=== PATIENT | male | born 1945 | race Caucasian/White ===

== ENCOUNTER 2023-08-09 09:07 | Outpatient (OUT) | payer MEDICARE, SELFPAY ==
[2023-08-09 09:50] LABS: Basophils Percent Auto 0.3 % (0.2-2.0); Eosinophils Percent Auto 0.4 % (0.9-7.0); Hematocrit 38.3 % (42.0-54.0); Hemoglobin 12.3 g/dL (14.0-18.0); Immature Granulocytes Abs Auto 0.01 10^3/uL (0.00-0.03); Immature Granulocytes Pct Auto 0.1 % (0.0-0.5); Lymphocytes Percent Auto 30.4 % (20.5-60.0); Mean Corpuscular HGB Conc 32.1 g/dL (29.9-35.2); Mean Corpuscular Hemoglobin 33.8 pg (25.9-34.0); Mean Corpuscular Volume 105.2 fL (80.0-94.0); Mean Platelet Volume 10.3 fL (9.5-13.5); Monocytes Absolute Auto 0.7 10^3/uL (0.3-0.8); Monocytes Percent Auto 9.8 % (1.7-12.0); Platelet Count 161 10^3/uL (150-450); Red Blood Count 3.64 10^6/uL (4.70-6.10); Red Cell Distribution Width 12.6 % (11.0-15.0); White Blood Count 6.7 10^3/uL (4.0-11.0)
[2023-08-09 10:21] LABS: Estimated Average Glucose 120 mg/dL; Glycohemoglobin A1C 5.8 % (4.5-6.2)
[2023-08-09 10:31] LABS: Alanine Aminotransferase 49 U/L (16-63); Albumin Globulin Ratio 0.9; Albumin Level 3.7 g/dL (3.4-5.0); Alkaline Phosphatase 85 U/L (46-116); Anion Gap 11.4; Aspartate Amino Transferase 45 U/L (15-37); BUN Creatinine Ratio 14.6; Bilirubin Total 0.7 mg/dL (0.2-1.0); Carbon Dioxide 31.5 mmol/L (21.0-32.0); Chloride 100 mmol/L (98-107); Cholesterol 152 mg/dL (<=200); Estimated GFR (African America >60 (>=60); Estimated GFR (Non-African Ame 50 (>=60); Globulin 4.2 g/dL; Glucose 139 mg/dL (74-106); HDL Cholesterol 51 mg/dL (40-60); Potassium 3.9 mmol/L (3.5-5.1); Sodium 139 mmol/L (136-145); Total Protein 7.9 g/dL (6.4-8.2); Triglycerides 172 mg/dL (<=150); VLDL CHOLESTEROL 34.4 mg/dL
[2023-08-09 12:41] LABS: Free T4 0.97 ng/dL (0.76-1.46)
== END 2023-08-09 09:08 | disposition home or self-care (01) ==
LOC: LAB 09:16
PROVIDERS: PCP Family Medicine; Visit Provider Family Medicine
DX: E78.5 Hyperlipidemia, unspecified (principal); Z12.11 Encounter for screening for malignant neoplasm of colon; R73.09 Other abnormal glucose; I10 Essential (primary) hypertension
CPT/HCPCS: 36415; 80053; 80061; 83036; 84439; 84443; 85025

== ENCOUNTER 2023-08-13 15:47 | Outpatient (REF) | payer MEDICARE, SELFPAY ==
[2023-08-13 19:06] LABS: Occult Blood Positive
== END 2023-08-13 15:48 | disposition home or self-care (01) ==
LOC: LAB 15:47
PROVIDERS: PCP Family Medicine; Visit Provider Family Medicine
DX: E78.5 Hyperlipidemia, unspecified (principal); Z12.11 Encounter for screening for malignant neoplasm of colon; R73.09 Other abnormal glucose; I10 Essential (primary) hypertension
CPT/HCPCS: G0328

== ENCOUNTER 2023-12-07 10:51 | Outpatient (OUT) | payer MEDICARE, SELFPAY ==
--- NOTE | 2023-12-07 | XR_ITS ---
[address] [address] Patient Name: QUETA QUIROGA MRN: [id number] date: 1945 Sex: M Assigned Patient Location: Current Patient Location: Accession/Order Number: [id number] Exam Date: 12/07/2023 10:55 Report Date: 12/08/2023 05:35 At the request of: GITA MAGANA Procedure: XR lumbar spine min 4V EXAMINATION: XR lumbar spine min 4V HISTORY: LOWER BACK PAIN COMPARISON: CT L-spine 11/14/2023 FINDINGS: BONES: Mechanical fusion L4-L5 via bilateral pedicle screws and rods; no appreciable hardware fracture or loosening. Mild left convex curvature of upper lumbar spine. Mild grade 1 retrolisthesis of L2 on 3 without appreciable change during flexion and extension. Moderate degenerative facet arthropathy L3-L4 through L5-S1. Posterior decompression L3 and L4. DISC SPACES: Intervertebral spacer at L4-L5. Moderate narrowing at remaining lumbar levels and visible lower thoracic spine. PARASPINOUS: Negative. No paraspinous abnormality is seen. OTHER: Negative. XR/XR lumbar spine min 4V IMPRESSION: 1. Stable mechanical fusion L4-L5 without evidence of hardware failure. 2. Multilevel moderate or greater degenerative disc disease and degenerative facet arthropathy without appreciable acute abnormality. 3. No change in alignment during flexion and extension. Electronically authenticated by: LIVE JOLLEY Date: 12/08/2023 05:35
--- OUTSIDE RECORDS SUMMARY | 2023-12-07 11:13 | XMS_ITS | CCD ---
Author Organization [facility] Care Team Providers Care Registered Phlebotomist Part Time Name Role Phone DR KAITLYNN COTA Attending Unavailable DR KAITLYNN COTA Consulting Unavailable DR KAITLYNN COTA Primary Care Unavailable DR KAITLYNN COTA Admitting Unavailable MD Kaitlynn Cota Primary Care Provider [phone] MD Kaitlynn Cota Attending Provider Kaitlynn Cota Attending Unavailable Kaitlynn Cota Primary Care Unavailable Kaitlynn Cota Admitting Unavailable Allergies Allergy Classification Reported Allergen(s) Allergy Type Date of Onset Reaction(s) Facility (1 source) Ciprofloxacin Drug Allergy 08-14-2016 [facility] Repository Problems Active Problems Problem Classification Problem Date Documented Date Episodic/Chronic Spondylosis; intervertebral disc disorders; other back problems (1 source) Unspecified thoracic, thoracolumbar and lumbosacral intervertebral disc disorder; Translations: [Unspecified thoracic, thoracolumbar and lumbosacral intervertebral disc disorder] Onset: 11-14-2023 Chronic Unclassified (3 sources) COUGH, UNSPECIFIED; Translations: [COUGH, UNSPECIFIED] Onset: 08-19-2022 Unclassified (1 source) CONTACT W/AND (SUSP) EXPOS COVID-19; Translations: [CONTACT W/AND (SUSP) EXPOS COVID-19] Onset: 08-19-2022 Past or Other Problems Problem Classification Problem Date Documented Da te Episodic/Chronic Unclassified (1 source) COUGH, UNSPECIFIED; Translations: [COUGH, UNSPECIFIED] Onset: 08-16-2022 Results Test Name Value Interpretation Reference Range Facil ity CT lumbar spine wo conon CT lumbar spine wo [facility] [address] [address] [address] Scan Report Signed Patient: Bishnu Love MR#: [id number] : 1945 Acct:[id number] Age/Sex: 78 / M ADM Date: 11/14/23 Loc: CT Room: Type: [facility] Attending Dr: Kaitlynn Cota MD Copies to: Kaitlynn Cota MD Ordering Provider: Kaitlynn Cota MD Date of Service: 11/14/23 CT/CT lumbar spine wo con: M51.9 CT lumbar spine wo con 11/14/2023 2:50 PM History:Low back pain, left-sided numbness TECHNIQUE: Multi detector CT axial slices of the lumbar spine were obtained without IV contrast. Volumetric acquisition sagittal, coronal, and 3-D reconstructions were performed and reviewed on a separate workstation. CT was performed with one or more of the following dose reduction techniques: Automated exposure control, adjustment of the mA and/or kV according to patient size, or use of iterative reconstruction technique. COMPARISON: 03/11/2013 FINDINGS: There is preservation of the vertebral body heights. There is posterior fusion at L4-L5 with posterior decompression from L2 through L4. There is mild to moderate disc height loss with vacuum disc phenomena at L1-L2, L2-L3, L3-4, with mild disc height loss and vacuum disc phenomena at L5-S1. Disc, endplate, and facet degenerative changes contribute to neural foraminal narrowing at multiple levels, greatest at L3-L4 and L2-L3. No fractures or dislocations are seen. The alignment of the lumbar spine is normal. The paraspinous soft tissues are within normal limits. The visualized lung parenchyma is unremarkable. Atherosclerotic changes are noted in the abdominal aorta and its branches. CT/CT lumbar spine wo con IMPRESSION: Fracture or subluxation. Similar posterior fusion hardware is noted at L4-5. Similar degenerative changes are noted throughout. Impression dictated by: Toby Dodge M.D.11/14/2023 4:16 PM Dictation Location: [place] [address] Transcribed By: [facility] 11/14/23 1616 Dictated By: Toby Dodge II, MD 11/14/23 1606 Signed By: 11/14/23 1616 [facility] Covid-19 PCR (CVDTBH)on 08-03 SARS-CoV-2 (COVID-19) RNA BENITO+probe Ql (Unsp spec) Not detected Normal NOT DETECTED [facility] Comment on above: Result Comment: This test is not yet approved or cleared by the [place] FDA. When there are no FDA-approved or cleared tests available, and other criteria are met, FDA can make tests available under an emergency access mechanism called an Emergency Use Authorization (EUA). The EUA for this test is supported by the [place] of Health and Human Service's (HHS's) declaration that circumstances exist to justify the emergency use of in vitro diagnostics for the detection and/or diagnosis of the virus that causes COVID-19. This EUA will remain in effect (meaning this test can be used) for the duration of the COVID-19 declaration justifying emergency of IVDs, unless it is terminated or revoked by FDA (after which the test may no longer be used). When diagnostic testing is negative, the possibility of a false negative should be considered in the context of a patient's recent exposures and the presence of clinical signs and symptoms consistent with SARS-CoV-2. Performed By: #### C VDTBH #### [facility] [address] [place] [address] Dr. Leeann Vail INFLUENZA A AND B AGon 08-16 [facility] BELOW Normal [facility] Comment on above: Result Comment: Nega tive for Flu A protein angiten. Infection due to Flu A cannot be ruled out. Flu A angiten in the sample may be below the detection limit of the test. Performed By: #### I NFLUAB #### [facility] [address] [place] [address] Dr. Leeann Vail INFLUBNEG SEE BELOW Normal [facility] Comment on above: Result Comment: Nega tive for Flu B protein antigen. Infection due to Flu B cannot be ruled out. Flu B antigen in the sample may be below the detection limit of the test. Performed By: #### I NFLUAB #### [facility] [address] [place] [address] Dr. Leeann Vail INFLUENZA A AG Negative Normal NEGATIVE SEE COMMENT [facility] Comment on above: Performed By: #### I NFLUAB #### [facility] [address] [place] [address] Dr. Leeann Vail INFLUENZA B AG Negative Normal NEGATIVE SEE COMMENT [facility] Comment on above: Performed By: #### I NFLUAB #### [facility] [address] [address] [address] Leeann Vail INTERNAL CONTROLS Within Normal Limits Normal Wi thin Normal Limits [facility] Comment on above: Performed By: #### I NFLUAB #### [facility] [address] [address] [address] Leeann Vail Lab Reportson 04-02-2020 Lab Reports [id number] CD:127 [facility] Consent for Procedure/Surger yon 03-24-2020 Consent for Procedure/Surgery [id number] 0CD:127 [facility] Ambulatory Clinical Summaryo n 03-16-2020 Ambulatory Clinical Summary {[id number]}CD:[id number] [facility] Physician Referralon 020 Physician Referral [id number] CD:127 [facility] Encounters Encounter Date Encounter Type Care Provider Facility Start: 11-14-2023 End: 11-14-2023 ambulatory Kaitlynn Cota Facility:[facility] Start: 11-14-2023 End: 11-14-2023 ambulatory MD Kaitlynn Cota Work Phone: [facility] Work Phone: Start: 11-14-2023 End: 11-14-2023 Patient encounter procedure MD Kaitlynn Coat Work Phone: [facility] [place] Work Phone: Start: 08-16-2022 End: 08-16-[address] KAITLYNN COTA Facility:[facility] Procedures Date Procedure Procedure Detail Performing Clinician Start: 11-14-2023 CT of lumbar spine without contrast MD Kaitlynn Cota Work Phone: Payers Date Payer Category Payer Self-pay 1959 Medicare [id number] 1959 Unknown [id number] 1945 Unknown [id number] Medicare Medicare Outpatient [id number] Unknown [employer] C o [id number] Unknown [id number] Social History Date Type Detail Facility Tobacco smoking stat [facility] Unknown if ever smoked [facility] Work Phone: Start: 1945 Sex Assigned At Male F [facility] Evaluation note Note Date & Type Note Facility Evaluation note No assessment information availa ble [facility] Work Phone: Summary Purpose Family History No Family History Records FoundNo Family History Records FoundNo Family History Records Found Advance Directives No Advanced Directives Records Found Advance Directive Response Recorded Date/ Time Advance Directives No November 12 024 3:11pm Chief Complaint and Reason for Visit Chief Complaint m51.9 Additional Source Comments (unrecognized sect ion and content) No Status Records FoundNo Status Records FoundNo Status Records Found INFORMATION SOURCE (unrecogn ized section and content) DATE CREATED AUTHOR 04/30/2020 [facility] DATE CREATED AUTHOR AUTHOR'S ORGANIZ ATION 08/23/2022 [facility] DATE CREATED AUTHOR AUTHOR'S ORGANIZ ATION 11/23/2023 [facility] Care Teams (unrecognized sec tion and content) Team Status: Active Member Role Status Dates Kaitlynn Cota MD Primary Care Provider Active Team Status: Inactive Member Role Status Dates Kaitlynn Cota MD Primary Care Provide r, Attending Provider Active Start: November 14, 2023 End: November 14, 2023 Goals (unrecognized section and content) Goals may be documented in a n alternate section FOR RECORDS PERTAINING TO PATIENTS WHO ARE OR HAVE BEEN ENROLLED IN A CHEMICAL DEPENDENCY/SUBSTANCEABUSE PROGRAM, SOME INFORMATION MAY BE OMITTED. This clinical summary was aggregated from multiple sources. Caution should be exercised in using it in the provision of clinical care. This summary normalizes information from multiple sources, and as a consequence, information in this document may materially change the coding, format and clinical context of patient data. In addition, data may be omitted in some cases. CLINICAL DECISIONS SHOULD BE BASED ON THE PRIMARY CLINICAL RECORDS. [facility]. provides no warranty or guarantee of the accuracy or completeness of information in this document.
== END 2023-12-07 10:52 | disposition home or self-care (01) ==
LOC: EC 10:51
PROVIDERS: PCP Family Medicine; Visit Provider Orthopaedic Surgery Orthopaedic Surgery of the Spine
DX: M54.50 Low back pain, unspecified (principal); M51.36 Other intervertebral disc degeneration, lumbar region
CPT/HCPCS: 72110

== ENCOUNTER 2024-01-14 13:49 | Outpatient (RCR) | payer MEDICARE, SELFPAY | END 2024-03-06 15:56 | disposition home or self-care (01) | LOC: PT 13:49 | PROVIDERS: PCP Family Medicine; Visit Provider Orthopaedic Surgery Orthopaedic Surgery of the Spine | DX: M48.062 Spinal stenosis, lumbar region with neurogenic claudication (principal) | CPT/HCPCS: 97010; 97110; 97112; 97140; 97162; 97530; G0283 ==

== ENCOUNTER 2024-04-09 15:13 | Outpatient (OUT) | payer MEDICARE, SELFPAY ==
--- NOTE | 2024-04-09 15:21 | US_ITS ---
[address] [address] Patient Name: QUETA QUIROGA MRN: [id number] date: 1945 Sex: M Assigned Patient Location: US Current Patient Location: Accession/Order Number: [id number] Exam Date: 04/09/2024 15:25 Report Date: 04/10/2024 05:38 At the request of: KAITLYNN LIZ Procedure: US venous doppler LE BI EXAMINATION: US venous doppler LE BI HISTORY: Edema R60.9 COMPARISON: None FINDINGS: REGION: Bilateral lower extremities THROMBI: None. COMPRESSIBILITY: Normal compressibility. FLOW: Normal waveform and antegrade flow between 5 and 20 cm/s. OTHER: Prior stripping of great saphenous vein. US/US venous doppler LE BI IMPRESSION: 1. No deep vein thrombus within the right or left lower extremity. Electronically authenticated by: LIVE JOLLEY Date: 04/10/2024 05:38
--- OUTSIDE RECORDS SUMMARY | 2024-04-09 15:21 | XMS_ITS | CCD ---
Author Organization [facility] Care Team Providers Care Soft Sugar Supervisor Name Role Phone DR KAITLYNN LIZ Attending Unavailable DR KAITLYNN LIZ Consulting Unavailable DR KAITLYNN LIZ Primary Care Unavailable DR KAITLYNN LIZ Admitting Unavailable MD Kaitlynn Liz Primary Care Provider [phone] MD Kaitlynn Liz Attending Provider [phone] MD Jed Salgado F Attending Provider [phone] MD Kaitlynn Liz Primary Care Provider [phone] WILLIAM Monte Attending Provider [phone] MD Kaitlynn Liz Primary Care Provider [phone] MD Albert Swan Admit Provider MD Albert Swan Attending Provider MARK Franco Other Provider Unavailable MARK Edge Other Provider Unavailable MARK Martin Other Provider Unavailable MARK Srinivasan Other Provider Unavailable MARK Pedraza Other Provider Unavailable MD Jackelyn Mott Other Provider DO Gisela Chaidez Other Provider MD Alex Pabon Other Provider [phone] DO Percy Hernandez Other Provider MD Josiah Avila Other Provider [phone] MD Nancy Poon Other Provider MD Elvin Reece Other Provider Unavailable RALPH Ruggiero Other Provider [phone] MD Rich Mcclain Other Provider [phone] MD Geovani Blue Other Provider MD Clara De La Torre Other Provider MD Ada Vo Other Provider DO Stephen Salinas Other Provider MD Kaitlin Fournier Other Provider MD Steve Steinberg Other Provider GISELLE Glass-C Leta Alberts Other Provider RALPH Kumar Other Provider Unavailable MD Ren Ortega Other Provider MD Mynor Hernandez Other Provider MD Flavio Gee Other Provider MD Cindy Hager Other Provider Unavailable MD Ousmane Benson Other Provider DO Kristan Valle Other Provider DO Dk Patino Other Provider RALPH King Other Provider DO Gus Marie Other Provider [phone] MD Joey Olson Other Provider RALPH Christopher Other Provider RALPH Cabello Other Provider [phone] MD Kelsea Steele Other Provider MD Shimon Stout Other Provider DO Josh Brown Other Provider DO Han Ruth Other Provider MD Felix Gee Other Provider MD Julia Rai Other Provider RALPH Deal Other Provider MD Antonio Boss Other Provider MD Дмитрий Clemons Other Provider MARK Kowalski Other Provider Unavailable Hoy, Kaitlynn M Attending Unavailable Hoy, Kaitlynn M Primary Care Unavailable Hoy, Kaitlynn M Admitting Unavailable Hoy, Kaitlynn M Primary Care Unavailable Naomi, Selvon F Attending Unavailable Naomi, Selvon F Admitting Unavailable Hoy, Kaitlynn M Primary Care Unavailable Austin Monte L Attending Unavailable Mell, Austin L Admitting Unavailable Beny, Albert Attending Unavailable Beny, Albert Admitting Unavailable Hoy, Kaitlynn M Primary Care Unavailable Nathalie Franco Consulting Unavailable Leslie Edge Consulting Unavailable Tejal Martin Consulting Unavailable Nuris Srinivasan Consulting Unavailable Halie Pedraza Consulting Unavailable Jackelyn Mott Consulting Unavailable Gisela Chaidez Consulting Unavailable Alex Pabon Consulting Unavailable Percy Hernandez Consulting UnavailJosiah Grimaldo Consulting Unavailable Nancy Poon Consulting Unavailable Elvin Reece Consulting Unavailable Sharon Ruggiero Consulting UnavailRich Narayan Consulting Unavailable Geovani Blue Consulting Unavailable Clara De La Torre Consulting Unavailable Ada Vo Consulting Unavailable Stephen Salinas Consulting Unavailable Kaitlin Fournier Consulting Unavailable Steve Steinberg Consulting Unavailable Leta Glass Consulting Unavailable Ronald Kumar Consulting Unavailable Ren Ortega Consulting Unavailab Mynor Chase Consulting Unavailable Flavio Gee Consulting Unavailable Cindy Hager Consulting Unavailable Ousmane Benson Consulting Unavailable Kristan Valle Consulting Unavailable Dk Patino Consulting Unavailable Vilma King Consulting Unavailable Gus Marie Consulting Unavailable Joey Olson Consulting Unavailable Tiffany Christopher Consulting Unavailable Elaine Cabello Consulting Unavailable Kelsea Steele Consulting Unavailable Shimon Stout Consulting Unavailable Josh Brown Consulting Unavailable Han Ruth Consulting Unavailable Felix Gee Consulting Unavailable Julia Rai Consulting Unava ilMeche Copeland Consulting Unavailable Antonio Boss Consulting Unavailable Дмитрий Clemons Consulting Unavailable Kowalski, Ingrid Consulting Unavailable Allergies Allergy Classification Reported Allergen(s) Allergy Type Date of Onset Reaction(s) Facility (1 source) Ciprofloxacin Drug Allergy 08-14-2016 [facility] Repository (2 sources) Cephalexin; Translations: [cephalexin] Drug Allergy 03-18-2024 Itching [facility] Medications Current Medications Medication Drug Class(es) Dates Sig (Normalized) Sig (Original) acetaminophen 325 mg / oxyCODONE hydrochloride 5 mg oral tablet (2 sources) Opioid Agonist Start: 03-31-2024 take 1 tablet by mouth every six hours Oxycodone-Acetami nophen Active 1 TAB PO Every 6 hours 20 March 31, 2024 Start: 03-16-2024 End: 03-31-2024 take 1 tablet by mouth every six hours Oxycodone-Acetaminophen (Percocet) 5-325 mg tablet Discontinued 1 TAB PO Every 6 hours March 16, 2024 12:00am March 31, 2024 9:20am aspirin 81 mg oral tablet (2 sources) Platelet Aggregation Inhibitor, Nonsteroidal Anti-inflammatory Drug Start: 03-16-2024 End: 03-31-2024 take 81 mg by mouth once daily Aspirin Active 81 MG PO Daily March 31, 2024 9:19am atorvastatin 10 mg oral tablet (2 sources) HMG-CoA Reductase Inhibitor Start: 03-16-2024 End: 03-31-2024 take 10 mg by mouth once daily at bedtime Atorvastatin Active 10 MG PO Daily at bedtime 30 March 31, 2024 12:00am cyclobenzaprine hydrochloride 10 mg oral tablet (2 sources) Muscle Relaxant Start: 03-16-2024 End: 03-31-2024 take 10 mg by mouth three times daily Cyclobenzaprine Active 10 MG PO Three times daily 30 March 31, 2024 12:00am docusate sodium 100 mg oral capsule (1 source) Start: 03-31-2024 take 100 mg by mouth twice daily Docusate Sodium Active 100 MG PO Twice daily 60 March 31, 2024 12:00am ferrous sulfate 324 mg delayed release oral tablet (2 sources) Start: 03-31-2024 Ferrous Sulfate Active 324 MG PO Every 48 hours 15 March 31, 2024 12:00am Start: 03-16-2024 End: 03-31-2024 take 1 tablet by mouth twice daily Ferrous Sulfate (Feosol) 325 mg (65 mg iron) tablet Discontinued 325 MG PO Twice daily March 16, 2024 12:00am March 31, 2024 9:20am glimepiride 1 mg oral tablet (2 sources) Sulfonylurea Start: 03-16-2024 End: 03-31-2024 take 1 mg by mouth once daily at breakfast Glimepiride Active 1 MG PO Daily with breakfast March 31, 2024 12:00am lisinopril 20 mg oral tablet (2 sources) Angiotensin Converting Enzyme Inhibitor Start: 03-31-2024 take 20 mg by mouth once daily Lisinopril Active 20 MG PO Daily March 31, 2024 12:00am Start: 03-16-2024 End: 03-31-2024 take 40 mg by mouth once daily Lisinopril Discontinued 40 MG PO Daily March 16, 2024 12:00am March 31, 2024 9:20am melatonin 5 mg oral tablet (1 source) Start: 03-31-2024 take 10 mg by mouth once daily at bedtime Melatonin Active 10 MG PO Daily at bedtime 60 March 31, 2024 12:00am metoprolol tartrate 50 mg oral tablet (1 source) beta-Adrenergic Millie Start: 03-31-2024 take 50 mg by mouth twice daily Metoprolol Tartrate Active 50 MG PO Twice daily 60 March 31, 2024 12:00am pantoprazole 40 mg delayed release oral tablet (1 source) Proton Pump Inhibitor Start: 03-31-2024 take 40 mg by mouth once daily Pantoprazole Active 40 MG PO Daily 30 March 31, 2024 12:00am traZODone hydrochloride 50 mg oral tablet (1 source) Serotonin Reuptake Inhibitor Start: 03-31-2024 take 50 mg by mouth once daily at bedtime Trazodone Active 50 MG PO Daily at bedtime March 31, 2024 12:00am Completed/Discontinued Medications Medication Drug Class(es) Dates Sig (Normalized) Sig (Original) atenolol 50 mg oral tablet (1 source) beta-Adrenergic Millie Start: 03-16-2024 End: 03-31-2024 take 50 mg by mouth once daily Atenolol Discontinued 50 MG PO Daily March 16, 2024 12:00am March 31, 2024 9:20am calcium carbonate 1500 mg / cholecalciferol 200 unt oral tablet (1 source) Vitamin D Start: 03-16-2024 End: 03-31-2024 take 1 tablet by mouth once daily Calcium Carbonate-Vitamin D3 (Calcium 600 + D(3)) 600 mg-5 mcg (200 unit) tablet Discontinued 1 TAB PO Daily March 16, 2024 12:00am March 31, 2024 9:20am fluticasone propionate 0.05 mg/actuat metered dose nasal spray (1 source) Corticosteroid Start: 03-16-2024 End: 03-31-2024 take 1 spray(s) nasal route once daily Fluticasone Propionate (24 Hour Allergy Relief) 50 mcg/actuation spray,suspension Discontinued 1 SPRAY INTRANASAL Daily March 16, 2024 12:00am March 31, 2024 9:20am administer into each nostril furosemide 20 mg oral tablet (1 source) Loop Diuretic Start: 03-16-2024 End: 03-31-2024 take 20 mg by mouth once daily Furosemide Discontinued 20 MG PO Daily March 16, 2024 12:00am March 31, 2024 9:20am hyoscyamine sulfate 0.125 mg disintegrating oral tablet (1 source) Start: 03-16-2024 End: 03-31-2024 take 1 tablet by mouth every six hours Hyoscyamine Sulfate (Anaspaz) 0.125 mg tablet,disintegra ting Discontinued 0.125 MG PO Every 6 hours March 16, 2024 12:00am March 31, 2024 9:20am meloxicam 15 mg oral tablet (1 source) Nonsteroidal Anti-inflammatory Drug Start: 03-16-2024 End: 03-31-2024 take 15 mg by mouth once daily Meloxicam Discontinued 15 MG PO Daily March 16, 2024 12:00am March 31, 2024 9:20am Multivitamin (Daily Multi-Vitamin) tablet (1 source) Start: 03-16-2024 End: 03-31-2024 take 1 tablet by mouth once daily Multivitamin (Daily Multi-Vitamin) tablet Discontinued 1 TAB PO Daily March 16, 2024 12:00am March 31, 2024 9:20am nabumetone 500 mg oral tablet (1 source) Nonsteroidal Anti-inflammatory Drug Start: 03-16-2024 End: 03-31-2024 take 500 mg by mouth twice daily Nabumetone Discontinued 500 MG PO Twice daily March 16, 2024 12:00am March 31, 2024 9:20am [place] 6-Jkm-Jlj-Fish Oil (Fish Oil) 1,000 mg (120 mg-180 mg) capsule (1 source) Start: 03-16-2024 End: 03-31-2024 take 1 capsule by mouth once daily [place] 5-Xlj-Wgt-Fish Oil (Fish Oil) 1,000 mg (120 mg-180 mg) capsule Discontinued 1 CAP PO Daily March 16, 2024 12:00am March 31, 2024 9:20am omeprazole 20 mg delayed release oral capsule (1 source) Proton Pump Inhibitor Start: 03-16-2024 End: 03-31-2024 take 20 mg by mouth once daily Omeprazole Discontinued 20 MG PO Daily March 16, 2024 12:00am March 31, 2024 9:20am ondansetron 4 mg disintegrating oral tablet (1 source) Serotonin-3 Receptor Antagonist Start: 03-16-2024 End: 03-31-2024 take 4 mg by mouth every six hours Ondansetron Discontinued 4 MG PO Every 6 hours March 16, 2024 12:00am March 31, 2024 9:20am Problems Active Problems Problem Classification Problem Date Documented Date Episodic/Chronic Administrative/socia l admission (3 sources) Other reduced mobility; Translations: [Impaired mobility and activities of daily living] Onset: 03-16-2024 03-17-2024 Episodic Bacterial infection; unspecified site (1 source) Bacterial infection, unspecified; Translations: [Bacterial infection, unspecified] Onset: 03-16-2024 Episodic Chronic kidney disease (3 sources) Chronic kidney disease; Translations: [Chronic kidney disease, unspecified] Onset: 03-16-2024 03-17-2024 Chronic Diabetes mellitus without complication (3 sources) Diabetes mellitus; Translations: [Type 2 diabetes mellitus without complications] Onset: 03-16-2024 03-17-2024 Chronic Disorders of lipid metabolism (3 sources) Hyperlipidemia; Translations: [Hyperlipidemia, unspecified] Onset: 03-16-2024 03-17-2024 Chronic Esophageal disorders (3 sources) Gastroesophageal reflux disease; Translations: [Gastro-esophageal reflux disease without esophagitis] Onset: 03-16-2024 03-17-2024 Chronic Essential hypertension (3 sources) Hypertensive disorder; Translations: [Essential (primary) hypertension] Onset: 03-16-2024 03-17-2024 Chronic Other connective tissue disease (1 source) History of lumbar fusion; Translations: [Arthrodesis status] 03-17-2024 Episodic Other connective tissue disease (1 source) Arthrodesis status; Translations: [Arthrodesis status] 03-31-2024 Episodic Residual codes; unclassified (1 source) Other specified health status; Translations: [Other specified health status] Onset: 03-16-2024 Episodic Spondylosis; intervertebral disc disorders; other back problems (2 sources) Other intervertebral disc degeneration, lumbosacral region; Translations: [Unspecified thoracic, thoracolumbar and lumbosacral intervertebral disc disorder] Onset: 11-14-2023 Chronic Spondylosis; intervertebral disc disorders; other back problems (3 sources) Spinal stenosis of lumbar region; Translations: [Spinal stenosis, lumbar region without neurogenic claudication] Onset: 03-16-2024 03-17-2024 Episodic Unclassified (3 sources) COUGH, UNSPECIFIED; Translations: [COUGH, UNSPECIFIED] Onset: 08-19-2022 Unclassified (1 source) CONTACT W/AND (SUSP) EXPOS COVID-19; Translations: [CONTACT W/AND (SUSP) EXPOS COVID-19] Onset: 08-19-2022 Unclassified (1 source) Low back pain, unspecified; Translations: [Low back pain, unspecified] Onset: 12-28-2023 Urinary tract infections (3 sources) Bacterial urinary infection; Translations: [Urinary tract infection, site not specified] Onset: 03-16-2024 03-19-2024 Episodic Viral infection (4 sources) Disease caused by 2019-nCoV; Translations: [COVID-19] 03-18-2024 Episodic Viral infection (1 source) COVID-19; Translations: [COVID-19] Onset: 03-16-2024 Past or Other Problems Problem Classification Problem Date Documented Da te Episodic/Chronic Unclassified (1 source) COUGH, UNSPECIFIED; Translations: [COUGH, UNSPECIFIED] Onset: 08-16-2022 Results Test Name Value Interpretation Reference Range Facility Capillary blood glucose gayla urement by glucometer (mass/volume)Ordered By: Albert Swan on 03-31-2024 Glucose [Mass/Vol] 127 mg/dL Normal [facility] Comment on above: Random Glucose Refer ence Range is dependent on time and content of last meal. Glucose of more than 200 mg/dL in a nonstressed, ambulatory subject supports the diagnosis of Diabetes Mellitus. Result Comment: [place] Glucose Reference Range is dependent on time and content of last meal. Glucose of more than 200 mg/dL in a nonstressed, ambulatory subject supports the diagnosis of Diabetes Mellitus. PERFORMED BY: [address] [place] [address] PATHOLOGIST CASTER HELPER SHELBIE ALMONTE M.D. Performed By: #### G LULS #### Point of Care testing , Glucose Poct Glucometerson 0 03-30-2024 Glucose [Mass/Vol] 203 mg/dL Normal [facility] Comment on above: Result Comment: [facility] Glucose Reference Range is dependent on time and content of last meal. Glucose of more than 200 mg/dL in a nonstressed, ambulatory subject supports the diagnosis of Diabetes Mellitus. PERFORMED BY: [address] [place] [address] PATHOLOGIST CASTER HELPER SHELBIE ALMONTE M.D. Performed By: #### G LULS #### Point of Care testing , Glucose [Mass/Vol] 121 mg/dL Normal [facility] Comment on above: Result Comment: [place] Glucose Reference Range is dependent on time and content of last meal. Glucose of more than 200 mg/dL in a nonstressed, ambulatory subject supports the diagnosis of Diabetes Mellitus. PERFORMED BY: [address] [place] [address] PATHOLOGIST CASTER HELPER SHELBIE ALMONTE M.D. Performed By: #### G LULS #### Point of Care testing , Glucose [Mass/Vol] 174 mg/dL Normal [facility] Comment on above: Result Comment: [place] Glucose Reference Range is dependent on time and content of last meal. Glucose of more than 200 mg/dL in a nonstressed, ambulatory subject supports the diagnosis of Diabetes Mellitus. PERFORMED BY: [place] [address] PATHOLOGIST CASTER HELPER SHELBIE ALMONTE M.D. Performed By: #### G LULS #### Point of Care testing , Glucose [Mass/Vol] 131 mg/dL Normal [facility] Comment on above: Result Comment: [place] [facility] Glucose Reference Range is dependent on time and content of last meal. Glucose of more than 200 mg/dL in a nonstressed, ambulatory subject supports the diagnosis of Diabetes Mellitus. PERFORMED BY: [place] [address] PATHOLOGIST CASTER HELPER SHELBIE ALMONTE M.D. Performed By: #### G LULS #### Point of Care testing , Commemt1 Glu2: Cleaned Meter Normal [facility] Comment on above: Result Comment: PERF ORMED BY: [place] [address] PATHOLOGIST CASTER HELPER SHELBIE ALMONTE M.D. Performed By: #### G LULS #### Point of Care testing , Glucose [Mass/Vol] 120 mg/dL Normal [facility] Comment on above: Result Comment: [place] Glucose Reference Range is dependent on time and content of last meal. Glucose of more than 200 mg/dL in a nonstressed, ambulatory subject supports the diagnosis of Diabetes Mellitus. Performed By: #### G LULS #### Point of Care testing , No Panel InformationOrdered By: Albert Swan on 03-30-2024 Bedside Glucose Comment Glu2: cleaned meter [facility] Glucose Poct Glucometerson 0 03-29-2024 Commemt1 Glu2: Cleaned Meter Normal [facility] Comment on above: Result Comment: PERF ORMED BY: [place] [id number] PATHOLOGIST CASTER HELPER SHELBIE ALMONTE M.D. Performed By: #### G LULS #### Point of Care testing , Glucose [Mass/Vol] 204 mg/dL Normal [facility] Comment on above: Result Comment: [place] [facility] Glucose Reference Range is dependent on time and content of last meal. Glucose of more than 200 mg/dL in a nonstressed, ambulatory subject supports the diagnosis of Diabetes Mellitus. Performed By: #### G SUPA #### Point of Care testing , Commemt1 Glu2: Cleaned Meter Normal [facility] Comment on above: Result Comment: PERF ORMED BY: [address] [place] [address] PATHOLOGIST CASTER HELPER SHELBIE ALMONTE M.D. Performed By: #### P AB, CMP, CBC #### [address] Glucose [Mass/Vol] 150 mg/dL Normal [facility] Comment on above: Result Comment: [place] [facility] Glucose Reference Range is dependent on time and content of last meal. Glucose of more than 200 mg/dL in a nonstressed, ambulatory subject supports the diagnosis of Diabetes Mellitus. Performed By: #### P AB, CMP, CBC #### [address] Glucose [Mass/Vol] 127 mg/dL Normal [facility] Comment on above: Result Comment: [place] om Glucose Reference Range is dependent on time and content of last meal. Glucose of more than 200 mg/dL in a nonstressed, ambulatory subject supports the diagnosis of Diabetes Mellitus. PERFORMED BY: [place] [address] PATHOLOGIST CASTER HELPER SHELBIE ALMONTE M.D. Performed By: #### P AB, CMP, CBC #### [place] [address] [place] Glucose [Mass/Vol] 120 mg/dL Normal [facility] Comment on above: Result Comment: [place] [facility] Glucose Reference Range is dependent on time and content of last meal. Glucose of more than 200 mg/dL in a nonstressed, ambulatory subject supports the diagnosis of Diabetes Mellitus. PERFORMED BY: [address] [place] [address] PATHOLOGIST CASTER HELPER SHELBIE ALMONTE M.D. Performed By: #### G LULS #### Point of Care testing , Glucose Poct Glucometerson 0 03-28-2024 Glucose [Mass/Vol] 193 mg/dL Normal [facility] Comment on above: Result Comment: [place] [facility] Glucose Reference Range is dependent on time and content of last meal. Glucose of more than 200 mg/dL in a nonstressed, ambulatory subject supports the diagnosis of Diabetes Mellitus. PERFORMED BY: [address] [place] [id number] PATHOLOGIST CASTER HELPER SHELBIE ALMONTE M.D. Performed By: #### G LULS #### Point of Care testing , Glucose [Mass/Vol] 105 mg/dL Normal [facility] Comment on above: Result Comment: [place] om Glucose Reference Range is dependent on time and content of last meal. Glucose of more than 200 mg/dL in a nonstressed, ambulatory subject supports the diagnosis of Diabetes Mellitus. Performed By: #### G LULS #### Point of Care testing , Commemt1 Glu2: Cleaned Meter Normal [facility] Comment on above: Result Comment: PERF ORMED BY: [facility] [address] [place] [address] PATHOLOGIST CASTER HELPER SHELBIE ALMONTE M.D. Performed By: #### G LULS #### Point of Care testing , Glucose [Mass/Vol] 135 mg/dL Normal [facility] Comment on above: Result Comment: [place] [facility] Glucose Reference Range is dependent on time and content of last meal. Glucose of more than 200 mg/dL in a nonstressed, ambulatory subject supports the diagnosis of Diabetes Mellitus. Performed By: #### G LULS #### Point of Care testing , Glucose [Mass/Vol] 128 mg/dL Normal [facility] Comment on above: Result Comment: [place] om Glucose Reference Range is dependent on time and content of last meal. Glucose of more than 200 mg/dL in a nonstressed, ambulatory subject supports the diagnosis of Diabetes Mellitus. PERFORMED BY: [facility] [address] [place] [address] PATHOLOGIST CASTER HELPER SHELBIE ALMONTE M.D. Performed By: #### G LULS #### Point of Care testing , Glucose Poct Glucometerson 0 03-27-2024 Glucose [Mass/Vol] 173 mg/dL Normal [facility] Comment on above: Result Comment: [place] [facility] Glucose Reference Range is dependent on time and content of last meal. Glucose of more than 200 mg/dL in a nonstressed, ambulatory subject supports the diagnosis of Diabetes Mellitus. PERFORMED BY: [place] [address] PATHOLOGIST CASTER HELPER SHELBIE ALMONTE M.D. Performed By: #### G LULS #### Point of Care testing , Commemt1 Glu2: Cleaned Meter Normal [facility] Comment on above: Result Comment: PERF ORMED BY: [place] [address] PATHOLOGIST CASTER HELPER SHELBIE ALMONTE M.D. Performed By: #### P AB, CMP, CBC #### [address] Glucose [Mass/Vol] 156 mg/dL Normal [facility] Comment on above: Result Comment: [place] [facility] Glucose Reference Range is dependent on time and content of last meal. Glucose of more than 200 mg/dL in a nonstressed, ambulatory subject supports the diagnosis of Diabetes Mellitus. Performed By: #### P AB, CMP, CBC #### [address] Glucose [Mass/Vol] 159 mg/dL Normal [facility] Comment on above: Result Comment: [place] [facility] Glucose Reference Range is dependent on time and content of last meal. Glucose of more than 200 mg/dL in a nonstressed, ambulatory subject supports the diagnosis of Diabetes Mellitus. PERFORMED BY: [place] [address] PATHOLOGIST CASTER HELPER SHELBIE ALMONTE M.D. Performed By: #### G LULS #### Point of Care testing , Glucose [Mass/Vol] 130 mg/dL Normal [facility] Comment on above: Result Comment: [place] om Glucose Reference Range is dependent on time and content of last meal. Glucose of more than 200 mg/dL in a nonstressed, ambulatory subject supports the diagnosis of Diabetes Mellitus. PERFORMED BY: [address] [id number] PATHOLOGIST CASTER HELPER SHELBIE ALMONTE M.D. Performed By: #### G LULS #### Point of Care testing , Glucose Poct Glucometerson 0 03-26-2024 Commemt1 Glu2: Cleaned Meter Normal [facility] Comment on above: Result Comment: PERF ORMED BY: [facility] [address] [place] [id number] PATHOLOGIST CASTER HELPER SHELBIE ALMONTE M.D. Performed By: #### G LULS #### Point of Care testing , Glucose [Mass/Vol] 226 mg/dL Normal [facility] Comment on above: Result Comment: [place] Glucose Reference Range is dependent on time and content of last meal. Glucose of more than 200 mg/dL in a nonstressed, ambulatory subject supports the diagnosis of Diabetes Mellitus. Performed By: #### G LULS #### Point of Care testing , Glucose [Mass/Vol] 92 mg/dL Normal [facility] Comment on above: Result Comment: [place] Glucose Reference Range is dependent on time and content of last meal. Glucose of more than 200 mg/dL in a nonstressed, ambulatory subject supports the diagnosis of Diabetes Mellitus. PERFORMED BY: [address] [address] PATHOLOGIST CASTER HELPER SHELBIE ALMONTE M.D. Performed By: #### G LULS #### Point of Care testing , Glucose [Mass/Vol] 239 mg/dL Normal [facility] Comment on above: Result Comment: [place] Glucose Reference Range is dependent on time and content of last meal. Glucose of more than 200 mg/dL in a nonstressed, ambulatory subject supports the diagnosis of Diabetes Mellitus. PERFORMED BY: [address] [place] [address] PATHOLOGIST CASTER HELPER SHELBIE ALMONTE M.D. Performed By: #### G LULS #### Point of Care testing , Glucose [Mass/Vol] 129 mg/dL Normal [facility] Comment on above: Result Comment: [place] Glucose Reference Range is dependent on time and content of last meal. Glucose of more than 200 mg/dL in a nonstressed, ambulatory subject supports the diagnosis of Diabetes Mellitus. PERFORMED BY: [place] [address] PATHOLOGIST CASTER HELPER SHELBIE ALMONTE M.D. Performed By: #### G LULS #### Point of Care testing , Glucose Poct Glucometerson 0 03-25-2024 Commemt1 Glu2: Cleaned Meter Normal [facility] Comment on above: Result Comment: PERF ORMED BY: [place] [phone] PATHOLOGIST CASTER HELPER SHELBIE ALMONTE M.D. Performed By: #### P AB, CMP, CBC #### [address] Glucose [Mass/Vol] 196 mg/dL Normal [facility] Comment on above: Result Comment: [place] Glucose Reference Range is dependent on time and content of last meal. Glucose of more than 200 mg/dL in a nonstressed, ambulatory subject supports the diagnosis of Diabetes Mellitus. Performed By: #### P AB, CMP, CBC #### [address] Commemt1 Glu2: Cleaned Meter Normal [facility] Comment on above: Result Comment: PERF ORMED BY: [place] [address] PATHOLOGIST CASTER HELPER SHELBIE ALMONTE M.D. Performed By: #### G LULS #### Point of Care testing , Glucose [Mass/Vol] 114 mg/dL Normal [facility] Comment on above: Result Comment: [place] Glucose Reference Range is dependent on time and content of last meal. Glucose of more than 200 mg/dL in a nonstressed, ambulatory subject supports the diagnosis of Diabetes Mellitus. Performed By: #### G LULS #### Point of Care testing , Glucose [Mass/Vol] 258 mg/dL Normal [facility] Comment on above: Result Comment: [place] Glucose Reference Range is dependent on time and content of last meal. Glucose of more than 200 mg/dL in a nonstressed, ambulatory subject supports the diagnosis of Diabetes Mellitus. PERFORMED BY: [place] [address] PATHOLOGIST CASTER HELPER SHELBIE ALMONTE M.D. Performed By: #### P AB, CMP, CBC #### [address] Glucose [Mass/Vol] 148 mg/dL Normal [facility] Comment on above: Result Comment: [place] Glucose Reference Range is dependent on time and content of last meal. Glucose of more than 200 mg/dL in a nonstressed, ambulatory subject supports the diagnosis of Diabetes Mellitus. PERFORMED BY: [place] [address] PATHOLOGIST CASTER HELPER SHELBIE ALMONTE M.D. Performed By: #### G LULS #### Point of Care testing , COVID-19 [facility] 03-24-2024 SARS-CoV-2 (COVID-19) RNA BENITO+probe Ql (Unsp spec) Negative Normal Negative [facility] Comment on above: Order Comment: Healt hcare Worker?: N Result Comment: Testing for SARS-CoV-2 by RT-PCR This test was developed and its performance characteristics determined by [employer] and validated at the [facility]. This test has not been FDA cleared or approved. This test has been authorized by FDA under an Emergency Use Authorization (EUA). This test has been validated in accordance with the FDA's Guidance Document (Policy for Diagnostics Testing in Laboratories Certified to Perform High Complexity Testing under CLIA prior to Emergency Use Authorization for Coronavirus Disease-2019 during the Public Health Emergency) issued on December 04, 2019. This test is only authorized for the duration of time the declaration that circumstances exist justifying the authorization of the emergency use of in vitro diagnostic tests for detection of SARS-CoV-2 virus and/or diagnosis of COVID-19 infection under section 564(b)(1) of the Act, 21 U.S.C. 360bbb-3(b)(1), unless the authorization is terminated or revoked sooner. PERFORMED BY: [facility] [address] [place] [address] PATHOLOGIST CASTER HELPER SHELBIE ALMONTE M.D. Performed By: #### G LULS #### Point of Care testing , COVID-19 Positive/NegativeOr dered By: Albert Swan on 03-24-2024 SARS-CoV-2 (COVID-19) N gene BENITO+probe Ql (Resp) Negative Negative [facility] Comment on above: Testing for SARS-CoV -2 by RT-PCRThis test was developed and its performance characteristics determined by [employer]) and validated at the [facility]. This test has not been FDA cleared or approved. This test has been authorized by FDA under an Emergency Use Authorization (EUA). This test has been validated in accordance with the FDA's Guidance Document (Policy for Diagnostics Testing in Laboratories Certified to Perform High Complexity Testing under CLIA prior to Emergency Use Authorization for Coronavirus Disease-2019 during the Public Health Emergency) issued on December 04, 2019. This test is only authorized for the duration of time the declaration that circumstances exist justifying the authorization of the emergency use of in vitro diagnostic tests for detection of SARS-CoV-2 virus and/or diagnosis of COVID-19 infection under section 564(b)(1) of the Act, 21 U.S.C. 360bbb-3(b)(1), unless the authorization is terminated or revoked sooner. Glucose Poct Glucometerson 0 03-24-2024 Glucose [Mass/Vol] 152 mg/dL Normal [facility] Comment on above: Result Comment: [facility] Glucose Reference Range is dependent on time and content of last meal. Glucose of more than 200 mg/dL in a nonstressed, ambulatory subject supports the diagnosis of Diabetes Mellitus. PERFORMED BY: [facility] [address] [place] [address] PATHOLOGIST CASTER HELPER SHELBIE ALMONTE M.D. Performed By: #### G LULS #### Point of Care testing , Commemt1 Glu2: Cleaned Meter Normal [facility] Comment on above: Result Comment: PERF ORMED BY: [place] [address] PATHOLOGIST CASTER HELPER SHELBIE ALMONTE M.D. Performed By: #### G LULS #### Point of Care testing , Glucose [Mass/Vol] 117 mg/dL Normal [facility] Comment on above: Result Comment: [place] Glucose Reference Range is dependent on time and content of last meal. Glucose of more than 200 mg/dL in a nonstressed, ambulatory subject supports the diagnosis of Diabetes Mellitus. Performed By: #### G LULS #### Point of Care testing , Glucose [Mass/Vol] 149 mg/dL Normal [facility] Comment on above: Result Comment: [place] Glucose Reference Range is dependent on time and content of last meal. Glucose of more than 200 mg/dL in a nonstressed, ambulatory subject supports the diagnosis of Diabetes Mellitus. PERFORMED BY: [place] [address] PATHOLOGIST CASTER HELPER SHELBIE ALMONTE M.D. Performed By: #### G LULS #### Point of Care testing , Commemt1 Glu2: Cleaned Meter Normal [facility] Comment on above: Result Comment: PERF ORMED BY: [place] [address] PATHOLOGIST CASTER HELPER SHELBIE ALMONTE M.D. Performed By: #### G LULS #### Point of Care testing , Glucose [Mass/Vol] 146 mg/dL Normal [facility] Comment on above: Result Comment: [place] Glucose Reference Range is dependent on time and content of last meal. Glucose of more than 200 mg/dL in a nonstressed, ambulatory subject supports the diagnosis of Diabetes Mellitus. Performed By: #### G LULS #### Point of Care testing , Laboratory - Microbiology an d Antimicrobial susceptibilityOrdered By: Albert Swan on 03-24-2024 SARS-CoV-2 (COVID-19) RNA BENITO+probe Ql (Unsp spec) N/A [facility] Automated basophil %Ordered By: Glendy Calabrese on 03-23-2024 Basophils/100 WBC (Bld) 0.4 % Normal . [facility] Comment on above: Performed By: #### P AB, CMP, CBC #### [address] Automated basophil countOrde red By: Glendy Calabrese on 03-23-2024 Basophils (Bld) [#/Vol] 0.0 10*3/uL Normal 0.0-0.2 [facility] Comment on above: Result Comment: PERF ORMED BY: [place] [address] PATHOLOGIST CASTER HELPER SHELBIE ALMONTE M.D. Performed By: #### P AB, CMP, CBC #### [address] Automated blood monocyte cou ntOrdered By: Glendy Calabrese on 03-23-2024 Monocytes (Bld) [#/Vol] 0.9 10*3/uL High 0.0-0.8 [facility] Comment on above: Performed By: #### P AB, CMP, CBC #### [address] Automated eosinophil %Ordere d By: Glendy Calabrese on 03-23-2024 Eosinophils/100 WBC (Bld) 3.3 % Normal . [facility] Comment on above: Performed By: #### P AB, CMP, CBC #### [address] Automated eosinophil countOr dered By: Glendy Calabrese on 03-23-2024 Eosinophils (Bld) [#/Vol] 0.2 10*3/uL Normal 0.0-0.45 [facility] Comment on above: Performed By: #### P AB, CMP, CBC #### [address] Automated monocyte %Ordered By: Glendy Calabrese on 03-23-2024 Monocytes/100 WBC (Bld) 12.8 % Normal . [facility] Comment on above: Performed By: #### P AB, CMP, CBC #### [address] Automated neutrophil %Ordere d By: Glendy Calabrese on 03-23-2024 Neutrophils/100 WBC (Bld) 63.1 % Normal . [facility] Comment on above: Performed By: #### P AB, CMP, CBC #### [address] Basic Metabolic Panelon 03-04 Creatinine Clr Calc Pharmacy 52.37 Normal [facility] Comment on above: Result Comment: PERF ORMED BY: [place] [address] PATHOLOGIST CASTER HELPER SHELBIE ALMONTE M.D. Performed By: #### P AB, CMP, CBC #### [address] GFR/1.73 sq M.predicted MDRD (S/P/Bld) [Vol rate/Area] 52.800 mL/min/{1.73_m2} Normal [facility] Comment on above: Performed By: #### P AB, CMP, CBC #### [address] Calcium [Mass/volume] in Ser um or PlasmaOrdered By: Glendy Calabrese on 03-23-2024 Calcium [Mass/Vol] 8.9 mg/dL Normal 8.6-10.3 [facility] Comment on above: Performed By: #### P AB, CMP, CBC #### [facility] [address] [place] [address] [place] Carbon dioxide, total [Moles /volume] in Serum or PlasmaOrdered By: Glendy Calabrese on 03-23-2024 CO2 [Moles/Vol] 27.6 mmol/L Normal 21.0-31.0 [facility] Comment on above: Performed By: #### P AB, CMP, CBC #### [place] [address] [place] Chloride [Moles/volume] in S bhavin or PlasmaOrdered By: Glendy Calabrese on 03-23-2024 Chloride [Moles/Vol] 99 mmol/L Normal 98-107 [facility] Comment on above: Performed By: #### P AB, CMP, CBC #### [facility] [address] [place] [address] Complete Blood Count Auto Di ffon 03-23-2024 Mean Corpuscular HGB Conc 33.4 g/dL Normal 32.5-35.6 [facility] Comment on above: Performed By: #### P AB, CMP, CBC #### [facility] [address] NRBC% 0.1 /100{WBC} Normal 0-0.5 [facility] Comment on above: Performed By: #### P AB, CMP, CBC #### [address] Creatinine [Mass/volume] in Serum or PlasmaOrdered By: Glendy Calabrese on 03-23-2024 Creatinine [Mass/Vol] 1.37 mg/dL High 0.70-1.[address] [facility] Comment on above: Performed By: #### P AB, CMP, CBC #### [address] Erythrocyte distribution wid th [Ratio] by Automated countOrdered By: Glendy Calabrese on 03-23-2024 Erythrocyte distribution width (RBC) [Ratio] 13.2 % Normal 12.0-14.8 [facility] Comment on above: Performed By: #### P AB, CMP, CBC #### [facility] [address] [place] [address] Erythrocytes [#/volume] in B lood by Automated countOrdered By: Glendy Calabrese on 03-23-2024 RBC (Bld) [#/Vol] 2.75 10*6/uL Low 3.90-5.60 [facility] Comment on above: Performed By: #### P AB, CMP, CBC #### [address] Glucose Poct Glucometerson 0 03-23-2024 Glucose [Mass/Vol] 163 mg/dL Normal [facility] Comment on above: Result Comment: [place] Glucose Reference Range is dependent on time and content of last meal. Glucose of more than 200 mg/dL in a nonstressed, ambulatory subject supports the diagnosis of Diabetes Mellitus. PERFORMED BY: [place] [address] PATHOLOGIST CASTER HELPER SHELBIE ALMONTE M.D. Performed By: #### P AB, CMP, CBC #### [address] Commemt1 Glu2: Cleaned Meter Normal [facility] Comment on above: Result Comment: PERF ORMED BY: [place] [address] PATHOLOGIST CASTER HELPER SHELBIE ALMONTE M.D. Performed By: #### G LULS #### Point of Care testing , Glucose [Mass/Vol] 158 mg/dL Normal [facility] Comment on above: Result Comment: [place] Glucose Reference Range is dependent on time and content of last meal. Glucose of more than 200 mg/dL in a nonstressed, ambulatory subject supports the diagnosis of Diabetes Mellitus. Performed By: #### G LULS #### Point of Care testing , Commemt1 Glu2: Cleaned Meter Normal [facility] Comment on above: Result Comment: PERF ORMED BY: [place] [address] PATHOLOGIST CASTER HELPER SHELBIE ALMONTE M.D. Performed By: #### G LULS #### Point of Care testing , Glucose [Mass/Vol] 162 mg/dL Normal [facility] Comment on above: Result Comment: [place] Glucose Reference Range is dependent on time and content of last meal. Glucose of more than 200 mg/dL in a nonstressed, ambulatory subject supports the diagnosis of Diabetes Mellitus. Performed By: #### G LULS #### Point of Care testing , Glucose [Mass/Vol] 129 mg/dL Normal [facility] Comment on above: Result Comment: [place] Glucose Reference Range is dependent on time and content of last meal. Glucose of more than 200 mg/dL in a nonstressed, ambulatory subject supports the diagnosis of Diabetes Mellitus. PERFORMED BY: [address] [place] [id number] PATHOLOGIST CASTER HELPER SHELBIE ALMONTE M.D. Performed By: #### G SUPA #### Point of Care testing , Glucose [Mass/Vol] 122 mg/dL Normal [facility] Comment on above: Result Comment: [place] Glucose Reference Range is dependent on time and content of last meal. Glucose of more than 200 mg/dL in a nonstressed, ambulatory subject supports the diagnosis of Diabetes Mellitus. PERFORMED BY: [place] [id number] PATHOLOGIST CASTER HELPER SHELBIE ALMONTE M.D. Performed By: #### G SUPA #### Point of Care testing , Glucose [Mass/volume] in Ser um or PlasmaOrdered By: Glendy Calabrese on 03-23-2024 Glucose [Mass/Vol] 109 mg/dL High 70-100 [facility] Comment on above: ADA recommended refe rence rangeRandom Glucose Reference Range is dependent on time and content of last meal. Glucose of more than 200 mg/dL in a nonstressed, ambulatory subject supports the diagnosis of Diabetes Mellitus. Result Comment: [place] Glucose Reference Range is dependent on time and content of last meal. Glucose of more than 200 mg/dL in a nonstressed, ambulatory subject supports the diagnosis of Diabetes Mellitus. ADA recommended reference range Performed By: #### P AB, CMP, CBC #### [facility] [address] [place] [address] Hematocrit [Volume Fraction] of Blood by Automated countOrdered By: Glendy Calabrese on 03-23-2024 Hematocrit (Bld) [Volume fraction] 28.1 % Low 38.8-50.0 [facility] Comment on above: Performed By: #### P AB, CMP, CBC #### [facility] [address] [place] [address] Hemoglobin [Mass/volume] in BloodOrdered By: Glendy Calabrese on 03-23-2024 Hemoglobin (Bld) [Mass/Vol] 9.4 g/dL Low 13.0-17.0 [facility] Comment on above: Performed By: #### P AB, CMP, CBC #### [address] Leukocytes [#/volume] correc nadine for nucleated erythrocytes in Blood by Automated counOrdered By: Glendy Calabrese on 03-23-2024 WBC corrected for nucl RBC Auto (Bld) [#/Vol] 7.2 10*3/uL 4.1-10.5 [facility] Leukocytes [#/volume] in Blo od by Automated countOrdered By: Glendy Calabrese on 03-23-2024 WBC (Bld) [#/Vol] 7.2 10*3/uL Normal 4.1-10.5 [facility] Comment on above: Performed By: #### P AB, CMP, CBC #### [address] Lymphocytes [#/volume] in Bl ood by Automated countOrdered By: Glendy Calabrese on 03-23-2024 Lymphocytes (Bld) [#/Vol] 1.5 10*3/uL Normal 1.00-4.8 [facility] Comment on above: Performed By: #### P AB, CMP, CBC #### [address] Lymphocytes/100 leukocytes i n Blood by Automated countOrdered By: Glendy Calabrese on 03-23-2024 Lymphocytes/100 WBC (Bld) 20.4 % Normal . [facility] Comment on above: Performed By: #### P AB, CMP, CBC #### [address] MCH [Entitic mass] by Automa nadine countOrdered By: Glendy Calabrese on 03-23-2024 MCH (RBC) [Entitic mass] 34.1 pg Normal 27.5-35.2 [facility] Comment on above: Performed By: #### P AB, CMP, CBC #### [address] MCHC Auto (RBC) [Mass/Vol]Or dered By: Glendy Calabrese on 03-23-2024 MCHC (RBC) [Mass/Vol] 33.4 g/dL 32.5-35.[address] [facility] MCV [Entitic volume] by Auto mated countOrdered By: Glendy Calabrese on 03-23-2024 MCV (RBC) [Entitic vol] 102.1 fL High 83.5-101 [facility] Comment on above: Performed By: #### P AB, CMP, CBC #### [facility] [address] Neutrophils [#/volume] in Bl ood by Automated countOrdered By: Glendy Calabrese on 03-23-2024 Neutrophils (Bld) [#/Vol] 4.6 10*3/uL Normal 1.8-7.7 [facility] Comment on above: Performed By: #### P AB, CMP, CBC #### [address] No Panel InformationOrdered By: Glendy Calabrese on 03-23-2024 Estimated GFR (CKD-EPI) 52.800 mL/Min [facility] Creatinine Clearance (Chem 52.37 [facility] Nucleated erythrocytes [Pres ence] in Blood by Automated countOrdered By: Glendy Calabrese on 03-23-2024 Nucleated RBC Auto Ql (Bld) 0.1 /100{WBC} 0-0.5 [facility] Platelet mean volume [Entiti c volume] in Blood by Automated countOrdered By: Glendy Calabrese on 03-23-2024 Platelet mean volume (Bld) [Entitic vol] 8.0 fL Normal 6.6-10.1 [facility] Comment on above: Performed By: #### P AB, CMP, CBC #### [facility] [address] [place] [address] Platelets [#/volume] in Bloo d by Automated countOrdered By: Glendy Calabrese on 03-23-2024 Platelets (Bld) [#/Vol] 242 10*3/uL Normal 150-450 [facility] Comment on above: Performed By: #### P AB, CMP, CBC #### [place] [address] [place] Potassium [Moles/volume] in Serum or PlasmaOrdered By: Glendy Calabrese on 03-23-2024 Potassium [Moles/Vol] 4.3 mmol/L Normal 3.5-5.[address] [facility] Comment on above: Performed By: #### P AB, CMP, CBC #### [address] Serum or plasma anion gap de terminationOrdered By: Glendy Calabrese on 03-23-2024 Anion gap [Moles/Vol] 11.7 mmol/L Normal 6.0-15.0 [facility] Comment on above: Performed By: #### P AB, CMP, CBC #### [address] Sodium [Moles/volume] in Ser um or PlasmaOrdered By: Glendy Calabrese on 03-23-2024 Sodium [Moles/Vol] 134 mmol/L Low 136-145 [facility] Comment on above: Performed By: #### P AB, CMP, CBC #### [address] Urea nitrogen [Mass/volume] in Serum or PlasmaOrdered By: Glendy Calabrese on 03-23-2024 Urea nitrogen [Mass/Vol] 20 mg/dL Normal 7-25 [facility] Comment on above: Performed By: #### P AB, CMP, CBC #### [address] Glucose Poct Glucometerson 0 03-22-2024 Glucose [Mass/Vol] 210 mg/dL Normal [facility] Comment on above: Result Comment: [facility] Glucose Reference Range is dependent on time and content of last meal. Glucose of more than 200 mg/dL in a nonstressed, ambulatory subject supports the diagnosis of Diabetes Mellitus. PERFORMED BY: [place] [address] PATHOLOGIST CASTER HELPER SHELBIE ALMONTE M.D. Performed By: #### G LULS #### Point of Care testing , Glucose [Mass/Vol] 116 mg/dL Normal [facility] Comment on above: Result Comment: [facility] Glucose Reference Range is dependent on time and content of last meal. Glucose of more than 200 mg/dL in a nonstressed, ambulatory subject supports the diagnosis of Diabetes Mellitus. PERFORMED BY: [address] [place] [address] PATHOLOGIST CASTER HELPER SHELBIE ALMONTE M.D. Performed By: #### G LULS #### Point of Care testing , Glucose [Mass/Vol] 126 mg/dL Normal [facility] Comment on above: Result Comment: [facility] Glucose Reference Range is dependent on time and content of last meal. Glucose of more than 200 mg/dL in a nonstressed, ambulatory subject supports the diagnosis of Diabetes Mellitus. PERFORMED BY: [address] [place] [address] PATHOLOGIST CASTER HELPER SHELBIE ALMONTE M.D. Performed By: #### G LULS #### Point of Care testing , Glucose [Mass/Vol] 125 mg/dL Normal [facility] Comment on above: Result Comment: [facility] Glucose Reference Range is dependent on time and content of last meal. Glucose of more than 200 mg/dL in a nonstressed, ambulatory subject supports the diagnosis of Diabetes Mellitus. PERFORMED BY: [address] [place] [address] PATHOLOGIST CASTER HELPER SHELBIE ALMONTE M.D. Performed By: #### G LULS #### Point of Care testing , Glucose Poct Glucometerson 0 03-21-2024 Glucose [Mass/Vol] 222 mg/dL Normal [facility] Comment on above: Result Comment: [facility] Glucose Reference Range is dependent on time and content of last meal. Glucose of more than 200 mg/dL in a nonstressed, ambulatory subject supports the diagnosis of Diabetes Mellitus. PERFORMED BY: [address] [place] [address] PATHOLOGIST CASTER HELPER SHELBIE ALMONTE M.D. Performed By: #### G LULS #### Point of Care testing , Commemt1 Glu2: Cleaned Meter Normal [facility] Comment on above: Result Comment: PERF ORMED BY: [place] [address] PATHOLOGIST CASTER HELPER SHELBIE ALMONTE M.D. Performed By: #### G LULS #### Point of Care testing , Glucose [Mass/Vol] 117 mg/dL Normal [facility] Comment on above: Result Comment: [place] om Glucose Reference Range is dependent on time and content of last meal. Glucose of more than 200 mg/dL in a nonstressed, ambulatory subject supports the diagnosis of Diabetes Mellitus. Performed By: #### G LULS #### Point of Care testing , Commemt1 Glu2: Cleaned Meter Normal [facility] Comment on above: Result Comment: PERF ORMED BY: [place] [address] PATHOLOGIST CASTER HELPER SHELBIE ALMONTE M.D. Performed By: #### G LULS #### Point of Care testing , Glucose [Mass/Vol] 178 mg/dL Normal [facility] Comment on above: Result Comment: [place] Glucose Reference Range is dependent on time and content of last meal. Glucose of more than 200 mg/dL in a nonstressed, ambulatory subject supports the diagnosis of Diabetes Mellitus. Performed By: #### G LULS #### Point of Care testing , Glucose [Mass/Vol] 112 mg/dL Normal [facility] Comment on above: Result Comment: [place] Glucose Reference Range is dependent on time and content of last meal. Glucose of more than 200 mg/dL in a nonstressed, ambulatory subject supports the diagnosis of Diabetes Mellitus. PERFORMED BY: [place] [address] PATHOLOGIST CASTER HELPER SHELBIE ALMONTE M.D. Performed By: #### P AB, CMP, CBC #### [address] Basic Metabolic Panelon 07- Anion gap [Moles/Vol] Not performed Normal 6.0-15.0 [facility] Comment on above: Performed By: #### P AB, CMP, CBC #### [address] Calcium [Mass/Vol] 8.7 mg/dL Normal 8.6-10.3 [facility] Comment on above: Performed By: #### P AB, CMP, CBC #### [address] Chloride [Moles/Vol] 101 mmol/L Normal 98-107 [facility] Comment on above: Performed By: #### P AB, CMP, CBC #### [address] CO2 [Moles/Vol] 26.8 mmol/L Normal 21.0-31.0 [facility] Comment on above: Performed By: #### P AB, CMP, CBC #### [address] Creatinine [Mass/Vol] 1.50 mg/dL High 0.70-1.30 [facility] Comment on above: Performed By: #### P AB, CMP, CBC #### [place] [address] [place] Creatinine Clr Calc Pharmacy 47.83 Normal [facility] Comment on above: Result Comment: PERF ORMED BY: [place] [address] PATHOLOGIST CASTER HELPER SHELBIE ALMONTE M.D. Performed By: #### P AB, CMP, CBC #### [address] GFR/1.73 sq M.predicted MDRD (S/P/Bld) [Vol rate/Area] 47.358 mL/min/{1.73_m2} Normal [facility] Comment on above: Performed By: #### P AB, CMP, CBC #### [address] Glucose [Mass/Vol] 97 mg/dL Normal 70-100 [facility] Comment on above: Result Comment: [facility] Glucose Reference Range is dependent on time and content of last meal. Glucose of more than 200 mg/dL in a nonstressed, ambulatory subject supports the diagnosis of Diabetes Mellitus. ADA recommended reference range Performed By: #### P AB, CMP, CBC #### [address] Potassium Normal 3.5-5.1 [facility] Comment on above: Result Comment: Spec imen hemolyzed, redraw requested Performed By: #### P AB, CMP, CBC #### [address] Sodium [Moles/Vol] 135 mmol/L Low 136-145 [facility] Comment on above: Performed By: #### P AB, CMP, CBC #### [address] Urea nitrogen [Mass/Vol] 25 mg/dL Normal 7-25 [facility] Comment on above: Performed By: #### P AB, CMP, CBC #### [address] Complete Blood Count Auto Di ffon 03-20-2024 Basophils (Bld) [#/Vol] 0.0 10*3/uL Normal 0.0-0.2 [facility] Comment on above: Result Comment: PERF ORMED BY: [place] [address] PATHOLOGIST CASTER HELPER SHELBIE ALMONTE M.D. Performed By: #### P AB, CMP, CBC #### [place] [address] [place] Basophils/100 WBC (Bld) 0.5 % Normal . T [facility] Comment on above: Performed By: #### P AB, CMP, CBC #### [place] [address] [place] Eosinophils (Bld) [#/Vol] 0.2 10*3/uL Normal 0.0-0.45 [facility] Comment on above: Performed By: #### P AB, CMP, CBC #### [place] [address] [place] Eosinophils/100 WBC (Bld) 2.9 % Normal . [facility] Comment on above: Performed By: #### P AB, CMP, CBC #### [address] Erythrocyte distribution width (RBC) [Ratio] 13.3 % Normal 12.0-14.8 [facility] Comment on above: Performed By: #### P AB, CMP, CBC #### [address] Hematocrit (Bld) [Volume fraction] 27.7 % Low 38.8-50.0 [facility] Comment on above: Performed By: #### P AB, CMP, CBC #### [address] Hemoglobin (Bld) [Mass/Vol] 9.3 g/dL Low 13.0-17.0 [facility] Comment on above: Performed By: #### P AB, CMP, CBC #### [address] Lymphocytes (Bld) [#/Vol] 2.1 10*3/uL Normal 1.00-4.8 [facility] Comment on above: Performed By: #### P AB, CMP, CBC #### [address] Lymphocytes/100 WBC (Bld) 25.9 % Normal . [facility] Comment on above: Performed By: #### P AB, CMP, CBC #### [address] MCH (RBC) [Entitic mass] 35.1 pg Normal 27.5-35.2 [facility] Comment on above: Performed By: #### P AB, CMP, CBC #### [address] MCV (RBC) [Entitic vol] 104.1 fL High 83.5-101 T [facility] Comment on above: Performed By: #### P AB, CMP, CBC #### [address] Mean Corpuscular HGB Conc 33.7 g/dL Normal 32.5-35.6 [facility] Comment on above: Performed By: #### P AB, CMP, CBC #### [address] Monocytes (Bld) [#/Vol] 1.1 10*3/uL High 0.0-0.8 [facility] Comment on above: Performed By: #### P AB, CMP, CBC #### [address] Monocytes/100 WBC (Bld) 13.5 % Normal . [facility] Comment on above: Performed By: #### P AB, CMP, CBC #### [address] Neutrophils (Bld) [#/Vol] 4.7 10*3/uL Normal 1.8-7.7 [facility] Comment on above: Performed By: #### P AB, CMP, CBC #### [address] Neutrophils/100 WBC (Bld) 57.2 % Normal . [facility] Comment on above: Performed By: #### P AB, CMP, CBC #### [address] NRBC% 0.1 /100{WBC} Normal 0-0.5 [facility] Comment on above: Performed By: #### P AB, CMP, CBC #### [address] Platelet mean volume (Bld) [Entitic vol] 8.5 fL Normal 6.6-10.1 [facility] Comment on above: Performed By: #### P AB, CMP, CBC #### [address] Platelets (Bld) [#/Vol] 244 10*3/uL Normal 150-450 [facility] Comment on above: Performed By: #### P AB, CMP, CBC #### [address] RBC (Bld) [#/Vol] 2.66 10*6/uL Low 3.90-5.60 [facility] Comment on above: Performed By: #### P AB, CMP, CBC #### [address] WBC (Bld) [#/Vol] 8.1 10*3/uL Normal 4.1-10.5 [facility] Comment on above: Performed By: #### P AB, CMP, CBC #### [address] Glucose Poct Glucometerson 0 03-20-2024 Commemt1 Glu2: Cleaned Meter Normal [facility] Comment on above: Performed By: #### G LULS #### Point of Care testing , Commemt2 WILL NOTIFY DR/RN Normal [facility] Comment on above: Result Comment: PERF ORMED BY: [place] [address] PATHOLOGIST CASTER HELPER SHELBIE ALMONTE M.D. Performed By: #### G LULS #### Point of Care testing , Glucose [Mass/Vol] 159 mg/dL Normal [facility] Comment on above: Result Comment: [facility] Glucose Reference Range is dependent on time and content of last meal. Glucose of more than 200 mg/dL in a nonstressed, ambulatory subject supports the diagnosis of Diabetes Mellitus. Performed By: #### G LULS #### Point of Care testing , Glucose [Mass/Vol] 152 mg/dL Normal [facility] Comment on above: Result Comment: [place] Glucose Reference Range is dependent on time and content of last meal. Glucose of more than 200 mg/dL in a nonstressed, ambulatory subject supports the diagnosis of Diabetes Mellitus. PERFORMED BY: [place] [address] PATHOLOGIST CASTER HELPER SHELBIE ALMONTE M.D. Performed By: #### P AB, CMP, CBC #### [address] Glucose [Mass/Vol] 124 mg/dL Normal [facility] Comment on above: Result Comment: [facility] Glucose Reference Range is dependent on time and content of last meal. Glucose of more than 200 mg/dL in a nonstressed, ambulatory subject supports the diagnosis of Diabetes Mellitus. PERFORMED BY: [place] [address] PATHOLOGIST CASTER HELPER SHELBIE ALMONTE M.D. Performed By: #### G LULS #### Point of Care testing , Glucose [Mass/Vol] 118 mg/dL Normal [facility] Comment on above: Result Comment: [facility] Glucose Reference Range is dependent on time and content of last meal. Glucose of more than 200 mg/dL in a nonstressed, ambulatory subject supports the diagnosis of Diabetes Mellitus. PERFORMED BY: [place] [address] PATHOLOGIST CASTER HELPER SHELBIE ALMONTE M.D. Performed By: #### G LULS #### Point of Care testing , No Panel InformationOrdered By: Albert Swan on 03-20-2024 Bedside Glucose #[address]/rn [facility] Redraw Potassiumon 4 Potassium [Moles/Vol] 4.7 mmol/L Normal 3.5-5.1 [facility] Comment on above: Order Comment: 1ST S pecimen hemolyzed, redraw requested Result Comment: PERF ORMED BY: [place] [address] PATHOLOGIST CASTER HELPER SHELBIE ALMONTE M.D. Performed By: #### P AB, CMP, CBC #### [facility] [address] [place], [place] [id number] [facility] Basic Metabolic Panelon 03-03 Anion gap [Moles/Vol] 11.0 mmol/L Normal 6.0-15.0 [facility] Comment on above: Performed By: #### C BC, BMP #### [facility] [address] [place], [place] [id number] [facility] Calcium [Mass/Vol] 8.8 mg/dL Normal 8.6-10.3 [facility] Comment on above: Performed By: #### C BC, BMP #### [address] Chloride [Moles/Vol] 101 mmol/L Normal 98-107 [facility] Comment on above: Performed By: #### C BC, BMP #### [address] CO2 [Moles/Vol] 28.4 mmol/L Normal 21.0-31.0 [facility] Comment on above: Performed By: #### C BC, BMP #### [address] Creatinine [Mass/Vol] 1.48 mg/dL High 0.70-1.30 [facility] Comment on above: Performed By: #### C BC, BMP #### [address] Creatinine Clr Calc Pharmacy 48.48 Normal [facility] Comment on above: Result Comment: PERF ORMED BY: [place] [address] PATHOLOGIST CASTER HELPER SHEBLIE ALMONTE M.D. Performed By: #### C BC, BMP #### [address] GFR/1.73 sq M.predicted MDRD (S/P/Bld) [Vol rate/Area] 48.126 mL/min/{1.73_m2} Normal [facility] Comment on above: Performed By: #### C BC, BMP #### [address] Glucose [Mass/Vol] 108 mg/dL High 70-100 [facility] Comment on above: Result Comment: [place] Glucose Reference Range is dependent on time and content of last meal. Glucose of more than 200 mg/dL in a nonstressed, ambulatory subject supports the diagnosis of Diabetes Mellitus. ADA recommended reference range Performed By: #### C BC, BMP #### [address] Potassium [Moles/Vol] 4.4 mmol/L Normal 3.5-5.1 [facility] Comment on above: Performed By: #### C BC, BMP #### [address] Sodium [Moles/Vol] 136 mmol/L Normal 136-145 [facility] Comment on above: Performed By: #### C BC, BMP #### [address] Urea nitrogen [Mass/Vol] 24 mg/dL Normal 7-25 [facility] Comment on above: Performed By: #### C BC, BMP #### [address] Complete Blood Count Auto Di ffon 03-19-2024 Basophils (Bld) [#/Vol] 0.0 10*3/uL Normal 0.0-0.2 [facility] Comment on above: Result Comment: PERF ORMED BY: [place] [address] PATHOLOGIST CASTER HELPER SHELBIE ALMONTE M.D. Performed By: #### P AB, CMP, CBC #### [address] Basophils/100 WBC (Bld) 0.4 % Normal . [facility] Comment on above: Performed By: #### P AB, CMP, CBC #### [address] Eosinophils (Bld) [#/Vol] 0.1 10*3/uL Normal 0.0-0.45 [facility] Comment on above: Performed By: #### P AB, CMP, CBC #### [address] Eosinophils/100 WBC (Bld) 1.9 % Normal . [facility] Comment on above: Performed By: #### P AB, CMP, CBC #### [address] Erythrocyte distribution width (RBC) [Ratio] 13.2 % Normal 12.0-14.8 [facility] Comment on above: Performed By: #### P AB, CMP, CBC #### [address] Hematocrit (Bld) [Volume fraction] 28.2 % Low 38.8-50.0 [facility] Comment on above: Performed By: #### P AB, CMP, CBC #### [address] Hemoglobin (Bld) [Mass/Vol] 9.5 g/dL Low 13.0-17.0 [facility] Comment on above: Performed By: #### P AB, CMP, CBC #### [address] Lymphocytes (Bld) [#/Vol] 1.3 10*3/uL Normal 1.00-4.8 [facility] Comment on above: Performed By: #### P AB, CMP, CBC #### [address] Lymphocytes/100 WBC (Bld) 17.6 % Normal . [facility] Comment on above: Performed By: #### P AB, CMP, CBC #### [address] MCH (RBC) [Entitic mass] 34.8 pg Normal 27.5-35.2 [facility] Comment on above: Performed By: #### P AB, CMP, CBC #### [address] MCV (RBC) [Entitic vol] 103.1 fL High 83.5-101 T [facility] Comment on above: Performed By: #### P AB, CMP, CBC #### [address] Mean Corpuscular HGB Conc 33.8 g/dL Normal 32.5-35.6 [facility] Comment on above: Performed By: #### P AB, CMP, CBC #### [address] Monocytes (Bld) [#/Vol] 1.0 10*3/uL High 0.0-0.8 [facility] Comment on above: Performed By: #### P AB, CMP, CBC #### [facility] [address] [place] [address] [place] Monocytes/100 WBC (Bld) 12.8 % Normal . T [facility] Comment on above: Performed By: #### P AB, CMP, CBC #### [facility] [address] [place] [address] [place] Neutrophils (Bld) [#/Vol] 5.1 10*3/uL Normal 1.8-7.7 [facility] Comment on above: Performed By: #### P AB, CMP, CBC #### [facility] [address] Neutrophils/100 WBC (Bld) 67.3 % Normal . [facility] Comment on above: Performed By: #### P AB, CMP, CBC #### [facility] [address] NRBC% 0.0 /100{WBC} Normal 0-0.5 [facility] Comment on above: Performed By: #### P AB, CMP, CBC #### [facility] [address] Platelet mean volume (Bld) [Entitic vol] 8.6 fL Normal 6.6-10.1 [facility] Comment on above: Performed By: #### P AB, CMP, CBC #### [facility] [address] [place] [address] [place] Platelets (Bld) [#/Vol] 201 10*3/uL Normal 150-450 [facility] Comment on above: Performed By: #### P AB, CMP, CBC #### [facility] [address] [place] [address] [place] RBC (Bld) [#/Vol] 2.73 10*6/uL Low 3.90-5.60 [facility] Comment on above: Performed By: #### P AB, CMP, CBC #### [facility] [address] [place] [address] [place] WBC (Bld) [#/Vol] 7.7 10*3/uL Normal 4.1-10.5 [facility] Comment on above: Performed By: #### P AB, CMP, CBC #### [address] Glucose Poct Glucometerson 0 03-19-2024 Glucose [Mass/Vol] 231 mg/dL Normal [facility] Comment on above: Result Comment: [place] Glucose Reference Range is dependent on time and content of last meal. Glucose of more than 200 mg/dL in a nonstressed, ambulatory subject supports the diagnosis of Diabetes Mellitus. PERFORMED BY: [place] [address] PATHOLOGIST CASTER HELPER SHELBIE ALMONTE M.D. Performed By: #### G LULS #### Point of Care testing , Glucose [Mass/Vol] 123 mg/dL Normal [facility] Comment on above: Result Comment: [place] Glucose Reference Range is dependent on time and content of last meal. Glucose of more than 200 mg/dL in a nonstressed, ambulatory subject supports the diagnosis of Diabetes Mellitus. PERFORMED BY: [place] [address] PATHOLOGIST CASTER HELPER SHELBIE ALMONTE M.D. Performed By: #### G LULS #### Point of Care testing , Glucose [Mass/Vol] 139 mg/dL Normal [facility] Comment on above: Result Comment: [place] Glucose Reference Range is dependent on time and content of last meal. Glucose of more than 200 mg/dL in a nonstressed, ambulatory subject supports the diagnosis of Diabetes Mellitus. PERFORMED BY: [place] [address] PATHOLOGIST CASTER HELPER HSELBIE ALMONTE M.D. Performed By: #### G LULS #### Point of Care testing , Glucose [Mass/Vol] 116 mg/dL Normal [facility] Comment on above: Result Comment: [place] Glucose Reference Range is dependent on time and content of last meal. Glucose of more than 200 mg/dL in a nonstressed, ambulatory subject supports the diagnosis of Diabetes Mellitus. PERFORMED BY: [place] [address] PATHOLOGIST CASTER HELPER SHELBIE ALMONTE M.D. Performed By: #### G LULS #### Point of Care testing , Bacteria [Presence] in Urine by AutomatedOrdered By: Albert Swan on 03-18-2024 Bacteria Auto Ql (U) 4+ [HPF] High None Seen [facility] Bilirubin Test strip Ql (U)O rdered By: Albert Saundersey on 03-18-2024 Bilirubin Ql (U) Negative Negative [facility] Color of Urine by AutoOrdere d By: Albert Saundersey on 03-18-2024 Color (U) Yellow Normal Yellow [facility] Comment on above: Order Comment: Name Collection Type:: Clean-Voided Midstream Performed By: #### P AB, CMP, CBC #### [facility] [address] [place] [address] [place] Dipstick and Microscopicon 0 03-18-2024 Bacteria,Urine 4+ High None Seen [facility] Comment on above: Order Comment: Name Collection Type:: Clean-Voided Midstream Performed By: #### P AB, CMP, CBC #### [facility] [address] [place] [address] [place] Bilirubin,Urine Negative Normal Negative [facility] Comment on above: Order Comment: Name Collection Type:: Clean-Voided Midstream Performed By: #### P AB, CMP, CBC #### [facility] [address] [place] [id number] [place] Glucose Ql (U) Normal Normal Normal [facility] Comment on above: Order Comment: Name Collection Type:: Clean-Voided Midstream Performed By: #### P AB, CMP, CBC #### [facility] [address] [place] [id number] [place] Hyaline Casts,Urine 9-19 High 0-8 [facility] Comment on above: Order Comment: Name Collection Type:: Clean-Voided Midstream Result Comment: PERF ORMED BY: [place] [address] PATHOLOGIST CASTER HELPER SHELBIE ALMONTE M.D. Performed By: #### P AB, CMP, CBC #### [facility] [address] [place] [address] [place] Nitrite,Urine Negative Normal Negative [facility] Comment on above: Order Comment: Name Collection Type:: Clean-Voided Midstream Performed By: #### P AB, CMP, CBC #### [address] Occult Blood,Urine 1+ High Negative [facility] Comment on above: Order Comment: Name Collection Type:: Clean-Voided Midstream Result Comment: PERF ORMED BY: [place] [address] PATHOLOGIST CASTER HELPER SHELBIE ALMONTE M.D. Performed By: #### P AB, CMP, CBC #### [address] RBC,Urine 5-9 High 0-4 [facility] Comment on above: Order Comment: Name Collection Type:: Clean-Voided Midstream Performed By: #### P AB, CMP, CBC #### [address] Specificy [place],Urine 1.018 Normal 1.00 1-1.03 0 [facility] Comment on above: Order Comment: Name Collection Type:: Clean-Voided Midstream Performed By: #### P AB, CMP, CBC #### [place] [address] [place] Squamous Epithelial Cell,Urine 1-2 Normal 0-2 [facility] Comment on above: Order Comment: Name Collection Type:: Clean-Voided Midstream Performed By: #### P AB, CMP, CBC #### [place] [address] [place] Triple Phosphate Crystal,Urine Rare Normal [facility] Comment on above: Order Comment: Name Collection Type:: Clean-Voided Midstream Performed By: #### P AB, CMP, CBC #### [address] Urobilinogen,Urine Normal Normal Normal [facility] Comment on above: Order Comment: Name Collection Type:: Clean-Voided Midstream Performed By: #### P AB, CMP, CBC #### [facility] [address] WBC CLUMP, Urine Many High None Seen [facility] Comment on above: Order Comment: Name Collection Type:: Clean-Voided Midstream Performed By: #### P AB, CMP, CBC #### [facility] [address] WBC,Urine Innumerable High 0-4 [facility] Comment on above: Order Comment: Name Collection Type:: Clean-Voided Midstream Performed By: #### P AB, CMP, CBC #### [facility] [address] Epithelial cells.squamous [# /area] in Urine sediment by Automated countOrdered By: Albert Swan on 03-18-2024 Epithelial cells.squamous Auto (Urine sed) [#/Area] 1-2 [HPF] 0-2 [facility] Erythrocytes [#/area] in Uri ne sediment by Automated countOrdered By: Albert Swan on 03-18-2024 RBC Auto (Urine sed) [#/Area] 5-9 [HPF] High 0-4 [facility] Glucose Poct Glucometerson 0 03-18-2024 Commemt1 Glu2: Cleaned Meter Normal [facility] Comment on above: Result Comment: PERF ORMED BY: [place] [address] PATHOLOGIST CASTER HELPER SHELBIE ALMONTE M.D. Performed By: #### G LULS #### Point of Care testing , Glucose [Mass/Vol] 199 mg/dL Normal [facility] Comment on above: Result Comment: [place] Glucose Reference Range is dependent on time and content of last meal. Glucose of more than 200 mg/dL in a nonstressed, ambulatory subject supports the diagnosis of Diabetes Mellitus. Performed By: #### G LULS #### Point of Care testing , Glucose [Mass/Vol] 164 mg/dL Normal [facility] Comment on above: Result Comment: [place] Glucose Reference Range is dependent on time and content of last meal. Glucose of more than 200 mg/dL in a nonstressed, ambulatory subject supports the diagnosis of Diabetes Mellitus. PERFORMED BY: [place] [address] PATHOLOGIST CASTER HELPER SHELBIE ALMONTE M.D. Performed By: #### G LULS #### Point of Care testing , Glucose [Mass/Vol] 171 mg/dL Normal [facility] Comment on above: Result Comment: [facility] Glucose Reference Range is dependent on time and content of last meal. Glucose of more than 200 mg/dL in a nonstressed, ambulatory subject supports the diagnosis of Diabetes Mellitus. PERFORMED BY: [place] [address] PATHOLOGIST CASTER HELPER SHELBIE ALMONTE M.D. Performed By: #### P AB, CMP, CBC #### [address] Glucose [Mass/Vol] 142 mg/dL Normal [facility] Comment on above: Result Comment: [facility] Glucose Reference Range is dependent on time and content of last meal. Glucose of more than 200 mg/dL in a nonstressed, ambulatory subject supports the diagnosis of Diabetes Mellitus. PERFORMED BY: [place] [address] PATHOLOGIST CASTER HELPER SHELBIE ALMONTE M.D. Performed By: #### P AB, CMP, CBC #### [address] Glucose [Mass/volume] in Uri ne by Test stripOrdered By: Albert Swan on 03-18-2024 Glucose Test strip (U) [Mass/Vol] Normal mg/dL Normal [facility] Hemoglobin Test strip Ql (U) Ordered By: Albert Swan on 03-18-2024 Hemoglobin Ql (U) 1+ High Negative [facility] Hyaline casts [#/area] in Ur ine sediment by Automated countOrdered By: Albert Swan on 03-18-2024 Hyaline casts Auto (Urine sed) [#/Area] 9-19 [LPF] High 0-8 [facility] Ketones [Presence] in Urine by Test stripOrdered By: Albert Swan on 03-18-2024 Ketones Ql (U) Negative Normal Negative [facility] Comment on above: Order Comment: Name Collection Type:: Clean-Voided Midstream Performed By: #### P AB, CMP, CBC #### [facility] [address] Leukocyte clumps [Presence] in Urine by AutomatedOrdered By: Albert Swan on 03-18-2024 Leukocyte clumps Auto Ql (U) Many [LPF] High None Seen [facility] Leukocyte esterase [Presence ] in Urine by Test stripOrdered By: Albert Swan on 03-18-2024 Leukocyte esterase Test strip Ql (U) 4+ High Negative [facility] Comment on above: Order Comment: Name Collection Type:: Clean-Voided Midstream Performed By: #### P AB, CMP, CBC #### [facility] [address] [place] [address] [place] Leukocytes [#/area] in Urine sediment by Automated countOrdered By: Albert Swan on 03-18-2024 WBC Auto (Urine sed) [#/Area] Innumerable [HPF] High 0-4 [facility] Nitrite Test strip Ql (U)Ord ered By: Albert Swan on 03-18-2024 Nitrite Ql (U) Negative Negative [facility] Protein [Mass/volume] in Uri ne by Test stripOrdered By: Albert Swna on 03-18-2024 Protein (U) [Mass/Vol] 30 mg/dL High Negative [facility] Comment on above: Order Comment: Name Collection Type:: Clean-Voided Midstream Performed By: #### P AB, CMP, CBC #### [facility] [address] [place] [address] [place] Specific gravity Test strip (U) [Rel density]Ordered By: Albert Swan on 03-18-2024 Specific gravity (U) [Rel density] 1.018 1.001-1.03 0 [facility] Triple phosphate crystals [P resence] in Urine sediment by Computer assisted methodOrdered By: Albert Swan on 03-18-2024 Triple phosphate crystals [Presence] in Urine sediment by Computer assisted method Rare [HPF] [facility] Urine Cultureon 03-18-2024 Bacteria identified Cx Nom (U) ORGANISM: Proteus mirabilis (O:PROMIR) [place] Count >100,000 Aerobic BENJAMIN Charge ([id number]) SUSCEPTIBILITY ORGANISM: O:PROMIR ANTIBIOTIC INTERPRETATION BENJAMIN Amikacin S <16 Amoxacillin/K Clavulanate S <8 Ampicillin S <8 Ampicillin/Sulbactam S <4 Aztreonam S <4 Cefazolin S <2 Cefepime S <2 Ceftazidime S <1 Ceftazidime/Avibactam S <4 Ceftolozane/Tazobactam S <2 Ceftriaxone S <1 Cefuroxime S <4 Ciprofloxacin S <0.25 Ertapenem S <0.5 Gentamicin S <2 Levofloxacin S <0.5 Meropenem S <1 Meropenem/Vaborbactam S <2 Piperacillin/Tazobactam S <8 Tobramycin S <2 Trimethoprim/Sulfamethoxaz ole S <0.5 S = SUSCEPTIBLE I = INTERMEDIATE R = RESISTANT BLANK = DATA NOT AVAILABLE, OR DRUG NOT ADVISABLE OR TESTED R* = RESISTANCE DUE TO EXTENDED SPECTRUM BETA-LACTAMASES ESBL = EXTENDED SPECTRUM BETA-LACTAMASE TFG = THYMIDINE-DEPENDENT STRAIN PAWEL = BETA-LACTAMASE POSITIVE IB = INDUCIBLE BETA-LACTAMASE. APPEARS IN PLACE OF 'S' WITH SPECIES KNOWN TO POSSESS INDUCIBLE BETA-LACTAMASES. POTENTIALLY THEY MAY BECOME RESISTANT TO ALL B-LACTAM DRUGS. PERFORMED BY: [place] [address] PATHOLOGIST CASTER HELPER SHELBIE ALMONTE M.D. Normal [facility] Comment on above: Performed By: #### P AB, CMP, CBC #### [address] Urine appearanceOrdered By: Albert Swan on 03-18-2024 Appearance (U) Cloudy Critically abnormal Clear [facility] Comment on above: Order Comment: Name Collection Type:: Clean-Voided Midstream Performed By: #### P AB, CMP, CBC #### [facility] [address] Urine culture routineOrdered By: Albert Swan on 03-18-2024 Bacteria identified Cx Nom (U) Proteus mirabilis Abnormal [facility] Urobilinogen Test strip (U) [Mass/Vol]Ordered By: Albert Swan on 03-18-2024 Urobilinogen (U) [Mass/Vol] Normal mg/dL Normal [facility] pH of Urine by Test stripOrd ered By: Albert Swan on 03-18-2024 pH (U) 7.5 [pH] Normal 5.0-9.0 [facility] Comment on above: Order Comment: Name Collection Type:: Clean-Voided Midstream Performed By: #### P AB, CMP, CBC #### [address] Alanine aminotransferase [En zymatic activity/volume] in Serum or PlasmaOrdered By: Albert Swan on 03-17-2024 ALT [Catalytic activity/Vol] 35 U/L Normal 7-52 [facility] Comment on above: Performed By: #### P AB, CMP, CBC #### [facility] [address] [place] [address] [place] Albumin [Mass/volume] in Ser um or Plasma by Bromocresol green (BCG) dye binding methoOrdered By: Albert Swan on 03-17-2024 Albumin BCG dye [Mass/Vol] 3.3 g/dL Low 3.5-5.7 [facility] Alkaline phosphatase [Enzyma tic activity/volume] in Serum or PlasmaOrdered By: Albert Swan on 03-17-2024 ALP [Catalytic activity/Vol] 76 U/L Normal 34-104 [facility] Comment on above: Performed By: #### P AB, CMP, CBC #### [facility] [address] [place] [address] [place] Aspartate aminotransferase [ Enzymatic activity/volume] in Serum or PlasmaOrdered By: Albert Swan on 03-17-2024 AST [Catalytic activity/Vol] 70 U/L High 13-39 [facility] Comment on above: Performed By: #### P AB, CMP, CBC #### [facility] [address] Bilirubin.total [Mass/volume ] in Serum or PlasmaOrdered By: Albert Swan on 03-17-2024 Bilirubin [Mass/Vol] 0.5 mg/dL Normal 0.3-1.0 [facility] Comment on above: Performed By: #### P AB, CMP, CBC #### [facility] [address] COVID-19 FRon 03-17-2024 SARS-CoV-2 (COVID-19) RNA BENITO+probe Ql (Unsp spec) Positive Critically abnormal Negative [facility] Comment on above: Order Comment: Healt hcare Worker?: N Result Comment: Positive results will only be called to Providers for Inpatients Results called at 1306 on 03/17/24 Testing for SARS-CoV-2 by RT-PCR This test was developed and its performance characteristics determined by [employer] and validated at the [facility]. This test has not been FDA cleared or approved. This test has been authorized by FDA under an Emergency Use Authorization (EUA). This test has been validated in accordance with the FDA's Guidance Document (Policy for Diagnostics Testing in Laboratories Certified to Perform High Complexity Testing under CLIA prior to Emergency Use Authorization for Coronavirus Disease-2019 during the Public Health Emergency) issued on December 04, 2019. This test is only authorized for the duration of time the declaration that circumstances exist justifying the authorization of the emergency use of in vitro diagnostic tests for detection of SARS-CoV-2 virus and/or diagnosis of COVID-19 infection under section 564(b)(1) of the Act, 21 U.S.C. 360bbb-3(b)(1), unless the authorization is terminated or revoked sooner. PERFORMED BY: [place] [address] PATHOLOGIST CASTER HELPER SHELBIE ALMONTE M.D. Performed By: #### G LULS #### Point of Care testing , Complete Blood Count Auto Di ffon 03-17-2024 Basophils (Bld) [#/Vol] 0.0 10*3/uL Normal 0.0-0.2 [facility] Comment on above: Result Comment: PERF ORMED BY: [place] [address] PATHOLOGIST CASTER HELPER SHELBIE ALMONTE M.D. Performed By: #### P AB, CMP, CBC #### [address] Basophils/100 WBC (Bld) 0.3 % Normal . [facility] Comment on above: Performed By: #### P AB, CMP, CBC #### [place] [address] [place] Eosinophils (Bld) [#/Vol] 0.2 10*3/uL Normal 0.0-0.45 [facility] Comment on above: Performed By: #### P AB, CMP, CBC #### [address] Eosinophils/100 WBC (Bld) 3.3 % Normal . [facility] Comment on above: Performed By: #### P AB, CMP, CBC #### [address] Erythrocyte distribution width (RBC) [Ratio] 13.0 % Normal 12.0-14.8 [facility] Comment on above: Performed By: #### P AB, CMP, CBC #### [address] Hematocrit (Bld) [Volume fraction] 28.5 % Low 38.8-50.0 [facility] Comment on above: Performed By: #### P AB, CMP, CBC #### [address] Hemoglobin (Bld) [Mass/Vol] 9.8 g/dL Low 13.0-17.0 [facility] Comment on above: Performed By: #### P AB, CMP, CBC #### [address] Lymphocytes (Bld) [#/Vol] 1.8 10*3/uL Normal 1.00-4.8 [facility] Comment on above: Performed By: #### P AB, CMP, CBC #### [address] Lymphocytes/100 WBC (Bld) 24.9 % Normal . [facility] Comment on above: Performed By: #### P AB, CMP, CBC #### [address] MCH (RBC) [Entitic mass] 35.6 pg High 27.5-35.2 [facility] Comment on above: Performed By: #### P AB, CMP, CBC #### [address] MCV (RBC) [Entitic vol] 104.1 fL High 83.5-101 [facility] Comment on above: Performed By: #### P AB, CMP, CBC #### [address] Mean Corpuscular HGB Conc 34.2 g/dL Normal 32.5-35.6 [facility] Comment on above: Performed By: #### P AB, CMP, CBC #### [address] Monocytes (Bld) [#/Vol] 0.9 10*3/uL High 0.0-0.8 [facility] Comment on above: Performed By: #### P AB, CMP, CBC #### [place] [address] [place] Monocytes/100 WBC (Bld) 13.0 % Normal . [facility] Comment on above: Performed By: #### P AB, CMP, CBC #### [address] Neutrophils (Bld) [#/Vol] 4.1 10*3/uL Normal 1.8-7.7 [facility] Comment on above: Performed By: #### P AB, CMP, CBC #### [address] Neutrophils/100 WBC (Bld) 58.5 % Normal . [facility] Comment on above: Performed By: #### P AB, CMP, CBC #### [address] NRBC% 0.1 /100{WBC} Normal 0-0.5 [facility] Comment on above: Performed By: #### P AB, CMP, CBC #### [address] Platelet mean volume (Bld) [Entitic vol] 8.5 fL Normal 6.6-10.1 [facility] Comment on above: Performed By: #### P AB, CMP, CBC #### [address] Platelets (Bld) [#/Vol] 189 10*3/uL Normal 150-450 [facility] Comment on above: Performed By: #### P AB, CMP, CBC #### [address] RBC (Bld) [#/Vol] 2.74 10*6/uL Low 3.90-5.60 [facility] Comment on above: Performed By: #### P AB, CMP, CBC #### [address] WBC (Bld) [#/Vol] 7.0 10*3/uL Normal 4.1-10.5 [facility] Comment on above: Performed By: #### P AB, CMP, CBC #### [address] Comprehensive Metabolic Pane lora 03-17-2024 Albumin [Mass/Vol] 3.3 g/dL Low 3.5-5.7 [facility] Comment on above: Performed By: #### P AB, CMP, CBC #### [address] Anion gap [Moles/Vol] 10.4 mmol/L Normal 6.0-15.0 [facility] Comment on above: Performed By: #### P AB, CMP, CBC #### [facility] [address] [place] [address] [place] Calcium [Mass/Vol] 8.8 mg/dL Normal 8.6-10.3 [facility] Comment on above: Performed By: #### P AB, CMP, CBC #### [facility] [address] [place] [address] [place] Chloride [Moles/Vol] 100 mmol/L Normal 98-107 [facility] Comment on above: Performed By: #### P AB, CMP, CBC #### [place] [address] [place] CO2 [Moles/Vol] 29.9 mmol/L Normal 21.0-31.0 [facility] Comment on above: Performed By: #### P AB, CMP, CBC #### [place] [address] [place] Creatinine [Mass/Vol] 1.20 mg/dL Normal 0.70-1.30 [facility] Comment on above: Performed By: #### P AB, CMP, CBC #### [place] [address] [place] Creatinine Clr Calc Pharmacy 59.79 Normal [facility] Comment on above: Performed By: #### P AB, CMP, CBC #### [place] [address] [place] GFR/1.73 sq M.predicted MDRD (S/P/Bld) [Vol rate/Area] mL/min/{1.73_m2} Normal [facility] Comment on above: Performed By: #### P AB, CMP, CBC #### [place] [address] [place] Glucose [Mass/Vol] 122 mg/dL High 70-100 [facility] Comment on above: Result Comment: [place] Glucose Reference Range is dependent on time and content of last meal. Glucose of more than 200 mg/dL in a nonstressed, ambulatory subject supports the diagnosis of Diabetes Mellitus. ADA recommended reference range Performed By: #### P AB, CMP, CBC #### [place] [address] [place] Potassium [Moles/Vol] 4.3 mmol/L Normal 3.5-5.1 [facility] Comment on above: Performed By: #### P AB, CMP, CBC #### [address] Sodium [Moles/Vol] 136 mmol/L Normal 136-145 [facility] Comment on above: Performed By: #### P AB, CMP, CBC #### [facility] [address] Urea nitrogen [Mass/Vol] 18 mg/dL Normal 7-25 [facility] Comment on above: Performed By: #### P AB, CMP, CBC #### [address] Glucose Poct Glucometerson 0 03-17-2024 Glucose [Mass/Vol] 178 mg/dL Normal [facility] Comment on above: Result Comment: [facility] Glucose Reference Range is dependent on time and content of last meal. Glucose of more than 200 mg/dL in a nonstressed, ambulatory subject supports the diagnosis of Diabetes Mellitus. PERFORMED BY: [place] [address] PATHOLOGIST CASTER HELPER SHELBIE ALMONTE M.D. Performed By: #### G LULS #### Point of Care testing , Glucose [Mass/Vol] 126 mg/dL Normal [facility] Comment on above: Result Comment: [facility] Glucose Reference Range is dependent on time and content of last meal. Glucose of more than 200 mg/dL in a nonstressed, ambulatory subject supports the diagnosis of Diabetes Mellitus. PERFORMED BY: [place] [address] PATHOLOGIST CASTER HELPER SHELBIE ALMONTE M.D. Performed By: #### G LULS #### Point of Care testing , Glucose [Mass/Vol] 166 mg/dL Normal [facility] Comment on above: Result Comment: [place] Glucose Reference Range is dependent on time and content of last meal. Glucose of more than 200 mg/dL in a nonstressed, ambulatory subject supports the diagnosis of Diabetes Mellitus. PERFORMED BY: [place] [id number] PATHOLOGIST CASTER HELPER SHELBIE ALMONTE M.D. Performed By: #### G LULS #### Point of Care testing , Glucose [Mass/Vol] 147 mg/dL Normal [facility] Comment on above: Result Comment: [facility] Glucose Reference Range is dependent on time and content of last meal. Glucose of more than 200 mg/dL in a nonstressed, ambulatory subject supports the diagnosis of Diabetes Mellitus. PERFORMED BY: [place] [address] PATHOLOGIST CASTER HELPER SHELBIE ALMONTE M.D. Performed By: #### G SUPA #### Point of Care testing , Prealbumin [Mass/volume] in Serum or PlasmaOrdered By: Albert Swan on 03-17-2024 Prealbumin [Mass/Vol] 17.4 mg/dL Normal 17.0-34.[address] [facility] Comment on above: Result Comment: PERF ORMED BY: [place] [address] PATHOLOGIST CASTER HELPER SHELBIE ALMONTE M.D. Performed By: #### P AB, CMP, CBC #### [address] Protein [Mass/volume] in Ser um or PlasmaOrdered By: Albert Swan on 03-17-2024 Protein [Mass/Vol] 6.3 g/dL Low 6.4-8.9 [facility] Comment on above: Performed By: #### P AB, CMP, CBC #### [facility] [address] [place] [address] Serum globulin measurement b y calculation (mass/volume)Ordered By: Albert Swan on 03-17-2024 Globulin (S) [Mass/Vol] 3.0 g/dL Normal [facility] Comment on above: Performed By: #### P AB, CMP, CBC #### [facility] [address] [place] [address] Serum or plasma albumin/glob ulin mass ratioOrdered By: Albert Swan on 03-17-2024 Albumin/Globulin [Mass ratio] 1.1 {ratio} Normal [facility] Comment on above: Performed By: #### P AB, CMP, CBC #### [address] XR chest 1V portableon 03-17 XR chest 1V portable [facility] [place] [address] [place] [address] XRay Report Signed Patient: Bishnu Love MR#: [id number] : 1945 Acct:[id number] Age/Sex: 78 / M ADM Date: 03/16/24 Loc: Room: [address] [place] [address] Type: ADM IN Attending Dr: Albert Swan MD Copies to: MD Sharon Liang APRN Ordering Provider: Sharon Ruggiero APRN Date of Service: 03/17/24 XR/XR chest 1V portable: COVID, congestion Plain film chest Single view HISTORY: Chest congestion. Low pulse ox. Covid positive COMPARISON: 02/25/24 FINDINGS: SUPPORT DEVICES: None POSTSURGICAL CHANGES: None HEART: Within normal limits PULMONARY OSCAR: Within normal limits MEDIASTINUM: Unremarkable LUNGS AND PLEURA: No acute lung process, pleural effusion or pneumothorax identified. BONY STRUCTURES: Intact ADDITIONAL FINDINGS None XR/XR chest 1V portable IMPRESSION: No acute process. Impression dictated by: Jeff Nguyen M.D.03/17/2024 7:45 PM Dictation Location: [place] [address] Transcribed By: [facility] 03/17/241944 Dictated By: Jeff Nguyen DO 03/17/241943 Signed By: 03/17/241944 Normal [facility] Glucose Poct Glucometerson 0 03-16-2024 Glucose [Mass/Vol] 140 mg/dL Normal [facility] Comment on above: Result Comment: [place] Glucose Reference Range is dependent on time and content of last meal. Glucose of more than 200 mg/dL in a nonstressed, ambulatory subject supports the diagnosis of Diabetes Mellitus. PERFORMED BY: [place] [id number] PATHOLOGIST CASTER HELPER SHELBIE ALMONTE M.D. Performed By: #### G LULS #### Point of Care testing , Glucose [Mass/Vol] 158 mg/dL Normal [facility] Comment on above: Result Comment: [facility] Glucose Reference Range is dependent on time and content of last meal. Glucose of more than 200 mg/dL in a nonstressed, ambulatory subject supports the diagnosis of Diabetes Mellitus. PERFORMED BY: [address] [place] [address] PATHOLOGIST CASTER HELPER SHELBIE ALMONTE M.D. Performed By: #### G LULS #### Point of Care testing , A1C with Estimated Average Shelly rodriguez 02-25-2024 Glucose [Mass/Vol] 120 mg/dL Normal [facility] Comment on above: Result Comment: PERF ORMED BY: [address] [place] [address] PATHOLOGIST CASTER HELPER SHELBIE ALMONTE M.D. Performed By: #### G LULS #### Point of Care testing , Activated partial thrombopla stin time (aPTT) in platelet poor plasma by coagulation aOrdered By: Austin Monte on 02-25-2024 aPTT Coag (PPP) [Time] 31.4 s 25.1-36.5 [facility] Comment on above: A hematocrit value g reater than 55% may lead to inaccurate results in coagulation testing. Patients having hematocrit values >55% require a special collection tube for coagulation studies. Please contact the laboratory at [phone] for redraw instructions. Automated basophil %Ordered By: Austin Monte on 02-25-2024 Basophils/100 WBC (Bld) 0.3 % Normal . [facility] Comment on above: Performed By: #### G LULS #### Point of Care testing , Automated basophil countOrde red By: Austin Monte on 02-25-2024 Basophils (Bld) [#/Vol] 0.0 10*3/uL Normal 0.0-0.2 [facility] Comment on above: Result Comment: PERF ORMED BY: [address] [place] [address] PATHOLOGIST CASTER HELPER SHELBIE ALMONTE M.D. Performed By: #### G LULS #### Point of Care testing , Automated blood monocyte cou ntOrdered By: Austin Digmandieo on 02-25-2024 Monocytes (Bld) [#/Vol] 0.7 10*3/uL Normal 0.0-0.8 [facility] Comment on above: Performed By: #### G LULS #### Point of Care testing , Automated eosinophil %Ordere d By: Austin Diglio on 02-25-2024 Eosinophils/100 WBC (Bld) 2.5 % Normal . [facility] Comment on above: Performed By: #### G LULS #### Point of Care testing , Automated eosinophil countOr dered By: Austin Digmandieo on 02-25-2024 Eosinophils (Bld) [#/Vol] 0.2 10*3/uL Normal 0.0-0.45 [facility] Comment on above: Performed By: #### G LULS #### Point of Care testing , Automated monocyte %Ordered By: Austin Diglio on 02-25-2024 Monocytes/100 WBC (Bld) 10.0 % Normal . [facility] Comment on above: Performed By: #### G LULS #### Point of Care testing , Automated neutrophil %Ordere d By: Austin Diglio on 02-25-2024 Neutrophils/100 WBC (Bld) 58.8 % Normal . [facility] Comment on above: Performed By: #### G LULS #### Point of Care testing , Basic Metabolic Panelon 02-02 GFR/1.73 sq M.predicted MDRD (S/P/Bld) [Vol rate/Area] 51.890 mL/min/{1.73_m2} Normal [facility] Comment on above: Performed By: #### G LULS #### Point of Care testing , Calcium [Mass/volume] in Ser um or PlasmaOrdered By: Austin Diglio on 02-25-2024 Calcium [Mass/Vol] 8.9 mg/dL Normal 8.6-10.3 [facility] Comment on above: Result Comment: PERF ORMED BY: [facility] [address] [place] [address] PATHOLOGIST CASTER HELPER SHELBIE ALMONTE M.D. Performed By: #### G LULS #### Point of Care testing , Carbon dioxide, total [Moles /volume] in Serum or PlasmaOrdered By: Austin Monte on 02-25-2024 CO2 [Moles/Vol] 29.2 mmol/L Normal 21.0-31.0 [facility] Comment on above: Performed By: #### G LULS #### Point of Care testing , Chloride [Moles/volume] in S bhavin or PlasmaOrdered By: Austin Motne on 02-25-2024 Chloride [Moles/Vol] 105 mmol/L Normal 98-107 [facility] Comment on above: Performed By: #### G LULS #### Point of Care testing , Coagulation Profileon 2023 aPTT Coag (Bld) [Time] 31.4 s Normal 25.1-36.5 [facility] Comment on above: Result Comment: A he matocrit value greater than 55% may lead to inaccurate results in coagulation testing. Patients having hematocrit values >55% require a special collection tube for coagulation studies. Please contact the laboratory at [phone] for redraw instructions. PERFORMED BY: [facility] [address] [place] [address] PATHOLOGIST CASTER HELPER SHELBIE ALMONTE M.D. Performed By: #### G LULS #### Point of Care testing , Complete Blood Count Auto Di ffon 02-25-2024 Mean Corpuscular HGB Conc 33.7 g/dL Normal 32.5-35.6 [facility] Comment on above: Performed By: #### G LULS #### Point of Care testing , NRBC% 0.1 /100{WBC} Normal 0-0.5 [facility] Comment on above: Performed By: #### G LULS #### Point of Care testing , Creatinine [Mass/volume] in Serum or PlasmaOrdered By: Austin Monte on 02-25-2024 Creatinine [Mass/Vol] 1.39 mg/dL High 0.70-1.[address] [facility] Comment on above: Performed By: #### G LULS #### Point of Care testing , ECG 12 lead ECGon 02-25-2024 ECG 12 lead ECG [facility] [place] [address] [place] [address] Electrocardiograph Report Signed Patient: Bishnu Love MR#: [id number] : 1945 Acct:[id number] Age/Sex: 78 / M ADM Date: 02/25/24 Loc: XD Room: Type: [facility] Attending Dr: Austin Monte PA-C Ordering Provider: Austin Monte PA-C Date of Service: 02/25/24/ ECG/ECG 12 lead ECG: see order Copies to: Test Reason : Blood Pressure : / mmHG Vent. Rate : 076 BPM Atrial Rate : 076 BPM P-R Int : 226 ms QRS Dur : 100 ms QT Int : 388 ms P-R-T Axes : 050 010 044 degrees QTc Int : 436 ms Sinus rhythm with sinus arrhythmia with 1st degree AV block Otherwise normal ECG When compared with ECG of 01-JAN-2013 11:35, No significant change was found Confirmed by CAROLINA MAGAÑA MD, FACC ([id number]) on 02/26/2024 8:41:47 AM Referred By: Electronically Signed By:CAROLINA MAGAÑA MD [facility] Transcribed By: MUS Signed By Yoshi Magaña MD 02/26/24 0841 Normal [facility] Erythrocyte distribution wid th [Ratio] by Automated countOrdered By: Austin Monte on 02-25-2024 Erythrocyte distribution width (RBC) [Ratio] 13.8 % Normal 12.0-14.8 [facility] Comment on above: Performed By: #### G LULS #### Point of Care testing , Erythrocytes [#/volume] in B lood by Automated countOrdered By: Austin Monte on 02-25-2024 RBC (Bld) [#/Vol] 3.39 10*6/uL Low 3.90-5.60 [facility] Comment on above: Performed By: #### G LULS #### Point of Care testing , Glucose [Mass/volume] in Ser um or PlasmaOrdered By: Austin Monte on 02-25-2024 Glucose [Mass/Vol] 119 mg/dL High 70-100 [facility] Comment on above: ADA recommended refe rence rangeRandom Glucose Reference Range is dependent on time and content of last meal. Glucose of more than 200 mg/dL in a nonstressed, ambulatory subject supports the diagnosis of Diabetes Mellitus. Result Comment: [place] om Glucose Reference Range is dependent on time and content of last meal. Glucose of more than 200 mg/dL in a nonstressed, ambulatory subject supports the diagnosis of Diabetes Mellitus. ADA recommended reference range Performed By: #### G LULS #### Point of Care testing , Glucose mean value [Mass/vol ume] in Blood Estimated from glycated hemoglobinOrdered By: Austin Monte on 02-25-2024 Average glucose Estimated from glycated hemoglobin (Bld) [Mass/Vol] 120 mg/dL [facility] Hematocrit [Volume Fraction] of Blood by Automated countOrdered By: Austin Monte on 02-25-2024 Hematocrit (Bld) [Volume fraction] 35.7 % Low 38.8-50.0 [facility] Comment on above: Performed By: #### G LULS #### Point of Care testing , Hemoglobin A1c percentageOrd ered By: Austin Monte on 02-25-2024 HbA1c (Bld) [Mass fraction] 5.8 % High 4.3-5.6 [facility] Comment on above: Increased risk for d iabetes: 5.7 - 6.4diabetes: >6.4glycemic control for adults with diabetes: <7.0 Result Comment: Incr eased risk for diabetes: 5.7 - 6.4 diabetes: >6.4 glycemic control for adults with diabetes: <7.0 Performed By: #### G LULS #### Point of Care testing , Hemoglobin [Mass/volume] in BloodOrdered By: Austin Monte on 02-25-2024 Hemoglobin (Bld) [Mass/Vol] 12.0 g/dL Low 13.0-17.0 [facility] Comment on above: Performed By: #### G LUHOMERO #### Point of Care testing , INR in Platelet poor plasma by Coagulation assayOrdered By: Austin Monte on 02-25-2024 INR Coag (PPP) [Relative time] 1.0 {INR} Normal [facility] Comment on above: INR Therapeutic Rang e A) Pre- and Peroperative OAT started two weeks before surgery. NOT HIP SURGERY: 1.5 - 2.5 HIP SURGERY: 2 - 3B) Primary and secondary prevention of venous THROMBOSIS: 2 - 3C) Active venous thrombosis, pulmonary embolismand prevention of recurrent venous thrombosis: 2 - 3D) Prevention of arterial thromboembolismincluding patients with mechanical heart valves: 3 - 4.5 Result Comment: INR Therapeutic Range A) Pre- and Peroperative OAT started two weeks before surgery. NOT HIP SURGERY: 1.5 - 2.5 HIP SURGERY: 2 - 3 B) Primary and secondary prevention of venous THROMBOSIS: 2 - 3 C) Active venous thrombosis, pulmonary embolism and prevention of recurrent venous thrombosis: 2 - 3 D) Prevention of arterial thromboembolism including patients with mechanical heart valves: 3 - 4.5 Performed By: #### G LUHOMERO #### Point of Care testing , Leukocytes [#/volume] correc nadine for nucleated erythrocytes in Blood by Automated counOrdered By: Austin Monte on 02-25-2024 WBC corrected for nucl RBC Auto (Bld) [#/Vol] 6.9 10*3/uL 4.1-10.5 [facility] Leukocytes [#/volume] in Blo od by Automated countOrdered By: Austin Monte on 02-25-2024 WBC (Bld) [#/Vol] 6.9 10*3/uL Normal 4.1-10.5 [facility] Comment on above: Performed By: #### G LUHOMERO #### Point of Care testing , Lymphocytes [#/volume] in Bl ood by Automated countOrdered By: Austin Monte on 02-25-2024 Lymphocytes (Bld) [#/Vol] 2.0 10*3/uL Normal 1.00-4.8 [facility] Comment on above: Performed By: #### G LULS #### Point of Care testing , Lymphocytes/100 leukocytes i n Blood by Automated countOrdered By: Austin Monte on 02-25-2024 Lymphocytes/100 WBC (Bld) 28.4 % Normal . [facility] Comment on above: Performed By: #### G LULS #### Point of Care testing , MCH [Entitic mass] by Automa nadine countOrdered By: Austin Monte on 02-25-2024 MCH (RBC) [Entitic mass] 35.5 pg High 27.5-35.2 [facility] Comment on above: Performed By: #### G LULS #### Point of Care testing , MCHC Auto (RBC) [Mass/Vol]Or dered By: Austin Monte on 02-25-2024 MCHC (RBC) [Mass/Vol] 33.7 g/dL 32.5-35.[address] [facility] MCV [Entitic volume] by Auto mated countOrdered By: Austin Monte on 02-25-2024 MCV (RBC) [Entitic vol] 105.4 fL High 83.5-101 [facility] Comment on above: Performed By: #### G LULS #### Point of Care testing , MRSA Cultureon 02-25-2024 MRSA Culture MRSA Culture Results No MRSA Isolated 2 Days PERFORMED BY: [facility] [address] [place] [address] PATHOLOGIST CASTER HELPER SHELBIE ALMONTE M.D. Normal [facility] Comment on above: Performed By: #### G LULS #### Point of Care testing , Neutrophils [#/volume] in Bl ood by Automated countOrdered By: Austin Monte on 02-25-2024 Neutrophils (Bld) [#/Vol] 4.1 10*3/uL Normal 1.8-7.7 [facility] Comment on above: Performed By: #### G LULS #### Point of Care testing , No Panel InformationOrdered By: Austin Monte on 02-25-2024 Estimated GFR (CKD-EPI) 51.890 mL/Min [facility] Creatinine Clearance (Chem N/A [facility] Nucleated erythrocytes [Pres ence] in Blood by Automated countOrdered By: Austin Monte on 02-25-2024 Nucleated RBC Auto Ql (Bld) 0.1 /100{WBC} 0-0.5 [facility] Platelet mean volume [Entiti c volume] in Blood by Automated countOrdered By: Austin Monte on 02-25-2024 Platelet mean volume (Bld) [Entitic vol] 9.0 fL Normal 6.6-10.1 [facility] Comment on above: Performed By: #### G LULS #### Point of Care testing , Platelets [#/volume] in Bloo d by Automated countOrdered By: Austin Monte on 02-25-2024 Platelets (Bld) [#/Vol] 150 10*3/uL Normal 150-450 [facility] Comment on above: Performed By: #### G LULS #### Point of Care testing , Potassium [Moles/volume] in Serum or PlasmaOrdered By: Austin Monte on 02-25-2024 Potassium [Moles/Vol] 4.6 mmol/L Normal 3.5-5.[address] [facility] Comment on above: Performed By: #### G LULS #### Point of Care testing , Prothrombin time (PT)Ordered By: Autsin Monte on 02-25-2024 PT Coag (PPP) [Time] 11.4 s Normal 9.0-12.9 [facility] Comment on above: A hematocrit value g reater than 55% may lead to inaccurate results in coagulation testing. Patients having hematocrit values >55% require a special collection tube for coagulation studies. Please contact the laboratory at [phone] for redraw instructions. Result Comment: A he matocrit value greater than 55% may lead to inaccurate results in coagulation testing. Patients having hematocrit values >55% require a special collection tube for coagulation studies. Please contact the laboratory at [phone] for redraw instructions. Performed By: #### G LULS #### Point of Care testing , Serum or plasma anion gap de terminationOrdered By: Austin Monte on 02-25-2024 Anion gap [Moles/Vol] 11.4 mmol/L Normal 6.0-15.0 [facility] Comment on above: Performed By: #### G LULS #### Point of Care testing , Sodium [Moles/volume] in Ser um or PlasmaOrdered By: Austin Monte on 02-25-2024 Sodium [Moles/Vol] 141 mmol/L Normal 136-145 [facility] Comment on above: Performed By: #### G LULS #### Point of Care testing , Urea nitrogen [Mass/volume] in Serum or PlasmaOrdered By: Austin Monte on 02-25-2024 Urea nitrogen [Mass/Vol] 21 mg/dL Normal 7-25 [facility] Comment on above: Performed By: #### G LULS #### Point of Care testing , Wound methicillin resistant Staphylococcus aureus (MRSA) cultureOrdered By: Austin Monte on 02-25-2024 MRSA isol Org specific cx Ql (Unsp spec) [facility] XR chest 2V*on 02-25-2024 XR chest 2V* [facility] [place] [address] [place] [address] XRay Report Signed Patient: Bishnu Love MR#: [id number] : 1945 Acct:[id number] Age/Sex: 78 / M ADM Date: 02/25/24 Loc: XD Room: Type: [facility] Attending Dr: Austin Monte PA-C Copies to: Austin Monte PA-C Ordering Provider: Austin Monte PA-C Date of Service: 02/25/24 XR/XR chest 2V*: M51.37 Plain film chest 2 view HISTORY: Presurgical testing for lumbar surgery COMPARISON: None FINDINGS: SUPPORT DEVICES: None POSTSURGICAL CHANGES: None HEART: Within normal limits PULMONARY OSCAR: Within normal limits MEDIASTINUM: Unremarkable LUNGS AND PLEURA: No acute lung process, pleural effusion or pneumothorax identified. BONY STRUCTURES: Thoracic hyperostosis ADDITIONAL FINDINGS None XR/XR chest 2V* IMPRESSION: No acute process. Impression dictated by: Jeff Nguyen M.D.02/25/2024 12:18 PM Dictation Location: [place] [address] Transcribed By: [facility] 02/25/24 1218 Dictated By: Jeff Nguyen DO 02/25/24 1211 Signed By: 02/25/24 1218 Normal [facility] MR lumbar spine wo conon MR lumbar spine wo con [facility] [address] MRI Report Signed Patient: Bishnu Love MR#: [id number] : 1945 Acct:[id number] Age/Sex: 78 / M ADM Date: 12/28/23 Loc: Room: Type: [facility] Attending Dr: Jed Salgado MD Copies to: Jed Weiss MD Ordering Provider: Jed Weiss MD Date of Service: 12/28/23 MR/MR lumbar spine wo con: M54.50 MR lumbar spine wo con 12/28/2023 11:19 AM SIGNS AND SYMPTOMS: Low back pain radiating down left leg, history of laminectomy PROTOCOL: Multiplanar multisequence MR images of the lumbar spine were obtained without IV contrast COMPARISON: 11/14/2023 FINDINGS: The bones of the lumbar spine are in anatomic alignment. There is preservation of vertebral body heights. There is moderate severe disc height loss at T12-L1, L1-L2, and L2-3 with moderate disc height loss at L3-L4. There is mild disc height loss at L5-S1. There is posterior fusion hardware with intervertebral fusion at L4-5. This is similar to the prior study. There is Modic type II fatty endplate degenerative change at T12-L1, L1-L2, and L2-L3. The conus terminates at the T12-L1 level. No epidural or paraspinous fluid collection is appreciated. At T12-L1: There is a circumferential disc bulge with facet hypertrophy. There is mild spinal canal narrowing with mild bilateral neural foraminal narrowing. At L1-L2: There is a broad-based disc bulge with facet hypertrophy and ligamentum flavum thickening. There is mild spinal canal stenosis with mild bilateral neural foraminal narrowing. At L2-L3: There is a circumferential disc bulge with endplate osteophyte formation and facet hypertrophy. There is posterior decompression. There is mild to moderate spinal canal stenosis with moderate right and moderate severe left neural foraminal narrowing. At L3-L4: There is a circumferential disc bulge with facet hypertrophy and posterior decompression. There is mild spinal canal narrowing with moderate severe right and severe left neural foraminal stenosis. There is mass effect on the exiting L3 nerve roots bilaterally. At L4-L5: Posterior fusion hardware, posterior decompression, and intervertebral fusion is noted. Residual endplate osteophyte formation consistent mild bilateral neural foraminal narrowing. No spinal canal narrowing. At L5-S1: There is a broad-based disc bulge with facet hypertrophy and ligamentum flavum thickening. There is moderate narrowing of spinal canal with mild bilateral neural foraminal narrowing. MR/MR lumbar spine wo con IMPRESSION: There is posterior and intervertebral fusion with posterior decompression at L4-5. Adjacent segment degenerative changes are noted, greatest at L3-L4 with mass effect on the exiting L3 nerve roots bilaterally. Additional significant degenerative changes noted at L2-L3 with lesser degrees of degenerative change throughout the lumbar spine as above. Impression dictated by: Toby Dodge M.D.12/28/2023 3:58 PM Dictation Location: [place] [address] Transcribed By: [facility] 12/28/23 1558 Dictated By: Toby Dodge II, MD 12/28/23 1552 Signed By: 12/28/23 1558 Normal [facility] CT lumbar spine wo [facility] CT lumbar spine wo [facility] [place] [address] CT Scan Report Signed Patient: Bishnu Love MR#: [id number] : 1945 Acct:[id number] Age/Sex: 78 / M ADM Date: 11/14/23 Loc: CT Room: Type: [facility] Attending Dr: Kaitlynn Liz MD Copies to: Kaitlynn Liz MD Ordering Provider: Kaitlynn Liz MD Date of Service: 11/14/23 CT/CT lumbar [...] Toby Dodge M.D.11/14/2023 4:16 PM Dictation Location: [place] [address] Transcribed By: [facility] 11/14/23 1616 Dictated By: Toby Dodge II, MD 11/14/23 1606 Signed By: 11/14/23 1616 Normal [facility] Covid-19 PCR (CVDTBH)on 08-03 SARS-CoV-2 (COVID-19) RNA BENITO+probe Ql (Unsp spec) Not detected Normal NOT DETECTED [facility] Comment on above: Result Comment: This test is not yet approved or cleared by the [place] FDA. When there are no FDA-approved or cleared tests available, and other criteria are met, FDA can make tests available under an emergency access mechanism called an Emergency Use Authorization (EUA). The EUA for this test is supported by the [employer] Supervisor of Health and Human Service's (HHS's) declaration [...] consistent with SARS-CoV-2. Performed By: #### C VDTB #### [facility] [address] [place] [address] Dr. Leeann Vail INFLUENZA A AND B [facility] 08-16 [facility] SEE BELOW Normal [facility] Comment on above: Result Comment: Nega tive for Flu A protein angiten. Infection due to Flu A cannot be ruled out. Flu A angiten in the sample may be below the detection limit of the test. Performed By: #### I NFLUAB #### [facility] [address] [place] [address] Dr. Leeann Vail [facility] SEE BELOW Normal [facility] Comment on above: Result Comment: Nega tive for Flu B protein antigen. Infection due to Flu B cannot be ruled out. Flu B antigen in the sample may be below the detection limit of the test. Performed By: #### I NFLUAB #### [facility] [address] [place] [address] Dr. Leeann Vail INFLUENZA A AG Negative Normal NEGATIVE SEE COMMENT [facility] Comment on above: Performed By: #### I NFLUAB #### [facility] [address] [place] [address] Dr. Leeann Vail INFLUENZA B AG Negative Normal NEGATIVE SEE COMMENT [facility] Comment on above: Performed By: #### I NFLUAB #### [facility] [address] [place] [address] Dr. Leeann Vail INTERNAL CONTROLS Within Normal Limits Normal Wi thin Normal Limits [facility] Comment on above: Performed By: #### I NFLUAB #### [facility] [address] [place] [address] [address] Leeann Vail Lab Reportson 04-02-2020 Lab Reports [id number]:127 [facility] Consent for Procedure/Surger yon 03-24-2020 Consent for Procedure/Surgery [id number]:127 [facility] Ambulatory Clinical Summaryo n 03-16-2020 Ambulatory Clinical Summary {[id number]}CD: [id number] [facility] Physician Referralon 020 Physician Referral [id number]:127 [facility] Vital Signs Date Time Vital Sign Value Performing Clinician Faci lity 03-31-2024 10:08-0400 Body temperature 98 [degF] MD Kaitlynn Liz Work Phone: [facility] 03-31-2024 10:08-0400 Diastolic blood pressure 84 mm[Hg] MD Kaitlynn Liz Work Phone: [facility] 03-31-2024 10:08-0400 Heart rate 78 /min MD Kaitlynn Liz Work Phone: [facility] 03-31-2024 10:08-0400 Respiratory rate 20 /min MD Kaitlynn Liz Work Phone: [facility] 03-31-2024 10:08-0400 SaO2% (BldA) [Mass fraction] 96 % MD Kaitlynn Liz Work Phone: [facility] 03-31-2024 10:08-0400 Systolic blood pressure 134 mm[Hg] MD aKitlynn Liz Work Phone: [facility] 03-30-2024 05:04-0400 Body weight 104.1 kg MD Kaitlynn Liz Work Phone: [facility] 03-24-2024 12:02-0400 Body height 177.8 cm MD Kaitlynn Liz Work Phone: [facility] Encounters Encounter Date Encounter Type Care Provider Facility Start: 03-24-2024 Non-patient / Non-visit MD Apolonia Liz Work Phone: [facility] Work Phone: Start: 03-17-2024 Non-patient / Non-visit MD Apolonia Liz Work Phone: [facility] Work Phone: Start: 03-16-2024 End: 03-31-2024 Evaluation and management of inpatient MD Kaitlynn Liz Work Phone: [facility] Work Phone: Start: 02-25-2024 End: 02-25-2024 Patient encounter procedure MD Kaitlynn Liz Work Phone: [facility] Work Phone: Start: 02-25-2024 End: 02-25-2024 ambulatory MD Kaitlynn Liz Work Phone: [facility] Work Phone: Start: 12-28-2023 End: 12-28-2023 Patient encounter procedure MD Kaitlynn Liz Work Phone: [facility] [place] Work Phone: Start: 12-28-2023 End: 12-28-2023 ambulatory MD Kaitlynn Liz Work Phone: [facility] Work Phone: Start: 11-14-2023 End: 11-14-2023 Patient encounter procedure MD Kaitlynn Liz Work Phone: [facility]-CT Scan [facility] [place] Work Phone: Start: 11-14-2023 End: 11-14-2023 ambulatory MD Kaitlynn Liz Work Phone: [facility] Work Phone: Start: 08-16-2022 End: 08-16-[address] KAITLYNN LIZ Facility:[facility]1 Procedures Date Procedure Procedure Detail Performing Clinician Start: 03-18-2024 Urine culture MD Delores Liz Work Phone: Start: 03-17-2024 Plain chest X-ray MD Vines Work Phone: Start: 02-25-2024 Methicillin resistan t Staphylococcus aureus culture MD Kaitlynn Liz Work Phone: Start: 02-25-2024 Plain chest X-ray MD Vines Work Phone: Start: 12-28-2023 MR lumbar spine wo con MD Kaitlynn Liz Work Phone: Start: 11-14-2023 CT of lumbar spine w ithout contrast MD Kaitlynn Liz Work Phone: Plan of Treatment Date Care Activity Detail Author Start: 03-31-2024 [facility] Start: 03-16-2024 Hospital admission [facility] Start: 03-16-2024 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 [facility] Start: 02-25-2024 MRSA Culture MRSA Culture [facility] Methicillin resistan t Staphylococcus aureus [Presence] in Unspecified specimen by Organism specific culture [facility] Patient Education Spinal Fusion (DC) Know your Meds [facility] Work Phone: Patient referral [facility] Work Phone: [facility] Payers Date Payer Category Payer Self-pay 1959 Medicare [id number] 1959 Unknown [id number] 1945 Unknown [id number] Medicare Medicare Outpatient [id number] Unknown [employer] C o [id number] Unknown [id number] Unknown [id number] Unknown [id number] Unknown [id number] Social History Date Type Detail Facility Tobacco smoking stat [facility] Unknown if ever smoked [facility] Work Phone: Start: 1945 Sex Assigned At Male [facility] Start: 03-17-2024 Tobacco smoking stat [facility] Ex-smoker (finding) [facility] End: 03-19-1987 History of tobacco use [facility] Work Phone: Goals Date Patient Goal Desired Activity /State Functional Status Date Assessment Result Facility 03-31-2024 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 [facility] Work Phone: Mental Status Date Assessment Result Facility 03-31-2024 Cognitive function Cognitive Sta tus Patient at Baseline [facility] Work Phone: Clinical Notes 03-18-2024 to 03-29-2024 Note Date & Type Note Facility 03-29-2024 Progress note Note Date/Time March 29, 2024 9:32am [facility] [address] [place] [address] Physiatry(Rehab) Progress Note Signed Patient: Bishnu Love MR#: [id number] : 1945 Acct:[id number] Age/Sex: 78 / M Adm Date: 4 Loc: Room: [address] [place] [address] Type: ADM IN Attending Dr: Albert Swan MD Copies to: ~ Date of Service: 03/29/2024 Subjective Subjective Narrative: Mr. Love is a 78 year old male presenting to acute inpatient rehab with functional impairments s/p lumbar fusion. Patient presented with complaints of constant low back pain and radicular symptoms. Has had pain in both legs, although mostly on the left side, associated with weakness. He has chronic back pain which recently gotten progressively worse. History of prior remote laminectomy and L4-L5 fusion. MRIof the lumbar spine demonstrated L4-5 posterior decompression and fusion, degenerative disc disease at L2-3 L4 with mass effect on existing L4 nerve root L2-L3 degenerative changes. Patient was recommended surgical treatment. Underwent L4-L5 hardware removal with L2-S1 decompression and fusion L2-L5. Postoperatively had a creatinine elevation up to 2.2 on 03/13, trending down. He was evaluated by PT and OT services and recommended acute rehab for strengthening. Interval History: Patient seen today. Working with therapy. HE appears in no distress currently. Denies chest pain, SOB, fever, chills. In good spirits. Review of Systems Review of Systems All other systems reviewed & are negative unless noted below or in HPI Exam Physical Exam Vital Signs: Temp Pulse Resp BP Pulse Ox O2 Del Method 98.2 F 81 18 118/75 98 Room Air 03/29/24 05:00 03/29/24 05:00 03/29/24 05:00 03/29/24 05:00 03/29/24 05:00 03/29/24 05:00 Narrative: General: Awake, alert, oriented x3. Working with therapy HENT: Normal to inspection, normocephalic, atraumatic Eyes: PERRL, normal conjunctiva and sclera Neck: Normal ROM, normal visual inspection. Trachea midline. Cardio: Regular heart rate and rhythm Respiratory: Clear to auscultation bilaterally. Normal respiratory effort. No respiratory distress. GI: Abdomen soft, nontender, nondistended, active bowel sounds x4 quadrants Neuro: CN II-XII intact. Strength 5/5, equal bilaterally. Neurosensory intact. Extremities: No edema, erythema, cyanosis Psych: Mood and affect appropriate. Normal speech. Objective Labs 03/23/24 05:08 03/23/24 05:08 Labs: Laboratory Results - last 24 hr 03/28/24 03/28/24 03/28/24 11:35 16:00 21:17 POC Glucose 135 105 193 POC Glucose Comment Glu2: cleaned meter Glu2: cleaned meter 03/29/24 06:50 POC Glucose 120 POC Glucose Comment Medications and Allergies Allergies and Active Meds: Allergies cephalexin [From Keflex] Adverse Reaction (Mild, Verified 03/18/24 18:59) Itching Active Medications Generic Name Dose Route Start Last Admin Trade Name Niranjan PRN Reason Stop Dose Admin Acetaminophen 500 mg 03/16/24 13:09 03/20/24 09:56 Acetaminophen 500 Mg Tablet PO 03/16/25 13:08 500 mg Q4H PRN Administration Pain Al Hydrox/Mg Hydrox/Simethicone 30 ml 03/16/24 13:09 Mag Hydrox/Al Hydrox/Simeth 30 Ml Udc PO 03/16/25 13:08 Q4H PRN Indigestion Atorvastatin Calcium 10 mg 03/16/24 22:00 03/28/24 22:34 Atorvastatin 10 Mg Tablet PO 03/16/25 21:59 10 mg QHS MARIELOS Administration Bisacodyl 10 mg 03/16/24 13:09 Bisacodyl 10 Mg Supp.Rect PA 03/16/25 13:08 DAILY PRN Constipation Cyclobenzaprine HCl 10 mg 03/16/24 13:07 03/27/24 20:43 Cyclobenzaprine 10 Mg Tablet PO 03/16/25 13:06 10 mg TID PRN Administration muscle spasm Diclofenac Sodium 2 gm 03/28/24 08:07 Diclofenac Sodium 1% Gel 100 Gm Tube TOPICAL 03/28/25 08:06 BID PRN pain Diphenhydramine HCl 25 mg 03/18/24 18:43 03/20/24 20:15 Diphenhydramine 25 Mg Capsule PO 03/18/25 18:42 25 mg Q4H PRN Administration Itching Docusate Sodium 100 mg 03/16/24 13:09 03/25/24 07:44 Docusate 100 Mg Capsule PO 03/16/25 13:08 100 mg BID PRN Administration Constipation Docusate Sodium 283 mg 03/16/24 13:09 Docusate Enema 283 Mg/5 Ml Enema PA 03/16/25 13:08 DAILY PRN Constipation Enoxaparin Sodium 40 mg 03/19/24 10:00 03/28/24 09:12 Enoxaparin 40 Mg/0.4 Ml Syringe SUBCUT 03/19/25 09:59 40 mg DAILY@1000 MARIELOS Administration Ferrous Sulfate 324 mg 03/20/24 09:00 03/28/24 09:10 Ferrous Sulfate 324 Mg Tablet. PO 03/20/25 08:59 324 mg Q48HR MARIELOS Administration Glimepiride 1 mg 03/17/24 08:00 03/28/24 09:10 Glimepiride 1 Mg Tablet PO 03/17/25 07:59 1 mg DAILY.WITH.BKFAST MARIELOS Administration Guaifenesin 600 mg 03/17/24 17:20 03/19/24 21:32 Guaifenesin 600 Mg Tab.Er.12h PO 03/17/25 17:19 600 mg BID PRN Administration Congestion Lactulose 30 gm 03/16/24 13:09 Lactulose 20 Gm/30 Ml Udc PO 03/16/25 13:08 DAILY PRN Constipation Lisinopril 20 mg 03/23/24 09:00 03/28/24 09:10 Lisinopril 20 Mg Tablet PO 03/23/25 08:59 20 mg DAILY MARIELOS Administration Melatonin 10 mg 03/22/24 22:00 03/28/24 22:34 Melatonin 5 Mg Tablet PO 03/22/25 21:59 10 mg QHS MARIELOS Administration Metoprolol Tartrate 50 mg 03/17/24 09:00 03/28/24 20:44 Metoprolol Tartrate 50 Mg Tablet PO 03/17/25 08:59 50 mg BID MARIELOS Administration Oxycodone/Acetaminophen 1 tab 03/16/24 14:00 03/28/24 20:43 Oxycodone/Acetaminophen 5-325 Mg Tablet PO 1 tab Q6HR PRN Administration pain Pantoprazole Sodium 40 mg 03/17/24 09:00 03/28/24 09:10 Pantoprazole 40 Mg Tablet. PO 03/17/25 08:59 40 mg DAILY MARIELOS Administration Sennosides 2 tab 03/17/24 12:00 03/25/24 07:43 Sennosides 8.6 Mg Tablet PO 03/17/25 11:59 2 tab DAILY@12 PRN Administration If no BM in 2 days Sodium Chloride 0 ml 03/16/24 13:09 Sodium Chloride 0.9 % 10 Ml Syringe IV-PUSH 03/16/25 13:08 PRN PRN Flush Assessment/Plan Assessment/Plan (1) S/P lumbar fusion: Plan: PT to improve pt's strength, endurance, bed mobility, transfers (sit-stand), standing balance, gait quality on level surfaces and stairs, coordination and functional ADL skills. Will also work to improve pt's safety awareness during transfers and ambulation. OT for basic ADL re-training (bathing, dressing, toileting, continence, grooming, feeding, transferring), to increase activity tolerance and functional mobility and to evaluate for adaptive and assistive devices. Will work to improve pt's endurance and educate pt on fall prevention and energy conservationtechniques-pacing strategies and proper breathing techniques during functional tasks. Patient education Pressure ulcer prophylaxis; encourage mobilization, frequent postural changes, pressure-relief techniques DVT prophylaxis Encourage deep breathing exercise incentive spirometry. Monitor bladder. Toileting schedule. Continue current bladder management, with scans as needed and CIC if needed. Start bowel care program every day to obtain continence, prevent ileus. Maintain fall precautions Gait and balance retraining Provision of the necessary gait aids and functional adaptive equipment to enhance the patient's a functional judaism Encourage deep breathing exercises and incentive spirometry RD evaluation Ensure adequate nutrition and hydration Discharge planning. (2) Impaired mobility and activities of daily living: (3) Hypertension: (4) Hyperlipemia: (5) Diabetes mellitus: (6) Lumbar stenosis: (7) CKD (chronic kidney disease): Plan Patient is a 78-year-old male with past medical history of back pain due to lumbar stenosis, radiculopathy, who recently underwent old L3-L4 hardware removal, L2 S1 decompression and L2-L5 fusion by Dr. Weiss. * Stable and improving * Consider b/l vdopp if develops edema or cramping recurs. * Ambulatory 300' and now able to do some stairs with assist. Trial off assistive device. * Agreeable to home Saturday 03/31 so that family can have necessary arrangements in place for safe discharge. Patient education Pressure ulcer prophylaxis; encourage mobilization, frequent postural changes, pressure-relief techniques DVT prophylaxis Encourage deep breathing exercise incentive spirometry. Monitor bladder. Toileting schedule. Continue current bladder management, with scans as needed and CIC if needed. Start bowel care program every day to obtain continence, prevent ileus. Maintain fall precautions Gait and balance retraining Functional training and self-care and home management, including activities of daily living and instrumental activities of daily living Provision of the necessary gait aids and functional adaptive equipment to enhance the patient's a functional judaism Ensure adequate nutrition and hydration Sleep no issues Pain: Continue current regimen Discharge planning: Home 03/31. I spent 25 minutes for services, including [id number] encounter with the patient, discussion of the case, plan of care, and exam; and [id number] activities, such as reviewing pertinent it consultant documentation, recent therapynotes, laboratory and radiology studies, and discussion of case with care team including physician, nursing, wrapper caser, and therapists. More than 50 % of time was spent on patient/family counseling or coordination ofcare. Documented By: Camron Carpenter MD 0930 Signed By: <Electronically signed by Camron Carpenter MD> 03/29/24 0932 [facility] Work Phone: 1(354) 256-885907-26-2024 Progress note Author Albert Swan [facility] March 28, 2024 12:15pm Note Date/Time March 28, 2024 11:5 4am [facility] [address] [place] [address] Physiatry(Rehab) Progress Note Signed Patient: Bishnu Love MR#: [id number] : 1945 Acct:[id number] Age/Sex: 78 / M Adm Date: 4 Loc: Room: 2U4517-8 Type: ADM IN Attending Dr: Albert Swan MD Copies to: ~ Date of Service: 03/28/2024 Subjective Subjective Narrative: Mr. Love is a 78 year old male presenting to acute inpatient rehab with functional impairments s/p lumbar fusion. Patient presented with complaints of constant low back pain and radicular symptoms. Has had pain in both legs, although mostly on the left side, associated with weakness. He has chronic back pain which recently gotten progressively worse. History of prior remote laminectomy and L4-L5 fusion. MRIof the lumbar spine demonstrated L4-5 posterior decompression and fusion, degenerative disc disease at L2-3 L4 with mass effect on existing L4 nerve root L2-L3 degenerative changes. Patient was recommended surgical treatment. Underwent L4-L5 hardware removal with L2-S1 decompression and fusion L2-L5. Postoperatively had a creatinine elevation up to 2.2 on 03/13, trending down. He was evaluated by PT and OT services and recommended acute rehab for strengthening. Interval History: Continues to improve. Walked with no device today. Daughter at bedside. Had some dolores horses at left leg last night but he describes legs as restless. These resolved quickly. Review of Systems Review of Systems All other systems reviewed & are negative unless noted below or in HPI Exam Physical Exam Vital Signs: Temp Pulse Resp BP Pulse Ox O2 Del Method 97.9 F 81 16 146/82 H 98 Room Air 03/28/24 06:38 03/28/24 06:38 03/28/24 06:38 03/28/24 06:38 03/28/24 06:38 03/28/24 09:23 Narrative: General: Awake, alert, oriented x3 HENT: Normal to inspection, normocephalic, atraumatic Eyes: PERRL, normal conjunctiva and sclera Neck: Normal ROM, normal visual inspection. Trachea midline. Cardio: Regular heart rate and rhythm Respiratory: Clear to auscultation bilaterally. Normal respiratory effort. No respiratory distress. GI: Abdomen soft, nontender, nondistended, active bowel sounds x4 quadrants Neuro: CN II-XII intact. Strength 5/5, equal bilaterally. Neurosensory intact. Extremities: No edema, erythema, cyanosis Psych: Mood and affect appropriate. Normal speech. Objective Labs 03/23/24 05:08 03/23/24 05:08 Labs: Laboratory Results - last 24 hr 03/27/24 03/27/24 03/28/24 16:24 20:40 06:37 POC Glucose 156 173 128 POC Glucose Comment Glu2: cleaned meter 03/28/24 11:35 POC Glucose 135 POC Glucose Comment Glu2: cleaned meter Medications and Allergies Allergies and Active Meds: Allergies cephalexin [From Keflex] Adverse Reaction (Mild, Verified 03/18/24 18:59) Itching Active Medications Generic Name Dose Route Start Last Admin Trade Name Freq PRN Reason Stop Dose Admin Acetaminophen 500 mg 03/16/24 13:09 03/20/24 09:56 Acetaminophen 500 Mg Tablet PO 03/16/25 13:08 500 mg Q4H PRN Administration Pain Al Hydrox/Mg Hydrox/Simethicone 30 ml 03/16/24 13:09 Mag Hydrox/Al Hydrox/Simeth 30 Ml Udc PO 03/16/25 13:08 Q4H PRN Indigestion Atorvastatin Calcium 10 mg 03/16/24 22:00 03/27/24 20:44 Atorvastatin 10 Mg Tablet PO 03/16/25 21:59 10 mg QHS MARIELOS Administration Bisacodyl 10 mg 03/16/24 13:09 Bisacodyl 10 Mg Supp.Rect PA 03/16/25 13:08 DAILY PRN Constipation Cyclobenzaprine HCl 10 mg 03/16/24 13:07 03/27/24 20:43 Cyclobenzaprine 10 Mg Tablet PO 03/16/25 13:06 10 mg TID PRN Administration muscle spasm Diclofenac Sodium 2 gm 03/28/24 08:07 Diclofenac Sodium 1% Gel 100 Gm Tube TOPICAL 03/28/25 08:06 BID PRN pain Diphenhydramine HCl 25 mg 03/18/24 18:43 03/20/24 20:15 Diphenhydramine 25 Mg Capsule PO 03/18/25 18:42 25 mg Q4H PRN Administration Itching Docusate Sodium 100 mg 03/16/24 13:09 03/25/24 07:44 Docusate 100 Mg Capsule PO 03/16/25 13:08 100 mg BID PRN Administration Constipation Docusate Sodium 283 mg 03/16/24 13:09 Docusate Enema 283 Mg/5 Ml Enema PA 03/16/25 13:08 DAILY PRN Constipation Enoxaparin Sodium 40 mg 03/19/24 10:00 03/28/24 09:12 Enoxaparin 40 Mg/0.4 Ml Syringe SUBCUT 03/19/25 09:59 40 mg DAILY@1000 MARIELOS Administration Ferrous Sulfate 324 mg 03/20/24 09:00 03/28/24 09:10 Ferrous Sulfate 324 Mg Tablet. PO 03/20/25 08:59 324 mg Q48HR MARIELOS Administration Glimepiride 1 mg 03/17/24 08:00 03/28/24 09:10 Glimepiride 1 Mg Tablet PO 03/17/25 07:59 1 mg DAILY.WITH.BKFAST MARIELOS Administration Guaifenesin 600 mg 03/17/24 17:20 03/19/24 21:32 Guaifenesin 600 Mg Tab.Er.12h PO 03/17/25 17:19 600 mg BID PRN Administration Congestion Lactulose 30 gm 03/16/24 13:09 Lactulose 20 Gm/30 Ml Udc PO 03/16/25 13:08 DAILY PRN Constipation Lisinopril 20 mg 03/23/24 09:00 03/28/24 09:10 Lisinopril 20 Mg Tablet PO 03/23/25 08:59 20 mg DAILY MARIELOS Administration Melatonin 10 mg 03/22/24 22:00 03/27/24 20:44 Melatonin 5 Mg Tablet PO 03/22/25 21:59 10 mg QHS MARIELOS Administration Metoprolol Tartrate 50 mg 03/17/24 09:00 03/28/24 09:10 Metoprolol Tartrate 50 Mg Tablet PO 03/17/25 08:59 50 mg BID MARIELOS Administration Oxycodone/Acetaminophen 1 tab 03/16/24 14:00 03/28/24 09:15 Oxycodone/Acetaminophen 5-325 Mg Tablet PO 1 tab Q6HR PRN Administration pain Pantoprazole Sodium 40 mg 03/17/24 09:00 03/28/24 09:10 Pantoprazole 40 Mg Tablet. PO 03/17/25 08:59 40 mg DAILY MARIELOS Administration Sennosides 2 tab 03/17/24 12:00 03/25/24 07:43 Sennosides 8.6 Mg Tablet PO 03/17/25 11:59 2 tab DAILY@12 PRN Administration If no BM in 2 days Sodium Chloride 0 ml 03/16/24 13:09 Sodium Chloride 0.9 % 10 Ml Syringe IV-PUSH 03/16/25 13:08 PRN PRN Flush Assessment/Plan Assessment/Plan (1) S/P lumbar fusion: Plan: PT to improve pt's strength, endurance, bed mobility, transfers (sit-stand), standing balance, gait quality on level surfaces and stairs, coordination and functional ADL skills. Will also work to improve pt's safety awareness during transfers and ambulation. OT for basic ADL re-training (bathing, dressing, toileting, continence, grooming, feeding, transferring), to increase activity tolerance and functional mobility and to evaluate for adaptive and assistive devices. Will work to improve pt's endurance and educate pt on fall prevention and energy conservationtechniques-pacing strategies and proper breathing techniques during functional tasks. Patient education Pressure ulcer prophylaxis; encourage mobilization, frequent postural changes, pressure-relief techniques DVT prophylaxis Encourage deep breathing exercise incentive spirometry. Monitor bladder. Toileting schedule. Continue current bladder management, with scans as needed and CIC if needed. Start bowel care program every day to obtain continence, prevent ileus. Maintain fall precautions Gait and balance retraining Provision of the necessary gait aids and functional adaptive equipment to enhance the patient's a functional judaism Encourage deep breathing exercises and incentive spirometry RD evaluation Ensure adequate nutrition and hydration Discharge planning. (2) Impaired mobility and activities of daily living: (3) Hypertension: (4) Hyperlipemia: (5) Diabetes mellitus: (6) Lumbar stenosis: (7) CKD (chronic kidney disease): Plan Patient is a 78-year-old male with past medical history of back pain due to lumbar stenosis, radiculopathy, who recently underwent old L3-L4 hardware removal, L2 S1 decompression and L2-L5 fusion by Dr. Weiss. * Stable and improving * Consider b/l vdopp if develops edema or cramping recurs. * Ambulatory 300' and now able to do some stairs with assist. Trial off assistive device. * Agreeable to home Saturday 03/31 so that family can have necessary arrangements in place for safe discharge. Patient education Pressure ulcer prophylaxis; encourage mobilization, frequent postural changes, pressure-relief techniques DVT prophylaxis Encourage deep breathing exercise incentive spirometry. Monitor bladder. Toileting schedule. Continue current bladder management, with scans as needed and CIC if needed. Start bowel care program every day to obtain continence, prevent ileus. Maintain fall precautions Gait and balance retraining Functional training and self-care and home management, including activities of daily living and instrumental activities of daily living Provision of the necessary gait aids and functional adaptive equipment to enhance the patient's a functional judaism Ensure adequate nutrition and hydration Sleep no issues Pain: Continue current regimen Discharge planning: Home 03/31. I spent 25 minutes for services, including [id number] encounter with the patient, discussion of the case, plan of care, and exam; and [id number] activities, such as reviewing pertinent it consultant documentation, recent therapynotes, laboratory and radiology studies, and discussion of case with care team including physician, nursing, wrapper caser, and therapists. More than 50 % of time was spent on patient/family counseling or coordination ofcare. Documented By: Albert Swan MD 03/28/24 1154 Signed By: <Electronically signed by Albert Swan MD> 03/28/24 1215 [facility] Work Phone: 1(778) 128-167807-24-2024 Progress note Author Albert Swan [facility] March 26, 2024 12:58pm Note Date/Time March 26, 2024 11:5 3am [facility] [address] [place] [address] Physiatry(Rehab) Progress Note Signed Patient: Bishnu Love MR#: [id number] : 1945 Acct:[id number] Age/Sex: 78 / M Adm Date: 4 Loc: Room: [address] [place] [address] Type: ADM IN Attending Dr: Albert Swan MD Copies to: ~ Date of Service: 03/26/2024 Subjective Subjective Narrative: Mr. Love is a 78 year old male presenting to acute inpatient rehab with functional impairments s/p lumbar fusion. Patient presented with complaints of constant low back pain and radicular symptoms. Has had pain in both legs, although mostly on the left side, associated with weakness. He has chronic back pain which recently gotten progressively worse. History of prior remote laminectomy and L4-L5 fusion. MRIof the lumbar spine demonstrated L4-5 posterior decompression and fusion, degenerative disc disease at L2-3 L4 with mass effect on existing L4 nerve root L2-L3 degenerative changes. Patient was recommended surgical treatment. Underwent L4-L5 hardware removal with L2-S1 decompression and fusion L2-L5. Postoperatively had a creatinine elevation up to 2.2 on 03/13, trending down. He was evaluated by PT and OT services and recommended acute rehab for strengthening. Interval History: Doing well today. Pain controlled. Sparingly using opioid/muscle relaxer. Improving with therapy and progressing to goals for discharge. Vitals stable on room air. No calf pain/edema. Review of Systems Review of Systems All other systems reviewed & are negative unless noted below or in HPI Exam Physical Exam Vital Signs: Temp Pulse Resp BP Pulse Ox O2 Del Method 98.1 F 97 18 118/67 95 Room Air 03/26/24 05:00 03/26/24 08:51 03/26/24 05:00 03/26/24 08:51 03/26/24 08:51 03/26/24 07:30 Narrative: General: Awake, alert, oriented x3 HENT: Normal to inspection, normocephalic, atraumatic Eyes: PERRL, normal conjunctiva and sclera Neck: Normal ROM, normal visual inspection. Trachea midline. Cardio: Regular heart rate and rhythm Respiratory: Clear to auscultation bilaterally. Normal respiratory effort. No respiratory distress. GI: Abdomen soft, nontender, nondistended, active bowel sounds x4 quadrants Neuro: CN II-XII intact. Strength 5/5, equal bilaterally. Neurosensory intact. Extremities: No edema, erythema, cyanosis Psych: Mood and affect appropriate. Normal speech. Objective Labs 03/23/24 05:08 03/23/24 05:08 Labs: Laboratory Results - last 24 hr 03/25/24 03/25/24 03/26/24 16:16 19:58 05:54 POC Glucose 114 196 129 POC Glucose Comment Glu2: cleaned meter Glu2: cleaned meter 03/26/24 11:22 POC Glucose 239 POC Glucose Comment Medications and Allergies Allergies and Active Meds: Allergies cephalexin [From Keflex] Adverse Reaction (Mild, Verified 03/18/24 18:59) Itching Active Medications Generic Name Dose Route Start Last Admin Trade Name Freq PRN Reason Stop Dose Admin Acetaminophen 500 mg 03/16/24 13:09 03/20/24 09:56 Acetaminophen 500 Mg Tablet PO 03/16/25 13:08 500 mg Q4H PRN Administration Pain Al Hydrox/Mg Hydrox/Simethicone 30 ml 03/16/24 13:09 Mag Hydrox/Al Hydrox/Simeth 30 Ml Udc PO 03/16/25 13:08 Q4H PRN Indigestion Atorvastatin Calcium 10 mg 03/16/24 22:00 03/25/24 20:25 Atorvastatin 10 Mg Tablet PO 03/16/25 21:59 10 mg QHS MARIELOS Administration Bisacodyl 10 mg 03/16/24 13:09 Bisacodyl 10 Mg Supp.Rect PA 03/16/25 13:08 DAILY PRN Constipation Cyclobenzaprine HCl 10 mg 03/16/24 13:07 03/20/24 20:15 Cyclobenzaprine 10 Mg Tablet PO 03/16/25 13:06 10 mg TID PRN Administration muscle spasm Diphenhydramine HCl 25 mg 03/18/24 18:43 03/20/24 20:15 Diphenhydramine 25 Mg Capsule PO 03/18/25 18:42 25 mg Q4H PRN Administration Itching Docusate Sodium 100 mg 03/16/24 13:09 03/25/24 07:44 Docusate 100 Mg Capsule PO 03/16/25 13:08 100 mg BID PRN Administration Constipation Docusate Sodium 283 mg 03/16/24 13:09 Docusate Enema 283 Mg/5 Ml Enema PA 03/16/25 13:08 DAILY PRN Constipation Enoxaparin Sodium 40 mg 03/19/24 10:00 03/26/24 10:01 Enoxaparin 40 Mg/0.4 Ml Syringe SUBCUT 03/19/25 09:59 Not Given DAILY@1000 MARIELOS Ferrous Sulfate 324 mg 03/20/24 09:00 03/26/24 08:45 Ferrous Sulfate 324 Mg Tablet. PO 03/20/25 08:59 324 mg Q48HR MARIELOS Administration Glimepiride 1 mg 03/17/24 08:00 03/26/24 08:45 Glimepiride 1 Mg Tablet PO 03/17/25 07:59 1 mg DAILY.WITH.BKFAST MARIELOS Administration Guaifenesin 600 mg 03/17/24 17:20 03/19/24 21:32 Guaifenesin 600 Mg Tab.Er.12h PO 03/17/25 17:19 600 mg BID PRN Administration Congestion Lactulose 30 gm 03/16/24 13:09 Lactulose 20 Gm/30 Ml Udc PO 03/16/25 13:08 DAILY PRN Constipation Lisinopril 20 mg 03/23/24 09:00 03/26/24 08:45 Lisinopril 20 Mg Tablet PO 03/23/25 08:59 20 mg DAILY MARIELOS Administration Melatonin 10 mg 03/22/24 22:00 03/25/24 20:24 Melatonin 5 Mg Tablet PO 03/22/25 21:59 10 mg QHS MARIELOS Administration Metoprolol Tartrate 50 mg 03/17/24 09:00 03/26/24 08:45 Metoprolol Tartrate 50 Mg Tablet PO 03/17/25 08:59 50 mg BID MARIELOS Administration Oxycodone/Acetaminophen 1 tab 03/16/24 14:00 03/26/24 08:45 Oxycodone/Acetaminophen 5-325 Mg Tablet PO 1 tab Q6HR PRN Administration pain Pantoprazole Sodium 40 mg 03/17/24 09:00 03/26/24 08:45 Pantoprazole 40 Mg Tablet.Dr FENTON 03/17/25 08:59 40 mg DAILY MARIELOS Administration Sennosides 2 tab 03/17/24 12:00 03/25/24 07:43 Sennosides 8.6 Mg Tablet PO 03/17/25 11:59 2 tab DAILY@12 PRN Administration If no BM in 2 days Sodium Chloride 0 ml 03/16/24 13:09 Sodium Chloride 0.9 % 10 Ml Syringe IV-PUSH 03/16/25 13:08 PRN PRN Flush Assessment/Plan Assessment/Plan (1) S/P lumbar fusion: Plan: PT to improve pt's strength, endurance, bed mobility, transfers (sit-stand), standing balance, gait quality on level surfaces and stairs, coordination and functional ADL skills. Will also work to improve pt's safety awareness during transfers and ambulation. OT for basic ADL re-training (bathing, dressing, toileting, continence, grooming, feeding, transferring), to increase activity tolerance and functional mobility and to evaluate for adaptive and assistive devices. Will work to improve pt's endurance and educate pt on fall prevention and energy conservationtechniques-pacing strategies and proper breathing techniques during functional tasks. Patient education Pressure ulcer prophylaxis; encourage mobilization, frequent postural changes, pressure-relief techniques DVT prophylaxis Encourage deep breathing exercise incentive spirometry. Monitor bladder. Toileting schedule. Continue current bladder management, with scans as needed and CIC if needed. Start bowel care program every day to obtain continence, prevent ileus. Maintain fall precautions Gait and balance retraining Provision of the necessary gait aids and functional adaptive equipment to enhance the patient's a functional judaism Encourage deep breathing exercises and incentive spirometry RD evaluation Ensure adequate nutrition and hydration Discharge planning. (2) Impaired mobility and activities of daily living: (3) Hypertension: (4) Hyperlipemia: (5) Diabetes mellitus: (6) Lumbar stenosis: (7) CKD (chronic kidney disease): Plan Patient is a 78-year-old male with past medical history of back pain due to lumbar stenosis, radiculopathy, who recently underwent old L3-L4 hardware removal, L2 S1 decompression and L2-L5 fusion by Dr. Weiss. * Weaned to room air * Hematuria resolved, afebrile. * Pain controlled * Noted repeat Covid PCR negative, asymptomatic. * Ambulatory 300' and now able to do some stairs with assist. * Agreeable to home Saturday 03/31 so that family can have necessary arrangements in place for safe discharge. Patient education Pressure ulcer prophylaxis; encourage mobilization, frequent postural changes, pressure-relief techniques DVT prophylaxis Encourage deep breathing exercise incentive spirometry. Monitor bladder. Toileting schedule. Continue current bladder management, with scans as needed and CIC if needed. Start bowel care program every day to obtain continence, prevent ileus. Maintain fall precautions Gait and balance retraining Functional training and self-care and home management, including activities of daily living and instrumental activities of daily living Provision of the necessary gait aids and functional adaptive equipment to enhance the patient's a functional judaism Ensure adequate nutrition and hydration Sleep no issues Pain: Continue current regimen Discharge planning: Home 03/31. I spent 28 minutes for services, including [id number] encounter with the patient, discussion of the case, plan of care, and exam; and [id number] activities, such as reviewing pertinent it consultant documentation, recent therapynotes, laboratory and radiology studies, and discussion of case with care team including physician, nursing, wrapper caser, and therapists. More than 50 % of time was spent on patient/family counseling or coordination ofcare. Documented By: Albert Swan MD 03/26/24 1144 Signed By: <Electronically signed by Albert Swan MD> 03/26/24 0081 [facility] Work Phone: [phone] 242-336907-24-2024 Progress note Author Albert Swan [facility] March 26, 2024 10:40am Note Date/Time March 26, 2024 10:3 5am [facility] [address] [place] [address] Physiatry(Rehab) Progress Note Signed Patient: Bishnu Love MR#: [id number] : 1945 Acct:[id number] Age/Sex: 78 / M Adm Date: 4 Loc: Room: [address] [place] [address] Type: ADM IN Attending Dr: Albert Swan MD Copies to: ~ Date of Service: 03/25/2024 Subjective Subjective Narrative: Mr. Love is a 78 year old male presenting to acute inpatient rehab with functional impairments s/p lumbar fusion. Patient presented with complaints of constant low back pain and radicular symptoms. Has had pain in both legs, although mostly on the left side, associated with weakness. He has chronic back pain which recently gotten progressively worse. History of prior remote laminectomy and L4-L5 fusion. MRIof the lumbar spine demonstrated L4-5 posterior decompression and fusion, degenerative disc disease at L2-3 L4 with mass effect on existing L4 nerve root L2-L3 degenerative changes. Patient was recommended surgical treatment. Underwent L4-L5 hardware removal with L2-S1 decompression and fusion L2-L5. Postoperatively had a creatinine elevation up to 2.2 on 03/13, trending down. He was evaluated by PT and OT services and recommended acute rehab for strengthening. Interval History: Seen and examined at bedside. Family present. Discussed at team meeting plan for d/c Sunday, family would prefer a few more days to ensure safe discharge in place to home. Agreeable to home Saturday 03/31. Hematuria has resolved. Able to do some stairs. Weaned to room air. Review of Systems Review of Systems All other systems reviewed & are negative unless noted below or in HPI Exam Physical Exam Vital Signs: Temp Pulse Resp BP Pulse Ox O2 Del Method 98.1 F 97 18 118/67 95 Room Air 03/26/24 05:00 03/26/24 08:51 03/26/24 05:00 03/26/24 08:51 03/26/24 08:51 03/26/24 07:30 Narrative: General: Awake, alert, oriented x3 HENT: Normal to inspection, normocephalic, atraumatic Eyes: PERRL, normal conjunctiva and sclera Neck: Normal ROM, normal visual inspection. Trachea midline. Cardio: Regular heart rate and rhythm Respiratory: Clear to auscultation bilaterally. Normal respiratory effort. No respiratory distress. GI: Abdomen soft, nontender, nondistended, active bowel sounds x4 quadrants Neuro: CN II-XII intact. Strength 5/5, equal bilaterally. Neurosensory intact. Extremities: No edema, erythema, cyanosis Psych: Mood and affect appropriate. Normal speech. Objective Labs 03/23/24 05:08 03/23/24 05:08 Labs: Laboratory Results - last 24 hr 03/25/24 03/25/24 03/25/24 11:08 16:16 19:58 POC Glucose 258 114 196 POC Glucose Comment Glu2: cleaned meter Glu2: cleaned meter 03/26/24 05:54 POC Glucose 129 POC Glucose Comment Medications and Allergies Allergies and Active Meds: Allergies cephalexin [From Keflex] Adverse Reaction (Mild, Verified 03/18/24 18:59) Itching Active Medications Generic Name Dose Route Start Last Admin Trade Name Freq PRN Reason Stop Dose Admin Acetaminophen 500 mg 03/16/24 13:09 03/20/24 09:56 Acetaminophen 500 Mg Tablet PO 03/16/25 13:08 500 mg Q4H PRN Administration Pain Al Hydrox/Mg Hydrox/Simethicone 30 ml 03/16/24 13:09 Mag Hydrox/Al Hydrox/Simeth 30 Ml Udc PO 03/16/25 13:08 Q4H PRN Indigestion Albuterol/Ipratropium 3 ml 03/18/24 11:34 Ipratropium/Albuterol 0.5-3 Mg 3 Ml Ampul.Neb INHALATION 03/17/25 19:59 QID.RESP PRN Wheezing Atorvastatin Calcium 10 mg 03/16/24 22:00 03/25/24 20:25 Atorvastatin 10 Mg Tablet PO 03/16/25 21:59 10 mg QHS MARIELOS Administration Bisacodyl 10 mg 03/16/24 13:09 Bisacodyl 10 Mg Supp.Rect PA 03/16/25 13:08 DAILY PRN Constipation Cyclobenzaprine HCl 10 mg 03/16/24 13:07 03/20/24 20:15 Cyclobenzaprine 10 Mg Tablet PO 03/16/25 13:06 10 mg TID PRN Administration muscle spasm Diphenhydramine HCl 25 mg 03/18/24 18:43 03/20/24 20:15 Diphenhydramine 25 Mg Capsule PO 03/18/25 18:42 25 mg Q4H PRN Administration Itching Docusate Sodium 100 mg 03/16/24 13:09 03/25/24 07:44 Docusate 100 Mg Capsule PO 03/16/25 13:08 100 mg BID PRN Administration Constipation Docusate Sodium 283 mg 03/16/24 13:09 Docusate Enema 283 Mg/5 Ml Enema PA 03/16/25 13:08 DAILY PRN Constipation Enoxaparin Sodium 40 mg 03/19/24 10:00 03/26/24 10:01 Enoxaparin 40 Mg/0.4 Ml Syringe SUBCUT 03/19/25 09:59 Not Given DAILY@1000 MARIELOS Ferrous Sulfate 324 mg 03/20/24 09:00 03/26/24 08:45 Ferrous Sulfate 324 Mg Tablet. PO 03/20/25 08:59 324 mg Q48HR MARIELOS Administration Glimepiride 1 mg 03/17/24 08:00 03/26/24 08:45 Glimepiride 1 Mg Tablet PO 03/17/25 07:59 1 mg DAILY.WITH.BKFAST MARIELOS Administration Guaifenesin 600 mg 03/17/24 17:20 03/19/24 21:32 Guaifenesin 600 Mg Tab.Er.12h PO 03/17/25 17:19 600 mg BID PRN Administration Congestion Lactulose 30 gm 03/16/24 13:09 Lactulose 20 Gm/30 Ml Udc PO 03/16/25 13:08 DAILY PRN Constipation Lisinopril 20 mg 03/23/24 09:00 03/26/24 08:45 Lisinopril 20 Mg Tablet PO 03/23/25 08:59 20 mg DAILY MARIELOS Administration Melatonin 10 mg 03/22/24 22:00 03/25/24 20:24 Melatonin 5 Mg Tablet PO 03/22/25 21:59 10 mg QHS MARIELOS Administration Metoprolol Tartrate 50 mg 03/17/24 09:00 03/26/24 08:45 Metoprolol Tartrate 50 Mg Tablet PO 03/17/25 08:59 50 mg BID MARIELOS Administration Oxycodone/Acetaminophen 1 tab 03/16/24 14:00 03/26/24 08:45 Oxycodone/Acetaminophen 5-325 Mg Tablet PO 1 tab Q6HR PRN Administration pain Pantoprazole Sodium 40 mg 03/17/24 09:00 03/26/24 08:45 Pantoprazole 40 Mg Tablet. PO 03/17/25 08:59 40 mg DAILY MARIELOS Administration Sennosides 2 tab 03/17/24 12:00 03/25/24 07:43 Sennosides 8.6 Mg Tablet PO 03/17/25 11:59 2 tab DAILY@12 PRN Administration If no BM in 2 days Sodium Chloride 0 ml 03/16/24 13:09 Sodium Chloride 0.9 % 10 Ml Syringe IV-PUSH 03/16/25 13:08 PRN PRN Flush Assessment/Plan Assessment/Plan (1) S/P lumbar fusion: Plan: PT to improve pt's strength, endurance, bed mobility, transfers (sit-stand), standing balance, gait quality on level surfaces and stairs, coordination and functional ADL skills. Will also work to improve pt's safety awareness during transfers and ambulation. OT for basic ADL re-training (bathing, dressing, toileting, continence, grooming, feeding, transferring), to increase activity tolerance and functional mobility and to evaluate for adaptive and assistive devices. Will work to improve pt's endurance and educate pt on fall prevention and energy conservationtechniques-pacing strategies and proper breathing techniques during functional tasks. Patient education Pressure ulcer prophylaxis; encourage mobilization, frequent postural changes, pressure-relief techniques DVT prophylaxis Encourage deep breathing exercise incentive spirometry. Monitor bladder. Toileting schedule. Continue current bladder management, with scans as needed and CIC if needed. Start bowel care program every day to obtain continence, prevent ileus. Maintain fall precautions Gait and balance retraining Provision of the necessary gait aids and functional adaptive equipment to enhance the patient's a functional judaism Encourage deep breathing exercises and incentive spirometry RD evaluation Ensure adequate nutrition and hydration Discharge planning. (2) Impaired mobility and activities of daily living: (3) Hypertension: (4) Hyperlipemia: (5) Diabetes mellitus: (6) Lumbar stenosis: (7) CKD (chronic kidney disease): Plan Patient is a 78-year-old male with past medical history of back pain due to lumbar stenosis, radiculopathy, who recently underwent old L3-L4 hardware removal, L2 S1 decompression and L2-L5 fusion by Dr. Weiss. * Ambulatory 300' and now able to do some stairs with assist. * Agreeable to home Saturday 03/31 so that family can have necessary arrangements in place for safe discharge. * Weaned to room air * Hematuria resolved, afebrile. Patient education Pressure ulcer prophylaxis; encourage mobilization, frequent postural changes, pressure-relief techniques DVT prophylaxis Encourage deep breathing exercise incentive spirometry. Monitor bladder. Toileting schedule. Continue current bladder management, with scans as needed and CIC if needed. Start bowel care program every day to obtain continence, prevent ileus. Maintain fall precautions Gait and balance retraining Functional training and self-care and home management, including activities of daily living and instrumental activities of daily living Provision of the necessary gait aids and functional adaptive equipment to enhance the patient's a functional judaism Ensure adequate nutrition and hydration Sleep no issues Pain: Continue current regimen Discharge planning: Home 03/31. I spent 25 minutes for services, including [id number] encounter with the patient, discussion of the case, plan of care, and exam; and [id number] activities, such as reviewing pertinent it consultant documentation, recent therapynotes, laboratory and radiology studies, and discussion of case with care team including physician, nursing, wrapper caser, and therapists. More than 50 % of time was spent on patient/family counseling or coordination ofcare. Documented By: Albert Swan MD 03/26/24 1033 Signed By: <Electronically signed by Albert Swan MD> 03/26/24 1040 [facility] Work Phone: [phone] 600-951407-24-2024 Progress note Author Clara De La Torre [facility] March 26, 2024 7:01am Note Date/Time March 25, 2024 4:38 pm [facility] [address] [place] [address] Hospitalist Progress Note Signed Patient: Bishnu Love MR#: [id number] : 1945 Acct:[id number] Age/Sex: 78 / M Adm Date: 4 Loc: Room: [address] [place] [address] Type: ADM IN Attending Dr: Albert Swan MD Copies to: ~ Date of Service: 03/25/2024 Subjective Subjective Narrative: Seen and examined on follow-up. Resting comfortably in bed, reports that he continues to do well with physical therapy and is scheduled to discharge home next Sunday.Currently he reports slight soreness along the incision line to his lower mid back which is clean dry and intact. Denies any numbness or tingling. Vital signs reviewed, blood pressure well-controlled. On room air, denies coughing, fever or chills. Remains afebrile Exam Physical Exam Vital Signs: Temp Pulse Resp BP Pulse Ox O2 Del Method 98.4 F 81 16 145/68 H 98 Room Air 03/25/24 16:00 03/25/24 16:00 03/25/24 16:00 03/25/24 16:00 03/25/24 16:00 03/25/24 16:00 Narrative: CONST-alert, awake resting comfortably in bed CARDIAC-normal rate, regular rhythm, normal S1 & S2. PULM-diminished without wheeze or rhonchi, RA, no accessory muscle use or cough noted ABD - Soft. Bowel sounds are normal. Obese, no tenderness EXTREM-no edema BLE calves nontender SKIN-incision site to mid lower back, well-approximated, dry clean and intact Objective Lab Results 03/23/24 05:08 03/23/24 05:08 Meds Allergies and Active Meds Allergies cephalexin [From Keflex] Adverse Reaction (Mild, Verified 03/18/24 18:59) Itching Active Meds: Active Medications Generic Name Dose Route Start Last Admin Trade Name Freq PRN Reason Stop Dose Admin Acetaminophen 500 mg 03/16/24 13:09 03/20/24 09:56 Acetaminophen 500 Mg Tablet PO 03/16/25 13:08 500 mg Q4H PRN Administration Pain Al Hydrox/Mg Hydrox/Simethicone 30 ml 03/16/24 13:09 Mag Hydrox/Al Hydrox/Simeth 30 Ml Udc PO 03/16/25 13:08 Q4H PRN Indigestion Albuterol/Ipratropium 3 ml 03/18/24 11:34 Ipratropium/Albuterol 0.5-3 Mg 3 Ml Ampul.Neb INHALATION 03/17/25 19:59 QID.RESP PRN Wheezing Atorvastatin Calcium 10 mg 03/16/24 22:00 03/24/24 22:02 Atorvastatin 10 Mg Tablet PO 03/16/25 21:59 10 mg QHS MARIELOS Administration Bisacodyl 10 mg 03/16/24 13:09 Bisacodyl 10 Mg Supp.Rect PA 03/16/25 13:08 DAILY PRN Constipation Cyclobenzaprine HCl 10 mg 03/16/24 13:07 03/20/24 20:15 Cyclobenzaprine 10 Mg Tablet PO 03/16/25 13:06 10 mg TID PRN Administration muscle spasm Diphenhydramine HCl 25 mg 03/18/24 18:43 03/20/24 20:15 Diphenhydramine 25 Mg Capsule PO 03/18/25 18:42 25 mg Q4H PRN Administration Itching Docusate Sodium 100 mg 03/16/24 13:09 03/25/24 07:44 Docusate 100 Mg Capsule PO 03/16/25 13:08 100 mg BID PRN Administration Constipation Docusate Sodium 283 mg 03/16/24 13:09 Docusate Enema 283 Mg/5 Ml Enema PA 03/16/25 13:08 DAILY PRN Constipation Enoxaparin Sodium 40 mg 03/19/24 10:00 03/25/24 07:44 Enoxaparin 40 Mg/0.4 Ml Syringe SUBCUT 03/19/25 09:59 40 mg DAILY@1000 MARIELOS Administration Ferrous Sulfate 324 mg 03/20/24 09:00 03/24/24 08:28 Ferrous Sulfate 324 Mg Tablet.Dr PO 03/20/25 08:59 324 mg Q48HR MARIELOS Administration Glimepiride 1 mg 03/17/24 08:00 03/25/24 07:43 Glimepiride 1 Mg Tablet PO 03/17/25 07:59 1 mg DAILY.WITH.BKFAST MARIELOS Administration Guaifenesin 600 mg 03/17/24 17:20 03/19/24 21:32 Guaifenesin 600 Mg Tab.Er.12h PO 03/17/25 17:19 600 mg BID PRN Administration Congestion Lactulose 30 gm 03/16/24 13:09 Lactulose 20 Gm/30 Ml Udc PO 03/16/25 13:08 DAILY PRN Constipation Lisinopril 20 mg 03/23/24 09:00 03/25/24 07:43 Lisinopril 20 Mg Tablet PO 03/23/25 08:59 20 mg DAILY MARIELOS Administration Melatonin 10 mg 03/22/24 22:00 03/24/24 22:02 Melatonin 5 Mg Tablet PO 03/22/25 21:59 10 mg QHS MARIELOS Administration Metoprolol Tartrate 50 mg 03/17/24 09:00 03/25/24 07:43 Metoprolol Tartrate 50 Mg Tablet PO 03/17/25 08:59 50 mg BID MARIELOS Administration Oxycodone/Acetaminophen 1 tab 03/16/24 14:00 03/25/24 07:44 Oxycodone/Acetaminophen 5-325 Mg Tablet PO 1 tab Q6HR PRN Administration pain Pantoprazole Sodium 40 mg 03/17/24 09:00 03/25/24 07:43 Pantoprazole 40 Mg Tablet. PO 03/17/25 08:59 40 mg DAILY MARIELOS Administration Sennosides 2 tab 03/17/24 12:00 03/25/24 07:43 Sennosides 8.6 Mg Tablet PO 03/17/25 11:59 2 tab DAILY@12 PRN Administration If no BM in 2 days Sodium Chloride 0 ml 03/16/24 13:09 Sodium Chloride 0.9 % 10 Ml Syringe IV-PUSH 03/16/25 13:08 PRN PRN Flush A&P - Hospitalist Assessment/Plan (1) COVID: (2) Diabetes mellitus: (3) Hypertension: (4) S/P lumbar fusion: (5) Lumbar stenosis: (6) Hyperlipemia: (7) GERD (gastroesophageal reflux disease): (8) UTI (urinary tract infection), bacterial: Plan s/p L3-4 hardware removal, L2-S1 decompression, L2-5 fusion lumbar stenosis Postoperative anemia -POC per PMR team for rehabilitative therapy, pain control and bowel regimen, DVT prophylaxis, surgical wound care -Please defer any postoperative questions/concerns to Dr. Saint Conrad -Preop Hgb 12.4, trend labs, hemoglobin on 03/23, 9.4, continue iron supplements COVID-positive?asymptomatic 03/17. Repeat test on 03/24 negative Complicated Proteus mirabilis UTI * Completed 5 days of Levaquin Chronic conditions 1. Diabetes?glimepiride. Recent A1c 5.8. ACHS fingersticks, blood sugars reviewed, well-controlled 2. Hypertension?lisinopril, metoprolol. BPs reviewed, controlled 3. Hyperlipidemia?atorvastatin 4. GERD?pantoprazole Documented By: Vilma King APRN 03/25/24 1637 Signed By: <Electronically signed by RALPH King> 03/25/247 <Electronically signed by Clara De La Torre MD> 03/26/24 0701 [facility] Work Phone: 1(706) 562-507607-22-2024 Progress note Author Albert Swan [facility] March 24, 2024 8:01pm Note Date/Time March 24, 2024 6:58 pm [facility] [address] [place] [address] Physiatry(Rehab) Progress Note Signed Patient: Bishnu Love MR#: [id number] : 1945 Acct:[id number] Age/Sex: 78 / M Adm Date: 4 Loc: Room: [address] [place] [address] Type: ADM IN Attending Dr: Albert Swan MD Copies to: ~ Date of Service: 03/24/2024 Subjective Subjective Narrative: Mr. Love is a 78 year old male presenting to acute inpatient rehab with functional impairments s/p lumbar fusion. Patient presented with complaints of constant low back pain and radicular symptoms. Has had pain in both legs, although mostly on the left side, associated with weakness. He has chronic back pain which recently gotten progressively worse. History of prior remote laminectomy and L4-L5 fusion. MRIof the lumbar spine demonstrated L4-5 posterior decompression and fusion, degenerative disc disease at L2-3 L4 with mass effect on existing L4 nerve root L2-L3 degenerative changes. Patient was recommended surgical treatment. Underwent L4-L5 hardware removal with L2-S1 decompression and fusion L2-L5. Postoperatively had a creatinine elevation up to 2.2 on 03/13, trending down. He was evaluated by PT and OT services and recommended acute rehab for strengthening. Interval History: Doing well. Hematuria resolved. Vitals are stable. Left leg strength is improving. Discussed d/c home shortly, likely end of week. Review of Systems Review of Systems All other systems reviewed & are negative unless noted below or in HPI Exam Physical Exam Vital Signs: Temp Pulse Resp BP Pulse Ox O2 Del Method 98.3 F 83 20 143/82 H 98 Room Air 03/24/24 17:31 03/24/24 17:31 03/24/24 17:31 03/24/24 17:31 03/24/24 17:31 03/24/24 17:31 Narrative: General: Awake, alert, oriented x3 HENT: Normal to inspection, normocephalic, atraumatic Eyes: PERRL, normal conjunctiva and sclera Neck: Normal ROM, normal visual inspection. Trachea midline. Cardio: Regular heart rate and rhythm Respiratory: Clear to auscultation bilaterally. Normal respiratory effort. No respiratory distress. GI: Abdomen soft, nontender, nondistended, active bowel sounds x4 quadrants Neuro: CN II-XII intact. Strength 5/5, equal bilaterally. Neurosensory intact. Extremities: No edema, erythema, cyanosis Psych: Mood and affect appropriate. Normal speech. Objective Labs 03/23/24 05:08 03/23/24 05:08 Labs: Laboratory Results - last 24 hr 03/23/24 03/24/24 03/24/24 21:41 08:07 11:21 POC Glucose 163 146 149 POC Glucose Comment Glu2: cleaned meter COVID-19 PCR Interp 03/24/24 03/24/24 16:35 18:30 POC Glucose 117 POC Glucose Comment Glu2: cleaned meter COVID-19 PCR Interp N/A Medications and Allergies Allergies and Active Meds: Allergies cephalexin [From Keflex] Adverse Reaction (Mild, Verified 03/18/24 18:59) Itching Active Medications Generic Name Dose Route Start Last Admin Trade Name Freq PRN Reason Stop Dose Admin Acetaminophen 500 mg 03/16/24 13:09 03/20/24 09:56 Acetaminophen 500 Mg Tablet PO 03/16/25 13:08 500 mg Q4H PRN Administration Pain Al Hydrox/Mg Hydrox/Simethicone 30 ml 03/16/24 13:09 Mag Hydrox/Al Hydrox/Simeth 30 Ml Udc PO 03/16/25 13:08 Q4H PRN Indigestion Albuterol/Ipratropium 3 ml 03/18/24 11:34 Ipratropium/Albuterol 0.5-3 Mg 3 Ml Ampul.Neb INHALATION 03/17/25 19:59 QID.RESP PRN Wheezing Atorvastatin Calcium 10 mg 03/16/24 22:00 03/23/24 21:42 Atorvastatin 10 Mg Tablet PO 03/16/25 21:59 10 mg QHS MARIELOS Administration Bisacodyl 10 mg 03/16/24 13:09 Bisacodyl 10 Mg Supp.Rect PA 03/16/25 13:08 DAILY PRN Constipation Cyclobenzaprine HCl 10 mg 03/16/24 13:07 03/20/24 20:15 Cyclobenzaprine 10 Mg Tablet PO 03/16/25 13:06 10 mg TID PRN Administration muscle spasm Diphenhydramine HCl 25 mg 03/18/24 18:43 03/20/24 20:15 Diphenhydramine 25 Mg Capsule PO 03/18/25 18:42 25 mg Q4H PRN Administration Itching Docusate Sodium 100 mg 03/16/24 13:09 03/19/24 05:18 Docusate 100 Mg Capsule PO 03/16/25 13:08 100 mg BID PRN Administration Constipation Docusate Sodium 283 mg 03/16/24 13:09 Docusate Enema 283 Mg/5 Ml Enema PA 03/16/25 13:08 DAILY PRN Constipation Enoxaparin Sodium 40 mg 03/19/24 10:00 03/24/24 08:28 Enoxaparin 40 Mg/0.4 Ml Syringe SUBCUT 03/19/25 09:59 40 mg DAILY@1000 MARIELOS Administration Ferrous Sulfate 324 mg 03/20/24 09:00 03/24/24 08:28 Ferrous Sulfate 324 Mg Tablet.Dr PO 03/20/25 08:59 324 mg Q48HR MARIELOS Administration Glimepiride 1 mg 03/17/24 08:00 03/24/24 08:28 Glimepiride 1 Mg Tablet PO 03/17/25 07:59 1 mg DAILY.WITH.BKFAST MARIELOS Administration Guaifenesin 600 mg 03/17/24 17:20 03/19/24 21:32 Guaifenesin 600 Mg Tab.Er.12h PO 03/17/25 17:19 600 mg BID PRN Administration Congestion Lactulose 30 gm 03/16/24 13:09 Lactulose 20 Gm/30 Ml Udc PO 03/16/25 13:08 DAILY PRN Constipation Lisinopril 20 mg 03/23/24 09:00 03/24/24 08:27 Lisinopril 20 Mg Tablet PO 03/23/25 08:59 20 mg DAILY MARIELOS Administration Melatonin 10 mg 03/22/24 22:00 03/23/24 21:42 Melatonin 5 Mg Tablet PO 03/22/25 21:59 10 mg QHS MARIELOS Administration Metoprolol Tartrate 50 mg 03/17/24 09:00 03/24/24 08:28 Metoprolol Tartrate 50 Mg Tablet PO 03/17/25 08:59 50 mg BID MARIELOS Administration Oxycodone/Acetaminophen 1 tab 03/16/24 14:00 03/23/24 21:42 Oxycodone/Acetaminophen 5-325 Mg Tablet PO 1 tab Q6HR PRN Administration pain Pantoprazole Sodium 40 mg 03/17/24 09:00 03/24/24 08:28 Pantoprazole 40 Mg Tablet. PO 03/17/25 08:59 40 mg DAILY MARIELOS Administration Sennosides 2 tab 03/17/24 12:00 03/19/24 05:18 Sennosides 8.6 Mg Tablet PO 03/17/25 11:59 2 tab DAILY@12 PRN Administration If no BM in 2 days Sodium Chloride 0 ml 03/16/24 13:09 Sodium Chloride 0.9 % 10 Ml Syringe IV-PUSH 03/16/25 13:08 PRN PRN Flush Assessment/Plan Assessment/Plan (1) S/P lumbar fusion: Plan: PT to improve pt's strength, endurance, bed mobility, transfers (sit-stand), standing balance, gait quality on level surfaces and stairs, coordination and functional ADL skills. Will also work to improve pt's safety awareness during transfers and ambulation. OT for basic ADL re-training (bathing, dressing, toileting, continence, grooming, feeding, transferring), to increase activity tolerance and functional mobility and to evaluate for adaptive and assistive devices. Will work to improve pt's endurance and educate pt on fall prevention and energy conservationtechniques-pacing strategies and proper breathing techniques during functional tasks. Patient education Pressure ulcer prophylaxis; encourage mobilization, frequent postural changes, pressure-relief techniques DVT prophylaxis Encourage deep breathing exercise incentive spirometry. Monitor bladder. Toileting schedule. Continue current bladder management, with scans as needed and CIC if needed. Start bowel care program every day to obtain continence, prevent ileus. Maintain fall precautions Gait and balance retraining Provision of the necessary gait aids and functional adaptive equipment to enhance the patient's a functional judaism Encourage deep breathing exercises and incentive spirometry RD evaluation Ensure adequate nutrition and hydration Discharge planning. (2) Impaired mobility and activities of daily living: (3) Hypertension: (4) Hyperlipemia: (5) Diabetes mellitus: (6) Lumbar stenosis: (7) CKD (chronic kidney disease): (8) COVID-19: Plan Patient is a 78-year-old male with past medical history of back pain due to lumbar stenosis, radiculopathy, who recently underwent old L3-L4 hardware removal, L2 S1 decompression and L2-L5 fusion by Dr. Weiss. * Continues to improve. * Ambulatory 280'. Needs to do stairs for discharge. * Completed abx for UTI. * Labs reviewed and stable. Patient education Pressure ulcer prophylaxis; encourage mobilization, frequent postural changes, pressure-relief techniques DVT prophylaxis Encourage deep breathing exercise incentive spirometry. Monitor bladder. Toileting schedule. Continue current bladder management, with scans as needed and CIC if needed. Start bowel care program every day to obtain continence, prevent ileus. Maintain fall precautions Gait and balance retraining Functional training and self-care and home management, including activities of daily living and instrumental activities of daily living Provision of the necessary gait aids and functional adaptive equipment to enhance the patient's a functional judaism Ensure adequate nutrition and hydration Sleep no issues Pain: Continue current regimen Discharge planning: Home end of week v early next. I spent 26 minutes for services, including [id number] encounter with the patient, discussion of the case, plan of care, and exam; and [id number] activities, such as reviewing pertinent it consultant documentation, recent therapynotes, laboratory and radiology studies, and discussion of case with care team including physician, nursing, wrapper caser, and therapists. More than 50 % of time was spent on patient/family counseling or coordination ofcare. Documented By: Albert Swan MD 03/24/24 4940 Signed By: <Electronically signed by Albert Swan MD> 03/24/242000 [facility] Work Phone: 1(585) 416-613207-22-2024 Progress note Author Albert Swan [facility] March 24, 2024 1:12pm Note Date/Time March 22, 2024 11:1 8am [facility] [address] [place] [address] Physiatry(Rehab) Progress Note Signed Patient: Bishnu Love MR#: [id number] : 1945 Acct:[id number] Age/Sex: 78 / M Adm Date: 4 Loc: Room: 9F6647-8 Type: ADM IN Attending Dr: Albert Swan MD Copies to: ~ Date of Service: 03/22/2024 Subjective Subjective Narrative: Mr. Love is a 78 year old male presenting to acute inpatient rehab with functional impairments s/p lumbar fusion. Patient presented with complaints of constant low back pain and radicular symptoms. Has had pain in both legs, although mostly on the left side, associated with weakness. He has chronic back pain which recently gotten progressively worse. History of prior remote laminectomy and L4-L5 fusion. MRIof the lumbar spine demonstrated L4-5 posterior decompression and fusion, degenerative disc disease at L2-3 L4 with mass effect on existing L4 nerve root L2-L3 degenerative changes. Patient was recommended surgical treatment. Underwent L4-L5 hardware removal with L2-S1 decompression and fusion L2-L5. Postoperatively had a creatinine elevation up to 2.2 on 03/13, trending down. He was evaluated by PT and OT services and recommended acute rehab for strengthening. Interval History: Patient was examined in his room while resting in bed. He has not been sleepingwell for the past couple nights. Agreeable to some melatonin at bedtime. Otherwise he is doing well. No major concerns or complaints. Maintaining stable vitals. His pain is very mild today. Still with some weakness in the left lower extremity, although gradually improving. No cardiopulmonary complaints except for occasional mild cough. SpO2's remain in high 90s on room air. Doing well in PT. Walking 230 feet with CGA using a wheeled walker. Contact- guard assist/SBA with bed mobility/transfers. Review of Systems Review of Systems All other systems reviewed & are negative unless noted below or in HPI Exam Physical Exam Vital Signs: Temp Pulse Resp BP Pulse Ox O2 Del Method 98.1 F 82 16 156/84 H 96 Room Air 03/22/24 05:00 03/22/24 05:00 03/22/24 05:00 03/22/24 05:00 03/22/24 05:00 03/22/24 07:30 Narrative: General: Awake, alert, oriented x3 HENT: Normal to inspection, normocephalic, atraumatic Eyes: PERRL, normal conjunctiva and sclera Neck: Normal ROM, normal visual inspection. Trachea midline. Cardio: Regular heart rate and rhythm Respiratory: Clear to auscultation bilaterally. Normal respiratory effort. No respiratory distress. GI: Abdomen soft, nontender, nondistended, active bowel sounds x4 quadrants Neuro: CN II-XII intact. Strength 5/5, equal bilaterally. Neurosensory intact. Extremities: No edema, erythema, cyanosis Psych: Mood and affect appropriate. Normal speech. Objective Labs 03/20/24 05:15 03/20/24 08:02 Labs: Laboratory Results - last 24 hr 03/21/24 03/21/24 03/21/24 11:10 16:17 20:06 POC Glucose 178 117 222 POC Glucose Comment Glu2: cleaned meter Glu2: cleaned meter 03/22/24 06:37 POC Glucose 125 POC Glucose Comment Additional Results Results Comments: I reviewed clinical lab tests, radiology reports and obtained and summated medical records and have ordered follow up lab tests and imaging studies as needed for rehabilitation care. Medications and Allergies Allergies and Active Meds: Allergies cephalexin [From [employer]] Adverse Reaction (Mild, Verified 03/18/24 18:59) Itching Active Medications Generic Name Dose Route Start Last Admin Trade Name Freq PRN Reason Stop Dose Admin Acetaminophen 500 mg 03/16/24 13:09 03/20/24 09:56 Acetaminophen 500 Mg Tablet PO 03/16/25 13:08 500 mg Q4H PRN Administration Pain Al Hydrox/Mg Hydrox/Simethicone 30 ml 03/16/24 13:09 Mag Hydrox/Al Hydrox/Simeth 30 Ml Udc PO 03/16/25 13:08 Q4H PRN Indigestion Albuterol/Ipratropium 3 ml 03/18/24 11:34 Ipratropium/Albuterol 0.5-3 Mg 3 Ml Ampul.Neb INHALATION 03/17/25 19:59 QID.RESP PRN Wheezing Atorvastatin Calcium 10 mg 03/16/24 22:00 03/21/24 20:28 Atorvastatin 10 Mg Tablet PO 03/16/25 21:59 10 mg QHS MARIELOS Administration Bisacodyl 10 mg 03/16/24 13:09 Bisacodyl 10 Mg Supp.Rect PA 03/16/25 13:08 DAILY PRN Constipation Cyclobenzaprine HCl 10 mg 03/16/24 13:07 03/20/24 20:15 Cyclobenzaprine 10 Mg Tablet PO 03/16/25 13:06 10 mg TID PRN Administration muscle spasm Diphenhydramine HCl 25 mg 03/18/24 18:43 03/20/24 20:15 Diphenhydramine 25 Mg Capsule PO 03/18/25 18:42 25 mg Q4H PRN Administration Itching Docusate Sodium 100 mg 03/16/24 13:09 03/19/24 05:18 Docusate 100 Mg Capsule PO 03/16/25 13:08 100 mg BID PRN Administration Constipation Docusate Sodium 283 mg 03/16/24 13:09 Docusate Enema 283 Mg/5 Ml Enema PA 03/16/25 13:08 DAILY PRN Constipation Enoxaparin Sodium 40 mg 03/19/24 10:00 03/22/24 10:07 Enoxaparin 40 Mg/0.4 Ml Syringe SUBCUT 03/19/25 09:59 Not Given DAILY@1000 MARIELOS Ferrous Sulfate 324 mg 03/20/24 09:00 03/22/24 08:30 Ferrous Sulfate 324 Mg Tablet.Dr PO 03/20/25 08:59 324 mg Q48HR MARIELOS Administration Glimepiride 1 mg 03/17/24 08:00 03/22/24 08:29 Glimepiride 1 Mg Tablet PO 03/17/25 07:59 1 mg DAILY.WITH.BKFAST MARIELOS Administration Guaifenesin 600 mg 03/17/24 17:20 03/19/24 21:32 Guaifenesin 600 Mg Tab.Er.12h PO 03/17/25 17:19 600 mg BID PRN Administration Congestion Lactulose 30 gm 03/16/24 13:09 Lactulose 20 Gm/30 Ml Udc PO 03/16/25 13:08 DAILY PRN Constipation Levofloxacin 750 mg 03/20/24 21:00 03/20/24 20:16 Levofloxacin 750 Mg Tablet PO 750 mg Q48H MARIELOS Administration Lisinopril 20 mg 03/23/24 09:00 Lisinopril 20 Mg Tablet PO 03/23/25 08:59 DAILY MARIELOS Melatonin 10 mg 03/22/24 22:00 Melatonin 5 Mg Tablet PO 03/22/25 21:59 QHS MARIELOS Metoprolol Tartrate 50 mg 03/17/24 09:00 03/22/24 08:30 Metoprolol Tartrate 50 Mg Tablet PO 03/17/25 08:59 50 mg BID MARIELOS Administration Oxycodone/Acetaminophen 1 tab 03/16/24 14:00 03/22/24 08:29 Oxycodone/Acetaminophen 5-325 Mg Tablet PO 1 tab Q6HR PRN Administration pain Pantoprazole Sodium 40 mg 03/17/24 09:00 03/22/24 08:29 Pantoprazole 40 Mg Tablet. PO 03/17/25 08:59 40 mg DAILY MARIELOS Administration Sennosides 2 tab 03/17/24 12:00 03/19/24 05:18 Sennosides 8.6 Mg Tablet PO 03/17/25 11:59 2 tab DAILY@12 PRN Administration If no BM in 2 days Sodium Chloride 0 ml 03/16/24 13:09 Sodium Chloride 0.9 % 10 Ml Syringe IV-PUSH 03/16/25 13:08 PRN PRN Flush Assessment/Plan Assessment/Plan (1) S/P lumbar fusion: Plan: PT to improve pt's strength, endurance, bed mobility, transfers (sit-stand), standing balance, gait quality on level surfaces and stairs, coordination and functional ADL skills. Will also work to improve pt's safety awareness during transfers and ambulation. OT for basic ADL re-training (bathing, dressing, toileting, continence, grooming, feeding, transferring), to increase activity tolerance and functional mobility and to evaluate for adaptive and assistive devices. Will work to improve pt's endurance and educate pt on fall prevention and energy conservationtechniques-pacing strategies and proper breathing techniques during functional tasks. Patient education Pressure ulcer prophylaxis; encourage mobilization, frequent postural changes, pressure-relief techniques DVT prophylaxis Encourage deep breathing exercise incentive spirometry. Monitor bladder. Toileting schedule. Continue current bladder management, with scans as needed and CIC if needed. Start bowel care program every day to obtain continence, prevent ileus. Maintain fall precautions Gait and balance retraining Provision of the necessary gait aids and functional adaptive equipment to enhance the patient's a functional judaism Encourage deep breathing exercises and incentive spirometry RD evaluation Ensure adequate nutrition and hydration Discharge planning. (2) Impaired mobility and activities of daily living: (3) Hypertension: (4) Hyperlipemia: (5) Diabetes mellitus: (6) Lumbar stenosis: (7) CKD (chronic kidney disease): (8) COVID-19: Plan Patient is a 78-year-old male with past medical history of back pain due to lumbar stenosis, radiculopathy, who recently underwent old L3-L4 hardware removal, L2 S1 decompression and L2-L5 fusion by Dr. Weiss. * Add melatonin 10 mg at bedtime for insomnia. * No further symptoms, no hematuria. Lovenox was resumed. * Overall improving in therapy. Walking functional distances with a walker. Still with some mild weakness in the left lower extremity, although much improved. Patient education Pressure ulcer prophylaxis; encourage mobilization, frequent postural changes, pressure-relief techniques DVT prophylaxis Encourage deep breathing exercise incentive spirometry. Monitor bladder. Toileting schedule. Continue current bladder management, with scans as needed and CIC if needed. Start bowel care program every day to obtain continence, prevent ileus. Maintain fall precautions Gait and balance retraining Functional training and self-care and home management, including activities of daily living and instrumental activities of daily living Provision of the necessary gait aids and functional adaptive equipment to enhance the patient's a functional judaism Ensure adequate nutrition and hydration Sleep no issues Pain: Continue current regimen Discharge planning: Home alone in 7 to 10 days. I spent 21 minutes for services, including [id number] encounter with the patient, discussion of the case, plan of care, and exam; and [id number] activities, such as reviewing pertinent it consultant documentation, recent therapynotes, laboratory and radiology studies, and discussion of case with care team including physician, nursing, wrapper caser, and therapists. More than 50 % of time was spent on patient/family counseling or coordination ofcare. <Statement entered by Albert Swan MD - 03/24/24 13:12> This documentation has been reviewed and approved. I reviewed the history and the relevant portions of the chart, including currentorders, allied health and it consultant notes, labs/imaging and plan of care as above. Documented By: Glendy Calabrese APRN 03/22/24 1 118 Signed By: <Electronically signed by RALPH Calabrese> 03/22/24 1122 <Electronically signed by Albert Swan MD> 03/24/24 1312 [facility] Work Phone: 1(447) 787-328107-22-2024 Progress note Author Albert Swan [facility] March 24, 2024 1:12pm Note Date/Time March 24, 2024 12:0 7pm [facility] [address] [place] [address] Physiatry(Rehab) Progress Note Signed Patient: Bishnu Love MR#: [id number] : 1945 Acct:[id number] Age/Sex: 78 / M Adm Date: 4 Loc: Room: 4F0567-3 Type: ADM IN Attending Dr: Albert Swan MD Copies to: ~ Date of Service: 03/24/2024 Subjective Subjective Narrative: Mr. Love is a 78 year old male presenting to acute inpatient rehab with functional impairments s/p lumbar fusion. Patient presented with complaints of constant low back pain and radicular symptoms. Has had pain in both legs, although mostly on the left side, associated with weakness. He has chronic back pain which recently gotten progressively worse. History of prior remote laminectomy and L4-L5 fusion. MRIof the lumbar spine demonstrated L4-5 posterior decompression and fusion, degenerative disc disease at L2-3 L4 with mass effect on existing L4 nerve root L2-L3 degenerative changes. Patient was recommended surgical treatment. Underwent L4-L5 hardware removal with L2-S1 decompression and fusion L2-L5. Postoperatively had a creatinine elevation up to 2.2 on 03/13, trending down. He was evaluated by PT and OT services and recommended acute rehab for strengthening. Interval History: Patient was evaluated in his room while resting in bed. He is alert, pleasant, oriented. Offers no concerns or complaints. Slept better with medication adjustment. He has no pain or discomfort, weakness to the left lower extremity is unchanged. His vitals are WNL. He is requesting to be checked for COVID again as he believes the result was false positive . He did have some cough last week, this have resolved though. He is doing very well functionally. Ambulatory 245 feet with a wheeled walker and CGA/SBA. Requires CGA with transfers. Review of Systems Review of Systems All other systems reviewed & are negative unless noted below or in HPI Exam Physical Exam Vital Signs: Temp Pulse Resp BP Pulse Ox O2 Del Method 98.1 F 84 18 117/60 94 L Room Air 03/24/24 04:03/24/24 04:03/24/24 04:03/24/24 04:03/24/24 04:03/24/24 10:12 Narrative: General: Awake, alert, oriented x3 HENT: Normal to inspection, normocephalic, atraumatic Eyes: PERRL, normal conjunctiva and sclera Neck: Normal ROM, normal visual inspection. Trachea midline. Cardio: Regular heart rate and rhythm Respiratory: Clear to auscultation bilaterally. Normal respiratory effort. No respiratory distress. GI: Abdomen soft, nontender, nondistended, active bowel sounds x4 quadrants Neuro: CN II-XII intact. Strength 5/5, equal bilaterally. Neurosensory intact. Extremities: No edema, erythema, cyanosis Psych: Mood and affect appropriate. Normal speech. Objective Labs 03/23/24 05:08 03/23/24 05:08 Labs: Laboratory Results - last 24 hr 03/23/24 03/23/24 03/24/24 16:10 21:41 08:07 POC Glucose 158 163 146 POC Glucose Comment Glu2: cleaned meter Glu2: cleaned meter 03/24/24 11:21 POC Glucose 149 POC Glucose Comment Additional Results Results Comments: I reviewed clinical lab tests, radiology reports and obtained and summated medical records and have ordered follow up lab tests and imaging studies as needed for rehabilitation care. Medications and Allergies Allergies and Active Meds: Allergies cephalexin [From [employer]] Adverse Reaction (Mild, Verified 03/18/24 18:59) Itching Active Medications Generic Name Dose Route Start Last Admin Trade Name Freq PRN Reason Stop Dose Admin Acetaminophen 500 mg 03/16/24 13:09 03/20/24 09:56 Acetaminophen 500 Mg Tablet PO 03/16/25 13:08 500 mg Q4H PRN Administration Pain Al Hydrox/Mg Hydrox/Simethicone 30 ml 03/16/24 13:09 Mag Hydrox/Al Hydrox/Simeth 30 Ml Udc PO 03/16/25 13:08 Q4H PRN Indigestion Albuterol/Ipratropium 3 ml 03/18/24 11:34 Ipratropium/Albuterol 0.5-3 Mg 3 Ml Ampul.Neb INHALATION 03/17/25 19:59 QID.RESP PRN Wheezing Atorvastatin Calcium 10 mg 03/16/24 22:00 03/23/24 21:42 Atorvastatin 10 Mg Tablet PO 03/16/25 21:59 10 mg QHS MARIELOS Administration Bisacodyl 10 mg 03/16/24 13:09 Bisacodyl 10 Mg Supp.Rect PA 03/16/25 13:08 DAILY PRN Constipation Cyclobenzaprine HCl 10 mg 03/16/24 13:07 03/20/24 20:15 Cyclobenzaprine 10 Mg Tablet PO 03/16/25 13:06 10 mg TID PRN Administration muscle spasm Diphenhydramine HCl 25 mg 03/18/24 18:43 03/20/24 20:15 Diphenhydramine 25 Mg Capsule PO 03/18/25 18:42 25 mg Q4H PRN Administration Itching Docusate Sodium 100 mg 03/16/24 13:09 03/19/24 05:18 Docusate 100 Mg Capsule PO 03/16/25 13:08 100 mg BID PRN Administration Constipation Docusate Sodium 283 mg 03/16/24 13:09 Docusate Enema 283 Mg/5 Ml Enema PA 03/16/25 13:08 DAILY PRN Constipation Enoxaparin Sodium 40 mg 03/19/24 10:00 03/24/24 08:28 Enoxaparin 40 Mg/0.4 Ml Syringe SUBCUT 03/19/25 09:59 40 mg DAILY@1000 MARIELOS Administration Ferrous Sulfate 324 mg 03/20/24 09:00 03/24/24 08:28 Ferrous Sulfate 324 Mg Tablet.Dr PO 03/20/25 08:59 324 mg Q48HR MARIELOS Administration Glimepiride 1 mg 03/17/24 08:00 03/24/24 08:28 Glimepiride 1 Mg Tablet PO 03/17/25 07:59 1 mg DAILY.WITH.BKFAST MARIELOS Administration Guaifenesin 600 mg 03/17/24 17:20 03/19/24 21:32 Guaifenesin 600 Mg Tab.Er.12h PO 03/17/25 17:19 600 mg BID PRN Administration Congestion Lactulose 30 gm 03/16/24 13:09 Lactulose 20 Gm/30 Ml Udc PO 03/16/25 13:08 DAILY PRN Constipation Levofloxacin 750 mg 03/24/24 11:30 Levofloxacin 750 Mg Tablet PO 03/28/24 09:01 DAILY MARIELOS Lisinopril 20 mg 03/23/24 09:00 03/24/24 08:27 Lisinopril 20 Mg Tablet PO 03/23/25 08:59 20 mg DAILY MARIELOS Administration Melatonin 10 mg 03/22/24 22:00 03/23/24 21:42 Melatonin 5 Mg Tablet PO 03/22/25 21:59 10 mg QHS MARIELOS Administration Metoprolol Tartrate 50 mg 03/17/24 09:00 07/22/24 08:28 Metoprolol Tartrate 50 Mg Tablet PO 03/17/25 08:59 50 mg BID MARIELOS Administration Oxycodone/Acetaminophen 1 tab 03/16/24 14:00 03/23/24 21:42 Oxycodone/Acetaminophen 5-325 Mg Tablet PO 1 tab Q6HR PRN Administration pain Pantoprazole Sodium 40 mg 03/17/24 09:00 03/24/24 08:28 Pantoprazole 40 Mg Tablet. PO 03/17/25 08:59 40 mg DAILY MARIELOS Administration Sennosides 2 tab 03/17/24 12:00 03/19/24 05:18 Sennosides 8.6 Mg Tablet PO 03/17/25 11:59 2 tab DAILY@12 PRN Administration If no BM in 2 days Sodium Chloride 0 ml 03/16/24 13:09 Sodium Chloride 0.9 % 10 Ml Syringe IV-PUSH 03/16/25 13:08 PRN PRN Flush Assessment/Plan Assessment/Plan (1) S/P lumbar fusion: Plan: PT to improve pt's strength, endurance, bed mobility, transfers (sit-stand), standing balance, gait quality on level surfaces and stairs, coordination and functional ADL skills. Will also work to improve pt's safety awareness during transfers and ambulation. OT for basic ADL re-training (bathing, dressing, toileting, continence, grooming, feeding, transferring), to increase activity tolerance and functional mobility and to evaluate for adaptive and assistive devices. Will work to improve pt's endurance and educate pt on fall prevention and energy conservationtechniques-pacing strategies and proper breathing techniques during functional tasks. Patient education Pressure ulcer prophylaxis; encourage mobilization, frequent postural changes, pressure-relief techniques DVT prophylaxis Encourage deep breathing exercise incentive spirometry. Monitor bladder. Toileting schedule. Continue current bladder management, with scans as needed and CIC if needed. Start bowel care program every day to obtain continence, prevent ileus. Maintain fall precautions Gait and balance retraining Provision of the necessary gait aids and functional adaptive equipment to enhance the patient's a functional judaism Encourage deep breathing exercises and incentive spirometry RD evaluation Ensure adequate nutrition and hydration Discharge planning. (2) Impaired mobility and activities of daily living: (3) Hypertension: (4) Hyperlipemia: (5) Diabetes mellitus: (6) Lumbar stenosis: (7) CKD (chronic kidney disease): (8) COVID-19: Plan Patient is a 78-year-old male with past medical history of back pain due to lumbar stenosis, radiculopathy, who recently underwent old L3-L4 hardware removal, L2 S1 decompression and L2-L5 fusion by Dr. Weiss. * Patient has remains clinically stable. Offers no major complaints concerns. * Okay to repeat COVID PCR per patient request. At this time patient is asymptomatic. * Working with therapy and continues to improve. Likely home soon. Patient education Pressure ulcer prophylaxis; encourage mobilization, frequent postural changes, pressure-relief techniques DVT prophylaxis Encourage deep breathing exercise incentive spirometry. Monitor bladder. Toileting schedule. Continue current bladder management, with scans as needed and CIC if needed. Start bowel care program every day to obtain continence, prevent ileus. Maintain fall precautions Gait and balance retraining Functional training and self-care and home management, including activities of daily living and instrumental activities of daily living Provision of the necessary gait aids and functional adaptive equipment to enhance the patient's a functional judaism Ensure adequate nutrition and hydration Sleep no issues Pain: Continue current regimen Discharge planning: Home alone in 7 to 10 days. I spent 24 minutes for services, including qtxg-mr-[id number] encounter with the patient, discussion of the case, plan of care, and exam; and zkgpfup-pp-tulo activities, such as reviewing pertinent it consultant documentation, recent therapynotes, laboratory and radiology studies, and discussion of case with care team including physician, nursing, wrapper caser, and therapists. More than 50 % of time was spent on patient/family counseling or coordination ofcare. <Statement entered by Albert Swan MD - 03/24/24 13:12> This documentation has been reviewed and approved. Patient was personally seen by me, Dr. Swan, on the day of encounter, reviewed the history and the relevant portions of the chart, including current orders, allied health and it consultant notes, labs/imaging and performed sherman elements of exam and I formulated the plan of care and facilitated the medical decision making. I completed a substantive portion of this encounter, the medical decision makingportion of this note in its entirety, including Allied health note review, nursing note review, it consultant note review, discussion with nursing and case management, and more than 50% of my time was spent on counseling and coordination of care, time spent 30 minutes Documented By: Glendy Calabrese APRN 03/24/24 1 206 Signed By: <Electronically signed by RALPH Calabrese> 03/24/24 1211 <Electronically signed by Albert Swan MD> 03/24/24 1312 [facility] Work Phone: [phone]) 882-855607-19-2024 Progress note Author Camron Carpenter [facility] March 21, 2024 1:37pm Note Date/Time March 21, 2024 1:37 pm [facility] [address] [place] [address] Physiatry(Rehab) Progress Note Signed Patient: Bishnu Love MR#: [id number] : 1945 Acct:[id number] Age/Sex: 78 / M Adm Date: 4 Loc: Room: [address] [place] [address] Type: ADM IN Attending Dr: Albert Swan MD Copies to: ~ Date of Service: 03/21/2024 Subjective Subjective Narrative: Mr. Love is a 78 year old male presenting to acute inpatient rehab with functional impairments s/p lumbar fusion. Patient presented with complaints of constant low back pain and radicular symptoms. Has had pain in both legs, although mostly on the left side, associated with weakness. He has chronic back pain which recently gotten progressively worse. History of prior remote laminectomy and L4-L5 fusion. MRIof the lumbar spine demonstrated L4-5 posterior decompression and fusion, degenerative disc disease at L2-3 L4 with mass effect on existing L4 nerve root L2-L3 degenerative changes. Patient was recommended surgical treatment. Underwent L4-L5 hardware removal with L2-S1 decompression and fusion L2-L5. Postoperatively had a creatinine elevation up to 2.2 on 03/13, trending down. He was evaluated by PT and OT services and recommended acute rehab for strengthening. Interval History: Patient was seen today at bedside. Appears in no distress. In good spirits overall. No longer having blood in urine. Review of Systems Review of Systems All other systems reviewed & are negative unless noted below or in HPI Exam Physical Exam Vital Signs: Temp Pulse Resp BP Pulse Ox O2 Del Method 98.1 F 99 18 124/80 95 Room Air 03/21/24 05:00 03/21/24 08:23 03/21/24 08:23 03/21/24 08:23 03/21/24 08:23 03/21/24 08:45 Narrative: General: Awake, alert, oriented x3 HENT: Normal to inspection, normocephalic, atraumatic Eyes: PERRL, normal conjunctiva and sclera Neck: Normal ROM, normal visual inspection. Trachea midline. Cardio: Regular heart rate and rhythm Respiratory: Clear to auscultation bilaterally. Normal respiratory effort. No respiratory distress. GI: Abdomen soft, nontender, nondistended, active bowel sounds x4 quadrants Neuro: CN II-XII intact. Strength 5/5, equal bilaterally. Neurosensory intact. Extremities: No edema, erythema, cyanosis Psych: Mood and affect appropriate. Normal speech. Objective Labs 03/20/24 05:15 03/20/24 08:02 Labs: Laboratory Results - last 24 hr 03/20/24 03/20/24 03/20/24 16:03 20:56 20:56 POC Glucose 152 159 POC Glucose Comment Glu2: cleaned meter Will notify /rn 03/21/24 03/21/24 06:20 11:10 POC Glucose 112 178 POC Glucose Comment Glu2: cleaned meter Medications and Allergies Allergies and Active Meds: Allergies cephalexin [From Keflex] Adverse Reaction (Mild, Verified 03/18/24 18:59) Itching Active Medications Generic Name Dose Route Start Last Admin Trade Name Freq PRN Reason Stop Dose Admin Acetaminophen 500 mg 03/16/24 13:09 03/20/24 09:56 Acetaminophen 500 Mg Tablet PO 03/16/25 13:08 500 mg Q4H PRN Administration Pain Al Hydrox/Mg Hydrox/Simethicone 30 ml 03/16/24 13:09 Mag Hydrox/Al Hydrox/Simeth 30 Ml Udc PO 03/16/25 13:08 Q4H PRN Indigestion Albuterol/Ipratropium 3 ml 03/18/24 11:34 Ipratropium/Albuterol 0.5-3 Mg 3 Ml Ampul.Neb INHALATION 03/17/25 19:59 QID.RESP PRN Wheezing Atorvastatin Calcium 10 mg 03/16/24 22:00 03/20/24 20:15 Atorvastatin 10 Mg Tablet PO 03/16/25 21:59 10 mg QHS MARIELOS Administration Bisacodyl 10 mg 03/16/24 13:09 Bisacodyl 10 Mg Supp.Rect PA 03/16/25 13:08 DAILY PRN Constipation Cyclobenzaprine HCl 10 mg 03/16/24 13:07 03/20/24 20:15 Cyclobenzaprine 10 Mg Tablet PO 03/16/25 13:06 10 mg TID PRN Administration muscle spasm Diphenhydramine HCl 25 mg 03/18/24 18:43 03/20/24 20:15 Diphenhydramine 25 Mg Capsule PO 03/18/25 18:42 25 mg Q4H PRN Administration Itching Docusate Sodium 100 mg 03/16/24 13:09 03/19/24 05:18 Docusate 100 Mg Capsule PO 03/16/25 13:08 100 mg BID PRN Administration Constipation Docusate Sodium 283 mg 03/16/24 13:09 Docusate Enema 283 Mg/5 Ml Enema PA 03/16/25 13:08 DAILY PRN Constipation Enoxaparin Sodium 40 mg 03/19/24 10:00 03/21/24 09:06 Enoxaparin 40 Mg/0.4 Ml Syringe SUBCUT 03/19/25 09:59 40 mg DAILY@1000 MARIELOS Administration Ferrous Sulfate 324 mg 03/20/24 09:00 03/20/24 09:56 Ferrous Sulfate 324 Mg Tablet.Dr PO 03/20/25 08:59 324 mg Q48HR MARIELOS Administration Glimepiride 1 mg 03/17/24 08:00 03/21/24 08:23 Glimepiride 1 Mg Tablet PO 03/17/25 07:59 1 mg DAILY.WITH.BKFAST MARIELOS Administration Guaifenesin 600 mg 03/17/24 17:20 03/19/24 21:32 Guaifenesin 600 Mg Tab.Er.12h PO 03/17/25 17:19 600 mg BID PRN Administration Congestion Lactulose 30 gm 03/16/24 13:09 Lactulose 20 Gm/30 Ml Udc PO 03/16/25 13:08 DAILY PRN Constipation Levofloxacin 750 mg 03/20/24 21:00 03/20/24 20:16 Levofloxacin 750 Mg Tablet PO 750 mg Q48H MARIELOS Administration Lisinopril 40 mg 03/17/24 09:00 03/19/24 09:09 Lisinopril 40 Mg Tablet PO 03/17/25 08:59 40 mg DAILY MARIELOS Administration Metoprolol Tartrate 50 mg 03/17/24 09:00 03/21/24 08:23 Metoprolol Tartrate 50 Mg Tablet PO 03/17/25 08:59 50 mg BID MARIELOS Administration Oxycodone/Acetaminophen 1 tab 03/16/24 14:00 03/21/24 09:37 Oxycodone/Acetaminophen 5-325 Mg Tablet PO 1 tab Q6HR PRN Administration pain Pantoprazole Sodium 40 mg 03/17/24 09:00 03/21/24 08:23 Pantoprazole 40 Mg Tablet. PO 03/17/25 08:59 40 mg DAILY MARIELOS Administration Sennosides 2 tab 03/17/24 12:00 03/19/24 05:18 Sennosides 8.6 Mg Tablet PO 03/17/25 11:59 2 tab DAILY@12 PRN Administration If no BM in 2 days Sodium Chloride 0 ml 03/16/24 13:09 Sodium Chloride 0.9 % 10 Ml Syringe IV-PUSH 03/16/25 13:08 PRN PRN Flush Assessment/Plan Assessment/Plan (1) S/P lumbar fusion: Plan: PT to improve pt's strength, endurance, bed mobility, transfers (sit-stand), standing balance, gait quality on level surfaces and stairs, coordination and functional ADL skills. Will also work to improve pt's safety awareness during transfers and ambulation. OT for basic ADL re-training (bathing, dressing, toileting, continence, grooming, feeding, transferring), to increase activity tolerance and functional mobility and to evaluate for adaptive and assistive devices. Will work to improve pt's endurance and educate pt on fall prevention and energy conservationtechniques-pacing strategies and proper breathing techniques during functional tasks. Patient education Pressure ulcer prophylaxis; encourage mobilization, frequent postural changes, pressure-relief techniques DVT prophylaxis Encourage deep breathing exercise incentive spirometry. Monitor bladder. Toileting schedule. Continue current bladder management, with scans as needed and CIC if needed. Start bowel care program every day to obtain continence, prevent ileus. Maintain fall precautions Gait and balance retraining Provision of the necessary gait aids and functional adaptive equipment to enhance the patient's a functional judaism Encourage deep breathing exercises and incentive spirometry RD evaluation Ensure adequate nutrition and hydration Discharge planning. (2) Impaired mobility and activities of daily living: (3) Hypertension: (4) Hyperlipemia: (5) Diabetes mellitus: (6) Lumbar stenosis: (7) CKD (chronic kidney disease): (8) COVID-19: Plan Patient is a 78-year-old male with past medical history of back pain due to lumbar stenosis, radiculopathy, who recently underwent old L3-L4 hardware removal, L2 S1 decompression and L2-L5 fusion by Dr. Weiss. * Hematuria resolved. Continue to monitor for now. Lovenox resumed. * Continue Levaquin for UTI. Proteus sensitive to Levaquin. * No respiratory complaints at this point. Remains on room air saturating above 90%. Patient education Pressure ulcer prophylaxis; encourage mobilization, frequent postural changes, pressure-relief techniques DVT prophylaxis Encourage deep breathing exercise incentive spirometry. Monitor bladder. Toileting schedule. Continue current bladder management, with scans as needed and CIC if needed. Start bowel care program every day to obtain continence, prevent ileus. Maintain fall precautions Gait and balance retraining Functional training and self-care and home management, including activities of daily living and instrumental activities of daily living Provision of the necessary gait aids and functional adaptive equipment to enhance the patient's a functional judaism Ensure adequate nutrition and hydration Sleep no issues Pain: Continue current regimen Discharge planning: Home alone in 7 to 10 days. I spent 25 minutes for services, including [id number] encounter with the patient, discussion of the case, plan of care, and exam; and qmdfpff-ya-[id number] activities, such as reviewing pertinent it consultant documentation, recent therapynotes, laboratory and radiology studies, and discussion of case with care team including physician, nursing, wrapper caser, and therapists. More than 50 % of time was spent on patient/family counseling or coordination ofcare. Patient was personally seen by me, Dr. Carpenter, on the day of encounter, reviewed the history and the relevant portions of the chart, including current orders, allied health and it consultant notes, labs/imaging and performed sherman elements of exam and I formulated the plan of care and facilitated the medical decision making. Documented By: Camron Carpenter MD [id number] Signed By: <Electronically signed by Camron Carpenter MD> 03/21/24 2234 [facility] Work Phone: [phone] 244-879707-18-2024 Progress note Author Albert Swan [facility] March 20, 2024 7:40am Note Date/Time March 19, 2024 12:2 6pm [facility] [address] [place] [address] Physiatry(Rehab) Progress Note Signed Patient: Bishnu Love MR#: [id number] : 1945 Acct:[id number] Age/Sex: 78 / M Adm Date: 4 Loc: Room: 7L1699-2 Type: ADM IN Attending Dr: Albert Swan MD Copies to: ~ <Glendy Calabrese APRN - Last Filed: 03/19/24 12:32> Date of Service: 03/19/2024 Subjective <Glendy Calabrese APRN - Last Filed: 03/19/24 12:32> Subjective Narrative: Mr. Love is a 78 year old male presenting to acute inpatient rehab with functional impairments s/p lumbar fusion. Patient presented with complaints of constant low back pain and radicular symptoms. Has had pain in both legs, although mostly on the left side, associated with weakness. He has chronic back pain which recently gotten progressively worse. History of prior remote laminectomy and L4-L5 fusion. MRIof the lumbar spine demonstrated L4-5 posterior decompression and fusion, degenerative disc disease at L2-3 L4 with mass effect on existing L4 nerve root L2-L3 degenerative changes. Patient was recommended surgical treatment. Underwent L4-L5 hardware removal with L2-S1 decompression and fusion L2-L5. Postoperatively had a creatinine elevation up to 2.2 on 03/13, trending down. He was evaluated by PT and OT services and recommended acute rehab for strengthening. Interval History: Patient was seen and examined in his room. He is alert, pleasant, oriented. Verbalizes increased pain after completing PT, requesting some more pain medications. He was placed on Levaquin yesterday for UTI, urine culture is still pending. Hehas not had any hematuria/clots since yesterday. No other symptoms. If urine remains clear, can resume SQ Lovenox tomorrow morning. Respiratory status remained stable. He has no complaints of dyspnea at this time. Lung sounds are diminished throughout without wheezes or rhonchi. Still some cough but nonproductive.. He is doing well in therapy. This morning was able to ambulate 230 feet with a walker and contact-guard assistance. CGA/min assist with transfers. Review of Systems <Glendy RALPH Calabrese - Last Filed: 03/19/24 12:32> Review of Systems All other systems reviewed & are negative unless noted below or in HPI Exam <Glendylila Calabrese APRN - Last Filed: 03/19/24 12:32> Physical Exam Vital Signs: Temp Pulse Resp BP Pulse Ox O2 Del Method 98.1 F 96 16 149/69 H 95 Room Air 03/19/24 05:12 03/19/24 09:16 03/19/24 05:12 03/19/24 09:16 03/19/24 09:16 03/19/24 07:30 Narrative: General: Awake, alert, oriented x3 HENT: Normal to inspection, normocephalic, atraumatic Eyes: PERRL, normal conjunctiva and sclera Neck: Normal ROM, normal visual inspection. Trachea midline. Cardio: Regular heart rate and rhythm Respiratory: Clear to auscultation bilaterally. Normal respiratory effort. No respiratory distress. GI: Abdomen soft, nontender, nondistended, active bowel sounds x4 quadrants Neuro: CN II-XII intact. Strength 5/5, equal bilaterally. Neurosensory intact. Extremities: No edema, erythema, cyanosis Psych: Mood and affect appropriate. Normal speech. Objective <Glendy RALPH Calabrese - Last Filed: 03/19/24 12:32> Labs 03/20/24 05:15 03/20/24 05:15 Labs: Laboratory Results - last 24 hr 03/18/24 03/18/24 03/19/24 16:26 20:54 05:32 Corrected WBC 7.7 Uncorrected WBC Count 7.7 RBC 2.73 L Hgb 9.5 L Hct 28.2 L MCV 103.1 H MCH 34.8 MCHC 33.8 RDW 13.2 Plt Count 201 MPV 8.6 Neut % (Auto) 67.3 Lymph % (Auto) 17.6 [place] % (Auto) 12.8 Eos % (Auto) 1.9 Baso % (Auto) 0.4 Nucleat RBC Rel Count 0.0 Neut # (Auto) 5.1 Lymph # (Auto) 1.3 [place] # (Auto) 1.0 H Eos # (Auto) 0.1 Baso # (Auto) 0.0 PHA Creatinine Clear 48.48 Sodium 136 Potassium 4.4 Chloride 101 Carbon Dioxide 28.4 Anion Gap 11.0 BUN 24 Creatinine 1.48 H Est GFR (CKD-EPI) 48.126 Glucose 108 H POC Glucose 164 199 POC Glucose Comment Glu2: cleaned meter Calcium 8.8 03/19/24 03/19/24 07:07 11:51 Corrected WBC Uncorrected WBC Count RBC Hgb Hct MCV MCH MCHC RDW Plt Count MPV Neut % (Auto) Lymph % (Auto) [place] % (Auto) Eos % (Auto) Baso % (Auto) Nucleat RBC Rel Count Neut # (Auto) Lymph # (Auto) [place] # (Auto) Eos # (Auto) Baso # (Auto) PHA Creatinine Clear Sodium Potassium Chloride Carbon Dioxide Anion Gap BUN Creatinine Est GFR (CKD-EPI) Glucose POC Glucose 116 139 POC Glucose Comment Calcium Medications and Allergies Allergies and Active Meds: Allergies cephalexin [From Keflex] Adverse Reaction (Mild, Verified 03/18/24 18:59) Itching Active Medications Generic Name Dose Route Start Last Admin Trade Name Freq PRN Reason Stop Dose Admin Acetaminophen 500 mg 03/16/24 13:09 03/18/24 21:13 Acetaminophen 500 Mg Tablet PO 03/16/25 13:08 500 mg Q4H PRN Administration Pain Al Hydrox/Mg Hydrox/Simethicone 30 ml 03/16/24 13:09 Mag Hydrox/Al Hydrox/Simeth 30 Ml Udc PO 03/16/25 13:08 Q4H PRN Indigestion Albuterol/Ipratropium 3 ml 03/18/24 11:34 Ipratropium/Albuterol 0.5-3 Mg 3 Ml Ampul.Neb INHALATION 03/17/25 19:59 QID.RESP PRN Wheezing Atorvastatin Calcium 10 mg 03/16/24 22:00 03/18/24 21:13 Atorvastatin 10 Mg Tablet PO 03/16/25 21:59 10 mg QHS MARIELOS Administration Bisacodyl 10 mg 03/16/24 13:09 Bisacodyl 10 Mg Supp.Rect PA 03/16/25 13:08 DAILY PRN Constipation Cyclobenzaprine HCl 10 mg 03/16/24 13:07 03/18/24 21:13 Cyclobenzaprine 10 Mg Tablet PO 03/16/25 13:06 10 mg TID PRN Administration muscle spasm Diphenhydramine HCl 25 mg 03/18/24 18:43 03/18/24 21:14 Diphenhydramine 25 Mg Capsule PO 03/18/25 18:42 25 mg Q4H PRN Administration Itching Docusate Sodium 100 mg 03/16/24 13:09 03/19/24 05:18 Docusate 100 Mg Capsule PO 03/16/25 13:08 100 mg BID PRN Administration Constipation Docusate Sodium 283 mg 03/16/24 13:09 Docusate Enema 283 Mg/5 Ml Enema PA 03/16/25 13:08 DAILY PRN Constipation Enoxaparin Sodium 40 mg 03/19/24 10:00 Enoxaparin 40 Mg/0.4 Ml Syringe SUBCUT 03/19/25 09:59 DAILY@1000 MARIELOS Ferrous Sulfate 324 mg 03/20/24 09:00 Ferrous Sulfate 324 Mg Tablet.Dr PO 03/20/25 08:59 Q48HR MARIELOS Glimepiride 1 mg 03/17/24 08:00 03/19/24 09:09 Glimepiride 1 Mg Tablet PO 03/17/25 07:59 1 mg DAILY.WITH.BKFAST MARIELOS Administration Guaifenesin 600 mg 03/17/24 17:20 03/18/24 21:13 Guaifenesin 600 Mg Tab.Er.12h PO 03/17/25 17:19 600 mg BID PRN Administration Congestion Lactulose 30 gm 03/16/24 13:09 Lactulose 20 Gm/30 Ml Udc PO 03/16/25 13:08 DAILY PRN Constipation Levofloxacin 750 mg 03/20/24 21:00 Levofloxacin 750 Mg Tablet PO Q48H MARIELOS Lisinopril 40 mg 03/17/24 09:00 03/19/24 09:09 Lisinopril 40 Mg Tablet PO 03/17/25 08:59 40 mg DAILY MARIELOS Administration Metoprolol Tartrate 50 mg 03/17/24 09:00 03/19/24 09:09 Metoprolol Tartrate 50 Mg Tablet PO 03/17/25 08:59 50 mg BID MARIELOS Administration Oxycodone/Acetaminophen 1 tab 03/16/24 14:00 03/19/24 09:09 Oxycodone/Acetaminophen 5-325 Mg Tablet PO 1 tab Q6HR PRN Administration pain Pantoprazole Sodium 40 mg 03/17/24 09:00 03/19/24 09:09 Pantoprazole 40 Mg Tablet. PO 03/17/25 08:59 40 mg DAILY MARIELOS Administration Sennosides 2 tab 03/17/24 12:00 03/19/24 05:18 Sennosides 8.6 Mg Tablet PO 03/17/25 11:59 2 tab DAILY@12 PRN Administration If no BM in 2 days Sodium Chloride 0 ml 03/16/24 13:09 Sodium Chloride 0.9 % 10 Ml Syringe IV-PUSH 03/16/25 13:08 PRN PRN Flush Assessment/Plan <Glendy Calabrese APRN - Last Filed: 03/19/24 12:32> Assessment/Plan (1) S/P lumbar fusion: Plan: PT to improve pt's strength, endurance, bed mobility, transfers (sit-stand), standing balance, gait quality on level surfaces and stairs, coordination and functional ADL skills. Will also work to improve pt's safety awareness during transfers and ambulation. OT for basic ADL re-training (bathing, dressing, toileting, continence, grooming, feeding, transferring), to increase activity tolerance and functional mobility and to evaluate for adaptive and assistive devices. Will work to improve pt's endurance and educate pt on fall prevention and energy conservationtechniques-pacing strategies and proper breathing techniques during functional tasks. Patient education Pressure ulcer prophylaxis; encourage mobilization, frequent postural changes, pressure-relief techniques DVT prophylaxis Encourage deep breathing exercise incentive spirometry. Monitor bladder. Toileting schedule. Continue current bladder management, with scans as needed and CIC if needed. Start bowel care program every day to obtain continence, prevent ileus. Maintain fall precautions Gait and balance retraining Provision of the necessary gait aids and functional adaptive equipment to enhance the patient's a functional judaism Encourage deep breathing exercises and incentive spirometry RD evaluation Ensure adequate nutrition and hydration Discharge planning. (2) Impaired mobility and activities of daily living: (3) Hypertension: (4) Hyperlipemia: (5) Diabetes mellitus: (6) Lumbar stenosis: (7) CKD (chronic kidney disease): (8) COVID-19: Plan Patient is a 78-year-old male with past medical history of back pain due to lumbar stenosis, radiculopathy, who recently underwent old L3-L4 hardware removal, L2 S1 decompression and L2-L5 fusion by Dr. Weiss. * Hematuria resolved. Continue to monitor for now. May restart SQ Lovenox tomorrow morning urine remains clear. * Was started on Keflex for UTI yesterday, complained of a rash. This was discontinued. Patient placed on Levaquin every 48 hours per renal dosing. Urinary culture is pending. * No respiratory complaints at this point. Remains on room air saturating above 90%. Patient education Pressure ulcer prophylaxis; encourage mobilization, frequent postural changes, pressure-relief techniques DVT prophylaxis Encourage deep breathing exercise incentive spirometry. Monitor bladder. Toileting schedule. Continue current bladder management, with scans as needed and CIC if needed. Start bowel care program every day to obtain continence, prevent ileus. Maintain fall precautions Gait and balance retraining Functional training and self-care and home management, including activities of daily living and instrumental activities of daily living Provision of the necessary gait aids and functional adaptive equipment to enhance the patient's a functional judaism Ensure adequate nutrition and hydration Sleep no issues Pain: Continue current regimen Discharge planning: Home alone in 7 to 10 days. I spent 17 minutes for services, including [id number] encounter with the patient, discussion of the case, plan of care, and exam; and [id number] activities, such as reviewing pertinent it consultant documentation, recent therapynotes, laboratory and radiology studies, and discussion of case with care team including physician, nursing, wrapper caser, and therapists. More than 50 % of time was spent on patient/family counseling or coordination ofcare. <Albert Swan MD - Last Filed: 03/20/24 07:40> Assessment/Plan (1) S/P lumbar fusion: (2) Impaired mobility and activities of daily living: (3) Hypertension: (4) Hyperlipemia: (5) Diabetes mellitus: (6) Lumbar stenosis: (7) CKD (chronic kidney disease): (8) COVID-19: Plan Patient is a 78-year-old male with past medical history of back pain due to lumbar stenosis, radiculopathy, who recently underwent old L3-L4 hardware removal, L2 S1 decompression and L2-L5 fusion by Dr. Weiss. * Hematuria resolved. Continue to monitor for now. May restart SQ Lovenox tomorrow morning urine remains clear. * Was started on Keflex for UTI yesterday, complained of a rash. This was discontinued. Patient placed on Levaquin every 48 hours per renal dosing. Urinary culture is pending. * No respiratory complaints at this point. Remains on room air saturating above 90%. Patient education Pressure ulcer prophylaxis; encourage mobilization, frequent postural changes, pressure-relief techniques DVT prophylaxis Encourage deep breathing exercise incentive spirometry. Monitor bladder. Toileting schedule. Continue current bladder management, with scans as needed and CIC if needed. Start bowel care program every day to obtain continence, prevent ileus. Maintain fall precautions Gait and balance retraining Functional training and self-care and home management, including activities of daily living and instrumental activities of daily living Provision of the necessary gait aids and functional adaptive equipment to enhance the patient's a functional judaism Ensure adequate nutrition and hydration Sleep no issues Pain: Continue current regimen Discharge planning: Home alone in 7 to 10 days. I spent 23 minutes for services, including [id number] encounter with the patient, discussion of the case, plan of care, and exam; and [id number] activities, such as reviewing pertinent it consultant documentation, recent therapynotes, laboratory and radiology studies, and discussion of case with care team including physician, nursing, wrapper caser, and therapists. More than 50 % of time was spent on patient/family counseling or coordination ofcare. Patient was personally seen by me, Dr. Swan, on the day of encounter, reviewed the history and the relevant portions of the chart, including current orders, allied health and it consultant notes, labs/imaging and performed sherman elements of exam and I formulated the plan of care and facilitated the medical decision making. Documented By: Glendy Calabrese APRN 03/19/24 1 226 Signed By: <Electronically signed by RALPH Calabrese> 03/19/24 1232 <Electronically signed by Albert Swan MD> 03/20/24 2765 [facility] Work Phone: [phone]) 994-749707-17-2024 Progress note Author Sharon Ruggiero [facility] March 19, 2024 4:37pm Note Date/Time March 19, 2024 4:32 pm [facility] [address] [place] [address] Hospitalist Progress Note Signed Patient: Bishnu Love MR#: [id number] : 1945 Acct:[id number] Age/Sex: 78 / M Adm Date: 4 Loc: 5T Room: [address] [place] [address] Type: ADM IN Attending Dr: Albert Swan MD Copies to: ~ Date of Service: 03/18/2024 Subjective Subjective Narrative: Patient seen and examined on follow up. documentation demonstrated no hypoxia or need for oxygen. COVID positive status with cough and exertional dyspnea upon arrival to [facility]. Ongoing postoperative pain with LLE weakness. Continues to work with therapy today. Vitals reviewed afebrile no hypoxia with stable baseline blood pressures 1102-130s. CXR without infiltrate. Exam Physical Exam Vital Signs: Temp Pulse Resp BP Pulse Ox O2 Del Method 97.4 F L 89 16 120/62 96 Room Air 03/18/24 14:43 03/18/24 14:43 03/18/24 14:43 03/18/24 14:43 03/18/24 14:43 03/18/24 14:43 Narrative: CONST- alert, in bed CARDIAC- RRR no abnormal heart tones PULM- diminished, few wheezes scattered, no rhonchi, RA, dry cough, no accessorymuscle use or cough noted ABD- S/NT, NABS, round EXTREM- no edema BLE, calves nontender SKIN- W/D, good turgor, lumbar dressing in place surgical site not seen Objective Lab Results 03/19/24 05:32 03/19/24 05:32 Meds Allergies and Active Meds Allergies cephalexin [From Keflex] Adverse Reaction (Mild, Verified 03/18/24 18:59) Itching Active Meds: Active Medications Generic Name Dose Route Start Last Admin Trade Name Freq PRN Reason Stop Dose Admin Acetaminophen 500 mg 03/16/24 13:09 03/18/24 12:36 Acetaminophen 500 Mg Tablet PO 03/16/25 13:08 500 mg Q4H PRN Administration Pain Al Hydrox/Mg Hydrox/Simethicone 30 ml 03/16/24 13:09 Mag Hydrox/Al Hydrox/Simeth 30 Ml Udc PO 03/16/25 13:08 Q4H PRN Indigestion Albuterol/Ipratropium 3 ml 03/18/24 11:34 Ipratropium/Albuterol 0.5-3 Mg 3 Ml Ampul.Neb INHALATION 03/17/25 19:59 QID.RESP PRN Wheezing Atorvastatin Calcium 10 mg 03/16/24 22:00 03/17/24 21:42 Atorvastatin 10 Mg Tablet PO 03/16/25 21:59 10 mg QHS MARIELOS Administration Bisacodyl 10 mg 03/16/24 13:09 Bisacodyl 10 Mg Supp.Rect PA 03/16/25 13:08 DAILY PRN Constipation Cephalexin HCl 500 mg 03/18/24 18:00 Cephalexin 500 Mg Capsule PO 03/23/24 17:59 Q6HR MARIELOS Cyclobenzaprine HCl 10 mg 03/16/24 13:07 03/18/24 12:36 Cyclobenzaprine 10 Mg Tablet PO 03/16/25 13:06 10 mg TID PRN Administration muscle spasm Docusate Sodium 100 mg 03/16/24 13:09 03/18/24 07:52 Docusate 100 Mg Capsule PO 03/16/25 13:08 100 mg BID PRN Administration Constipation Docusate Sodium 283 mg 03/16/24 13:09 Docusate Enema 283 Mg/5 Ml Enema PA 03/16/25 13:08 DAILY PRN Constipation Enoxaparin Sodium 40 mg 03/19/24 10:00 Enoxaparin 40 Mg/0.4 Ml Syringe SUBCUT 03/19/25 09:59 DAILY@1000 [facility] Ferrous Sulfate 324 mg 03/20/24 09:00 Ferrous Sulfate 324 Mg Tablet. PO 03/20/25 08:59 Q48HR MARIELOS Glimepiride 1 mg 03/17/24 08:00 03/18/24 07:52 Glimepiride 1 Mg Tablet PO 03/17/25 07:59 1 mg DAILY.WITH.BKFAST MARIELOS Administration Guaifenesin 600 mg 03/17/24 17:20 Guaifenesin 600 Mg Tab.Er.12h PO 03/17/25 17:19 BID PRN Congestion Lactulose 30 gm 03/16/24 13:09 Lactulose 20 Gm/30 Ml Udc PO 03/16/25 13:08 DAILY PRN Constipation Lisinopril 40 mg 03/17/24 09:00 03/18/24 07:52 Lisinopril 40 Mg Tablet PO 03/17/25 08:59 40 mg DAILY MARIELOS Administration Metoprolol Tartrate 50 mg 03/17/24 09:00 03/18/24 07:52 Metoprolol Tartrate 50 Mg Tablet PO 03/17/25 08:59 50 mg BID MARIELOS Administration Oxycodone/Acetaminophen 1 tab 03/16/24 14:00 03/18/24 14:45 Oxycodone/Acetaminophen 5-325 Mg Tablet PO 1 tab Q6HR PRN Administration pain Pantoprazole Sodium 40 mg 03/17/24 09:00 03/18/24 07:52 Pantoprazole 40 Mg Tablet. PO 03/17/25 08:59 40 mg DAILY MARIELOS Administration Sennosides 2 tab 03/17/24 12:00 03/18/24 07:52 Sennosides 8.6 Mg Tablet PO 03/17/25 11:59 2 tab DAILY@12 PRN Administration If no BM in 2 days Sodium Chloride 0 ml 03/16/24 13:09 Sodium Chloride 0.9 % 10 Ml Syringe IV-PUSH 03/16/25 13:08 PRN PRN Flush A&P - Hospitalist Assessment/Plan (1) COVID: (2) Diabetes mellitus: (3) Hypertension: (4) S/P lumbar fusion: (5) Lumbar stenosis: (6) Hyperlipemia: (7) GERD (gastroesophageal reflux disease): (8) UTI (urinary tract infection), bacterial: Plan s/p L3-4 hardware removal, L2-S1 decompression, L2-5 fusion lumbar stenosis Postoperative anemia -POC per PMR team for rehabilitative therapy, pain control and bowel regimen, DVT prophylaxis, surgical wound care -Please defer any postoperative questions/concerns to Dr. Saint Conrad -Preop Hgb 12.4, trend labs COVID-positive -No hypoxia, afebrile- monitor respiratory status -CXR nonacute -duonebs, guaifenesin prn, incentive spirometry UTI -culture pending -Keflex iniated per PMR team Chronic conditions 1. Diabetes?glimepiride. Recent A1c 5.8. ACHS fingersticks. Glucoses reviewed and controlled 2. Hypertension?lisinopril, metoprolol. BPs reviewed and controlled 3. Hyperlipidemia?atorvastatin 4. GERD?pantoprazole Documented By: Sharon Ruggiero APRN 03/03 02/24 1726 Signed By: <Electronically signed by RALPH Ruggiero> 03/19/24 1637 [facility] Work Phone: [phone]) 357-732407-17-2024 Progress note Author Albert Swan [facility] March 19, 2024 12:03pm Note Date/Time March 18, 2024 4:50 pm [facility] [address] [place] [address] Physiatry(Rehab) Progress Note Signed Patient: Bishnu Love MR#: [id number] : 1945 Acct:[id number] Age/Sex: 78 / M Adm Date: 4 Loc: Room: [address] [place] [address] Type: ADM IN Attending Dr: Albert Swan MD Copies to: ~ Date of Service: 03/18/2024 Subjective Subjective Narrative: Mr. Love is a 78 year old male presenting to acute inpatient rehab with functional impairments s/p lumbar fusion. Patient presented with complaints of constant low back pain and radicular symptoms. Has had pain in both legs, although mostly on the left side, associated with weakness. He has chronic back pain which recently gotten progressively worse. History of prior remote laminectomy and L4-L5 fusion. MRIof the lumbar spine demonstrated L4-5 posterior decompression and fusion, degenerative disc disease at L2-3 L4 with mass effect on existing L4 nerve root L2-L3 degenerative changes. Patient was recommended surgical treatment. Underwent L4-L5 hardware removal with L2-S1 decompression and fusion L2-L5. Postoperatively had a creatinine elevation up to 2.2 on 03/13, trending down. He was evaluated by PT and OT services and recommended acute rehab for strengthening. Interval History: UA looks positive, await final urine c/s. Hematuria noted. + COVID with cough and dyspnea, needed supplemental oxygen. Endorses left leg pain and weakness. Reviewed at team meeting. Review of Systems Review of Systems All other systems reviewed & are negative unless noted below or in HPI Exam Physical Exam Vital Signs: Temp Pulse Resp BP Pulse Ox O2 Del Method 97.4 F L 89 16 120/62 96 Room Air 03/18/24 14:43 03/18/24 14:43 03/18/24 14:43 03/18/24 14:43 03/18/24 14:43 03/18/24 14:43 Narrative: General: Awake, alert, oriented x3 HENT: Normal to inspection, normocephalic, atraumatic Eyes: PERRL, normal conjunctiva and sclera Neck: Normal ROM, normal visual inspection. Trachea midline. Cardio: Regular heart rate and rhythm Respiratory: Clear to auscultation bilaterally. Normal respiratory effort. No respiratory distress. GI: Abdomen soft, nontender, nondistended, active bowel sounds x4 quadrants Neuro: CN II-XII intact. Strength 5/5, equal bilaterally. Neurosensory intact. Extremities: No edema, erythema, cyanosis Psych: Mood and affect appropriate. Normal speech. Objective Labs 03/19/24 05:32 03/19/24 05:32 Labs: Laboratory Results - last 24 hr 03/17/24 03/18/24 03/18/24 20:54 07:36 10:15 POC Glucose 178 142 Urine Color Yellow Urine Appearance Cloudy A Urine pH 7.5 Ur Specific [place] 1.018 Urine Protein 30 H Urine Glucose (UA) Normal Urine Ketones Negative Urine Occult Blood 1+ H Urine Nitrite Negative Urine Bilirubin Negative Urine Urobilinogen Normal Ur Leukocyte Esterase 4+ H Urine RBC 5-9 H Urine WBC Innumerable H Urine WBC Clumps Many H Ur Squamous Epith Cells 1-2 Triple Phos Crystals Rare Urine Bacteria 4+ H Hyaline Casts 9-19 H 03/18/24 03/18/24 11:31 16:26 POC Glucose 171 164 Urine Color Urine Appearance Urine pH Ur Specific [place] Urine Protein Urine Glucose (UA) Urine Ketones Urine Occult Blood Urine Nitrite Urine Bilirubin Urine Urobilinogen Ur Leukocyte Esterase Urine RBC Urine WBC Urine WBC Clumps Ur Squamous Epith Cells Triple Phos Crystals Urine Bacteria Hyaline Casts Medications and Allergies Allergies and Active Meds: Allergies No Known Allergies Allergy (Verified 03/16/24 01:30) Active Medications Generic Name Dose Route Start Last Admin Trade Name Freq PRN Reason Stop Dose Admin Acetaminophen 500 mg 03/16/24 13:09 03/18/24 12:36 Acetaminophen 500 Mg Tablet PO 03/16/25 13:08 500 mg Q4H PRN Administration Pain Al Hydrox/Mg Hydrox/Simethicone 30 ml 03/16/24 13:09 Mag Hydrox/Al Hydrox/Simeth 30 Ml Udc PO 03/16/25 13:08 Q4H PRN Indigestion Albuterol/Ipratropium 3 ml 03/18/24 11:34 Ipratropium/Albuterol 0.5-3 Mg 3 Ml Ampul.Neb INHALATION 03/17/25 19:59 QID.RESP PRN Wheezing Atorvastatin Calcium 10 mg 03/16/24 22:00 03/17/24 21:42 Atorvastatin 10 Mg Tablet PO 03/16/25 21:59 10 mg QHS MARIELOS Administration Bisacodyl 10 mg 03/16/24 13:09 Bisacodyl 10 Mg Supp.Rect PA 03/16/25 13:08 DAILY PRN Constipation Cyclobenzaprine HCl 10 mg 03/16/24 13:07 03/18/24 12:36 Cyclobenzaprine 10 Mg Tablet PO 03/16/25 13:06 10 mg TID PRN Administration muscle spasm Docusate Sodium 100 mg 03/16/24 13:09 03/18/24 07:52 Docusate 100 Mg Capsule PO 03/16/25 13:08 100 mg BID PRN Administration Constipation Docusate Sodium 283 mg 03/16/24 13:09 Docusate Enema 283 Mg/5 Ml Enema PA 03/16/25 13:08 DAILY PRN Constipation Enoxaparin Sodium 40 mg 03/19/24 10:00 Enoxaparin 40 Mg/0.4 Ml Syringe SUBCUT 03/19/25 09:59 DAILY@1000 [facility] Ferrous Sulfate 324 mg 03/20/24 09:00 Ferrous Sulfate 324 Mg Tablet. PO 03/20/25 08:59 Q48HR MARIELOS Glimepiride 1 mg 03/17/24 08:00 03/18/24 07:52 Glimepiride 1 Mg Tablet PO 03/17/25 07:59 1 mg DAILY.WITH.BKFAST MARIELOS Administration Guaifenesin 600 mg 03/17/24 17:20 Guaifenesin 600 Mg Tab.Er.12h PO 03/17/25 17:19 BID PRN Congestion Lactulose 30 gm 03/16/24 13:09 Lactulose 20 Gm/30 Ml Udc PO 03/16/25 13:08 DAILY PRN Constipation Lisinopril 40 mg 03/17/24 09:00 03/18/24 07:52 Lisinopril 40 Mg Tablet PO 03/17/25 08:59 40 mg DAILY MARIELOS Administration Metoprolol Tartrate 50 mg 03/17/24 09:00 03/18/24 07:52 Metoprolol Tartrate 50 Mg Tablet PO 03/17/25 08:59 50 mg BID MARIELOS Administration Oxycodone/Acetaminophen 1 tab 03/16/24 14:00 03/18/24 14:45 Oxycodone/Acetaminophen 5-325 Mg Tablet PO 1 tab Q6HR PRN Administration pain Pantoprazole Sodium 40 mg 03/17/24 09:00 03/18/24 07:52 Pantoprazole 40 Mg Tablet. PO 03/17/25 08:59 40 mg DAILY MARIELOS Administration Sennosides 2 tab 03/17/24 12:00 03/18/24 07:52 Sennosides 8.6 Mg Tablet PO 03/17/25 11:59 2 tab DAILY@12 PRN Administration If no BM in 2 days Sodium Chloride 0 ml 03/16/24 13:09 Sodium Chloride 0.9 % 10 Ml Syringe IV-PUSH 03/16/25 13:08 PRN PRN Flush Assessment/Plan Assessment/Plan (1) S/P lumbar fusion: Plan: PT to improve pt's strength, endurance, bed mobility, transfers (sit-stand), standing balance, gait quality on level surfaces and stairs, coordination and functional ADL skills. Will also work to improve pt's safety awareness during transfers and ambulation. OT for basic ADL re-training (bathing, dressing, toileting, continence, grooming, feeding, transferring), to increase activity tolerance and functional mobility and to evaluate for adaptive and assistive devices. Will work to improve pt's endurance and educate pt on fall prevention and energy conservationtechniques-pacing strategies and proper breathing techniques during functional tasks. Patient education Pressure ulcer prophylaxis; encourage mobilization, frequent postural changes, pressure-relief techniques DVT prophylaxis Encourage deep breathing exercise incentive spirometry. Monitor bladder. Toileting schedule. Continue current bladder management, with scans as needed and CIC if needed. Start bowel care program every day to obtain continence, prevent ileus. Maintain fall precautions Gait and balance retraining Provision of the necessary gait aids and functional adaptive equipment to enhance the patient's a functional judaism Encourage deep breathing exercises and incentive spirometry RD evaluation Ensure adequate nutrition and hydration Discharge planning. (2) Impaired mobility and activities of daily living: (3) Hypertension: (4) Hyperlipemia: (5) Diabetes mellitus: (6) Lumbar stenosis: (7) CKD (chronic kidney disease): (8) COVID-19: Plan Patient is a 78-year-old male with past medical history of back pain due to lumbar stenosis, radiculopathy, who recently underwent old L3-L4 hardware removal, L2 S1 decompression and L2-L5 fusion by Dr. Weiss. * Hematuria noted, monitor. Await final urine c/s. Start keflex can change if needed. * Monitor cardiopulmonary status. + COVID. * Reviewed at team meeting. Patient education Pressure ulcer prophylaxis; encourage mobilization, frequent postural changes, pressure-relief techniques DVT prophylaxis Encourage deep breathing exercise incentive spirometry. Monitor bladder. Toileting schedule. Continue current bladder management, with scans as needed and CIC if needed. Start bowel care program every day to obtain continence, prevent ileus. Maintain fall precautions Gait and balance retraining Functional training and self-care and home management, including activities of daily living and instrumental activities of daily living Provision of the necessary gait aids and functional adaptive equipment to enhance the patient's a functional judaism Ensure adequate nutrition and hydration Sleep no issues Pain: Continue current regimen Discharge planning: Home alone in 7 to 10 days. I spent 25 minutes for services, including [id number] encounter with the patient, discussion of the case, plan of care, and exam; and [id number] activities, such as reviewing pertinent it consultant documentation, recent therapynotes, laboratory and radiology studies, and discussion of case with care team including physician, nursing, wrapper caser, and therapists. More than 50 % of time was spent on patient/family counseling or coordination ofcare. Documented By: Albert Swan MD 03/18/24 0624 Signed By: <Electronically signed by Albert Swan MD> 03/19/24 1047 [facility] Work Phone: [phone] Consult note Author Jackelyn Mott [facility] March 18, 2024 12:48pm Note Date/Time March 17, 2024 5:15 pm [facility] [address] [place] [address] Hospitalist Consult Note Signed Patient: Bishnu Love MR#: [id number] 1178 : 1945 Acct:[id number] Age/Sex: 78 / M Adm Date: 4 Loc: Room: 6X0904-3 Type: ADM IN Attending Dr: Albert Swan MD Copies to: MD Albert Ledezma MD Lynn A Stackhouse-Roby, APRN Rafik Massouh, MD~ HPI DATE OF CONSULTATION: 03/17/24 REQUESTING PROVIDER: Albert Swan Consult Narrative Reason for Consult: Diabetes, hypertension HPI: This is a 78-year-old past medical history significant for hypertension, hyperlipidemia, diabetes, GERD, lumbar stenosis with history of prior back surgery, CKD. Patient underwent L4-5 hardware removal with L2-S1 decompression and fusion at the L2-5 at outside hospital. Postoperatively he had ALBARO with creatinine up to 2.2. He was seen by therapy services there and transferred to [facility] for ongoing rehabilitative management. Hospitalist team is now consulted for management of chronic conditions including diabetes and hypertension. Nursing did report congestion and wheezing earlier, he was essentially diminished at time of my visit [facility] Medical History Lumbar stenosis Lumbar radiculopathy Colonoscopy planned Arthritis GERD (gastroesophageal reflux disease) Hyperlipemia Hypertension Diabetes mellitus Surgical History History of lumbar surgery Social History Smoking Status: Former smoker Tobacco Type: cigarettes Substance Use Type: None Meds Medications and Allergies Allergies No Known Allergies Allergy (Verified 03/16/24 01:30) Home Medications aspirin 81 mg capsule 81 mg PO DAILY 03/16/24 [History Confirmed 03/16/24] atenolol 50 mg tablet 50 mg PO DAILY 03/16/24 [History Confirmed 03/16/24] atorvastatin 10 mg tablet 10 mg PO QHS 03/16/24 [History Confirmed 03/16/24] calcium carbonate 600 mg-vitamin D3 5 mcg (200 unit) tablet (Calcium 600 + D(3))1 tab PO DAILY 03/16/24 [History Confirmed 03/16/24] cyclobenzaprine 10 mg tablet 10 mg PO TID PRN muscle spasm 03/16/24 [History Confirmed 03/16/24] ferrous sulfate 325 mg (65 mg iron) tablet (Feosol) 325 mg PO BID 03/16/24 [History Confirmed 03/16/24] fluticasone propionate 50 mcg/actuation nasal spray,suspension (24 Hour Allergy Relief) 1 spray intranasal DAILY 03/16/24 [History Confirmed 03/16/24] furosemide 20 mg tablet 20 mg PO DAILY 03/16/24 [History Confirmed 03/16/24] glimepiride 1 mg tablet 1 mg PO DAILY 03/16/24 [History Confirmed 03/16/24] hyoscyamine sulfate 0.125 mg disintegrating tablet (Anaspaz) 0.125 mg PO Q6HR PRN spasms 03/16/24 [History Confirmed 03/16/24] lisinopril 40 mg tablet 40 mg PO DAILY 03/16/24 [History Confirmed 03/16/24] meloxicam 15 mg tablet 15 mg PO DAILY 03/16/24 [History Confirmed 03/16/24] multivitamin (Daily Multi-Vitamin tablet) 1 tab PO DAILY 03/16/24 [History Confirmed 03/16/24] nabumetone 500 mg tablet 500 mg PO BID 03/16/24 [History Confirmed 03/16/24] omega 8-czg-mvd-fish oil 1,000 mg (120 mg-180 mg) capsule (Fish Oil) 1 cap PO DAILY 03/16/24 [History Confirmed 03/16/24] omeprazole 20 mg capsule,delayed release 20 mg PO DAILY 03/16/24 [History Confirmed 03/16/24] ondansetron 4 mg disintegrating tablet 4 mg PO Q6HR PRN nausea and vomiting 03/16/24 [History Confirmed 03/16/24] oxycodone-acetaminophen 5 mg-325 mg tablet (Percocet) 1 tab PO Q6HR PRN pain 03/16/24 [History Confirmed 03/16/24] Active Medications: Active Medications Generic Name Dose Route Start Last Admin Trade Name Freq PRN Reason Stop Dose Admin Acetaminophen 500 mg 03/16/24 13:09 Acetaminophen 500 Mg Tablet PO 03/16/25 13:08 Q4H PRN Pain Al Hydrox/Mg Hydrox/Simethicone 30 ml 03/16/24 13:09 Mag Hydrox/Al Hydrox/Simeth 30 Ml Udc PO 03/16/25 13:08 Q4H PRN Indigestion Atorvastatin Calcium 10 mg 03/16/24 22:00 03/16/24 21:52 Atorvastatin 10 Mg Tablet PO 03/16/25 21:59 10 mg QHS MARIELOS Administration Bisacodyl 10 mg 03/16/24 13:09 Bisacodyl 10 Mg Supp.Rect PA 03/16/25 13:08 DAILY PRN Constipation Cyclobenzaprine HCl 10 mg 03/16/24 13:07 03/16/24 15:59 Cyclobenzaprine 10 Mg Tablet PO 03/16/25 13:06 10 mg TID PRN Administration muscle spasm Docusate Sodium 100 mg 03/16/24 13:09 Docusate 100 Mg Capsule PO 03/16/25 13:08 BID PRN Constipation Docusate Sodium 283 mg 03/16/24 13:09 Docusate Enema 283 Mg/5 Ml Enema PA 03/16/25 13:08 DAILY PRN Constipation Ferrous Sulfate 324 mg 03/16/24 21:00 03/17/24 08:21 Ferrous Sulfate 324 Mg Tablet. PO 03/16/25 20:59 324 mg BID MARIELOS Administration Glimepiride 1 mg 03/17/24 08:00 03/17/24 08:20 Glimepiride 1 Mg Tablet PO 03/17/25 07:59 1 mg DAILY.WITH.BKFAST MARIELOS Administration Lactulose 30 gm 03/16/24 13:09 Lactulose 20 Gm/30 Ml Udc PO 03/16/25 13:08 DAILY PRN Constipation Lisinopril 40 mg 03/17/24 09:00 03/17/24 08:20 Lisinopril 40 Mg Tablet PO 03/17/25 08:59 40 mg DAILY MARIELOS Administration Metoprolol Tartrate 50 mg 03/17/24 09:00 03/17/24 08:20 Metoprolol Tartrate 50 Mg Tablet PO 03/17/25 08:59 50 mg BID MARIELOS Administration Oxycodone/Acetaminophen 1 tab 03/16/24 14:00 03/17/24 08:21 Oxycodone/Acetaminophen 5-325 Mg Tablet PO 1 tab Q6HR PRN Administration pain Pantoprazole Sodium 40 mg 03/17/24 09:00 03/17/24 08:20 Pantoprazole 40 Mg Tablet. PO 03/17/25 08:59 40 mg DAILY MARIELOS Administration Sennosides 2 tab 03/17/24 12:00 Sennosides 8.6 Mg Tablet PO 03/17/25 11:59 DAILY@12 PRN If no BM in 2 days Sodium Chloride 0 ml 03/16/24 13:09 Sodium Chloride 0.9 % 10 Ml Syringe IV-PUSH 03/16/25 13:08 PRN PRN Flush Exam Physical Exam Vital Signs: Temp Pulse Resp BP Pulse Ox O2 Del Method 98.2 F 76 18 130/76 100 Room Air 03/17/24 05:00 03/17/24 05:00 03/17/24 05:00 03/17/24 05:00 03/17/24 05:00 03/17/24 05:00 Narrative: CONST- alert, in bed HEAD- normocephalic and atraumatic EENT- sclera nonicteric and conjunctiva nonerythemic, moist oral mucosa, pharynxnot visualized NECK- supple, no cervical lymphadenopathy CARDIAC- RRR no abnormal heart tones PULM- diminished without wheeze or rhonchi, RA, no accessory muscle use or coughnoted ABD- S/NT, NABS, round EXTREM- no edema BLE, calves nontender SKIN- W/D, good turgor, lumbar dressing in place surgical site not seen MS- MAEx4 spontaneously with equal strength but generalized weakness NEURO- A&Ox3, speech clear and tongue midline, equal facial symmetry PSYCH-mood and behavior appropriate Results - Hospitalist Consult Lab Results Labs: Laboratory Results - last 72 hr 03/17/24 11:02: POC Glucose 166 03/17/24 08:26: POC Glucose 147 03/17/24 06:30: Corrected WBC 7.0, Uncorrected WBC Count 7.0, RBC 2.74 L, Hgb 9.8 L, Hct 28.5 L, MCV 104.1 H, MCH 35.6 H, MCHC 34.2, RDW 13.0, Plt Count 189, MPV 8.5, Neut % (Auto) 58.5, Lymph % (Auto) 24.9, [place] % (Auto) 13.0, Eos % (Auto) 3.3, Baso % (Auto) 0.3, Nucleat RBC Rel Count 0.1, Neut # (Auto) 4.1, Lymph # (Auto) 1.8, [place] # (Auto) 0.9 H, Eos # (Auto) 0.2, Baso # (Auto) 0.0, PHA Creatinine Clear 59.79, Sodium 136, Potassium 4.3, Chloride 100, Carbon Dioxide 29.9, Anion Gap 10.4, BUN 18, Creatinine 1.20, Est GFR (CKD-EPI) > 60.0,Glucose 122 H, Calcium 8.8, Total Bilirubin 0.5, AST 70 H, ALT 35, Alkaline Phosphatase 76, Total Protein 6.3 L, Albumin 3.3 L, Globulin 3.0, Albumin/Globulin Ratio 1.1 03/16/24 21:12: POC Glucose 140 03/16/24 16:48: POC Glucose 158 Assessment & Plan Assessment/Plan (1) COVID: (2) Diabetes mellitus: (3) Hypertension: (4) S/P lumbar fusion: (5) Lumbar stenosis: (6) Hyperlipemia: (7) GERD (gastroesophageal reflux disease): Plan s/p L3-4 hardware removal, L2-S1 decompression, L2-5 fusion lumbar stenosis -POC per PMR team for rehabilitative therapy, pain control and bowel regimen, DVT prophylaxis, surgical wound care -Please defer any postoperative questions/concerns to Dr. Saint Conrad -Preop Hgb 12.4 COVID-positive reported wheezing and congestion by staff, diminished on this provider assessment -No hypoxia, afebrile- monitor respiratory status -CXR pending -duonebs, guaifenesin prn, incentive spirometry Chronic conditions 1. Diabetes?glimepiride. Recent A1c 5.8. ACHS fingersticks 2. Hypertension?lisinopril, metoprolol 3. Hyperlipidemia?atorvastatin 4. GERD?pantoprazole Thank you for consulting us to see this pt. I will be off service starting Sunday evening. Case will be handled by one of my partners if needed. Pt is fairly stable at this time. We will follow pt on an as needed basis. Please call or alert hospitalist if pt develops any signs or symptoms that may require medical evaluation and or intervention. Please arrange for pt after discharge follow up appts with PCP and other specialists. I may or may not have addressed all of patient symptoms, abnormal labs and imaging during this hospitalization. Please ask patient to ask PCP and out patient providers to obtain [facility] record entirely to follow up on illnesses, symptoms, abnormal findings that I have and have not addressed duringthis encounter and hospitalization in out patient setting. Documented By: Sharon Ruggiero APRN 03/03 01/24 1500 Signed By: <Electronically signed by RALPH Ruggiero> 03/17/24 1726 <Electronically signed by Jackelyn Mott MD> 03/18/24 7848 [facility] Work Phone: [phone]) 649-870707-16-2024 History and physical note Author Albert Swan [facility] March 18, 2024 11:37am Note Date/Time March 17, 2024 11:1 3am [facility] [address] [place] [address] Physiatry (Rehab) H&P Signed Patient: Bishnu Love MR#: [id number] : 1945 Acct:[id number] Age/Sex: 78 / M Adm Date: 4 Loc: Room: 5B0729-7 Type: ADM IN Attending Dr: Albert Swan MD Copies to: MD Glendy Ledezma, RALPH Swan MD~ Date of Service: 03/17/2024 HPI The patient was seen and examined on: 03/17/24 Etiologic Diagnosis/Impairment Group: 08.9 Chief complaint: back pain, difficulty functioning History of Present Illness: Mr. Love is a 78 year old male presenting to acute inpatient rehab with functional impairments s/p lumbar fusion. Patient presented with complaints of constant low back pain and radicular symptoms. Has had pain in both legs, although mostly on the left side, associated with weakness. He has chronic back pain which recently gotten progressively worse. History of prior remote laminectomy and L4-L5 fusion. MRIof the lumbar spine demonstrated L4-5 posterior decompression and fusion, degenerative disc disease at L2-3 L4 with mass effect on existing L4 nerve root L2-L3 degenerative changes. Patient was recommended surgical treatment. Underwent L4-L5 hardware removal with L2-S1 decompression and fusion L2-L5. Postoperatively had a creatinine elevation up to 2.2 on 03/13, trending down. He was evaluated by PT and OT services and recommended acute rehab for strengthening. Patient is doing well today. Pain level is mild to moderate, pain medications seem to be working well. No other major complaints. He does report occasional shortness of breath with activity, which is not new. He is a former smoker. Does have some crackles to bilateral bases on assessment. No supplemental O2 requirements. Will obtain a COVID swab. At baseline patient is independent and lives alone. He has adequate social support and can get assistance if necessary. [facility] Medical History Lumbar stenosis Lumbar radiculopathy Colonoscopy planned Arthritis GERD (gastroesophageal reflux disease) Hyperlipemia Hypertension Diabetes mellitus Surgical History History of lumbar surgery Social History Smoking Status: Former smoker Tobacco Type: cigarettes Substance Use Type: None Review of Systems Review of Systems All other systems reviewed & are negative unless noted below or in HPI Meds Medications and Allergies Allergies No Known Allergies Allergy (Verified 03/16/24 01:30) Home and Active Meds: Home Medications aspirin 81 mg capsule 81 mg PO DAILY 03/16/24 [History Confirmed 03/16/24] atenolol 50 mg tablet 50 mg PO DAILY 03/16/24 [History Confirmed 03/16/24] atorvastatin 10 mg tablet 10 mg PO QHS 03/16/24 [History Confirmed 03/16/24] calcium carbonate 600 mg-vitamin D3 5 mcg (200 unit) tablet (Calcium 600 + D(3))1 tab PO DAILY 03/16/24 [History Confirmed 03/16/24] cyclobenzaprine 10 mg tablet 10 mg PO TID PRN muscle spasm 03/16/24 [History Confirmed 03/16/24] ferrous sulfate 325 mg (65 mg iron) tablet (Feosol) 325 mg PO BID 03/16/24 [History Confirmed 03/16/24] fluticasone propionate 50 mcg/actuation nasal spray,suspension (24 Hour Allergy Relief) 1 spray intranasal DAILY 03/16/24 [History Confirmed 03/16/24] furosemide 20 mg tablet 20 mg PO DAILY 03/16/24 [History Confirmed 03/16/24] glimepiride 1 mg tablet 1 mg PO DAILY 03/16/24 [History Confirmed 03/16/24] hyoscyamine sulfate 0.125 mg disintegrating tablet (Anaspaz) 0.125 mg PO Q6HR PRN spasms 03/16/24 [History Confirmed 03/16/24] lisinopril 40 mg tablet 40 mg PO DAILY 03/16/24 [History Confirmed 03/16/24] meloxicam 15 mg tablet 15 mg PO DAILY 03/16/24 [History Confirmed 03/16/24] multivitamin (Daily Multi-Vitamin tablet) 1 tab PO DAILY 03/16/24 [History Confirmed 03/16/24] nabumetone 500 mg tablet 500 mg PO BID 03/16/24 [History Confirmed 03/16/24] omega 8-sot-xrx-fish oil 1,000 mg (120 mg-180 mg) capsule (Fish Oil) 1 cap PO DAILY 03/16/24 [History Confirmed 03/16/24] omeprazole 20 mg capsule,delayed release 20 mg PO DAILY 03/16/24 [History Confirmed 03/16/24] ondansetron 4 mg disintegrating tablet 4 mg PO Q6HR PRN nausea and vomiting 03/16/24 [History Confirmed 03/16/24] oxycodone-acetaminophen 5 mg-325 mg tablet (Percocet) 1 tab PO Q6HR PRN pain 03/16/24 [History Confirmed 03/16/24] Active Medications Acetaminophen (Acetaminophen 500 Mg Tablet) 500 mg PO Q4H PRN PRN Reason: Pain Stop: 03/16/25 13:08 Al Hydrox/Mg Hydrox/Simethicone (Mag Hydrox/Al Hydrox/Simeth 30 Ml Udc) 30 ml PO Q4H PRN PRN Reason: Indigestion Stop: 03/16/25 13:08 Atorvastatin Calcium (Atorvastatin 10 Mg Tablet) 10 mg PO QHS MARIELOS Stop: 03/16/25 21:59 Last Admin: 03/16/24 21:52 Dose: 10 mg Bisacodyl (Bisacodyl 10 Mg Supp.Rect) 10 mg PA DAILY PRN PRN Reason: Constipation Stop: 03/16/25 13:08 Cyclobenzaprine HCl (Cyclobenzaprine 10 Mg Tablet) 10 mg PO TID PRN PRN Reason: muscle spasm Stop: 03/16/25 13:06 Last Admin: 03/16/24 15:59 Dose: 10 mg Docusate Sodium (Docusate 100 Mg Capsule) 100 mg PO BID PRN PRN Reason: Constipation Stop: 03/16/25 13:08 Docusate Sodium (Docusate Enema 283 Mg/5 Ml Enema) 283 mg PA DAILY PRN PRN Reason: Constipation Stop: 03/16/25 13:08 Ferrous Sulfate (Ferrous Sulfate 324 Mg Tablet.) 324 mg PO BID [facility] Stop: 03/16/25 20:59 Last Admin: 03/17/24 08:21 Dose: 324 mg Glimepiride (Glimepiride 1 Mg Tablet) 1 mg PO DAILY.WITH.BKFAST [facility] Stop: 03/17/25 07:59 Last Admin: 03/17/24 08:20 Dose: 1 mg Lactulose (Lactulose 20 Gm/30 Ml Udc) 30 gm PO DAILY PRN PRN Reason: Constipation Stop: 03/16/25 13:08 Lisinopril (Lisinopril 40 Mg Tablet) 40 mg PO DAILY [facility] Stop: 03/17/25 08:59 Last Admin: 03/17/24 08:20 Dose: 40 mg Metoprolol Tartrate (Metoprolol Tartrate 50 Mg Tablet) 50 mg PO BID [facility] Stop: 03/17/25 08:59 Last Admin: 03/17/24 08:20 Dose: 50 mg Oxycodone/Acetaminophen (Oxycodone/Acetaminophen 5-325 Mg Tablet) 1 tab PO [id number] PRN Reason: pain Last Admin: 03/17/24 08:21 Dose: 1 tab Pantoprazole Sodium (Pantoprazole 40 Mg Tablet.) 40 mg PO DAILY [facility] Stop: 03/17/25 08:59 Last Admin: 03/17/24 08:20 Dose: 40 mg Sennosides (Sennosides 8.6 Mg Tablet) 2 tab PO DAILY@12 PRN PRN Reason: If no BM in 2 days Stop: 03/17/25 11:59 Sodium Chloride (Sodium Chloride 0.9 % 10 Ml Syringe) 0 ml IV-PUSH PRN PRN PRN Reason: Flush Stop: 03/16/25 13:08 Exam Physical Exam Vital Signs: Temp Pulse Resp BP Pulse Ox O2 Del Method 98.2 F 76 18 130/76 100 Room Air 03/17/24 05:00 03/17/24 05:00 03/17/24 05:00 03/17/24 05:00 03/17/24 05:00 03/17/24 05:00 Narrative: General: Awake, alert, oriented x3 HENT: Normal to inspection, normocephalic, atraumatic Eyes: PERRL, normal conjunctiva and sclera Neck: Normal ROM, normal visual inspection. Trachea midline. Cardio: Regular heart rate and rhythm Respiratory: Clear to auscultation bilaterally. Normal respiratory effort. No respiratory distress. GI: Abdomen soft, nontender, nondistended, active bowel sounds x4 quadrants Neuro: CN II-XII intact. Strength 5/5, equal bilaterally. Neurosensory intact. Extremities: No edema, erythema, cyanosis Psych: Mood and affect appropriate. Normal speech. Results - Phys. Rehab Labs Labs: Laboratory Results - last 24 hr 03/16/24 03/16/24 03/17/24 16:48 21:12 06:30 Corrected WBC 7.0 Uncorrected WBC Count 7.0 RBC 2.74 L Hgb 9.8 L Hct 28.5 L MCV 104.1 H MCH 35.6 H MCHC 34.2 RDW 13.0 Plt Count 189 MPV 8.5 Neut % (Auto) 58.5 Lymph % (Auto) 24.9 [place] % (Auto) 13.0 Eos % (Auto) 3.3 Baso % (Auto) 0.3 Nucleat RBC Rel Count 0.1 Neut # (Auto) 4.1 Lymph # (Auto) 1.8 [place] # (Auto) 0.9 H Eos # (Auto) 0.2 Baso # (Auto) 0.0 PHA Creatinine Clear 59.79 Sodium 136 Potassium 4.3 Chloride 100 Carbon Dioxide 29.9 Anion Gap 10.4 BUN 18 Creatinine 1.20 Est GFR (CKD-EPI) > 60.0 Glucose 122 H POC Glucose 158 140 Calcium 8.8 Total Bilirubin 0.5 AST 70 H ALT 35 Alkaline Phosphatase 76 Total Protein 6.3 L Albumin 3.3 L Globulin 3.0 Albumin/Globulin Ratio 1.1 03/17/24 03/17/24 08:26 11:02 Corrected WBC Uncorrected WBC Count RBC Hgb Hct MCV MCH MCHC RDW Plt Count MPV Neut % (Auto) Lymph % (Auto) [place] % (Auto) Eos % (Auto) Baso % (Auto) Nucleat RBC Rel Count Neut # (Auto) Lymph # (Auto) [place] # (Auto) Eos # (Auto) Baso # (Auto) PHA Creatinine Clear Sodium Potassium Chloride Carbon Dioxide Anion Gap BUN Creatinine Est GFR (CKD-EPI) Glucose POC Glucose 147 166 Calcium Total Bilirubin AST ALT Alkaline Phosphatase Total Protein Albumin Globulin Albumin/Globulin Ratio Additional Results Results Comment: I reviewed clinical lab tests, radiology reports and obtained and summated medical records and have ordered follow up lab tests and imaging studies as needed for rehabilitation care. Functional Status Prior Level of Function Narrative: Patient was previously independent. Individualized Plan of Care Individualized Plan of Care Plan of Care: Individualized Overall Plan of Care: Admit Date/Time: March 16, 2024 Expected LOS: 14 days Expected Discharge Destination: Home Rehabilitation [facility]: 08.9 Primary Diagnosis: s/p lumbar spine fusion Patient?s/Family?s anticipated outcomes/personal goals: To have patient become more independent and to return home. Medical/ Functional Prognosis: Good Anticipated Functional Outcomes/Goals and Interventions: -Therapy Functional Outcome/Goal: Mobility/Locomotion: Patient likely to be independent with ambulation with assistive device. Anticipated interventions: Physician management, PT, OT, Dietitian, Rehab Nursing - Therapy Functional Outcome/Goal: Self Care: Patient likely to be functionally independent for activities of daily living using assistive / adaptive equipment as needed. Anticipated interventions: Physician management, PT, OT, Dietitian, Rehab Nursing - Therapy Functional Outcome/Goal: Bladder/Bowel Management: Patient likely to be independent with bladder care and independent with bowel care. Anticipated interventions: Physician management, PT, OT, Dietitian, Rehab Nursing -Therapy Functional Outcome/Goal: Communication/Cognition: Patient will be able to communicate fully and be safe cognitively. Anticipated interventions: Physician management, PT, OT, Dietitian, Rehab Nursing -Therapy Functional Outcome/Goal: Patient will be independent for bed mobility and transfers Anticipated interventions: Physician management, PT, OT, Dietitian, Rehab Nursing -Therapy Functional Outcome/Goal: Patient will improve endurance to be able to tolerate all daily self care activities and avocational activities. Anticipated interventions: Physician management, PT, OT, Nutrition, Rehab Nursing -Therapy Functional Outcome/Goal: Patient will understand and assimilate / integrate education regarding management of their medical conditions to maintainhealth and wellbeing. Anticipated interventions: Physician management, PT, OT, Dietitian, Rehab Nursing Required Therapy PT: 1.5 hour per day at least 5 days per week with additional therapy on as needed basis. Comments: PT to improve pt's strength, endurance, bed mobility, transfers (sit-stand), standing balance, gait quality on level surfaces and stairs, coordination and functional ADL skills. Will also work to improve pt's safety awareness during transfers and ambulation. OT: 1.5 hour per day at least 5 days per week with additional therapy on as needed basis. Comments: OT for basic ADL re-training (bathing, dressing, toileting, continence, grooming, feeding, transferring), to increase activity tolerance andfunctional mobility and to evaluate for adaptive and assistive devices. Will work to improve pt's endurance and educate pt on fall prevention and energy conservation techniques-pacing strategies and proper breathing techniques duringfunctional tasks. Other: Nutrition, Rehab nursing, Wound, P&O RATIONALE FOR IRF ADMISSION: Patient has both medical and functional complexities that require 24 hour daily monitoring and intervention from [place] [employer] Operator as well as other consulting physicians including internal medicine as well as 24 hour daily manager talent management nursing - for medical safe / optimal management. Patient requires interdisciplinary therapy team rehabilitation care including OT, PT, SW, Rehab Nursing, requires and can tolerate at least 3 hoursof daily OT and PT therapy at least 5 days weekly. The following medical conditions significantly impact the rehabilitation process and are being addressed daily and can not be managed at home or in a lesser intense medical setting: Refer to above problem oriented plan of care Assessment/Plan (1) S/P lumbar fusion: Plan: PT to improve pt's strength, endurance, bed mobility, transfers (sit-stand), standing balance, gait quality on level surfaces and stairs, coordination and functional ADL skills. Will also work to improve pt's safety awareness during transfers and ambulation. OT for basic ADL re-training (bathing, dressing, toileting, continence, grooming, feeding, transferring), to increase activity tolerance and functional mobility and to evaluate for adaptive and assistive devices. Will work to improve pt's endurance and educate pt on fall prevention and energy conservationtechniques-pacing strategies and proper breathing techniques during functional tasks. Patient education Pressure ulcer prophylaxis; encourage mobilization, frequent postural changes, pressure-relief techniques DVT prophylaxis Encourage deep breathing exercise incentive spirometry. Monitor bladder. Toileting schedule. Continue current bladder management, with scans as needed and CIC if needed. Start bowel care program every day to obtain continence, prevent ileus. Maintain fall precautions Gait and balance retraining Provision of the necessary gait aids and functional adaptive equipment to enhance the patient's a functional judaism Encourage deep breathing exercises and incentive spirometry RD evaluation Ensure adequate nutrition and hydration Discharge planning. (2) Impaired mobility and activities of daily living: (3) Hypertension: (4) Hyperlipemia: (5) Diabetes mellitus: (6) Lumbar stenosis: (7) CKD (chronic kidney disease): (8) COVID-19: Plan Patient is a 78-year-old male with past medical history of back pain due to lumbar stenosis, radiculopathy, who recently underwent old L3-L4 hardware removal, L2 S1 decompression and L2-L5 fusion by Dr. Weiss. * Trend renal function. Unsure of CKD history, but did have creatinine elevation to 2.2 post operatively. Creatinine on admission is 1.20. * Monitor blood glucose levels. Continue glimepiride as per home regimen. May need regimen escalation levels seem to be running high. * Clarify DVT prophylaxis with neurosurgery. Patient education Pressure ulcer prophylaxis; encourage mobilization, frequent postural changes, pressure-relief techniques DVT prophylaxis Encourage deep breathing exercise incentive spirometry. Monitor bladder. Toileting schedule. Continue current bladder management, with scans as needed and CIC if needed. Start bowel care program every day to obtain continence, prevent ileus. Maintain fall precautions Gait and balance retraining Functional training and self-care and home management, including activities of daily living and instrumental activities of daily living Provision of the necessary gait aids and functional adaptive equipment to enhance the patient's a functional judaism Ensure adequate nutrition and hydration Sleep no issues Pain: Continue current regimen Discharge planning: Home alone in 7 to 10 days. I spent 36 minutes for services, including [id number] encounter with the patient, discussion of the case, plan of care, and exam; and [id number] activities, such as reviewing pertinent it consultant documentation, recent therapynotes, laboratory and radiology studies, and discussion of case with care team including physician, nursing, wrapper caser, and therapists. More than 50 % of time was spent on patient/family counseling or coordination ofcare. I completed a substantive portion of this encounter, the medical decision makingportion of this note in its entirety, including Allied health note review, nursing note review, it consultant note review, discussion with nursing and case management, and more than 50% of my time was spent on counseling and coordination of care, time spent 65 minutes Patient was personally seen by me, Dr. Swan, on the day of encounter, within 24hours of rehab admission, reviewed the history and the relevant portions of the chart, including current orders, allied health and it consultant notes, labs/imaging and performed sherman elements of exam and I formulated the plan of care and facilitated the medical decision making. Documented By: Glendy Calabrese APRN 03/17/24 1 113 Signed By: <Electronically signed by RALPH Calabrese> 03/17/24 1156 <Electronically signed by Albert Swan MD> 03/18/24 1137 [facility] Work Phone: Evaluation noteNo assessment information available [facility] Work Phone: Evaluation note* Diagnosis Onset Date Resolution Status CKD (chronic kidney disease) acute COVID acute COVID-19 acute Diabetes mellitus acute GERD (gastroesophageal reflux disease) acute Hyperlipemia acute Hypertension acute Impaired mobility and activities of daily living acute Lumbar stenosis acute S/P lumbar fusion acute UTI (urinary tract infection), bacterial acute [facility] Work Phone: Summary Purpose Family History No Family History Records FoundNo Family History Records FoundNo Family History Records Found Advance Directives No Advanced Directives Records Found Advance Directive Response Recorded Date/ Time Advance Directives No November 12, 024 3:11pm Chief Complaint and Reason for Visit Chief Complaint m51.9 Chief Complaint m51.9 m54.50 Chief Complaint m54.50 M51.37 Z01.812 I10 Diabetes Chief Complaint M51.37 Z01.812 I10 D iabetes lumbar radiculopathy s/p ls-s1 decompression l2-5 lumbar radiculopathy s/p ls-s1 decompression l2-5 lumbar radiculopathy s/p ls-s1 decompression l2-5 Reason for Visit CKD (chronic kidney disease) COVID COVID-19 Diabetes mellitus GERD (gastroesophageal reflux disease) Hyperlipemia Hypertension Impaired mobility and activities of daily living Lumbar stenosis S/P lumbar fusion UTI (urinary tract infection), bacterial Additional Source Comments (unrecognized sect ion and content) No Status Records FoundNo Status Records FoundNo Status Records Found INFORMATION SOURCE (unrecogn ized section and content) DATE CREATED AUTHOR 04/30/2020 Rosales Woody [facility] DATE CREATED AUTHOR AUTHOR'S ORGANIZ ATION 08/23/2022 [facility] DATE CREATED AUTHOR AUTHOR'S ORGANIZ ATION 04/08/2024 [facility] Care Teams (unrecognized sec tion and content) Team Status: Active Member Role Status Dates Kaitlynn Liz MD Primary Care Provider Active Team Status: Inactive Member Role Status Dates Kaitlynn Liz MD Primary Care Provide r, Attending Provider Active Start: November 14, 2023 End: November 14, 2023 Team Status: Inactive Member Role Status Dates Kaitlynn Liz MD Primary Care Provider Active Start: December 28, 2023 End: December 28, 2023 Jed Salgado MD Attending Provider Active Start: December 28, 2023 End: December 28, 2023 Team Status: Inactive Member Role Status Dates Kaitlynn Liz MD Primary Care Provider Active Start: February 25, 2024 End: February 25, 2024 Austin Monte PA-C Attending Provider Active Start: February 25, 2024 End: February 25, 2024 Team Status: Inactive Member Role Status Dates Kaitlynn Liz MD Primary Care Provider Active Start: March 16, 2024 End: March 31, 2024 Albert Swan MD Admit Provider, Atte nding Provider Active Start: March 16, 2024 End: March 31, 2024 Nathalie Franco RN Other Provider Active Star t: March 16, 2024 End: March 31, 2024 Leslie Edge , MARK Other Provider Active Start : March 16, 2024 End: March 31, 2024 Tejal Martin , MARK Other Provider Active Star t: March 16, 2024 End: March 31, 2024 Nuris Srinivasan , MARK Other Provider Active Start: Lexus duenas 2023 End: March 31, 2024 Halie Pedraza RN Other Provider Active Start: Angelica sousa 2023 End: March 31, 2024 Jackelyn Mott MD Other Provider Active Start: March 16, 2024 End: March 31, 2024 Gisela Chaidez DO Other Provider Active Start : March 16, 2024 End: March 31, 2024 Alex Pabon MD Other Provider Active Start : March 16, 2024 End: March 31, 2024 Percy Hernandez DO Other Provider Active Start: March 16, 2024 End: March 31, 2024 Josiah Avila MD Other Provider Active Start: March 16, 2024 End: March 31, 2024 Nancy Poon MD Other Provider Active Start : March 16, 2024 End: March 31, 2024 Elvin Reece MD Other Provider Active Start: 2023 End: March 31, 2024 Sharon Ruggiero APRN Other Provider Active Start: March 16, 2024 End: March 31, 2024 Rich Mcclain MD Other Provider Active Start: March 16, 2024 End: March 31, 2024 Geovani Blue MD Other Provider Active Start: 2023 End: March 31, 2024 Clara De La Torre MD Other Provider Active Start: March 16, 2024 End: March 31, 2024 Ada Vo MD Other Provider Active Start: March 16, 2024 End: March 31, 2024 Stephen Salinas DO Other Provider Active Start: March 16, 2024 End: March 31, 2024 Kaitlin Fournier MD Other Provider Active Start: ly 2023 End: March 31, 2024 Steve Steinberg MD Other Provider Active Start: Mar End: March 31, 2024 ERIN Choi Other Provider Active St art: March 16, 2024 End: March 31, 2024 Ronald Kumar APRN Other Provider Active Star t: March 16, 2024 End: March 31, 2024 Ren Ortega MD Other Provider Active Start: March 16, 2024 End: March 31, 2024 Mynor Hernandez MD Other Provider Active Start: ly 2023 End: March 31, 2024 Flavio Gee MD Other Provider Active Start: Mar End: March 31, 2024 Cindy Hager MD Other Provider Active Star t: March 16, 2024 End: March 31, 2024 Ousmane Benson MD Other Provider Active Start: J henrique 2023 End: March 31, 2024 Kristan Valle , Other Provider Active Start: Angelica sousa 2023 End: March 31, 2024 Dk Patino , Other Provider Active Start : March 16, 2024 End: March 31, 2024 Vilma King APRN Other Provider Active Start: March 16, 2024 End: March 31, 2024 Gus Marie , Other Provider Active Start: March 16, 2024 End: March 31, 2024 Joey Olson MD Other Provider Active Sta rt: March 16, 2024 End: March 31, 2024 Tiffany Christopher APRN Other Provider Active Start : March 16, 2024 End: March 31, 2024 Elaine Cabello APRN Other Provider Active St art: March 16, 2024 End: March 31, 2024 Kelsea Steele MD Other Provider Active Start: Lexus 2023 End: March 31, 2024 Shimon Stout MD Other Provider Active S tart: March 16, 2024 End: March 31, 2024 Josh Brown DO Other Provider Active Star t: March 16, 2024 End: March 31, 2024 Han Ruth DO Other Provider Active Start: March 16, 2024 End: March 31, 2024 Felix Gee MD Other Provider Active Start: March 16, 2024 End: March 31, 2024 Julia Rai MD Other Provider Active Start: March 16 End: March 31, 2024 Meche Deal APRN Other Provider Active Star t: March 16, 2024 End: March 31, 2024 Antonio Boss MD Other Provider Active Start: Lexus 2023 End: March 31, 2024 Дмитрий Clemons MD Other Provider Active Start: Angelica sousa 2023 End: March 31, 2024 Ingrid Kowalski RN Other Provider Active Start: 2023 End: March 31, 2024 Team Status: Active Member Role Status Dates Kaitlynn Liz MD Primary Care Provider Active Start: March 17, 2024 Albert Swan MD Admit Provider, Othe r Provider Active Start: March 17, 2024 Nathalie Franco , MARK Other Provider Active Star t: March 17, 2024 Leslie Edge , MARK Other Provider Active Start : March 17, 2024 Tejal Martin , MARK Other Provider Active Star t: March 17, 2024 Nuris Srinivasan RN Other Provider Active Start: 2023 Halie Pedraza RN Other Provider Active Start: ly 2023 Jackelyn Mott MD Other Provider Active Start: March 17, 2024 Gisela Chaidez DO Other Provider Active Start : March 17, 2024 Alex Pabon MD Other Provider Active Start : March 17, 2024 Percy Hernandez DO Other Provider Active Start: March 17, 2024 Josiah Avila MD Other Provider Active Start: March 17, 2024 Nancy Poon MD Other Provider Active Start : March 17, 2024 Elvin Reece MD Other Provider Active Start: 2023 Sharon Ruggiero APRN Other Provider Active Start: March 17, 2024 Rich Mcclain MD Other Provider Active Start: March 17, 2024 Geovani Blue MD Other Provider Active Start: 2023 lCara De La Torre MD Other Provider Active Start: March 17, 2024 Ada Vo MD Other Provider Active Start: March 17, 2024 Stephen Salinas DO Other Provider Active Start: March 17, 2024 Kaitlin Fournier MD Other Provider Active Start: ly 2023 Steve Steinberg MD Other Provider Active Start: Mar Leta Glass NP-C Other Provider Active St art: March 17, 2024 Ronald Kumar APRN Other Provider Active Star t: March 17, 2024 Ren Ortega MD Other Provider Active Start: March 17, 2024 Mynor Hernandez MD Other Provider Active Start: Ju ly 2023 Flavio Gee MD Other Provider Active Start: Jan christoph 2023 Cindy Hager MD Other Provider Active Star t: March 17, 2024 Ousmane Benson MD Other Provider Active Start: J [email or web address] Kristan Valle , Other Provider Active Start: ly 2023 Dk Patino , DO Other Provider Active Start : March 17, 2024 Vilma King APRN Other Provider Active Start: March 17, 2024 Gus Marie , Other Provider Active Start: March 17, 2024 Joey Olson MD Other Provider Active Sta rt: March 17, 2024 Tiffany Christopher APRN Other Provider Active Start : March 17, 2024 Elaine Cabello APRN Other Provider Active St art: March 17, 2024 Kelsea Steele MD Other Provider Active Start: J 2023 Shimon Stout MD Other Provider Active S tart: March 17, 2024 Josh Brown , Other Provider Active Star t: March 17, 2024 Han Ruth DO Other Provider Active Start: March 17, 2024 Felix Gee MD Other Provider Active Start: March 17, 2024 Julia Rai MD Other Provider Active Start: March 17 Meche Deal APRN Other Provider Active Star t: March 17, 2024 Antonio Boss MD Other Provider Active Start: J 2023 Дмитрий Clemons MD Other Provider Active Start: ly 2023 Ingrid Kowalski RN Other Provider Active Start: J [email or web address] Glendy Calabrese APRN Attending Provider Active Start: March 17, 2024 Team Status: Active Member Role Status Dates Kaitlynn Liz MD Primary Care Provider Active Start: March 24, 2024 Albert Swan MD Admit Provider, Othe r Provider Active Start: March 24, 2024 Nathalie Franco RN Other Provider Active Star t: March 24, 2024 Leslie Edge RN Other Provider Active Start : March 24, 2024 Tejal Martin , MARK Other Provider Active Star t: March 24, 2024 Nuris Srinivasan , MARK Other Provider Active Start: 2023 Halie Pedraza RN Other Provider Active Start: 2023 Jackelyn Mott MD Other Provider Active Start: March 24, 2024 Gisela Chaidez , Other Provider Active Start : March 24, 2024 Alxe Pabon MD Other Provider Active Start : March 24, 2024 ePrcy Hernandez DO Other Provider Active Start: March 24, 2024 Josiah Avila MD Other Provider Active Start: March 24, 2024 Nancy Poon MD Other Provider Active Start : March 24, 2024 Elvin Reece MD Other Provider Active Start: 2023 Sharon Ruggiero APRN Other Provider Active Start: March 24, 2024 Rich Mcclain MD Other Provider Active Start: March 24, 2024 Geovani Blue MD Other Provider Active Start: 2023 Clara De La Torre MD Other Provider Active Start: March 24, 2024 Ada Vo MD Other Provider Active Start: March 24, 2024 Stephen Salinas DO Other Provider Active Start: March 24, 2024 Kaitlin Fournier MD Other Provider Active Start: 2023 Steve Steinberg MD Other Provider Active Start: Mar Leta Glass NP-C Other Provider Active St art: March 24, 2024 Ronald Kumar APRN Other Provider Active Star t: March 24, 2024 Ren Ortega MD Other Provider Active Start: March 24, 2024 Mynor Hernandez MD Other Provider Active Start: 2023 Flavio Gee MD Other Provider Active Start: Mar Cindy Hager MD Other Provider Active Star t: March 24, 2024 Ousmane Benson MD Other Provider Active Start: 2023 Kristan Valle DO Other Provider Active Start: 2023 Dk Patino Other Provider Active Start : March 24, 2024 Vilma King APRN Other Provider Active Start: March 24, 2024 Gus Marie , Other Provider Active Start: March 24, 2024 Joey Olson MD Other Provider Active Sta rt: March 24, 2024 Tiffany Christopher APRN Other Provider Active Start : March 24, 2024 Elaine Cabello APRN Other Provider Active St art: March 24, 2024 Kelsea Steele MD Other Provider Active Start: Lexus duenas 2023 Shimon Stout MD Other Provider Active S tart: March 24, 2024 Josh Brown , DO Other Provider Active Star t: March 24, 2024 Han Ruth DO Other Provider Active Start: March 24, 2024 Felix Gee MD Other Provider Active Start: March 24, 2024 Julia Rai MD Other Provider Active Start: March 24 Meche Deal APRN Other Provider Active Star t: March 24, 2024 Antonio Boss MD Other Provider Active Start: Lexus duenas 2023 Дмитрий Clemons MD Other Provider Active Start: Angelica sousa 2023 Ingrid Kowalski RN Other Provider Active Start: Lexus duenas 2023 Glendy Calabrese APRN Attending Provider Active Start: March 24, 2024 Goals (unrecognized section and content) Goals may be documented in a n alternate sectionGoals may be documented in an alternate sectionGoals may be documented in an alternate section FOR RECORDS PERTAINING TO PATIENTS [...] BE BASED ON THE PRIMARY CLINICAL RECORDS. [facility] [employer] [facility]. provides no warranty or guarantee of the accuracy or completeness of information in this document.
== END 2024-04-09 15:14 | disposition home or self-care (01) ==
LOC: US 15:15
PROVIDERS: PCP Family Medicine; Visit Provider Family Medicine
DX: I87.2 Venous insufficiency (chronic) (peripheral) (principal); R60.0 Localized edema
CPT/HCPCS: 93970

== ENCOUNTER 2024-04-18 09:55 | Outpatient (OUT) | payer MEDICARE, SELFPAY ==
--- NOTE | 2024-04-18 | XR_ITS ---
The [address] [address] Patient Name: QUETA QUIROGA MRN: [id number] date: 1945 Sex: M Assigned Patient Location: Current Patient Location: Accession/Order Number: [id number] Exam Date: 04/18/2024 09:59 Report Date: 04/21/2024 11:06 At the request of: GITA MAGANA Procedure: XR lumbar spine 2-3V EXAMINATION: XR lumbar spine 2-3V HISTORY: LUMBAR SPINE PAIN COMPARISON: XR lumbar spine 12/07/2023 FINDINGS: BONES: Posterior mechanical fusion L2-L5 via bilateral pedicle screws and rods. Minimal grade 1 retrolisthesis of L2 on 3. Multilevel moderate degenerative facet arthropathy with bone encroachment neural foramen. Prior osseous fusion of the facet joints. Posterior decompression L2-L5. DISC SPACES: Intervertebral spacer at L4-L5. Marked narrowing L2-L3. Moderate narrowing L1-L2, L5-S1. PARASPINOUS: Negative. No paraspinous abnormality is seen. OTHER: Negative. XR/XR lumbar spine 2-3V IMPRESSION: 1. Interval revision of lumbar spine fusion and posterior decompression as detailed above. Electronically authenticated by: LIVE JOLLEY Date: 04/21/2024 11:06
--- OUTSIDE RECORDS SUMMARY | 2024-04-18 10:09 | XMS_ITS | CCD ---
Author Organization [facility] Care Team Providers Care Vehicle Maintenance Supervisor Name Role Phone DR KAITLYNN LIZ Attending Unavailable DR KAITLYNN LIZ Consulting Unavailable DR KAITLYNN LIZ Primary Care Unavailable DR KAITLYNN LIZ Admitting Unavailable MD Kaitlynn Liz Primary Care Provider [phone] MD Kaitlynn Liz Attending Provider MD Jed Salgado F Attending Provider [phone] MD Kaitlynn Liz Primary Care Provider [phone] WILLIAM Monte Attending Provider [phone] MD Kaitlynn Liz Primary Care Provider [phone] MD Albert Swan Admit Provider MD Albert Swan Attending Provider MARK Franco Other Provider Unavailable MARK Edge Other Provider Unavailable MARK Martin Other Provider Unavailable MARK Srinivasan Other Provider Unavailable MARK Pedraza Other Provider Unavailable MD Jackelyn Mott Other Provider DO Gisela Chaidez Other Provider MD Alex Pabon Other Provider DO Percy Hernandez Other Provider MD Josiah Avila Other Provider MD Nancy Poon Other Provider [phone] MD Elvin Reece Other Provider Unavailable RALPH Ruggiero Other Provider MD Rich Mcclain Other Provider MD Geovani Blue Other Provider MD Clara De La Torre Other Provider MD Ada Vo Other Provider DO Stephen Salinas Other Provider MD Kaitlin Fournier Other Provider MD Steve Steniberg Other Provider GISELLE Glass-C Leta Alberts Other Provider RALPH Kumar Other Provider Unavailable MD Ren Ortega Other Provider MD Mynor Hernandez Other Provider MD Flavio Gee Other Provider MD Cindy Hager Other Provider Unavailable MD Ousmane Benson Other Provider DO Kristan Valle Other Provider DO Dk Patino Other Provider RALPH King Other Provider DO Gus Marie Other Provider [phone] MD Joey Olson Other Provider RALPH Christopher Other Provider RALPH Cabello Other Provider MD Kelsea Steele Other Provider MD Shimon Stout Other Provider DO Josh Brown Other Provider [phone] DO Han Ruth Other Provider MD Felix [...] (1 source) Ciprofloxacin Drug Allergy 08-14-2016 [facility] Repository (2 sources) Cephalexin; Translations: [cephalexin] Drug Allergy 03-18-[address] [facility] Medications Current Medications Medication Drug Class(es) Dates [...] 16, 2024 12:00am March 31, 2024 9:20am [facility] 9-Jup-Vgc-Fish Oil (Fish Oil) 1,000 mg (120 mg-180 mg) capsule (1 source) Start: 03-16-2024 End: 03-31-2024 take 1 capsule by mouth once daily [facility] 0-Nox-Qsr-Fish Oil (Fish Oil) 1,000 mg (120 mg-180 [...] on 03-31-2024 Glucose [Mass/Vol] 127 mg/dL Normal [facility] Comment on above: Random Glucose Refer ence Range is dependent on time and content of last meal. Glucose of more than 200 mg/dL in a nonstressed, ambulatory subject supports the diagnosis of Diabetes Mellitus. Result Comment: [place] Glucose Reference Range is dependent on time and content of last meal. Glucose of more than 200 mg/dL in a nonstressed, ambulatory subject supports the diagnosis of Diabetes Mellitus. PERFORMED BY: [address] [place] [address] PATHOLOGIST [employer] MA[employer] SHELBIE ALMONTE M.D. Performed By: #### G LULS #### Point of Care testing , Glucose Poct Glucometerson 0 03-30-2024 Glucose [Mass/Vol] 203 mg/dL Normal [facility] Comment on above: Result Comment: [facility] Glucose Reference Range is dependent on time and content of last meal. Glucose of more than 200 mg/dL in a nonstressed, ambulatory subject supports the diagnosis of Diabetes Mellitus. PERFORMED BY: [address] [place] [address] PATHOLOGIST [employer] MA[employer] SHELBIE ALMONTE M.D. Performed By: #### G LULS #### Point of Care testing , Glucose [Mass/Vol] 121 mg/dL Normal [facility] Comment on above: Result Comment: [place] Glucose Reference Range is dependent on time and content of last meal. Glucose of more than 200 mg/dL in a nonstressed, ambulatory subject supports the diagnosis of Diabetes Mellitus. PERFORMED BY: [address] [place] [address] PATHOLOGIST [employer] MA[employer] SHELBIE ALMONTE M.D. Performed By: #### G LULS #### Point of Care testing , Glucose [Mass/Vol] 174 mg/dL Normal [facility] Comment on above: Result Comment: [place] Glucose Reference Range is dependent on time and content of last meal. Glucose of more than 200 mg/dL in a nonstressed, ambulatory subject supports the diagnosis of Diabetes Mellitus. PERFORMED BY: [place] [address] PATHOLOGIST [employer] SHELBIE ALMONTE M.D. Performed By: #### G LULS #### Point of Care testing , Glucose [Mass/Vol] 131 mg/dL Normal [facility] Comment on above: Result Comment: [place] Glucose Reference Range is dependent on time and content of last meal. Glucose of more than 200 mg/dL in a nonstressed, ambulatory subject supports the diagnosis of Diabetes Mellitus. PERFORMED BY: [place] [address] PATHOLOGIST [employer] SHELBIE ALMONTE M.D. Performed By: #### G LULS #### Point of Care testing , Commemt1 Glu2: Cleaned Meter Normal [facility] Comment on above: Result Comment: PERF ORMED BY: [place] [address] PATHOLOGIST [employer] MA[employer] SHELBIE ALMONTE M.D. Performed By: #### G LULS #### Point of Care testing , Glucose [Mass/Vol] 120 mg/dL Normal [facility] Comment on above: Result Comment: [place] Glucose Reference Range is dependent on time and content of last meal. Glucose of more than 200 mg/dL in a nonstressed, ambulatory subject supports the diagnosis of Diabetes Mellitus. Performed By: #### G LULS #### Point of Care testing , No Panel InformationOrdered By: Albert Swan on 03-30-2024 Bedside Glucose Comment Glu2: cleaned meter [facility] Glucose Poct Glucometerson 0 03-29-2024 Commemt1 Glu2: Cleaned Meter Normal [facility] Comment on above: Result Comment: PERF ORMED BY: [place] [id number] PATHOLOGIST [employer] MA[employer] SHELBIE ALMONTE M.D. Performed By: #### G LULS #### Point of Care testing , Glucose [Mass/Vol] 204 mg/dL Normal [facility] Comment on above: Result Comment: [place] om Glucose Reference Range is dependent on time and content of last meal. Glucose of more than 200 mg/dL in a nonstressed, ambulatory subject supports the diagnosis of Diabetes Mellitus. Performed By: #### G SUPA #### Point of Care testing , Commemt1 Glu2: Cleaned Meter Normal [facility] Comment on above: Result Comment: PERF ORMED BY: [address] [place] [address] PATHOLOGIST [employer] MAKER SHELBIE ALMONTE M.D. Performed By: #### P AB, CMP, CBC #### [address] Glucose [Mass/Vol] 150 mg/dL Normal [facility] Comment on above: Result Comment: [place] om Glucose Reference Range is dependent on time and content of last meal. Glucose of more than 200 mg/dL in a nonstressed, ambulatory subject supports the diagnosis of Diabetes Mellitus. Performed By: #### P AB, CMP, CBC #### [address] Glucose [Mass/Vol] 127 mg/dL Normal [facility] Comment on above: Result Comment: [place] om Glucose Reference Range is dependent on time and content of last meal. Glucose of more than 200 mg/dL in a nonstressed, ambulatory subject supports the diagnosis of Diabetes Mellitus. PERFORMED BY: [place] [address] PATHOLOGIST [employer] MA[employer] SHELBIE ALMONTE M.D. Performed By: #### P AB, CMP, CBC #### [place] [address] [place] Glucose [Mass/Vol] 120 mg/dL Normal [facility] Comment on above: Result Comment: [place] om Glucose Reference Range is dependent on time and content of last meal. Glucose of more than 200 mg/dL in a nonstressed, ambulatory subject supports the diagnosis of Diabetes Mellitus. PERFORMED BY: [address] [place] [address] PATHOLOGIST [employer] MAKER SHELBIE ALMONTE M.D. Performed By: #### G LULS #### Point of Care testing , Glucose Poct Glucometerson 0 03-28-2024 Glucose [Mass/Vol] 193 mg/dL Normal [facility] Comment on above: Result Comment: [place] om Glucose Reference Range is dependent on time and content of last meal. Glucose of more than 200 mg/dL in a nonstressed, ambulatory subject supports the diagnosis of Diabetes Mellitus. PERFORMED BY: [address] [place] [id number] PATHOLOGIST [employer] MAKER SHELBIE ALMONTE M.D. Performed By: #### G LULS #### Point of Care testing , Glucose [Mass/Vol] 105 mg/dL Normal [facility] Comment on above: Result Comment: [place] om Glucose Reference Range is dependent on time and content of last meal. Glucose of more than 200 mg/dL in a nonstressed, ambulatory subject supports the diagnosis of Diabetes Mellitus. Performed By: #### G LULS #### Point of Care testing , Commemt1 Glu2: Cleaned Meter Normal [facility] Comment on above: Result Comment: PERF ORMED BY: [facility] [address] [facility] [place] [address] PATHOLOGIST [employer] MAKER SHELBIE ALMONTE M.D. Performed By: #### G LULS #### Point of Care testing , Glucose [Mass/Vol] 135 mg/dL Normal [facility] Comment on above: Result Comment: [place] om Glucose Reference Range is dependent on time and content of last meal. Glucose of more than 200 mg/dL in a nonstressed, ambulatory subject supports the diagnosis of Diabetes Mellitus. Performed By: #### G LULS #### Point of Care testing , Glucose [Mass/Vol] 128 mg/dL Normal [facility] Comment on above: Result Comment: [place] om Glucose Reference Range is dependent on time and content of last meal. Glucose of more than 200 mg/dL in a nonstressed, ambulatory subject supports the diagnosis of Diabetes Mellitus. PERFORMED BY: [facility] [address] [place] [address] PATHOLOGIST [employer] MAKER SHELBIE ALMONTE M.D. Performed By: #### G LULS #### Point of Care testing , Glucose Poct Glucometerson 0 03-27-2024 Glucose [Mass/Vol] 173 mg/dL Normal [facility] Comment on above: Result Comment: [place] om Glucose Reference Range is dependent on time and content of last meal. Glucose of more than 200 mg/dL in a nonstressed, ambulatory subject supports the diagnosis of Diabetes Mellitus. PERFORMED BY: [place] [address] PATHOLOGIST [employer] MAKER SHELBIE ALMONTE M.D. Performed By: #### G LULS #### Point of Care testing , Commemt1 Glu2: Cleaned Meter Normal [facility] Comment on above: Result Comment: PERF ORMED BY: [place] [address] PATHOLOGIST CUFF MAKER SHELBIE ALMONTE M.D. Performed By: #### P AB, CMP, CBC #### [address] Glucose [Mass/Vol] 156 mg/dL Normal [facility] Comment on above: Result Comment: [place] om Glucose Reference Range is dependent on time and content of last meal. Glucose of more than 200 mg/dL in a nonstressed, ambulatory subject supports the diagnosis of Diabetes Mellitus. Performed By: #### P AB, CMP, CBC #### [address] Glucose [Mass/Vol] 159 mg/dL Normal [facility] Comment on above: Result Comment: [place] om Glucose Reference Range is dependent on time and content of last meal. Glucose of more than 200 mg/dL in a nonstressed, ambulatory subject supports the diagnosis of Diabetes Mellitus. PERFORMED BY: [place] [address] PATHOLOGIST CUFF MAKER SHELBIE ALMONTE M.D. Performed By: #### G LULS #### Point of Care testing , Glucose [Mass/Vol] 130 mg/dL Normal [facility] Comment on above: Result Comment: [place] om Glucose Reference Range is dependent on time and content of last meal. Glucose of more than 200 mg/dL in a nonstressed, ambulatory subject supports the diagnosis of Diabetes Mellitus. PERFORMED BY: [address] [place] [id number] PATHOLOGIST CUFF MAKER SHELBIE ALMONTE M.D. Performed By: #### G LULS #### Point of Care testing , Glucose Poct Glucometerson 0 03-26-2024 Commemt1 Glu2: Cleaned Meter Normal [facility] Comment on above: Result Comment: PERF ORMED BY: [facility] [address] [facility] [place] [id number] PATHOLOGIST CUFF MAKER SHELBIE ALMONTE M.D. Performed By: #### G LULS #### Point of Care testing , Glucose [Mass/Vol] 226 mg/dL Normal [facility] Comment on above: Result Comment: [place] om Glucose Reference Range is dependent on time and content of last meal. Glucose of more than 200 mg/dL in a nonstressed, ambulatory subject supports the diagnosis of Diabetes Mellitus. Performed By: #### G LULS #### Point of Care testing , Glucose [Mass/Vol] 92 mg/dL Normal [facility] Comment on above: Result Comment: [place] om Glucose Reference Range is dependent on time and content of last meal. Glucose of more than 200 mg/dL in a nonstressed, ambulatory subject supports the diagnosis of Diabetes Mellitus. PERFORMED BY: [address] [address] PATHOLOGIST CUFF MAKER SHELBIE ALMONTE M.D. Performed By: #### G LULS #### Point of Care testing , Glucose [Mass/Vol] 239 mg/dL Normal [facility] Comment on above: Result Comment: [place] om Glucose Reference Range is dependent on time and content of last meal. Glucose of more than 200 mg/dL in a nonstressed, ambulatory subject supports the diagnosis of Diabetes Mellitus. PERFORMED BY: [address] [place] [address] PATHOLOGIST CUFF MAKER SHELBIE ALMONTE M.D. Performed By: #### G LULS #### Point of Care testing , Glucose [Mass/Vol] 129 mg/dL Normal [facility] Comment on above: Result Comment: [place] om Glucose Reference Range is dependent on time and content of last meal. Glucose of more than 200 mg/dL in a nonstressed, ambulatory subject supports the diagnosis of Diabetes Mellitus. PERFORMED BY: [place] [address] PATHOLOGIST CUFF MAKER SHELBIE ALMONTE M.D. Performed By: #### G LULS #### Point of Care testing , Glucose Poct Glucometerson 0 03-25-2024 Commemt1 Glu2: Cleaned Meter Normal [facility] Comment on above: Result Comment: PERF ORMED BY: [place] [phone] PATHOLOGIST [employer]FF MAKER SHELBIE ALMONTE M.D. Performed By: #### P AB, CMP, CBC #### [address] Glucose [Mass/Vol] 196 mg/dL Normal [facility] Comment on above: Result Comment: [place] Glucose Reference Range is dependent on time and content of last meal. Glucose of more than 200 mg/dL in a nonstressed, ambulatory subject supports the diagnosis of Diabetes Mellitus. Performed By: #### P AB, CMP, CBC #### [address] Commemt1 Glu2: Cleaned Meter Normal [facility] Comment on above: Result Comment: PERF ORMED BY: [place] [address] PATHOLOGIST CUFF MAKER SHELBIE ALMONTE M.D. Performed By: #### G LULS #### Point of Care testing , Glucose [Mass/Vol] 114 mg/dL Normal [facility] Comment on above: Result Comment: [place] om Glucose Reference Range is dependent on time and content of last meal. Glucose of more than 200 mg/dL in a nonstressed, ambulatory subject supports the diagnosis of Diabetes Mellitus. Performed By: #### G LULS #### Point of Care testing , Glucose [Mass/Vol] 258 mg/dL Normal [facility] Comment on above: Result Comment: [place] om Glucose Reference Range is dependent on time and content of last meal. Glucose of more than 200 mg/dL in a nonstressed, ambulatory subject supports the diagnosis of Diabetes Mellitus. PERFORMED BY: [place] [address] PATHOLOGIST CUFF MAKER SHELBIE ALMONTE M.D. Performed By: #### P AB, CMP, CBC #### [address] Glucose [Mass/Vol] 148 mg/dL Normal [facility] Comment on above: Result Comment: [place] om Glucose Reference Range is dependent on time and content of last meal. Glucose of more than 200 mg/dL in a nonstressed, ambulatory subject supports the diagnosis of Diabetes Mellitus. PERFORMED BY: [place] [address] PATHOLOGIST CUFF MAKER SHELBIE ALMONTE M.D. Performed By: #### G LULS #### Point of Care testing , COVID-19 [facility] 03-24-2024 SARS-CoV-2 (COVID-19) RNA BENITO+probe Ql (Unsp spec) Negative Normal Negative [facility] Comment on above: Order Comment: Healt hcare Worker?: N Result Comment: Testing for SARS-CoV-2 by RT-PCR This test was developed and its performance characteristics determined by [employer] [place] [employer]) and validated at the [facility]. This test has not been FDA cleared [...] is terminated or revoked sooner. PERFORMED BY: [facility] [address] [place] [address] PATHOLOGIST CUFF MAKER SHELBIE ALMONTE M.D. Performed By: #### G LULS #### Point of Care testing , COVID-19 Positive/NegativeOr dered By: Albert Swan on 03-24-2024 SARS-CoV-2 (COVID-19) N gene BENITO+probe Ql (Resp) Negative Negative [facility] Comment on above: Testing for SARS-CoV -2 by RT-PCRThis test was developed and its performance characteristics determined by [employer] ([employer]) and validated at the [facility]. This test has not been FDA cleared [...] 03-24-2024 Glucose [Mass/Vol] 152 mg/dL Normal [facility] Comment on above: Result Comment: [facility] Glucose Reference Range is dependent on time and content of last meal. Glucose of more than 200 mg/dL in a nonstressed, ambulatory subject supports the diagnosis of Diabetes Mellitus. PERFORMED BY: [facility] [address] [place] [address] PATHOLOGIST [employer]FF MAKER SHELBIE ALMONTE M.D. Performed By: #### G LULS #### Point of Care testing , Commemt1 Glu2: Cleaned Meter Normal [facility] Comment on above: Result Comment: PERF ORMED BY: [place] [address] PATHOLOGIST CUFF MAKER SHELBIE ALMONTE M.D. Performed By: #### G LULS #### Point of Care testing , Glucose [Mass/Vol] 117 mg/dL Normal [facility] Comment on above: Result Comment: [place] om Glucose Reference Range is dependent on time and content of last meal. Glucose of more than 200 mg/dL in a nonstressed, ambulatory subject supports the diagnosis of Diabetes Mellitus. Performed By: #### G LULS #### Point of Care testing , Glucose [Mass/Vol] 149 mg/dL Normal [facility] Comment on above: Result Comment: [place] om Glucose Reference Range is dependent on time and content of last meal. Glucose of more than 200 mg/dL in a nonstressed, ambulatory subject supports the diagnosis of Diabetes Mellitus. PERFORMED BY: [place] [address] PATHOLOGIST CUFF MAKER SHELBIE ALMONTE M.D. Performed By: #### G LULS #### Point of Care testing , Commemt1 Glu2: Cleaned Meter Normal [facility] Comment on above: Result Comment: PERF ORMED BY: [place] [address] PATHOLOGIST CUFF MAKER SHELBIE ALMONTE M.D. Performed By: #### G LULS #### Point of Care testing , Glucose [Mass/Vol] 146 mg/dL Normal [facility] Comment on above: Result Comment: [place] om Glucose Reference Range is dependent on time and content of last meal. Glucose of more than 200 mg/dL in a nonstressed, ambulatory subject supports the diagnosis of Diabetes Mellitus. Performed By: #### G LULS #### Point of Care testing , Laboratory - Microbiology an d Antimicrobial susceptibilityOrdered By: Albert Swan on 03-24-2024 SARS-CoV-2 (COVID-19) RNA BENITO+probe Ql (Unsp spec) N/A [facility] Automated basophil %Ordered By: Glendy Calabrese on 03-23-2024 Basophils/100 WBC (Bld) 0.4 % Normal . [facility] Comment on above: Performed By: #### P AB, CMP, CBC #### [address] Automated basophil countOrde red By: Glendy Calabrese on 03-23-2024 Basophils (Bld) [#/Vol] 0.0 10*3/uL Normal 0.0-0.2 [facility] Comment on above: Result Comment: PERF ORMED BY: [place] [address] PATHOLOGIST [employer]FF MAKER SHELBIE ALMONTE M.D. Performed By: #### P AB, CMP, CBC #### [address] Automated blood monocyte cou ntOrdered By: Glendy Calabrese on 03-23-2024 Monocytes (Bld) [#/Vol] 0.9 10*3/uL High 0.0-0.8 [facility] Comment on above: Performed By: #### P AB, CMP, CBC #### [address] Automated eosinophil %Ordere d By: Glendy Calabrese on 03-23-2024 Eosinophils/100 WBC (Bld) 3.3 % Normal . [facility] Comment on above: Performed By: #### P AB, CMP, CBC #### [address] Automated eosinophil countOr dered By: Glendy Calabrese on 03-23-2024 Eosinophils (Bld) [#/Vol] 0.2 10*3/uL Normal 0.0-0.45 [facility] Comment on above: Performed By: #### P AB, CMP, CBC #### [address] Automated monocyte %Ordered By: Glendy Calabrese on 03-23-2024 Monocytes/100 WBC (Bld) 12.8 % Normal . [facility] Comment on above: Performed By: #### P AB, CMP, CBC #### [address] Automated neutrophil %Ordere d By: Glendy Calabrese on 03-23-2024 Neutrophils/100 WBC (Bld) 63.1 % Normal . [facility] Comment on above: Performed By: #### P AB, CMP, CBC #### [address] Basic Metabolic Panelon 03-04 Creatinine Clr Calc Pharmacy 52.37 Normal [facility] Comment on above: Result Comment: PERF ORMED BY: [place] [address] PATHOLOGIST [employer] MAKER SHELBIE ALMONTE M.D. Performed By: #### P AB, CMP, CBC #### [address] GFR/1.73 sq M.predicted MDRD (S/P/Bld) [Vol rate/Area] 52.800 mL/min/{1.73_m2} Normal [facility] Comment on above: Performed By: #### P AB, CMP, CBC #### [address] Calcium [Mass/volume] in Ser um or PlasmaOrdered By: Glendy Calabrese on 03-23-2024 Calcium [Mass/Vol] 8.9 mg/dL Normal 8.6-10.3 [facility] Comment on above: Performed By: #### P AB, CMP, CBC #### [facility] [address] [place] [address] [place] Carbon dioxide, total [Moles /volume] in Serum or PlasmaOrdered By: Glendy Calabrese on 03-23-2024 CO2 [Moles/Vol] 27.6 mmol/L Normal 21.0-31.0 [facility] Comment on above: Performed By: #### P AB, CMP, CBC #### [place] [address] [place] Chloride [Moles/volume] in S bhavin or PlasmaOrdered By: Glendy Calabrese on 03-23-2024 Chloride [Moles/Vol] 99 mmol/L Normal 98-107 [facility] Comment on above: Performed By: #### P AB, CMP, CBC #### [facility] [address] [place] [address] Complete Blood Count Auto Di ffon 03-23-2024 Mean Corpuscular HGB Conc 33.4 g/dL Normal 32.5-35.6 [facility] Comment on above: Performed By: #### P AB, CMP, CBC #### [facility] [address] NRBC% 0.1 /100{WBC} Normal 0-0.5 [facility] Comment on above: Performed By: #### P AB, CMP, CBC #### [address] Creatinine [Mass/volume] in Serum or PlasmaOrdered By: Glendy Calabrese on 03-23-2024 Creatinine [Mass/Vol] 1.37 mg/dL High 0.70-1.30 [facility] Comment on above: Performed By: #### P AB, CMP, CBC #### [address] Erythrocyte distribution wid th [Ratio] by Automated countOrdered By: Glendy Calabrese on 03-23-2024 Erythrocyte distribution width (RBC) [Ratio] 13.2 % Normal 12.0-14.8 [facility] Comment on above: Performed By: #### P AB, CMP, CBC #### [facility] [address] [place] [address] Erythrocytes [#/volume] in B lood by Automated countOrdered By: Glendy Calabrese on 03-23-2024 RBC (Bld) [#/Vol] 2.75 10*6/uL Low 3.90-5.60 [facility] Comment on above: Performed By: #### P AB, CMP, CBC #### [address] Glucose Poct Glucometerson 0 03-23-2024 Glucose [Mass/Vol] 163 mg/dL Normal [facility] Comment on above: Result Comment: [place] om Glucose Reference Range is dependent on time and content of last meal. Glucose of more than 200 mg/dL in a nonstressed, ambulatory subject supports the diagnosis of Diabetes Mellitus. PERFORMED BY: [place] [address] PATHOLOGIST [employer] SHELBIE ALMONTE M.D. Performed By: #### P AB, CMP, CBC #### [address] Commemt1 Glu2: Cleaned Meter Normal [facility] Comment on above: Result Comment: PERF ORMED BY: [place] [address] PATHOLOGIST [employer] SHELBIE ALMONTE M.D. Performed By: #### G LULS #### Point of Care testing , Glucose [Mass/Vol] 158 mg/dL Normal [facility] Comment on above: Result Comment: [place] om Glucose Reference Range is dependent on time and content of last meal. Glucose of more than 200 mg/dL in a nonstressed, ambulatory subject supports the diagnosis of Diabetes Mellitus. Performed By: #### G LULS #### Point of Care testing , Commemt1 Glu2: Cleaned Meter Normal [facility] Comment on above: Result Comment: PERF ORMED BY: [place] [address] PATHOLOGIST [employer] SHELBIE ALMONTE M.D. Performed By: #### G LULS #### Point of Care testing , Glucose [Mass/Vol] 162 mg/dL Normal [facility] Comment on above: Result Comment: [place] om Glucose Reference Range is dependent on time and content of last meal. Glucose of more than 200 mg/dL in a nonstressed, ambulatory subject supports the diagnosis of Diabetes Mellitus. Performed By: #### G LULS #### Point of Care testing , Glucose [Mass/Vol] 129 mg/dL Normal [facility] Comment on above: Result Comment: [place] om Glucose Reference Range is dependent on time and content of last meal. Glucose of more than 200 mg/dL in a nonstressed, ambulatory subject supports the diagnosis of Diabetes Mellitus. PERFORMED BY: [address] [place] [id number] PATHOLOGIST [employer] SHELBIE ALMONTE M.D. Performed By: #### G SUPA #### Point of Care testing , Glucose [Mass/Vol] 122 mg/dL Normal [facility] Comment on above: Result Comment: [place] om Glucose Reference Range is dependent on time and content of last meal. Glucose of more than 200 mg/dL in a nonstressed, ambulatory subject supports the diagnosis of Diabetes Mellitus. PERFORMED BY: [place] [id number] PATHOLOGIST [employer] SHELBIE ALMONTE M.D. Performed By: #### G SUPA #### Point of Care testing , Glucose [Mass/volume] in Ser um or PlasmaOrdered By: Glendy Calabrese on 03-23-2024 Glucose [Mass/Vol] 109 mg/dL High 70-100 [facility] Comment on above: ADA recommended refe rence rangeRandom Glucose Reference Range is dependent on time and content of last meal. Glucose of more than 200 mg/dL in a nonstressed, ambulatory subject supports the diagnosis of Diabetes Mellitus. Result Comment: [place] Glucose Reference Range is dependent on time and content of last meal. Glucose of more than 200 mg/dL in a nonstressed, ambulatory subject supports the diagnosis of Diabetes Mellitus. ADA recommended reference range Performed By: #### P AB, CMP, CBC #### [facility] [address] [place] [address] Hematocrit [Volume Fraction] of Blood by Automated countOrdered By: Glendy Calabrese on 03-23-2024 Hematocrit (Bld) [Volume fraction] 28.1 % Low 38.8-50.0 [facility] Comment on above: Performed By: #### P AB, CMP, CBC #### [facility] [address] [place] [address] Hemoglobin [Mass/volume] in BloodOrdered By: Glendy Calabrese on 03-23-2024 Hemoglobin (Bld) [Mass/Vol] 9.4 g/dL Low 13.0-17.0 [facility] Comment on above: Performed By: #### P AB, CMP, CBC #### [address] Leukocytes [#/volume] correc nadine for nucleated erythrocytes in Blood by Automated counOrdered By: Glendy Calabrese on 03-23-2024 WBC corrected for nucl RBC Auto (Bld) [#/Vol] 7.2 10*3/uL 4.1-10.5 [facility] Leukocytes [#/volume] in Blo od by Automated countOrdered By: Glendy Calabrese on 03-23-2024 WBC (Bld) [#/Vol] 7.2 10*3/uL Normal 4.1-10.5 [facility] Comment on above: Performed By: #### P AB, CMP, CBC #### [address] Lymphocytes [#/volume] in Bl ood by Automated countOrdered By: Glendy Calabrese on 03-23-2024 Lymphocytes (Bld) [#/Vol] 1.5 10*3/uL Normal 1.00-4.8 [facility] Comment on above: Performed By: #### P AB, CMP, CBC #### [address] Lymphocytes/100 leukocytes i n Blood by Automated countOrdered By: Glendy Calabrese on 03-23-2024 Lymphocytes/100 WBC (Bld) 20.4 % Normal . [facility] Comment on above: Performed By: #### P AB, CMP, CBC #### [address] MCH [Entitic mass] by Automa nadine countOrdered By: Glendy Calabrese on 03-23-2024 MCH (RBC) [Entitic mass] 34.1 pg Normal 27.5-35.2 [facility] Comment on above: Performed By: #### P AB, CMP, CBC #### [address] MCHC Auto (RBC) [Mass/Vol]Or dered By: Glendy Calabrese on 03-23-2024 MCHC (RBC) [Mass/Vol] 33.4 g/dL 32.5-35.6 [facility] MCV [Entitic volume] by Auto mated countOrdered By: Glendy Calabrese on 03-23-2024 MCV (RBC) [Entitic vol] 102.1 fL High 83.5-101 [facility] Comment on above: Performed By: #### P AB, CMP, CBC #### [facility] [address] Neutrophils [#/volume] in Bl ood by Automated countOrdered By: Glendy Calabrese on 03-23-2024 Neutrophils (Bld) [#/Vol] 4.6 10*3/uL Normal 1.8-7.7 [facility] Comment on above: Performed By: #### P AB, CMP, CBC #### [address] No Panel InformationOrdered By: Glendy Calabrese on 03-23-2024 Estimated GFR (CKD-EPI) 52.800 mL/Min [facility] Creatinine Clearance (Chem 52.37 [facility] Nucleated erythrocytes [Pres ence] in Blood by Automated countOrdered By: Glendy Calabrese on 03-23-2024 Nucleated RBC Auto Ql (Bld) 0.1 /100{WBC} 0-0.5 [facility] Platelet mean volume [Entiti c volume] in Blood by Automated countOrdered By: Glendy Calabrese on 03-23-2024 Platelet mean volume (Bld) [Entitic vol] 8.0 fL Normal 6.6-10.1 [facility] Comment on above: Performed By: #### P AB, CMP, CBC #### [facility] [address] [place] [address] Platelets [#/volume] in Bloo d by Automated countOrdered By: Glendy Calabrese on 03-23-2024 Platelets (Bld) [#/Vol] 242 10*3/uL Normal 150-450 [facility] Comment on above: Performed By: #### P AB, CMP, CBC #### [place] [address] [place] Potassium [Moles/volume] in Serum or PlasmaOrdered By: Glendy Calabrese on 03-23-2024 Potassium [Moles/Vol] 4.3 mmol/L Normal 3.5-5.1 [facility] Comment on above: Performed By: #### P AB, CMP, CBC #### [address] Serum or plasma anion gap de terminationOrdered By: Glendy Calabrese on 03-23-2024 Anion gap [Moles/Vol] 11.7 mmol/L Normal 6.0-15.0 [facility] Comment on above: Performed By: #### P AB, CMP, CBC #### [address] Sodium [Moles/volume] in Ser um or PlasmaOrdered By: Glendy Calabrese on 03-23-2024 Sodium [Moles/Vol] 134 mmol/L Low 136-145 [facility] Comment on above: Performed By: #### P AB, CMP, CBC #### [address] Urea nitrogen [Mass/volume] in Serum or PlasmaOrdered By: Glendy Calabrese on 03-23-2024 Urea nitrogen [Mass/Vol] 20 mg/dL Normal 7-25 [facility] Comment on above: Performed By: #### P AB, CMP, CBC #### [address] Glucose Poct Glucometerson 0 03-22-2024 Glucose [Mass/Vol] 210 mg/dL Normal [facility] Comment on above: Result Comment: [facility] Glucose Reference Range is dependent on time and content of last meal. Glucose of more than 200 mg/dL in a nonstressed, ambulatory subject supports the diagnosis of Diabetes Mellitus. PERFORMED BY: [place] [address] PATHOLOGIST [employer] SHELBIE ALMONTE M.D. Performed By: #### G LULS #### Point of Care testing , Glucose [Mass/Vol] 116 mg/dL Normal [facility] Comment on above: Result Comment: [facility] Glucose Reference Range is dependent on time and content of last meal. Glucose of more than 200 mg/dL in a nonstressed, ambulatory subject supports the diagnosis of Diabetes Mellitus. PERFORMED BY: [address] [place] [address] PATHOLOGIST [employer] SHELBIE ALMONTE M.D. Performed By: #### G LULS #### Point of Care testing , Glucose [Mass/Vol] 126 mg/dL Normal [facility] Comment on above: Result Comment: [facility] Glucose Reference Range is dependent on time and content of last meal. Glucose of more than 200 mg/dL in a nonstressed, ambulatory subject supports the diagnosis of Diabetes Mellitus. PERFORMED BY: [address] [place] [address] PATHOLOGIST [employer] SHELBIE ALMONTE M.D. Performed By: #### G LULS #### Point of Care testing , Glucose [Mass/Vol] 125 mg/dL Normal [facility] Comment on above: Result Comment: [facility] Glucose Reference Range is dependent on time and content of last meal. Glucose of more than 200 mg/dL in a nonstressed, ambulatory subject supports the diagnosis of Diabetes Mellitus. PERFORMED BY: [address] [place] [address] PATHOLOGIST [employer] SHELBIE ALMONTE M.D. Performed By: #### G LULS #### Point of Care testing , Glucose Poct Glucometerson 0 03-21-2024 Glucose [Mass/Vol] 222 mg/dL Normal [facility] Comment on above: Result Comment: [facility] Glucose Reference Range is dependent on time and content of last meal. Glucose of more than 200 mg/dL in a nonstressed, ambulatory subject supports the diagnosis of Diabetes Mellitus. PERFORMED BY: [address] [place] [address] PATHOLOGIST [employer] SHELBIE ALMONTE M.D. Performed By: #### G LULS #### Point of Care testing , Commemt1 Glu2: Cleaned Meter Normal [facility] Comment on above: Result Comment: PERF ORMED BY: [place] [address] PATHOLOGIST [employer] SHELBIE ALMONTE M.D. Performed By: #### G LULS #### Point of Care testing , Glucose [Mass/Vol] 117 mg/dL Normal [facility] Comment on above: Result Comment: [place] Glucose Reference Range is dependent on time and content of last meal. Glucose of more than 200 mg/dL in a nonstressed, ambulatory subject supports the diagnosis of Diabetes Mellitus. Performed By: #### G LULS #### Point of Care testing , Commemt1 Glu2: Cleaned Meter Normal [facility] Comment on above: Result Comment: PERF ORMED BY: [place] [address] PATHOLOGIST [employer] SHELBIE ALMONTE M.D. Performed By: #### G LULS #### Point of Care testing , Glucose [Mass/Vol] 178 mg/dL Normal [facility] Comment on above: Result Comment: [place] Glucose Reference Range is dependent on time and content of last meal. Glucose of more than 200 mg/dL in a nonstressed, ambulatory subject supports the diagnosis of Diabetes Mellitus. Performed By: #### G LULS #### Point of Care testing , Glucose [Mass/Vol] 112 mg/dL Normal [facility] Comment on above: Result Comment: [place] Glucose Reference Range is dependent on time and content of last meal. Glucose of more than 200 mg/dL in a nonstressed, ambulatory subject supports the diagnosis of Diabetes Mellitus. PERFORMED BY: [place] [address] PATHOLOGIST [employer] MA[employer] SHELBIE ALMONTE M.D. Performed By: #### P AB, CMP, CBC #### [address] Basic Metabolic Panelon 07- Anion gap [Moles/Vol] Not performed Normal 6.0-15.0 [facility] Comment on above: Performed By: #### P AB, CMP, CBC #### [address] Calcium [Mass/Vol] 8.7 mg/dL Normal 8.6-10.3 [facility] Comment on above: Performed By: #### P AB, CMP, CBC #### [address] Chloride [Moles/Vol] 101 mmol/L Normal 98-107 [facility] Comment on above: Performed By: #### P AB, CMP, CBC #### [address] CO2 [Moles/Vol] 26.8 mmol/L Normal 21.0-31.0 [facility] Comment on above: Performed By: #### P AB, CMP, CBC #### [address] Creatinine [Mass/Vol] 1.50 mg/dL High 0.70-1.30 [facility] Comment on above: Performed By: #### P AB, CMP, CBC #### [place] [address] [place] Creatinine Clr Calc Pharmacy 47.83 Normal [facility] Comment on above: Result Comment: PERF ORMED BY: [place] [address] PATHOLOGIST [employer] MA[employer] SHELBIE ALMONTE M.D. Performed By: #### P AB, CMP, CBC #### [address] GFR/1.73 sq M.predicted MDRD (S/P/Bld) [Vol rate/Area] 47.358 mL/min/{1.73_m2} Normal [facility] Comment on above: Performed By: #### P AB, CMP, CBC #### [address] Glucose [Mass/Vol] 97 mg/dL Normal 70-100 [facility] Comment on above: Result Comment: [facility] Glucose Reference Range is dependent on time and content of last meal. Glucose of more than 200 mg/dL in a nonstressed, ambulatory subject supports the diagnosis of Diabetes Mellitus. ADA recommended reference range Performed By: #### P AB, CMP, CBC #### [address] Potassium Normal 3.5-5.1 [facility] Comment on above: Result Comment: Spec imen hemolyzed, redraw requested Performed By: #### P AB, CMP, CBC #### [address] Sodium [Moles/Vol] 135 mmol/L Low 136-145 [facility] Comment on above: Performed By: #### P AB, CMP, CBC #### [address] Urea nitrogen [Mass/Vol] 25 mg/dL Normal 7-25 [facility] Comment on above: Performed By: #### P AB, CMP, CBC #### [address] Complete Blood Count Auto Di ffon 03-20-2024 Basophils (Bld) [#/Vol] 0.0 10*3/uL Normal 0.0-0.2 [facility] Comment on above: Result Comment: PERF ORMED BY: [place] [address] PATHOLOGIST [employer] SHELBIE ALMONTE M.D. Performed By: #### P AB, CMP, CBC #### [place] [address] [place] Basophils/100 WBC (Bld) 0.5 % Normal . T [facility] Comment on above: Performed By: #### P AB, CMP, CBC #### [place] [address] [place] Eosinophils (Bld) [#/Vol] 0.2 10*3/uL Normal 0.0-0.45 [facility] Comment on above: Performed By: #### P AB, CMP, CBC #### [place] [address] [place] Eosinophils/100 WBC (Bld) 2.9 % Normal . [facility] Comment on above: Performed By: #### P AB, CMP, CBC #### [address] Erythrocyte distribution width (RBC) [Ratio] 13.3 % Normal 12.0-14.8 [facility] Comment on above: Performed By: #### P AB, CMP, CBC #### [address] Hematocrit (Bld) [Volume fraction] 27.7 % Low 38.8-50.0 [facility] Comment on above: Performed By: #### P AB, CMP, CBC #### [address] Hemoglobin (Bld) [Mass/Vol] 9.3 g/dL Low 13.0-17.0 [facility] Comment on above: Performed By: #### P AB, CMP, CBC #### [address] Lymphocytes (Bld) [#/Vol] 2.1 10*3/uL Normal 1.00-4.8 [facility] Comment on above: Performed By: #### P AB, CMP, CBC #### [address] Lymphocytes/100 WBC (Bld) 25.9 % Normal . [facility] Comment on above: Performed By: #### P AB, CMP, CBC #### [address] MCH (RBC) [Entitic mass] 35.1 pg Normal 27.5-35.2 [facility] Comment on above: Performed By: #### P AB, CMP, CBC #### [address] MCV (RBC) [Entitic vol] 104.1 fL High 83.5-101 T [facility] Comment on above: Performed By: #### P AB, CMP, CBC #### [address] Mean Corpuscular HGB Conc 33.7 g/dL Normal 32.5-35.6 [facility] Comment on above: Performed By: #### P AB, CMP, CBC #### [address] Monocytes (Bld) [#/Vol] 1.1 10*3/uL High 0.0-0.8 [facility] Comment on above: Performed By: #### P AB, CMP, CBC #### [address] Monocytes/100 WBC (Bld) 13.5 % Normal . T tara [facility] Comment on above: Performed By: #### P AB, CMP, CBC #### [address] Neutrophils (Bld) [#/Vol] 4.7 10*3/uL Normal 1.8-7.7 [facility] Comment on above: Performed By: #### P AB, CMP, CBC #### [address] Neutrophils/100 WBC (Bld) 57.2 % Normal . [facility] Comment on above: Performed By: #### P AB, CMP, CBC #### [address] NRBC% 0.1 /100{WBC} Normal 0-0.5 [facility] Comment on above: Performed By: #### P AB, CMP, CBC #### [address] Platelet mean volume (Bld) [Entitic vol] 8.5 fL Normal 6.6-10.1 [facility] Comment on above: Performed By: #### P AB, CMP, CBC #### [address] Platelets (Bld) [#/Vol] 244 10*3/uL Normal 150-450 [facility] Comment on above: Performed By: #### P AB, CMP, CBC #### [address] RBC (Bld) [#/Vol] 2.66 10*6/uL Low 3.90-5.60 [facility] Comment on above: Performed By: #### P AB, CMP, CBC #### [address] WBC (Bld) [#/Vol] 8.1 10*3/uL Normal 4.1-10.5 [facility] Comment on above: Performed By: #### P AB, CMP, CBC #### [address] Glucose Poct Glucometerson 0 03-20-2024 Commemt1 Glu2: Cleaned Meter Normal [facility] Comment on above: Performed By: #### G LULS #### Point of Care testing , Commemt2 WILL NOTIFY DR/RN Normal [facility] Comment on above: Result Comment: PERF ORMED BY: [place] [address] PATHOLOGIST [employer] SHELBIE ALMONTE M.D. Performed By: #### G LULS #### Point of Care testing , Glucose [Mass/Vol] 159 mg/dL Normal [facility] Comment on above: Result Comment: [facility] Glucose Reference Range is dependent on time and content of last meal. Glucose of more than 200 mg/dL in a nonstressed, ambulatory subject supports the diagnosis of Diabetes Mellitus. Performed By: #### G LULS #### Point of Care testing , Glucose [Mass/Vol] 152 mg/dL Normal [facility] Comment on above: Result Comment: [place] Glucose Reference Range is dependent on time and content of last meal. Glucose of more than 200 mg/dL in a nonstressed, ambulatory subject supports the diagnosis of Diabetes Mellitus. PERFORMED BY: [place] [address] PATHOLOGIST [employer] MA[employer] SHELBIE ALMONTE M.D. Performed By: #### P AB, CMP, CBC #### [address] Glucose [Mass/Vol] 124 mg/dL Normal [facility] Comment on above: Result Comment: [facility] Glucose Reference Range is dependent on time and content of last meal. Glucose of more than 200 mg/dL in a nonstressed, ambulatory subject supports the diagnosis of Diabetes Mellitus. PERFORMED BY: [place] [address] PATHOLOGIST [employer] MA[employer] SHELBIE ALMONTE M.D. Performed By: #### G LULS #### Point of Care testing , Glucose [Mass/Vol] 118 mg/dL Normal [facility] Comment on above: Result Comment: [facility] Glucose Reference Range is dependent on time and content of last meal. Glucose of more than 200 mg/dL in a nonstressed, ambulatory subject supports the diagnosis of Diabetes Mellitus. PERFORMED BY: [place] [address] PATHOLOGIST [employer] MA[employer] SHELBIE ALMONTE M.D. Performed By: #### G LULS #### Point of Care testing , No Panel InformationOrdered By: Albert Swan on 03-20-2024 Bedside Glucose #[address] Comment Will notify dr/rn [facility] Redraw Potassiumon 4 Potassium [Moles/Vol] 4.7 mmol/L Normal 3.5-5.1 [facility] Comment on above: Order Comment: 1ST S pecimen hemolyzed, redraw requested Result Comment: PERF ORMED BY: [place] [address] PATHOLOGIST [employer] MAK[employer] SHELBIE ALMONTE M.D. Performed By: #### P AB, CMP, CBC #### [facility] [address] [place], [place] [id number] [facility] Basic Metabolic Panelon 03-03 Anion gap [Moles/Vol] 11.0 mmol/L Normal 6.0-15.0 Th e [facility] Comment on above: Performed By: #### C BC, BMP #### [facility] [address] [place], [place] [id number] [facility] Calcium [Mass/Vol] 8.8 mg/dL Normal 8.6-10.3 [facility] Comment on above: Performed By: #### C BC, BMP #### [address] Chloride [Moles/Vol] 101 mmol/L Normal 98-107 [facility] Comment on above: Performed By: #### C BC, BMP #### [address] CO2 [Moles/Vol] 28.4 mmol/L Normal 21.0-31.0 [facility] Comment on above: Performed By: #### C BC, BMP #### [address] Creatinine [Mass/Vol] 1.48 mg/dL High 0.70-1.30 [facility] Comment on above: Performed By: #### C BC, BMP #### [address] Creatinine Clr Calc Pharmacy 48.48 Normal [facility] Comment on above: Result Comment: PERF ORMED BY: [place] [address] PATHOLOGIST [employer] MA[employer] SHELBIE ALMONTE M.D. Performed By: #### C BC, BMP #### [address] GFR/1.73 sq M.predicted MDRD (S/P/Bld) [Vol rate/Area] 48.126 mL/min/{1.73_m2} Normal [facility] Comment on above: Performed By: #### C BC, BMP #### [address] Glucose [Mass/Vol] 108 mg/dL High 70-100 [facility] Comment on above: Result Comment: [place] Glucose Reference Range is dependent on time and content of last meal. Glucose of more than 200 mg/dL in a nonstressed, ambulatory subject supports the diagnosis of Diabetes Mellitus. ADA recommended reference range Performed By: #### C BC, BMP #### [address] Potassium [Moles/Vol] 4.4 mmol/L Normal 3.5-5.1 [facility] Comment on above: Performed By: #### C BC, BMP #### [address] Sodium [Moles/Vol] 136 mmol/L Normal 136-145 [facility] Comment on above: Performed By: #### C BC, BMP #### [address] Urea nitrogen [Mass/Vol] 24 mg/dL Normal 7-25 [facility] Comment on above: Performed By: #### C BC, BMP #### [address] Complete Blood Count Auto Di ffon 03-19-2024 Basophils (Bld) [#/Vol] 0.0 10*3/uL Normal 0.0-0.2 [facility] Comment on above: Result Comment: PERF ORMED BY: [place] [address] PATHOLOGIST [employer] SHELBIE ALMONTE M.D. Performed By: #### P AB, CMP, CBC #### [address] Basophils/100 WBC (Bld) 0.4 % Normal . [facility] Comment on above: Performed By: #### P AB, CMP, CBC #### [address] Eosinophils (Bld) [#/Vol] 0.1 10*3/uL Normal 0.0-0.45 [facility] Comment on above: Performed By: #### P AB, CMP, CBC #### [address] Eosinophils/100 WBC (Bld) 1.9 % Normal . [facility] Comment on above: Performed By: #### P AB, CMP, CBC #### [address] Erythrocyte distribution width (RBC) [Ratio] 13.2 % Normal 12.0-14.8 [facility] Comment on above: Performed By: #### P AB, CMP, CBC #### [address] Hematocrit (Bld) [Volume fraction] 28.2 % Low 38.8-50.0 [facility] Comment on above: Performed By: #### P AB, CMP, CBC #### [address] Hemoglobin (Bld) [Mass/Vol] 9.5 g/dL Low 13.0-17.0 [facility] Comment on above: Performed By: #### P AB, CMP, CBC #### [address] Lymphocytes (Bld) [#/Vol] 1.3 10*3/uL Normal 1.00-4.8 [facility] Comment on above: Performed By: #### P AB, CMP, CBC #### [address] Lymphocytes/100 WBC (Bld) 17.6 % Normal . [facility] Comment on above: Performed By: #### P AB, CMP, CBC #### [address] MCH (RBC) [Entitic mass] 34.8 pg Normal 27.5-35.2 [facility] Comment on above: Performed By: #### P AB, CMP, CBC #### [address] MCV (RBC) [Entitic vol] 103.1 fL High 83.5-101 T [facility] Comment on above: Performed By: #### P AB, CMP, CBC #### [address] Mean Corpuscular HGB Conc 33.8 g/dL Normal 32.5-35.6 [facility] Comment on above: Performed By: #### P AB, CMP, CBC #### [address] Monocytes (Bld) [#/Vol] 1.0 10*3/uL High 0.0-0.8 [facility] Comment on above: Performed By: #### P AB, CMP, CBC #### [facility] [address] [place] [address] [place] Monocytes/100 WBC (Bld) 12.8 % Normal . T [facility] Comment on above: Performed By: #### P AB, CMP, CBC #### [facility] [address] [place] [address] [place] Neutrophils (Bld) [#/Vol] 5.1 10*3/uL Normal 1.8-7.7 [facility] Comment on above: Performed By: #### P AB, CMP, CBC #### [facility] [address] Neutrophils/100 WBC (Bld) 67.3 % Normal . [facility] Comment on above: Performed By: #### P AB, CMP, CBC #### [facility] [address] NRBC% 0.0 /100{WBC} Normal 0-0.5 [facility] Comment on above: Performed By: #### P AB, CMP, CBC #### [facility] [address] Platelet mean volume (Bld) [Entitic vol] 8.6 fL Normal 6.6-10.1 [facility] Comment on above: Performed By: #### P AB, CMP, CBC #### [facility] [address] [place] [address] [place] Platelets (Bld) [#/Vol] 201 10*3/uL Normal 150-450 [facility] Comment on above: Performed By: #### P AB, CMP, CBC #### [facility] [address] [place] [address] [place] RBC (Bld) [#/Vol] 2.73 10*6/uL Low 3.90-5.60 [facility] Comment on above: Performed By: #### P AB, CMP, CBC #### [facility] [address] [place] [address] [place] WBC (Bld) [#/Vol] 7.7 10*3/uL Normal 4.1-10.5 [facility] Comment on above: Performed By: #### P AB, CMP, CBC #### [address] Glucose Poct Glucometerson 0 03-19-2024 Glucose [Mass/Vol] 231 mg/dL Normal [facility] Comment on above: Result Comment: [place] om Glucose Reference Range is dependent on time and content of last meal. Glucose of more than 200 mg/dL in a nonstressed, ambulatory subject supports the diagnosis of Diabetes Mellitus. PERFORMED BY: [place] [address] PATHOLOGIST [employer] MA[employer] SHELBIE ALMONTE M.D. Performed By: #### G LULS #### Point of Care testing , Glucose [Mass/Vol] 123 mg/dL Normal [facility] Comment on above: Result Comment: [place] om Glucose Reference Range is dependent on time and content of last meal. Glucose of more than 200 mg/dL in a nonstressed, ambulatory subject supports the diagnosis of Diabetes Mellitus. PERFORMED BY: [place] [address] PATHOLOGIST [employer] SHELBIE ALMONTE M.D. Performed By: #### G LULS #### Point of Care testing , Glucose [Mass/Vol] 139 mg/dL Normal [facility] Comment on above: Result Comment: [place] om Glucose Reference Range is dependent on time and content of last meal. Glucose of more than 200 mg/dL in a nonstressed, ambulatory subject supports the diagnosis of Diabetes Mellitus. PERFORMED BY: [place] [address] PATHOLOGIST [employer] MA[employer] SHELBIE ALMONTE M.D. Performed By: #### G LULS #### Point of Care testing , Glucose [Mass/Vol] 116 mg/dL Normal [facility] Comment on above: Result Comment: [place] om Glucose Reference Range is dependent on time and content of last meal. Glucose of more than 200 mg/dL in a nonstressed, ambulatory subject supports the diagnosis of Diabetes Mellitus. PERFORMED BY: [place] [address] PATHOLOGIST [employer] MA[employer] SHELBIE ALMONTE M.D. Performed By: #### G LULS #### Point of Care testing , Bacteria [Presence] in Urine by AutomatedOrdered By: Albert Swan on 03-18-2024 Bacteria Auto Ql (U) 4+ [HPF] High None Seen [facility] Bilirubin Test strip Ql (U)O rdered By: Albert Saundersey on 03-18-2024 Bilirubin Ql (U) Negative Negative [facility] Color of Urine by AutoOrdere d By: Albert Saundersey on 03-18-2024 Color (U) Yellow Normal Yellow [facility] Comment on above: Order Comment: Name Collection Type:: Clean-Voided Midstream Performed By: #### P AB, CMP, CBC #### [facility] [address] [place] [address] [place] Dipstick and Microscopicon 0 03-18-2024 Bacteria,Urine 4+ High None Seen [facility] Comment on above: Order Comment: Name Collection Type:: Clean-Voided Midstream Performed By: #### P AB, CMP, CBC #### [facility] [address] [place] [address] [place] Bilirubin,Urine Negative Normal Negative [facility] Comment on above: Order Comment: Name Collection Type:: Clean-Voided Midstream Performed By: #### P AB, CMP, CBC #### [facility] [address] [place] [id number] [place] Glucose Ql (U) Normal Normal Normal [facility] Comment on above: Order Comment: Name Collection Type:: Clean-Voided Midstream Performed By: #### P AB, CMP, CBC #### [facility] [address] [place] [id number] [place] Hyaline Casts,Urine 9-19 High 0-8 [facility] Comment on above: Order Comment: Name Collection Type:: Clean-Voided Midstream Result Comment: PERF ORMED BY: [place] [address] PATHOLOGIST [employer] MAK[employer] SHELBIE ALMONTE M.D. Performed By: #### P AB, CMP, CBC #### [facility] [address] [place] [address] [place] Nitrite,Urine Negative Normal Negative [facility] Comment on above: Order Comment: Name Collection Type:: Clean-Voided Midstream Performed By: #### P AB, CMP, CBC #### [address] Occult Blood,Urine 1+ High Negative [facility] Comment on above: Order Comment: Name Collection Type:: Clean-Voided Midstream Result Comment: PERF ORMED BY: [place] [address] PATHOLOGIST [employer] MAK[employer] SHELBIE ALMONTE M.D. Performed By: #### P AB, CMP, CBC #### [address] RBC,Urine 5-9 High 0-4 [facility] Comment on above: Order Comment: Name Collection Type:: Clean-Voided Midstream Performed By: #### P AB, CMP, CBC #### [address] Specificy [place],Urine 1.018 Normal 1.00 1-1.03 0 [facility] Comment on above: Order Comment: Name Collection Type:: Clean-Voided Midstream Performed By: #### P AB, CMP, CBC #### [place] [address] [place] Squamous Epithelial Cell,Urine 1-2 Normal 0-2 [facility] Comment on above: Order Comment: Name Collection Type:: Clean-Voided Midstream Performed By: #### P AB, CMP, CBC #### [place] [address] [place] Triple Phosphate Crystal,Urine Rare Normal [facility] Comment on above: Order Comment: Name Collection Type:: Clean-Voided Midstream Performed By: #### P AB, CMP, CBC #### [address] Urobilinogen,Urine Normal Normal Normal [facility] Comment on above: Order Comment: Name Collection Type:: Clean-Voided Midstream Performed By: #### P AB, CMP, CBC #### [facility] [address] WBC CLUMP, Urine Many High None Seen [facility] Comment on above: Order Comment: Name Collection Type:: Clean-Voided Midstream Performed By: #### P AB, CMP, CBC #### [facility] [address] WBC,Urine Innumerable High 0-4 [facility] Comment on above: Order Comment: Name Collection Type:: Clean-Voided Midstream Performed By: #### P AB, CMP, CBC #### [facility] [address] Epithelial cells.squamous [# /area] in Urine sediment by Automated countOrdered By: Albert Swan on 03-18-2024 Epithelial cells.squamous Auto (Urine sed) [#/Area] 1-2 [HPF] 0-2 [facility] Erythrocytes [#/area] in Uri ne sediment by Automated countOrdered By: Albert Swan on 03-18-2024 RBC Auto (Urine sed) [#/Area] 5-9 [HPF] High 0-4 [facility] Glucose Poct Glucometerson 0 03-18-2024 Commemt1 Glu2: Cleaned Meter Normal [facility] Comment on above: Result Comment: PERF ORMED BY: [place] [address] PATHOLOGIST [employer] MAK[employer] SHELBIE ALMONTE M.D. Performed By: #### G LULS #### Point of Care testing , Glucose [Mass/Vol] 199 mg/dL Normal [facility] Comment on above: Result Comment: [place] Glucose Reference Range is dependent on time and content of last meal. Glucose of more than 200 mg/dL in a nonstressed, ambulatory subject supports the diagnosis of Diabetes Mellitus. Performed By: #### G LULS #### Point of Care testing , Glucose [Mass/Vol] 164 mg/dL Normal [facility] Comment on above: Result Comment: [place] Glucose Reference Range is dependent on time and content of last meal. Glucose of more than 200 mg/dL in a nonstressed, ambulatory subject supports the diagnosis of Diabetes Mellitus. PERFORMED BY: [place] [address] PATHOLOGIST [employer] MAKER SHELBIE ALMONTE M.D. Performed By: #### G LULS #### Point of Care testing , Glucose [Mass/Vol] 171 mg/dL Normal [facility] Comment on above: Result Comment: [facility] Glucose Reference Range is dependent on time and content of last meal. Glucose of more than 200 mg/dL in a nonstressed, ambulatory subject supports the diagnosis of Diabetes Mellitus. PERFORMED BY: [place] [address] PATHOLOGIST [employer] MAKER SHELBIE ALMONTE M.D. Performed By: #### P AB, CMP, CBC #### [address] Glucose [Mass/Vol] 142 mg/dL Normal [facility] Comment on above: Result Comment: [facility] Glucose Reference Range is dependent on time and content of last meal. Glucose of more than 200 mg/dL in a nonstressed, ambulatory subject supports the diagnosis of Diabetes Mellitus. PERFORMED BY: [place] [address] PATHOLOGIST [employer] MAKER SHELBIE ALMONTE M.D. Performed By: #### P AB, CMP, CBC #### [address] Glucose [Mass/volume] in Uri ne by Test stripOrdered By: Albert Swan on 03-18-2024 Glucose Test strip (U) [Mass/Vol] Normal mg/dL Normal [facility] Hemoglobin Test strip Ql (U) Ordered By: Albert Swan on 03-18-2024 Hemoglobin Ql (U) 1+ High Negative [facility] Hyaline casts [#/area] in Ur ine sediment by Automated countOrdered By: Albert Swan on 03-18-2024 Hyaline casts Auto (Urine sed) [#/Area] 9-19 [LPF] High 0-8 [facility] Ketones [Presence] in Urine by Test stripOrdered By: Albert Swan on 03-18-2024 Ketones Ql (U) Negative Normal Negative [facility] Comment on above: Order Comment: Name Collection Type:: Clean-Voided Midstream Performed By: #### P AB, CMP, CBC #### [facility] [address] Leukocyte clumps [Presence] in Urine by AutomatedOrdered By: Albert Swan on 03-18-2024 Leukocyte clumps Auto Ql (U) Many [LPF] High None Seen [facility] Leukocyte esterase [Presence ] in Urine by Test stripOrdered By: Albert Swan on 03-18-2024 Leukocyte esterase Test strip Ql (U) 4+ High Negative [facility] Comment on above: Order Comment: Name Collection Type:: Clean-Voided Midstream Performed By: #### P AB, CMP, CBC #### [facility] [address] [place] [address] [place] Leukocytes [#/area] in Urine sediment by Automated countOrdered By: Albert Swan on 03-18-2024 WBC Auto (Urine sed) [#/Area] Innumerable [HPF] High 0-4 [facility] Nitrite Test strip Ql (U)Ord ered By: Albert Swan on 03-18-2024 Nitrite Ql (U) Negative Negative [facility] Protein [Mass/volume] in Uri ne by Test stripOrdered By: Albert Swan on 03-18-2024 Protein (U) [Mass/Vol] 30 mg/dL High Negative [facility] Comment on above: Order Comment: Name Collection Type:: Clean-Voided Midstream Performed By: #### P AB, CMP, CBC #### [facility] [address] [place] [address] [place] Specific gravity Test strip (U) [Rel density]Ordered By: Albert Swan on 03-18-2024 Specific gravity (U) [Rel density] 1.018 1.001-1.[address] [facility] Triple phosphate crystals [P resence] in Urine sediment by Computer assisted methodOrdered By: Albert Swan on 03-18-2024 Triple phosphate crystals [Presence] in Urine sediment by Computer assisted method Rare [HPF] [facility] Urine Cultureon 03-18-2024 Bacteria identified Cx Nom (U) ORGANISM: Proteus mirabilis (O:PROMIR) [place] Count >100,000 Aerobic BENJAMIN Charge (NMIC56) SUSCEPTIBILITY [...] RESISTANT TO ALL B-LACTAM DRUGS. PERFORMED BY: [place] [address] PATHOLOGIST [employer]FF MAKER SHELBIE ALMONTE M.D. Normal [facility] Comment on above: Performed By: #### P AB, CMP, CBC #### [address] Urine appearanceOrdered By: Albert Swan on 03-18-2024 Appearance (U) Cloudy Critically abnormal Clear [facility] Comment on above: Order Comment: Name Collection Type:: Clean-Voided Midstream Performed By: #### P AB, CMP, CBC #### [facility] [address] Urine culture routineOrdered By: Albert Swan on 03-18-2024 Bacteria identified Cx Nom (U) Proteus mirabilis Abnormal [facility] Urobilinogen Test strip (U) [Mass/Vol]Ordered By: Albert Swan on 03-18-2024 Urobilinogen (U) [Mass/Vol] Normal mg/dL Normal [facility] pH of Urine by Test stripOrd ered By: Albert Swan on 03-18-2024 pH (U) 7.5 [pH] Normal 5.0-9.0 [facility] Comment on above: Order Comment: Name Collection Type:: Clean-Voided Midstream Performed By: #### P AB, CMP, CBC #### [address] Alanine aminotransferase [En zymatic activity/volume] in Serum or PlasmaOrdered By: Albert Swan on 03-17-2024 ALT [Catalytic activity/Vol] 35 U/L Normal 7-52 [facility] Comment on above: Performed By: #### P AB, CMP, CBC #### [facility] [address] [place] [address] [place] Albumin [Mass/volume] in Ser um or Plasma by Bromocresol green (BCG) dye binding methoOrdered By: Albert Swan on 03-17-2024 Albumin BCG dye [Mass/Vol] 3.3 g/dL Low 3.5-5.7 [facility] Alkaline phosphatase [Enzyma tic activity/volume] in Serum or PlasmaOrdered By: Albert Swan on 03-17-2024 ALP [Catalytic activity/Vol] 76 U/L Normal 34-104 [facility] Comment on above: Performed By: #### P AB, CMP, CBC #### [facility] [address] [place] [address] [place] Aspartate aminotransferase [ Enzymatic activity/volume] in Serum or PlasmaOrdered By: Albert Swan on 03-17-2024 AST [Catalytic activity/Vol] 70 U/L High 13-39 [facility] Comment on above: Performed By: #### P AB, CMP, CBC #### [facility] [address] Bilirubin.total [Mass/volume ] in Serum or PlasmaOrdered By: Albert Swan on 03-17-2024 Bilirubin [Mass/Vol] 0.5 mg/dL Normal 0.3-1.0 [facility] Comment on above: Performed By: #### P AB, CMP, CBC #### [facility] [address] COVID-19 FRon 03-17-2024 SARS-CoV-2 (COVID-19) RNA BENITO+probe Ql (Unsp spec) Positive Critically abnormal Negative [facility] Comment on above: Order Comment: Healt hcare Worker?: N Result Comment: Positive results will only be called to Providers for Inpatients Results called at 1306 on 03/17/24 Testing for SARS-CoV-2 by RT-PCR This test was developed and its performance characteristics determined by [employer] and validated at the [facility]. This test has not been FDA cleared [...] is terminated or revoked sooner. PERFORMED BY: [place] [address] PATHOLOGIST [employer] MAKER SHELBIE ALMONTE M.D. Performed By: #### G LULS #### Point of Care testing , Complete Blood Count Auto Di ffon 03-17-2024 Basophils (Bld) [#/Vol] 0.0 10*3/uL Normal 0.0-0.2 [facility] Comment on above: Result Comment: PERF ORMED BY: [place] [address] PATHOLOGIST [employer] MAKER SHELBIE ALMONTE M.D. Performed By: #### P AB, CMP, CBC #### [address] Basophils/100 WBC (Bld) 0.3 % Normal . T [facility] Comment on above: Performed By: #### P AB, CMP, CBC #### [place] [address] [place] Eosinophils (Bld) [#/Vol] 0.2 10*3/uL Normal 0.0-0.45 [facility] Comment on above: Performed By: #### P AB, CMP, CBC #### [address] Eosinophils/100 WBC (Bld) 3.3 % Normal . [facility] Comment on above: Performed By: #### P AB, CMP, CBC #### [address] Erythrocyte distribution width (RBC) [Ratio] 13.0 % Normal 12.0-14.8 [facility] Comment on above: Performed By: #### P AB, CMP, CBC #### [address] Hematocrit (Bld) [Volume fraction] 28.5 % Low 38.8-50.0 [facility] Comment on above: Performed By: #### P AB, CMP, CBC #### [address] Hemoglobin (Bld) [Mass/Vol] 9.8 g/dL Low 13.0-17.0 [facility] Comment on above: Performed By: #### P AB, CMP, CBC #### [address] Lymphocytes (Bld) [#/Vol] 1.8 10*3/uL Normal 1.00-4.8 [facility] Comment on above: Performed By: #### P AB, CMP, CBC #### [address] Lymphocytes/100 WBC (Bld) 24.9 % Normal . [facility] Comment on above: Performed By: #### P AB, CMP, CBC #### [address] MCH (RBC) [Entitic mass] 35.6 pg High 27.5-35.2 [facility] Comment on above: Performed By: #### P AB, CMP, CBC #### [address] MCV (RBC) [Entitic vol] 104.1 fL High 83.5-101 [facility] Comment on above: Performed By: #### P AB, CMP, CBC #### [address] Mean Corpuscular HGB Conc 34.2 g/dL Normal 32.5-35.6 [facility] Comment on above: Performed By: #### P AB, CMP, CBC #### [address] Monocytes (Bld) [#/Vol] 0.9 10*3/uL High 0.0-0.8 [facility] Comment on above: Performed By: #### P AB, CMP, CBC #### [place] [address] [place] Monocytes/100 WBC (Bld) 13.0 % Normal . [facility] Comment on above: Performed By: #### P AB, CMP, CBC #### [address] Neutrophils (Bld) [#/Vol] 4.1 10*3/uL Normal 1.8-7.7 [facility] Comment on above: Performed By: #### P AB, CMP, CBC #### [address] Neutrophils/100 WBC (Bld) 58.5 % Normal . [facility] Comment on above: Performed By: #### P AB, CMP, CBC #### [address] NRBC% 0.1 /100{WBC} Normal 0-0.5 [facility] Comment on above: Performed By: #### P AB, CMP, CBC #### [address] Platelet mean volume (Bld) [Entitic vol] 8.5 fL Normal 6.6-10.1 [facility] Comment on above: Performed By: #### P AB, CMP, CBC #### [address] Platelets (Bld) [#/Vol] 189 10*3/uL Normal 150-450 [facility] Comment on above: Performed By: #### P AB, CMP, CBC #### [address] RBC (Bld) [#/Vol] 2.74 10*6/uL Low 3.90-5.60 [facility] Comment on above: Performed By: #### P AB, CMP, CBC #### [address] WBC (Bld) [#/Vol] 7.0 10*3/uL Normal 4.1-10.5 [facility] Comment on above: Performed By: #### P AB, CMP, CBC #### [address] Comprehensive Metabolic Pane lora 03-17-2024 Albumin [Mass/Vol] 3.3 g/dL Low 3.5-5.7 [facility] Comment on above: Performed By: #### P AB, CMP, CBC #### [address] Anion gap [Moles/Vol] 10.4 mmol/L Normal 6.0-15.0 [facility] e [facility] Comment on above: Performed By: #### P AB, CMP, CBC #### [facility] [address] [place] [address] [place] Calcium [Mass/Vol] 8.8 mg/dL Normal 8.6-10.3 [facility] Comment on above: Performed By: #### P AB, CMP, CBC #### [facility] [address] [place] [address] [place] Chloride [Moles/Vol] 100 mmol/L Normal 98-107 [facility] Comment on above: Performed By: #### P AB, CMP, CBC #### [place] [address] [place] CO2 [Moles/Vol] 29.9 mmol/L Normal 21.0-31.0 [facility] Comment on above: Performed By: #### P AB, CMP, CBC #### [place] [address] [place] Creatinine [Mass/Vol] 1.20 mg/dL Normal 0.70-1.30 [facility] Comment on above: Performed By: #### P AB, CMP, CBC #### [place] [address] [place] Creatinine Clr Calc Pharmacy 59.79 Normal [facility] Comment on above: Performed By: #### P AB, CMP, CBC #### [place] [address] [place] GFR/1.73 sq M.predicted MDRD (S/P/Bld) [Vol rate/Area] mL/min/{1.73_m2} Normal [facility] Comment on above: Performed By: #### P AB, CMP, CBC #### [place] [address] [place] Glucose [Mass/Vol] 122 mg/dL High 70-100 [facility] Comment on above: Result Comment: [place] Glucose Reference Range is dependent on time and content of last meal. Glucose of more than 200 mg/dL in a nonstressed, ambulatory subject supports the diagnosis of Diabetes Mellitus. ADA recommended reference range Performed By: #### P AB, CMP, CBC #### [place] [address] [place] Potassium [Moles/Vol] 4.3 mmol/L Normal 3.5-5.1 [facility] Comment on above: Performed By: #### P AB, CMP, CBC #### [address] Sodium [Moles/Vol] 136 mmol/L Normal 136-145 [facility] Comment on above: Performed By: #### P AB, CMP, CBC #### [facility] [address] Urea nitrogen [Mass/Vol] 18 mg/dL Normal 7-25 [facility] Comment on above: Performed By: #### P AB, CMP, CBC #### [address] Glucose Poct Glucometerson 0 03-17-2024 Glucose [Mass/Vol] 178 mg/dL Normal [facility] Comment on above: Result Comment: [facility] Glucose Reference Range is dependent on time and content of last meal. Glucose of more than 200 mg/dL in a nonstressed, ambulatory subject supports the diagnosis of Diabetes Mellitus. PERFORMED BY: [place] [address] PATHOLOGIST [employer] MA[employer] SHELBIE ALMONTE M.D. Performed By: #### G LULS #### Point of Care testing , Glucose [Mass/Vol] 126 mg/dL Normal [facility] Comment on above: Result Comment: [facility] Glucose Reference Range is dependent on time and content of last meal. Glucose of more than 200 mg/dL in a nonstressed, ambulatory subject supports the diagnosis of Diabetes Mellitus. PERFORMED BY: [place] [address] PATHOLOGIST [employer] MA[employer] SHELBIE ALMONTE M.D. Performed By: #### G LULS #### Point of Care testing , Glucose [Mass/Vol] 166 mg/dL Normal [facility] Comment on above: Result Comment: [place] Glucose Reference Range is dependent on time and content of last meal. Glucose of more than 200 mg/dL in a nonstressed, ambulatory subject supports the diagnosis of Diabetes Mellitus. PERFORMED BY: [place] [id number] PATHOLOGIST [employer] SHELBIE ALMONTE M.D. Performed By: #### G LULS #### Point of Care testing , Glucose [Mass/Vol] 147 mg/dL Normal [facility] Comment on above: Result Comment: [facility] Glucose Reference Range is dependent on time and content of last meal. Glucose of more than 200 mg/dL in a nonstressed, ambulatory subject supports the diagnosis of Diabetes Mellitus. PERFORMED BY: [place] [address] PATHOLOGIST [employer] MA[employer] SHELBIE ALMONTE M.D. Performed By: #### G SUPA #### Point of Care testing , Prealbumin [Mass/volume] in Serum or PlasmaOrdered By: Albert Swan on 03-17-2024 Prealbumin [Mass/Vol] 17.4 mg/dL Normal 17.0-34.0 [facility] Comment on above: Result Comment: PERF ORMED BY: [place] [address] PATHOLOGIST [employer] MA[employer] SHELBIE ALMONTE M.D. Performed By: #### P AB, CMP, CBC #### [address] Protein [Mass/volume] in Ser um or PlasmaOrdered By: Albert Swan on 03-17-2024 Protein [Mass/Vol] 6.3 g/dL Low 6.4-8.9 [facility] Comment on above: Performed By: #### P AB, CMP, CBC #### [facility] [address] [place] [address] Serum globulin measurement b y calculation (mass/volume)Ordered By: Albert Swan on 03-17-2024 Globulin (S) [Mass/Vol] 3.0 g/dL Normal [facility] Comment on above: Performed By: #### P AB, CMP, CBC #### [facility] [address] [place] [address] Serum or plasma albumin/glob ulin mass ratioOrdered By: Albert Swan on 03-17-2024 Albumin/Globulin [Mass ratio] 1.1 {ratio} Normal [facility] Comment on above: Performed By: #### P AB, CMP, CBC #### [address] XR chest 1V portableon 03-17 XR chest 1V portable [facility] [place] [address] [place] [address] XRay Report Signed Patient: Bishnu Love MR#: [id number] : 1945 Acct:[id number] Age/Sex: 78 / M ADM Date: 03/16/24 Loc: Room: [address] [place] [address] Type: ADM IN Attending Dr: Albert Swan [...] Jeff Nguyen M.D.03/17/2024 7:45 PM Dictation Location: [place] [address] Transcribed By: [facility] 03/17/241944 Dictated By: Jeff Nguyen DO 03/17/241943 Signed By: 03/17/241944 Normal [facility] Glucose Poct Glucometerson 0 03-16-2024 Glucose [Mass/Vol] 140 mg/dL Normal [facility] Comment on above: Result Comment: [place] Glucose Reference Range is dependent on time and content of last meal. Glucose of more than 200 mg/dL in a nonstressed, ambulatory subject supports the diagnosis of Diabetes Mellitus. PERFORMED BY: [place] [id number] PATHOLOGIST [employer] MA[employer] SHELBIE ALMONTE M.D. Performed By: #### G LULS #### Point of Care testing , Glucose [Mass/Vol] 158 mg/dL Normal [facility] Comment on above: Result Comment: [facility] Glucose Reference Range is dependent on time and content of last meal. Glucose of more than 200 mg/dL in a nonstressed, ambulatory subject supports the diagnosis of Diabetes Mellitus. PERFORMED BY: [address] [place] [address] PATHOLOGIST [employer] MA[employer] SHELBIE ALMONTE M.D. Performed By: #### G LULS #### Point of Care testing , A1C with Estimated Average Shelly rodriguez 02-25-2024 Glucose [Mass/Vol] 120 mg/dL Normal [facility] Comment on above: Result Comment: PERF ORMED BY: [address] [place] [place] [address] PATHOLOGIST [employer] MAKER SHELBIE ALMONTE M.D. Performed By: #### G LULS #### Point of Care testing , Activated partial thrombopla stin time (aPTT) in platelet poor plasma by coagulation aOrdered By: Austin Monte on 02-25-2024 aPTT Coag (PPP) [Time] 31.4 s 25.1-36.5 [facility] Comment on above: A hematocrit value g reater than 55% may lead to inaccurate results in coagulation testing. Patients having hematocrit values >55% require a special collection tube for coagulation studies. Please contact the laboratory at [phone] for redraw instructions. Automated basophil %Ordered By: Austin Monte on 02-25-2024 Basophils/100 WBC (Bld) 0.3 % Normal . [facility] Comment on above: Performed By: #### G LULS #### Point of Care testing , Automated basophil countOrde red By: Austin Monte on 02-25-2024 Basophils (Bld) [#/Vol] 0.0 10*3/uL Normal 0.0-0.2 [facility] Comment on above: Result Comment: PERF ORMED BY: [address] [place] [address] PATHOLOGIST [employer] MA[employer] SHELBIE ALMONTE M.D. Performed By: #### G LULS #### Point of Care testing , Automated blood monocyte cou ntOrdered By: Austin Digmandieo on 02-25-2024 Monocytes (Bld) [#/Vol] 0.7 10*3/uL Normal 0.0-0.8 [facility] Comment on above: Performed By: #### G LULS #### Point of Care testing , Automated eosinophil %Ordere d By: Austin Diglio on 02-25-2024 Eosinophils/100 WBC (Bld) 2.5 % Normal . [facility] Comment on above: Performed By: #### G LULS #### Point of Care testing , Automated eosinophil countOr dered By: Austin Digmandieo on 02-25-2024 Eosinophils (Bld) [#/Vol] 0.2 10*3/uL Normal 0.0-0.45 [facility] Comment on above: Performed By: #### G LULS #### Point of Care testing , Automated monocyte %Ordered By: Austin Diglio on 02-25-2024 Monocytes/100 WBC (Bld) 10.0 % Normal . [facility] Comment on above: Performed By: #### G LULS #### Point of Care testing , Automated neutrophil %Ordere d By: Austin Diglio on 02-25-2024 Neutrophils/100 WBC (Bld) 58.8 % Normal . [facility] Comment on above: Performed By: #### G LULS #### Point of Care testing , Basic Metabolic Panelon 02-02 GFR/1.73 sq M.predicted MDRD (S/P/Bld) [Vol rate/Area] 51.890 mL/min/{1.73_m2} Normal [facility] Comment on above: Performed By: #### G LULS #### Point of Care testing , Calcium [Mass/volume] in Ser um or PlasmaOrdered By: Austin Diglio on 02-25-2024 Calcium [Mass/Vol] 8.9 mg/dL Normal 8.6-10.3 [facility] Comment on above: Result Comment: PERF ORMED BY: [facility] [address] [place] [address] PATHOLOGIST [employer] MAKER SHELBIE ALMONTE M.D. Performed By: #### G LULS #### Point of Care testing , Carbon dioxide, total [Moles /volume] in Serum or PlasmaOrdered By: Austin Monte on 02-25-2024 CO2 [Moles/Vol] 29.2 mmol/L Normal 21.0-31.0 [facility] Comment on above: Performed By: #### G LULS #### Point of Care testing , Chloride [Moles/volume] in S bhavin or PlasmaOrdered By: Austin Monte on 02-25-2024 Chloride [Moles/Vol] 105 mmol/L Normal 98-107 [facility] Comment on above: Performed By: #### G LULS #### Point of Care testing , Coagulation Profileon 2023 aPTT Coag (Bld) [Time] 31.4 s Normal 25.1-36.5 [facility] Comment on above: Result Comment: A he matocrit value greater than 55% may lead to inaccurate results in coagulation testing. Patients having hematocrit values >55% require a special collection tube for coagulation studies. Please contact the laboratory at [phone] for redraw instructions. PERFORMED BY: [facility] [address] [place] [address] PATHOLOGIST [employer] MAK[employer] SHELBIE ALMONTE M.D. Performed By: #### G LULS #### Point of Care testing , Complete Blood Count Auto Di ffon 02-25-2024 Mean Corpuscular HGB Conc 33.7 g/dL Normal 32.5-35.6 [facility] Comment on above: Performed By: #### G LULS #### Point of Care testing , NRBC% 0.1 /100{WBC} Normal 0-0.5 [facility] Comment on above: Performed By: #### G LULS #### Point of Care testing , Creatinine [Mass/volume] in Serum or PlasmaOrdered By: Austin Monte on 02-25-2024 Creatinine [Mass/Vol] 1.39 mg/dL High 0.70-1.30 [facility] Comment on above: Performed By: #### G LULS #### Point of Care testing , ECG 12 lead ECGon 02-25-2024 ECG 12 lead ECG [facility] [place] [address] [place] [address] Electrocardiograph Report Signed Patient: Bishnu Love MR#: [id number] : 1945 Acct:[id number] Age/Sex: 78 / M ADM Date: 02/25/24 Loc: XD Room: Type: [facility] Attending Dr: Austin Monte PA-C Ordering [...] Referred By: Electronically Signed By:CAROLINA MAGAÑA MD [facility] Transcribed By: [facility] Signed By Yoshi Magaña MD 02/26/24 0841 Normal [facility] Erythrocyte distribution wid th [Ratio] by Automated countOrdered By: Austin Monte on 02-25-2024 Erythrocyte distribution width (RBC) [Ratio] 13.8 % Normal 12.0-14.8 [facility] Comment on above: Performed By: #### G LULS #### Point of Care testing , Erythrocytes [#/volume] in B lood by Automated countOrdered By: Austin Monte on 02-25-2024 RBC (Bld) [#/Vol] 3.39 10*6/uL Low 3.90-5.60 [facility] Comment on above: Performed By: #### G LULS #### Point of Care testing , Glucose [Mass/volume] in Ser um or PlasmaOrdered By: Austin Monte on 02-25-2024 Glucose [Mass/Vol] 119 mg/dL High 70-100 [facility] Comment on above: ADA recommended refe rence rangeRandom Glucose Reference Range is dependent on time and content of last meal. Glucose of more than 200 mg/dL in a nonstressed, ambulatory subject supports the diagnosis of Diabetes Mellitus. Result Comment: [place] om Glucose Reference Range is dependent on [...] from glycated hemoglobin (Bld) [Mass/Vol] 120 mg/dL [facility] Hematocrit [Volume Fraction] of Blood by Automated countOrdered By: Austin Monte on 02-25-2024 Hematocrit (Bld) [Volume fraction] 35.7 % Low 38.8-50.0 [facility] Comment on above: Performed By: #### G LULS #### Point of Care testing , Hemoglobin A1c percentageOrd ered By: Austin Monte on 02-25-2024 HbA1c (Bld) [Mass fraction] 5.8 % High 4.3-5.6 [facility] Comment on above: Increased risk for d [...] Hemoglobin (Bld) [Mass/Vol] 12.0 g/dL Low 13.0-17.0 [facility] Comment on above: Performed By: #### G LUHOMERO #### Point of Care testing , INR in Platelet poor plasma by Coagulation assayOrdered By: Austin Monte on 02-25-2024 INR Coag (PPP) [Relative time] 1.0 {INR} Normal [facility] Comment on above: INR Therapeutic Rang e [...] RBC Auto (Bld) [#/Vol] 6.9 10*3/uL 4.1-10.5 [facility] Leukocytes [#/volume] in Blo od by Automated countOrdered By: Austin Monte on 02-25-2024 WBC (Bld) [#/Vol] 6.9 10*3/uL Normal 4.1-10.5 [facility] Comment on above: Performed By: #### G LUHOMERO #### Point of Care testing , Lymphocytes [#/volume] in Bl ood by Automated countOrdered By: Austin Monte on 02-25-2024 Lymphocytes (Bld) [#/Vol] 2.0 10*3/uL Normal 1.00-4.8 [facility] Comment on above: Performed By: #### G LULS #### Point of Care testing , Lymphocytes/100 leukocytes i n Blood by Automated countOrdered By: Austin Monte on 02-25-2024 Lymphocytes/100 WBC (Bld) 28.4 % Normal . [facility] Comment on above: Performed By: #### G LULS #### Point of Care testing , MCH [Entitic mass] by Automa nadine countOrdered By: Austin Monte on 02-25-2024 MCH (RBC) [Entitic mass] 35.5 pg High 27.5-35.2 [facility] Comment on above: Performed By: #### G LULS #### Point of Care testing , MCHC Auto (RBC) [Mass/Vol]Or dered By: Austin Monte on 02-25-2024 MCHC (RBC) [Mass/Vol] 33.7 g/dL 32.5-35.6 [facility] MCV [Entitic volume] by Auto mated countOrdered By: Austin Monte on 02-25-2024 MCV (RBC) [Entitic vol] 105.4 fL High 83.5-101 [facility] Comment on above: Performed By: #### G LULS #### Point of Care testing , MRSA Cultureon 02-25-2024 MRSA Culture MRSA Culture Results No MRSA Isolated 2 Days PERFORMED BY: [facility] [address] [place] [address] PATHOLOGIST [employer] MAKER SHELBIE ALMONTE M.D. Normal [facility] Comment on above: Performed By: #### G LULS #### Point of Care testing , Neutrophils [#/volume] in Bl ood by Automated countOrdered By: Austin Monte on 02-25-2024 Neutrophils (Bld) [#/Vol] 4.1 10*3/uL Normal 1.8-7.7 [facility] Comment on above: Performed By: #### G LULS #### Point of Care testing , No Panel InformationOrdered By: Austin Monte on 02-25-2024 Estimated GFR (CKD-EPI) 51.890 mL/Min [facility] Creatinine Clearance (Chem N/A [facility] Nucleated erythrocytes [Pres ence] in Blood by Automated countOrdered By: Austin Monte on 02-25-2024 Nucleated RBC Auto Ql (Bld) 0.1 /100{WBC} 0-0.5 [facility] Platelet mean volume [Entiti c volume] in Blood by Automated countOrdered By: Austin Monte on 02-25-2024 Platelet mean volume (Bld) [Entitic vol] 9.0 fL Normal 6.6-10.1 [facility] Comment on above: Performed By: #### G LULS #### Point of Care testing , Platelets [#/volume] in Bloo d by Automated countOrdered By: Austin Monte on 02-25-2024 Platelets (Bld) [#/Vol] 150 10*3/uL Normal 150-450 [facility] Comment on above: Performed By: #### G LULS #### Point of Care testing , Potassium [Moles/volume] in Serum or PlasmaOrdered By: Austin Monte on 02-25-2024 Potassium [Moles/Vol] 4.6 mmol/L Normal 3.5-5.1 [facility] Comment on above: Performed By: #### G LULS #### Point of Care testing , Prothrombin time (PT)Ordered By: Austin Monte on 02-25-2024 PT Coag (PPP) [Time] 11.4 s Normal 9.0-12.9 [facility] Comment on above: A hematocrit value g reater than 55% may lead to inaccurate results in coagulation testing. Patients having hematocrit values >55% require a special collection tube for coagulation studies. Please contact the laboratory at [phone] for redraw instructions. Result Comment: A he matocrit value greater than 55% may lead to inaccurate results in coagulation testing. Patients having hematocrit values >55% require a special collection tube for coagulation studies. Please contact the laboratory at [phone] for redraw instructions. Performed By: #### G LULS #### Point of Care testing , Serum or plasma anion gap de terminationOrdered By: Austin Monte on 02-25-2024 Anion gap [Moles/Vol] 11.4 mmol/L Normal 6.0-15.0 [facility] Comment on above: Performed By: #### G LULS #### Point of Care testing , Sodium [Moles/volume] in Ser um or PlasmaOrdered By: Austin Monte on 02-25-2024 Sodium [Moles/Vol] 141 mmol/L Normal 136-145 [facility] Comment on above: Performed By: #### G LULS #### Point of Care testing , Urea nitrogen [Mass/volume] in Serum or PlasmaOrdered By: Austin Monte on 02-25-2024 Urea nitrogen [Mass/Vol] 21 mg/dL Normal 7-25 [facility] Comment on above: Performed By: #### G LULS #### Point of Care testing , Wound methicillin resistant Staphylococcus aureus (MRSA) cultureOrdered By: Austin Monte on 02-25-2024 MRSA isol Org specific cx Ql (Unsp spec) [facility] XR chest 2V*on 02-25-2024 XR chest 2V* [facility] [place] [address] [place] [address] XRay Report Signed Patient: Bishnu Love MR#: [id number] : 1945 Acct:[id number] Age/Sex: 78 / M ADM Date: 02/25/24 Loc: XD Room: Type: [facility] Attending Dr: Austin Monte PA-C Copies [...] Jeff Nguyen M.D.02/25/2024 12:18 PM Dictation Location: [place] [address] Transcribed By: [facility] 02/25/24 1218 Dictated By: Jeff Nguyen DO 02/25/24 1211 Signed By: 02/25/24 1218 Normal [facility] MR lumbar spine wo conon MR lumbar spine wo [place] [address] MRI Report Signed Patient: Bishnu Love MR#: [id number] : 1945 Acct:[id number] Age/Sex: 78 / M ADM Date: 12/28/23 Loc: Room: Type: [facility] Attending Dr: Jed Salgado MD Copies [...] Toby Dodge M.D.12/28/2023 3:58 PM Dictation Location: [place] [address] Transcribed By: [facility] 12/28/23 1558 Dictated By: Toby Dodge II, MD 12/28/23 1552 Signed By: 12/28/23 1558 Normal [facility] CT lumbar spine wo [facility] CT lumbar spine wo [facility] [place] [address] CT Scan Report Signed Patient: Bishnu Love MR#: [id number] : 1945 Acct:[id number] Age/Sex: 78 / M ADM Date: 11/14/23 Loc: CT Room: Type: [facility] Attending Dr: Kaitlynn Liz MD Copies [...] M.D.11/14/2023 4:16 PM Dictation Location: [place] [address] Transcribed By: [facility] 11/14/23 1616 Dictated By: Toby Dodge II, MD 11/14/23 1606 Signed By: 11/14/23 1616 Normal [facility] Covid-19 PCR (CVDTBH)on 08-03 SARS-CoV-2 (COVID-19) RNA BENITO+probe Ql (Unsp spec) Not detected Normal NOT DETECTED [facility] Comment on above: Result Comment: This test is not yet approved or cleared by the [place] FDA. When there are no FDA-approved or cleared tests available, and other criteria are met, FDA can make tests available under an emergency access mechanism called an Emergency Use Authorization (EUA). The EUA for this test is supported by the [place] of Health and Human Service's (HHS's) declaration [...] SARS-CoV-2. Performed By: #### C VDTB #### [facility] [address] [place] [address] Dr. Leeann Vail INFLUENZA A AND B [facility] 08-16 [facility] SEE BELOW Normal [facility] Comment on above: Result Comment: Nega tive for Flu A protein angiten. Infection due to Flu A cannot be ruled out. Flu A angiten in the sample may be below the detection limit of the test. Performed By: #### I NFLUAB #### [facility] [address] [place] [address] Dr. Leeann Vail [facility] SEE BELOW Normal [facility] Comment on above: Result Comment: Nega tive for Flu B protein antigen. Infection due to Flu B cannot be ruled out. Flu B antigen in the sample may be below the detection limit of the test. Performed By: #### I NFLUAB #### [facility] [address] [place] [address] Dr. Leeann Vail INFLUENZA A AG Negative Normal NEGATIVE SEE COMMENT [facility] Comment on above: Performed By: #### I NFLUAB #### [facility] [address] [place] [address] Dr. Leeann Vail INFLUENZA B AG Negative Normal NEGATIVE SEE COMMENT [facility] Comment on above: Performed By: #### I NFLUAB #### [facility] [address] [place] [address] Dr. Leeann Vail INTERNAL CONTROLS Within Normal Limits Normal Wi thin Normal Limits [facility] Comment on above: Performed By: #### I NFLUAB #### [facility] [address] [place] [address] [address] Leeann Vail Lab Reportson 04-02-2020 Lab Reports [id number]:127 [facility] Consent for Procedure/Surger yon 03-24-2020 Consent for Procedure/Surgery [id number]:127 [facility] Ambulatory Clinical Summaryo n 03-16-2020 Ambulatory Clinical Summary {[id number]}CD: [id number] [facility] Physician Referralon 020 Physician Referral [id number]:127 [facility] Vital Signs Date Time Vital Sign Value Performing Clinician Faci lity 03-31-2024 10:08-0400 Body temperature 98 [degF] MD Kaitlynn Liz Work Phone: [facility] 03-31-2024 10:08-0400 Diastolic blood pressure 84 mm[Hg] MD Kaitlynn Liz Work Phone: [facility] 03-31-2024 10:08-0400 Heart rate 78 /min MD Kaitlynn Liz Work Phone: [facility] 03-31-2024 10:08-0400 Respiratory rate 20 /min MD Kaitlynn Liz Work Phone: [facility] 03-31-2024 10:08-0400 SaO2% (BldA) [Mass fraction] 96 % MD Kaitlynn Liz Work Phone: [facility] 03-31-2024 10:08-0400 Systolic blood pressure 134 mm[Hg] MD Kaitlynn Liz Work Phone: [facility] 03-30-2024 05:04-0400 Body weight 104.1 kg MD Kaitlynn Liz Work Phone: [facility] 03-24-2024 12:02-0400 Body height 177.8 cm MD Kaitlynn Liz Work Phone: [facility] Encounters Encounter Date Encounter Type Care Provider Facility Start: 03-24-2024 Non-patient / Non-visit MD Apolonia Liz Work Phone: [facility] Work Phone: Start: 03-17-2024 Non-patient / Non-visit MD Apolonia Liz Work Phone: [facility] Work Phone: Start: 03-16-2024 End: 03-31-2024 Evaluation and management of inpatient MD Kaitlynn Liz Work Phone: [facility] Work Phone: Start: 02-25-2024 End: 02-25-2024 Patient encounter procedure MD Kaitlynn Liz Work Phone: [facility] [place] Work Phone: Start: 02-25-2024 End: 02-25-2024 ambulatory MD Kaitlynn Liz Work Phone: [facility] Work Phone: Start: 12-28-2023 End: 12-28-2023 Patient encounter procedure MD Kaitlynn Liz Work Phone: [facility] [place] Work Phone: Start: 12-28-2023 End: 12-28-2023 ambulatory MD Kaitlynn Liz Work Phone: [facility] Work Phone: Start: 11-14-2023 End: 11-14-2023 Patient encounter procedure MD Kaitlynn Liz Work Phone: [facility]-CT Scan Main [place] Work Phone: Start: 11-14-2023 End: 11-14-2023 ambulatory MD Kaitlynn Liz Work Phone: [facility] Work Phone: Start: 08-16-2022 End: 08-16-2022 [...] Date Care Activity Detail Author Start: 03-31-2024 [facility] Start: 03-16-2024 Hospital admission [facility] Start: 03-16-2024 Referral to clinical community service representative [facility] Start: 02-25-2024 MRSA Culture MRSA Culture [facility] Methicillin resistan t Staphylococcus aureus [Presence] in Unspecified specimen by Organism specific culture [facility] Patient Education Spinal Fusion (DC) Know your Meds [facility] Work Phone: Patient referral [facility] Work Phone: [facility] Payers Date Payer Category Payer Self-pay 1959 Medicare [id number] 1959 Unknown [id number] 1945 Unknown [id number] Medicare Medicare Outpatient [id number] Unknown [employer] C o [id number] Unknown [id number] Unknown [id number] Unknown [id number] Unknown [id number] Social History Date Type Detail Facility Tobacco smoking stat [facility] Unknown if ever smoked [facility] Work Phone: Start: 1945 Sex Assigned At Male [facility] Start: 03-17-2024 Tobacco smoking stat [facility] Ex-smoker (finding) [facility] End: 03-19-1987 History of tobacco use [facility] Work Phone: Goals Date Patient Goal Desired Activity /State Functional Status Date Assessment Result Facility 03-31-2024 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 [facility] Work Phone: Mental Status Date Assessment Result Facility 03-31-2024 Cognitive function Cognitive Sta tus Patient at Baseline [facility] Work Phone: Clinical Notes 03-18-2024 to 03-29-2024 Note Date & Type Note Facility 03-29-2024 Progress note Note Date/Time March 29, 2024 9:32am [facility] [address] [place] [address] Physiatry(Rehab) Progress Note Signed Patient: Bishnu Love MR#: [id number] 1178 : 1945 Acct:[id number] Age/Sex: 78 / M Adm Date: 4 Loc: Room: [id number] Type: ADM IN Attending Dr: Albert Swan [...] mg 03/16/24 13:09 Bisacodyl 10 Mg Supp.Rect IA 03/16/25 13:08 DAILY PRN Constipation Cyclobenzaprine HCl [...] 13:09 Docusate Enema 283 Mg/5 Ml Enema IA 03/16/25 13:08 DAILY PRN Constipation Enoxaparin Sodium [...] equipment to enhance the patient's a functional shinto Encourage deep breathing exercises and incentive spirometry [...] equipment to enhance the patient's a functional shinto Ensure adequate nutrition and hydration Sleep no issues Pain: Continue current regimen Discharge planning: Home 03/31. I spent 25 minutes for services, including levh-pv-ocxy encounter with the patient, discussion of the case, plan of care, and exam; and xooymqc-iu-ackd activities, such as reviewing pertinent educational consultant documentation, recent therapynotes, laboratory and radiology studies, and discussion of case with care team including physician, nursing, case specialist, and therapists. More than 50 % of time was spent on patient/family counseling or coordination ofcare. Documented By: Camron Carpenter MD 0930 Signed By: <Electronically signed by Camron Carpenter MD> 03/29/24 0932 [facility] Work Phone: 1(380) 660-381307-26-2024 Progress note Author Albert Swan [facility] March 28, 2024 12:15pm Note Date/Time March 28, 2024 11:5 4am [facility] [address] [place] [address] Physiatry(Rehab) Progress Note Signed Patient: Bishnu Love MR#: [id number] 1178 : 1945 Acct:[id number] Age/Sex: 78 / M Adm Date: 4 Loc: Room: [address] [place] [address] Type: ADM IN Attending Dr: Albert Swan [...] mg 03/16/24 13:09 Bisacodyl 10 Mg Supp.Rect IA 03/16/25 13:08 DAILY PRN Constipation Cyclobenzaprine HCl [...] 13:09 Docusate Enema 283 Mg/5 Ml Enema IA 03/16/25 13:08 DAILY PRN Constipation Enoxaparin Sodium [...] equipment to enhance the patient's a functional shinto Encourage deep breathing exercises and incentive spirometry [...] equipment to enhance the patient's a functional shinto Ensure adequate nutrition and hydration Sleep no issues Pain: Continue current regimen Discharge planning: Home 03/31. I spent 25 minutes for services, including orvu-zs-gmbb encounter with the patient, discussion of the case, plan of care, and exam; and jfdfsfr-kt-nmra activities, such as reviewing pertinent educational consultant documentation, recent therapynotes, laboratory and radiology studies, and discussion of case with care team including physician, nursing, case specialist, and therapists. More than 50 % of time was spent on patient/family counseling or coordination ofcare. Documented By: Albert Swan MD 03/28/24 8998 Signed By: <Electronically signed by Albert Swan MD> 03/28/24 1215 [facility] Work Phone: 1(654) 149-880407-24-2024 Progress note Author Albert Swan [facility] March 26, 2024 12:58pm Note Date/Time March 26, 2024 11:5 3am [facility] [address] [place] [address] Physiatry(Rehab) Progress Note Signed Patient: Bishnu Love MR#: [id number] 1178 : 1945 Acct:[id number] Age/Sex: 78 / M Adm Date: 4 Loc: Room: [address] [place] [address] Type: ADM IN Attending Dr: Albert Swan [...] mg 03/16/24 13:09 Bisacodyl 10 Mg Supp.Rect IA 03/16/25 13:08 DAILY PRN Constipation Cyclobenzaprine HCl [...] 13:09 Docusate Enema 283 Mg/5 Ml Enema IA 03/16/25 13:08 DAILY PRN Constipation Enoxaparin Sodium [...] equipment to enhance the patient's a functional shinto Encourage deep breathing exercises and incentive spirometry [...] S1 decompression and L2-L5 fusion by Dr. Abhishek. * Weaned to room air * Hematuria [...] equipment to enhance the patient's a functional shinto Ensure adequate nutrition and hydration Sleep no issues Pain: Continue current regimen Discharge planning: Home 03/31. I spent 28 minutes for services, including bgtb-jx-ecny encounter with the patient, discussion of the case, plan of care, and exam; and mudnukm-zd-rcgx activities, such as reviewing pertinent educational consultant documentation, recent therapynotes, laboratory and radiology studies, and discussion of case with care team including physician, nursing, case specialist, and therapists. More than 50 % of time was spent on patient/family counseling or coordination ofcare. Documented By: Albert Swan MD 03/26/24 1144 Signed By: <Electronically signed by Albert Swan MD> 03/26/24 6454 [facility] Work Phone: 1(601) 467-463207-24-2024 Progress note Author Albert Swan [facility] March 26, 2024 10:40am Note Date/Time March 26, 2024 10:3 5am [facility] [address] [place] [address] Physiatry(Rehab) Progress Note Signed Patient: Bishnu Love MR#: [id number] 1178 : 1945 Acct:[id number] Age/Sex: 78 / M Adm Date: 4 Loc: Room: [address] [place] [address] Type: ADM IN Attending Dr: Albert Swan [...] Labs: Laboratory Results - last 24 hr 0703/25/24 03/25/24 11:08 16:16 19:58 POC Glucose 258 [...] mg 03/16/24 13:09 Bisacodyl 10 Mg Supp.Rect IA 03/16/25 13:08 DAILY PRN Constipation Cyclobenzaprine HCl [...] 13:09 Docusate Enema 283 Mg/5 Ml Enema IA 03/16/25 13:08 DAILY PRN Constipation Enoxaparin Sodium [...] equipment to enhance the patient's a functional shinto Encourage deep breathing exercises and incentive spirometry [...] equipment to enhance the patient's a functional shinto Ensure adequate nutrition and hydration Sleep no issues Pain: Continue current regimen Discharge planning: Home 03/31. I spent 25 minutes for services, including xmbv-ce-brtf encounter with the patient, discussion of the case, plan of care, and exam; and zrdtqle-iu-pqlw activities, such as reviewing pertinent educational consultant documentation, recent therapynotes, laboratory and radiology studies, and discussion of case with care team including physician, nursing, case specialist, and therapists. More than 50 % of time was spent on patient/family counseling or coordination ofcare. Documented By: Albert Swan MD 03/26/24 1033 Signed By: <Electronically signed by Albert Swan MD> 03/26/24 1040 [facility] Work Phone: 1(165) 610-725507-24-2024 Progress note Author Clara De La Torre [facility] March 26, 2024 7:01am Note Date/Time March 25, 2024 4:38 pm [facility] [address] [place] [address] Hospitalist Progress Note Signed Patient: Bishnu Love MR#: [id number] 1178 : 1945 Acct:[id number] Age/Sex: 78 / M Adm Date: 4 Loc: Room: [address] [place] [address] Type: ADM IN Attending Dr: Albert Swan [...] 145/68 H 98 Room Air 03/25/24 16:00 07/23/24 16:00 03/25/24 16:00 03/25/24 16:00 03/25/24 16:00 [...] mg 03/16/24 13:09 Bisacodyl 10 Mg Supp.Rect IA 03/16/25 13:08 DAILY PRN Constipation Cyclobenzaprine HCl [...] 13:09 Docusate Enema 283 Mg/5 Ml Enema IA 03/16/25 13:08 DAILY PRN Constipation Enoxaparin Sodium [...] Clara De La Torre MD> 03/26/24 0701 [facility] Work Phone: 1(722) 625-731707-22-2024 Progress note Author Albert Swan [facility] March 24, 2024 8:01pm Note Date/Time March 24, 2024 6:58 pm [facility] [address] [place] [address] Physiatry(Rehab) Progress Note Signed Patient: Bishnu Love MR#: [id number] 1178 : 1945 Acct:[id number] Age/Sex: 78 / M Adm Date: 4 Loc: Room: [address] [place] [address] Type: ADM IN Attending Dr: Albert Swan [...] mg 03/16/24 13:09 Bisacodyl 10 Mg Supp.Rect IA 03/16/25 13:08 DAILY PRN Constipation Cyclobenzaprine HCl [...] 13:09 Docusate Enema 283 Mg/5 Ml Enema IA 03/16/25 13:08 DAILY PRN Constipation Enoxaparin Sodium [...] equipment to enhance the patient's a functional shinto Encourage deep breathing exercises and incentive spirometry [...] equipment to enhance the patient's a functional shinto Ensure adequate nutrition and hydration Sleep no issues Pain: Continue current regimen Discharge planning: Home end of week v early next. I spent 26 minutes for services, including iiks-sb-kwjt encounter with the patient, discussion of the case, plan of care, and exam; and lvrqflb-fw-iluj activities, such as reviewing pertinent educational consultant documentation, recent therapynotes, laboratory and radiology studies, and discussion of case with care team including physician, nursing, case specialist, and therapists. More than 50 % of time was spent on patient/family counseling or coordination ofcare. Documented By: Albert Swan MD 03/24/24 4297 Signed By: <Electronically signed by Albert Swan MD> 03/24/242000 [facility] Work Phone: 1(169) 537-902707-22-2024 Progress note Author Albert Swan [facility] March 24, 2024 1:12pm Note Date/Time March 22, 2024 11:1 8am [facility] [address] [place] [address] Physiatry(Rehab) Progress Note Signed Patient: Bishnu Love MR#: [id number] 1178 : 1945 Acct:[id number] Age/Sex: 78 / M Adm Date: 4 Loc: 5T Room: 7W1332-2 Type: ADM IN Attending Dr: Albert Swan [...] mg 03/16/24 13:09 Bisacodyl 10 Mg Supp.Rect IA 03/16/25 13:08 DAILY PRN Constipation Cyclobenzaprine HCl [...] 13:09 Docusate Enema 283 Mg/5 Ml Enema IA 03/16/25 13:08 DAILY PRN Constipation Enoxaparin Sodium [...] equipment to enhance the patient's a functional shinto Encourage deep breathing exercises and incentive spirometry [...] equipment to enhance the patient's a functional shinto Ensure adequate nutrition and hydration Sleep no issues Pain: Continue current regimen Discharge planning: Home alone in 7 to 10 days. I spent 21 minutes for services, including qiwq-wi-zhug encounter with the patient, discussion of the case, plan of care, and exam; and owrbdja-jr-zsdx activities, such as reviewing pertinent educational consultant documentation, recent therapynotes, laboratory and radiology studies, and discussion of case with care team including physician, nursing, case specialist, and therapists. More than 50 % of time was spent on patient/family counseling or coordination ofcare. <Statement entered by Albert Swan MD - 03/24/24 13:12> This documentation has been reviewed and approved. I reviewed the history and the relevant portions of the chart, including currentorders, allied health and educational consultant notes, labs/imaging and plan of care as above. Documented By: Glendy Calabrese APRN 03/22/24 1 118 Signed By: <Electronically signed by RALPH Calabrese> 03/22/24 1122 <Electronically signed by Albert Swan MD> 03/24/24 1312 [facility] Work Phone: 1(535) 598-515207-22-2024 Progress note Author Albert Swan [facility] March 24, 2024 1:12pm Note Date/Time March 24, 2024 12:0 7pm [facility] [address] [place] [address] Physiatry(Rehab) Progress Note Signed Patient: Bishnu Love MR#: [id number] 1178 : 1945 Acct:[id number] Age/Sex: 78 / M Adm Date: 4 Loc: 5T Room: 8E4750-6 Type: ADM IN Attending Dr: Albert Swan [...] 18 117/60 94 L Room Air 03/24/24 04:09 03/24/24 04:09 03/24/24 04:03/24/24 04:03/24/24 04:03/24/24 10:12 Narrative: General: Awake, [...] Allergies and Active Meds: Allergies cephalexin [From [employer]] Adverse Reaction (Mild, Verified 03/18/24 18:59) Itching [...] mg 03/16/24 13:09 Bisacodyl 10 Mg Supp.Rect IA 03/16/25 13:08 DAILY PRN Constipation Cyclobenzaprine HCl [...] 13:09 Docusate Enema 283 Mg/5 Ml Enema IA 03/16/25 13:08 DAILY PRN Constipation Enoxaparin Sodium [...] equipment to enhance the patient's a functional shinto Encourage deep breathing exercises and incentive spirometry [...] equipment to enhance the patient's a functional shinto Ensure adequate nutrition and hydration Sleep no issues Pain: Continue current regimen Discharge planning: Home alone in 7 to 10 days. I spent 24 minutes for services, including kzjd-uz-wkks encounter with the patient, discussion of the case, plan of care, and exam; and wglannt-pp-xoid activities, such as reviewing pertinent educational consultant documentation, recent therapynotes, laboratory and radiology studies, and discussion of case with care team including physician, nursing, case specialist, and therapists. More than 50 % of time was spent on patient/family counseling or coordination ofcare. <Statement entered by Albert Swan MD - 03/24/24 13:12> This documentation has been reviewed and approved. Patient was personally seen by me, Dr. Swan, on the day of encounter, reviewed the history and the relevant portions of the chart, including current orders, allied health and educational consultant notes, labs/imaging and performed sherman elements of exam and I formulated the plan of care and facilitated the medical decision making. I completed a substantive portion of this encounter, the medical decision makingportion of this note in its entirety, including Allied health note review, nursing note review, educational consultant note review, discussion with nursing and case management, and more than 50% of my time was spent on counseling and coordination of care, time spent 30 minutes Documented By: Glendy Calabrese APRN 03/24/24 1 206 Signed By: <Electronically signed by RALPH Calabrese> 03/24/24 1211 <Electronically signed by Albert Swan MD> 03/24/24 1312 [facility] Work Phone: 1(507) 284-233707-19-2024 Progress note Author Camron Carpenter [facility] March 21, 2024 1:37pm Note Date/Time March 21, 2024 1:37 pm [facility] [address] [place] [address] Physiatry(Rehab) Progress Note Signed Patient: Bishnu Love MR#: [id number] 1178 : 1945 Acct:[id number] Age/Sex: 78 / M Adm Date: 4 Loc: Room: [address] [place] [address] Type: ADM IN Attending Dr: Albert Swan [...] mg 03/16/24 13:09 Bisacodyl 10 Mg Supp.Rect IA 03/16/25 13:08 DAILY PRN Constipation Cyclobenzaprine HCl [...] 13:09 Docusate Enema 283 Mg/5 Ml Enema IA 03/16/25 13:08 DAILY PRN Constipation Enoxaparin Sodium [...] equipment to enhance the patient's a functional shinto Encourage deep breathing exercises and incentive spirometry [...] equipment to enhance the patient's a functional shinto Ensure adequate nutrition and hydration Sleep no issues Pain: Continue current regimen Discharge planning: Home alone in 7 to 10 days. I spent 25 minutes for services, including jwge-xl-bzhs encounter with the patient, discussion of the case, plan of care, and exam; and yrlndhp-hz-xwek activities, such as reviewing pertinent educational consultant documentation, recent therapynotes, laboratory and radiology studies, and discussion of case with care team including physician, nursing, case specialist, and therapists. More than 50 % of time was spent on patient/family counseling or coordination ofcare. Patient was personally seen by me, Dr. Carpenter, on the day of encounter, reviewed the history and the relevant portions of the chart, including current orders, allied health and educational consultant notes, labs/imaging and performed sherman elements of exam and I formulated the plan of care and facilitated the medical decision making. Documented By: Camron Carpenter MD 5930 Signed By: <Electronically signed by Camron Carpenter MD> 03/21/24 1803 [facility] Work Phone: 1(716) 307-243007-18-2024 Progress note Author Albert Swan [facility] March 20, 2024 7:40am Note Date/Time March 19, 2024 12:2 6pm [facility] [address] [place] [address] Physiatry(Rehab) Progress Note Signed Patient: Bishnu Love MR#: [id number] 1178 : 1945 Acct:[id number] Age/Sex: 78 / M Adm Date: 4 Loc: Room: 8C2630-7 Type: ADM IN Attending Dr: Albert Swan [...] unless noted below or in HPI Exam <Glendy Calabrese APRN - Last Filed: 03/19/24 [...] and affect appropriate. Normal speech. Objective <Glendy Calabrese APRN - Last Filed: 03/19/24 12:32> Labs 03/20/24 05:15 03/20/24 05:15 Labs: Laboratory Results - last 24 hr 03/18/24 03/18/24 03/19/24 16:26 20:54 05:32 Corrected WBC 7.7 Uncorrected WBC Count 7.7 RBC 2.73 L Hgb 9.5 L Hct 28.2 L MCV 103.1 H MCH 34.8 MCHC 33.8 RDW 13.2 Plt Count 201 MPV 8.6 Neut % (Auto) 67.3 Lymph % (Auto) 17.6 [place] % (Auto) 12.8 Eos % (Auto) 1.9 Baso % (Auto) 0.4 Nucleat RBC Rel Count 0.0 Neut # (Auto) 5.1 Lymph # (Auto) 1.3 Deuel # (Auto) 1.0 H Eos # (Auto) [...] MPV Neut % (Auto) Lymph % (Auto) [place] % (Auto) Eos % (Auto) Baso % (Auto) Nucleat RBC Rel Count Neut # (Auto) Lymph # (Auto) [place] # (Auto) Eos # (Auto) Baso # [...] mg 03/16/24 13:09 Bisacodyl 10 Mg Supp.Rect IA 03/16/25 13:08 DAILY PRN Constipation Cyclobenzaprine HCl [...] 13:09 Docusate Enema 283 Mg/5 Ml Enema IA 03/16/25 13:08 DAILY PRN Constipation Enoxaparin Sodium [...] equipment to enhance the patient's a functional shinto Encourage deep breathing exercises and incentive spirometry [...] equipment to enhance the patient's a functional shinto Ensure adequate nutrition and hydration Sleep no issues Pain: Continue current regimen Discharge planning: Home alone in 7 to 10 days. I spent 17 minutes for services, including eqbr-yt-vunm encounter with the patient, discussion of the case, plan of care, and exam; and jcxkkzy-lj-ojiu activities, such as reviewing pertinent educational consultant documentation, recent therapynotes, laboratory and radiology studies, and discussion of case with care team including physician, nursing, case specialist, and therapists. More than 50 % of [...] equipment to enhance the patient's a functional shinto Ensure adequate nutrition and hydration Sleep no issues Pain: Continue current regimen Discharge planning: Home alone in 7 to 10 days. I spent 23 minutes for services, including itkv-dy-opkr encounter with the patient, discussion of the case, plan of care, and exam; and padniac-qo-qvtd activities, such as reviewing pertinent educational consultant documentation, recent therapynotes, laboratory and radiology studies, and discussion of case with care team including physician, nursing, case specialist, and therapists. More than 50 % of time was spent on patient/family counseling or coordination ofcare. Patient was personally seen by me, Dr. Swan, on the day of encounter, reviewed the history and the relevant portions of the chart, including current orders, allied health and educational consultant notes, labs/imaging and performed sherman elements of exam and I formulated the plan of care and facilitated the medical decision making. Documented By: Glendy Calabrese APRN 03/19/24 1 226 Signed By: <Electronically signed by RALPH Calabrese> 03/19/24 1232 <Electronically signed by Albert Swan MD> 03/20/24 7284 [facility] Work Phone: 1(367) 636-250307-17-2024 Progress note Author Sharon Ruggiero [facility] March 19, 2024 4:37pm Note Date/Time March 19, 2024 4:32 pm [facility] [address] [place] [address] Hospitalist Progress Note Signed Patient: Bishnu Love MR#: [id number] 1178 : 1945 Acct:[id number] Age/Sex: 78 / M Adm Date: 4 Loc: 5T Room: [address] [place] [address] Type: ADM IN Attending Dr: Albert Swan MD Copies to: ~ Date of Service: 03/18/2024 Subjective Subjective Narrative: Patient seen and examined on follow up. documentation demonstrated no hypoxia or need for oxygen. COVID positive status with cough and exertional dyspnea upon arrival to [facility]. Ongoing postoperative pain with LLE weakness. Continues [...] mg 03/16/24 13:09 Bisacodyl 10 Mg Supp.Rect IA 03/16/25 13:08 DAILY PRN Constipation Cephalexin HCl [...] 13:09 Docusate Enema 283 Mg/5 Ml Enema IA 03/16/25 13:08 DAILY PRN Constipation Enoxaparin Sodium 40 mg 03/19/24 10:00 Enoxaparin 40 Mg/0.4 Ml Syringe SUBCUT 03/19/25 09:59 DAILY@1000 [facility] Ferrous Sulfate 324 mg 03/20/24 09:00 Ferrous [...] <Electronically signed by RALPH Ruggiero> 03/19/24 1637 [facility] Work Phone: 1(655) 566-515607-17-2024 Progress note Author Albert Swan [facility] March 19, 2024 12:03pm Note Date/Time March 18, 2024 4:50 pm [facility] [address] [place] [address] Physiatry(Rehab) Progress Note Signed Patient: Bishnu Love MR#: [id number] 1178 : 1945 Acct:[id number] Age/Sex: 78 / M Adm Date: 4 Loc: Room: [address] [place] [address] Type: ADM IN Attending Dr: Albert Swan [...] Cloudy A Urine pH 7.5 Ur Specific [place] 1.018 Urine Protein 30 H Urine Glucose [...] Color Urine Appearance Urine pH Ur Specific [place] Urine Protein Urine Glucose (UA) Urine Ketones [...] mg 03/16/24 13:09 Bisacodyl 10 Mg Supp.Rect IA 03/16/25 13:08 DAILY PRN Constipation Cyclobenzaprine HCl 10 mg 03/16/24 13:07 03/18/24 12:36 Cyclobenzaprine 10 Mg Tablet PO 03/16/25 13:06 10 mg TID PRN Administration muscle spasm Docusate Sodium 100 mg 03/16/24 13:09 03/18/24 07:52 Docusate 100 Mg Capsule PO 03/16/25 13:08 100 mg BID PRN Administration Constipation Docusate Sodium 283 mg 03/16/24 13:09 Docusate Enema 283 Mg/5 Ml Enema IA 03/16/25 13:08 DAILY PRN Constipation Enoxaparin Sodium 40 mg 03/19/24 10:00 Enoxaparin 40 Mg/0.4 Ml Syringe SUBCUT 03/19/25 09:59 DAILY@1000 [facility] Ferrous Sulfate 324 mg 03/20/24 09:00 Ferrous [...] PRN Constipation Lisinopril 40 mg 03/17/24 09:00 07/16/24 07:52 Lisinopril 40 Mg Tablet PO 03/17/25 [...] equipment to enhance the patient's a functional shinto Encourage deep breathing exercises and incentive spirometry [...] equipment to enhance the patient's a functional shinto Ensure adequate nutrition and hydration Sleep no issues Pain: Continue current regimen Discharge planning: Home alone in 7 to 10 days. I spent 25 minutes for services, including [id number] encounter with the patient, discussion of the case, plan of care, and exam; and [id number]-va-[id number] activities, such as reviewing pertinent educational consultant documentation, recent therapynotes, laboratory and radiology studies, and discussion of case with care team including physician, nursing, case specialist, and therapists. More than 50 % of time was spent on patient/family counseling or coordination ofcare. Documented By: Albert Swan MD 03/18/24 5571 Signed By: <Electronically signed by Albert Swan MD> 03/19/24 0052 [facility] Work Phone: 1(822) 768-692107-16-2024 Consult note Author Jackelyn Mott [facility] March 18, 2024 12:48pm Note Date/Time March 17, 2024 5:15 pm [facility] [address] [place] [address] Hospitalist Consult Note Signed Patient: Bishnu Love MR#: [id number] : 1945 Acct:[id number] Age/Sex: 78 / M Adm Date: 4 Loc: Room: [address] [place] [address] Type: ADM IN Attending Dr: Albert Swan [...] by therapy services there and transferred to [facility] for ongoing rehabilitative management. Hospitalist team is now consulted for management of chronic conditions including diabetes and hypertension. Nursing did report congestion and wheezing earlier, he was essentially diminished at time of my visit [facility] Medical History Lumbar stenosis Lumbar radiculopathy Colonoscopy [...] PO BID 03/16/24 [History Confirmed 03/16/24] omega 4-hdk-nfo-fish oil 1,000 mg (120 mg-180 mg) capsule [...] mg 03/16/24 13:09 Bisacodyl 10 Mg Supp.Rect IA 03/16/25 13:08 DAILY PRN Constipation Cyclobenzaprine HCl 10 mg 03/16/24 13:07 03/16/24 15:59 Cyclobenzaprine 10 Mg Tablet PO 03/16/25 13:06 10 mg TID PRN Administration muscle spasm Docusate Sodium 100 mg 03/16/24 13:09 Docusate 100 Mg Capsule PO 03/16/25 13:08 BID PRN Constipation Docusate Sodium 283 mg 03/16/24 13:09 Docusate Enema 283 Mg/5 Ml Enema IA 03/16/25 13:08 DAILY PRN Constipation Ferrous Sulfate [...] % (Auto) 58.5, Lymph % (Auto) 24.9, Deuel % (Auto) 13.0, Eos % (Auto) 3.3, Baso % (Auto) 0.3, Nucleat RBC Rel Count 0.1, Neut # (Auto) 4.1, Lymph # (Auto) 1.8, Deuel # (Auto) 0.9 H, Eos # (Auto) [...] PCP and out patient providers to obtain [facility] record entirely to follow up on illnesses, symptoms, abnormal findings that I have and have not addressed duringthis encounter and hospitalization in out patient setting. Documented By: Sharon Ruggiero APRN 03/03 01/24 1500 Signed By: <Electronically signed by RALPH Ruggiero> 03/17/24 1726 <Electronically signed by Jackelyn Mott MD> 03/18/24 1248 [facility] Work Phone: 1(733) 879-403507-16-2024 History and physical note Author Albert Swan [facility] March 18, 2024 11:37am Note Date/Time March 17, 2024 11:1 3am [facility] [address] [place] [address] Physiatry (Rehab) H&P Signed Patient: Bishnu Love MR#: [id number] : 1945 Acct:[id number] Age/Sex: 78 / M Adm Date: 4 Loc: Room: [address] [place] [address] Type: ADM IN Attending Dr: Albert Swan [...] support and can get assistance if necessary. [facility] Medical History Lumbar stenosis Lumbar radiculopathy Colonoscopy [...] PO BID 03/16/24 [History Confirmed 03/16/24] omega 4-knb-vuw-fish oil 1,000 mg (120 mg-180 mg) capsule [...] Bisacodyl (Bisacodyl 10 Mg Supp.Rect) 10 mg IA DAILY PRN PRN Reason: Constipation Stop: 03/16/25 13:08 Cyclobenzaprine HCl (Cyclobenzaprine 10 Mg Tablet) 10 mg PO TID PRN PRN Reason: muscle spasm Stop: 03/16/25 13:06 Last Admin: 03/16/24 15:59 Dose: 10 mg Docusate Sodium (Docusate 100 Mg Capsule) 100 mg PO BID PRN PRN Reason: Constipation Stop: 03/16/25 13:08 Docusate Sodium (Docusate Enema 283 Mg/5 Ml Enema) 283 mg IA DAILY PRN PRN Reason: Constipation Stop: 03/16/25 13:08 Ferrous Sulfate (Ferrous Sulfate 324 Mg Tablet.) 324 mg PO BID [facility] Stop: 03/16/25 20:59 Last Admin: 03/17/24 08:21 Dose: 324 mg Glimepiride (Glimepiride 1 Mg Tablet) 1 mg PO DAILY.WITH.BKFAST [facility] Stop: 03/17/25 07:59 Last Admin: 03/17/24 08:20 Dose: 1 mg Lactulose (Lactulose 20 Gm/30 Ml Udc) 30 gm PO DAILY PRN PRN Reason: Constipation Stop: 03/16/25 13:08 Lisinopril (Lisinopril 40 Mg Tablet) 40 mg PO DAILY [facility] Stop: 03/17/25 08:59 Last Admin: 03/17/24 08:20 Dose: 40 mg Metoprolol Tartrate (Metoprolol Tartrate 50 Mg Tablet) 50 mg PO BID [facility] Stop: 03/17/25 08:59 Last Admin: 03/17/24 08:20 Dose: 50 mg Oxycodone/Acetaminophen (Oxycodone/Acetaminophen 5-325 Mg Tablet) 1 tab PO [id number] PRN Reason: pain Last Admin: 03/17/24 08:21 Dose: 1 tab Pantoprazole Sodium (Pantoprazole 40 Mg Tablet.) 40 mg PO DAILY [facility] Stop: 03/17/25 08:59 Last Admin: 03/17/24 08:20 [...] % (Auto) 58.5 Lymph % (Auto) 24.9 Deuel % (Auto) 13.0 Eos % (Auto) 3.3 Baso % (Auto) 0.3 Nucleat RBC Rel Count 0.1 Neut # (Auto) 4.1 Lymph # (Auto) 1.8 Deuel # (Auto) 0.9 H Eos # (Auto) [...] MPV Neut % (Auto) Lymph % (Auto) Deuel % (Auto) Eos % (Auto) Baso % (Auto) Nucleat RBC Rel Count Neut # (Auto) Lymph # (Auto) Deuel # (Auto) Eos # (Auto) Baso # [...] 14 days Expected Discharge Destination: Home Rehabilitation [facility]: 08. Primary Diagnosis: s/p lumbar spine fusion Patient?s/Family?s [...] 24 hour daily monitoring and intervention from Document Scanner as well as other consulting physicians including internal medicine as well as 24 hour daily legal file clerk nursing - for medical safe / optimal [...] equipment to enhance the patient's a functional shinto Encourage deep breathing exercises and incentive spirometry [...] equipment to enhance the patient's a functional shinto Ensure adequate nutrition and hydration Sleep no issues Pain: Continue current regimen Discharge planning: Home alone in 7 to 10 days. I spent 36 minutes for services, including pxpa-mi-[id number] encounter with the patient, discussion of the case, plan of care, and exam; and vkmdyrk-hp-frsw activities, such as reviewing pertinent educational consultant documentation, recent therapynotes, laboratory and radiology studies, and discussion of case with care team including physician, nursing, case specialist, and therapists. More than 50 % of time was spent on patient/family counseling or coordination ofcare. I completed a substantive portion of this encounter, the medical decision makingportion of this note in its entirety, including Allied health note review, nursing note review, educational consultant note review, discussion with nursing and case management, and more than 50% of my time was spent on counseling and coordination of care, time spent 65 minutes Patient was personally seen by me, Dr. Swan, on the day of encounter, within 24hours of rehab admission, reviewed the history and the relevant portions of the chart, including current orders, allied health and educational consultant notes, labs/imaging and performed sherman elements of exam and I formulated the plan of care and facilitated the medical decision making. Documented By: Glendy Calabrese APRN 03/17/24 1 113 Signed By: <Electronically signed by RALPH Calabrese> 03/17/24 1156 <Electronically signed by Albert Swan MD> 03/18/24 1137 [facility] Work Phone: Evaluation noteNo assessment information available [facility] Work Phone: Evaluation note* Diagnosis Onset Date Resolution Status CKD (chronic kidney disease) acute COVID acute COVID-19 acute Diabetes mellitus acute GERD (gastroesophageal reflux disease) acute Hyperlipemia acute Hypertension acute Impaired mobility and activities of daily living acute Lumbar stenosis acute S/P lumbar fusion acute UTI (urinary tract infection), bacterial acute [facility] Work Phone: Summary Purpose Family History [...] content) DATE CREATED AUTHOR 04/30/2020 Rosales Woody [facility] DATE CREATED AUTHOR AUTHOR'S ORGANIZ ATION 08/23/2022 [facility] DATE CREATED AUTHOR AUTHOR'S ORGANIZ ATION 04/15/2024 [facility] Care Teams (unrecognized sec tion [...] 2023 End: March 31, 2024 Halie Pedraza , MARK Other Provider Active Start: Angelica sousa 2023 [...] Benson MD Other Provider Active Start: J 2023 End: March 31, 2024 Kristan Valle , Other Provider Active Start: Angelica ly 2023 End: March 31, 2024 Dk Patino [...] Kelsea Steele MD Other Provider Active Start: 2023 End: March 31, 2024 Shimon Stout [...] Kowalski RN Other Provider Active Start: J 2023 End: March 31, 2024 Team Status: [...] Star t: March 17, 2024 Nuris Srinivasan , MARK Other Provider [...] Kristan Valle , Other Provider Active Start: Ju ly 2023 Dk Patino , DO Other [...] Provider Active St art: March 17, 2024 Keslea Steele MD Other Provider Active Start: 2023 Shimon Stout MD Other Provider Active [...] Provider Active Start : March 24, 2024 Alex Pabon MD Other Provider Active Start : March 24, 2024 Percy Hernandez DO Other Provider Active [...] Other Provider Active Start: 2023 Dk Patino DO Other Provider Active Start : March 24, 2024 Vilma Kign APRN Other Provider Active Start: March 24, [...] BE BASED ON THE PRIMARY CLINICAL RECORDS. [facility]. provides no warranty or guarantee of the accuracy or completeness of information in this document.
== END 2024-04-18 09:56 | disposition home or self-care (01) ==
LOC: EC 09:55
PROVIDERS: PCP Family Medicine; Visit Provider Orthopaedic Surgery Orthopaedic Surgery of the Spine
DX: M54.50 Low back pain, unspecified (principal); Z47.89 Encounter for other orthopedic aftercare; M43.26 Fusion of spine, lumbar region
CPT/HCPCS: 72100

== ENCOUNTER 2024-06-06 10:49 | Outpatient (OUT) | payer MEDICARE, SELFPAY ==
--- NOTE | 2024-06-06 | XR_ITS ---
[address] [address] Patient Name: QUETA QUIROGA MRN: [id number] date: 1945 Sex: M Assigned Patient Location: Current Patient Location: Accession/Order Number: [id number] Exam Date: 06/06/2024 11:27 Report Date: 06/08/2024 07:24 At the request of: GITA MAGANA Procedure: XR lumbar spine 2-3V EXAMINATION: XR lumbar spine 2-3V HISTORY: LUMBAR SPINE PAIN COMPARISON: XR lumbar spine 04/18/2024 FINDINGS: BONES: Posterior mechanical fusion and osseous facet fusion L2-L5 via bilateral pedicle screws and rods; no appreciable hardware fracture loosening. Minimal grade 1 retrolisthesis of L2 on 3. Posterior decompression L2-L5. DISC SPACES: Moderate narrowing L2-L3 and L5-S1. Mild narrowing at remaining levels. Intervertebral disc spacer at L4-L5. PARASPINOUS: Negative. No paraspinous abnormality is seen. OTHER: Negative. XR/XR lumbar spine 2-3V IMPRESSION: 1. Stable surgical changes without evidence of hardware failure or change in alignment. 2. Stable degenerative changes. Electronically authenticated by: LIVE JOLLEY Date: 06/08/2024 07:24
--- OUTSIDE RECORDS SUMMARY | 2024-06-06 11:05 | XMS_ITS | CCD ---
Author Organization [facility] Inform ion Partnership [facility] Care Team Providers Care Human Service Coordinator Name Role Phone DR KAITLYNN LIZ Attending Unavailable DR KAITLYNN LIZ Consulting Unavailable DR KAITLYNN LIZ Primary Care Unavailable DR KAITLYNN LIZ Admitting Unavailable MD Kaitlynn Liz Primary Care Provider [phone] MD Kaitlynn Liz Attending Provider MD Jed Salgado F Attending Provider [phone] MD Kaitlynn Liz Primary Care Provider [phone] WILLIAM Monte Attending Provider [phone] MD Kaitlynn Liz Primary Care Provider [phone] MD Albert Swan Admit Provider MD Albert Swan Attending Provider MARK Franco Other Provider Unavailable MARK Edge Other Provider Unavailable MARK Martin Other Provider Unavailable MARK Srinivasan Other Provider Unavailable MARK Pedraza Other Provider Unavailable MD Jackelyn Mott Other Provider DO Gisela Chaidez Other Provider MD Alex Pabon Other Provider DO Percy Hernandez Other Provider [phone] MD Josiah Avila Other Provider MD Nancy Poon Other Provider [phone] MD Elvin Reece Other Provider Unavailable RALPH Ruggiero Other Provider MD Rich Mcclain Other Provider [phone] MD Geovani Blue Other Provider MD [...] Other Provider DO Gus Marie Other Provider MD Joey Olson Other Provider RALPH Christopher Other Provider RALPH Cabello Other Provider MD Kelsea Steele Other Provider MD Shimon Stout Other Provider DO Josh Brown Other Provider DO Han Ruth Other Provider MD Felix Gee Other Provider MD Julia Rai Other Provider [phone] RALPH Deal Other Provider MD Antonio Boss Other Provider MD Дмитрий Clemons Other Provider MARK Kowalski Other Provider Unavailable Hoy, Kaitlynn M Attending Unavailable Hoy, Kaitlynn M Primary Care Unavailable Hoy, Kaitlynn M Admitting Unavailable Hoy, Kaitlynn M Primary Care Unavailable Naomi, Selvon F Attending Unavailable Naomi, Selvon F Admitting Unavailable Hoy, Kaitlynn M Primary Care Unavailable Onesimo Monteis L Attending Unavailable Mell, Austin L Admitting Unavailable Beny, Albert Attending Unavailable Beny Albert Admitting Unavailable Hoy, Kaitlynn M Primary [...] Clara De La Torre Consulting Unavailable Ada oV Consulting Unavailable Stephen Salinas Consulting Unavailable Kaitlin [...] Gee Consulting Unavailable Julia Rai Consulting Unava ilable Meche Deal Consulting Unavailable Antonio Boss Consulting Unavailable Дмитрий Clemons Consulting Unavailable Ingrid Kowalski Consulting Unavailable TIA CARO Attending Unavailable Allergies Allergy Classification Reported Allergen(s) Allergy Type Date of Onset Reaction(s) Facility (1 source) Ciprofloxacin Drug Allergy 08-14-[address] [facility] Repository (2 sources) Cephalexin; Translations: [cephalexin] Drug Allergy 03-18-2024 Itching [facility] Medications Current Medications Medication Drug Class(es) [...] Active 10 MG PO Daily at bedtime March 31, 2024 12:00am cyclobenzaprine hydrochloride 10 mg oral tablet (2 sources) Muscle Relaxant Start: 03-16-2024 End: 03-31-2024 take 10 mg by mouth three times daily Cyclobenzaprine Active 10 MG PO Three times daily March 31, 2024 12:00am docusate sodium 100 [...] 16, 2024 12:00am March 31, 2024 9:20am [place] 3-Vjj-Mup-Fish Oil (Fish Oil) 1,000 mg (120 mg-180 mg) capsule (1 source) Start: 03-16-2024 End: 03-31-2024 take 1 capsule by mouth once daily [place] 8-Bja-Dvw-Fish Oil (Fish Oil) 1,000 mg (120 mg-180 [...] on 03-31-2024 Glucose [Mass/Vol] 127 mg/dL Normal [facility] Comment on above: Random Glucose Refer ence Range is dependent on time and content of last meal. Glucose of more than 200 mg/dL in a nonstressed, ambulatory subject supports the diagnosis of Diabetes Mellitus. Result Comment: [facility] Glucose Reference Range is dependent on time and content of last meal. Glucose of more than 200 mg/dL in a nonstressed, ambulatory subject supports the diagnosis of Diabetes Mellitus. PERFORMED BY: [address] [place] [address] PATHOLOGIST TANKERMAN SHELBIE ALMONTE M.D. Performed By: #### G LULS #### Point of Care testing , Glucose Poct Glucometerson 0 03-30-2024 Glucose [Mass/Vol] 203 mg/dL Normal [facility] Comment on above: Result Comment: [facility] Glucose Reference Range is dependent on time and content of last meal. Glucose of more than 200 mg/dL in a nonstressed, ambulatory subject supports the diagnosis of Diabetes Mellitus. PERFORMED BY: [address] [place] [address] PATHOLOGIST TANKERMAN SHELBIE ALMONTE M.D. Performed By: #### G LULS #### Point of Care testing , Glucose [Mass/Vol] 121 mg/dL Normal [facility] Comment on above: Result Comment: [facility] Glucose Reference Range is dependent on time and content of last meal. Glucose of more than 200 mg/dL in a nonstressed, ambulatory subject supports the diagnosis of Diabetes Mellitus. PERFORMED BY: [address] [place] [address] PATHOLOGIST TANKERMAN SHELBIE ALMONTE M.D. Performed By: #### G LULS #### Point of Care testing , Glucose [Mass/Vol] 174 mg/dL Normal [facility] Comment on above: Result Comment: [facility] Glucose Reference Range is dependent on time and content of last meal. Glucose of more than 200 mg/dL in a nonstressed, ambulatory subject supports the diagnosis of Diabetes Mellitus. PERFORMED BY: [address] [place] [id number] PATHOLOGIST TANKERMAN SHELBIE ALMONTE M.D. Performed By: #### G LULS #### Point of Care testing , Glucose [Mass/Vol] 131 mg/dL Normal [facility] Comment on above: Result Comment: [facility] Glucose Reference Range is dependent on time and content of last meal. Glucose of more than 200 mg/dL in a nonstressed, ambulatory subject supports the diagnosis of Diabetes Mellitus. PERFORMED BY: [address] [place] [id number] PATHOLOGIST TANKERMAN SHELBIE ALMONTE M.D. Performed By: #### G LULS #### Point of Care testing , Commemt1 Glu2: Cleaned Meter Normal [facility] Comment on above: Result Comment: PERF ORMED BY: [address] [place] [address] PATHOLOGIST TANKERMAN SHELBIE ALMONTE M.D. Performed By: #### G LULS #### Point of Care testing , Glucose [Mass/Vol] 120 mg/dL Normal [facility] Comment on above: Result Comment: [facility] Glucose Reference Range is dependent on time and content of last meal. Glucose of more than 200 mg/dL in a nonstressed, ambulatory subject supports the diagnosis of Diabetes Mellitus. Performed By: #### G LULS #### Point of Care testing , No Panel InformationOrdered By: Albert Swan on 03-30-2024 Bedside Glucose Comment Glu2: cleaned meter [facility] Glucose Poct Glucometerson 0 03-29-2024 Commemt1 Glu2: Cleaned Meter Normal [facility] Comment on above: Result Comment: PERF ORMED BY: [address] [place] [id number] PATHOLOGIST TANKERMAN SHELBIE ALMONTE M.D. Performed By: #### G LULS #### Point of Care testing , Glucose [Mass/Vol] 204 mg/dL Normal [facility] Comment on above: Result Comment: [facility] Glucose Reference Range is dependent on time and content of last meal. Glucose of more than 200 mg/dL in a nonstressed, ambulatory subject supports the diagnosis of Diabetes Mellitus. Performed By: #### G SUPA #### Point of Care testing , Commemt1 Glu2: Cleaned Meter Normal [facility] Comment on above: Result Comment: PERF ORMED BY: [place] [address] PATHOLOGIST TANKERMAN SHELBIE ALMONTE M.D. Performed By: #### P AB, CMP, CBC #### [address] Glucose [Mass/Vol] 150 mg/dL Normal [facility] Comment on above: Result Comment: [facility] Glucose Reference Range is dependent on time and content of last meal. Glucose of more than 200 mg/dL in a nonstressed, ambulatory subject supports the diagnosis of Diabetes Mellitus. Performed By: #### P AB, CMP, CBC #### [place] [address] [place] Glucose [Mass/Vol] 127 mg/dL Normal [facility] Comment on above: Result Comment: [facility] Glucose Reference Range is dependent on time and content of last meal. Glucose of more than 200 mg/dL in a nonstressed, ambulatory subject supports the diagnosis of Diabetes Mellitus. PERFORMED BY: [place] [address] PATHOLOGIST TANKERMAN SHELBIE ALMONTE M.D. Performed By: #### P AB, CMP, CBC #### [place] [address] [place] Glucose [Mass/Vol] 120 mg/dL Normal [facility] Comment on above: Result Comment: [facility] Glucose Reference Range is dependent on time and content of last meal. Glucose of more than 200 mg/dL in a nonstressed, ambulatory subject supports the diagnosis of Diabetes Mellitus. PERFORMED BY: [place] [address] PATHOLOGIST TANKERMAN SHELBIE ALMONTE M.D. Performed By: #### G LULS #### Point of Care testing , Glucose Poct Glucometerson 0 03-28-2024 Glucose [Mass/Vol] 193 mg/dL Normal [facility] Comment on above: Result Comment: [facility] Glucose Reference Range is dependent on time and content of last meal. Glucose of more than 200 mg/dL in a nonstressed, ambulatory subject supports the diagnosis of Diabetes Mellitus. PERFORMED BY: [address] [place] [address] PATHOLOGIST TANKERMAN SHELBIE ALMONTE M.D. Performed By: #### G LULS #### Point of Care testing , Glucose [Mass/Vol] 105 mg/dL Normal [facility] Comment on above: Result Comment: [facility] Glucose Reference Range is dependent on time and content of last meal. Glucose of more than 200 mg/dL in a nonstressed, ambulatory subject supports the diagnosis of Diabetes Mellitus. Performed By: #### G LULS #### Point of Care testing , Commemt1 Glu2: Cleaned Meter Normal [facility] Comment on above: Result Comment: PERF ORMED BY: [facility] [address] [place] [address] PATHOLOGIST TANKERMAN SHELBIE ALMONTE M.D. Performed By: #### G LULS #### Point of Care testing , Glucose [Mass/Vol] 135 mg/dL Normal [facility] Comment on above: Result Comment: [facility] Glucose Reference Range is dependent on time and content of last meal. Glucose of more than 200 mg/dL in a nonstressed, ambulatory subject supports the diagnosis of Diabetes Mellitus. Performed By: #### G LULS #### Point of Care testing , Glucose [Mass/Vol] 128 mg/dL Normal [facility] Comment on above: Result Comment: [facility] Glucose Reference Range is dependent on time and content of last meal. Glucose of more than 200 mg/dL in a nonstressed, ambulatory subject supports the diagnosis of Diabetes Mellitus. PERFORMED BY: [address] [place] [address] PATHOLOGIST TANKERMAN SHELBIE ALMONTE M.D. Performed By: #### G LULS #### Point of Care testing , Glucose Poct Glucometerson 0 03-27-2024 Glucose [Mass/Vol] 173 mg/dL Normal [facility] Comment on above: Result Comment: [facility] Glucose Reference Range is dependent on time and content of last meal. Glucose of more than 200 mg/dL in a nonstressed, ambulatory subject supports the diagnosis of Diabetes Mellitus. PERFORMED BY: [place] [address] PATHOLOGIST TANKERMAN SHELBIE ALMONTE M.D. Performed By: #### G LULS #### Point of Care testing , Commemt1 Glu2: Cleaned Meter Normal [facility] Comment on above: Result Comment: PERF ORMED BY: [place] [address] PATHOLOGIST TANKERMAN SHELBIE ALMONTE M.D. Performed By: #### P AB, CMP, CBC #### [address] Glucose [Mass/Vol] 156 mg/dL Normal [facility] Comment on above: Result Comment: [facility] Glucose Reference Range is dependent on time and content of last meal. Glucose of more than 200 mg/dL in a nonstressed, ambulatory subject supports the diagnosis of Diabetes Mellitus. Performed By: #### P AB, CMP, CBC #### [address] Glucose [Mass/Vol] 159 mg/dL Normal [facility] Comment on above: Result Comment: [facility] Glucose Reference Range is dependent on time and content of last meal. Glucose of more than 200 mg/dL in a nonstressed, ambulatory subject supports the diagnosis of Diabetes Mellitus. PERFORMED BY: [place] [address] PATHOLOGIST TANKERMAN SHELBIE ALMONTE M.D. Performed By: #### G LULS #### Point of Care testing , Glucose [Mass/Vol] 130 mg/dL Normal [facility] Comment on above: Result Comment: [facility] Glucose Reference Range is dependent on time and content of last meal. Glucose of more than 200 mg/dL in a nonstressed, ambulatory subject supports the diagnosis of Diabetes Mellitus. PERFORMED BY: [address] [address] PATHOLOGIST TANKERMAN SHELBIE ALMONTE M.D. Performed By: #### G LULS #### Point of Care testing , Glucose Poct Glucometerson 0 03-26-2024 Commemt1 Glu2: Cleaned Meter Normal [facility] Comment on above: Result Comment: PERF ORMED BY: [address] [place] [address] PATHOLOGIST TANKERMAN SHELBIE ALMONTE M.D. Performed By: #### G LULS #### Point of Care testing , Glucose [Mass/Vol] 226 mg/dL Normal [facility] Comment on above: Result Comment: [facility] Glucose Reference Range is dependent on time and content of last meal. Glucose of more than 200 mg/dL in a nonstressed, ambulatory subject supports the diagnosis of Diabetes Mellitus. Performed By: #### G LULS #### Point of Care testing , Glucose [Mass/Vol] 92 mg/dL Normal [facility] Comment on above: Result Comment: [facility] Glucose Reference Range is dependent on time and content of last meal. Glucose of more than 200 mg/dL in a nonstressed, ambulatory subject supports the diagnosis of Diabetes Mellitus. PERFORMED BY: [address] [address] PATHOLOGIST TANKERMAN SHELBIE ALMONTE M.D. Performed By: #### G LULS #### Point of Care testing , Glucose [Mass/Vol] 239 mg/dL Normal [facility] Comment on above: Result Comment: [facility] Glucose Reference Range is dependent on time and content of last meal. Glucose of more than 200 mg/dL in a nonstressed, ambulatory subject supports the diagnosis of Diabetes Mellitus. PERFORMED BY: [address] [address] PATHOLOGIST TANKERMAN SHELBIE ALMONTE M.D. Performed By: #### G LULS #### Point of Care testing , Glucose [Mass/Vol] 129 mg/dL Normal [facility] Comment on above: Result Comment: [facility] Glucose Reference Range is dependent on time and content of last meal. Glucose of more than 200 mg/dL in a nonstressed, ambulatory subject supports the diagnosis of Diabetes Mellitus. PERFORMED BY: [place] [address] PATHOLOGIST TANKERMAN SHELBIE ALMONTE M.D. Performed By: #### G LULS #### Point of Care testing , Glucose Poct Glucometerson 0 03-25-2024 Commemt1 Glu2: Cleaned Meter Normal [facility] Comment on above: Result Comment: PERF ORMED BY: [place] [address] PATHOLOGIST TANKERMAN SHELBIE ALMONTE M.D. Performed By: #### P AB, CMP, CBC #### [address] Glucose [Mass/Vol] 196 mg/dL Normal [facility] Comment on above: Result Comment: [facility] Glucose Reference Range is dependent on time and content of last meal. Glucose of more than 200 mg/dL in a nonstressed, ambulatory subject supports the diagnosis of Diabetes Mellitus. Performed By: #### P AB, CMP, CBC #### [address] Commemt1 Glu2: Cleaned Meter Normal [facility] Comment on above: Result Comment: PERF ORMED BY: [place] [address] PATHOLOGIST TANKERMAN SHELBIE ALMONTE M.D. Performed By: #### G LULS #### Point of Care testing , Glucose [Mass/Vol] 114 mg/dL Normal [facility] Comment on above: Result Comment: [facility] Glucose Reference Range is dependent on time and content of last meal. Glucose of more than 200 mg/dL in a nonstressed, ambulatory subject supports the diagnosis of Diabetes Mellitus. Performed By: #### G LULS #### Point of Care testing , Glucose [Mass/Vol] 258 mg/dL Normal [facility] Comment on above: Result Comment: [facility] Glucose Reference Range is dependent on time and content of last meal. Glucose of more than 200 mg/dL in a nonstressed, ambulatory subject supports the diagnosis of Diabetes Mellitus. PERFORMED BY: [place] [address] PATHOLOGIST TANKERMAN SHELBIE ALMONTE M.D. Performed By: #### P AB, CMP, CBC #### [address] Glucose [Mass/Vol] 148 mg/dL Normal [facility] Comment on above: Result Comment: [facility] Glucose Reference Range is dependent on time and content of last meal. Glucose of more than 200 mg/dL in a nonstressed, ambulatory subject supports the diagnosis of Diabetes Mellitus. PERFORMED BY: [place] [address] PATHOLOGIST TANKERMAN SHELBIE ALMONTE M.D. Performed By: #### G LULS #### Point of Care testing , COVID-19 [facility] 03-24-2024 SARS-CoV-2 (COVID-19) RNA BENITO+probe Ql (Unsp spec) Negative Normal Negative [facility] Comment on above: Order Comment: Healt hcare Worker?: N Result Comment: Testing for SARS-CoV-2 by RT-PCR This test was developed and its performance characteristics determined by [employer] ([employer]) and validated at the [facility]. This test has not been FDA [...] is terminated or revoked sooner. PERFORMED BY: [facility] [address] [place] [address] PATHOLOGIST TANKERMAN SHELBIE ALMONTE M.D. Performed By: #### G LULS #### Point of Care testing , COVID-19 Positive/NegativeOr dered By: Albert Swan on 03-24-2024 SARS-CoV-2 (COVID-19) N gene BENITO+probe Ql (Resp) Negative Negative [facility] Comment on above: Testing for SARS-CoV -2 by RT-PCRThis test was developed and its performance characteristics determined by [employer] ([employer]) and validated at the [facility]. This test has not been FDA [...] 03-24-2024 Glucose [Mass/Vol] 152 mg/dL Normal [facility] Comment on above: Result Comment: [facility] Glucose Reference Range is dependent on time and content of last meal. Glucose of more than 200 mg/dL in a nonstressed, ambulatory subject supports the diagnosis of Diabetes Mellitus. PERFORMED BY: [facility] [address] [place] [address] PATHOLOGIST TANKERMAN SHELBIE ALMONTE M.D. Performed By: #### G LULS #### Point of Care testing , Commemt1 Glu2: Cleaned Meter Normal [facility] Comment on above: Result Comment: PERF ORMED BY: [place] [address] PATHOLOGIST TANKERMAN SHELBIE ALMONTE M.D. Performed By: #### G LULS #### Point of Care testing , Glucose [Mass/Vol] 117 mg/dL Normal [facility] Comment on above: Result Comment: [facility] Glucose Reference Range is dependent on time and content of last meal. Glucose of more than 200 mg/dL in a nonstressed, ambulatory subject supports the diagnosis of Diabetes Mellitus. Performed By: #### G LULS #### Point of Care testing , Glucose [Mass/Vol] 149 mg/dL Normal [facility] Comment on above: Result Comment: [facility] Glucose Reference Range is dependent on time and content of last meal. Glucose of more than 200 mg/dL in a nonstressed, ambulatory subject supports the diagnosis of Diabetes Mellitus. PERFORMED BY: [place] [address] PATHOLOGIST TANKERMAN SHELBIE ALMONTE M.D. Performed By: #### G LULS #### Point of Care testing , Commemt1 Glu2: Cleaned Meter Normal [facility] Comment on above: Result Comment: PERF ORMED BY: [address] [place] [address] PATHOLOGIST TANKERMAN SHELBIE ALMONTE M.D. Performed By: #### G LULS #### Point of Care testing , Glucose [Mass/Vol] 146 mg/dL Normal [facility] Comment on above: Result Comment: [facility] Glucose Reference Range is dependent on time and content of last meal. Glucose of more than 200 mg/dL in a nonstressed, ambulatory subject supports the diagnosis of Diabetes Mellitus. Performed By: #### G LULS #### Point of Care testing , Laboratory - Microbiology an d Antimicrobial susceptibilityOrdered By: Albert Swan on 03-24-2024 SARS-CoV-2 (COVID-19) RNA BENITO+probe Ql (Unsp spec) N/A [facility] Automated basophil %Ordered By: Glendy Calabrese on 03-23-2024 Basophils/100 WBC (Bld) 0.4 % Normal . [facility] Comment on above: Performed By: #### P AB, CMP, CBC #### [address] Automated basophil countOrde red By: Glendy Calabrese on 03-23-2024 Basophils (Bld) [#/Vol] 0.0 10*3/uL Normal 0.0-0.2 [facility] Comment on above: Result Comment: PERF ORMED BY: [place] [address] PATHOLOGIST TANKERMAN SHELBIE ALMONTE M.D. Performed By: #### P AB, CMP, CBC #### [address] Automated blood monocyte cou ntOrdered By: Glendy Calabrese on 03-23-2024 Monocytes (Bld) [#/Vol] 0.9 10*3/uL High 0.0-0.8 [facility] Comment on above: Performed By: #### P AB, CMP, CBC #### [address] Automated eosinophil %Ordere d By: Glendy Calabrese on 03-23-2024 Eosinophils/100 WBC (Bld) 3.3 % Normal . [facility] Comment on above: Performed By: #### P AB, CMP, CBC #### [address] Automated eosinophil countOr dered By: Glendy Calabrese on 03-23-2024 Eosinophils (Bld) [#/Vol] 0.2 10*3/uL Normal 0.0-0.45 [facility] Comment on above: Performed By: #### P AB, CMP, CBC #### [address] Automated monocyte %Ordered By: Glendy Calabrese on 03-23-2024 Monocytes/100 WBC (Bld) 12.8 % Normal . [facility] Comment on above: Performed By: #### P AB, CMP, CBC #### [address] Automated neutrophil %Ordere d By: Glendy Calabrese on 03-23-2024 Neutrophils/100 WBC (Bld) 63.1 % Normal . [facility] Comment on above: Performed By: #### P AB, CMP, CBC #### [address] Basic Metabolic Panelon 03-04 Creatinine Clr Calc Pharmacy 52.37 Normal [facility] Comment on above: Result Comment: PERF ORMED BY: [place] [address] PATHOLOGIST TANKERMAN SHELBIE ALMONTE M.D. Performed By: #### P AB, CMP, CBC #### [address] GFR/1.73 sq M.predicted MDRD (S/P/Bld) [Vol rate/Area] 52.800 mL/min/{1.73_m2} Normal [facility] Comment on above: Performed By: #### P AB, CMP, CBC #### [address] Calcium [Mass/volume] in Ser um or PlasmaOrdered By: Glendy Calabrese on 03-23-2024 Calcium [Mass/Vol] 8.9 mg/dL Normal 8.6-10.3 [facility] Comment on above: Performed By: #### P AB, CMP, CBC #### [address] Carbon dioxide, total [Moles /volume] in Serum or PlasmaOrdered By: Glendy Calabrese on 03-23-2024 CO2 [Moles/Vol] 27.6 mmol/L Normal 21.0-31.0 [facility] Comment on above: Performed By: #### P AB, CMP, CBC #### [place] [address] [place] Chloride [Moles/volume] in S bhavin or PlasmaOrdered By: Glendy Calabrese on 03-23-2024 Chloride [Moles/Vol] 99 mmol/L Normal 98-107 [facility] Comment on above: Performed By: #### P AB, CMP, CBC #### [address] Complete Blood Count Auto Di ffon 03-23-2024 Mean Corpuscular HGB Conc 33.4 g/dL Normal 32.5-35.6 [facility] Comment on above: Performed By: #### P AB, CMP, CBC #### [address] NRBC% 0.1 /100{WBC} Normal 0-0.5 [facility] Comment on above: Performed By: #### P AB, CMP, CBC #### [address] Creatinine [Mass/volume] in Serum or PlasmaOrdered By: Glendy Calabrese on 03-23-2024 Creatinine [Mass/Vol] 1.37 mg/dL High 0.70-1.30 [facility] Comment on above: Performed By: #### P AB, CMP, CBC #### [address] Erythrocyte distribution wid th [Ratio] by Automated countOrdered By: Glendy Calabrese on 03-23-2024 Erythrocyte distribution width (RBC) [Ratio] 13.2 % Normal 12.0-14.8 [facility] Comment on above: Performed By: #### P AB, CMP, CBC #### [address] Erythrocytes [#/volume] in B lood by Automated countOrdered By: Glendy Calabrese on 03-23-2024 RBC (Bld) [#/Vol] 2.75 10*6/uL Low 3.90-5.60 [facility] Comment on above: Performed By: #### P AB, CMP, CBC #### [address] Glucose Poct Glucometerson 0 03-23-2024 Glucose [Mass/Vol] 163 mg/dL Normal [facility] Comment on above: Result Comment: [facility] om Glucose Reference Range is dependent on time and content of last meal. Glucose of more than 200 mg/dL in a nonstressed, ambulatory subject supports the diagnosis of Diabetes Mellitus. PERFORMED BY: [place] [address] PATHOLOGIST TANKERMAN SHELBIE ALMONTE M.D. Performed By: #### P AB, CMP, CBC #### [address] Commemt1 Glu2: Cleaned Meter Normal [facility] Comment on above: Result Comment: PERF ORMED BY: [place] [address] PATHOLOGIST TANKERMAN SHELBIE ALMONTE M.D. Performed By: #### G LULS #### Point of Care testing , Glucose [Mass/Vol] 158 mg/dL Normal [facility] Comment on above: Result Comment: [facility] om Glucose Reference Range is dependent on time and content of last meal. Glucose of more than 200 mg/dL in a nonstressed, ambulatory subject supports the diagnosis of Diabetes Mellitus. Performed By: #### G LULS #### Point of Care testing , Commemt1 Glu2: Cleaned Meter Normal [facility] Comment on above: Result Comment: PERF ORMED BY: [place] [address] PATHOLOGIST TANKERMAN SHELBIE ALMONTE M.D. Performed By: #### G LULS #### Point of Care testing , Glucose [Mass/Vol] 162 mg/dL Normal [facility] Comment on above: Result Comment: [facility] om Glucose Reference Range is dependent on time and content of last meal. Glucose of more than 200 mg/dL in a nonstressed, ambulatory subject supports the diagnosis of Diabetes Mellitus. Performed By: #### G LULS #### Point of Care testing , Glucose [Mass/Vol] 129 mg/dL Normal [facility] Comment on above: Result Comment: [facility] om Glucose Reference Range is dependent on time and content of last meal. Glucose of more than 200 mg/dL in a nonstressed, ambulatory subject supports the diagnosis of Diabetes Mellitus. PERFORMED BY: [address] [place] [id number] PATHOLOGIST TANKERMAN SHELBIE ALMONTE M.D. Performed By: #### G LUHOMERO #### Point of Care testing , Glucose [Mass/Vol] 122 mg/dL Normal [facility] Comment on above: Result Comment: [facility] om Glucose Reference Range is dependent on time and content of last meal. Glucose of more than 200 mg/dL in a nonstressed, ambulatory subject supports the diagnosis of Diabetes Mellitus. PERFORMED BY: [address] [place] [address] PATHOLOGIST TANKERMAN SHELBIE ALMONTE M.D. Performed By: #### G SUPA #### Point of Care testing , Glucose [Mass/volume] in Ser um or PlasmaOrdered By: Glendy Calabrese on 03-23-2024 Glucose [Mass/Vol] 109 mg/dL High 70-100 [facility] Comment on above: ADA recommended refe rence rangeRandom Glucose Reference Range is dependent on time and content of last meal. Glucose of more than 200 mg/dL in a nonstressed, ambulatory subject supports the diagnosis of Diabetes Mellitus. Result Comment: [facility] om Glucose Reference Range is dependent on time and content of last meal. Glucose of more than 200 mg/dL in a nonstressed, ambulatory subject supports the diagnosis of Diabetes Mellitus. ADA recommended reference range Performed By: #### P AB, CMP, CBC #### [facility] [address] [place] [address] [place] Hematocrit [Volume Fraction] of Blood by Automated countOrdered By: Glendy Calabrese on 03-23-2024 Hematocrit (Bld) [Volume fraction] 28.1 % Low 38.8-50.0 [facility] Comment on above: Performed By: #### P AB, CMP, CBC #### [facility] [address] [place] [address] Hemoglobin [Mass/volume] in BloodOrdered By: Glendy Calabrese on 03-23-2024 Hemoglobin (Bld) [Mass/Vol] 9.4 g/dL Low 13.0-17.0 [facility] Comment on above: Performed By: #### P AB, CMP, CBC #### [facility] [address] [place] [address] Leukocytes [#/volume] correc nadine for nucleated erythrocytes in Blood by Automated counOrdered By: Glendy Calabrese on 03-23-2024 WBC corrected for nucl RBC Auto (Bld) [#/Vol] 7.2 10*3/uL 4.1-10.5 [facility] Leukocytes [#/volume] in Blo od by Automated countOrdered By: Glendy Calabrese on 03-23-2024 WBC (Bld) [#/Vol] 7.2 10*3/uL Normal 4.1-10.5 [facility] Comment on above: Performed By: #### P AB, CMP, CBC #### [address] Lymphocytes [#/volume] in Bl ood by Automated countOrdered By: Glendy Calabrese on 03-23-2024 Lymphocytes (Bld) [#/Vol] 1.5 10*3/uL Normal 1.00-4.8 [facility] Comment on above: Performed By: #### P AB, CMP, CBC #### [facility] [address] [place] [address] Lymphocytes/100 leukocytes i n Blood by Automated countOrdered By: Glendy Calabrese on 03-23-2024 Lymphocytes/100 WBC (Bld) 20.4 % Normal . [facility] Comment on above: Performed By: #### P AB, CMP, CBC #### [place] [address] [place] MCH [Entitic mass] by Automa nadine countOrdered By: Glendy Calabrese on 03-23-2024 MCH (RBC) [Entitic mass] 34.1 pg Normal 27.5-35.2 [facility] Comment on above: Performed By: #### P AB, CMP, CBC #### [address] MCHC Auto (RBC) [Mass/Vol]Or dered By: Glendy Calabrese on 03-23-2024 MCHC (RBC) [Mass/Vol] 33.4 g/dL 32.5-35.6 [facility] MCV [Entitic volume] by Auto mated countOrdered By: Glendy Calabrese on 03-23-2024 MCV (RBC) [Entitic vol] 102.1 fL High 83.5-101 [facility] Comment on above: Performed By: #### P AB, CMP, CBC #### [facility] [address] Neutrophils [#/volume] in Bl ood by Automated countOrdered By: Glendy Calabrese on 03-23-2024 Neutrophils (Bld) [#/Vol] 4.6 10*3/uL Normal 1.8-7.7 [facility] Comment on above: Performed By: #### P AB, CMP, CBC #### [facility] [address] [place] [address] No Panel InformationOrdered By: Glendy Calabrese on 03-23-2024 Estimated GFR (CKD-EPI) 52.800 mL/Min [facility] Creatinine Clearance (Chem 52.37 [facility] Nucleated erythrocytes [Pres ence] in Blood by Automated countOrdered By: Glendy Calabrese on 03-23-2024 Nucleated RBC Auto Ql (Bld) 0.1 /100{WBC} 0-0.5 [facility] Platelet mean volume [Entiti c volume] in Blood by Automated countOrdered By: Glendy Calabrese on 03-23-2024 Platelet mean volume (Bld) [Entitic vol] 8.0 fL Normal 6.6-10.1 [facility] Comment on above: Performed By: #### P AB, CMP, CBC #### [facility] [address] [place] [address] Platelets [#/volume] in Bloo d by Automated countOrdered By: Glendy Calabrese on 03-23-2024 Platelets (Bld) [#/Vol] 242 10*3/uL Normal 150-450 [facility] Comment on above: Performed By: #### P AB, CMP, CBC #### [place] [address] [place] Potassium [Moles/volume] in Serum or PlasmaOrdered By: Glendy Calabrese on 03-23-2024 Potassium [Moles/Vol] 4.3 mmol/L Normal 3.5-5.1 [facility] Comment on above: Performed By: #### P AB, CMP, CBC #### [address] Serum or plasma anion gap de terminationOrdered By: Glendy Calabrese on 03-23-2024 Anion gap [Moles/Vol] 11.7 mmol/L Normal 6.0-15.0 [facility] Comment on above: Performed By: #### P AB, CMP, CBC #### [address] Sodium [Moles/volume] in Ser um or PlasmaOrdered By: Glendy Calabrese on 03-23-2024 Sodium [Moles/Vol] 134 mmol/L Low 136-145 [facility] Comment on above: Performed By: #### P AB, CMP, CBC #### [address] Urea nitrogen [Mass/volume] in Serum or PlasmaOrdered By: Glendy Calabrese on 03-23-2024 Urea nitrogen [Mass/Vol] 20 mg/dL Normal 7-25 [facility] Comment on above: Performed By: #### P AB, CMP, CBC #### [address] Glucose Poct Glucometerson 0 03-22-2024 Glucose [Mass/Vol] 210 mg/dL Normal [facility] Comment on above: Result Comment: [facility] Glucose Reference Range is dependent on time and content of last meal. Glucose of more than 200 mg/dL in a nonstressed, ambulatory subject supports the diagnosis of Diabetes Mellitus. PERFORMED BY: [place] [address] PATHOLOGIST TANKERMAN SHELBIE ALMONTE M.D. Performed By: #### G LULS #### Point of Care testing , Glucose [Mass/Vol] 116 mg/dL Normal [facility] Comment on above: Result Comment: [facility] Glucose Reference Range is dependent on time and content of last meal. Glucose of more than 200 mg/dL in a nonstressed, ambulatory subject supports the diagnosis of Diabetes Mellitus. PERFORMED BY: [address] [place] [address] PATHOLOGIST TANKERMAN SHELBIE ALMONTE M.D. Performed By: #### G LULS #### Point of Care testing , Glucose [Mass/Vol] 126 mg/dL Normal [facility] Comment on above: Result Comment: [facility] Glucose Reference Range is dependent on time and content of last meal. Glucose of more than 200 mg/dL in a nonstressed, ambulatory subject supports the diagnosis of Diabetes Mellitus. PERFORMED BY: [address] [address] PATHOLOGIST TANKERMAN SHELBIE ALMONTE M.D. Performed By: #### G LULS #### Point of Care testing , Glucose [Mass/Vol] 125 mg/dL Normal [facility] Comment on above: Result Comment: [facility] Glucose Reference Range is dependent on time and content of last meal. Glucose of more than 200 mg/dL in a nonstressed, ambulatory subject supports the diagnosis of Diabetes Mellitus. PERFORMED BY: [address] [place] [address] PATHOLOGIST TANKERMAN SHELBIE ALMONTE M.D. Performed By: #### G LULS #### Point of Care testing , Glucose Poct Glucometerson 0 03-21-2024 Glucose [Mass/Vol] 222 mg/dL Normal [facility] Comment on above: Result Comment: [facility] Glucose Reference Range is dependent on time and content of last meal. Glucose of more than 200 mg/dL in a nonstressed, ambulatory subject supports the diagnosis of Diabetes Mellitus. PERFORMED BY: [facility] [address] [facility] [place] [address] PATHOLOGIST TANKERMAN SHELBIE ALMONTE M.D. Performed By: #### G LULS #### Point of Care testing , Commemt1 Glu2: Cleaned Meter Normal [facility] Comment on above: Result Comment: PERF ORMED BY: [place] [address] PATHOLOGIST TANKERMAN SHELBIE ALMONTE M.D. Performed By: #### G LULS #### Point of Care testing , Glucose [Mass/Vol] 117 mg/dL Normal [facility] Comment on above: Result Comment: [facility] Glucose Reference Range is dependent on time and content of last meal. Glucose of more than 200 mg/dL in a nonstressed, ambulatory subject supports the diagnosis of Diabetes Mellitus. Performed By: #### G LULS #### Point of Care testing , Commemt1 Glu2: Cleaned Meter Normal [facility] Comment on above: Result Comment: PERF ORMED BY: [place] [address] PATHOLOGIST TANKERMAN SHELBIE ALMONTE M.D. Performed By: #### G LULS #### Point of Care testing , Glucose [Mass/Vol] 178 mg/dL Normal [facility] Comment on above: Result Comment: [facility] Glucose Reference Range is dependent on time and content of last meal. Glucose of more than 200 mg/dL in a nonstressed, ambulatory subject supports the diagnosis of Diabetes Mellitus. Performed By: #### G LULS #### Point of Care testing , Glucose [Mass/Vol] 112 mg/dL Normal [facility] Comment on above: Result Comment: [facility] Glucose Reference Range is dependent on time and content of last meal. Glucose of more than 200 mg/dL in a nonstressed, ambulatory subject supports the diagnosis of Diabetes Mellitus. PERFORMED BY: [place] [address] PATHOLOGIST TANKERMAN SHELBIE ALMONTE M.D. Performed By: #### P AB, CMP, CBC #### [address] Basic Metabolic Panelon 03-03 Anion gap [Moles/Vol] Not performed Normal 6.0-15.0 [facility] Comment on above: Performed By: #### P AB, CMP, CBC #### [facility] [address] [place] [address] [place] Calcium [Mass/Vol] 8.7 mg/dL Normal 8.6-10.3 [facility] Comment on above: Performed By: #### P AB, CMP, CBC #### [facility] [address] [place] [address] [place] Chloride [Moles/Vol] 101 mmol/L Normal 98-107 [facility] Comment on above: Performed By: #### P AB, CMP, CBC #### [facility] [address] [place] [address] [place] CO2 [Moles/Vol] 26.8 mmol/L Normal 21.0-31.0 [facility] Comment on above: Performed By: #### P AB, CMP, CBC #### [place] [address] [place] Creatinine [Mass/Vol] 1.50 mg/dL High 0.70-1.30 [facility] Comment on above: Performed By: #### P AB, CMP, CBC #### [place] [address] [place] Creatinine Clr Calc Pharmacy 47.83 Normal [facility] Comment on above: Result Comment: PERF ORMED BY: [place] [address] PATHOLOGIST TANKERMAN SHELBIE ALMONTE M.D. Performed By: #### P AB, CMP, CBC #### [place] [address] [place] GFR/1.73 sq M.predicted MDRD (S/P/Bld) [Vol rate/Area] 47.358 mL/min/{1.73_m2} Normal [facility] Comment on above: Performed By: #### P AB, CMP, CBC #### [facility] [address] Glucose [Mass/Vol] 97 mg/dL Normal 70-100 [facility] Comment on above: Result Comment: [facility] Glucose Reference Range is dependent on time and content of last meal. Glucose of more than 200 mg/dL in a nonstressed, ambulatory subject supports the diagnosis of Diabetes Mellitus. ADA recommended reference range Performed By: #### P AB, CMP, CBC #### [address] Potassium Normal 3.5-5.1 [facility] Comment on above: Result Comment: Spec imen hemolyzed, redraw requested Performed By: #### P AB, CMP, CBC #### [address] Sodium [Moles/Vol] 135 mmol/L Low 136-145 [facility] Comment on above: Performed By: #### P AB, CMP, CBC #### [address] Urea nitrogen [Mass/Vol] 25 mg/dL Normal 7-25 [facility] Comment on above: Performed By: #### P AB, CMP, CBC #### [address] Complete Blood Count Auto Di ffon 03-20-2024 Basophils (Bld) [#/Vol] 0.0 10*3/uL Normal 0.0-0.2 [facility] Comment on above: Result Comment: PERF ORMED BY: [place] [address] PATHOLOGIST TANKERMAN SHELBIE ALMONTE M.D. Performed By: #### P AB, CMP, CBC #### [address] Basophils/100 WBC (Bld) 0.5 % Normal . [facility] Comment on above: Performed By: #### P AB, CMP, CBC #### [place] [address] [place] Eosinophils (Bld) [#/Vol] 0.2 10*3/uL Normal 0.0-0.45 [facility] Comment on above: Performed By: #### P AB, CMP, CBC #### [place] [address] [place] Eosinophils/100 WBC (Bld) 2.9 % Normal . [facility] Comment on above: Performed By: #### P AB, CMP, CBC #### [address] Erythrocyte distribution width (RBC) [Ratio] 13.3 % Normal 12.0-14.8 [facility] Comment on above: Performed By: #### P AB, CMP, CBC #### [address] Hematocrit (Bld) [Volume fraction] 27.7 % Low 38.8-50.0 [facility] Comment on above: Performed By: #### P AB, CMP, CBC #### [address] Hemoglobin (Bld) [Mass/Vol] 9.3 g/dL Low 13.0-17.0 [facility] Comment on above: Performed By: #### P AB, CMP, CBC #### [address] Lymphocytes (Bld) [#/Vol] 2.1 10*3/uL Normal 1.00-4.8 [facility] Comment on above: Performed By: #### P AB, CMP, CBC #### [address] Lymphocytes/100 WBC (Bld) 25.9 % Normal . [facility] Comment on above: Performed By: #### P AB, CMP, CBC #### [address] MCH (RBC) [Entitic mass] 35.1 pg Normal 27.5-35.2 [facility] Comment on above: Performed By: #### P AB, CMP, CBC #### [address] MCV (RBC) [Entitic vol] 104.1 fL High 83.5-101 [facility] Comment on above: Performed By: #### P AB, CMP, CBC #### [address] Mean Corpuscular HGB Conc 33.7 g/dL Normal 32.5-35.6 [facility] Comment on above: Performed By: #### P AB, CMP, CBC #### [address] Monocytes (Bld) [#/Vol] 1.1 10*3/uL High 0.0-0.8 [facility] Comment on above: Performed By: #### P AB, CMP, CBC #### [address] Monocytes/100 WBC (Bld) 13.5 % Normal . [facility] Comment on above: Performed By: #### P AB, CMP, CBC #### [address] Neutrophils (Bld) [#/Vol] 4.7 10*3/uL Normal 1.8-7.7 [facility] Comment on above: Performed By: #### P AB, CMP, CBC #### [address] Neutrophils/100 WBC (Bld) 57.2 % Normal . [facility] Comment on above: Performed By: #### P AB, CMP, CBC #### [address] NRBC% 0.1 /100{WBC} Normal 0-0.5 [facility] Comment on above: Performed By: #### P AB, CMP, CBC #### [address] Platelet mean volume (Bld) [Entitic vol] 8.5 fL Normal 6.6-10.1 [facility] Comment on above: Performed By: #### P AB, CMP, CBC #### [address] Platelets (Bld) [#/Vol] 244 10*3/uL Normal 150-450 [facility] Comment on above: Performed By: #### P AB, CMP, CBC #### [address] RBC (Bld) [#/Vol] 2.66 10*6/uL Low 3.90-5.60 [facility] Comment on above: Performed By: #### P AB, CMP, CBC #### [address] WBC (Bld) [#/Vol] 8.1 10*3/uL Normal 4.1-10.5 [facility] Comment on above: Performed By: #### P AB, CMP, CBC #### [address] Glucose Poct Glucometerson 0 03-20-2024 Commemt1 Glu2: Cleaned Meter Normal [facility] Comment on above: Performed By: #### G LULS #### Point of Care testing , Commemt2 WILL NOTIFY DR/RN Normal [facility] Comment on above: Result Comment: PERF ORMED BY: [place] [address] PATHOLOGIST TANKERMAN SHELBIE ALMONTE M.D. Performed By: #### G LULS #### Point of Care testing , Glucose [Mass/Vol] 159 mg/dL Normal [facility] Comment on above: Result Comment: [facility] Glucose Reference Range is dependent on time and content of last meal. Glucose of more than 200 mg/dL in a nonstressed, ambulatory subject supports the diagnosis of Diabetes Mellitus. Performed By: #### G LULS #### Point of Care testing , Glucose [Mass/Vol] 152 mg/dL Normal [facility] Comment on above: Result Comment: [facility] Glucose Reference Range is dependent on time and content of last meal. Glucose of more than 200 mg/dL in a nonstressed, ambulatory subject supports the diagnosis of Diabetes Mellitus. PERFORMED BY: [place] [address] PATHOLOGIST TANKERMAN SHELBIE ALMONTE M.D. Performed By: #### P AB, CMP, CBC #### [address] Glucose [Mass/Vol] 124 mg/dL Normal [facility] Comment on above: Result Comment: [facility] Glucose Reference Range is dependent on time and content of last meal. Glucose of more than 200 mg/dL in a nonstressed, ambulatory subject supports the diagnosis of Diabetes Mellitus. PERFORMED BY: [place] [address] PATHOLOGIST TANKERMAN SHELBIE ALMONTE M.D. Performed By: #### G LULS #### Point of Care testing , Glucose [Mass/Vol] 118 mg/dL Normal [facility] Comment on above: Result Comment: [facility] Glucose Reference Range is dependent on time and content of last meal. Glucose of more than 200 mg/dL in a nonstressed, ambulatory subject supports the diagnosis of Diabetes Mellitus. PERFORMED BY: [place] [address] PATHOLOGIST TANKERMAN SHELBIE ALMONTE M.D. Performed By: #### G LULS #### Point of Care testing , No Panel InformationOrdered By: Albert Swan on 03-20-2024 Bedside Glucose #[address]/rn [facility] Redraw Potassiumon 4 Potassium [Moles/Vol] 4.7 mmol/L Normal 3.5-5.1 [facility] Comment on above: Order Comment: 1ST S pecimen hemolyzed, redraw requested Result Comment: PERF ORMED BY: [place] [address] PATHOLOGIST TANKERMAN SHELBIE ALMONTE M.D. Performed By: #### P AB, CMP, CBC #### [facility] [address] [place] [id number] [place] Basic Metabolic Panelon 03-03 Anion gap [Moles/Vol] 11.0 mmol/L Normal 6.0-15.0 [facility] Comment on above: Performed By: #### C BC, BMP #### [facility] [address] [place] [address] [place] Calcium [Mass/Vol] 8.8 mg/dL Normal 8.6-10.3 [facility] Comment on above: Performed By: #### C BC, BMP #### [place] [address] [place] Chloride [Moles/Vol] 101 mmol/L Normal 98-107 [facility] Comment on above: Performed By: #### C BC, BMP #### [place] [address] [place] CO2 [Moles/Vol] 28.4 mmol/L Normal 21.0-31.0 [facility] Comment on above: Performed By: #### C BC, BMP #### [place] [address] [place] Creatinine [Mass/Vol] 1.48 mg/dL High 0.70-1.30 [facility] Comment on above: Performed By: #### C BC, BMP #### [place] [address] [place] Creatinine Clr Calc Pharmacy 48.48 Normal [facility] Comment on above: Result Comment: PERF ORMED BY: [place] [address] PATHOLOGIST TANKERMAN SHELBIE ALMONTE M.D. Performed By: #### C BC, BMP #### [address] GFR/1.73 sq M.predicted MDRD (S/P/Bld) [Vol rate/Area] 48.126 mL/min/{1.73_m2} Normal [facility] Comment on above: Performed By: #### C BC, BMP #### [place] [address] [place] Glucose [Mass/Vol] 108 mg/dL High 70-100 [facility] Comment on above: Result Comment: [facility] Glucose Reference Range is dependent on time and content of last meal. Glucose of more than 200 mg/dL in a nonstressed, ambulatory subject supports the diagnosis of Diabetes Mellitus. ADA recommended reference range Performed By: #### C BC, BMP #### [place] [address] [place] Potassium [Moles/Vol] 4.4 mmol/L Normal 3.5-5.1 [facility] Comment on above: Performed By: #### C BC, BMP #### [address] Sodium [Moles/Vol] 136 mmol/L Normal 136-145 [facility] Comment on above: Performed By: #### C BC, BMP #### [address] Urea nitrogen [Mass/Vol] 24 mg/dL Normal 7-25 [facility] Comment on above: Performed By: #### C BC, BMP #### [address] Complete Blood Count Auto Di ffon 03-19-2024 Basophils (Bld) [#/Vol] 0.0 10*3/uL Normal 0.0-0.2 [facility] Comment on above: Result Comment: PERF ORMED BY: [place] [address] PATHOLOGIST TANKERMAN SHELBIE ALMONTE M.D. Performed By: #### P AB, CMP, CBC #### [address] Basophils/100 WBC (Bld) 0.4 % Normal . [facility] Comment on above: Performed By: #### P AB, CMP, CBC #### [place] [address] [place] Eosinophils (Bld) [#/Vol] 0.1 10*3/uL Normal 0.0-0.45 [facility] Comment on above: Performed By: #### P AB, CMP, CBC #### [place] [address] [place] Eosinophils/100 WBC (Bld) 1.9 % Normal . [facility] Comment on above: Performed By: #### P AB, CMP, CBC #### [address] Erythrocyte distribution width (RBC) [Ratio] 13.2 % Normal 12.0-14.8 [facility] Comment on above: Performed By: #### P AB, CMP, CBC #### [address] Hematocrit (Bld) [Volume fraction] 28.2 % Low 38.8-50.0 [facility] Comment on above: Performed By: #### P AB, CMP, CBC #### [address] Hemoglobin (Bld) [Mass/Vol] 9.5 g/dL Low 13.0-17.0 [facility] Comment on above: Performed By: #### P AB, CMP, CBC #### [address] Lymphocytes (Bld) [#/Vol] 1.3 10*3/uL Normal 1.00-4.8 [facility] Comment on above: Performed By: #### P AB, CMP, CBC #### [address] Lymphocytes/100 WBC (Bld) 17.6 % Normal . [facility] Comment on above: Performed By: #### P AB, CMP, CBC #### [address] MCH (RBC) [Entitic mass] 34.8 pg Normal 27.5-35.2 [facility] Comment on above: Performed By: #### P AB, CMP, CBC #### [address] MCV (RBC) [Entitic vol] 103.1 fL High 83.5-101 T [facility] Comment on above: Performed By: #### P AB, CMP, CBC #### [address] Mean Corpuscular HGB Conc 33.8 g/dL Normal 32.5-35.6 [facility] Comment on above: Performed By: #### P AB, CMP, CBC #### [address] Monocytes (Bld) [#/Vol] 1.0 10*3/uL High 0.0-0.8 [facility] Comment on above: Performed By: #### P AB, CMP, CBC #### [address] Monocytes/100 WBC (Bld) 12.8 % Normal . T [facility] Comment on above: Performed By: #### P AB, CMP, CBC #### [address] Neutrophils (Bld) [#/Vol] 5.1 10*3/uL Normal 1.8-7.7 [facility] Comment on above: Performed By: #### P AB, CMP, CBC #### [address] Neutrophils/100 WBC (Bld) 67.3 % Normal . [facility] Comment on above: Performed By: #### P AB, CMP, CBC #### [address] NRBC% 0.0 /100{WBC} Normal 0-0.5 [facility] Comment on above: Performed By: #### P AB, CMP, CBC #### [address] Platelet mean volume (Bld) [Entitic vol] 8.6 fL Normal 6.6-10.1 [facility] Comment on above: Performed By: #### P AB, CMP, CBC #### [address] Platelets (Bld) [#/Vol] 201 10*3/uL Normal 150-450 [facility] Comment on above: Performed By: #### P AB, CMP, CBC #### [address] RBC (Bld) [#/Vol] 2.73 10*6/uL Low 3.90-5.60 [facility] Comment on above: Performed By: #### P AB, CMP, CBC #### [address] WBC (Bld) [#/Vol] 7.7 10*3/uL Normal 4.1-10.5 [facility] Comment on above: Performed By: #### P AB, CMP, CBC #### [facility] [address] Glucose Poct Glucometerson 0 03-19-2024 Glucose [Mass/Vol] 231 mg/dL Normal [facility] Comment on above: Result Comment: [facility] Glucose Reference Range is dependent on time and content of last meal. Glucose of more than 200 mg/dL in a nonstressed, ambulatory subject supports the diagnosis of Diabetes Mellitus. PERFORMED BY: [place] [address] PATHOLOGIST TANKERMAN SHELBIE ALMONTE M.D. Performed By: #### G LULS #### Point of Care testing , Glucose [Mass/Vol] 123 mg/dL Normal [facility] Comment on above: Result Comment: [facility] Glucose Reference Range is dependent on time and content of last meal. Glucose of more than 200 mg/dL in a nonstressed, ambulatory subject supports the diagnosis of Diabetes Mellitus. PERFORMED BY: [place] [address] PATHOLOGIST TANKERMAN SHELBIE ALMONTE M.D. Performed By: #### G LULS #### Point of Care testing , Glucose [Mass/Vol] 139 mg/dL Normal [facility] Comment on above: Result Comment: [facility] Glucose Reference Range is dependent on time and content of last meal. Glucose of more than 200 mg/dL in a nonstressed, ambulatory subject supports the diagnosis of Diabetes Mellitus. PERFORMED BY: [place] [address] PATHOLOGIST TANKERMAN SHELBIE ALMONTE M.D. Performed By: #### G LULS #### Point of Care testing , Glucose [Mass/Vol] 116 mg/dL Normal [facility] Comment on above: Result Comment: [facility] Glucose Reference Range is dependent on time and content of last meal. Glucose of more than 200 mg/dL in a nonstressed, ambulatory subject supports the diagnosis of Diabetes Mellitus. PERFORMED BY: [place] [address] PATHOLOGIST TANKERMAN SHELBIE ALMONTE M.D. Performed By: #### G LULS #### Point of Care testing , Bacteria [Presence] in Urine by AutomatedOrdered By: Albert Beny on 03-18-2024 Bacteria Auto Ql (U) 4+ [HPF] High None Seen [facility] Bilirubin Test strip Ql (U)O rdered By: Albert Swan on 03-18-2024 Bilirubin Ql (U) Negative Negative [facility] Color of Urine by AutoOrdere d By: Albert Swan on 03-18-2024 Color (U) Yellow Normal Yellow [facility] Comment on above: Order Comment: Name Collection Type:: Clean-Voided Midstream Performed By: #### P AB, CMP, CBC #### [facility] [address] [place] [address] [place] Dipstick and Microscopicon 0 03-18-2024 Bacteria,Urine 4+ High None Seen [facility] Comment on above: Order Comment: Name Collection Type:: Clean-Voided Midstream Performed By: #### P AB, CMP, CBC #### [facility] [address] [place] [address] [place] Bilirubin,Urine Negative Normal Negative [facility] Comment on above: Order Comment: Name Collection Type:: Clean-Voided Midstream Performed By: #### P AB, CMP, CBC #### [facility] [address] [place] [id number] [place] Glucose Ql (U) Normal Normal Normal [facility] Comment on above: Order Comment: Name Collection Type:: Clean-Voided Midstream Performed By: #### P AB, CMP, CBC #### [facility] [address] [place], [place] [id number] [place] Hyaline Casts,Urine 9-19 High 0-8 [facility] Comment on above: Order Comment: Name Collection Type:: Clean-Voided Midstream Result Comment: PERF ORMED BY: [place] [address] PATHOLOGIST TANKERMAN SHELBIE ALMONTE M.D. Performed By: #### P AB, CMP, CBC #### [place] [address] [place] Nitrite,Urine Negative Normal Negative [facility] Comment on above: Order Comment: Name Collection Type:: Clean-Voided Midstream Performed By: #### P AB, CMP, CBC #### [address] Occult Blood,Urine 1+ High Negative [facility] Comment on above: Order Comment: Name Collection Type:: Clean-Voided Midstream Result Comment: PERF ORMED BY: [place] [address] PATHOLOGIST TANKERMAN SHELBIE ALMONTE M.D. Performed By: #### P AB, CMP, CBC #### [address] RBC,Urine 5-9 High 0-4 [facility] Comment on above: Order Comment: Name Collection Type:: Clean-Voided Midstream Performed By: #### P AB, CMP, CBC #### [address] Specificy [place],Urine 1.018 Normal 1.00 1-1.03 0 [facility] Comment on above: Order Comment: Name Collection Type:: Clean-Voided Midstream Performed By: #### P AB, CMP, CBC #### [address] Squamous Epithelial Cell,Urine 1-2 Normal 0-2 [facility] Comment on above: Order Comment: Name Collection Type:: Clean-Voided Midstream Performed By: #### P AB, CMP, CBC #### [address] Triple Phosphate Crystal,Urine Rare Normal [facility] Comment on above: Order Comment: Name Collection Type:: Clean-Voided Midstream Performed By: #### P AB, CMP, CBC #### [address] Urobilinogen,Urine Normal Normal Normal [facility] Comment on above: Order Comment: Name Collection Type:: Clean-Voided Midstream Performed By: #### P AB, CMP, CBC #### [address] WBC CLUMP, Urine Many High None Seen [facility] Comment on above: Order Comment: Name Collection Type:: Clean-Voided Midstream Performed By: #### P AB, CMP, CBC #### [facility] [address] WBC,Urine Innumerable High 0-4 [facility] Comment on above: Order Comment: Name Collection Type:: Clean-Voided Midstream Performed By: #### P AB, CMP, CBC #### [address] Epithelial cells.squamous [# /area] in Urine sediment by Automated countOrdered By: Albert Swan on 03-18-2024 Epithelial cells.squamous Auto (Urine sed) [#/Area] 1-2 [HPF] 0-2 [facility] Erythrocytes [#/area] in Uri ne sediment by Automated countOrdered By: Albert Swan on 03-18-2024 RBC Auto (Urine sed) [#/Area] 5-9 [HPF] High 0-4 [facility] Glucose Poct Glucometerson 0 03-18-2024 Commemt1 Glu2: Cleaned Meter Normal [facility] Comment on above: Result Comment: PERF ORMED BY: [place] [address] PATHOLOGIST TANKERMAN SHELBIE ALMONTE M.D. Performed By: #### G LULS #### Point of Care testing , Glucose [Mass/Vol] 199 mg/dL Normal [facility] Comment on above: Result Comment: [facility] Glucose Reference Range is dependent on time and content of last meal. Glucose of more than 200 mg/dL in a nonstressed, ambulatory subject supports the diagnosis of Diabetes Mellitus. Performed By: #### G LULS #### Point of Care testing , Glucose [Mass/Vol] 164 mg/dL Normal [facility] Comment on above: Result Comment: [facility] Glucose Reference Range is dependent on time and content of last meal. Glucose of more than 200 mg/dL in a nonstressed, ambulatory subject supports the diagnosis of Diabetes Mellitus. PERFORMED BY: [place] [id number] PATHOLOGIST TANKERMAN SHELBIE ALMONTE M.D. Performed By: #### G LULS #### Point of Care testing , Glucose [Mass/Vol] 171 mg/dL Normal [facility] Comment on above: Result Comment: [facility] Glucose Reference Range is dependent on time and content of last meal. Glucose of more than 200 mg/dL in a nonstressed, ambulatory subject supports the diagnosis of Diabetes Mellitus. PERFORMED BY: [place] [address] PATHOLOGIST TANKERMAN SHELBIE ALMONTE M.D. Performed By: #### P AB, CMP, CBC #### [address] Glucose [Mass/Vol] 142 mg/dL Normal [facility] Comment on above: Result Comment: [facility] Glucose Reference Range is dependent on time and content of last meal. Glucose of more than 200 mg/dL in a nonstressed, ambulatory subject supports the diagnosis of Diabetes Mellitus. PERFORMED BY: [place] [id number] PATHOLOGIST TANKERMAN SHELBIE ALMONTE M.D. Performed By: #### P AB, CMP, CBC #### [address] Glucose [Mass/volume] in Uri ne by Test stripOrdered By: Albert Swan on 03-18-2024 Glucose Test strip (U) [Mass/Vol] Normal mg/dL Normal [facility] Hemoglobin Test strip Ql (U) Ordered By: Albert Swan on 03-18-2024 Hemoglobin Ql (U) 1+ High Negative [facility] Hyaline casts [#/area] in Ur ine sediment by Automated countOrdered By: Albert Swan on 03-18-2024 Hyaline casts Auto (Urine sed) [#/Area] 9-19 [LPF] High 0-8 [facility] Ketones [Presence] in Urine by Test stripOrdered By: Albert Swan on 03-18-2024 Ketones Ql (U) Negative Normal Negative [facility] Comment on above: Order Comment: Name Collection Type:: Clean-Voided Midstream Performed By: #### P AB, CMP, CBC #### [facility] [address] [place] [address] [place] Leukocyte clumps [Presence] in Urine by AutomatedOrdered By: Albert Swan on 03-18-2024 Leukocyte clumps Auto Ql (U) Many [LPF] High None Seen [facility] Leukocyte esterase [Presence ] in Urine by Test stripOrdered By: Albert Swan on 03-18-2024 Leukocyte esterase Test strip Ql (U) 4+ High Negative [facility] Comment on above: Order Comment: Name Collection Type:: Clean-Voided Midstream Performed By: #### P AB, CMP, CBC #### [facility] [address] [place] [address] [place] Leukocytes [#/area] in Urine sediment by Automated countOrdered By: Albert Swan on 03-18-2024 WBC Auto (Urine sed) [#/Area] Innumerable [HPF] High 0-4 [facility] Nitrite Test strip Ql (U)Ord ered By: Albert Swan on 03-18-2024 Nitrite Ql (U) Negative Negative [facility] Protein [Mass/volume] in Uri ne by Test stripOrdered By: Albert Swan on 03-18-2024 Protein (U) [Mass/Vol] 30 mg/dL High Negative [facility] Comment on above: Order Comment: Name Collection Type:: Clean-Voided Midstream Performed By: #### P AB, CMP, CBC #### [facility] [address] [place] [address] [place] Specific gravity Test strip (U) [Rel density]Ordered By: Albert Swan on 03-18-2024 Specific gravity (U) [Rel density] 1.018 1.001-1.03 0 [facility] Triple phosphate crystals [P resence] in Urine sediment by Computer assisted methodOrdered By: Albert Swan on 03-18-2024 Triple phosphate crystals [Presence] in Urine sediment by Computer assisted method Rare [HPF] [facility] Urine Cultureon 03-18-2024 Bacteria identified Cx Nom (U) ORGANISM: Proteus mirabilis (O:PROMIR) [place] Count >100,000 Aerobic BENJAMIN Charge (NMIC56) SUSCEPTIBILITY [...] RESISTANT TO ALL B-LACTAM DRUGS. PERFORMED BY: [place] [address] PATHOLOGIST TANKERMAN SHELBIE ALMONTE M.D. Normal [facility] Comment on above: Performed By: #### P AB, CMP, CBC #### [address] Urine appearanceOrdered By: Albert Swan on 03-18-2024 Appearance (U) Cloudy Critically abnormal Clear [facility] Comment on above: Order Comment: Name Collection Type:: Clean-Voided Midstream Performed By: #### P AB, CMP, CBC #### [facility] [address] Urine culture routineOrdered By: Albert Swan on 03-18-2024 Bacteria identified Cx Nom (U) Proteus mirabilis Abnormal [facility] Urobilinogen Test strip (U) [Mass/Vol]Ordered By: Albert Swan on 03-18-2024 Urobilinogen (U) [Mass/Vol] Normal mg/dL Normal [facility] pH of Urine by Test stripOrd ered By: Albert Swan on 03-18-2024 pH (U) 7.5 [pH] Normal 5.0-9.0 [facility] Comment on above: Order Comment: Name Collection Type:: Clean-Voided Midstream Performed By: #### P AB, CMP, CBC #### [facility] [address] [place] [address] Alanine aminotransferase [En zymatic activity/volume] in Serum or PlasmaOrdered By: Albert Swan on 03-17-2024 ALT [Catalytic activity/Vol] 35 U/L Normal 7-52 [facility] Comment on above: Performed By: #### P AB, CMP, CBC #### [facility] [address] [place] [address] [place] Albumin [Mass/volume] in Ser um or Plasma by Bromocresol green (BCG) dye binding methoOrdered By: Albert Swan on 03-17-2024 Albumin BCG dye [Mass/Vol] 3.3 g/dL Low 3.5-5.7 [facility] Alkaline phosphatase [Enzyma tic activity/volume] in Serum or PlasmaOrdered By: Albert Swan on 03-17-2024 ALP [Catalytic activity/Vol] 76 U/L Normal 34-104 [facility] Comment on above: Performed By: #### P AB, CMP, CBC #### [facility] [address] [place] [address] [place] Aspartate aminotransferase [ Enzymatic activity/volume] in Serum or PlasmaOrdered By: Albert Swan on 03-17-2024 AST [Catalytic activity/Vol] 70 U/L High 13-39 [facility] Comment on above: Performed By: #### P AB, CMP, CBC #### [facility] [address] Bilirubin.total [Mass/volume ] in Serum or PlasmaOrdered By: Albert Sawn on 03-17-2024 Bilirubin [Mass/Vol] 0.5 mg/dL Normal 0.3-1.0 [facility] Comment on above: Performed By: #### P AB, CMP, CBC #### [facility] [address] COVID-19 FRon 03-17-2024 SARS-CoV-2 (COVID-19) RNA BENITO+probe Ql (Unsp spec) Positive Critically abnormal Negative [facility] Comment on above: Order Comment: Healt hcare Worker?: N Result Comment: Positive results will only be called to Providers for Inpatients Results called at 1306 on 03/17/24 Testing for SARS-CoV-2 by RT-PCR This test was developed and its performance characteristics determined by [employer] and validated at the [facility]. This test has not been FDA [...] is terminated or revoked sooner. PERFORMED BY: [place] [address] PATHOLOGIST TANKERMAN SHELBIE ALMNOTE M.D. Performed By: #### G LULS #### Point of Care testing , Complete Blood Count Auto Di ffon 03-17-2024 Basophils (Bld) [#/Vol] 0.0 10*3/uL Normal 0.0-0.2 [facility] Comment on above: Result Comment: PERF ORMED BY: [place] [address] PATHOLOGIST TANKERMAN SHELBIE ALMONTE M.D. Performed By: #### P AB, CMP, CBC #### [address] Basophils/100 WBC (Bld) 0.3 % Normal . [facility] Comment on above: Performed By: #### P AB, CMP, CBC #### [place] [address] [place] Eosinophils (Bld) [#/Vol] 0.2 10*3/uL Normal 0.0-0.45 [facility] Comment on above: Performed By: #### P AB, CMP, CBC #### [place] [address] [place] Eosinophils/100 WBC (Bld) 3.3 % Normal . [facility] Comment on above: Performed By: #### P AB, CMP, CBC #### [address] Erythrocyte distribution width (RBC) [Ratio] 13.0 % Normal 12.0-14.8 [facility] Comment on above: Performed By: #### P AB, CMP, CBC #### [address] Hematocrit (Bld) [Volume fraction] 28.5 % Low 38.8-50.0 [facility] Comment on above: Performed By: #### P AB, CMP, CBC #### [address] Hemoglobin (Bld) [Mass/Vol] 9.8 g/dL Low 13.0-17.0 [facility] Comment on above: Performed By: #### P AB, CMP, CBC #### [place] [address] [place] Lymphocytes (Bld) [#/Vol] 1.8 10*3/uL Normal 1.00-4.8 [facility] Comment on above: Performed By: #### P AB, CMP, CBC #### [address] Lymphocytes/100 WBC (Bld) 24.9 % Normal . [facility] Comment on above: Performed By: #### P AB, CMP, CBC #### [address] MCH (RBC) [Entitic mass] 35.6 pg High 27.5-35.2 [facility] Comment on above: Performed By: #### P AB, CMP, CBC #### [address] MCV (RBC) [Entitic vol] 104.1 fL High 83.5-101 [facility] Comment on above: Performed By: #### P AB, CMP, CBC #### [address] Mean Corpuscular HGB Conc 34.2 g/dL Normal 32.5-35.6 [facility] Comment on above: Performed By: #### P AB, CMP, CBC #### [address] Monocytes (Bld) [#/Vol] 0.9 10*3/uL High 0.0-0.8 [facility] Comment on above: Performed By: #### P AB, CMP, CBC #### [address] Monocytes/100 WBC (Bld) 13.0 % Normal . [facility] Comment on above: Performed By: #### P AB, CMP, CBC #### [address] Neutrophils (Bld) [#/Vol] 4.1 10*3/uL Normal 1.8-7.7 [facility] Comment on above: Performed By: #### P AB, CMP, CBC #### [place] [id number] [place] Neutrophils/100 WBC (Bld) 58.5 % Normal . [facility] Comment on above: Performed By: #### P AB, CMP, CBC #### [address] NRBC% 0.1 /100{WBC} Normal 0-0.5 [facility] Comment on above: Performed By: #### P AB, CMP, CBC #### [address] Platelet mean volume (Bld) [Entitic vol] 8.5 fL Normal 6.6-10.1 [facility] Comment on above: Performed By: #### P AB, CMP, CBC #### [address] Platelets (Bld) [#/Vol] 189 10*3/uL Normal 150-450 [facility] Comment on above: Performed By: #### P AB, CMP, CBC #### [address] RBC (Bld) [#/Vol] 2.74 10*6/uL Low 3.90-5.60 [facility] Comment on above: Performed By: #### P AB, CMP, CBC #### [address] WBC (Bld) [#/Vol] 7.0 10*3/uL Normal 4.1-10.5 [facility] Comment on above: Performed By: #### P AB, CMP, CBC #### [address] Comprehensive Metabolic Pane lora 03-17-2024 Albumin [Mass/Vol] 3.3 g/dL Low 3.5-5.7 [facility] Comment on above: Performed By: #### P AB, CMP, CBC #### [address] Anion gap [Moles/Vol] 10.4 mmol/L Normal 6.0-15.0 [facility] Comment on above: Performed By: #### P AB, CMP, CBC #### [facility] [address] [place] [address] [place] Calcium [Mass/Vol] 8.8 mg/dL Normal 8.6-10.3 [facility] Comment on above: Performed By: #### P AB, CMP, CBC #### [facility] [address] [place] [address] [place] Chloride [Moles/Vol] 100 mmol/L Normal 98-107 [facility] Comment on above: Performed By: #### P AB, CMP, CBC #### [facility] [address] [place] [address] [place] CO2 [Moles/Vol] 29.9 mmol/L Normal 21.0-31.0 [facility] Comment on above: Performed By: #### P AB, CMP, CBC #### [place] [address] [place] Creatinine [Mass/Vol] 1.20 mg/dL Normal 0.70-1.30 [facility] Comment on above: Performed By: #### P AB, CMP, CBC #### [place] [address] [place] Creatinine Clr Calc Pharmacy 59.79 Normal [facility] Comment on above: Performed By: #### P AB, CMP, CBC #### [place] [address] [place] GFR/1.73 sq M.predicted MDRD (S/P/Bld) [Vol rate/Area] mL/min/{1.73_m2} Normal [facility] Comment on above: Performed By: #### P AB, CMP, CBC #### [place] [address] [place] Glucose [Mass/Vol] 122 mg/dL High 70-100 [facility] Comment on above: Result Comment: [facility] Glucose Reference Range is dependent on time and content of last meal. Glucose of more than 200 mg/dL in a nonstressed, ambulatory subject supports the diagnosis of Diabetes Mellitus. ADA recommended reference range Performed By: #### P AB, CMP, CBC #### [address] [place] [address] [place] Potassium [Moles/Vol] 4.3 mmol/L Normal 3.5-5.1 [facility] Comment on above: Performed By: #### P AB, CMP, CBC #### [facility] [address] Sodium [Moles/Vol] 136 mmol/L Normal 136-145 [facility] Comment on above: Performed By: #### P AB, CMP, CBC #### [facility] [address] Urea nitrogen [Mass/Vol] 18 mg/dL Normal 7-25 [facility] Comment on above: Performed By: #### P AB, CMP, CBC #### [facility] [address] Glucose Poct Glucometerson 0 03-17-2024 Glucose [Mass/Vol] 178 mg/dL Normal [facility] Comment on above: Result Comment: [facility] Glucose Reference Range is dependent on time and content of last meal. Glucose of more than 200 mg/dL in a nonstressed, ambulatory subject supports the diagnosis of Diabetes Mellitus. PERFORMED BY: [place] [address] PATHOLOGIST TANKERMAN SHELBIE ALMONTE M.D. Performed By: #### G LULS #### Point of Care testing , Glucose [Mass/Vol] 126 mg/dL Normal [facility] Comment on above: Result Comment: [facility] Glucose Reference Range is dependent on time and content of last meal. Glucose of more than 200 mg/dL in a nonstressed, ambulatory subject supports the diagnosis of Diabetes Mellitus. PERFORMED BY: [place] [address] PATHOLOGIST TANKERMAN SHELBIE ALMONTE M.D. Performed By: #### G LULS #### Point of Care testing , Glucose [Mass/Vol] 166 mg/dL Normal [facility] Comment on above: Result Comment: [facility] Glucose Reference Range is dependent on time and content of last meal. Glucose of more than 200 mg/dL in a nonstressed, ambulatory subject supports the diagnosis of Diabetes Mellitus. PERFORMED BY: [place] [id number] PATHOLOGIST TANKERMAN SHELBIE ALMONTE M.D. Performed By: #### G LULS #### Point of Care testing , Glucose [Mass/Vol] 147 mg/dL Normal [facility] Comment on above: Result Comment: [facility] Glucose Reference Range is dependent on time and content of last meal. Glucose of more than 200 mg/dL in a nonstressed, ambulatory subject supports the diagnosis of Diabetes Mellitus. PERFORMED BY: [place] [address] PATHOLOGIST TANKERMAN SHELBIE ALMONTE M.D. Performed By: #### G SUPA #### Point of Care testing , Prealbumin [Mass/volume] in Serum or PlasmaOrdered By: Albert Swan on 03-17-2024 Prealbumin [Mass/Vol] 17.4 mg/dL Normal 17.0-34.0 [facility] Comment on above: Result Comment: PERF ORMED BY: [place] [address] PATHOLOGIST TANKERMAN SHELBIE ALMONTE M.D. Performed By: #### P AB, CMP, CBC #### [facility] [address] [place] [address] Protein [Mass/volume] in Ser um or PlasmaOrdered By: Albert Swan on 03-17-2024 Protein [Mass/Vol] 6.3 g/dL Low 6.4-8.9 [facility] Comment on above: Performed By: #### P AB, CMP, CBC #### [facility] [address] Serum globulin measurement b y calculation (mass/volume)Ordered By: Albert Swan on 03-17-2024 Globulin (S) [Mass/Vol] 3.0 g/dL Normal [facility] Comment on above: Performed By: #### P AB, CMP, CBC #### [facility] [address] [place] [address] Serum or plasma albumin/glob ulin mass ratioOrdered By: Albert Swan on 03-17-2024 Albumin/Globulin [Mass ratio] 1.1 {ratio} Normal [facility] Comment on above: Performed By: #### P AB, CMP, CBC #### [facility] [address] [place] [id number] [facility] XR chest 1V portableon 03-17 XR chest 1V portable [facility] [place] [address] [place] [address] XRay Report Signed Patient: Queta Quiroga MR#: [id number] : 1945 Acct:[id number] Age/Sex: 78 / M ADM Date: 03/16/24 Loc: Room: [address] [place] [address] Type: ADM IN Attending Dr: Albert Swan [...] Jeff Nguyen M.D.03/17/2024 7:45 PM Dictation Location: [place] [address] Transcribed By: [facility] 03/17/241944 Dictated By: Jeff Nguyen DO 03/17/241943 Signed By: 03/17/241944 Normal [facility] Glucose Poct Glucometerson 0 03-16-2024 Glucose [Mass/Vol] 140 mg/dL Normal [facility] Comment on above: Result Comment: [facility] Glucose Reference Range is dependent on time and content of last meal. Glucose of more than 200 mg/dL in a nonstressed, ambulatory subject supports the diagnosis of Diabetes Mellitus. PERFORMED BY: [place] [address] [place] [address] PATHOLOGIST TANKERMAN SHELBIE ALMONTE M.D. Performed By: #### G LULS #### Point of Care testing , Glucose [Mass/Vol] 158 mg/dL Normal [facility] Comment on above: Result Comment: [facility] Glucose Reference Range is dependent on time and content of last meal. Glucose of more than 200 mg/dL in a nonstressed, ambulatory subject supports the diagnosis of Diabetes Mellitus. PERFORMED BY: [address] [place] [id number] PATHOLOGIST TANKERMAN SHELBIE ALMONTE M.D. Performed By: #### G LULS #### Point of Care testing , A1C with Estimated Average Shelly rodriguez 02-25-2024 Glucose [Mass/Vol] 120 mg/dL Normal [facility] Comment on above: Result Comment: PERF ORMED BY: [address] [place] [id number] PATHOLOGIST TANKERMAN SHELBIE ALMONTE M.D. Performed By: #### G LULS #### Point of Care testing , Activated partial thrombopla stin time (aPTT) in platelet poor plasma by coagulation aOrdered By: Austin Monte on 02-25-2024 aPTT Coag (PPP) [Time] 31.4 s 25.1-36.5 [facility] Comment on above: A hematocrit value g reater than 55% may lead to inaccurate results in coagulation testing. Patients having hematocrit values >55% require a special collection tube for coagulation studies. Please contact the laboratory at [phone] for redraw instructions. Automated basophil %Ordered By: Austin Monte on 02-25-2024 Basophils/100 WBC (Bld) 0.3 % Normal . [facility] Comment on above: Performed By: #### G LULS #### Point of Care testing , Automated basophil countOrde red By: Austin Monte on 02-25-2024 Basophils (Bld) [#/Vol] 0.0 10*3/uL Normal 0.0-0.2 [facility] Comment on above: Result Comment: PERF ORMED BY: [facility] [place] [address] PATHOLOGIST TANKERMAN SHELBIE ALMONTE M.D. Performed By: #### G LULS #### Point of Care testing , Automated blood monocyte cou ntOrdered By: Austin Digmandieo on 02-25-2024 Monocytes (Bld) [#/Vol] 0.7 10*3/uL Normal 0.0-0.8 [facility] Comment on above: Performed By: #### G LULS #### Point of Care testing , Automated eosinophil %Ordere d By: Austin Diglio on 02-25-2024 Eosinophils/100 WBC (Bld) 2.5 % Normal . [facility] Comment on above: Performed By: #### G LULS #### Point of Care testing , Automated eosinophil countOr dered By: Austin Digmandieo on 02-25-2024 Eosinophils (Bld) [#/Vol] 0.2 10*3/uL Normal 0.0-0.45 [facility] Comment on above: Performed By: #### G LULS #### Point of Care testing , Automated monocyte %Ordered By: Austin Digmandieo on 02-25-2024 Monocytes/100 WBC (Bld) 10.0 % Normal . [facility] Comment on above: Performed By: #### G LULS #### Point of Care testing , Automated neutrophil %Ordere d By: Austin Diglio on 02-25-2024 Neutrophils/100 WBC (Bld) 58.8 % Normal . [facility] Comment on above: Performed By: #### G LULS #### Point of Care testing , Basic Metabolic Panelon 02-02 GFR/1.73 sq M.predicted MDRD (S/P/Bld) [Vol rate/Area] 51.890 mL/min/{1.73_m2} Normal [facility] Comment on above: Performed By: #### G LULS #### Point of Care testing , Calcium [Mass/volume] in Ser um or PlasmaOrdered By: Austin Diglio on 02-25-2024 Calcium [Mass/Vol] 8.9 mg/dL Normal 8.6-10.3 [facility] Comment on above: Result Comment: PERF ORMED BY: [place] [address] PATHOLOGIST TANKERMAN SHELBIE ALMONTE M.D. Performed By: #### G LULS #### Point of Care testing , Carbon dioxide, total [Moles /volume] in Serum or PlasmaOrdered By: Austin Carrenoo on 02-25-2024 CO2 [Moles/Vol] 29.2 mmol/L Normal 21.0-31.0 [facility] Comment on above: Performed By: #### G LULS #### Point of Care testing , Chloride [Moles/volume] in S bhavin or PlasmaOrdered By: Austin Diglio on 02-25-2024 Chloride [Moles/Vol] 105 mmol/L Normal 98-107 [facility] Comment on above: Performed By: #### G LULS #### Point of Care testing , Coagulation Profileon 2023 aPTT Coag (Bld) [Time] 31.4 s Normal 25.1-36.5 [facility] Comment on above: Result Comment: A he matocrit value greater than 55% may lead to inaccurate results in coagulation testing. Patients having hematocrit values >55% require a special collection tube for coagulation studies. Please contact the laboratory at [phone] for redraw instructions. PERFORMED BY: [facility] [address] [place] [address] PATHOLOGIST TANKERMAN SHELBIE ALMONTE M.D. Performed By: #### G LULS #### Point of Care testing , Complete Blood Count Auto Di ffon 02-25-2024 Mean Corpuscular HGB Conc 33.7 g/dL Normal 32.5-35.6 [facility] Comment on above: Performed By: #### G LULS #### Point of Care testing , NRBC% 0.1 /100{WBC} Normal 0-0.5 [facility] Comment on above: Performed By: #### G LULS #### Point of Care testing , Creatinine [Mass/volume] in Serum or PlasmaOrdered By: Austin Monte on 02-25-2024 Creatinine [Mass/Vol] 1.39 mg/dL High 0.70-1.30 [facility] Comment on above: Performed By: #### G LULS #### Point of Care testing , ECG 12 lead ECGon 02-25-2024 ECG 12 lead ECG [facility] [place] [address] Electrocardiograph Report Signed Patient: Queta Quiroga MR#: [id number] : 1945 Acct:[id number] Age/Sex: 78 / M ADM Date: 02/25/24 Loc: XD Room: Type: [facility] Attending Dr: Austin Monte PA-C Ordering [...] No significant change was found Confirmed by JOHANNA HARRISON [facility] HEALTH SERVICESCAROLINA Peres ([id number]) on 02/26/2024 8:41:47 AM Referred By: Electronically Signed By:CAROLINA MAGAÑA MD, FACC Transcribed By: MUS Signed By Yoshi Magaña MD 02/26/24 0841 Normal [facility] Erythrocyte distribution wid th [Ratio] by Automated countOrdered By: Austin Monte on 02-25-2024 Erythrocyte distribution width (RBC) [Ratio] 13.8 % Normal 12.0-14.8 [facility] Comment on above: Performed By: #### G LULS #### Point of Care testing , Erythrocytes [#/volume] in B lood by Automated countOrdered By: Austin Monte on 02-25-2024 RBC (Bld) [#/Vol] 3.39 10*6/uL Low 3.90-5.60 [facility] Comment on above: Performed By: #### G LULS #### Point of Care testing , Glucose [Mass/volume] in Ser um or PlasmaOrdered By: Austin Monte on 02-25-2024 Glucose [Mass/Vol] 119 mg/dL High 70-100 [facility] Comment on above: ADA recommended refe rence rangeRandom Glucose Reference Range is dependent on time and content of last meal. Glucose of more than 200 mg/dL in a nonstressed, ambulatory subject supports the diagnosis of Diabetes Mellitus. Result Comment: [facility] Glucose Reference Range is dependent on [...] from glycated hemoglobin (Bld) [Mass/Vol] 120 mg/dL [facility] Hematocrit [Volume Fraction] of Blood by Automated countOrdered By: Austin Monte on 02-25-2024 Hematocrit (Bld) [Volume fraction] 35.7 % Low 38.8-50.0 [facility] Comment on above: Performed By: #### G LULS #### Point of Care testing , Hemoglobin A1c percentageOrd ered By: Austin Monte on 02-25-2024 HbA1c (Bld) [Mass fraction] 5.8 % High 4.3-5.6 [facility] Comment on above: Increased risk for [...] Hemoglobin (Bld) [Mass/Vol] 12.0 g/dL Low 13.0-17.0 [facility] Comment on above: Performed By: #### G LUHOMERO #### Point of Care testing , INR in Platelet poor plasma by Coagulation assayOrdered By: Austin Monte on 02-25-2024 INR Coag (PPP) [Relative time] 1.0 {INR} Normal [facility] Comment on above: INR Therapeutic Rang [...] RBC Auto (Bld) [#/Vol] 6.9 10*3/uL 4.1-10.5 [facility] Leukocytes [#/volume] in Blo od by Automated countOrdered By: Austin Monte on 02-25-2024 WBC (Bld) [#/Vol] 6.9 10*3/uL Normal 4.1-10.5 [facility] Comment on above: Performed By: #### G LUHOMERO #### Point of Care testing , Lymphocytes [#/volume] in Bl ood by Automated countOrdered By: Austin Monte on 02-25-2024 Lymphocytes (Bld) [#/Vol] 2.0 10*3/uL Normal 1.00-4.8 [facility] Comment on above: Performed By: #### G LULS #### Point of Care testing , Lymphocytes/100 leukocytes i n Blood by Automated countOrdered By: Austin Monte on 02-25-2024 Lymphocytes/100 WBC (Bld) 28.4 % Normal . [facility] Comment on above: Performed By: #### G LULS #### Point of Care testing , MCH [Entitic mass] by Automa nadine countOrdered By: Austin Monte on 02-25-2024 MCH (RBC) [Entitic mass] 35.5 pg High 27.5-35.2 [facility] Comment on above: Performed By: #### G LULS #### Point of Care testing , MCHC Auto (RBC) [Mass/Vol]Or dered By: Austin Monte on 02-25-2024 MCHC (RBC) [Mass/Vol] 33.7 g/dL 32.5-35.6 [facility] MCV [Entitic volume] by Auto mated countOrdered By: Austin Monte on 02-25-2024 MCV (RBC) [Entitic vol] 105.4 fL High 83.5-101 [facility] Comment on above: Performed By: #### G LULS #### Point of Care testing , MRSA Cultureon 02-25-2024 MRSA Culture MRSA Culture Results No MRSA Isolated 2 Days PERFORMED BY: [address] [place] [address] PATHOLOGIST TANKERMAN SHELBIE ALMONTE M.D. Normal [facility] Comment on above: Performed By: #### G LULS #### Point of Care testing , Neutrophils [#/volume] in Bl ood by Automated countOrdered By: Austin Monte on 02-25-2024 Neutrophils (Bld) [#/Vol] 4.1 10*3/uL Normal 1.8-7.7 [facility] Comment on above: Performed By: #### G LULS #### Point of Care testing , No Panel InformationOrdered By: Austin Monte on 02-25-2024 Estimated GFR (CKD-EPI) 51.890 mL/Min [facility] Creatinine Clearance (Chem N/A [facility] Nucleated erythrocytes [Pres ence] in Blood by Automated countOrdered By: Austin Monte on 02-25-2024 Nucleated RBC Auto Ql (Bld) 0.1 /100{WBC} 0-0.5 [facility] Platelet mean volume [Entiti c volume] in Blood by Automated countOrdered By: Austin Monte on 02-25-2024 Platelet mean volume (Bld) [Entitic vol] 9.0 fL Normal 6.6-10.1 [facility] Comment on above: Performed By: #### G LULS #### Point of Care testing , Platelets [#/volume] in Bloo d by Automated countOrdered By: Austin Monte on 02-25-2024 Platelets (Bld) [#/Vol] 150 10*3/uL Normal 150-450 [facility] Comment on above: Performed By: #### G LULS #### Point of Care testing , Potassium [Moles/volume] in Serum or PlasmaOrdered By: Austin Monte on 02-25-2024 Potassium [Moles/Vol] 4.6 mmol/L Normal 3.5-5.1 [facility] Comment on above: Performed By: #### G LULS #### Point of Care testing , Prothrombin time (PT)Ordered By: Austin Monte on 02-25-2024 PT Coag (PPP) [Time] 11.4 s Normal 9.0-12.9 [facility] Comment on above: A hematocrit value g reater than 55% may lead to inaccurate results in coagulation testing. Patients having hematocrit values >55% require a special collection tube for coagulation studies. Please contact the laboratory at [phone] for redraw instructions. Result Comment: A he matocrit value greater than 55% may lead to inaccurate results in coagulation testing. Patients having hematocrit values >55% require a special collection tube for coagulation studies. Please contact the laboratory at [phone] for redraw instructions. Performed By: #### G LULS #### Point of Care testing , Serum or plasma anion gap de terminationOrdered By: Austin Monte on 02-25-2024 Anion gap [Moles/Vol] 11.4 mmol/L Normal 6.0-15.0 [facility] Comment on above: Performed By: #### G LULS #### Point of Care testing , Sodium [Moles/volume] in Ser um or PlasmaOrdered By: Austin Monte on 02-25-2024 Sodium [Moles/Vol] 141 mmol/L Normal 136-145 [facility] Comment on above: Performed By: #### G LULS #### Point of Care testing , Urea nitrogen [Mass/volume] in Serum or PlasmaOrdered By: Austin Monte on 02-25-2024 Urea nitrogen [Mass/Vol] 21 mg/dL Normal 7-25 [facility] Comment on above: Performed By: #### G LULS #### Point of Care testing , Wound methicillin resistant Staphylococcus aureus (MRSA) cultureOrdered By: Austin Monte on 02-25-2024 MRSA isol Org specific cx Ql (Unsp spec) [facility] XR chest 2V*on 02-25-2024 XR chest 2V* [facility] [place] [address] XRay Report Signed Patient: Queta Quiroga MR#: [id number] : 1945 Acct:[id number] Age/Sex: 78 / M ADM Date: 02/25/24 Loc: XD Room: Type: [facility] Attending Dr: Austin Monte PA-C Copies to: [...] Jeff Nguyen M.D.02/25/2024 12:18 PM Dictation Location: [place] [address] Transcribed By: [facility] 02/25/24 1218 Dictated By: Jeff Nguyen DO 02/25/24 1211 Signed By: 02/25/24 1218 Normal [facility] MR lumbar spine wo conon MR lumbar spine wo con [facility] [place] [address] MRI Report Signed Patient: Queta Quiroga MR#: [id number] : 1945 Acct:[id number] Age/Sex: 78 / M ADM Date: 12/28/23 Loc: MR Room: Type: [facility] Attending Dr: Jed Salgado MD Copies to: [...] Toby Dodge M.D.12/28/2023 3:58 PM Dictation Location: [place] [address] Transcribed By: [facility] 12/28/23 1558 Dictated By: Toby Dodge II, MD 12/28/23 155 Signed By: 12/28/23 1558 Normal [facility] CT lumbar spine wo con CT lumbar spine wo [facility] [place] [address] CT Scan Report Signed Patient: Queta Quiroga MR#: [id number] : 1945 Acct:[id number] Age/Sex: 78 / M ADM Date: 11/14/23 Loc: CT Room: Type: [facility] Attending Dr: Kaitlynn Liz MD Copies to: [...] Toby Dodge M.D.11/14/2023 4:16 PM Dictation Location: [place] [address] Transcribed By: [facility] 11/14/23 1616 Dictated By: Toby Dodge II, MD 11/14/23 1606 Signed By: 11/14/23 1616 Normal [facility] Covid-19 PCR (CVDTBH)on 08-03 SARS-CoV-2 (COVID-19) RNA BENITO+probe Ql (Unsp spec) Not detected Normal NOT DETECTED [facility] Comment on above: Result Comment: This test is not yet approved or cleared by the [place] FDA. When there are no FDA-approved or cleared tests available, and other criteria are met, FDA can make tests available under an emergency access mechanism called an Emergency Use Authorization (EUA). The EUA for this test is supported by the [place] of Health and Human Service's (HHS's) declaration [...] SARS-CoV-2. Performed By: #### C VDTB #### [facility] [address] [place] [address] Dr. Leeann V[place] INFLUENZA A AND B [facility] 08-16 [facility] SEE BELOW Normal Comment on above: Result Comment: Nega tive for Flu A protein angiten. Infection due to Flu A cannot be ruled out. Flu A angiten in the sample may be below the detection limit of the test. Performed By: #### I NFLUAB #### [facility] [address] [place] [address] Dr. Leeann Vail [facility] SEE BELOW Normal Comment on above: Result Comment: Nega tive for Flu B protein antigen. Infection due to Flu B cannot be ruled out. Flu B antigen in the sample may be below the detection limit of the test. Performed By: #### I NFLUAB #### [facility] [address] [place] [address] Dr. Leeann [place] INFLUENZA A AG Negative Normal NEGATIVE SEE COMMENT Comment on above: Performed By: #### I NFLUAB #### [facility] [address] [place] [address] Dr. Leeann V[place] INFLUENZA B AG Negative Normal NEGATIVE SEE COMMENT Comment on above: Performed By: #### I NFLUAB #### [facility] [address] [place] [address] Dr. Leeann Vail INTERNAL CONTROLS Within Normal Limits Normal Wi thin Normal Limits [facility] Comment on above: Performed By: #### I NFLUAB #### [facility] [address] [place] [address] Dr. Leeann V[place] Lab Reportson 04-02-2020 Lab Reports [id number]:127 [facility] Consent for Procedure/Surger yon 03-24-2020 Consent for Procedure/Surgery [id number]:127 [facility] Ambulatory Clinical Summaryo n 03-16-2020 Ambulatory Clinical Summary {[id number]}CD: [id number] [facility] Physician Referralon 020 Physician Referral [id number]:127 [facility] Vital Signs Date Time Vital Sign Value Performing Clinician Julianai neisha 03-31-2024 10:08-0400 Body temperature 98 [degF] MD Kaitlynn Liz Work Phone: [facility] 03-31-2024 10:08-0400 Diastolic blood pressure 84 mm[Hg] MD Kaitlynn Liz Work Phone: [facility] 03-31-2024 10:08-0400 Heart rate 78 /min MD Kaitlynn Liz Work Phone: [facility] 03-31-2024 10:08-0400 Respiratory rate 20 /min MD Kaitlynn Liz Work Phone: [facility] 03-31-2024 10:08-0400 SaO2% (BldA) [Mass fraction] 96 % MD Kaitlynn Liz Work Phone: [facility] 03-31-2024 10:08-0400 Systolic blood pressure 134 mm[Hg] MD Kaitlynn Liz Work Phone: [facility] 03-30-2024 05:04-0400 Body weight 104.1 kg MD Kaitlynn Liz Work Phone: [facility] 03-24-2024 12:02-0400 Body height 177.8 cm MD Kaitlynn Liz Work Phone: [facility] Encounters Encounter Date Encounter Type Care Provider Facility Start: 05-26-2024 End: 05-26-2024 ambulatory TIA CARO Not Available Start: 03-24-2024 Non-patient / Non-visit MD Apolonia Liz Work Phone: [facility] Work Phone: Start: 03-17-2024 Non-patient / Non-visit MD Apolonia Liz Work Phone: [facility] Work Phone: Start: 03-16-2024 End: 03-31-2024 Evaluation and management of inpatient MD Kaitlynn Liz Work Phone: [facility] Work Phone: Start: 02-25-2024 End: 02-25-2024 Patient encounter procedure MD Kaitlynn Liz Work Phone: [facility]XRay [place] Work Phone: Start: 02-25-2024 End: 02-25-2024 ambulatory MD Kaitlynn Liz Work Phone: [facility] Work Phone: Start: 12-28-2023 End: 12-28-2023 Patient encounter procedure MD Kaitlynn Liz Work Phone: [facility]MRI [place] Work Phone: Start: 12-28-2023 End: 12-28-2023 ambulatory MD Kaitlynn Liz Work Phone: [facility] Work Phone: Start: 11-14-2023 End: 11-14-2023 Patient encounter procedure MD Kaitlynn Liz Work Phone: [facility]-CT Scan [place] Work Phone: Start: 11-14-2023 End: 11-14-2023 ambulatory MD Kaitlynn Liz Work Phone: [facility] Work Phone: Start: 08-16-2022 End: 08-16-2022 [...] MR lumbar spine wo con MD Kaitlynn Lzi Work Phone: Start: 11-14-2023 CT of lumbar spine w ithout contrast MD Kaitlynn Liz Work Phone: Plan of Treatment Date Care Activity Detail Author Start: 03-31-2024 [facility] Start: 03-16-2024 Hospital admission [facility] Start: 03-16-2024 Referral to clinical rn registry [facility] Start: 02-25-2024 MRSA Culture MRSA Culture [facility] Methicillin resistan t Staphylococcus aureus [Presence] in Unspecified specimen by Organism specific culture [facility] Patient Education Spinal Fusion (DC) Know your Meds [facility] Work Phone: Patient referral [facility] Work Phone: [facility] Payers Date Payer Category Payer Self-pay 1959 Medicare [id number] 1959 Unknown [id number] 1945 Unknown [id number] 1945 Unknown [id number] Medicare Medicare Outpatient [id number] Unknown [employer] C o [id number] Unknown [id number] Unknown [id number] Unknown [id number] Unknown [id number] Social History Date Type Detail Facility Tobacco smoking stat [facility] Unknown if ever smoked [facility] Work Phone: Start: 1945 Sex Assigned At Male [facility] Start: 03-17-2024 Tobacco smoking stat [facility] Ex-smoker (finding) [facility] End: 03-19-1987 History of tobacco use [facility] Work Phone: Goals Date Patient Goal Desired Activity /State Functional Status Date Assessment Result Facility 03-31-2024 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 [facility] Work Phone: Mental Status Date Assessment Result Facility 03-31-2024 Cognitive function Cognitive Sta tus Patient at [facility] Work Phone: Clinical Notes 03-18-2024 to 03-29-2024 Note Date & Type Note Facility 03-29-2024 Progress note Note Date/Time March 29, 2024 9:32am [facility] [address] [place] [id number] Physiatry(Rehab) Progress Note Signed Patient: Queta Quiroga MR#: [id number] 1178 : 1945 Acct:[id number] Age/Sex: 78 / M Adm Date: 4 Loc: 5T Room: [id number] Type: ADM IN Attending Dr: Albert Swan MD Copies to: ~ Date of Service: 03/29/2024 Subjective Subjective Narrative: Mr. Quiroga is a 78 year old male presenting [...] mg 03/16/24 13:09 Bisacodyl 10 Mg Supp.Rect LA 03/16/25 13:08 DAILY PRN Constipation Cyclobenzaprine HCl [...] 13:09 Docusate Enema 283 Mg/5 Ml Enema LA 03/16/25 13:08 DAILY PRN Constipation Enoxaparin Sodium [...] I spent 25 minutes for services, including ausv-ar-duuu encounter with the patient, discussion of the case, plan of care, and exam; and llzduyr-zm-xsbs activities, such as reviewing pertinent implementation consultant documentation, recent therapynotes, laboratory and radiology studies, and discussion of case with care team including physician, nursing, case consultant, and therapists. More than 50 % of time was spent on patient/family counseling or coordination ofcare. Documented By: Camron Carpenter MD 0930 Signed By: <Electronically signed by Camron Carpenter MD> 03/29/24 0932 [facility] Work Phone: 1([phone]) 627-735007-26-2024 Progress note Author Albert Swan [facility] March 28, 2024 12:15pm Note Date/Time March 28, 2024 11:5 4am [facility] [address] [place] [address] Physiatry(Rehab) Progress Note Signed Patient: Queta Quiroga MR#: [id number] 1178 : 1945 Acct:[id number] Age/Sex: 78 / M Adm Date: 4 Loc: Room: 8O2981-1 Type: ADM IN Attending Dr: Albert Swan MD Copies to: ~ Date of Service: 03/28/2024 Subjective Subjective Narrative: Mr. Quiroga is a 78 year old male presenting [...] mg 03/16/24 13:09 Bisacodyl 10 Mg Supp.Rect LA 03/16/25 13:08 DAILY PRN Constipation Cyclobenzaprine HCl [...] 13:09 Docusate Enema 283 Mg/5 Ml Enema LA 03/16/25 13:08 DAILY PRN Constipation Enoxaparin Sodium [...] Tablet. PO 03/17/25 08:59 40 mg DAILY MRAIELOS Administration Sennosides 2 tab 03/17/24 12:00 03/25/24 [...] I spent 25 minutes for services, including fbks-ra-gzpm encounter with the patient, discussion of the case, plan of care, and exam; and pciqwvr-bf-bxef activities, such as reviewing pertinent implementation consultant documentation, recent therapynotes, laboratory and radiology studies, and discussion of case with care team including physician, nursing, case consultant, and therapists. More than 50 % of time was spent on patient/family counseling or coordination ofcare. Documented By: Albert Swan MD 03/28/24 1154 Signed By: <Electronically signed by Albert Swan MD> 03/28/24 1215 [facility] Work Phone: 1([phone]) 582-641407-24-2024 Progress note Author Albert Swan [facility] March 26, 2024 12:58pm Note Date/Time March 26, 2024 11:5 3am [facility] [address] [place] [address] Physiatry(Rehab) Progress Note Signed Patient: Queta Quiroga MR#: [id number] 1178 : 1945 Acct:[id number] Age/Sex: 78 / M Adm Date: 4 Loc: Room: [address] [place] [address] Type: ADM IN Attending Dr: Albert Swan MD Copies to: ~ Date of Service: 03/26/2024 Subjective Subjective Narrative: Mr. Quiroga is a 78 year old male presenting [...] mg 03/16/24 13:09 Bisacodyl 10 Mg Supp.Rect LA 03/16/25 13:08 DAILY PRN Constipation Cyclobenzaprine HCl [...] 13:09 Docusate Enema 283 Mg/5 Ml Enema LA 03/16/25 13:08 DAILY PRN Constipation Enoxaparin Sodium [...] I spent 28 minutes for services, including cgej-fq-ttbh encounter with the patient, discussion of the case, plan of care, and exam; and cypsdvz-fq-upod activities, such as reviewing pertinent implementation consultant documentation, recent therapynotes, laboratory and radiology studies, and discussion of case with care team including physician, nursing, case consultant, and therapists. More than 50 % of time was spent on patient/family counseling or coordination ofcare. Documented By: Albert Swan MD 03/26/24 1144 Signed By: <Electronically signed by Albert Swan MD> 03/26/24 1251 [facility] Work Phone: 1([phone]) [phone] Progress note Author Albert Swan [facility] March 26, 2024 10:40am Note Date/Time March 26, 2024 10:3 5am [facility] [address] [place] [address] Physiatry(Rehab) Progress Note Signed Patient: Queta Quiroga MR#: [id number] 1178 : 1945 Acct:[id number] Age/Sex: 78 / M Adm Date: 4 Loc: 5T Room: 0O5182-6 Type: ADM IN Attending Dr: Albert Sawn MD Copies to: ~ Date of Service: 03/25/2024 Subjective Subjective Narrative: Mr. Quiroga is a 78 year old male presenting [...] Allergies and Active Meds: Allergies cephalexin [From [email or web address]] Adverse Reaction (Mild, Verified 03/18/24 18:59) Itching [...] mg 03/16/24 13:09 Bisacodyl 10 Mg Supp.Rect LA 03/16/25 13:08 DAILY PRN Constipation Cyclobenzaprine HCl 10 mg 03/16/24 13:07 03/20/24 20:15 Cyclobenzaprine 10 Mg Tablet PO 03/16/25 13:06 10 mg TID PRN Administration muscle spasm Diphenhydramine HCl 25 mg 03/18/24 18:43 03/20/24 20:15 Diphenhydramine 25 Mg Capsule PO 03/18/25 18:42 25 mg Q4H PRN Administration Itching Docusate Sodium 100 mg 03/16/24 13:09 07/23/24 07:44 Docusate 100 Mg Capsule PO 03/16/25 13:08 100 mg BID PRN Administration Constipation Docusate Sodium 283 mg 03/16/24 13:09 Docusate Enema 283 Mg/5 Ml Enema LA 03/16/25 13:08 DAILY PRN Constipation Enoxaparin Sodium [...] I spent 25 minutes for services, including avou-uj-sqiq encounter with the patient, discussion of the case, plan of care, and exam; and ztknnui-lw-vrph activities, such as reviewing pertinent implementation consultant documentation, recent therapynotes, laboratory and radiology studies, and discussion of case with care team including physician, nursing, case consultant, and therapists. More than 50 % of time was spent on patient/family counseling or coordination ofcare. Documented By: Albert Swan MD 03/26/24 1033 Signed By: <Electronically signed by Albert Swan MD> 03/26/24 1040 [facility] Work Phone: 1(565) 332-728007-24-2024 Progress note Author Clara De La Torre [facility] March 26, 2024 7:01am Note Date/Time March 25, 2024 4:38 pm [facility] [address] [place] [address] Hospitalist Progress Note Signed Patient: Queta Quiroga MR#: [id number] 1178 : 1945 Acct:[id number] Age/Sex: 78 / M Adm Date: 4 Loc: Room: 0A9005-8 Type: ADM IN Attending Dr: Albert Swan [...] mg 03/16/24 13:09 Bisacodyl 10 Mg Supp.Rect LA 03/16/25 13:08 DAILY PRN Constipation Cyclobenzaprine HCl [...] 13:09 Docusate Enema 283 Mg/5 Ml Enema LA 03/16/25 13:08 DAILY PRN Constipation Enoxaparin Sodium 40 mg 03/19/24 10:00 03/25/24 07:44 Enoxaparin 40 Mg/0.4 Ml Syringe SUBCUT 03/19/25 09:59 40 mg DAILY@1000 MARIELOS Administration Ferrous Sulfate 324 mg 03/20/24 09:00 03/24/24 08:28 Ferrous Sulfate 324 Mg Tablet. PO 03/20/25 [...] Signed By: <Electronically signed by RALPH King> 03/25/24 1817 <Electronically signed by Clara De La Torre MD> 03/26/24 0701 [facility] Work Phone: 1([phone]) 672-399007-22-2024 Progress note Author Albert Swan [facility] March 24, 2024 8:01pm Note Date/Time March 24, 2024 6:58 pm [facility] [address] [place] [address] Physiatry(Rehab) Progress Note Signed Patient: Queta Quiroga MR#: [id number] 1178 : 1945 Acct:[id number] Age/Sex: 78 / M Adm Date: 4 Loc: Room: [address] [place] [address] Type: ADM IN Attending Dr: Albert Swan MD Copies to: ~ Date of Service: 03/24/2024 Subjective Subjective Narrative: Mr. Quiroga is a 78 year old male presenting [...] mg 03/16/24 13:09 Bisacodyl 10 Mg Supp.Rect LA 03/16/25 13:08 DAILY PRN Constipation Cyclobenzaprine HCl [...] 13:09 Docusate Enema 283 Mg/5 Ml Enema LA 03/16/25 13:08 DAILY PRN Constipation Enoxaparin Sodium [...] S1 decompression and L2-L5 fusion by Dr. Wiess. * Continues to improve. * Ambulatory 280'. [...] I spent 26 minutes for services, including cxho-ly-dben encounter with the patient, discussion of the case, plan of care, and exam; and xbnhbat-sj-unmb activities, such as reviewing pertinent implementation consultant documentation, recent therapynotes, laboratory and radiology studies, and discussion of case with care team including physician, nursing, case consultant, and therapists. More than 50 % of time was spent on patient/family counseling or coordination ofcare. Documented By: Albert Swan MD 03/24/24 7763 Signed By: <Electronically signed by Albert Swan MD> 03/24/242000 [facility] Work Phone: 1(668) 420-944307-22-2024 Progress note Author Albert Swan [facility] March 24, 2024 1:12pm Note Date/Time March 22, 2024 11:1 8am [facility] [address] [place] [address] Physiatry(Rehab) Progress Note Signed Patient: Queta Quiroga MR#: [id number] 1178 : 1945 Acct:[id number] Age/Sex: 78 / M Adm Date: 4 Loc: 5T Room: 4S5749-0 Type: ADM IN Attending Dr: Albert Swan MD Copies to: ~ Date of Service: 03/22/2024 Subjective Subjective Narrative: Mr. Quiroga is a 78 year old male presenting [...] Room Air 03/22/24 05:00 03/22/24 05:00 03/22/24 05:03/22/24 05:03/22/24 05:03/22/24 07:30 Narrative: General: Awake, alert, oriented x3 [...] mg 03/16/24 13:09 Bisacodyl 10 Mg Supp.Rect LA 03/16/25 13:08 DAILY PRN Constipation Cyclobenzaprine HCl [...] 13:09 Docusate Enema 283 Mg/5 Ml Enema LA 03/16/25 13:08 DAILY PRN Constipation Enoxaparin Sodium [...] I spent 21 minutes for services, including vial-ba-ltsq encounter with the patient, discussion of the case, plan of care, and exam; and jqmcmev-qj-umrc activities, such as reviewing pertinent implementation consultant documentation, recent therapynotes, laboratory and radiology studies, and discussion of case with care team including physician, nursing, case consultant, and therapists. More than 50 % of time was spent on patient/family counseling or coordination ofcare. <Statement entered by Albert Swan MD - 03/24/24 13:12> This documentation has been reviewed and approved. I reviewed the history and the relevant portions of the chart, including currentorders, allied health and implementation consultant notes, labs/imaging and plan of care as above. Documented By: Glendy Calabrese APRN 03/22/24 1 118 Signed By: <Electronically signed by RALPH Calabrese> 03/22/24 1122 <Electronically signed by Albert Swan MD> 03/24/24 1312 [facility] Work Phone: 1([phone]) 440-191307-22-2024 Progress note Author Albert Swan [facility] March 24, 2024 1:12pm Note Date/Time March 24, 2024 12:0 7pm [facility] [address] [place] [address] Physiatry(Rehab) Progress Note Signed Patient: Queta Quiroga MR#: [id number] 1178 : 1945 Acct:[id number] Age/Sex: 78 / M Adm Date: 4 Loc: Room: [address] [place] [address] Type: ADM IN Attending Dr: Albert Swan MD Copies to: ~ Date of Service: 03/24/2024 Subjective Subjective Narrative: Mr. Quiroga is a 78 year old male presenting [...] Room Air 03/24/24 04:09 03/24/24 04:09 03/24/24 04:09 03/24/24 04:09 03/24/24 04:09 03/24/24 10:12 Narrative: General: Awake, alert, oriented x3 [...] mg 03/16/24 13:09 Bisacodyl 10 Mg Supp.Rect LA 03/16/25 13:08 DAILY PRN Constipation Cyclobenzaprine HCl [...] 13:09 Docusate Enema 283 Mg/5 Ml Enema LA 03/16/25 13:08 DAILY PRN Constipation Enoxaparin Sodium [...] I spent 24 minutes for services, including ywqr-kc-yyml encounter with the patient, discussion of the case, plan of care, and exam; and yvexmec-iw-dfiy activities, such as reviewing pertinent implementation consultant documentation, recent therapynotes, laboratory and radiology studies, and discussion of case with care team including physician, nursing, case consultant, and therapists. More than 50 % of time was spent on patient/family counseling or coordination ofcare. <Statement entered by Albert Swan MD - 03/24/24 13:12> This documentation has been reviewed and approved. Patient was personally seen by me, Dr. Swan, on the day of encounter, reviewed the history and the relevant portions of the chart, including current orders, allied health and implementation consultant notes, labs/imaging and performed sherman elements of exam and I formulated the plan of care and facilitated the medical decision making. I completed a substantive portion of this encounter, the medical decision makingportion of this note in its entirety, including Allied health note review, nursing note review, implementation consultant note review, discussion with nursing and case management, and more than 50% of my time was spent on counseling and coordination of care, time spent 30 minutes Documented By: Glendy Calabrese APRN 03/24/24 1 206 Signed By: <Electronically signed by RALPH Calabrese> 03/24/24 1211 <Electronically signed by Albert Swan MD> 03/24/24 1312 [facility] Work Phone: 1(840) 609-249407-19-2024 Progress note Author Camron Carpenter [facility] March 21, 2024 1:37pm Note Date/Time March 21, 2024 1:37 pm [facility] [address] [place] [address] Physiatry(Rehab) Progress Note Signed Patient: Queta Quiroga MR#: [id number] 1178 : 1945 Acct:[id number] Age/Sex: 78 / M Adm Date: 4 Loc: Room: [address] [place] [address] Type: ADM IN Attending Dr: Albert Swan MD Copies to: ~ Date of Service: 03/21/2024 Subjective Subjective Narrative: Mr. Quiroga is a 78 year old male presenting [...] mg 03/16/24 13:09 Bisacodyl 10 Mg Supp.Rect LA 03/16/25 13:08 DAILY PRN Constipation Cyclobenzaprine HCl [...] 13:09 Docusate Enema 283 Mg/5 Ml Enema LA 03/16/25 13:08 DAILY PRN Constipation Enoxaparin Sodium [...] I spent 25 minutes for services, including xoos-rx-nrhj encounter with the patient, discussion of the case, plan of care, and exam; and mxqibvi-js-acbk activities, such as reviewing pertinent implementation consultant documentation, recent therapynotes, laboratory and radiology studies, and discussion of case with care team including physician, nursing, case consultant, and therapists. More than 50 % of time was spent on patient/family counseling or coordination ofcare. Patient was personally seen by me, Dr. Carpenter, on the day of encounter, reviewed the history and the relevant portions of the chart, including current orders, allied health and implementation consultant notes, labs/imaging and performed sherman elements of exam and I formulated the plan of care and facilitated the medical decision making. Documented By: Camron Carpenter MD 1333 Signed By: <Electronically signed by Camron Carpenter MD> 03/21/24 1337 [facility] Work Phone: 1(218) 455-516607-18-2024 Progress note Author Albert Swan [facility] March 20, 2024 7:40am Note Date/Time March 19, 2024 12:2 6pm [facility] [address] [place] [address] Physiatry(Rehab) Progress Note Signed Patient: Queta Quiroga MR#: [id number] 1178 : 1945 Acct:[id number] Age/Sex: 78 / M Adm Date: 4 Loc: Room: [address] [place] [address] Type: ADM IN Attending Dr: Albert Swan MD Copies to: ~ <Glendy Calabrese APRN - Last Filed: 03/19/24 12:32> Date of Service: 03/19/2024 Subjective <Glendy Calabrese APRN - Last Filed: 03/19/24 12:32> Subjective Narrative: Mr. Quiroga is a 78 year old male presenting [...] assist with transfers. Review of Systems <Glendy Calabrese APRN - Last Filed: 03/19/24 12:32> Review of [...] % (Auto) 67.3 Lymph % (Auto) 17.6 Dyer % (Auto) 12.8 Eos % (Auto) 1.9 Baso % (Auto) 0.4 Nucleat RBC Rel Count 0.0 Neut # (Auto) 5.1 Lymph # (Auto) 1.3 Dyer # (Auto) 1.0 H Eos # (Auto) [...] MPV Neut % (Auto) Lymph % (Auto) Dyer % (Auto) Eos % (Auto) Baso % (Auto) Nucleat RBC Rel Count Neut # (Auto) Lymph # (Auto) Dyer # (Auto) Eos # (Auto) Baso # [...] mg 03/16/24 13:09 Bisacodyl 10 Mg Supp.Rect LA 03/16/25 13:08 DAILY PRN Constipation Cyclobenzaprine HCl [...] 13:09 Docusate Enema 283 Mg/5 Ml Enema LA 03/16/25 13:08 DAILY PRN Constipation Enoxaparin Sodium [...] 03/16/25 13:08 PRN PRN Flush Assessment/Plan <Glendy Calabrese, RALPH - Last Filed: 03/19/24 12:32> Assessment/Plan (1) [...] I spent 17 minutes for services, including wacr-tu-odsc encounter with the patient, discussion of the case, plan of care, and exam; and neqpwxp-uh-mnnk activities, such as reviewing pertinent implementation consultant documentation, recent therapynotes, laboratory and radiology studies, and discussion of case with care team including physician, nursing, case consultant, and therapists. More than 50 % of [...] I spent 23 minutes for services, including kpjs-wj-wljt encounter with the patient, discussion of the case, plan of care, and exam; and hhgvyhj-zu-vxog activities, such as reviewing pertinent implementation consultant documentation, recent therapynotes, laboratory and radiology studies, and discussion of case with care team including physician, nursing, case consultant, and therapists. More than 50 % of time was spent on patient/family counseling or coordination ofcare. Patient was personally seen by me, Dr. Swan, on the day of encounter, reviewed the history and the relevant portions of the chart, including current orders, allied health and implementation consultant notes, labs/imaging and performed sherman elements of exam and I formulated the plan of care and facilitated the medical decision making. Documented By: Glendy Calabrese APRN 03/19/24 1 226 Signed By: <Electronically signed by RALPH Calabrese> 03/19/24 1232 <Electronically signed by Albert Swan MD> 03/20/24 0740 [facility] Work Phone: 1([phone]) 845-716607-17-2024 Progress note Author Sharon Ruggiero [facility] March 19, 2024 4:37pm Note Date/Time March 19, 2024 4:32 pm [facility] [address] [place], [place] [id number] Hospitalist Progress Note Signed Patient: Queta Quiroga MR#: [id number] 1178 : 1945 Acct:[id number] Age/Sex: 78 / M Adm Date: 4 Loc: Room: [address] [place] [address] Type: ADM IN Attending Dr: Albert Swan MD Copies to: ~ Date of Service: 03/18/2024 Subjective Subjective Narrative: Patient seen and examined on follow up. documentation demonstrated no hypoxia or need for oxygen. COVID positive status with cough and exertional dyspnea upon arrival to [facility]. Ongoing postoperative pain with LLE weakness. Continues [...] mg 03/16/24 13:09 Bisacodyl 10 Mg Supp.Rect LA 03/16/25 13:08 DAILY PRN Constipation Cephalexin HCl [...] 13:09 Docusate Enema 283 Mg/5 Ml Enema LA 03/16/25 13:08 DAILY PRN Constipation Enoxaparin Sodium [...] <Electronically signed by RALPH Ruggiero> 03/19/24 1637 [facility] Work Phone: 1([phone]) 636-397407-17-2024 Progress note Author Albert Swan [facility] March 19, 2024 12:03pm Note Date/Time March 18, 2024 4:50 pm [facility] [address] [place] [address] Physiatry(Rehab) Progress Note Signed Patient: Queta Quiroga MR#: [id number] 1178 : 1945 Acct:[id number] Age/Sex: 78 / M Adm Date: 4 Loc: Room: [address] [place] [address] Type: ADM IN Attending Dr: Albert Swan MD Copies to: ~ Date of Service: 03/18/2024 Subjective Subjective Narrative: Mr. Quiroga is a 78 year old male presenting [...] Cloudy A Urine pH 7.5 Ur Specific [place] 1.018 Urine Protein 30 H Urine Glucose [...] Color Urine Appearance Urine pH Ur Specific [place] Urine Protein Urine Glucose (UA) Urine Ketones [...] mg 03/16/24 13:09 Bisacodyl 10 Mg Supp.Rect LA 03/16/25 13:08 DAILY PRN Constipation Cyclobenzaprine HCl 10 mg 03/16/24 13:07 03/18/24 12:36 Cyclobenzaprine 10 Mg Tablet PO 03/16/25 13:06 10 mg TID PRN Administration muscle spasm Docusate Sodium 100 mg 03/16/24 13:09 03/18/24 07:52 Docusate 100 Mg Capsule PO 03/16/25 13:08 100 mg BID PRN Administration Constipation Docusate Sodium 283 mg 03/16/24 13:09 Docusate Enema 283 Mg/5 Ml Enema LA 03/16/25 13:08 DAILY PRN Constipation Enoxaparin Sodium [...] I spent 25 minutes for services, including hvzy-qd-cgws encounter with the patient, discussion of the case, plan of care, and exam; and xmkdszy-rz-xzwm activities, such as reviewing pertinent implementation consultant documentation, recent therapynotes, laboratory and radiology studies, and discussion of case with care team including physician, nursing, case consultant, and therapists. More than 50 % of time was spent on patient/family counseling or coordination ofcare. Documented By: Albert Swan MD 03/18/24 3244 Signed By: <Electronically signed by Albert Swan MD> 03/19/24 1208 [facility] Work Phone: 1(544) 627-129307-16-2024 Consult note Author Jackelyn Mott [facility] March 18, 2024 12:48pm Note Date/Time March 17, 2024 5:15 pm [facility] [address] [place], [place] [id number] Hospitalist Consult Note Signed Patient: Queta Quiroga MR#: [id number] 1178 : 1945 Acct:[id number] Age/Sex: 78 / M Adm Date: 4 Loc: Room: 5D2614-0 Type: ADM IN Attending Dr: Albert Swan [...] by therapy services there and transferred to [facility] for ongoing rehabilitative management. Hospitalist team is now consulted for management of chronic conditions including diabetes and hypertension. Nursing did report congestion and wheezing earlier, he was essentially diminished at time of my visit PENDING SALE TO [facility] Medical History Lumbar stenosis Lumbar radiculopathy Colonoscopy [...] PO BID 03/16/24 [History Confirmed 03/16/24] omega 0-exu-ows-fish oil 1,000 mg (120 mg-180 mg) capsule [...] mg 03/16/24 13:09 Bisacodyl 10 Mg Supp.Rect LA 03/16/25 13:08 DAILY PRN Constipation Cyclobenzaprine HCl 10 mg 03/16/24 13:07 03/16/24 15:59 Cyclobenzaprine 10 Mg Tablet PO 03/16/25 13:06 10 mg TID PRN Administration muscle spasm Docusate Sodium 100 mg 03/16/24 13:09 Docusate 100 Mg Capsule PO 03/16/25 13:08 BID PRN Constipation Docusate Sodium 283 mg 03/16/24 13:09 Docusate Enema 283 Mg/5 Ml Enema LA 03/16/25 13:08 DAILY PRN Constipation Ferrous Sulfate 324 mg 03/16/24 21:00 03/17/24 08:21 Ferrous Sulfate 324 Mg Tablet.Dr PO 03/16/25 20:59 324 mg BID MARIELOS [...] % (Auto) 58.5, Lymph % (Auto) 24.9, Dyer % (Auto) 13.0, Eos % (Auto) 3.3, Baso % (Auto) 0.3, Nucleat RBC Rel Count 0.1, Neut # (Auto) 4.1, Lymph # (Auto) 1.8, Dyer # (Auto) 0.9 H, Eos # (Auto) [...] PCP and out patient providers to obtain [facility] record entirely to follow up on illnesses, symptoms, abnormal findings that I have and have not addressed duringthis encounter and hospitalization in out patient setting. Documented By: Sharon Ruggiero APRN 03/03 01/24 1500 Signed By: <Electronically signed by RALPH Ruggiero> 03/17/24 1726 <Electronically signed by Jackelyn Mott MD> 03/18/24 1248 [facility] Work Phone: 1([phone]) 723-226907-16-2024 History and physical note Author Albert Swan [facility] March 18, 2024 11:37am Note Date/Time March 17, 2024 11:1 3am [facility] [address] [place] [address] Physiatry (Rehab) H&P Signed Patient: Queta Quiroga MR#: [id number] 1178 : 1945 Acct:[id number] Age/Sex: 78 / M Adm Date: 4 Loc: Room: 0V2367-4 Type: ADM IN Attending Dr: Albert Swan MD Copies to: MD Glendy Ledezma, RALPH Swan MD~ Date of Service: 03/17/2024 HPI The patient was seen and examined on: 03/17/24 Etiologic Diagnosis/Impairment Group: 08.9 Chief complaint: back pain, difficulty functioning History of Present Illness: Mr. Quiroga is a 78 year old male presenting [...] support and can get assistance if necessary. PENDING SALE TO [facility] Medical History Lumbar stenosis Lumbar radiculopathy Colonoscopy [...] PO BID 03/16/24 [History Confirmed 03/16/24] omega 9-wrq-qyc-fish oil 1,000 mg (120 mg-180 mg) capsule [...] Bisacodyl (Bisacodyl 10 Mg Supp.Rect) 10 mg LA DAILY PRN PRN Reason: Constipation Stop: 03/16/25 13:08 Cyclobenzaprine HCl (Cyclobenzaprine 10 Mg Tablet) 10 mg PO TID PRN PRN Reason: muscle spasm Stop: 03/16/25 13:06 Last Admin: 03/16/24 15:59 Dose: 10 mg Docusate Sodium (Docusate 100 Mg Capsule) 100 mg PO BID PRN PRN Reason: Constipation Stop: 03/16/25 13:08 Docusate Sodium (Docusate Enema 283 Mg/5 Ml Enema) 283 mg LA DAILY PRN PRN Reason: Constipation Stop: 03/16/25 13:08 Ferrous Sulfate (Ferrous Sulfate 324 Mg Tablet.) 324 mg PO BID [facility] Stop: 03/16/25 20:59 Last Admin: 03/17/24 08:21 Dose: 324 mg Glimepiride (Glimepiride 1 Mg Tablet) 1 mg PO DAILY.WITH.BKFAST [facility] Stop: 03/17/25 07:59 Last Admin: 03/17/24 08:20 Dose: 1 mg Lactulose (Lactulose 20 Gm/30 Ml Udc) 30 gm PO DAILY PRN PRN Reason: Constipation Stop: 03/16/25 13:08 Lisinopril (Lisinopril 40 Mg Tablet) 40 mg PO DAILY [facility] Stop: 03/17/25 08:59 Last Admin: 03/17/24 08:20 Dose: 40 mg Metoprolol Tartrate (Metoprolol Tartrate 50 Mg Tablet) 50 mg PO BID [facility] Stop: 03/17/25 08:59 Last Admin: 03/17/24 08:20 Dose: 50 mg Oxycodone/Acetaminophen (Oxycodone/Acetaminophen 5-325 Mg Tablet) 1 tab PO [id number] PRN Reason: pain Last Admin: 03/17/24 08:21 Dose: 1 tab Pantoprazole Sodium (Pantoprazole 40 Mg Tablet.) 40 mg PO DAILY [facility] Stop: 03/17/25 08:59 Last Admin: 03/17/24 08:20 [...] % (Auto) 58.5 Lymph % (Auto) 24.9 Dyer % (Auto) 13.0 Eos % (Auto) 3.3 Baso % (Auto) 0.3 Nucleat RBC Rel Count 0.1 Neut # (Auto) 4.1 Lymph # (Auto) 1.8 Dyer # (Auto) 0.9 H Eos # (Auto) [...] MPV Neut % (Auto) Lymph % (Auto) Dyer % (Auto) Eos % (Auto) Baso % (Auto) Nucleat RBC Rel Count Neut # (Auto) Lymph # (Auto) Dyer # (Auto) Eos # (Auto) Baso # [...] 14 days Expected Discharge Destination: Home Rehabilitation C: 08.9 Primary Diagnosis: s/p lumbar spine fusion [...] 24 hour daily monitoring and intervention from Chain Forming Machine Operator as well as other consulting physicians including internal medicine as well as 24 hour daily hvac commercial salesperson nursing - for medical safe / optimal [...] I spent 36 minutes for services, including [id number] encounter with the patient, discussion of the case, plan of care, and exam; and [id number] activities, such as reviewing pertinent implementation consultant documentation, recent therapynotes, laboratory and radiology studies, and discussion of case with care team including physician, nursing, case consultant, and therapists. More than 50 % of time was spent on patient/family counseling or coordination ofcare. I completed a substantive portion of this encounter, the medical decision makingportion of this note in its entirety, including Allied health note review, nursing note review, implementation consultant note review, discussion with nursing and case management, and more than 50% of my time was spent on counseling and coordination of care, time spent 65 minutes Patient was personally seen by me, Dr. Swan, on the day of encounter, within 24hours of rehab admission, reviewed the history and the relevant portions of the chart, including current orders, allied health and implementation consultant notes, labs/imaging and performed sherman elements of exam and I formulated the plan of care and facilitated the medical decision making. Documented By: Glendy Calabrese APRN 03/17/24 1 113 Signed By: <Electronically signed by RALPH Calabrese> 03/17/24 1156 <Electronically signed by Albert Swan MD> 03/18/24 1137 [facility] Work Phone: Evaluation noteNo assessment information available [facility] Work Phone: Evaluation note* Diagnosis Onset Date Resolution Status CKD (chronic kidney disease) acute COVID acute COVID-19 acute Diabetes mellitus acute GERD (gastroesophageal reflux disease) acute Hyperlipemia acute Hypertension acute Impaired mobility and activities of daily living acute Lumbar stenosis acute S/P lumbar fusion acute UTI (urinary tract infection), bacterial acute [facility] Work Phone: Summary Purpose Family History No Family History Records FoundNo Family History Records FoundNo Family History Records FoundNo Family History Records Found Advance Directives No Advanced Directives Records Found Advance Directive Response Recorded Date/ Time Advance Directives No November 12 3:11pm Chief Complaint and Reason for Visit [...] Records FoundNo Status Records FoundNo Status Records FoundNo Status Records Found INFORMATION SOURCE (unrecogn ized section and content) DATE CREATED AUTHOR 04/30/2020 Caba Morrill [facility] DATE CREATED AUTHOR AUTHOR'S ORGANIZ ATION 08/23/2022 [facility] DATE CREATED AUTHOR AUTHOR'S ORGANIZ ATION 04/15/2024 [facility] DATE CREATED AUTHOR AUTHOR'S ORGANIZ ATION 05/28/2024 [facility] EPIC Care Teams (unrecognized sec tion and content) Team Status: Active Member Role Status Martina Liz MD Primary Care Provider Active Team Status: Inactive Member Role Status Dates Kaitlynn Liz MD Primary Care Provide r, Attending Provider Active Start: November 14, 2023 End: November 14, 2023 Team Status: Inactive Member Role Status Martina Liz MD Primary Care Provider Active Start: December 28, 2023 End: December 28, 2023 Jed Salgado MD Attending Provider Active Start: December 28, 2023 End: December 28, 2023 Team Status: Inactive Member Role Status Martina Liz MD Primary Care Provider Active Start: [...] 2024 End: March 31, 2024 Leslie Edge RN Other Provider Active Start : March 16, 2024 End: March 31, 2024 Tejal Martin RN Other Provider Active Star t: March 16, 2024 End: March 31, 2024 Nuris Srinivasan RN Other Provider Active Start: 2023 End: March 31, 2024 Halie Pedraza [...] Kaitlin Fournier MD Other Provider Active Start: Angelica sousa 2023 End: March 31, 2024 Steve Steinberg MD Other Provider Active Start: Mar End: March 31, 2024 Leta Glass NP-Ja Other Provider Active St art: March 16, 2024 End: March 31, 2024 Ronald Kumar APRN Other Provider Active Star t: March 16, 2024 End: March 31, 2024 Ren Ortega MD Other Provider Active Start: March 16, 2024 End: March 31, 2024 Mynor Hernandez MD Other Provider Active Start: Ju ly 2023 End: March 31, 2024 Flavio Gee MD Other Provider Active Start: Mar End: March 31, 2024 Cindy Hager MD Other Provider Active Star t: March 16, 2024 End: March 31, 2024 Ousmane Benson MD Other Provider Active Start: Lexus duenas 2023 End: March 31, 2024 Kristan Valle DO Other Provider Active Start: Angelica ly 2023 End: March 31, 2024 Dk Patino DO Other Provider Active Start : March 16, 2024 End: March 31, 2024 Vilma King APRN Other Provider Active Start: March 16, 2024 End: March 31, 2024 Gus Marie DO Other Provider Active Start: March 16, [...] Lexus duenas 2023 End: March 31, 2024 Shimon Stout [...] Antonio Boss MD Other Provider Active Start: 2023 End: March 31, 2024 Дмитрий Clemons MD Other Provider Active Start: Ju ly 2023 End: March 31, 2024 Ingrid Kowalski , MARK Other Provider Active Start: 2023 End: March 31, 2024 Team Status: Active Member Role Status Dates Kaitlynn Liz MD Primary Care Provider Active Start: March 17, 2024 Albert Swan MD Admit Provider, Othe r Provider Active Start: March 17, 2024 Nathalie Franco RN Other Provider Active Star t: March 17, 2024 Leslie Edge RN Other Provider Active Start : March 17, 2024 Tejal Martin RN Other Provider Active Star t: March 17, [...] Active Start: March 17, 2024 Gus Marie DO Other Provider Active Start: March 17, [...] Antonio Boss MD Other Provider Active Start: 2023 Дмитрий Clemons MD Other Provider Active Start: 2023 Ingrid Kowalski RN Other Provider Active Start: 2023 Glendy Calabrese APRN Attending Provider Active Start: March 17, 2024 Team Status: Active Member Role Status Dates Kaitlynn Liz MD Primary Care Provider Active Start: March 24, 2024 Albert Swan MD Admit Provider, Othe r Provider Active Start: March 24, 2024 Nathalie Franco , MARK Other Provider Active Star t: March 24, 2024 Leslie Edge , MARK Other Provider Active Start : March 24, 2024 Tejal Martin , MARK Other Provider Active Star t: March 24, 2024 Nuris Srinivasan , MARK Other Provider Active Start: J 2023 Halie Pedraza , MARK Other Provider Active Start: ly 2023 Jackelyn Mott MD Other Provider Active Start: March 24, 2024 Gisela Chaidez DO Other Provider Active [...] Steve Steinberg MD Other Provider Active Start: Jan y 2023 ERIN Cohi Other Provider Active St art: March 24, 2024 Ronald Kumar APRN Other Provider Active Star t: March 24, 2024 Ren Ortega MD Other Provider Active Start: March 24, 2024 Mynor Hernandez MD Other Provider Active Start: Ju ly 2023 lFavio Gee MD Other Provider Active Start: Jan y 2023 Cindy Hager MD Other Provider Active Star t: March 24, 2024 Ousmane Benson MD Other Provider Active Start: J henrique 2023 Kristan Valle DO Other Provider Active Start: Ju ly 2023 Dk Patino , Other Provider Active Start [...] tart: March 24, 2024 Josh Brown , Other Provider Active Star t: March 24, 2024 Han Ruth DO Other Provider Active Start: March 24, 2024 Felix Gee MD Other Provider Active Start: March 24, 2024 Julia Rai MD Other Provider Active Start: March 24 Meche Deal APRN Other Provider Active Star t: March 24, 2024 Antonio Boss MD Other Provider Active Start: J [email or web address] Дмитрий Clemons MD Other Provider Active Start: Ju ly 2023 Ingrid Kowalski RN Other Provider Active Start: J 2023 Glendy Calabrese APRN Attending Provider Active [...] BE BASED ON THE PRIMARY CLINICAL RECORDS. [employer] [facility]. provides no warranty or guarantee of the accuracy or completeness of information in this document.
== END 2024-06-06 10:50 | disposition home or self-care (01) ==
LOC: EC 10:49
PROVIDERS: PCP Family Medicine; Visit Provider Orthopaedic Surgery Orthopaedic Surgery of the Spine
DX: M54.50 Low back pain, unspecified (principal); M43.26 Fusion of spine, lumbar region
CPT/HCPCS: 72100

== ENCOUNTER 2024-09-19 09:58 | Outpatient (OUT) | payer MEDICARE, SELFPAY ==
--- NOTE | 2024-09-19 | XR_ITS ---
The [address] [address] Patient Name: QUETA QUIROGA MRN: [id number] date: 1945 Sex: M Assigned Patient Location: Current Patient Location: Accession/Order Number: [id number] Exam Date: 09/19/2024 10:50 Report Date: 09/22/2024 21:24 At the request of: GITA MAGANA Procedure: XR lumbar spine min 4V EXAM: XR lumbar spine min 4V HISTORY: LUMBAR SPINE PAIN COMPARISON: 12/07/2023 FINDINGS/IMPRESSION: 1. No acute fracture or dislocation. 2. Posterior spinal fusion hardware at L2-L3, L4 and L4-5 with bilateral pedicle screws and interconnecting rods. 3. 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 4. Retrolisthesis of L1 on L2 measuring 0.5 cm. No instability on flexion-extension views. 5. Moderate disc degeneration at T10-T11 and T11-T12. 6. Overlying bowel gas pattern is nonspecific and nonobstructive. Electronically authenticated by: SENTHIL RANDOLPH Date: 09/22/2024 21:24
--- OUTSIDE RECORDS SUMMARY | 2024-09-19 10:11 | XMS_ITS | CCD ---
Author Organization [facility] Care Team Providers Care Computer Systems Software Engineer Name Role Phone DR KAITLYNN LIZ Attending Unavailable DR KAITLYNN LIZ Consulting Unavailable DR KAITLYNN LIZ Primary Care Unavailable DR KAITLYNN LIZ Admitting Unavailable MD Kaitlynn Liz Primary Care Provider [phone] MD Kaitlynn Liz Attending Provider [phone] MD Jed Salgado F Attending Provider [phone] MD Kaitlynn Liz Primary Care Provider [phone] WILLIAM Monte Attending Provider [phone] MD Kaitlynn Liz Primary Care Provider [phone] [...] Other Provider MD Nancy Poon Other Provider MD Elvin Reece Other Provider Unavailable RALPH Ruggiero Other Provider [phone] MD Rich Mcclain Other Provider MD Geovani [...] Other Provider DO Gus Marie Other Provider [phone] MD Joey Olson Other Provider RALPH Christopher Other Provider RALPH Cabello Other Provider MD Kelsea Steele Other Provider MD Shimon Stout Other Provider DO Josh Brown Other Provider DO Han Ruth Other Provider MD Felix Gee Other Provider MD Julai Rai Other Provider [phone] RALPH Deal Other Provider MD Antonio Boss Other Provider MD Дмитрий Clemons Other Provider MARK Kowalski Other Provider Unavailable Unavailable Primary Care Provider Unavailabl e Adriany, Kaitlynn M Attending Unavailable Hoy, Kaitlynn M Primary Care Unavailable Hoy, Kaitlynn M Admitting Unavailable Hoy, Kaitlynn M Primary Care Unavailable Naomi, Selvon F Attending Unavailable Naomi, Selvon F Admitting Unavailable Hoy, Kaitlynn M Primary Care Unavailable Onesimo Monteis L Attending Unavailable Diglio, Austin L Admitting Unavailable Beny, Albert Attending [...] Elvin Reece Consulting Unavailable Sharon Ruggiero Consulting Unavailabl Rich Brownlee Consulting Unavailable Geovani Blue Consulting Unavailable Clara [...] Consulting Unavailable Ingrid Kowalski Consulting Unavailable TIA GREER Attending Unavailable TIA GREER A Attending Unavailable TIA GREER Attending Unavailable TIA GREER A Attending Unavailable GAUDENCIO FITZGERALD A Attending Unavailable Allergies Allergy Classification Reported Allergen(s) Allergy Type Date of Onset Reaction(s) Facility (1 source) Ciprofloxacin Drug Allergy 08-14-2016 [facility] Repository (17 sources) Cephalexin; Translations: [cephalexin] Drug Allergy 03-18-2024 Itching [facility] Medications Current Medications Medication Drug Class(es) Dates Sig (Normalized) Sig (Original) acetaminophen 325 mg / oxyCODONE hydrochloride 5 mg oral tablet (2 sources) Opioid Agonist Start: 03-31-2024 take 1 tablet by mouth every six hours Oxycodone-Acetami nophen Active 1 TAB PO Every 6 hours 20 7 March 31, 2024 Start: 03-16-2024 End: 03-31-2024 take 1 tablet by mouth every six hours Oxycodone-Acetaminophen (Percocet) 5-325 mg tablet Discontinued 1 TAB PO Every 6 hours March 16, 2024 12:00am March 31, 2024 9:20am aspirin 81 mg oral tablet (18 sources) Platelet Aggregation Inhibitor, Nonsteroidal Anti-inflammatory Drug Start: 03-16-2024 End: 03-31-2024 take 81 mg by mouth once daily Aspirin Active 81 MG PO Daily March 31, 2024 9:19am aspirin 81 MG EC tablet ASA Active atenolol 50 mg oral tablet (17 sources) beta-Adrenergic Millie Start: 05-09-2023 End: 03-31-2024 take 1 tablet by mouth in the morning atenolol (Tenormin) 50 MG tablet Take 50 mg by mouth in the morning. 05/09/2023 Active atorvastatin 10 mg oral tablet (4 sources) HMG-CoA Reductase Inhibitor Start: 03-16-2024 End: 03-31-2024 take 10 mg by mouth once daily at bedtime Atorvastatin Active 10 MG PO Daily at bedtime March 31, 2024 12:00am cyclobenzaprine hydrochloride 10 mg oral tablet (4 sources) Muscle Relaxant Start: 03-16-2024 End: 03-31-2024 take 10 mg by mouth three times daily Cyclobenzaprine Active 10 MG PO Three times daily March 31, 2024 12:00am take 1 tablet by mouth once matthew y cyclobenzaprine (Flexeril) 10 MG tablet Take 10 mg by mouth Daily Active docusate sodium 100 mg oral capsule (3 sources) Start: 03-31-2024 Docusate Sodiu m (DSS) 100 MG capsule Twice daily 03/31/2024 Active ferrous sulfate 325 mg oral tablet (4 sources) Start: 07-21-2024 take 1 tablet by mouth once daily FeroSul 325 (65 Fe) MG tablet Take 1 tablet by mouth Daily 07/21/2024 Active Start: 03-31-2024 Ferrous Sulfat e Active 324 MG PO Every 48 hours March 31, 2024 12:00am Start: 03-16-2024 End: 03-31-2024 take 1 tablet by mouth twice daily Ferrous Sulfate (Feosol) 325 mg (65 mg iron) tablet Discontinued 325 MG PO Twice daily March 16, 2024 12:00am March 31, 2024 9:20am fluocinonide 0.5 mg/ml topical solution (20 sources) Corticosteroid Start: 05-26-2024 fluocinonide (Lidex) 0.05 % external solution Indications: Other atopic dermatitis Apply to affected areas on the scalp, up to twice a day when flared, 30 day supply 60 mL 07/10/2024 Active glimepiride 1 mg oral tablet (4 sources) Sulfonylurea Start: 03-16-2024 End: 03-31-2024 take 1 mg by mouth once daily at breakfast Glimepiride Active 1 MG PO Daily with breakfast March 31, 2024 12:00am ketoconazole 20 mg/ml medicated shampoo (13 sources) Azole Antifungal Start: 07-14-2024 ketoconazole (NIZOral) 2 % shampoo APPLY TWICE WEEKLY TO SCALP AND LATHER DIRECTED -LEAVE ON FOR 5 MINUTES BEFORE RINSING 07/14/2024 Active Start: 07-10-2024 End: 08-09-2024 ketoconazole (NIZOral) 2 % c ream Indications: Other atopic dermatitis Apply topically Daily Apply thin layer to affected area, once daily as needed when flared. 60 g 11 07/10/2024 08/09/2024 Active Start: 05-26-2024 End: 06-25-2024 ketoconazole (NIZOral) 2 % s hampoo Indications: Other seborrheic dermatitis Apply topically 2 (two) times a week Lather on scalp 2x a week, leave on 5 min before rinsing 120 mL 11 05/26/2024 06/25/2024 Active lisinopril 20 mg oral tablet (18 sources) Angiotensin Converting Enzyme Inhibitor Start: 03-31-2024 take 20 mg by mouth once daily Lisinopril Active 20 MG PO Daily March 31, 2024 12:00am Start: 03-21-2023 End: 03-31-2024 take 1 tablet by mouth in the morning lisinopril 40 MG tablet Take 40 mg by mouth in the morning. 03/21/2023 Active melatonin 5 mg oral tablet (3 sources) Start: 03-31-2024 take 2 tablets by mouth once daily at bedtime melatonin 5 MG tablet TAKE TWO TABLETS BY MOUTH DAILY AT BEDTIME 03/31/2024 Active Start: 03-31-2024 take 10 mg by mouth once daily at bedtime Melatonin Active 10 MG PO Daily at bedtime 60 March 31, 2024 12:00am metoprolol tartrate 50 mg oral tablet (3 sources) beta-Adrenergic Millie Start: 03-31-2024 take 50 mg by mouth twice daily Metoprolol Tartrate Active 50 MG PO Twice daily 60 March 31, 2024 12:00am omeprazole 20 mg delayed release oral capsule (17 sources) Proton Pump Inhibitor Start: 03-13-2023 End: 03-31-2024 take 1 capsule by mouth in the morning omeprazole (PriLOSEC) [address] capsule Take 20 mg by mouth in the morning. 03/13/2023 Active pantoprazole 40 mg delayed release oral tablet (3 sources) Proton Pump Inhibitor Start: 03-31-2024 take 40 mg by mouth once daily Pantoprazole Active 40 MG PO Daily 30 March 31, 2024 12:00am simvastatin 20 mg oral tablet (2 sources) HMG-CoA Reductase Inhibitor Start: 02-04-2024 take 1 tablet by mouth in the evening simvastatin (Zocor) 20 MG tablet Take 20 mg by mouth in the evening 02/04/2024 Active tacrolimus 0.001 mg/mg topical ointment (18 sources) Calcineurin Inhibitor Immunosuppressant Start: 07-29-2024 tacrolimus (Protopic) 0.1 % ointment Indications: Other atopic dermatitis Apply to affected areas, twice a day when flared, 30 day supply 30 g 11 07/29/2024 Active tacrolimus (Prot opic) 0.1 % ointment apply to affected areas topically Twice a day as needed for 30 days Active traMADol hydrochloride 50 mg oral tablet (2 sources) Opioid Agonist Start: 03-10-2024 take 1 tablet by mouth every six hours as needed traMADol (Ultram) 50 MG tablet Take 50 mg by mouth every 6 (six) hours if needed 03/10/2024 Active traZODone hydrochloride 50 mg oral tablet (3 sources) Serotonin Reuptake Inhibitor Start: 03-31-2024 traZODone (Desyrel) 50 MG tablet Daily at bedtime 03/31/2024 Active triamcinolone acetonide 1 mg/ml topical cream (12 sources) Corticosteroid Start: 06-16-2024 triamcinolone (Kenalog) 0.1 % cream Indications: Rash and other nonspecific skin eruption Apply topically 2 (two) times a day as needed for rash 453.6 g 3 06/16/2024 Active Completed/Discontinued Medications Medication Drug Class(es) Dates Sig (Normalized) Sig (Original) calcium carbonate 1500 mg / cholecalciferol 200 unt oral tablet (1 source) Vitamin D Start: 03-16-2024 End: 03-31-2024 take 1 tablet by mouth once daily Calcium Carbonate-Vitamin D3 (Calcium 600 + D(3)) 600 mg-5 mcg (200 unit) tablet Discontinued 1 TAB PO Daily March 16, 2024 12:00am March 31, 2024 9:20am fluticasone propionate 0.05 mg/actuat metered dose nasal spray (17 sources) Corticosteroid Start: 03-16-2024 End: 03-31-2024 take 1 spray(s) nasal route once daily Fluticasone Propionate (24 Hour Allergy Relief) 50 mcg/actuation spray,suspension Discontinued 1 SPRAY INTRANASAL Daily March 16, 2024 12:00am March 31, 2024 9:20am administer into each nostril Start: 05-22-2023 take 1 spray(s) nasa l route once daily fluticasone (Flonase) 50 MCG/ACT nasal spray INSTILL 1 SPRAY IN EACH NOSTRIL ONCE DAILY FOR 30 DAYS 05/22/2023 Active furosemide 20 mg oral tablet (17 sources) Loop Diuretic Start: 03-16-2024 End: 03-31-2024 take 20 mg by mouth once daily Furosemide Discontinued 20 MG PO Daily March 16, 2024 12:00am March 31, 2024 9:20am hyoscyamine sulfate 0.125 mg disintegrating oral tablet (1 source) Start: 03-16-2024 End: 03-31-2024 take 1 tablet by mouth every six hours Hyoscyamine Sulfate (Anaspaz) 0.125 mg tablet,disintegrat ing Discontinued 0.125 MG PO Every 6 hours March 16, 2024 12:00am March 31, 2024 9:20am meloxicam 15 mg oral tablet (3 sources) Nonsteroidal Anti-inflammatory Drug Start: 02-18-2024 End: 03-31-2024 take 15 mg by mouth once daily Meloxicam Discontinued 15 MG PO Daily March 16, 2024 12:00am March 31, 2024 9:20am Multivitamin (Daily Multi-Vitamin) tablet (1 source) Start: 03-16-2024 End: 03-31-2024 take 1 tablet by mouth once daily Multivitamin (Daily Multi-Vitamin) tablet Discontinued 1 TAB PO Daily March 16, 2024 12:00am March 31, 2024 9:20am nabumetone 500 mg oral tablet (17 sources) Nonsteroidal Anti-inflammatory Drug Start: 03-16-2024 End: 03-31-2024 take 500 mg by mouth twice daily Nabumetone Discontinued 500 MG PO Twice daily March 16, 2024 12:00am March 31, 2024 9:20am [place] 2-Uqt-Nxh-Fish Oil (Fish Oil) 1,000 mg (120 mg-180 mg) capsule (1 source) Start: 03-16-2024 End: 03-31-2024 take 1 capsule by mouth once daily [place] 3-Krb-Slh-Fish Oil (Fish Oil) 1,000 mg (120 mg-180 [...] Problem Classification Problem Date Documented Date Episodic/Chronic Allergic reactions (6 sources) Atopic dermatitis; Translations: [Other atopic dermatitis] 06-26-2024 Chronic Chronic kidney disease (3 sources) Chronic kidney [...] [Essential (primary) hypertension] Onset: 03-16-2024 03-17-2024 Chronic Neoplasms of unspecified nature or uncertain behavior (2 sources) Neoplastic disease; Translations: [Neoplasm of unspecified behavior of bone, soft tissue, and skin] 07-10-2024 Episodic Other aftercare (2 sources) Removal of sutures done; Translations: [Encounter for removal of sutures] 06-26-2024 Episodic Other and unspecified benign neoplasm (2 sources) Melanocytic nevus of trunk; Translations: [Melanocytic nevi of trunk] 05-26-2024 Episodic Other and unspecified benign neoplasm (2 sources) Skin lesion; Translations: [Hemangioma of skin and subcutaneous tissue] 05-26-2024 Episodic Other connective tissue disease (1 source) History of lumbar fusion; Translations: [Arthrodesis status] 03-17-2024 Episodic Other connective tissue disease (1 source) Arthrodesis status; Translations: [Arthrodesis status] 03-31-2024 Episodic Other inflammatory condition of skin (4 sources) Seborrheic dermatitis; Translations: [Other seborrheic dermatitis] 07-10-2024 Episodic Other skin disorders (2 sources) Eruption; Translations: [Rash and other nonspecific skin eruption] 06-16-2024 Episodic Other skin disorders (2 sources) Actinic keratosis; Translations: [Actinic keratosis] 05-26-2024 Episodic Other skin disorders (2 sources) Seborrheic keratosis; Translations: [Other seborrheic keratosis] 05-26-2024 Episodic Spondylosis; intervertebral disc disorders; other back [...] Translations: [Low back pain, unspecified] Onset: 12-28-2023 Viral infection (4 sources) Disease caused by 2019-nCoV; Translations: [COVID-19] 03-18-2024 Episodic Viral infection (1 source) COVID-19; Translations: [COVID-19] Onset: 03-16-2024 Past or Other Problems Problem Classification Problem Date Documented Da te Episodic/Chronic Administrative/social admission (3 sources) Other reduced mobility; Translations: [Impaired mobility and activities of daily living] Onset: 03-16-2024 03-17-2024 Episodic Bacterial infection; unspecified site (1 source) Bacterial infection, unspecified; Translations: [Bacterial infection, unspecified] Onset: 03-16-2024 Episodic Residual codes; unclassified (1 source) Other specified health status; Translations: [Other specified health status] Onset: 03-16-2024 Episodic Spondylosis; intervertebral disc disorders; other back problems (3 sources) Spinal stenosis of lumbar region; Translations: [Spinal stenosis, lumbar region without neurogenic claudication] Onset: 03-16-2024 03-17-2024 Episodic Unclassified (1 source) COUGH, UNSPECIFIED; Translations: [COUGH, UNSPECIFIED] Onset: 08-16-2022 Urinary tract infections (3 sources) Bacterial urinary infection; Translations: [Urinary tract infection, site not specified] Onset: 03-16-2024 03-19-2024 Episodic Results Test Name Value Interpretation Reference Range Facility Dermatopathology examon 07-04 CPT 29874*1 [facility] Final Diagnosis VERRUCOUS KERATOSIS WITH A BROAD ZONE OF EPIDERMAL NECROSIS AND PROMINENT STROMAL HEMORRHAGE. COMMENT: The findings noted are compatible with prior trauma. Clinical correlation is suggested. [facility] Gross Text [facility] ICD10 Code D23.70 [facility] Microscopic Description Microscopic exam ination performed. [facility] PROTOCOL F - FLAT [facility] Specimen type Nom (Spec) SPECIMEN: RIGHT LATERAL LEG [facility] No Panel Informationon 07-10 Type of biopsy: villa ential Informed consent: discussed and consent obtained Informed consent comment: The risks and benefits of the biopsy were discussed. Risks include but are not limited to bleeding, infection, scarring, pain, and nerve damage. An opportunity to ask questions prior to the procedure was permitted and all questions were answered. Patient was prepped and draped in usual sterile fashion: area cleansed with alcohol. Anesthesia: the lesion was anesthetized in a standard fashion Anesthetic: 1% lidocaine w/ epinephrine 1-100,000 buffered w/ 8.4% NaHCO3 Instrument used: DermaBlade Hemostasis achieved with: electrodesiccation Outcome: patient tolerated procedure well Outcome comment: The specimen was placed in a prelabeled formalin container to be sent for pathology Post-procedure details: sterile dressing applied and wound care instructions given Post-procedure details comment: Emphasized need to contact clinic for any signs of infection, uncontrollable bleeding, or complications. Dressing type: bandage Additional details: Photo taken Amount of lidocaine used: 1.0 cc [facility] No Panel Informationon 06-16 Type of biopsy: formerly [facility] Informed consent: discussed and consent obtained Informed consent comment: The risks and benefits were discussed. Risks include, but are not limited to, bleeding, infection, scarring, pain, & nerve damage. An opportunity to ask questions prior to the procedure was permitted and questions were answered. Patient was prepped and draped in usual sterile fashion: Area cleansed with alcohol. Anesthesia: the lesion was anesthetized in a standard fashion Anesthetic: 1% lidocaine w/ epinephrine 1-100,000 buffered w/ 8.4% NaHCO3 Punch size: 4 mm (A biopsy by punch method was performed using a dermal punch) Suture size: 4-0 Suture type: nylon Suture type comment: Hemostasis was achieved with suture. Suture removal (days): 10 Hemostasis achieved with: suture Outcome: patient tolerated procedure well Post-procedure details: sterile dressing applied and wound care instructions given Post-procedure details comment: Emphasized the need to contact clinic for any signs of infection, uncontrollable bleeding, or complications. Dressing type: bandage Additional details: Amount of lidocaine used: 1.4 cc Number of sutures used: 3 Specimen sent for: H&E Photo taken yes [facility] No Panel Informationon 05-26 [facility] Capillary blood glucose gayla urement by glucometer (mass/volume)Ordered By: Albert Swan on 03-31-2024 Glucose [Mass/Vol] 127 mg/dL Normal [facility] Comment on above: Random Glucose Refer ence Range is dependent on time and content of last meal. Glucose of more than 200 mg/dL in a nonstressed, ambulatory subject supports the diagnosis of Diabetes Mellitus. Result Comment: [facility] Glucose Reference Range is dependent on time and content of last meal. Glucose of more than 200 mg/dL in a nonstressed, ambulatory subject supports the diagnosis of Diabetes Mellitus. PERFORMED BY: [facility] [address] [place] [address] PATHOLOGIST SENIOR ANALYST DEVELOPER SHELBIE ALMONTE M.D. Performed By: #### G SUPA #### Point of Care testing , Glucose Poct Glucometerson 0 03-30-2024 Glucose [Mass/Vol] 203 mg/dL Normal [facility] Comment on above: Result Comment: [facility] Glucose Reference Range is dependent on time and content of last meal. Glucose of more than 200 mg/dL in a nonstressed, ambulatory subject supports the diagnosis of Diabetes Mellitus. [address]FORMED BY: [address] [place] [id number] PATHOLOGIST SENIOR ANALYST DEVELOPER SHELBIE ALMONTE M.D. Performed By: #### G LULS #### Point of Care testing , Glucose [Mass/Vol] 121 mg/dL Normal [facility] Comment on above: Result Comment: [place] Glucose Reference Range is dependent on time and content of last meal. Glucose of more than 200 mg/dL in a nonstressed, ambulatory subject supports the diagnosis of Diabetes Mellitus. PERFORMED BY: [address] [address] PATHOLOGIST SENIOR ANALYST DEVELOPER SHELBIE ALMONTE M.D. Performed By: #### G LULS #### Point of Care testing , Glucose [Mass/Vol] 174 mg/dL Normal [facility] Comment on above: Result Comment: [facility] Glucose Reference Range is dependent on time and content of last meal. Glucose of more than 200 mg/dL in a nonstressed, ambulatory subject supports the diagnosis of Diabetes Mellitus. PERFORMED BY: [address] [address] PATHOLOGIST SENIOR ANALYST DEVELOPER SHELBIE ALMONTE M.D. Performed By: #### G LULS #### Point of Care testing , Glucose [Mass/Vol] 131 mg/dL Normal [facility] Comment on above: Result Comment: [facility] Glucose Reference Range is dependent on time and content of last meal. Glucose of more than 200 mg/dL in a nonstressed, ambulatory subject supports the diagnosis of Diabetes Mellitus. PERFORMED BY: [address] [place] [id number] PATHOLOGIST SENIOR ANALYST DEVELOPER SHELBIE ALMONTE M.D. Performed By: #### G LULS #### Point of Care testing , Commemt1 Glu2: Cleaned Meter Normal [facility] Comment on above: Result Comment: PERF ORMED BY: [address] [place] [address] PATHOLOGIST SENIOR ANALYST DEVELOPER SHELBIE ALMONTE M.D. Performed By: #### G LULS #### Point of Care testing , Glucose [Mass/Vol] 120 mg/dL Normal [facility] Comment on above: Result Comment: [place] om Glucose Reference Range is dependent on time and content of last meal. Glucose of more than 200 mg/dL in a nonstressed, ambulatory subject supports the diagnosis of Diabetes Mellitus. Performed By: #### G LULS #### Point of Care testing , No Panel InformationOrdered By: Albert Swan on 03-30-2024 Bedside Glucose Comment Glu2: cleaned meter [facility] Glucose Poct Glucometerson 0 03-29-2024 Commemt1 Glu2: Cleaned Meter Normal [facility] Comment on above: Result Comment: PERF ORMED BY: [place] [address] PATHOLOGIST SENIOR ANALYST DEVELOPER SHELBIE ALMONTE M.D. Performed By: #### G LULS #### Point of Care testing , Glucose [Mass/Vol] 204 mg/dL Normal [facility] Comment on above: Result Comment: [facility] Glucose Reference Range is dependent on time and content of last meal. Glucose of more than 200 mg/dL in a nonstressed, ambulatory subject supports the diagnosis of Diabetes Mellitus. Performed By: #### G LULS #### Point of Care testing , Commemt1 Glu2: Cleaned Meter Normal [facility] Comment on above: Result Comment: PERF ORMED BY: [place] [address] PATHOLOGIST SENIOR ANALYST DEVELOPER SHELBIE ALMONTE M.D. Performed By: #### P AB, CMP, CBC #### [place] [address] [place] Glucose [Mass/Vol] 150 mg/dL Normal [facility] Comment on above: Result Comment: [place] Glucose Reference Range is dependent on time and content of last meal. Glucose of more than 200 mg/dL in a nonstressed, ambulatory subject supports the diagnosis of Diabetes Mellitus. Performed By: #### P AB, CMP, CBC #### [place] [address] [place] Glucose [Mass/Vol] 127 mg/dL Normal [facility] Comment on above: Result Comment: [place] om Glucose Reference Range is dependent on time and content of last meal. Glucose of more than 200 mg/dL in a nonstressed, ambulatory subject supports the diagnosis of Diabetes Mellitus. PERFORMED BY: [place] [address] PATHOLOGIST SENIOR ANALYST DEVELOPER SHELBIE ALMONTE M.D. Performed By: #### P AB, CMP, CBC #### [address] Glucose [Mass/Vol] 120 mg/dL Normal [facility] Comment on above: Result Comment: [place] om Glucose Reference Range is dependent on time and content of last meal. Glucose of more than 200 mg/dL in a nonstressed, ambulatory subject supports the diagnosis of Diabetes Mellitus. PERFORMED BY: [place] [address] PATHOLOGIST SENIOR ANALYST DEVELOPER SHELBIE ALMONTE M.D. Performed By: #### G LULS #### Point of Care testing , Glucose Poct Glucometerson 0 03-28-2024 Glucose [Mass/Vol] 193 mg/dL Normal [facility] Comment on above: Result Comment: [place] om Glucose Reference Range is dependent on time and content of last meal. Glucose of more than 200 mg/dL in a nonstressed, ambulatory subject supports the diagnosis of Diabetes Mellitus. PERFORMED BY: [place] [address] PATHOLOGIST SENIOR ANALYST DEVELOPER SHELBIE ALMONTE M.D. Performed By: #### G LULS #### Point of Care testing , Glucose [Mass/Vol] 105 mg/dL Normal [facility] Comment on above: Result Comment: [place] Glucose Reference Range is dependent on time and content of last meal. Glucose of more than 200 mg/dL in a nonstressed, ambulatory subject supports the diagnosis of Diabetes Mellitus. Performed By: #### G LULS #### Point of Care testing , Commemt1 Glu2: Cleaned Meter Normal [facility] Comment on above: Result Comment: PERF ORMED BY: [place] [address] PATHOLOGIST SENIOR ANALYST DEVELOPER SHELBIE ALMONTE M.D. Performed By: #### G LULS #### Point of Care testing , Glucose [Mass/Vol] 135 mg/dL Normal [facility] Comment on above: Result Comment: [place] om Glucose Reference Range is dependent on time and content of last meal. Glucose of more than 200 mg/dL in a nonstressed, ambulatory subject supports the diagnosis of Diabetes Mellitus. Performed By: #### G LULS #### Point of Care testing , Glucose [Mass/Vol] 128 mg/dL Normal [facility] [facility] Comment on above: Result Comment: [place] om Glucose Reference Range is dependent on time and content of last meal. Glucose of more than 200 mg/dL in a nonstressed, ambulatory subject supports the diagnosis of Diabetes Mellitus. PERFORMED BY: [place] [address] PATHOLOGIST SENIOR ANALYST DEVELOPER SHELBIE ALMONTE M.D. Performed By: #### G LULS #### Point of Care testing , Glucose Poct Glucometerson 0 03-27-2024 Glucose [Mass/Vol] 173 mg/dL Normal [facility] Comment on above: Result Comment: [place] Glucose Reference Range is dependent on time and content of last meal. Glucose of more than 200 mg/dL in a nonstressed, ambulatory subject supports the diagnosis of Diabetes Mellitus. PERFORMED BY: [place] [address] PATHOLOGIST SENIOR ANALYST DEVELOPER SHELBIE ALMONTE M.D. Performed By: #### G LULS #### Point of Care testing , Commemt1 Glu2: Cleaned Meter Normal [facility] Comment on above: Result Comment: PERF ORMED BY: [place] [address] PATHOLOGIST SENIOR ANALYST DEVELOPER SHELBIE ALMONTE M.D. Performed By: #### P AB, CMP, CBC #### [facility] [address] [place] [address] Glucose [Mass/Vol] 156 mg/dL Normal [facility] Comment on above: Result Comment: [place] Glucose Reference Range is dependent on time and content of last meal. Glucose of more than 200 mg/dL in a nonstressed, ambulatory subject supports the diagnosis of Diabetes Mellitus. Performed By: #### P AB, CMP, CBC #### [address] Glucose [Mass/Vol] 159 mg/dL Normal [facility] Comment on above: Result Comment: [place] Glucose Reference Range is dependent on time and content of last meal. Glucose of more than 200 mg/dL in a nonstressed, ambulatory subject supports the diagnosis of Diabetes Mellitus. PERFORMED BY: [place] [address] PATHOLOGIST SENIOR ANALYST DEVELOPER SHELBIE ALMONTE M.D. Performed By: #### G LULS #### Point of Care testing , Glucose [Mass/Vol] 130 mg/dL Normal [facility] Comment on above: Result Comment: [place] Glucose Reference Range is dependent on time and content of last meal. Glucose of more than 200 mg/dL in a nonstressed, ambulatory subject supports the diagnosis of Diabetes Mellitus. PERFORMED BY: [place] [address] PATHOLOGIST SENIOR ANALYST DEVELOPER SHELBIE ALMONTE M.D. Performed By: #### G LULS #### Point of Care testing , Glucose Poct Glucometerson 0 03-26-2024 Commemt1 Glu2: Cleaned Meter Normal [facility] Comment on above: Result Comment: PERF ORMED BY: [place] [address] PATHOLOGIST SENIOR ANALYST DEVELOPER SHELBIE ALMONTE M.D. Performed By: #### G LULS #### Point of Care testing , Glucose [Mass/Vol] 226 mg/dL Normal [facility] Comment on above: Result Comment: [place] Glucose Reference Range is dependent on time and content of last meal. Glucose of more than 200 mg/dL in a nonstressed, ambulatory subject supports the diagnosis of Diabetes Mellitus. Performed By: #### G LULS #### Point of Care testing , Glucose [Mass/Vol] 92 mg/dL Normal [facility] Comment on above: Result Comment: [place] Glucose Reference Range is dependent on time and content of last meal. Glucose of more than 200 mg/dL in a nonstressed, ambulatory subject supports the diagnosis of Diabetes Mellitus. PERFORMED BY: [place] [address] PATHOLOGIST SENIOR ANALYST DEVELOPER SHELBIE ALMONTE M.D. Performed By: #### G LULS #### Point of Care testing , Glucose [Mass/Vol] 239 mg/dL Normal [facility] Comment on above: Result Comment: [facility] Glucose Reference Range is dependent on time and content of last meal. Glucose of more than 200 mg/dL in a nonstressed, ambulatory subject supports the diagnosis of Diabetes Mellitus. PERFORMED BY: [place] [address] PATHOLOGIST SENIOR ANALYST DEVELOPER SHELBIE ALMONTE M.D. Performed By: #### G LULS #### Point of Care testing , Glucose [Mass/Vol] 129 mg/dL Normal [facility] Comment on above: Result Comment: [facility] Glucose Reference Range is dependent on time and content of last meal. Glucose of more than 200 mg/dL in a nonstressed, ambulatory subject supports the diagnosis of Diabetes Mellitus. PERFORMED BY: [place] [address] PATHOLOGIST SENIOR ANALYST DEVELOPER SHELBIE ALMONTE M.D. Performed By: #### G LULS #### Point of Care testing , Glucose Poct Glucometerson 0 03-25-2024 Commemt1 Glu2: Cleaned Meter Normal [facility] Comment on above: Result Comment: PERF ORMED BY: [place] [address] PATHOLOGIST SENIOR ANALYST DEVELOPER SHELBIE ALMONTE M.D. Performed By: #### P AB, CMP, CBC #### [address] Glucose [Mass/Vol] 196 mg/dL Normal [facility] Comment on above: Result Comment: [place] Glucose Reference Range is dependent on time and content of last meal. Glucose of more than 200 mg/dL in a nonstressed, ambulatory subject supports the diagnosis of Diabetes Mellitus. Performed By: #### P AB, CMP, CBC #### [address] Commemt1 Glu2: Cleaned Meter Normal [facility] Comment on above: Result Comment: PERF ORMED BY: [place] [address] PATHOLOGIST SENIOR ANALYST DEVELOPER SHELBIE ALMONTE M.D. Performed By: #### G LULS #### Point of Care testing , Glucose [Mass/Vol] 114 mg/dL Normal [facility] Comment on above: Result Comment: [place] Glucose Reference Range is dependent on time and content of last meal. Glucose of more than 200 mg/dL in a nonstressed, ambulatory subject supports the diagnosis of Diabetes Mellitus. Performed By: #### G LULS #### Point of Care testing , Glucose [Mass/Vol] 258 mg/dL Normal [facility] Comment on above: Result Comment: [place] Glucose Reference Range is dependent on time and content of last meal. Glucose of more than 200 mg/dL in a nonstressed, ambulatory subject supports the diagnosis of Diabetes Mellitus. PERFORMED BY: [place] [address] PATHOLOGIST SENIOR ANALYST DEVELOPER SHELBIE ALMONTE M.D. Performed By: #### P AB, CMP, CBC #### [address] Glucose [Mass/Vol] 148 mg/dL Normal [facility] Comment on above: Result Comment: [place] Glucose Reference Range is dependent on time and content of last meal. Glucose of more than 200 mg/dL in a nonstressed, ambulatory subject supports the diagnosis of Diabetes Mellitus. PERFORMED BY: [place] [address] PATHOLOGIST SENIOR ANALYST DEVELOPER SHELBIE ALMONTE M.D. Performed By: #### G LULS #### [facility] , [facility] SARS-CoV-2 (COVID-19) RNA BENITO+probe Ql (Unsp spec) Negative Normal Negative [facility] Comment on above: Order Comment: Healt hcare Worker?: N Result Comment: Testing for SARS-CoV-2 by RT-PCR This test was developed and its performance characteristics determined by [employer]) and validated at the [facility]. This test has not been FDA cleared [...] terminated or revoked sooner. PERFORMED BY: [facility] [address] [place] [address] PATHOLOGIST SENIOR ANALYST DEVELOPER SHELBIE ALMONTE M.D. Performed By: #### G SUPA #### Point of Care testing , COVID-19 Positive/NegativeOr dered By: Albert Swan on 03-24-2024 SARS-CoV-2 (COVID-19) N gene BENITO+probe Ql (Resp) Negative Negative [facility] Comment on above: Testing for SARS-CoV -2 by RT-PCRThis test was developed and its performance characteristics determined by [employer] and validated at the [facility]. This test has not been FDA cleared [...] 03-24-2024 Glucose [Mass/Vol] 152 mg/dL Normal [facility] Comment on above: Result Comment: [place] Glucose Reference Range is dependent on time and content of last meal. Glucose of more than 200 mg/dL in a nonstressed, ambulatory subject supports the diagnosis of Diabetes Mellitus. PERFORMED BY: [place] [address] PATHOLOGIST SENIOR ANALYST DEVELOPER SHELBIE ALMONTE M.D. Performed By: #### G LULS #### Point of Care testing , Commemt1 Glu2: Cleaned Meter Normal [facility] Comment on above: Result Comment: PERF ORMED BY: [place] [address] PATHOLOGIST SENIOR ANALYST DEVELOPER SHELBIE ALMONTE M.D. Performed By: #### G LULS #### Point of Care testing , Glucose [Mass/Vol] 117 mg/dL Normal [facility] Comment on above: Result Comment: [place] Glucose Reference Range is dependent on time and content of last meal. Glucose of more than 200 mg/dL in a nonstressed, ambulatory subject supports the diagnosis of Diabetes Mellitus. Performed By: #### G LULS #### Point of Care testing , Glucose [Mass/Vol] 149 mg/dL Normal [facility] Comment on above: Result Comment: [place] Glucose Reference Range is dependent on time and content of last meal. Glucose of more than 200 mg/dL in a nonstressed, ambulatory subject supports the diagnosis of Diabetes Mellitus. PERFORMED BY: [place] [id number] PATHOLOGIST SENIOR ANALYST DEVELOPER SHELBIE ALMONTE M.D. Performed By: #### G LULS #### Point of Care testing , Commemt1 Glu2: Cleaned Meter Normal [facility] Comment on above: Result Comment: PERF ORMED BY: [place] [address] PATHOLOGIST SENIOR ANALYST DEVELOPER SHELBIE ALMONTE M.D. Performed By: #### G LULS #### Point of Care testing , Glucose [Mass/Vol] 146 mg/dL Normal [facility] Comment on above: Result Comment: [facility] Glucose Reference Range is dependent on time and content of last meal. Glucose of more than 200 mg/dL in a nonstressed, ambulatory subject supports the diagnosis of Diabetes Mellitus. Performed By: #### G LULS #### Point of Care testing , Laboratory - Microbiology an d Antimicrobial susceptibilityOrdered By: Albert Swan on 03-24-2024 SARS-CoV-2 (COVID-19) RNA BENITO+probe Ql (Unsp spec) N/A [facility] Automated basophil %Ordered By: Glendy Calabrese on 03-23-2024 Basophils/100 WBC (Bld) 0.4 % Normal . [facility] Comment on above: Performed By: #### P AB, CMP, CBC #### [facility] [address] [place] [address] Automated basophil countOrde red By: Glendy Calabrese on 03-23-2024 Basophils (Bld) [#/Vol] 0.0 10*3/uL Normal 0.0-0.2 [facility] Comment on above: Result Comment: PERF ORMED BY: [place] [address] PATHOLOGIST SENIOR ANALYST DEVELOPER SHELBIE ALMONTE M.D. Performed By: #### P AB, CMP, CBC #### [facility] [address] [place] [address] Automated blood monocyte cou ntOrdered By: Glendy Calabrese on 03-23-2024 Monocytes (Bld) [#/Vol] 0.9 10*3/uL High 0.0-0.8 [facility] Comment on above: Performed By: #### P AB, CMP, CBC #### [address] Automated eosinophil %Ordere d By: Glendy Guanakito on 03-23-2024 Eosinophils/100 WBC (Bld) 3.3 % Normal . [facility] Comment on above: Performed By: #### P AB, CMP, CBC #### [address] Automated eosinophil countOr dered By: Glendy Guanakito on 03-23-2024 Eosinophils (Bld) [#/Vol] 0.2 10*3/uL Normal 0.0-0.45 [facility] Comment on above: Performed By: #### P AB, CMP, CBC #### [address] Automated monocyte %Ordered By: Glendy Calabrese on 03-23-2024 Monocytes/100 WBC (Bld) 12.8 % Normal . [facility] Comment on above: Performed By: #### P AB, CMP, CBC #### [address] Automated neutrophil %Ordere d By: Glendy Calabrese on 03-23-2024 Neutrophils/100 WBC (Bld) 63.1 % Normal . [facility] Comment on above: Performed By: #### P AB, CMP, CBC #### [address] Basic Metabolic Panelon 07 Creatinine Clr Calc Pharmacy 52.37 Normal [facility] Comment on above: Result Comment: PERF ORMED BY: [place] [address] PATHOLOGIST SENIOR ANALYST DEVELOPER SHELBIE ALMONTE M.D. Performed By: #### P AB, CMP, CBC #### [address] GFR/1.73 sq M.predicted MDRD (S/P/Bld) [Vol rate/Area] 52.800 mL/min/{1.73_m2} Normal [facility] Comment on above: Performed By: #### P AB, CMP, CBC #### [address] [place] [address] [place] Calcium [Mass/volume] in Ser um or PlasmaOrdered By: Glendy Calabrese on 03-23-2024 Calcium [Mass/Vol] 8.9 mg/dL Normal 8.6-10.3 [facility] Comment on above: Performed By: #### P AB, CMP, CBC #### [address] Carbon dioxide, total [Moles /volume] in Serum or PlasmaOrdered By: Glendy Calabrese on 03-23-2024 CO2 [Moles/Vol] 27.6 mmol/L Normal 21.0-31.0 [facility] Comment on above: Performed By: #### P AB, CMP, CBC #### [address] Chloride [Moles/volume] in S bhavin or PlasmaOrdered By: Glendy Calabrese on 03-23-2024 Chloride [Moles/Vol] 99 mmol/L Normal 98-107 [facility] Comment on above: Performed By: #### P AB, CMP, CBC #### [address] Complete Blood Count Auto Di ffon 03-23-2024 Mean Corpuscular HGB Conc 33.4 g/dL Normal 32.5-35.6 [facility] Comment on above: Performed By: #### P AB, CMP, CBC #### [address] NRBC% 0.1 /100{WBC} Normal 0-0.5 [facility] Comment on above: Performed By: #### P AB, CMP, CBC #### [place] [address] [place] Creatinine [Mass/volume] in Serum or PlasmaOrdered By: Glendy Calabrese on 03-23-2024 Creatinine [Mass/Vol] 1.37 mg/dL High 0.70-1.30 [facility] Comment on above: Performed By: #### P AB, CMP, CBC #### [address] [place] [address] [place] Erythrocyte distribution wid th [Ratio] by Automated countOrdered By: Glendy Calabrese on 03-23-2024 Erythrocyte distribution width (RBC) [Ratio] 13.2 % Normal 12.0-14.8 [facility] Comment on above: Performed By: #### P AB, CMP, CBC #### [facility] [address] Erythrocytes [#/volume] in B lood by Automated countOrdered By: Glendy Calabrese on 03-23-2024 RBC (Bld) [#/Vol] 2.75 10*6/uL Low 3.90-5.60 [facility] Comment on above: Performed By: #### P AB, CMP, CBC #### [address] Glucose Poct Glucometerson 0 03-23-2024 Glucose [Mass/Vol] 163 mg/dL Normal [facility] Comment on above: Result Comment: [place] Glucose Reference Range is dependent on time and content of last meal. Glucose of more than 200 mg/dL in a nonstressed, ambulatory subject supports the diagnosis of Diabetes Mellitus. PERFORMED BY: [place] [address] PATHOLOGIST SENIOR ANALYST DEVELOPER SHELBIE ALMONTE M.D. Performed By: #### P AB, CMP, CBC #### [address] Commemt1 Glu2: Cleaned Meter Normal [facility] Comment on above: Result Comment: PERF ORMED BY: [place] [address] PATHOLOGIST SENIOR ANALYST DEVELOPER SHELBIE ALMONTE M.D. Performed By: #### G LULS #### Point of Care testing , Glucose [Mass/Vol] 158 mg/dL Normal [facility] Comment on above: Result Comment: [place] Glucose Reference Range is dependent on time and content of last meal. Glucose of more than 200 mg/dL in a nonstressed, ambulatory subject supports the diagnosis of Diabetes Mellitus. Performed By: #### G LULS #### Point of Care testing , Commemt1 Glu2: Cleaned Meter Normal [facility] Comment on above: Result Comment: PERF ORMED BY: [address] [place] [id number] PATHOLOGIST SENIOR ANALYST DEVELOPER SHELBIE ALMONTE M.D. Performed By: #### G LULS #### Point of Care testing , Glucose [Mass/Vol] 162 mg/dL Normal [facility] Comment on above: Result Comment: [place] Glucose Reference Range is dependent on time and content of last meal. Glucose of more than 200 mg/dL in a nonstressed, ambulatory subject supports the diagnosis of Diabetes Mellitus. Performed By: #### G LULS #### Point of Care testing , Glucose [Mass/Vol] 129 mg/dL Normal [facility] Comment on above: Result Comment: [place] Glucose Reference Range is dependent on time and content of last meal. Glucose of more than 200 mg/dL in a nonstressed, ambulatory subject supports the diagnosis of Diabetes Mellitus. PERFORMED BY: [address] [place] [address] PATHOLOGIST SENIOR ANALYST DEVELOPER SHELBIE ALMONTE M.D. Performed By: #### G LULS #### Point of Care testing , Glucose [Mass/Vol] 122 mg/dL Normal [facility] Comment on above: Result Comment: [place] Glucose Reference Range is dependent on time and content of last meal. Glucose of more than 200 mg/dL in a nonstressed, ambulatory subject supports the diagnosis of Diabetes Mellitus. PERFORMED BY: [address] [place] [address] PATHOLOGIST SENIOR ANALYST DEVELOPER SHELBIE ALMONTE M.D. Performed By: #### G LULS #### Point of Care testing , Glucose [Mass/volume] in Ser um or PlasmaOrdered By: Glendy Calabrese on 03-23-2024 Glucose [Mass/Vol] 109 mg/dL High 70-100 [facility] Comment on above: ADA recommended refe rence rangeRandom Glucose Reference Range is dependent on time and content of last meal. Glucose of more than 200 mg/dL in a nonstressed, ambulatory subject supports the diagnosis of Diabetes Mellitus. Result Comment: [place] Glucose Reference Range is dependent on time and content of last meal. Glucose of more than 200 mg/dL in a nonstressed, ambulatory subject supports the diagnosis of Diabetes Mellitus. ADA recommended reference range Performed By: #### P AB, CMP, CBC #### [facility] [address] Hematocrit [Volume Fraction] of Blood by Automated countOrdered By: Glendy Calabrese on 03-23-2024 Hematocrit (Bld) [Volume fraction] 28.1 % Low 38.8-50.0 [facility] Comment on above: Performed By: #### P AB, CMP, CBC #### [facility] [address] Hemoglobin [Mass/volume] in BloodOrdered By: Glendy Calabrese on 03-23-2024 Hemoglobin (Bld) [Mass/Vol] 9.4 g/dL Low 13.0-17.0 [facility] Comment on above: Performed By: #### P AB, CMP, CBC #### [facility] [address] Leukocytes [#/volume] correc nadine for nucleated erythrocytes in Blood by Automated counOrdered By: Glendy Calabrese on 03-23-2024 WBC corrected for nucl RBC Auto (Bld) [#/Vol] 7.2 10*3/uL 4.1-10.5 [facility] Leukocytes [#/volume] in Blo od by Automated countOrdered By: Glendy Calabrese on 03-23-2024 WBC (Bld) [#/Vol] 7.2 10*3/uL Normal 4.1-10.5 [facility] Comment on above: Performed By: #### P AB, CMP, CBC #### [place] [address] [place] Lymphocytes [#/volume] in Bl ood by Automated countOrdered By: Glendy Calabrese on 03-23-2024 Lymphocytes (Bld) [#/Vol] 1.5 10*3/uL Normal 1.00-4.8 [facility] Comment on above: Performed By: #### P AB, CMP, CBC #### [address] Lymphocytes/100 leukocytes i n Blood by Automated countOrdered By: Glendy Calabrese on 03-23-2024 Lymphocytes/100 WBC (Bld) 20.4 % Normal . [facility] Comment on above: Performed By: #### P AB, CMP, CBC #### [address] MCH [Entitic mass] by Automa nadine countOrdered By: Glendy Calabrese on 03-23-2024 MCH (RBC) [Entitic mass] 34.1 pg Normal 27.5-35.2 [facility] Comment on above: Performed By: #### P AB, CMP, CBC #### [address] MCHC Auto (RBC) [Mass/Vol]Or dered By: Glendy Calabrese on 03-23-2024 MCHC (RBC) [Mass/Vol] 33.4 g/dL 32.5-35.6 [facility] MCV [Entitic volume] by Auto mated countOrdered By: Glendy Calabrese on 03-23-2024 MCV (RBC) [Entitic vol] 102.1 fL High 83.5-101 [facility] Comment on above: Performed By: #### P AB, CMP, CBC #### [address] Neutrophils [#/volume] in Bl ood by Automated countOrdered By: Glendy Calabrese on 03-23-2024 Neutrophils (Bld) [#/Vol] 4.6 10*3/uL Normal 1.8-7.7 [facility] Comment on above: Performed By: #### P AB, CMP, CBC #### [address] No Panel InformationOrdered By: Glendy Calabrese on 03-23-2024 Estimated GFR (CKD-EPI) 52.800 mL/Min [facility] Creatinine Clearance (Chem 52.37 [facility] Nucleated erythrocytes [Pres ence] in Blood by Automated countOrdered By: Glendy Calabrese on 03-23-2024 Nucleated RBC Auto Ql (Bld) 0.1 /100{WBC} 0-0.5 [facility] Platelet mean volume [Entiti c volume] in Blood by Automated countOrdered By: Glendy Calabrese on 03-23-2024 Platelet mean volume (Bld) [Entitic vol] 8.0 fL Normal 6.6-10.1 [facility] Comment on above: Performed By: #### P AB, CMP, CBC #### [facility] [address] [place] [address] [place] Platelets [#/volume] in Bloo d by Automated countOrdered By: Glendy Calabrese on 03-23-2024 Platelets (Bld) [#/Vol] 242 10*3/uL Normal 150-450 [facility] Comment on above: Performed By: #### P AB, CMP, CBC #### [facility] [address] [place] [address] [place] Potassium [Moles/volume] in Serum or PlasmaOrdered By: Glendy Calabrese on 03-23-2024 Potassium [Moles/Vol] 4.3 mmol/L Normal 3.5-5.1 [facility] Comment on above: Performed By: #### P AB, CMP, CBC #### [facility] [address] Serum or plasma anion gap de terminationOrdered By: Glendy Calabrese on 03-23-2024 Anion gap [Moles/Vol] 11.7 mmol/L Normal 6.0-15.0 [facility] Comment on above: Performed By: #### P AB, CMP, CBC #### [facility] [address] [place] [address] [place] Sodium [Moles/volume] in Ser um or PlasmaOrdered By: Glendy Calabrese on 03-23-2024 Sodium [Moles/Vol] 134 mmol/L Low 136-145 [facility] Comment on above: Performed By: #### P AB, CMP, CBC #### [facility] [address] [place] [address] [place] Urea nitrogen [Mass/volume] in Serum or PlasmaOrdered By: Glendy Calabrese on 03-23-2024 Urea nitrogen [Mass/Vol] 20 mg/dL Normal 03-27 [facility] Comment on above: Performed By: #### P AB, CMP, CBC #### [facility] [address] [place] [address] [place] Glucose Poct Glucometerson 0 03-22-2024 Glucose [Mass/Vol] 210 mg/dL Normal [facility] Comment on above: Result Comment: [place] Glucose Reference Range is dependent on time and content of last meal. Glucose of more than 200 mg/dL in a nonstressed, ambulatory subject supports the diagnosis of Diabetes Mellitus. PERFORMED BY: [place] [address] PATHOLOGIST SENIOR ANALYST DEVELOPER SHELBIE ALMONTE M.D. Performed By: #### G LULS #### Point of Care testing , Glucose [Mass/Vol] 116 mg/dL Normal [facility] Comment on above: Result Comment: [place] Glucose Reference Range is dependent on time and content of last meal. Glucose of more than 200 mg/dL in a nonstressed, ambulatory subject supports the diagnosis of Diabetes Mellitus. PERFORMED BY: [place] [address] PATHOLOGIST SENIOR ANALYST DEVELOPER SHELBIE ALMONTE M.D. Performed By: #### G LULS #### Point of Care testing , Glucose [Mass/Vol] 126 mg/dL Normal [facility] Comment on above: Result Comment: [place] Glucose Reference Range is dependent on time and content of last meal. Glucose of more than 200 mg/dL in a nonstressed, ambulatory subject supports the diagnosis of Diabetes Mellitus. PERFORMED BY: [place] [address] PATHOLOGIST SENIOR ANALYST DEVELOPER SHELBIE ALMONTE M.D. Performed By: #### G LULS #### Point of Care testing , Glucose [Mass/Vol] 125 mg/dL Normal [facility] Comment on above: Result Comment: [place] Glucose Reference Range is dependent on time and content of last meal. Glucose of more than 200 mg/dL in a nonstressed, ambulatory subject supports the diagnosis of Diabetes Mellitus. PERFORMED BY: [address] [place] [address] PATHOLOGIST SENIOR ANALYST DEVELOPER SHELBIE ALMONTE M.D. Performed By: #### G LULS #### Point of Care testing , Glucose Poct Glucometerson 0 03-21-2024 Glucose [Mass/Vol] 222 mg/dL Normal [facility] Comment on above: Result Comment: [facility] Glucose Reference Range is dependent on time and content of last meal. Glucose of more than 200 mg/dL in a nonstressed, ambulatory subject supports the diagnosis of Diabetes Mellitus. PERFORMED BY: [address] [place] [address] PATHOLOGIST SENIOR ANALYST DEVELOPER SHELBIE ALMONTE M.D. Performed By: #### G LULS #### Point of Care testing , Commemt1 Glu2: Cleaned Meter Normal [facility] Comment on above: Result Comment: PERF ORMED BY: [address] [place] [address] PATHOLOGIST SENIOR ANALYST DEVELOPER SHELBIE ALMONTE M.D. Performed By: #### G LULS #### Point of Care testing , Glucose [Mass/Vol] 117 mg/dL Normal [facility] Comment on above: Result Comment: [facility] Glucose Reference Range is dependent on time and content of last meal. Glucose of more than 200 mg/dL in a nonstressed, ambulatory subject supports the diagnosis of Diabetes Mellitus. Performed By: #### G LULS #### Point of Care testing , Commemt1 Glu2: Cleaned Meter Normal [facility] Comment on above: Result Comment: PERF ORMED BY: [address] [place] [address] PATHOLOGIST SENIOR ANALYST DEVELOPER SHELBIE ALMONTE M.D. Performed By: #### G LULS #### Point of Care testing , Glucose [Mass/Vol] 178 mg/dL Normal [facility] Comment on above: Result Comment: [place] [facility] Glucose Reference Range is dependent on time and content of last meal. Glucose of more than 200 mg/dL in a nonstressed, ambulatory subject supports the diagnosis of Diabetes Mellitus. Performed By: #### G SUPA #### Point of Care testing , Glucose [Mass/Vol] 112 mg/dL Normal [facility] Comment on above: Result Comment: [place] [facility] Glucose Reference Range is dependent on time and content of last meal. Glucose of more than 200 mg/dL in a nonstressed, ambulatory subject supports the diagnosis of Diabetes Mellitus. PERFORMED BY: [place] [address] PATHOLOGIST SENIOR ANALYST DEVELOPER SHELBIE ALMONTE M.D. Performed By: #### P AB, CMP, CBC #### [address] Basic Metabolic Panelon 03-03 Anion gap [Moles/Vol] Not performed Normal 6.0-15.0 [facility] Comment on above: Performed By: #### P AB, CMP, CBC #### [address] Calcium [Mass/Vol] 8.7 mg/dL Normal 8.6-10.3 [facility] Comment on above: Performed By: #### P AB, CMP, CBC #### [address] Chloride [Moles/Vol] 101 mmol/L Normal 98-107 [facility] Comment on above: Performed By: #### P AB, CMP, CBC #### [address] CO2 [Moles/Vol] 26.8 mmol/L Normal 21.0-31.0 [facility] Comment on above: Performed By: #### P AB, CMP, CBC #### [address] Creatinine [Mass/Vol] 1.50 mg/dL High 0.70-1.30 [facility] Comment on above: Performed By: #### P AB, CMP, CBC #### [address] [place] [address] [place] Creatinine Clr Calc Pharmacy 47.83 Normal [facility] Comment on above: Result Comment: PERF ORMED BY: [place] [address] PATHOLOGIST SENIOR ANALYST DEVELOPER SHELBIE ALMONTE M.D. Performed By: #### P AB, CMP, CBC #### [address] GFR/1.73 sq M.predicted MDRD (S/P/Bld) [Vol rate/Area] 47.358 mL/min/{1.73_m2} Normal [facility] Comment on above: Performed By: #### P AB, CMP, CBC #### [address] Glucose [Mass/Vol] 97 mg/dL Normal 70-100 [facility] Comment on above: Result Comment: [facility] Glucose Reference Range is dependent on time and content of last meal. Glucose of more than 200 mg/dL in a nonstressed, ambulatory subject supports the diagnosis of Diabetes Mellitus. ADA recommended reference range Performed By: #### P AB, CMP, CBC #### [address] Potassium Normal 3.5-5.1 [facility] Comment on above: Result Comment: Spec imen hemolyzed, redraw requested Performed By: #### P AB, CMP, CBC #### [address] Sodium [Moles/Vol] 135 mmol/L Low 136-145 [facility] Comment on above: Performed By: #### P AB, CMP, CBC #### [address] Urea nitrogen [Mass/Vol] 25 mg/dL Normal 7-25 [facility] Comment on above: Performed By: #### P AB, CMP, CBC #### [address] Complete Blood Count Auto Di ffon 03-20-2024 Basophils (Bld) [#/Vol] 0.0 10*3/uL Normal 0.0-0.2 [facility] Comment on above: Result Comment: PERF ORMED BY: [place] [address] PATHOLOGIST SENIOR ANALYST DEVELOPER SHELBIE ALMONTE M.D. Performed By: #### P AB, CMP, CBC #### [address] Basophils/100 WBC (Bld) 0.5 % Normal . [facility] Comment on above: Performed By: #### P AB, CMP, CBC #### [place] [address] [place] Eosinophils (Bld) [#/Vol] 0.2 10*3/uL Normal 0.0-0.45 [facility] Comment on above: Performed By: #### P AB, CMP, CBC #### [place] [address] [place] Eosinophils/100 WBC (Bld) 2.9 % Normal . [facility] Comment on above: Performed By: #### P AB, CMP, CBC #### [place] [address] [place] Erythrocyte distribution width (RBC) [Ratio] 13.3 % Normal 12.0-14.8 [facility] Comment on above: Performed By: #### P AB, CMP, CBC #### [address] Hematocrit (Bld) [Volume fraction] 27.7 % Low 38.8-50.0 [facility] Comment on above: Performed By: #### P AB, CMP, CBC #### [place] [address] [place] Hemoglobin (Bld) [Mass/Vol] 9.3 g/dL Low 13.0-17.0 [facility] Comment on above: Performed By: #### P AB, CMP, CBC #### [place] [address] [place] Lymphocytes (Bld) [#/Vol] 2.1 10*3/uL Normal 1.00-4.8 [facility] Comment on above: Performed By: #### P AB, CMP, CBC #### [address] Lymphocytes/100 WBC (Bld) 25.9 % Normal . [facility] Comment on above: Performed By: #### P AB, CMP, CBC #### [address] MCH (RBC) [Entitic mass] 35.1 pg Normal 27.5-35.2 [facility] Comment on above: Performed By: #### P AB, CMP, CBC #### [address] MCV (RBC) [Entitic vol] 104.1 fL High 83.5-101 [facility] Comment on above: Performed By: #### P AB, CMP, CBC #### [address] Mean Corpuscular HGB Conc 33.7 g/dL Normal 32.5-35.6 [facility] Comment on above: Performed By: #### P AB, CMP, CBC #### [address] Monocytes (Bld) [#/Vol] 1.1 10*3/uL High 0.0-0.8 [facility] Comment on above: Performed By: #### P AB, CMP, CBC #### [address] Monocytes/100 WBC (Bld) 13.5 % Normal . [facility] Comment on above: Performed By: #### P AB, CMP, CBC #### [address] Neutrophils (Bld) [#/Vol] 4.7 10*3/uL Normal 1.8-7.7 [facility] Comment on above: Performed By: #### P AB, CMP, CBC #### [address] Neutrophils/100 WBC (Bld) 57.2 % Normal . [facility] Comment on above: Performed By: #### P AB, CMP, CBC #### [address] NRBC% 0.1 /100{WBC} Normal 0-0.5 [facility] Comment on above: Performed By: #### P AB, CMP, CBC #### [address] Platelet mean volume (Bld) [Entitic vol] 8.5 fL Normal 6.6-10.1 [facility] Comment on above: Performed By: #### P AB, CMP, CBC #### [address] Platelets (Bld) [#/Vol] 244 10*3/uL Normal 150-450 [facility] Comment on above: Performed By: #### P AB, CMP, CBC #### [address] RBC (Bld) [#/Vol] 2.66 10*6/uL Low 3.90-5.60 [facility] Comment on above: Performed By: #### P AB, CMP, CBC #### [address] WBC (Bld) [#/Vol] 8.1 10*3/uL Normal 4.1-10.5 [facility] Comment on above: Performed By: #### P AB, CMP, CBC #### [address] Glucose Poct Glucometerson 0 03-20-2024 Commemt1 Glu2: Cleaned Meter Normal [facility] Comment on above: Performed By: #### G LULS #### Point of Care testing , Commemt2 WILL NOTIFY DR/RN Normal [facility] Comment on above: Result Comment: PERF ORMED BY: [place] [address] PATHOLOGIST SENIOR ANALYST DEVELOPER SHELBIE ALMONTE M.D. Performed By: #### G LULS #### Point of Care testing , Glucose [Mass/Vol] 159 mg/dL Normal [facility] Comment on above: Result Comment: [place] [facility] Glucose Reference Range is dependent on time and content of last meal. Glucose of more than 200 mg/dL in a nonstressed, ambulatory subject supports the diagnosis of Diabetes Mellitus. Performed By: #### G LULS #### Point of Care testing , Glucose [Mass/Vol] 152 mg/dL Normal [facility] Comment on above: Result Comment: [place] [facility] Glucose Reference Range is dependent on time and content of last meal. Glucose of more than 200 mg/dL in a nonstressed, ambulatory subject supports the diagnosis of Diabetes Mellitus. PERFORMED BY: [place] [address] PATHOLOGIST SENIOR ANALYST DEVELOPER SHELBIE ALMONTE M.D. Performed By: #### P AB, CMP, CBC #### [address] Glucose [Mass/Vol] 124 mg/dL Normal [facility] Comment on above: Result Comment: [place] [facility] Glucose Reference Range is dependent on time and content of last meal. Glucose of more than 200 mg/dL in a nonstressed, ambulatory subject supports the diagnosis of Diabetes Mellitus. PERFORMED BY: [place] [address] PATHOLOGIST SENIOR ANALYST DEVELOPER SHELBIE ALMONTE M.D. Performed By: #### G LULS #### Point of Care testing , Glucose [Mass/Vol] 118 mg/dL Normal [facility] Comment on above: Result Comment: [place] [facility] Glucose Reference Range is dependent on time and content of last meal. Glucose of more than 200 mg/dL in a nonstressed, ambulatory subject supports the diagnosis of Diabetes Mellitus. PERFORMED BY: [place] [phone] PATHOLOGIST SENIOR ANALYST DEVELOPER SHELBIE ALMONTE M.D. Performed By: #### G LULS #### Point of Care testing , No Panel InformationOrdered By: Albert Swan on 03-20-2024 Bedside Glucose #[address]/rn [facility] Redraw Potassiumon Potassium [Moles/Vol] 4.7 mmol/L Normal 3.5-5.1 [facility] Comment on above: Order Comment: [address] hemolyzed, redraw requested Result Comment: PERF ORMED BY: [place] [address] PATHOLOGIST SENIOR ANALYST DEVELOPER SHELBIE ALMONTE M.D. Performed By: #### P AB, CMP, CBC #### [address] Basic Metabolic Panelon 03-03 Anion gap [Moles/Vol] 11.0 mmol/L Normal 6.0-15.0 [facility] Comment on above: Performed By: #### C BC, BMP #### [address] Calcium [Mass/Vol] 8.8 mg/dL Normal 8.6-10.3 [facility] Comment on above: Performed By: #### C BC, BMP #### [address] Chloride [Moles/Vol] 101 mmol/L Normal 98-107 [facility] Comment on above: Performed By: #### C BC, BMP #### [address] CO2 [Moles/Vol] 28.4 mmol/L Normal 21.0-31.0 [facility] Comment on above: Performed By: #### C BC, BMP #### [address] Creatinine [Mass/Vol] 1.48 mg/dL High 0.70-1.30 [facility] Comment on above: Performed By: #### C BC, BMP #### [address] Creatinine Clr Calc Pharmacy 48.48 Normal [facility] Comment on above: Result Comment: PERF ORMED BY: [place] [address] PATHOLOGIST SENIOR ANALYST DEVELOPER SHELBIE ALMONTE M.D. Performed By: #### C BC, BMP #### [place] [address] [place] GFR/1.73 sq M.predicted MDRD (S/P/Bld) [Vol rate/Area] 48.126 mL/min/{1.73_m2} Normal [facility] Comment on above: Performed By: #### C BC, BMP #### [address] Glucose [Mass/Vol] 108 mg/dL High 70-100 [facility] Comment on above: Result Comment: [facility] Glucose Reference Range is dependent on time and content of last meal. Glucose of more than 200 mg/dL in a nonstressed, ambulatory subject supports the diagnosis of Diabetes Mellitus. ADA recommended reference range Performed By: #### C BC, BMP #### [address] Potassium [Moles/Vol] 4.4 mmol/L Normal 3.5-5.1 [facility] Comment on above: Performed By: #### C BC, BMP #### [place] [address] [place] Sodium [Moles/Vol] 136 mmol/L Normal 136-145 [facility] Comment on above: Performed By: #### C BC, BMP #### [address] Urea nitrogen [Mass/Vol] 24 mg/dL Normal 7-25 [facility] Comment on above: Performed By: #### C BC, BMP #### [address] Complete Blood Count Auto Di ffon 03-19-2024 Basophils (Bld) [#/Vol] 0.0 10*3/uL Normal 0.0-0.2 [facility] Comment on above: Result Comment: PERF ORMED BY: [place] [address] PATHOLOGIST SENIOR ANALYST DEVELOPER SHELBIE ALMONTE M.D. Performed By: #### P AB, CMP, CBC #### [facility] [address] Basophils/100 WBC (Bld) 0.4 % Normal . [facility] Comment on above: Performed By: #### P AB, CMP, CBC #### [address] Eosinophils (Bld) [#/Vol] 0.1 10*3/uL Normal 0.0-0.45 [facility] Comment on above: Performed By: #### P AB, CMP, CBC #### [address] Eosinophils/100 WBC (Bld) 1.9 % Normal . [facility] Comment on above: Performed By: #### P AB, CMP, CBC #### [address] Erythrocyte distribution width (RBC) [Ratio] 13.2 % Normal 12.0-14.8 [facility] Comment on above: Performed By: #### P AB, CMP, CBC #### [address] Hematocrit (Bld) [Volume fraction] 28.2 % Low 38.8-50.0 [facility] Comment on above: Performed By: #### P AB, CMP, CBC #### [address] Hemoglobin (Bld) [Mass/Vol] 9.5 g/dL Low 13.0-17.0 [facility] Comment on above: Performed By: #### P AB, CMP, CBC #### [place] [address] [place] Lymphocytes (Bld) [#/Vol] 1.3 10*3/uL Normal 1.00-4.8 [facility] Comment on above: Performed By: #### P AB, CMP, CBC #### [place] [address] [place] Lymphocytes/100 WBC (Bld) 17.6 % Normal . [facility] Comment on above: Performed By: #### P AB, CMP, CBC #### [address] MCH (RBC) [Entitic mass] 34.8 pg Normal 27.5-35.2 [facility] Comment on above: Performed By: #### P AB, CMP, CBC #### [address] MCV (RBC) [Entitic vol] 103.1 fL High 83.5-101 T [facility] Comment on above: Performed By: #### P AB, CMP, CBC #### [address] Mean Corpuscular HGB Conc 33.8 g/dL Normal 32.5-35.6 [facility] Comment on above: Performed By: #### P AB, CMP, CBC #### [address] Monocytes (Bld) [#/Vol] 1.0 10*3/uL High 0.0-0.8 [facility] Comment on above: Performed By: #### P AB, CMP, CBC #### [address] Monocytes/100 WBC (Bld) 12.8 % Normal . [facility] Comment on above: Performed By: #### P AB, CMP, CBC #### [address] Neutrophils (Bld) [#/Vol] 5.1 10*3/uL Normal 1.8-7.7 [facility] Comment on above: Performed By: #### P AB, CMP, CBC #### [address] Neutrophils/100 WBC (Bld) 67.3 % Normal . [facility] Comment on above: Performed By: #### P AB, CMP, CBC #### [address] NRBC% 0.0 /100{WBC} Normal 0-0.5 [facility] Comment on above: Performed By: #### P AB, CMP, CBC #### [facility] [address] Platelet mean volume (Bld) [Entitic vol] 8.6 fL Normal 6.6-10.1 [facility] Comment on above: Performed By: #### P AB, CMP, CBC #### [address] Platelets (Bld) [#/Vol] 201 10*3/uL Normal 150-450 [facility] Comment on above: Performed By: #### P AB, CMP, CBC #### [address] RBC (Bld) [#/Vol] 2.73 10*6/uL Low 3.90-5.60 [facility] Comment on above: Performed By: #### P AB, CMP, CBC #### [address] WBC (Bld) [#/Vol] 7.7 10*3/uL Normal 4.1-10.5 [facility] Comment on above: Performed By: #### P AB, CMP, CBC #### [address] Glucose Poct Glucometerson 0 03-19-2024 Glucose [Mass/Vol] 231 mg/dL Normal [facility] Comment on above: Result Comment: [place] Glucose Reference Range is dependent on time and content of last meal. Glucose of more than 200 mg/dL in a nonstressed, ambulatory subject supports the diagnosis of Diabetes Mellitus. PERFORMED BY: [place] [address] PATHOLOGIST SENIOR ANALYST DEVELOPER SHELBIE ALMONTE M.D. Performed By: #### G LULS #### Point of Care testing , Glucose [Mass/Vol] 123 mg/dL Normal [facility] Comment on above: Result Comment: [place] Glucose Reference Range is dependent on time and content of last meal. Glucose of more than 200 mg/dL in a nonstressed, ambulatory subject supports the diagnosis of Diabetes Mellitus. PERFORMED BY: [place] [id number] PATHOLOGIST SENIOR ANALYST DEVELOPER SHELBIE ALMONTE M.D. Performed By: #### G LULS #### Point of Care testing , Glucose [Mass/Vol] 139 mg/dL Normal [facility] Comment on above: Result Comment: [place] Glucose Reference Range is dependent on time and content of last meal. Glucose of more than 200 mg/dL in a nonstressed, ambulatory subject supports the diagnosis of Diabetes Mellitus. PERFORMED BY: [place] [address] PATHOLOGIST SENIOR ANALYST DEVELOPER SHELBIE ALMONTE M.D. Performed By: #### G LULS #### Point of Care testing , Glucose [Mass/Vol] 116 mg/dL Normal [facility] Comment on above: Result Comment: [facility] Glucose Reference Range is dependent on time and content of last meal. Glucose of more than 200 mg/dL in a nonstressed, ambulatory subject supports the diagnosis of Diabetes Mellitus. PERFORMED BY: [place] [id number] PATHOLOGIST SENIOR ANALYST DEVELOPER SHELBIE ALMONTE M.D. Performed By: #### G LULS #### Point of Care testing , Bacteria [Presence] in Urine by AutomatedOrdered By: Albert Swan on 03-18-2024 Bacteria Auto Ql (U) 4+ [HPF] High None Seen [facility] Bilirubin Test strip Ql (U)O rdered By: Albert Swan on 03-18-2024 Bilirubin Ql (U) Negative Negative [facility] Color of Urine by AutoOrdere d By: Albert Swan on 03-18-2024 Color (U) Yellow Normal Yellow [facility] Comment on above: Order Comment: Name Collection Type:: Clean-Voided Midstream Performed By: #### P AB, CMP, CBC #### [facility] [address] [place] [address] [facility] Dipstick and Microscopicon 0 03-18-2024 Bacteria,Urine 4+ High None Seen [facility] Comment on above: Order Comment: Name Collection Type:: Clean-Voided Midstream Performed By: #### P AB, CMP, CBC #### [facility] [address] [place] [address] [place] Bilirubin,Urine Negative Normal Negative [facility] Comment on above: Order Comment: Name Collection Type:: Clean-Voided Midstream Performed By: #### P AB, CMP, CBC #### [facility] [address] Glucose Ql (U) Normal Normal Normal [facility] Comment on above: Order Comment: Name Collection Type:: Clean-Voided Midstream Performed By: #### P AB, CMP, CBC #### [place] [address] [place] Hyaline Casts,Urine 9-19 High 0-8 [facility] Comment on above: Order Comment: Name Collection Type:: Clean-Voided Midstream Result Comment: PERF ORMED BY: [place] [address] PATHOLOGIST SENIOR ANALYST DEVELOPER SHELBIE ALMONTE M.D. Performed By: #### P AB, CMP, CBC #### [place] [address] [place] Nitrite,Urine Negative Normal Negative [facility] Comment on above: Order Comment: Name Collection Type:: Clean-Voided Midstream Performed By: #### P AB, CMP, CBC #### [address] Occult Blood,Urine 1+ High Negative [facility] Comment on above: Order Comment: Name Collection Type:: Clean-Voided Midstream Result Comment: PERF ORMED BY: [place] [address] PATHOLOGIST SENIOR ANALYST DEVELOPER SHELBIE ALMONTE M.D. Performed By: #### P AB, CMP, CBC #### [place] [address] [place] RBC,Urine 5-9 High 0-4 [facility] Comment on above: Order Comment: Name Collection Type:: Clean-Voided Midstream Performed By: #### P AB, CMP, CBC #### [address] Specificy [place],Urine 1.018 Normal 1.00 1-1.03 0 [facility] Comment on above: Order Comment: Name Collection Type:: Clean-Voided Midstream Performed By: #### P AB, CMP, CBC #### [address] Squamous Epithelial Cell,Urine 1-2 Normal 0-2 [facility] Comment on above: Order Comment: Name Collection Type:: Clean-Voided Midstream Performed By: #### P AB, CMP, CBC #### [address] Triple Phosphate Crystal,Urine Rare Normal [facility] Comment on above: Order Comment: Name Collection Type:: Clean-Voided Midstream Performed By: #### P AB, CMP, CBC #### [address] Urobilinogen,Urine Normal Normal Normal [facility] Comment on above: Order Comment: Name Collection Type:: Clean-Voided Midstream Performed By: #### P AB, CMP, CBC #### [address] WBC CLUMP, Urine Many High None Seen [facility] Comment on above: Order Comment: Name Collection Type:: Clean-Voided Midstream Performed By: #### P AB, CMP, CBC #### [address] WBC,Urine Innumerable High 0-4 [facility] Comment on above: Order Comment: Name Collection Type:: Clean-Voided Midstream Performed By: #### P AB, CMP, CBC #### [address] Epithelial cells.squamous [# /area] in Urine sediment by Automated countOrdered By: Albert Swan on 03-18-2024 Epithelial cells.squamous Auto (Urine sed) [#/Area] 1-2 [HPF] 0-2 [facility] Erythrocytes [#/area] in Uri ne sediment by Automated countOrdered By: Albert Swan on 03-18-2024 RBC Auto (Urine sed) [#/Area] 5-9 [HPF] High 0-4 [facility] Glucose Poct Glucometerson 0 03-18-2024 Commemt1 Glu2: Cleaned Meter Normal [facility] Comment on above: Result Comment: PERF ORMED BY: [place] [address] PATHOLOGIST SENIOR ANALYST DEVELOPER SHELBIE ALMONTE M.D. Performed By: #### G LULS #### Point of Care testing , Glucose [Mass/Vol] 199 mg/dL Normal [facility] Comment on above: Result Comment: [place] Glucose Reference Range is dependent on time and content of last meal. Glucose of more than 200 mg/dL in a nonstressed, ambulatory subject supports the diagnosis of Diabetes Mellitus. Performed By: #### G LULS #### Point of Care testing , Glucose [Mass/Vol] 164 mg/dL Normal [facility] Comment on above: Result Comment: [place] Glucose Reference Range is dependent on time and content of last meal. Glucose of more than 200 mg/dL in a nonstressed, ambulatory subject supports the diagnosis of Diabetes Mellitus. PERFORMED BY: [place] [address] PATHOLOGIST SENIOR ANALYST DEVELOPER SHELBIE ALMONTE M.D. Performed By: #### G LULS #### Point of Care testing , Glucose [Mass/Vol] 171 mg/dL Normal [facility] Comment on above: Result Comment: [place] Glucose Reference Range is dependent on time and content of last meal. Glucose of more than 200 mg/dL in a nonstressed, ambulatory subject supports the diagnosis of Diabetes Mellitus. PERFORMED BY: [place] [address] PATHOLOGIST SENIOR ANALYST DEVELOPER SHELBIE ALMONTE M.D. Performed By: #### P AB, CMP, CBC #### [address] Glucose [Mass/Vol] 142 mg/dL Normal [facility] Comment on above: Result Comment: [place] Glucose Reference Range is dependent on time and content of last meal. Glucose of more than 200 mg/dL in a nonstressed, ambulatory subject supports the diagnosis of Diabetes Mellitus. PERFORMED BY: [place] [address] PATHOLOGIST SENIOR ANALYST DEVELOPER SHELBIE ALMONTE M.D. Performed By: #### P AB, CMP, CBC #### [facility] [address] [place] [address] Glucose [Mass/volume] in Uri ne by Test stripOrdered By: Albert Swan on 03-18-2024 Glucose Test strip (U) [Mass/Vol] Normal mg/dL Normal [facility] Hemoglobin Test strip Ql (U) Ordered By: Albert Swan on 03-18-2024 Hemoglobin Ql (U) 1+ High Negative [facility] Hyaline casts [#/area] in Ur ine sediment by Automated countOrdered By: Albert Swan on 03-18-2024 Hyaline casts Auto (Urine sed) [#/Area] 9-19 [LPF] High 0-8 [facility] [facility] Ket[facility] [Presence] in Urine by Test stripOrdered By: Albert Swan on 03-18-2024 Ketones Ql (U) Negative Normal Negative [facility] Comment on above: Order Comment: Name Collection Type:: Clean-Voided Midstream Performed By: #### P AB, CMP, CBC #### [facility] [address] [place] [address] [place] Leukocyte clumps [Presence] in Urine by AutomatedOrdered By: Albert Swan on 03-18-2024 Leukocyte clumps Auto Ql (U) Many [LPF] High None Seen [facility] Leukocyte esterase [Presence ] in Urine by Test stripOrdered By: Albert Swan on 03-18-2024 Leukocyte esterase Test strip Ql (U) 4+ High Negative [facility] Comment on above: Order Comment: Name Collection Type:: Clean-Voided Midstream Performed By: #### P AB, CMP, CBC #### [facility] [address] [place] [address] [place] Leukocytes [#/area] in Urine sediment by Automated countOrdered By: Albert Swan on 03-18-2024 WBC Auto (Urine sed) [#/Area] Innumerable [HPF] High 0-4 [facility] Nitrite Test strip Ql (U)Ord ered By: Albert Swan on 03-18-2024 Nitrite Ql (U) Negative Negative [facility] Protein [Mass/volume] in Uri ne by Test stripOrdered By: Albert Swan on 03-18-2024 Protein (U) [Mass/Vol] 30 mg/dL High Negative [facility] Comment on above: Order Comment: Name Collection Type:: Clean-Voided Midstream Performed By: #### P AB, CMP, CBC #### [facility] [address] Specific gravity Test strip (U) [Rel density]Ordered By: Albert Swan on 03-18-2024 Specific gravity (U) [Rel density] 1.018 1.001-1.03 0 [facility] Triple phosphate crystals [P resence] in Urine sediment by Computer assisted methodOrdered By: Albert Swan on 03-18-2024 Triple phosphate crystals [Presence] in Urine sediment by Computer assisted method Rare [HPF] [facility] Urine Cultureon 03-18-2024 Bacteria identified Cx Nom (U) ORGANISM: Proteus mirabilis (O:PROMIR) [place] Count >100,000 Aerobic BENJAMIN Charge (NMIC56) SUSCEPTIBILITY [...] RESISTANT TO ALL B-LACTAM DRUGS. PERFORMED BY: [place] [address] PATHOLOGIST SENIOR ANALYST DEVELOPER SHELBIE ALMONTE M.D. Normal [facility] Comment on above: Performed By: #### P AB, CMP, CBC #### [address] Urine appearanceOrdered By: Albert Swan on 03-18-2024 Appearance (U) Cloudy Critically abnormal Clear [facility] Comment on above: Order Comment: Name Collection Type:: Clean-Voided Midstream Performed By: #### P AB, CMP, CBC #### [address] Urine culture routineOrdered By: Albert Swan on 03-18-2024 Bacteria identified Cx Nom (U) Proteus mirabilis Abnormal [facility] Urobilinogen Test strip (U) [Mass/Vol]Ordered By: Albert Swan on 03-18-2024 Urobilinogen (U) [Mass/Vol] Normal mg/dL Normal [facility] pH of Urine by Test stripOrd ered By: Albert Swan on 03-18-2024 pH (U) 7.5 [pH] Normal 5.0-9.0 [facility] Comment on above: Order Comment: Name Collection Type:: Clean-Voided Midstream Performed By: #### P AB, CMP, CBC #### [address] Alanine aminotransferase [En zymatic activity/volume] in Serum or PlasmaOrdered By: Albert Swan on 03-17-2024 ALT [Catalytic activity/Vol] 35 U/L Normal 7-52 [facility] Comment on above: Performed By: #### P AB, CMP, CBC #### [facility] [address] Albumin [Mass/volume] in Ser um or Plasma by Bromocresol green (BCG) dye binding methoOrdered By: Albert Swan on 03-17-2024 Albumin BCG dye [Mass/Vol] 3.3 g/dL Low 3.5-5.7 [facility] Alkaline phosphatase [Enzyma tic activity/volume] in Serum or PlasmaOrdered By: Albert Swan on 03-17-2024 ALP [Catalytic activity/Vol] 76 U/L Normal 34-104 [facility] Comment on above: Performed By: #### P AB, CMP, CBC #### [address] Aspartate aminotransferase [ Enzymatic activity/volume] in Serum or PlasmaOrdered By: Albert Swan on 03-17-2024 AST [Catalytic activity/Vol] 70 U/L High 13-39 [facility] Comment on above: Performed By: #### P AB, CMP, CBC #### [address] Bilirubin.total [Mass/volume ] in Serum or PlasmaOrdered By: Albert Swan on 03-17-2024 Bilirubin [Mass/Vol] 0.5 mg/dL Normal 0.3-1.0 [facility] Comment on above: Performed By: #### P AB, CMP, CBC #### [address] COVID-19 FRon 03-17-2024 SARS-CoV-2 (COVID-19) RNA BENITO+probe Ql (Unsp spec) Positive Critically abnormal Negative [facility] Comment on above: Order Comment: Healt hcare Worker?: N Result Comment: Positive results will only be called to Providers for Inpatients Results called at 1306 on 03/17/24 Testing for SARS-CoV-2 by RT-PCR This test was developed and its performance characteristics determined by [employer] and validated at the [facility]. This test has not been FDA cleared [...] is terminated or revoked sooner. PERFORMED BY: [place] [address] PATHOLOGIST SENIOR ANALYST DEVELOPER SHELBIE ALMONTE M.D. Performed By: #### G LULS #### Point of Care testing , Complete Blood Count Auto Di ffon 03-17-2024 Basophils (Bld) [#/Vol] 0.0 10*3/uL Normal 0.0-0.2 [facility] Comment on above: Result Comment: PERF ORMED BY: [place] [address] PATHOLOGIST SENIOR ANALYST DEVELOPER SHELBIE ALMONTE M.D. Performed By: #### P AB, CMP, CBC #### [address] Basophils/100 WBC (Bld) 0.3 % Normal . [facility] Comment on above: Performed By: #### P AB, CMP, CBC #### [address] Eosinophils (Bld) [#/Vol] 0.2 10*3/uL Normal 0.0-0.45 [facility] Comment on above: Performed By: #### P AB, CMP, CBC #### [address] Eosinophils/100 WBC (Bld) 3.3 % Normal . [facility] Comment on above: Performed By: #### P AB, CMP, CBC #### [address] Erythrocyte distribution width (RBC) [Ratio] 13.0 % Normal 12.0-14.8 [facility] Comment on above: Performed By: #### P AB, CMP, CBC #### [address] Hematocrit (Bld) [Volume fraction] 28.5 % Low 38.8-50.0 [facility] Comment on above: Performed By: #### P AB, CMP, CBC #### [address] Hemoglobin (Bld) [Mass/Vol] 9.8 g/dL Low 13.0-17.0 [facility] Comment on above: Performed By: #### P AB, CMP, CBC #### [address] Lymphocytes (Bld) [#/Vol] 1.8 10*3/uL Normal 1.00-4.8 [facility] Comment on above: Performed By: #### P AB, CMP, CBC #### [address] Lymphocytes/100 WBC (Bld) 24.9 % Normal . [facility] Comment on above: Performed By: #### P AB, CMP, CBC #### [address] MCH (RBC) [Entitic mass] 35.6 pg High 27.5-35.2 [facility] Comment on above: Performed By: #### P AB, CMP, CBC #### [address] MCV (RBC) [Entitic vol] 104.1 fL High 83.5-101 [facility] Comment on above: Performed By: #### P AB, CMP, CBC #### [address] Mean Corpuscular HGB Conc 34.2 g/dL Normal 32.5-35.6 [facility] Comment on above: Performed By: #### P AB, CMP, CBC #### [facility] [address] Monocytes (Bld) [#/Vol] 0.9 10*3/uL High 0.0-0.8 [facility] Comment on above: Performed By: #### P AB, CMP, CBC #### [facility] [address] Monocytes/100 WBC (Bld) 13.0 % Normal . [facility] Comment on above: Performed By: #### P AB, CMP, CBC #### [facility] [address] [place] [address] [place] Neutrophils (Bld) [#/Vol] 4.1 10*3/uL Normal 1.8-7.7 [facility] Comment on above: Performed By: #### P AB, CMP, CBC #### [facility] [address] Neutrophils/100 WBC (Bld) 58.5 % Normal . [facility] Comment on above: Performed By: #### P AB, CMP, CBC #### [facility] [address] NRBC% 0.1 /100{WBC} Normal 0-0.5 [facility] Comment on above: Performed By: #### P AB, CMP, CBC #### [facility] [address] Platelet mean volume (Bld) [Entitic vol] 8.5 fL Normal 6.6-10.1 [facility] Comment on above: Performed By: #### P AB, CMP, CBC #### [facility] [address] [place] [address] [place] Platelets (Bld) [#/Vol] 189 10*3/uL Normal 150-450 [facility] Comment on above: Performed By: #### P AB, CMP, CBC #### [facility] [address] [place] [address] [place] RBC (Bld) [#/Vol] 2.74 10*6/uL Low 3.90-5.60 [facility] Comment on above: Performed By: #### P AB, CMP, CBC #### [address] WBC (Bld) [#/Vol] 7.0 10*3/uL Normal 4.1-10.5 [facility] Comment on above: Performed By: #### P AB, CMP, CBC #### [address] Comprehensive Metabolic Pane lora 03-17-2024 Albumin [Mass/Vol] 3.3 g/dL Low 3.5-5.7 [facility] Comment on above: Performed By: #### P AB, CMP, CBC #### [address] Anion gap [Moles/Vol] 10.4 mmol/L Normal 6.0-15.0 [facility] Comment on above: Performed By: #### P AB, CMP, CBC #### [address] Calcium [Mass/Vol] 8.8 mg/dL Normal 8.6-10.3 [facility] Comment on above: Performed By: #### P AB, CMP, CBC #### [address] Chloride [Moles/Vol] 100 mmol/L Normal 98-107 [facility] Comment on above: Performed By: #### P AB, CMP, CBC #### [address] CO2 [Moles/Vol] 29.9 mmol/L Normal 21.0-31.0 [facility] Comment on above: Performed By: #### P AB, CMP, CBC #### [address] Creatinine [Mass/Vol] 1.20 mg/dL Normal 0.70-1.30 [facility] Comment on above: Performed By: #### P AB, CMP, CBC #### [place] [address] [place] Creatinine Clr Calc Pharmacy 59.79 Normal [facility] Comment on above: Performed By: #### P AB, CMP, CBC #### [facility] [address] [place] [address] [place] GFR/1.73 sq M.predicted MDRD (S/P/Bld) [Vol rate/Area] mL/min/{1.73_m2} Normal [facility] Comment on above: Performed By: #### P AB, CMP, CBC #### [facility] [address] [place] [address] [place] Glucose [Mass/Vol] 122 mg/dL High 70-100 [facility] Comment on above: Result Comment: [place] [facility] Glucose Reference Range is dependent on time and content of last meal. Glucose of more than 200 mg/dL in a nonstressed, ambulatory subject supports the diagnosis of Diabetes Mellitus. ADA recommended reference range Performed By: #### P AB, CMP, CBC #### [place] [address] [place] Potassium [Moles/Vol] 4.3 mmol/L Normal 3.5-5.1 [facility] Comment on above: Performed By: #### P AB, CMP, CBC #### [place] [address] [place] Sodium [Moles/Vol] 136 mmol/L Normal 136-145 [facility] Comment on above: Performed By: #### P AB, CMP, CBC #### [place] [address] [place] Urea nitrogen [Mass/Vol] 18 mg/dL Normal 7-25 [facility] Comment on above: Performed By: #### P AB, CMP, CBC #### [facility] [address] [place] [address] [place] Glucose Poct Glucometerson 0 03-17-2024 Glucose [Mass/Vol] 178 mg/dL Normal [facility] Comment on above: Result Comment: [place] [facility] Glucose Reference Range is dependent on time and content of last meal. Glucose of more than 200 mg/dL in a nonstressed, ambulatory subject supports the diagnosis of Diabetes Mellitus. PERFORMED BY: [address] [place] [address] PATHOLOGIST SENIOR ANALYST DEVELOPER SHELBIE ALMONTE M.D. Performed By: #### G LULS #### Point of Care testing , Glucose [Mass/Vol] 126 mg/dL Normal [facility] Comment on above: Result Comment: [facility] Glucose Reference Range is dependent on time and content of last meal. Glucose of more than 200 mg/dL in a nonstressed, ambulatory subject supports the diagnosis of Diabetes Mellitus. PERFORMED BY: [address] [address] PATHOLOGIST SENIOR ANALYST DEVELOPER SHELBIE ALMONTE M.D. Performed By: #### G LULS #### Point of Care testing , Glucose [Mass/Vol] 166 mg/dL Normal [facility] Comment on above: Result Comment: [facility] Glucose Reference Range is dependent on time and content of last meal. Glucose of more than 200 mg/dL in a nonstressed, ambulatory subject supports the diagnosis of Diabetes Mellitus. PERFORMED BY: [address] [address] PATHOLOGIST SENIOR ANALYST DEVELOPER SHELBIE ALMONTE M.D. Performed By: #### G LULS #### Point of Care testing , Glucose [Mass/Vol] 147 mg/dL Normal [facility] Comment on above: Result Comment: [facility] Glucose Reference Range is dependent on time and content of last meal. Glucose of more than 200 mg/dL in a nonstressed, ambulatory subject supports the diagnosis of Diabetes Mellitus. PERFORMED BY: [address] [place] [address] PATHOLOGIST SENIOR ANALYST DEVELOPER SHELBIE ALMONTE M.D. Performed By: #### G LULS #### Point of Care testing , Prealbumin [Mass/volume] in Serum or PlasmaOrdered By: Albert Swan on 03-17-2024 Prealbumin [Mass/Vol] 17.4 mg/dL Normal 17.0-34.0 [facility] Comment on above: Result Comment: PERF ORMED BY: [address] [address] PATHOLOGIST SENIOR ANALYST DEVELOPER SHELBIE ALMONTE M.D. Performed By: #### P AB, CMP, CBC #### [address] Protein [Mass/volume] in Ser um or PlasmaOrdered By: Albert Swan on 03-17-2024 Protein [Mass/Vol] 6.3 g/dL Low 6.4-8.9 [facility] Comment on above: Performed By: #### P AB, CMP, CBC #### [address] Serum globulin measurement b y calculation (mass/volume)Ordered By: Albert Swan on 03-17-2024 Globulin (S) [Mass/Vol] 3.0 g/dL Normal F [facility] Comment on above: Performed By: #### P AB, CMP, CBC #### [address] Serum or plasma albumin/glob ulin mass ratioOrdered By: Albert Swan on 03-17-2024 Albumin/Globulin [Mass ratio] 1.1 {ratio} Normal [facility] Comment on above: Performed By: #### P AB, CMP, CBC #### [address] XR chest 1V portableon 03-17 XR chest 1V portable [facility] Main [place] [address] [place] [address] XRay Report Signed Patient: Bishnu Love MR#: [id number] : 1945 Acct:[id number] Age/Sex: 78 / M ADM Date: 03/16/24 Loc: Room: [address] [place] [address] Type: ADM IN Attending Dr: Albert Swan [...] Jeff Nguyen M.D.03/17/2024 7:45 PM Dictation Location: [place] [address] Transcribed By: [facility] 03/17/241944 Dictated By: Jeff Nguyen DO 03/17/241943 Signed By: 03/17/241944 Normal [facility] Glucose Poct Glucometerson 0 03-16-2024 Glucose [Mass/Vol] 140 mg/dL Normal [facility] Comment on above: Result Comment: [facility] Glucose Reference Range is dependent on time and content of last meal. Glucose of more than 200 mg/dL in a nonstressed, ambulatory subject supports the diagnosis of Diabetes Mellitus. PERFORMED BY: [address] [place] [address] PATHOLOGIST SENIOR ANALYST DEVELOPER SHELBIE ALMONTE M.D. Performed By: #### G LULS #### Point of Care testing , Glucose [Mass/Vol] 158 mg/dL Normal [facility] Comment on above: Result Comment: [facility] Glucose Reference Range is dependent on time and content of last meal. Glucose of more than 200 mg/dL in a nonstressed, ambulatory subject supports the diagnosis of Diabetes Mellitus. PERFORMED BY: [address] [place] [address] PATHOLOGIST SENIOR ANALYST DEVELOPER SHELBIE ALMONTE M.D. Performed By: #### G LULS #### Point of Care testing , A1C with Estimated Average G [facility] 02-25-2024 Glucose [Mass/Vol] 120 mg/dL Normal [facility] Comment on above: Result Comment: PERF ORMED BY: [address] [place] [address] PATHOLOGIST SENIOR ANALYST DEVELOPER SHELBIE ALMONTE M.D. Performed By: #### G LULS #### Point of Care testing , Activated partial thrombopla stin time (aPTT) in platelet poor plasma by coagulation aOrdered By: Austin Monte on 02-25-2024 aPTT Coag (PPP) [Time] 31.4 s 25.1-36.5 [facility] Comment on above: A hematocrit value g reater than 55% may lead to inaccurate results in coagulation testing. Patients having hematocrit values >55% require a special collection tube for coagulation studies. Please contact the laboratory at [phone] for redraw instructions. Automated basophil %Ordered By: Austin Monte on 02-25-2024 Basophils/100 WBC (Bld) 0.3 % Normal . [facility] Comment on above: Performed By: #### G LULS #### Point of Care testing , Automated basophil countOrde red By: Austin Monte on 02-25-2024 Basophils (Bld) [#/Vol] 0.0 10*3/uL Normal 0.0-0.2 [facility] Comment on above: Result Comment: PERF ORMED BY: [facility] [address] [place] [address] PATHOLOGIST SENIOR ANALYST DEVELOPER SHELBIE ALMONTE M.D. Performed By: #### G LULS #### Point of Care testing , Automated blood monocyte cou ntOrdered By: Austin Monte on 02-25-2024 Monocytes (Bld) [#/Vol] 0.7 10*3/uL Normal 0.0-0.8 [facility] Comment on above: Performed By: #### G LULS #### Point of Care testing , Automated eosinophil %Ordere d By: Austin Monte on 02-25-2024 Eosinophils/100 WBC (Bld) 2.5 % Normal . [facility] Comment on above: Performed By: #### G LULS #### Point of Care testing , Automated eosinophil countOr dered By: Austin Monte on 02-25-2024 Eosinophils (Bld) [#/Vol] 0.2 10*3/uL Normal 0.0-0.45 [facility] Comment on above: Performed By: #### G LULS #### Point of Care testing , Automated monocyte %Ordered By: Austin Monte on 02-25-2024 Monocytes/100 WBC (Bld) 10.0 % Normal . [facility] Comment on above: Performed By: #### G LULS #### Point of Care testing , Automated neutrophil %Ordere d By: Austin Monte on 02-25-2024 Neutrophils/100 WBC (Bld) 58.8 % Normal . [facility] Comment on above: Performed By: #### G LULS #### Point of Care testing , Basic Metabolic Panelon 02-02 GFR/1.73 sq M.predicted MDRD (S/P/Bld) [Vol rate/Area] 51.890 mL/min/{1.73_m2} Normal [facility] Comment on above: Performed By: #### G LULS #### Point of Care testing , Calcium [Mass/volume] in Ser um or PlasmaOrdered By: Austin Monte on 02-25-2024 Calcium [Mass/Vol] 8.9 mg/dL Normal 8.6-10.3 [facility] Comment on above: Result Comment: PERF ORMED BY: [facility] [address] [place] [address] PATHOLOGIST SENIOR ANALYST DEVELOPER SHELBIE ALMONTE M.D. Performed By: #### G LULS #### Point of Care testing , Carbon dioxide, total [Moles /volume] in Serum or PlasmaOrdered By: Austin Monte on 02-25-2024 CO2 [Moles/Vol] 29.2 mmol/L Normal 21.0-31.0 [facility] Comment on above: Performed By: #### G LULS #### Point of Care testing , Chloride [Moles/volume] in S bhavin or PlasmaOrdered By: Austin Digradha on 02-25-2024 Chloride [Moles/Vol] 105 mmol/L Normal 98-107 [facility] Comment on above: Performed By: #### G LULS #### Point of Care testing , Coagulation Profileon 2023 aPTT Coag (Bld) [Time] 31.4 s Normal 25.1-36.5 [facility] Comment on above: Result Comment: A he matocrit value greater than 55% may lead to inaccurate results in coagulation testing. Patients having hematocrit values >55% require a special collection tube for coagulation studies. Please contact the laboratory at [phone] for redraw instructions. PERFORMED BY: [place] [address] PATHOLOGIST SENIOR ANALYST DEVELOPER SHELBIE ALMONTE M.D. Performed By: #### G LULS #### Point of Care testing , Complete Blood Count Auto Di ffon 02-25-2024 Mean Corpuscular HGB Conc 33.7 g/dL Normal 32.5-35.6 [facility] Comment on above: Performed By: #### G LULS #### Point of Care testing , NRBC% 0.1 /100{WBC} Normal 0-0.5 [facility] Comment on above: Performed By: #### G LULS #### Point of Care testing , Creatinine [Mass/volume] in Serum or PlasmaOrdered By: Austin Monte on 02-25-2024 Creatinine [Mass/Vol] 1.39 mg/dL High 0.70-1.30 [facility] Comment on above: Performed By: #### G LULS #### Point of Care testing , ECG 12 lead ECGon 02-25-2024 ECG 12 lead ECG [facility] Main [address] [address] Electrocardiograph Report Signed Patient: Bishnu Love MR#: [id number] : 1945 Acct:[id number] Age/Sex: 78 / M ADM Date: 02/25/24 Loc: XD Room: Type: [facility] Attending Dr: Austin Monte PA-C Ordering Provider: [...] change was found Confirmed by JOHANNA HARRISON [facility] ([id number] on 02/26/2024 8:41:47 AM Referred By: Electronically Signed By:CAROLINA MAGAÑA MD [facility] Transcribed By: [facility] Signed By Yoshi Magaña MD 02/26/24 0841 Normal [facility] Erythrocyte distribution wid th [Ratio] by Automated countOrdered By: Austin Monte on 02-25-2024 Erythrocyte distribution width (RBC) [Ratio] 13.8 % Normal 12.0-14.8 [facility] Comment on above: Performed By: #### G LULS #### Point of Care testing , Erythrocytes [#/volume] in B lood by Automated countOrdered By: Austin Monte on 02-25-2024 RBC (Bld) [#/Vol] 3.39 10*6/uL Low 3.90-5.60 [facility] Comment on above: Performed By: #### G LULS #### Point of Care testing , Glucose [Mass/volume] in Ser um or PlasmaOrdered By: Austin Monte on 02-25-2024 Glucose [Mass/Vol] 119 mg/dL High 70-100 [facility] Comment on above: ADA recommended refe rence rangeRandom Glucose Reference Range is dependent on time and content of last meal. Glucose of more than 200 mg/dL in a nonstressed, ambulatory subject supports the diagnosis of Diabetes Mellitus. Result Comment: [place] om Glucose Reference Range is dependent on [...] from glycated hemoglobin (Bld) [Mass/Vol] 120 mg/dL [facility] Hematocrit [Volume Fraction] of Blood by Automated countOrdered By: Austin Mell on 02-25-2024 Hematocrit (Bld) [Volume fraction] 35.7 % Low 38.8-50.0 [facility] Comment on above: Performed By: #### G SUPA #### Point of Care testing , Hemoglobin A1c percentageOrd ered By: Austin Monte on 02-25-2024 HbA1c (Bld) [Mass fraction] 5.8 % High 4.3-5.6 [facility] Comment on above: Increased risk for d iabetes: 5.7 - 6.4diabetes: >6.4glycemic control for adults with diabetes: <7.0 Result Comment: Incr eased risk for diabetes: 5.7 - 6.4 diabetes: >6.4 glycemic control for adults with diabetes: <7.0 Performed By: #### G SUPA #### Point of Care testing , Hemoglobin [Mass/volume] in BloodOrdered By: Austin Monte on 02-25-2024 Hemoglobin (Bld) [Mass/Vol] 12.0 g/dL Low 13.0-17.0 [facility] Comment on above: Performed By: #### G SUPA #### Point of Care testing , INR in Platelet poor plasma by Coagulation assayOrdered By: Austin Monte on 02-25-2024 INR Coag (PPP) [Relative time] 1.0 {INR} Normal [facility] Comment on above: INR Therapeutic Rang e [...] 3 - 4.5 Performed By: #### G LULS #### Point of Care testing , Leukocytes [#/volume] correc nadine for nucleated erythrocytes in Blood by Automated counOrdered By: Austin Monte on 02-25-2024 WBC corrected for nucl RBC Auto (Bld) [#/Vol] 6.9 10*3/uL 4.1-10.5 [facility] Leukocytes [#/volume] in Blo od by Automated countOrdered By: Austin Monte on 02-25-2024 WBC (Bld) [#/Vol] 6.9 10*3/uL Normal 4.1-10.5 [facility] Comment on above: Performed By: #### G LULS #### Point of Care testing , Lymphocytes [#/volume] in Bl ood by Automated countOrdered By: Austin Monte on 02-25-2024 Lymphocytes (Bld) [#/Vol] 2.0 10*3/uL Normal 1.00-4.8 [facility] Comment on above: Performed By: #### G LULS #### Point of Care testing , Lymphocytes/100 leukocytes i n Blood by Automated countOrdered By: Austin Monte on 02-25-2024 Lymphocytes/100 WBC (Bld) 28.4 % Normal . [facility] Comment on above: Performed By: #### G LULS #### Point of Care testing , MCH [Entitic mass] by Automa nadine countOrdered By: Austin Monte on 02-25-2024 MCH (RBC) [Entitic mass] 35.5 pg High 27.5-35.2 [facility] Comment on above: Performed By: #### G LULS #### Point of Care testing , MCHC Auto (RBC) [Mass/Vol]Or dered By: Austin Monte on 02-25-2024 MCHC (RBC) [Mass/Vol] 33.7 g/dL 32.5-35.6 [facility] MCV [Entitic volume] by Auto mated countOrdered By: Austin Monte on 02-25-2024 MCV (RBC) [Entitic vol] 105.4 fL High 83.5-101 F [facility] Comment on above: Performed By: #### G LULS #### Point of Care testing , MRSA Cultureon 02-25-2024 MRSA Culture MRSA Culture Results No MRSA Isolated 2 Days PERFORMED BY: [facility] [place] [address] PATHOLOGIST SENIOR ANALYST DEVELOPER SHELBIE ALMONTE M.D. Normal [facility] Comment on above: Performed By: #### G LULS #### Point of Care testing , Neutrophils [#/volume] in Bl ood by Automated countOrdered By: Austin Monte on 02-25-2024 Neutrophils (Bld) [#/Vol] 4.1 10*3/uL Normal 1.8-7.7 [facility] Comment on above: Performed By: #### G LULS #### Point of Care testing , No Panel InformationOrdered By: Austin Monte on 02-25-2024 Estimated GFR (CKD-EPI) 51.890 mL/Min [facility] Creatinine Clearance (Chem N/A [facility] Nucleated erythrocytes [Pres ence] in Blood by Automated countOrdered By: Austin Monte on 02-25-2024 Nucleated RBC Auto Ql (Bld) 0.1 /100{WBC} 0-0.5 [facility] Platelet mean volume [Entiti c volume] in Blood by Automated countOrdered By: Austin Monte on 02-25-2024 Platelet mean volume (Bld) [Entitic vol] 9.0 fL Normal 6.6-10.1 [facility] Comment on above: Performed By: #### G LULS #### Point of Care testing , Platelets [#/volume] in Bloo d by Automated countOrdered By: Austin Monte on 02-25-2024 Platelets (Bld) [#/Vol] 150 10*3/uL Normal 150-450 [facility] Comment on above: Performed By: #### G LULS #### Point of Care testing , Potassium [Moles/volume] in Serum or PlasmaOrdered By: Austin Monte on 02-25-2024 Potassium [Moles/Vol] 4.6 mmol/L Normal 3.5-5.1 [facility] Comment on above: Performed By: #### G LULS #### Point of Care testing , Prothrombin time (PT)Ordered By: Austin Monte on 02-25-2024 PT Coag (PPP) [Time] 11.4 s Normal 9.0-12.9 [facility] Comment on above: A hematocrit value g reater than 55% may lead to inaccurate results in coagulation testing. Patients having hematocrit values >55% require a special collection tube for coagulation studies. Please contact the laboratory at [phone] for redraw instructions. Result Comment: A he matocrit value greater than 55% may lead to inaccurate results in coagulation testing. Patients having hematocrit values >55% require a special collection tube for coagulation studies. Please contact the laboratory at [phone] for redraw instructions. Performed By: #### G LULS #### Point of Care testing , Serum or plasma anion gap de terminationOrdered By: Austin Monte on 02-25-2024 Anion gap [Moles/Vol] 11.4 mmol/L Normal 6.0-15.0 [facility] Comment on above: Performed By: #### G LULS #### Point of Care testing , Sodium [Moles/volume] in Ser um or PlasmaOrdered By: Austin Monte on 02-25-2024 Sodium [Moles/Vol] 141 mmol/L Normal 136-145 [facility] Comment on above: Performed By: #### G LULS #### Point of Care testing , Urea nitrogen [Mass/volume] in Serum or PlasmaOrdered By: Austin Monte on 02-25-2024 Urea nitrogen [Mass/Vol] 21 mg/dL Normal 7-25 [facility] Comment on above: Performed By: #### G LULS #### Point of Care testing , Wound methicillin resistant Staphylococcus aureus (MRSA) cultureOrdered By: Austin Monte on 02-25-2024 MRSA isol Org specific cx Ql (Unsp spec) [facility] XR chest 2V*on 02-25-2024 XR chest 2V* [facility] Main [address] [address] XRay Report Signed Patient: Bishnu Love MR#: [id number] : 1945 Acct:[id number] Age/Sex: 78 / M ADM Date: 02/25/24 Loc: XD Room: Type: REG CLI Attending Dr: Austin Monte PA-C Copies to: [...] Jeff Nguyen M.D.02/25/2024 12:18 PM Dictation Location: [place] [address] Transcribed By: [facility] 02/25/24 1218 Dictated By: Jeff Nguyen DO 02/25/24 1211 Signed By: 02/25/24 1218 Normal [facility] MR lumbar spine wo conon MR lumbar spine wo con [facility] Main [address] [address] MRI Report Signed Patient: Bishnu Love MR#: [id number] : 1945 Acct:[id number] Age/Sex: 78 / M ADM Date: 12/28/23 Loc: MR Room: Type: [facility] CLI Attending Dr: Jed Salgado MD Copies to: [...] Toby Dodge M.D.12/28/2023 3:58 PM Dictation Location: [place] [address] Transcribed By: [facility] 12/28/23 1558 Dictated By: Toby Dodge II, MD 12/28/231551 Signed By: 12/28/23 1558 Normal [facility] CT lumbar spine wo conon CT lumbar spine wo con [facility] [place] [address] CT Scan Report Signed Patient: Bishnu Love MR#: [id number] : 1945 Acct:[id number] Age/Sex: 78 / M ADM Date: 11/14/23 Loc: CT Room: Type: [facility] Attending Dr: Kaitlynn Liz MD Copies to: [...] Toby Dodge M.D.11/14/2023 4:16 PM Dictation Location: [place] [address] Transcribed By: [facility] 11/14/23 1616 Dictated By: Toby Dodge II, MD 11/14/23 1606 Signed By: 11/14/23 1616 Normal [facility] Covid-19 PCR (CVDTBH)on 08-03 SARS-CoV-2 (COVID-19) RNA BENITO+probe Ql (Unsp spec) Not detected Normal NOT DETECTED [facility] Comment on above: Result Comment: This test is not yet approved or cleared by the [place] FDA. When there are no FDA-approved or cleared tests available, and other criteria are met, FDA can make tests available under an emergency access mechanism called an Emergency Use Authorization (EUA). The EUA for this test is supported by the [place] of Health and Human Service's (HHS's) declaration [...] SARS-CoV-2. Performed By: #### C VDTBH #### [facility] [address] [place] [address] Dr. Leeann Vail INFLUENZA A AND B AGon 08-16 INFLUANEGH SEE BELOW Normal [facility] Comment on above: Result Comment: Nega tive for Flu A protein angiten. Infection due to Flu A cannot be ruled out. Flu A angiten in the sample may be below the detection limit of the test. Performed By: #### I NFLUAB #### [facility] [address] [place] [address] [facility] SEE BELOW Normal [facility] Comment on above: Result Comment: Nega tive for Flu B protein antigen. Infection due to Flu B cannot be ruled out. Flu B antigen in the sample may be below the detection limit of the test. Performed By: #### I NFLUAB #### [facility] [address] [place] [address] Dr. Leeann Vail INFLUENZA A AG Negative Normal NEGATIVE SEE COMMENT [facility] Comment on above: Performed By: #### I NFLUAB #### [facility] [address] [address] [address] Leeann Vail INFLUENZA B AG Negative Normal NEGATIVE SEE COMMENT [facility] Comment on above: Performed By: #### I NFLUAB #### [facility] [address] [place] [address] Dr. Leeann Vail INTERNAL CONTROLS Within Normal Limits Normal Wi thin Normal Limits [facility] Comment on above: Performed By: #### I NFLUAB #### [facility] [address] [place] [address] Dr. Leeann Vail Lab Reportson 04-02-2020 Lab Reports [id number]:127 Normal [facility] Consent for Procedure/Surger yon 03-24-2020 Consent for Procedure/Surgery [id number]:127 Normal [facility] Ambulatory Clinical Summaryo n 03-16-2020 Ambulatory Clinical Summary {[id number]}CD: [id number] Normal [facility] Physician Referralon 020 Physician Referral [id number]:127 Normal [facility] Vital Signs Date Time Vital Sign Value Performing Clinician Faci lity 03-31-2024 10:08-0400 Body temperature 98 [degF] MD Kaitlynn Liz Work Phone: [facility] 03-31-2024 10:08-0400 Diastolic blood pressure 84 mm[Hg] MD Kaitlynn Liz Work Phone: [facility] 03-31-2024 10:08-0400 Heart rate 78 /min MD Kaitlynn Liz Work Phone: [facility] 03-31-2024 10:08-0400 Respiratory rate 20 /min MD Kaitlynn Liz Work Phone: [facility] 03-31-2024 10:08-0400 SaO2% (BldA) [Mass fraction] 96 % MD Kaitlynn Liz Work Phone: [facility] 03-31-2024 10:08-0400 Systolic blood pressure 134 mm[Hg] MD Kaitlynn Liz Work Phone: [facility] 03-30-2024 05:04-0400 Body weight 104.1 kg MD Kaitlynn Liz Work Phone: [facility] 03-24-2024 12:02-0400 Body height 177.8 cm MD Kaitlynn Liz Work Phone: [facility] Encounters Encounter Date Encounter Type Care Provider Facility Start: 07-29-2024 End: 07-29-2024 Haider Fitzgerald MD Work Phone: [facility] Start: 07-29-2024 End: 07-29-2024 [employer] reinier Fitzgerald MD Work Phone: [facility] Start: 07-29-2024 End: 07-29-2024 Office outpatient visit 25 minutes Gaudencio Fitzgerald MD Work Phone: [facility] Comment on above: Other atopic dermati tis (Primary Dx) Start: 07-29-2024 End: 07-29-2024 ambulatory GAUDENCIO FITZGERALD Not Available Start: 07-10-2024 End: 07-10-2024 [employer]i Greer APRN-DEBBY Work Phone: [facility] Start: 07-10-2024 End: 07-16-2024 Bamboo flowsheet Tia A Felter CONSTRUCTION SITE MANAGER-PLATE SETTER Work Phone: [facility] Start: 07-10-2024 End: 07-16-2024 External Result Encounter Tia A Felter CONSTRUCTION SITE MANAGER-PLATE SETTER Work Phone: [facility] External Department Unsolicited Start: 07-10-2024 End: 07-10-2024 Office outpatient visit 15 minutes Tia A Felter CONSTRUCTION SITE MANAGER-PLATE SETTER Work Phone: [facility] Comment on above: Neoplasm of unspecif ied behavior of bone, soft tissue, and skin; Other atopic dermatitis; Other seborrheic dermatitis Start: 07-10-2024 End: 07-10-2024 ambulatory TIA A FELTER Not Available Start: 06-26-2024 End: 06-26-2024 Office outpatient visit 25 minutes Tia A Felter CONSTRUCTION SITE MANAGER-PLATE SETTER Work Phone: [facility] Comment on above: Encounter for remova l of sutures; Other atopic dermatitis Start: 06-26-2024 End: 06-26-2024 Bamboo flowsheet Tia A Felter CONSTRUCTION SITE MANAGER-PLATE SETTER Work Phone: [facility] Start: 06-26-2024 End: 06-26-2024 Bamboo flowsheet Tia A Felter CONSTRUCTION SITE MANAGER-PLATE SETTER Work Phone: [facility] Start: 06-26-2024 End: 06-26-2024 ambulatory TIA A FELTER Not Available Start: 06-16-2024 End: 06-16-2024 Bamboo flowsheet Tia A Felter CONSTRUCTION SITE MANAGER-PLATE SETTER Work Phone: [facility] Start: 06-16-2024 End: 06-16-2024 Bamboo flowsheet Tia A Felter CONSTRUCTION SITE MANAGER-PLATE SETTER Work Phone: [facility] Start: 06-16-2024 End: 06-16-2024 Patient encounter procedure Tia A Felter CONSTRUCTION SITE MANAGER-PLATE SETTER Work Phone: [facility] Comment on above: Rash and other nonsp ecific skin eruption Start: 06-16-2024 End: 06-16-2024 ambulatory TIA [place] FELTER Not Available Start: 05-26-2024 End: 05-26-2024 Office outpatient visit 25 minutes Tia Haner CONSTRUCTION SITE MANAGER-PLATE SETTER Work Phone: [facility] Comment on above: Other seborrheic sallie matitis (Primary Dx); Actinic keratosis; Seborrheic keratosis; Melanocytic nevus of trunk; Angioma of skin Start: 05-26-2024 End: 05-26-2024 Bamboo flowsheet Tia [place] Felter CONSTRUCTION SITE MANAGER-PLATE SETTER Work Phone: [facility] Start: 05-26-2024 End: 05-26-2024 Bamboo flowsheet Tia [place] Felter CONSTRUCTION SITE MANAGER-PLATE SETTER Work Phone: [facility] Start: 05-26-2024 End: 05-26-2024 ambulatory TIA HANER Not Available Start: 03-24-2024 Non-patient / Non-visit MD Apolonia Liz Work Phone: [facility] Work Phone: Start: 03-17-2024 Non-patient / Non-visit MD Apolonia Liz Work Phone: [facility] Work Phone: Start: 03-16-2024 End: 03-31-2024 Evaluation and management of inpatient MD Kaitlynn Liz Work Phone: [facility] Work Phone: Start: 02-25-2024 End: 02-25-2024 Patient encounter procedure MD Kaitlynn Liz Work Phone: [facility] [place] Work Phone: Start: 02-25-2024 End: 02-25-2024 ambulatory MD Kaitlynn Liz Work Phone: [facility] Work Phone: Start: 12-28-2023 End: 12-28-2023 Patient encounter procedure MD Kaitlynn Liz Work Phone: [facility]MRI [place] Work Phone: Start: 12-28-2023 End: 12-28-2023 ambulatory MD Kaitlynn Liz Work Phone: [facility] Work Phone: Start: 11-14-2023 End: 11-14-2023 Patient encounter procedure MD Kaitlynn Liz Work Phone: [facility]-CT Scan [place] Work Phone: Start: 11-14-2023 End: 11-14-2023 ambulatory MD Kaitlynn Liz Work Phone: [facility] Work Phone: Start: 08-16-2022 End: 08-16-[address] KAITLYNN LIZ Facility: Procedures Date Procedure Procedure Detail Performing Clinician Start: 07-10-2024 SKIN / NAIL BIOPSY Keesha lie Celena Felter CONSTRUCTION SITE MANAGER-PLATE SETTER Work Phone: Start: 07-10-2024 Level i surg patholo gy gross examination only Tia Hansalina CONSTRUCTION SITE MANAGER-PLATE SETTER Work Phone: Start: 06-16-2024 SKIN / NAIL BIOPSY Keesha lie Celena Felter CONSTRUCTION SITE MANAGER-PLATE SETTER Work Phone: Start: 05-26-2024 CRYOTHERAPY SKIN LESION Tia Greer CONSTRUCTION SITE MANAGER-PLATE SETTER Work Phone: Start: 03-18-2024 Urine culture MD Delores Liz [...] Treatment Date Care Activity Detail Author Start: 05-28-2025 End: 05-28-2025 Patient encounter procedure 05/28/2025 1:35 PM EDT Office Visit [facility] [address] [place] [phone] Tia Greer, CONSTRUCTION SITE MANAGER-PLATE SETTER [address] [place] [address] [facility] Start: 09-29-2024 End: 09-29-2024 Patient encounter procedure 09/29/2024 1:10 PM EST Office Visit [facility] [address] [place] [phone] Tia Greer, CONSTRUCTION SITE MANAGER-PLATE SETTER [address] [place] [address] [facility] Start: 08-04-2024 End: 08-04-2024 Patient encounter procedure 08/04/2024 1:50 PM EST Office Visit [facility] [address] [place] [address] Tia Greer, CONSTRUCTION SITE MANAGER-PLATE SETTER [address] [place] [address] [facility] Start: 07-10-2024 End: 07-10-2024 Patient encounter procedure 07/10/2024 11:35 AM EST Office Visit [facility] [address] [place] [address] Tia Greer, CONSTRUCTION SITE MANAGER-PLATE SETTER [address] [place] [address] Arrived [facility] Comment on above: Arrived Start: 06-26-2024 End: 06-26-2024 Patient encounter procedure [facility] Comment on above: Arrived Start: 06-20-2024 End: 06-20-2024 Patient encounter procedure 06/20/2024 10:25 AM EDT Office Visit [facility] [address] [place] [phone] Tia Greer, CONSTRUCTION SITE MANAGER-PLATE SETTER [address] [place] [address] [facility] Start: 06-16-2024 End: 06-16-2024 Patient encounter procedure 06/16/2024 1:00 PM EDT Office Visit [facility] [address] [place] [address] Tia Greer, CONSTRUCTION SITE MANAGER-PLATE SETTER [address] [place] [address] Arrived [facility] Comment on above: Arrived Start: 05-26-2024 End: 05-26-2024 Patient encounter procedure 05/26/2024 2:05 PM EDT Office Visit [facility] [address] [place] [address] Tia Greer, CONSTRUCTION SITE MANAGER-PLATE SETTER [address] [place] [address] Arrived [facility] Comment on above: Arrived Start: 05-04-2024 Influenza vaccination Influenza Vaccine (#1) [facility] Start: 03-31-2024 [facility] Start: 03-16-2024 Hospital admission [facility] Start: 03-16-2024 Referral to clinical graphic designer [facility] Start: 02-25-2024 MRSA Culture MRSA Culture [facility] Start: 2010 Pneumococcal Vaccine: 65+ Years (1 of 1 - PCV) Pneumococcal Vaccine: 65+ Years (1 of 1 - PCV) [facility] Dermatopathology exam Dermatopat hology exam Pathology and Cytology Timed Rash and other nonspecific skin eruption Release Upon Ordering for 1 Occurrences starting 06/16/2024 [facility] Work Phone: Comment on above: Release Upon Ordering for 1 Occurrences starting 06/16/2024 Dermatopathology exam Dermatopat hology exam Pathology and Cytology Timed Neoplasm of unspecified behavior of bone, soft tissue, and skin Release Upon Ordering for 1 Occurrences starting 07/10/2024 [facility] Work Phone: Comment on above: Release Upon Ordering for 1 Occurrences starting 07/10/2024 Methicillin resistan t Staphylococcus aureus [Presence] in Unspecified specimen by Organism specific culture [facility] Patient Education Spinal Fusion (DC) Know your Meds [facility] Work Phone: Patient referral [facility] Work Phone: [facility] Immunizations Immunization Date Immunization Notes Care Provider [facility] 06-26-2023 influenza virus vacc ine, unspecified formulation Tia Percy CONSTRUCTION SITE MANAGER-PLATE SETTER Work Phone: [facility] 06-22-2022 influenza virus vacc ine, unspecified formulation Tia Hansalina CONSTRUCTION SITE MANAGER-PLATE SETTER Work Phone: [facility] Healthcare Payers Date Payer Category Payer Self-pay 2022 Private Health Insurance [employer] Pr mber [id number] 2022 Unknown [employer] AAR [id number] 2022-Present [address] [place] [address] [id number] 2010 Medicare [id number] 1959 Medicare [id number] 1959 Unknown [id number] 1945 Unknown [id number] 1945 Unknown [id number] .1259 1945 Unknown [id number] .1259 1945 Unknown [id number] .1259 1945 Unknown [id number] .1259 1945 Unknown [id number] [id number] .1259 Medicare Medicare Outpatient [id number] Unknown [facility] [employer] [id number] Unknown [id number] Unknown [id number] .531 Unknown [id number] .531 Unknown [id number] .531 Social History Date Type Detail Facility Tobacco smoking stat [facility] Unknown if ever smoked [facility] Work Phone: Start: 1945 Sex Assigned At Male F [facility] Start: 03-17-2024 [facility] Start: 05-24-2023 End: 05-26-2024 History of tobacco use [facility] Work Phone: Start: 05-14-2023 [facility] Start: 05-24-2023 End: 05-26-2024 History of Social function [facility] Start: 1945 Sex assigned at Not on file [facility] Healthcare Goals Date Patient Goal Desired Activity /State Functional Status Date Assessment Result Facility 03-31-2024 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 [facility] Work Phone: Mental Status Date Assessment Result Facility 03-31-2024 Cognitive function Cognitive Sta tus Patient at Baseline [facility] Work Phone: Clinical Notes 03-18-2024 to 07-29-2024 Gaudencio Fitzgerald MD - 07/29/2024 1:45 PM ESTNatalie Celena Greer APRN-PLATE SETTER - 07/10/2024 11:35 AM ESTNatalie Celena Greer, RALPH-DEBBY - 06/26/2024 2:20 PM EDTNatalisisi Greer, RALPH-DEBBY - 06/16/2024 1:00 PM EDT Note Date & Type Note Facility 07-29-2024 History of Presen t illness Narrative Follow up Diagnosis: Atopic Dermatitis Location: generalized Last visit: 3 weeks ago Symptoms: red, itchy, scabbed, bumps Status: worsening Procedure performed: Punch biopsy Date of procedure: 06/16/2024 Treatments tried and failed: Fluocinonide 0.05% solution, Ketoconazole2% cream, 2% shampoo, Triamcinolone 0.1% cream Current treatment: Fluocinonide 0.05% solution, Ketoconazole2% cream, 2% shampoo, Triamcinolone 0.1% cream - patient is very uncomfortable. Itching till he bleeds in his sleep, ruining his bed sheets. Itching wakes him up at night, poor quality of sleep. All pertinent medical history, medications, and allergies were reviewed. General Exam: alert, oriented to person, place, and time, normal affect, well appearing uses a cane Unaccompanied A focused exam completed based on patient reported problems, see below: 1. Other atopic dermatitis Scaly erythematous plaques +/- dyspigmentation, lichenification, excoriations. Flaring today Reviewed previous biopsy results, nondiagnostic, suggestive of possible drug eruption. Patient denies any new medications prior to his rash starting. Given patient's polypharmacy, difficult to ascertain exactly which medication could be driving this if it is a drug eruption. Recommend patient stop any nonessential medications/supplements and contact PCP to see if any of his medications can be held for 3 months to see if rash improves. If no change after 3 months, ok to restart any held medications/supplements. Also recommend he start Protopic up to twice a day when flared, hold if smooth/asymptomatic. Encouraged daily moisturizing and gentle cleansers to prevent flares. Notify office if flaring despite treatment. Consider Dupixent at next visit if failing to improve despite above measures. tacrolimus (Protopic) 0.1 % ointment Apply to affected areas, twice a day when flared, 30 day supply Related Medications ketoconazole (NIZOral) 2 % cream Apply topically Daily Apply thin layer to affected area, once daily as needed when flared. fluocinonide (Lidex) 0.05 % external solution Apply to affected areas on the scalp, up to twice a day when flared, 30 day supply Next Visit: 2 months documented in this encounter [facility] 07-10-2024 History of Presen t illness Narrative Follow up Diagnosis: Other atopic dermatitis Location: generalized Last visit: 2 weeks ago Symptoms: red, itchy Status: improved since using TAC, still itching on scalp. Procedure performed: Punch biopsy Date of procedure: 06/16/2024 Treatments tried and failed: Ketoconazole2% shampoo Current treatment: Triamcinolone 0.1% cream, Fluocinonide 0.05% solution- >$100, too expensive at [facility] in [place]. All pertinent medical history, medications, and allergies were reviewed. Lesions: Location: right lateral leg Duration: noticed Sunday Quality: denies pain, denies itch Associated symptoms: dark spot Treatments: none Established patient All pertinent medical history, medications, and allergies were reviewed. General Exam: alert, oriented to person, place, and time, normal affect, well appearing uses a cane Unaccompanied A focused exam completed based on patient reported problems, see below: 1. Neoplasm of unspecified behavior of bone, soft tissue, and skin Right lateral leg Irregularly pigmented papule Lesion biopsy Type of biopsy: tangential Informed consent: discussed and consent obtained Informed consent comment: The risks and benefits of the biopsy were discussed. Risks include but are not limited to bleeding, infection, scarring, pain, and nerve damage. An opportunity to ask questions prior to the procedure was permitted and all questions were answered. Patient was prepped and draped in usual sterile fashion: area cleansed with alcohol. Anesthesia: the lesion was anesthetized in a standard fashion Anesthetic: 1% lidocaine w/ epinephrine 1-100,000 buffered w/ 8.4% NaHCO3 Instrument used: DermaBlade Hemostasis achieved with: electrodesiccation Outcome: patient tolerated procedure well Outcome comment: The specimen was placed in a prelabeled formalin container to be sent for pathology Post-procedure details: sterile dressing applied and wound care instructions given Post-procedure details comment: Emphasized need to contact clinic for any signs of infection, uncontrollable bleeding, or complications. Dressing type: bandage Additional details: Photo taken Amount of lidocaine used: 1.0 cc Specimen A - Dermatopathology exam Differential Diagnosis: ISK Check Margins: No Size of lesion: 1.0 x 1.0 cm 2. Other atopic dermatitis Left Arm, Left Leg, Right Arm, Right Leg, Scalp Erythematous patches and papules. Improving. Still itching on the scalp. Continue Fluocinonide, GoodRx coupon given and Rx sent to [facility] pharmacy where it will be cheaper. Start Ketoconazole cream 2% cream once daily when flared. Patient to follow up 08/04/24. Related Medications ketoconazole (NIZOral) 2 % cream Apply topically Daily Apply thin layer to affected area, once daily as needed when flared. fluocinonide (Lidex) 0.05 % external solution Apply to affected areas on the scalp, up to twice a day when flared, 30 day supply 3. Other seborrheic dermatitis Related Medications fluocinonide (Lidex) 0.05 % external solution Apply to affected areas on the scalp, up to twice a day when flared, 30 day supply Next Visit: 08/04/24 follow up documented in this encounter [facility] 06-26-2024 History of Presen t illness Narrative Images from the original note were not included. Suture Removal Patient here for suture removal: No complaints of redness, drainage or swelling at site, compliant with wound care. Location: Left upper arm posterior Procedure Performed: Punch biopsy Date of Procedure: 06/16/2024 Medications: none Follow up Diagnosis: Rash unspecified Location: generalized Last visit: 2 weeks ago Symptoms: red, itchy Status: improved since using TAC, still itching on scalp Procedure performed: Punch biopsy Date of procedure: 06/16/2024 Treatments tried and failed: Fluocinonide 0.05% solution, Ketoconazole2% shampoo Current treatment: Triamcinolone 0.1% cream All pertinent medical history, medications, and allergies were reviewed. General Exam: alert, oriented to person, place, and time, normal affect, well appearing uses a cane Unaccompanied A focused exam completed based on patient reported problems, see below: 1. Encounter for removal of sutures Left Upper Arm - Posterior Sutures are intact, Skin edges are well-approximated, Mild erythema along incision line, No drainage or edema noted. Discussed pathology results with patient Suture removal today, see procedure note: Suture Removal Procedure: Sutures removed without difficulty. Post-Procedure instructions: Instructed to discontinue wound care., Pathology results discussed. 2. Other atopic dermatitis Left Arm, Left Leg, Right Arm, Right Leg, Scalp Scaly erythematous plaques +/- dyspigmentation, lichenification, excoriations. 80% Improved since last visit Discussed that atopic dermatitis is a chronic condition that can be controlled but not cured. Continue TAC 0.1% bid prn when flared, hold if smooth/asymptomatic. Use Fluocinonide solution on scalp. Encouraged daily moisturizing and gentle cleansers to prevent flares. Notify office if flaring despite treatment. Follow up in 1 month. Next Visit: 1 month documented in this encounter [facility] 06-16-2024 History of Presen t illness Narrative Images from the original note were not included. Follow up Diagnosis: Seborrheic Dermatitis Location: generalized Last visit: 1 month ago Symptoms: red, itchy Status: worse Current treatment: Fluocinonide 0.05% solution, Ketoconazole2% shampoo, these are not helping. Itching has now moved all over his body. He states that he is itching in his sleep as he will wake up with his sheets all bloody from itching. All pertinent medical history, medications, and allergies were reviewed. General Exam: alert, oriented to person, place, and time, normal affect, well appearing uses a cane Unaccompanied A focused exam completed based on patient reported problems, see below: 1. Rash and other nonspecific skin eruption Left Upper Arm - Posterior Pesotum patches and plaques Biopsy today, see note. Start TAC 0.1% Cream BID PRN. Follow up in 10 days. Lesion biopsy - Left Upper Arm - Posterior Type of biopsy: punch Informed consent: discussed and consent obtained Informed consent comment: The risks and benefits were discussed. Risks include, but are not limited to, bleeding, infection, scarring, pain, & nerve damage. An opportunity to ask questions prior to the procedure was permitted and questions were answered. Patient was prepped and draped in usual sterile fashion: Area cleansed with alcohol. Anesthesia: the lesion was anesthetized in a standard fashion Anesthetic: 1% lidocaine w/ epinephrine 1-100,000 buffered w/ 8.4% NaHCO3 Punch size: 4 mm (A biopsy by punch method was performed using a dermal punch) Suture size: 4-0 Suture type: nylon Suture type comment: Hemostasis was achieved with suture. Suture removal (days): 10 Hemostasis achieved with: suture Outcome: patient tolerated procedure well Post-procedure details: sterile dressing applied and wound care instructions given Post-procedure details comment: Emphasized the need to contact clinic for any signs of infection, uncontrollable bleeding, or complications. Dressing type: bandage Additional details: Amount of lidocaine used: 1.4 cc Number of sutures used: 3 Specimen sent for: H&E Photo taken yes triamcinolone (Kenalog) 0.1 % cream - Left Upper Arm - Posterior Apply topically 2 (two) times a day as needed for rash Specimen A - Dermatopathology exam Differential Diagnosis: Drug eruption vs Seborrhoic dermatitis vs other Check Margins: No Next Visit: 10 day suture removal and follow up documented in this encounter [facility] 05-26-2024 History of Presen t illness Narrative Images from the original note were not included. Skin Check Location: Patient requests a skin examination from the waist up Dermatologic history: History os dysplastic nevus Last visit: 1 year ago Established patient All pertinent medical history, medications, and allergies were reviewed. General Exam: alert , oriented to person, place, and time , normal affect, well appearing Unaccompanied A complete skin exam was offered, pt declined. Areas not examined despite medical recommendation: From the waist down Scalp, Examined , exam limited by hair Head, Face Examined Neck Examined Chest Examined Back Examined Abdomen Examined Right arm Examined Left arm Examined Hands Examined Digits,nails: Examined Denies dark streaks under finger nails, Denies dark streaks on toenails Lymphatics: Not examined Rash Location: scalp Duration: 1 month Quality: itchy Modifying Factors: worse at night, effecting sleep Associated symptoms: red, non-healing Current treatments: OTC hydrocortisone 1. Other seborrheic dermatitis Scalp Erythema and scale. Discussed that seborrheic dermatitis is a chronic condition that can be controlled but not cured. Start ketoconazole 2% shampoo 2-3 times weekly, leave on 5-10 min, then rinse, start flucinonide 0.05% solution daily to scalp. Notify office if flaring despite treatment. ketoconazole (NIZOral) 2 % shampoo - Scalp Apply topically 2 (two) times a week Lather on scalp 2x a week, leave on 5 min before rinsing fluocinonide (Lidex) 0.05 % external solution - Scalp Apply to affected areas on the scalp, up to twice a day when flared, 30 day supply 2. Actinic keratosis (6) Mid Parietal Scalp (6) Erythematous scaly papules Patient was counseled regarding these sun-induced growths that can develop into squamous cell carcinoma if left untreated. Discussed treatment with cryotherapy. It was emphasized that any treated lesions that fail to resolve should be re-evaluated. Cryotherapy performed today; see procedure note Diagnosis: Actinic keratosis Indication: Precancerous Location: see skin exam Consent: Verbal consent was obtained and risks were discussed, including, but not limited to risks of scarring, darker or coding specialist pigmentary changes, recurrence, incomplete removal and infection. Method: Liquid nitrogen was used to treat the lesion(s) with two 5-10 second freeze-thaw cycles. Number of lesions treated: 6 Post-procedure instructions: Instructions were given orally and in writing. The office will be contacted if the lesion fails to resolve despite treatment, or if a side effect develops such as abnormal crusting, scabbing, redness or tenderness Cryotherapy, skin lesion - Mid Parietal Scalp (6) 3. Seborrheic keratosis Stuck on verrucous, bedolla-brown papules and plaques. Patient was counseled regarding these benign growths. Removal is normally not necessary, but they may be removed if they are symptomatic or for cosmetic reasons. 4. Melanocytic nevus of trunk Scattered benign appearing, regular brown to light brown melanocytic papules and macules with similar morphology Counseled regarding these benign growths. Rarely, a nevus can develop into malignant melanoma, so any changing nevi should be promptly re-evaluated. 5. Angioma of skin Scattered vela-red papule(s). The patient was informed that angiomas are benign growths on the the skin. No treatment is necessary. Next Visit: 1 year, skin check documented in this encounter [facility] 03-29-2024 Progress note Note Date/Time March 29, 2024 9:32am [facility] [address] [place] [address] Physiatry(Rehab) Progress Note Signed Patient: Bishnu Love MR#: [id number] : 1945 Acct:[id number] Age/Sex: 78 / M Adm Date: 4 Loc: 5T Room: [address] [place] [address] Type: ADM IN Attending Dr: Albert Swan [...] mg 03/16/24 13:09 Bisacodyl 10 Mg Supp.Rect [place] 03/16/25 13:08 DAILY PRN Constipation Cyclobenzaprine HCl [...] 13:09 Docusate Enema 283 Mg/5 Ml Enema [place] 03/16/25 13:08 DAILY PRN Constipation Enoxaparin Sodium [...] equipment to enhance the patient's a functional buddhist Encourage deep breathing exercises and incentive spirometry [...] equipment to enhance the patient's a functional buddhist Ensure adequate nutrition and hydration Sleep no issues Pain: Continue current regimen Discharge planning: Home 03/31. I spent 25 minutes for services, including niie-rx-cayw encounter with the patient, discussion of the case, plan of care, and exam; and pgkgews-tu-dwee activities, such as reviewing pertinent senior application security consultant documentation, recent therapynotes, laboratory and radiology studies, and discussion of case with care team including physician, nursing, heel caser, and therapists. More than 50 % of time was spent on patient/family counseling or coordination ofcare. Documented By: Camron Carpenter MD 0930 Signed By: <Electronically signed by Camron Carpenter MD> 03/29/24 0932 [facility] Work Phone: 1(894) 523-217907-26-2024 Progress note Author Albert Swan [facility] March 28, 2024 12:15pm Note Date/Time March 28, 2024 11:[address] [facility] [address] [place] [address] Physiatry(Rehab) Progress Note Signed Patient: Bishnu Love MR#: [id number] 1178 : 1945 Acct:[id number] Age/Sex: 78 / M Adm Date: 4 Loc: Room: 1X9627-2 Type: ADM IN Attending Dr: Albert Swan [...] mg 03/16/24 13:09 Bisacodyl 10 Mg Supp.Rect [place] 03/16/25 13:08 DAILY PRN Constipation Cyclobenzaprine HCl [...] 13:09 Docusate Enema 283 Mg/5 Ml Enema [place] 03/16/25 13:08 DAILY PRN Constipation Enoxaparin Sodium 40 mg 03/19/24 10:00 03/28/24 09:12 Enoxaparin 40 Mg/0.4 Ml Syringe SUBCUT 03/19/25 09:59 40 mg DAILY@1000 MARIELOS Administration Ferrous Sulfate 324 mg 03/20/24 09:00 03/28/24 09:10 Ferrous Sulfate 324 Mg Tablet.Dr PO 03/20/25 [...] equipment to enhance the patient's a functional buddhist Encourage deep breathing exercises and incentive spirometry [...] equipment to enhance the patient's a functional buddhist Ensure adequate nutrition and hydration Sleep no issues Pain: Continue current regimen Discharge planning: Home 03/31. I spent 25 minutes for services, including yqdm-fu-fgcw encounter with the patient, discussion of the case, plan of care, and exam; and ptrjiwc-db-arbz activities, such as reviewing pertinent senior application security consultant documentation, recent therapynotes, laboratory and radiology studies, and discussion of case with care team including physician, nursing, heel caser, and therapists. More than 50 % of time was spent on patient/family counseling or coordination ofcare. Documented By: Albert Swan MD 03/28/24 1154 Signed By: <Electronically signed by Albert Swan MD> 03/28/[address] [facility] Work Phone: 1(962) 490-720907-24-2024 Progress note Author Albert Swan [facility] March 26, 2024 12:58pm Note Date/Time March 26, 2024 11:[address] [facility] [address] [place] [address] Physiatry(Rehab) Progress Note Signed Patient: Bishnu Love MR#: [id number] 1178 : 1945 Acct:[id number] Age/Sex: 78 / M Adm Date: 4 Loc: Room: [address] [place] [address] Type: ADM IN Attending Dr: Albert Swan [...] mg 03/16/24 13:09 Bisacodyl 10 Mg Supp.Rect [place] 03/16/25 13:08 DAILY PRN Constipation Cyclobenzaprine HCl [...] 13:09 Docusate Enema 283 Mg/5 Ml Enema [place] 03/16/25 13:08 DAILY PRN Constipation Enoxaparin Sodium [...] equipment to enhance the patient's a functional buddhist Encourage deep breathing exercises and incentive spirometry [...] equipment to enhance the patient's a functional buddhist Ensure adequate nutrition and hydration Sleep no issues Pain: Continue current regimen Discharge planning: Home 03/31. I spent 28 minutes for services, including pkvx-qr-hnlg encounter with the patient, discussion of the case, plan of care, and exam; and ywsyver-vz-flzd activities, such as reviewing pertinent senior application security consultant documentation, recent therapynotes, laboratory and radiology studies, and discussion of case with care team including physician, nursing, heel caser, and therapists. More than 50 % of time was spent on patient/family counseling or coordination ofcare. Documented By: Albert Swan MD 03/26/24 1144 Signed By: <Electronically signed by Albert Swan MD> 03/26/[address] [facility] Work Phone: 1([phone]) 961-241907-24-2024 Progress note Author Albert Swan [facility] March 26, 2024 10:40am Note Date/Time March 26, 2024 10:[address] [facility] [address] [place] [address] Physiatry(Rehab) Progress Note Signed Patient: Bishnu Love MR#: [id number] 1178 : 1945 Acct:[id number] Age/Sex: 78 / M Adm Date: 4 Loc: Room: [address] [place] [address] Type: ADM IN Attending Dr: Albert Swan [...] mg 03/16/24 13:09 Bisacodyl 10 Mg Supp.Rect [place] 03/16/25 13:08 DAILY PRN Constipation Cyclobenzaprine HCl [...] 13:09 Docusate Enema 283 Mg/5 Ml Enema [place] 03/16/25 13:08 DAILY PRN Constipation Enoxaparin Sodium [...] equipment to enhance the patient's a functional buddhist Encourage deep breathing exercises and incentive spirometry [...] equipment to enhance the patient's a functional buddhist Ensure adequate nutrition and hydration Sleep no issues Pain: Continue current regimen Discharge planning: Home 03/31. I spent 25 minutes for services, including irro-cu-gjbq encounter with the patient, discussion of the case, plan of care, and exam; and lzmklve-pr-rzrb activities, such as reviewing pertinent senior application security consultant documentation, recent therapynotes, laboratory and radiology studies, and discussion of case with care team including physician, nursing, heel caser, and therapists. More than 50 % of time was spent on patient/family counseling or coordination ofcare. Documented By: Albert Swan MD 03/26/24 1033 Signed By: <Electronically signed by Albert Swan MD> 03/26/[address] [facility] Work Phone: 1(659) 975-457007-24-2024 Progress note Author Clara De La Torre [facility] March 26, 2024 7:01am Note Date/Time March 25, 2024 4:[address] [facility] [address] [place] [address] Hospitalist Progress Note Signed Patient: Bishnu Love MR#: [id number] 1178 : 1945 Acct:[id number] Age/Sex: 78 / M Adm Date: 4 Loc: Room: [address] [place] [address] Type: ADM IN Attending Dr: Albert Swan [...] mg 03/16/24 13:09 Bisacodyl 10 Mg Supp.Rect [place] 03/16/25 13:08 DAILY PRN Constipation Cyclobenzaprine HCl [...] 13:09 Docusate Enema 283 Mg/5 Ml Enema [place] 03/16/25 13:08 DAILY PRN Constipation Enoxaparin Sodium [...] 03/17/24 09:00 03/25/24 07:43 Pantoprazole [address] [place] 03/17/25 08:59 [...] Clara De La Torre MD> 03/26/24 0701 [facility] Work Phone: [phone]) 818-272407-22-2024 Progress note Author Albert Swan [facility] March 24, 2024 8:01pm Note Date/Time March 24, 2024 6:[address] [facility] [address] [place] [address] Physiatry(Rehab) Progress Note Signed Patient: Bishnu Love MR#: [id number] 1178 : 1945 Acct:[id number] Age/Sex: 78 / M Adm Date: 4 Loc: Room: [address] [place] [address] Type: ADM IN Attending Dr: Albert Swan [...] mg 03/16/24 13:09 Bisacodyl 10 Mg Supp.Rect [place] 03/16/25 13:08 DAILY PRN Constipation Cyclobenzaprine HCl [...] 13:09 Docusate Enema 283 Mg/5 Ml Enema [place] 03/16/25 13:08 DAILY PRN Constipation Enoxaparin Sodium [...] equipment to enhance the patient's a functional buddhist Encourage deep breathing exercises and incentive spirometry [...] equipment to enhance the patient's a functional buddhist Ensure adequate nutrition and hydration Sleep no issues Pain: Continue current regimen Discharge planning: Home end of week v early next. I spent 26 minutes for services, including wehd-tl-uphs encounter with the patient, discussion of the case, plan of care, and exam; and ofqjelf-rb-puch activities, such as reviewing pertinent senior application security consultant documentation, recent therapynotes, laboratory and radiology studies, and discussion of case with care team including physician, nursing, heel caser, and therapists. More than 50 % of time was spent on patient/family counseling or coordination ofcare. Documented By: Albert Swan MD 03/24/24 933 Signed By: <Electronically signed by Albert Swan MD> 03/24/242000 [facility] Work Phone: 1(854) 125-342207-22-2024 Progress note Author Albert Swan [facility] March 24, 2024 1:12pm Note Date/Time March 22, 2024 11:[address] [facility] [address] [place] [address] Physiatry(Rehab) Progress Note Signed Patient: Bishnu Love MR#: [id number] 1178 : 1945 Acct:[id number] Age/Sex: 78 / M Adm Date: 4 Loc: Room: 1Y5893-7 Type: ADM IN Attending Dr: Albert Swan [...] Allergies and Active Meds: Allergies cephalexin [From [email or web address]] Adverse Reaction (Mild, Verified 03/18/24 18:59) Itching [...] mg 03/16/24 13:09 Bisacodyl 10 Mg Supp.Rect [place] 03/16/25 13:08 DAILY PRN Constipation Cyclobenzaprine HCl [...] 13:09 Docusate Enema 283 Mg/5 Ml Enema [place] 03/16/25 13:08 DAILY PRN Constipation Enoxaparin Sodium [...] equipment to enhance the patient's a functional buddhist Encourage deep breathing exercises and incentive spirometry [...] equipment to enhance the patient's a functional buddhist Ensure adequate nutrition and hydration Sleep no issues Pain: Continue current regimen Discharge planning: Home alone in 7 to 10 days. I spent 21 minutes for services, including isoj-gj-pcuo encounter with the patient, discussion of the case, plan of care, and exam; and foisfmi-hj-qzab activities, such as reviewing pertinent senior application security consultant documentation, recent therapynotes, laboratory and radiology studies, and discussion of case with care team including physician, nursing, heel caser, and therapists. More than 50 % of time was spent on patient/family counseling or coordination ofcare. <Statement entered by Albert Swan MD - 03/24/24 13:12> This documentation has been reviewed and approved. I reviewed the history and the relevant portions of the chart, including currentorders, allied health and senior application security consultant notes, labs/imaging and plan of care as above. Documented By: Glendy Calabrese APRN 03/22/24 1 118 Signed By: <Electronically signed by RALPH Calabrese> 03/22/24 1122 <Electronically signed by Albert Swan MD> 03/24/[address] [facility] Work Phone: 1(175) 478-693807-22-2024 Progress note Author Albert Swan [facility] March 24, 2024 1:12pm Note Date/Time March 24, 2024 12:[address] [facility] [address] [place] [address] Physiatry(Rehab) Progress Note Signed Patient: Bishnu Love MR#: [id number] 1178 : 1945 Acct:[id number] Age/Sex: 78 / M Adm Date: 4 Loc: Room: 8K1659-3 Type: ADM IN Attending Dr: Albert Swan [...] 94 L Room Air 03/24/24 04:09 03/24/24 04:03/24/24 04:03/24/24 04:03/24/24 04:03/24/24 10:12 Narrative: General: [...] mg 03/16/24 13:09 Bisacodyl 10 Mg Supp.Rect [place] 03/16/25 13:08 DAILY PRN Constipation Cyclobenzaprine HCl [...] 13:09 Docusate Enema 283 Mg/5 Ml Enema [place] 03/16/25 13:08 DAILY PRN Constipation Enoxaparin Sodium [...] equipment to enhance the patient's a functional buddhist Encourage deep breathing exercises and incentive spirometry [...] equipment to enhance the patient's a functional buddhist Ensure adequate nutrition and hydration Sleep no issues Pain: Continue current regimen Discharge planning: Home alone in 7 to 10 days. I spent 24 minutes for services, including jdhz-qv-qmdf encounter with the patient, discussion of the case, plan of care, and exam; and ddhfayb-dn-cajp activities, such as reviewing pertinent senior application security consultant documentation, recent therapynotes, laboratory and radiology studies, and discussion of case with care team including physician, nursing, heel caser, and therapists. More than 50 % of time was spent on patient/family counseling or coordination ofcare. <Statement entered by Albert Swan MD - 03/24/24 13:12> This documentation has been reviewed and approved. Patient was personally seen by me, Dr. Swan, on the day of encounter, reviewed the history and the relevant portions of the chart, including current orders, allied health and senior application security consultant notes, labs/imaging and performed sherman elements of exam and I formulated the plan of care and facilitated the medical decision making. I completed a substantive portion of this encounter, the medical decision makingportion of this note in its entirety, including Allied health note review, nursing note review, senior application security consultant note review, discussion with nursing and case management, and more than 50% of my time was spent on counseling and coordination of care, time spent 30 minutes Documented By: Glendy Calabrese APRN 03/24/24 1 206 Signed By: <Electronically signed by RALPH Calabrese> 03/24/24 1211 <Electronically signed by Albert Swan MD> 03/24/[address] [facility] Work Phone: 1(783) 137-644907-19-2024 Progress note Author Camron Carpenter [facility] March 21, 2024 1:37pm Note Date/Time March 21, 2024 1:[address] [facility] [address] [place] [address] Physiatry(Rehab) Progress Note Signed Patient: Bishnu Love MR#: [id number] 1178 : 1945 Acct:[id number] Age/Sex: 78 / M Adm Date: 4 Loc: Room: [address] [place] [address] Type: ADM IN Attending Dr: Albert Swan [...] mg 03/16/24 13:09 Bisacodyl 10 Mg Supp.Rect [place] 03/16/25 13:08 DAILY PRN Constipation Cyclobenzaprine HCl [...] 13:09 Docusate Enema 283 Mg/5 Ml Enema [place] 03/16/25 13:08 DAILY PRN Constipation Enoxaparin Sodium [...] equipment to enhance the patient's a functional buddhist Encourage deep breathing exercises and incentive spirometry [...] equipment to enhance the patient's a functional buddhist Ensure adequate nutrition and hydration Sleep no issues Pain: Continue current regimen Discharge planning: Home alone in 7 to 10 days. I spent 25 minutes for services, including czcc-ri-hzyt encounter with the patient, discussion of the case, plan of care, and exam; and qjzfthr-ib-rplt activities, such as reviewing pertinent senior application security consultant documentation, recent therapynotes, laboratory and radiology studies, and discussion of case with care team including physician, nursing, heel caser, and therapists. More than 50 % of time was spent on patient/family counseling or coordination ofcare. Patient was personally seen by me, Dr. Carpenter, on the day of encounter, reviewed the history and the relevant portions of the chart, including current orders, allied health and senior application security consultant notes, labs/imaging and performed sherman elements of exam and I formulated the plan of care and facilitated the medical decision making. Documented By: Camron Carpenter MD [id number] Signed By: <Electronically signed by Camron Carpenter MD> 03/21/24 6312 [facility] Work Phone: 1(778) 971-139507-18-2024 Progress note Author Albert Swan [facility] March 20, 2024 7:40am Note Date/Time March 19, 2024 12:[address] [facility] [address] [place] [address] Physiatry(Rehab) Progress Note Signed Patient: Bishnu Love MR#: [id number] 1178 : 1945 Acct:[id number] Age/Sex: 78 / M Adm Date: 4 Loc: Room: 1C4168-8 Type: ADM IN Attending Dr: Albert Swan [...] assist with transfers. Review of Systems <Glendy CalabreseRALPH - Last Filed: 03/19/24 12:32> Review of Systems All other systems reviewed & are negative unless noted below or in HPI Exam <Glendy RALPH Calabrese - Last Filed: 03/19/24 12:32> Physical Exam [...] % (Auto) 67.3 Lymph % (Auto) 17.6 Mcintosh % (Auto) 12.8 Eos % (Auto) 1.9 Baso % (Auto) 0.4 Nucleat RBC Rel Count 0.0 Neut # (Auto) 5.1 Lymph # (Auto) 1.3 Mcintosh # (Auto) 1.0 H Eos # (Auto) [...] MPV Neut % (Auto) Lymph % (Auto) Mcintosh % (Auto) Eos % (Auto) Baso % (Auto) Nucleat RBC Rel Count Neut # (Auto) Lymph # (Auto) Mcintosh # (Auto) Eos # (Auto) Baso # [...] mg 03/16/24 13:09 Bisacodyl 10 Mg Supp.Rect [place] 03/16/25 13:08 DAILY PRN Constipation Cyclobenzaprine HCl [...] 13:09 Docusate Enema 283 Mg/5 Ml Enema [place] 03/16/25 13:08 DAILY PRN Constipation Enoxaparin Sodium [...] equipment to enhance the patient's a functional buddhist Encourage deep breathing exercises and incentive spirometry [...] equipment to enhance the patient's a functional buddhist Ensure adequate nutrition and hydration Sleep no issues Pain: Continue current regimen Discharge planning: Home alone in 7 to 10 days. I spent 17 minutes for services, including lcli-ad-lqfz encounter with the patient, discussion of the case, plan of care, and exam; and wsqisex-nx-rktn activities, such as reviewing pertinent senior application security consultant documentation, recent therapynotes, laboratory and radiology studies, and discussion of case with care team including physician, nursing, heel caser, and therapists. More than 50 % [...] equipment to enhance the patient's a functional buddhist Ensure adequate nutrition and hydration Sleep no issues Pain: Continue current regimen Discharge planning: Home alone in 7 to 10 days. I spent 23 minutes for services, including svxj-nk-opwx encounter with the patient, discussion of the case, plan of care, and exam; and knbdgys-qr-bljp activities, such as reviewing pertinent senior application security consultant documentation, recent therapynotes, laboratory and radiology studies, and discussion of case with care team including physician, nursing, heel caser, and therapists. More than 50 % of time was spent on patient/family counseling or coordination ofcare. Patient was personally seen by me, Dr. Swan, on the day of encounter, reviewed the history and the relevant portions of the chart, including current orders, allied health and senior application security consultant notes, labs/imaging and performed sherman elements of exam and I formulated the plan of care and facilitated the medical decision making. Documented By: Glendy Calabrese APRN 03/19/24 1 226 Signed By: <Electronically signed by RALPH Calabrese> 03/19/24 1232 <Electronically signed by Albert Swan MD> 03/20/[address] [facility] Work Phone: 1(871) 212-886607-17-2024 Progress note Author Sharon Ruggiero [facility] March 19, 2024 4:37pm Note Date/Time March 19, 2024 4:[address] [facility] [address] [place] [address] Hospitalist Progress Note Signed Patient: Bishnu Love MR#: [id number] : 1945 Acct:[id number] Age/Sex: 78 / M Adm Date: 4 Loc: 5T Room: [address] [place] [address] Type: ADM IN Attending Dr: Albert Swan MD Copies to: ~ Date of Service: 03/18/2024 Subjective Subjective Narrative: Patient seen and examined on follow up. documentation demonstrated no hypoxia or need for oxygen. COVID positive status with cough and exertional dyspnea upon arrival to [facility]. Ongoing postoperative pain with LLE weakness. Continues [...] mg 03/16/24 13:09 Bisacodyl 10 Mg Supp.Rect [place] 03/16/25 13:08 DAILY PRN Constipation Cephalexin HCl [...] 13:09 Docusate Enema 283 Mg/5 Ml Enema [place] 03/16/25 13:08 DAILY PRN Constipation Enoxaparin Sodium [...] <Electronically signed by RALPH Ruggiero> 03/19/[address] [facility] Work Phone: 1(459) 361-613007-17-2024 Progress note Author Albert wSan [facility] March 19, 2024 12:03pm Note Date/Time March 18, 2024 4:[address] [facility] [address] [place] [address] Physiatry(Rehab) Progress Note Signed Patient: Bishnu Love MR#: [id number] 1178 : 1945 Acct:[id number] Age/Sex: 78 / M Adm Date: 4 Loc: Room: [address] [place] [address] Type: ADM IN Attending Dr: Albert Swan [...] Cloudy A Urine pH 7.5 Ur Specific [place] 1.018 Urine Protein 30 H Urine Glucose [...] Color Urine Appearance Urine pH Ur Specific [place] Urine Protein Urine Glucose (UA) Urine Ketones [...] mg 03/16/24 13:09 Bisacodyl 10 Mg Supp.Rect [place] 03/16/25 13:08 DAILY PRN Constipation Cyclobenzaprine HCl 10 mg 03/16/24 13:07 03/18/24 12:36 Cyclobenzaprine 10 Mg Tablet PO 03/16/25 13:06 10 mg TID PRN Administration muscle spasm Docusate Sodium 100 mg 03/16/24 13:09 03/18/24 07:52 Docusate 100 Mg Capsule PO 03/16/25 13:08 100 mg BID PRN Administration Constipation Docusate Sodium 283 mg 03/16/24 13:09 Docusate Enema 283 Mg/5 Ml Enema [place] 03/16/25 13:08 DAILY PRN Constipation Enoxaparin Sodium 40 mg 03/19/24 10:00 Enoxaparin 40 Mg/0.4 Ml Syringe SUBCUT 03/19/25 09:59 DAILY@1000 [facility] Ferrous Sulfate 324 mg 03/20/24 09:00 [...] equipment to enhance the patient's a functional buddhist Encourage deep breathing exercises and incentive spirometry [...] equipment to enhance the patient's a functional buddhist Ensure adequate nutrition and hydration Sleep no issues Pain: Continue current regimen Discharge planning: Home alone in 7 to 10 days. I spent 25 minutes for services, including cibk-ds-fblb encounter with the patient, discussion of the case, plan of care, and exam; and sgewjuf-mp-osxp activities, such as reviewing pertinent senior application security consultant documentation, recent therapynotes, laboratory and radiology studies, and discussion of case with care team including physician, nursing, heel caser, and therapists. More than 50 % of time was spent on patient/family counseling or coordination ofcare. Documented By: Albert Swan MD 03/18/24 9565 Signed By: <Electronically signed by Albert Swan MD> 03/19/[address] [facility] Work Phone: 1(309) 629-624507-16-2024 Consult note Author Jackelyn Mott [facility] March 18, 2024 12:48pm Note Date/Time March 17, 2024 5:[address] [facility] [address] [place] [address] Hospitalist Consult Note Signed Patient: Bishnu Love MR#: [id number] 1178 : 1945 Acct:[id number] Age/Sex: 78 / M Adm Date: 4 Loc: Room: [address] [place] [address] Type: ADM IN Attending Dr: Albert Swan [...] by therapy services there and transferred to [facility] for ongoing rehabilitative management. Hospitalist team is now consulted for management of chronic conditions including diabetes and hypertension. Nursing did report congestion and wheezing earlier, he was essentially diminished at time of my visit [facility] Medical History Lumbar stenosis Lumbar [...] PO BID 03/16/24 [History Confirmed 03/16/24] omega 8-ldu-vhr-fish oil 1,000 mg (120 mg-180 mg) capsule [...] mg 03/16/24 13:09 Bisacodyl 10 Mg Supp.Rect [place] 03/16/25 13:08 DAILY PRN Constipation Cyclobenzaprine HCl 10 mg 03/16/24 13:07 03/16/24 15:59 Cyclobenzaprine 10 Mg Tablet PO 03/16/25 13:06 10 mg TID PRN Administration muscle spasm Docusate Sodium 100 mg 03/16/24 13:09 Docusate 100 Mg Capsule PO 03/16/25 13:08 BID PRN Constipation Docusate Sodium 283 mg 03/16/24 13:09 Docusate Enema 283 Mg/5 Ml Enema [place] 03/16/25 13:08 DAILY PRN Constipation Ferrous Sulfate [...] 03/17/24 08:20 Pantoprazole 40 Mg Tablet. PO 07/15/25 08:59 40 mg DAILY MARIELOS Administration Sennosides [...] % (Auto) 58.5, Lymph % (Auto) 24.9, Mcintosh % (Auto) 13.0, Eos % (Auto) 3.3, Baso % (Auto) 0.3, Nucleat RBC Rel Count 0.1, Neut # (Auto) 4.1, Lymph # (Auto) 1.8, Mcintosh # (Auto) 0.9 H, Eos # (Auto) [...] PCP and out patient providers to obtain [facility] record entirely to follow up on illnesses, symptoms, abnormal findings that I have and have not addressed duringthis encounter and hospitalization in out patient setting. Documented By: Sharon Ruggiero APRN 03/03 01/24 1500 Signed By: <Electronically signed by RALPH Ruggiero> 03/17/24 1726 <Electronically signed by Jackelyn Mott MD> 03/18/[address] [facility] Work Phone: [phone] 444-788507-16-2024 History and physical note Author Albert Swan [facility] March 18, 2024 11:37am Note Date/Time March 17, 2024 11:[address] [facility] [address] [place] [address] Physiatry (Rehab) H&P Signed Patient: Bisnhu Love MR#: [id number] 1178 : 1945 Acct:[id number] Age/Sex: 78 / M Adm Date: 4 Loc: Room: 7T0202-0 Type: ADM IN Attending Dr: Albert Swan [...] support and can get assistance if necessary. [facility] Medical History Lumbar stenosis Lumbar [...] PO BID 03/16/24 [History Confirmed 03/16/24] omega 3-juk-wzn-fish oil 1,000 mg (120 mg-180 mg) capsule [...] Bisacodyl (Bisacodyl 10 Mg Supp.Rect) 10 mg [place] DAILY PRN PRN Reason: Constipation Stop: 03/16/25 13:08 Cyclobenzaprine HCl (Cyclobenzaprine 10 Mg Tablet) 10 mg PO TID PRN PRN Reason: muscle spasm Stop: 03/16/25 13:06 Last Admin: 03/16/24 15:59 Dose: 10 mg Docusate Sodium (Docusate 100 Mg Capsule) 100 mg PO BID PRN PRN Reason: Constipation Stop: 03/16/25 13:08 Docusate Sodium (Docusate Enema 283 Mg/5 Ml Enema) 283 mg [place] DAILY PRN PRN Reason: Constipation Stop: 03/16/25 13:08 Ferrous Sulfate (Ferrous Sulfate 324 Mg Tablet.) 324 mg PO BID [facility] Stop: 03/16/25 20:59 Last Admin: 03/17/24 08:21 Dose: 324 mg Glimepiride (Glimepiride 1 Mg Tablet) 1 mg PO DAILY.WITH.BKFAST [facility] Stop: 03/17/25 07:59 Last Admin: 03/17/24 08:20 Dose: 1 mg Lactulose (Lactulose 20 Gm/30 Ml Udc) 30 gm PO DAILY PRN PRN Reason: Constipation Stop: 03/16/25 13:08 Lisinopril (Lisinopril 40 Mg Tablet) 40 mg PO DAILY [facility] Stop: 03/17/25 08:59 Last Admin: 03/17/24 08:20 Dose: 40 mg Metoprolol Tartrate (Metoprolol Tartrate 50 Mg Tablet) 50 mg PO BID [facility] Stop: 03/17/25 08:59 Last Admin: 03/17/24 08:20 Dose: 50 mg Oxycodone/Acetaminophen (Oxycodone/Acetaminophen 5-325 Mg Tablet) 1 tab PO [id number] PRN Reason: pain Last Admin: 03/17/24 08:21 Dose: 1 tab Pantoprazole Sodium (Pantoprazole 40 Mg Tablet.) 40 mg PO DAILY [facility] Stop: 03/17/25 08:59 Last Admin: 03/17/24 [...] % (Auto) 58.5 Lymph % (Auto) 24.9 Mcintosh % (Auto) 13.0 Eos % (Auto) 3.3 Baso % (Auto) 0.3 Nucleat RBC Rel Count 0.1 Neut # (Auto) 4.1 Lymph # (Auto) 1.8 Mcintosh # (Auto) 0.9 H Eos # (Auto) [...] MPV Neut % (Auto) Lymph % (Auto) [place] % (Auto) Eos % (Auto) Baso % (Auto) Nucleat RBC Rel Count Neut # (Auto) Lymph # (Auto) Mcintosh # (Auto) Eos # (Auto) Baso # [...] 14 days Expected Discharge Destination: Home Rehabilitation [facility]: 08.9 Primary Diagnosis: s/p lumbar spine fusion [...] 24 hour daily monitoring and intervention from Police Communications Dispatcher as well as other consulting physicians including internal medicine as well as 24 hour daily associate editor nursing - for medical safe / optimal [...] equipment to enhance the patient's a functional buddhist Encourage deep breathing exercises and incentive spirometry [...] equipment to enhance the patient's a functional buddhist Ensure adequate nutrition and hydration Sleep no issues Pain: Continue current regimen Discharge planning: Home alone in 7 to 10 days. I spent 36 minutes for services, including sznl-ut-pqup encounter with the patient, discussion of the case, plan of care, and exam; and bgutixi-mf-rxzb activities, such as reviewing pertinent senior application security consultant documentation, recent therapynotes, laboratory and radiology studies, and discussion of case with care team including physician, nursing, heel caser, and therapists. More than 50 % of time was spent on patient/family counseling or coordination ofcare. I completed a substantive portion of this encounter, the medical decision makingportion of this note in its entirety, including Allied health note review, nursing note review, senior application security consultant note review, discussion with nursing and case management, and more than 50% of my time was spent on counseling and coordination of care, time spent 65 minutes Patient was personally seen by me, Dr. Swan, on the day of encounter, within 24hours of rehab admission, reviewed the history and the relevant portions of the chart, including current orders, allied health and senior application security consultant notes, labs/imaging and performed sherman elements of exam and I formulated the plan of care and facilitated the medical decision making. Documented By: Glendy Calabrese APRN 03/17/24 1 113 Signed By: <Electronically signed by RALPH Calabrese> 03/17/24 1156 <Electronically signed by Albert Swan MD> 03/18/[address] [facility] Work Phone: Evaluation noteNo assessment information available [facility] Work Phone: Evaluation note* Diagnosis Onset Date Resolution Status CKD (chronic kidney disease) acute COVID acute COVID-19 acute Diabetes mellitus acute GERD (gastroesophageal reflux disease) acute Hyperlipemia acute Hypertension acute Impaired mobility and activities of daily living acute Lumbar stenosis acute S/P lumbar fusion acute UTI (urinary tract infection), bacterial acute [facility] Work Phone: Evaluation note* Diagnosis Rash and other nonspecific skin eruption [facility] Diagnosis Encounter for removal of sutures Other atopic dermatitis [facility] Diagnosis Neoplasm of unspecified behavior of bone, soft tissue, and skin Other atopic dermatitis Other seborrheic dermatitis [facility] Diagnosis Other atopic dermatitis- Primary [facility] Diagnosis Other seborrheic dermatitis- Primary Actinic keratosis Seborrheic keratosis Melanocytic nevus of trunk Benign neoplasm of skin of trunk, except scrotum Angioma of skin documented in this encounter [facility] Summary Purpose Family History No Family History Records FoundNo Family History Records FoundNo Family History Records FoundNo Family History Records Found Advance Directives Advance Directive Response Recorded Date/ Time Advance [...] section and content) DATE CREATED AUTHOR 04/30/2020 Everly Woody [facility] DATE CREATED AUTHOR AUTHOR'S ORGANIZ ATION 08/23/2022 [facility] DATE CREATED AUTHOR AUTHOR'S ORGANIZ ATION 06/20/2024 [facility] DATE CREATED AUTHOR AUTHOR'S ORGANIZ ATION 08/01/2024 [facility] EPIC Care Teams (unrecognized sec tion [...] 31, 2024 Albert Swan MD Admit Provider, Attsisi nding Provider Active Start: March 16, 2024 [...] Pedraza RN Other Provider Active Start: Angelica ly 2023 End: March 31, 2024 Jackelyn Mott [...] March 16, 2024 End: March 31, 2024 Nanyc Poon MD Other Provider Active Start : [...] Fournier MD Other Provider Active Start: Angelica ly 2023 End: March 31, 2024 Steve Steinberg MD Other Provider Active Start: Mar End: March 31, 2024 Leta Glass NP-C Other Provider Active St art: March 16, [...] Steele MD Other Provider Active Start: Lexus henrique 2023 End: March 31, 2024 Shimon Stout [...] Antonio Boss MD Other Provider Active Start: y 2023 End: March 31, 2024 Дмитрий Clemons [...] Other Provider Active Start: 2023 Halie Pedraza , MARK Other Provider [...] Other Provider Active Start: Mar Leta Glass , COPPERSMITH APPRENTICE-C Other Provider Active St art: March 24, [...] Other Provider Active Start: 2023 Dk Patino , Other Provider Active [...] may be documented in an alternate section Reason for Visit (unrecogniz ed section and content) Reason Comments Follow-up Reason Comments Suspicious Skin Lesion Reason Comments Eczema Reason Comments Skin Check Rash FOR RECORDS PERTAINING TO PATIENTS WHO ARE [...] BE BASED ON THE PRIMARY CLINICAL RECORDS. [employer] provides no warranty or guarantee of the accuracy or completeness of information in this document.
== END 2024-09-19 09:59 | disposition home or self-care (01) ==
LOC: EC 09:58
PROVIDERS: PCP Family Medicine; Visit Provider Orthopaedic Surgery Orthopaedic Surgery of the Spine
DX: M54.50 Low back pain, unspecified (principal); M43.26 Fusion of spine, lumbar region; M51.369 Other intervertebral disc degeneration, lumbar region without mention of lumbar back pain or lower extremity pain
CPT/HCPCS: 72110

== ENCOUNTER 2025-03-23 10:04 | Outpatient (OUT) | payer MEDICARE, SELFPAY ==
--- OUTSIDE RECORDS SUMMARY | 2024-06-06 07:00 | XMS_ITS ---
Author Organization [facility] Address [address] [place] [address] Care Team Providers Care Vp Site Name Role Phone Abrahan Cota Primary Care Provider Jed Thomas Unavailable [phone] Austin Monte Unavailable [phone] Allergies No Known Allergies REASON FOR VISIT Lumbar recheck Medications Medication SIG (Take, Route, Frequency, Duration) Notes Start Date End Date Status Cyclobenzaprine Hydrochlorid e 10 mg 1 tab(s) orally 3 times a day prn muscle spasms 03/10/2024 Active Encounters Encounter Location Date Provider Diagnosis [facility] Office [address] [place] [address] [place] [address] 06/06/2024 Austin Monte Aftercare following surgery of the musculoskeletal system Z47.89 and Arthrodesis status Z98.1 Assessments Encounter Date Diagnosis (ICD Code) Assessment Notes Treatment Notes Treatment Clinical Notes Section Notes 06/06/2024 Aftercare following surgery of the musculoskeletal system (ICD-10 - Z47.89) 1. 3 months status post L4-5 hardware removal with L2-S1 decompression and L2-5 fusion 06/06/2024 Arthrodesis status (ICD-10 - Z98.1) 1. 3 months status post L4-5 hardware removal with L2-S1 decompression and L2-5 fusion 06/06/2024 Other Plan established by Dr. Sanchez. Patient seen and evaluated by Dr. Sanchez today. He is doing well from a surgical standpoint with no issues. He would like to hold off on any physical therapy. He is okay for activity as tolerated has no set restrictions. We will see him back in 3 months for a 6-month lumbar recheck. The patient is very much in agreement with the treatment and/or diagnostic plan set forth and all questions were answered to the patient's satisfaction. Thanks once again. If we can be of further service to your patients with disorders of the spine, cervical, thoracic, or lumbar, please do not hesitate to contact Dr. Sanchez. Best regards, 1. 3 months status post L4-5 hardware removal with L2-S1 decompression and L2-5 fusion Plan Of Treatment Treatment Notes Assessment Notes Other Plan established by Dr. Sanchez. Patient seen and evaluated by Dr. Sanchez today. He is doing well from a surgical standpoint with no issues. He would like to hold off on any physical therapy. He is okay for activity as tolerated has no set restrictions. We will see him back in 3 months for a 6-month lumbar recheck. The patient is very much in agreement with the treatment and/or diagnostic plan set forth and all questions were answered to the patient's satisfaction. Thanks once again. If we can be of further service to your patients with disorders of the spine, cervical, thoracic, or lumbar, please do not hesitate to contact Dr. Sanchez. Best regards, Pending Test Test Name Order Date Lumbar spine 2v ap and lat - 98930 06/06 Next Appt Details Follow Up: 3 Months, Reason: Provider Name:Jed Gerard , 03/27/2025 12:20:00 PM, [address] [place] [address], [phone], Progress Notes * QUETA QUIROGA WDOB:1945 (79 yo M)Acc No.[id number]:06/06/2024 Patient: QUETA NEAL W Provider: Celena Monte PA-C :1945 A ge:78 Y S ex:Male Date:06/06/2024 Address:[address], [facility] Pcp:Abrahan Cota Subjective: * Chief Complaints: * 1 . Lumbar recheck. * HPI: H PI: Dictated by Austin Monte PA-C The patient returns to the office today 3 months status post L4-5 hardware removal with L2-S1 decompression and L2-5 fusion. He is doing very well from a surgical standpoint. He denies having any significant back pain. No radicular symptoms or numbness tingling. He did have a left leg pain at his last appointment that has been improving. He has been up and walking. He was discharged by home health physical therapy. * ROS: M usculoskeletal: Denies B ack Pain. * Medical History: M edical History Verified. * Surgical History: L 2-S1 laminectomy, L2-5 PSF 03/12/2024. * Family History: N o Family History documented.. * Social History: E xercise regularly D o you exercise? Yes, How many times per week? 3 times, How long do you exercise? 15 min. A PIOTR-C (Standard) D id you have a drink containing alcohol in the past year?: Yes, How often did you have six or more drinks on one occasion in the past year?: Declined to specify (0 point). T obacco Control (Standard) T obacco use:: Former smoker. * Medications: T aking Cyclobenzaprine Hydrochloride 10 mg tablet 1 tab(s) orally 3 times a day prn muscle spasms , Medication List reviewed and reconciled with the patient * Allergies: N .K.D.A. Objective: * Vitals: * Examination: G eneral examination: O n examination, the patient is well-developed, well-nourished, well-groomed, alert and oriented x3, normal mood. Using a cane to ambulate. Well-healed lumbar incision. Limited lumbar ROM. 5/5 muscle strength bilateral lower extremities. Sensory intact lower extremities. X -ray Imaging Studies: X -rays of the lumbar spine, 2 views AP and lateral done in the office today show his instrumentation from L2-5. No complications with the hardware. No signs of any Instability or acute fractures . M RI Imaging Studies: Assessment: * Assessment: 1. A ftercare following surgery of the musculoskeletal system - Z47.89 (Primary) ?2. A rthrodesis status - Z98.1 1. 3 months status post L4-5 hardware removal with L2-S1 decompression and L2-5 fusion. Plan: * Treatment: * Follow Up: 3 Months Forms: * Images: * Electronic signature of Onesimo galvez WILLIAM Monte on 03/23/2025 at 10:09 AM EDT Sign off status: Pending * Provider: Celena Monte PA-C Date: Generated for Wei daley/Jose/Borisitting on: 0 03/23/2025 10:09 AM EDT History and Physical Notes * HPI (History of Present Illness) Category Sub-Category Detail Notes Category Not es HPI Dictated by Austin Monte PA-C The patient returns to the office today 3 months status post L4-5 hardware removal with L2-S1 decompression and L2-5 fusion. He is doing very well from a surgical standpoint. He denies having any significant back pain. No radicular symptoms or numbness tingling. He did have a left leg pain at his last appointment that has been improving. He has been up and walking. He was discharged by home health physical therapy. Examination Category Sub-Category Detail Notes Category Not es General examination On exami nation, the patient is well-developed, well-nourished, well-groomed, alert and oriented x3, normal mood. Using a cane to ambulate. Well-healed lumbar incision. Limited lumbar ROM. 5/5 muscle strength bilateral lower extremities. Sensory intact lower extremities. X-ray Imaging Studies X-rays of the lumbar spine, 2 views AP and lateral done in the office today show his instrumentation from L2-5. No complications with the hardware. No signs of any Instability or acute fractures MRI Imaging Studies
--- OUTSIDE RECORDS SUMMARY | 2024-11-11 10:30 | XMS_ITS ---
Author Organization The [facility] in [place] Address [address] [place] [address] Care Team Providers Care Painter Maintenance Name Role Phone Robbin Cota Primary Care Provider [phone] Allergies No Known Allergies REASON FOR VISIT Medicare Wellnes Medications Medication SIG (Take, Route, Frequency, Duration) Notes Start Date End Date Status Atorvastatin Calcium 10 MG 1 tablet Oral ly Once a day for 90 days 04/09/2024 Active Aspirin Adult Low Strength 81 MG 1 tablet Orally Once a day for 90 days Active Blood Glucose Test Strip Active Blood Glucose Monitor Active Metoprolol Tartrate 50 MG 1 tablet with food Orally Twice a day for 90 days 04/09/2024 Active Pantoprazole Sodium 40 MG 1 tablet Orall y Once a day for 90 days 04/09/2024 Active Omeprazole 20 MG 1 capsule 1/2 to 1 h our before morning meal Orally Once a day for 90 days 07/30/2024 Active Centrum Silver Ultra Mens Active Glimepiride 1 MG 1 tablet with breakf ast or the first main meal of the day Orally Once a day 04/09/2024 Active Flonase Allergy Relief 50 MCG/ACT 1 spray in each nostril Nasally Once a day for 30 days 01/26/2023 Active FeroSul 325 (65 Fe) MG 1 tablet Orally d aily for 90 days Active Social History Tobacco Use: Social History Observation Description Date Details (start date - stop date) Former Smoker NA - 03/03/1986 Tobacco Use/Smoking Question Answer Notes Patient is a former smoker When did you stop smoking? 03/03/1986 How long has it been since you last smoked? > 10 years Vital Signs Weight 243 lbs 11/11/2024 Height 71 in 11/11/2024 Blood pressure systolic 126 mm Hg 11/12/19 25 Blood pressure diastolic 82 mm Hg 025 BMI 33.89 kg/m2 11/11/2024 Encounters Encounter Location Date Provider Diagnosis [facility] [address] [facility] [place] [address] 11/11/2024 Robbin Cota Encounter for [facility] annual wellness exam Z00.00 Assessments Encounter Date Diagnosis (ICD Code) Assessment Notes Treatment Notes Treatment Clinical Notes Section Notes 11/11/2024 Encounter for Medicare annual wellness exam (ICD-10 - Z00.00) Plan Of Treatment No Information Progress Notes * KIMBER Bishnu WDOB:1945 (79 yo M)Acc No.[id number]:11/11/2024 Progress Note Patient: Bishnu NEAL Provider: Bola Cota ([facility])MD :1945 A ge:79 Y S ex:Male Date:11/11/2024 Address:[address] [place] [address] [address], [id number] Check In:02:21 PM ESTCheck O ut:03:22 PM EST Subjective: * Chief Complaints: * Alexa Martinez * HPI: Alexa de jesus Annual Wellness Visit: [facility] (IAWV[facility] Visual Acuity: N /A. Other Providers of Care: C are Team reviewed with patient: Tarik kathleen, and updates made in [place] of Care Physical Activity: D o you exercise regularly? N o Nutrition/Diet: O n a typical day, how many servings of fruits and vegetables do you consume? 2 I n a typical week, how many servings of fried or high fat (such as cheese, fatty meat) do you consume? 7 I n a typical week, how many servings of high fiber or whole grain foods do you consume? 7 Seat Belt: D o you always use your seat belt in your car??Yes A re you having difficulties driving your car??No C an you get to places out of walking distance without help? Y es Dental: H ow would you describe the condition of your mouth and teeth, including any false teeth or dentures? G ood Medication List Follow-Up: D uring the past four weeks, how much bodily pain do you have? N o pain D o you have a current opioid prescription??No Self Assessment of Health: H ow would you rate your overall health the past four weeks? G ood H ow confident are you that you can control and manage most of your health problems? S omewhat confident H ow have things been going for you during the past four weeks? P retty well D uring the past four weeks, was someone available to help you if you needed and wanted help? Y es, as much as I wanted (Example: if you felt nervous, lonely, or blue; got sick and had to stay in bed; needed someone to talk to; help with daily chores; or needed help just taking care of yourself) D o you have any sexual problems? N o D o you have any troubles eating well? N o D o you have any problems with tiredness or fatigue? N o H ave you noticed any hearing difficulties??No Sun Exposure: D o you protect yourself from over exposure to the sun when outdoors? Y es Mental Wellness: D uring the past four weeks, how much have you been bothered by emotional problems such as feeling anxious, depressed, irritable, sad, or downhearted and blue? N ot at all D uring the past four weeks, has your physical and emotional health limited your social activities with family, friends, neighbors, or groups??Not at all Functional Ability and Safety Screening: D o you need assistance with any of the following? Select all that apply. N one D oes your home have rugs in the hallway, lack grab bars in the bathroom, lack handrails on the stairs or have poor lighting? N o D o you feel unsteady and/or dizzy when standing or walking? N o D o you have smoke detectors in your home and routinely change the batteries? Y es D o you have a fire extinguisher and know how to use it properly? Y es D o you have any problems with your living situation, food, transportation, utilities, or safety? N o Cognitive Screening: H ave you experienced any memory issues or problems with thinking? N o H ave your family members, friends, caretakers, or others raised any concerns? N o D o you get confused or easily distracted more than you used to? N o H as your ability to concentrate seem to have declined recently? N o End of Life Planning: D o you have a living will? Y es D o you have a Durable Power of Soccer Referee? Y es W ould you like to discuss this topic today??No SDOH A gree to complete Social Determinants of Health questionnaire Y es W ithin the past 12 months, did you worry that your food would run out before you got money to buy more? N o W ithin the past 12 months, did the food you bought just not last and you didn't have money to buy more? N o W ithin the past 12 months, have you ever stayed: outside, in a car, in a a tent, in an overnight alf, or temporarily in someone else's home??No A re you worried about losing your housing??No W ithin the past 12 months, have you been able to get utilities (heat, electricity) when it was really needed? N o W ithin the past 12 months, has a lack of transportation kept you from medical appointments or from doing things needed for daily living? N o D o you feel physically or emotionally unsafe where you currently live? N o W ould you like help with any of these needs that you have identified? N o DO NOT USE - Vision Screening Questionnaire H ave you had an appointment with your Eye Doctor in the past year? Y es DO NOT USE - ETOH Use: N ever. DO NOT USE - Psychosocial Risks H ave you been experiencing more stress or anxiety than usual? N o A re you experiencing any stress or anxiety about your disease management? N o DO NOT USE - Personal Care Activities H ow difficult is it for you to bathe or clean yourself? N ot difficult H ow difficult is it for you to dress yourself? N ot difficult DO NOT USE - Household Activities H ow difficult is it for you to do routine housework? N ot difficult H ow much does your family help with daily or routine chores? A little DO NOT USE - Daily Activities H ow difficult is it for you to do your own shopping? N ot difficult H ow difficult is it for you to prepare your own food? N ot difficult DO NOT USE - Financial Activities D escribe your ability to plan your daily/monthly budgets and pay your bills: G ood DO NOT USE - Pain Assessment D o you experience pain? N o DO NOT USE - Get Up and Go Evaluation O lion 20 seconds.? DO NOT USE - Discussed Advance Directives P atient has Living Will, Patient has DNR. DO NOT USE - Activities of Daily Living/Home Safety H ow difficult is it for you to get around your house? N ot difficult H ow difficult is it for you to use the toilet by yourself? N ot difficult H ow difficult is it for you to bathe or clean yourself? N ot difficult H ow difficult is it for you to dress yourself? N ot difficult H ow difficult is it for you to do routine housework? N ot difficult H ow much does your family help with daily or routine chores? N ot at all H ow difficult is for you to do your own shopping? N ot difficult H ow difficult is it for you to prepare your own food? N ot difficult D escribe your ability to plan your daily/monthly budgets and pay your bills: G ood A re you currently licensed to drive a vehicle? Y es D o you feel that you are safe in your current home? 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, l umbar region Modified On:05/02/2023U Status:confirmed N48.1 Balanitis Modified On:01/25/2023 Status:confirmed E78.5 Hyperlipidemia Modified On:08/09/2023 Status:confirmed I34.0 Mitral regurgitation Modified On:01/25/2023U Status:confirmed I10 Hypertension Modified On:08/09/2023 Status:confirmed I51.7 Left ventricular hyp ertrophy Modified On:01/25/2023U Status:confirmed G47.00 Insomnia Modified On:01/25/2023U Status:confirmed M51.9 Lumbar disc disease Modified On:10/24/2023U Status:confirmed E66.3 Over weight Modified On:01/25/2023U Status:confirmed D50.9 Anemia, iron deficie ncy Modified On:08/09/2023U Status:confirmed I25.10 Cardiovascular disea se Modified On:10/24/2023U Status:confirmed B35.6 Dermatophytosis, isaias in Modified On:01/25/2023 Status:confirmed M72.0 Dupuytren's contract ure of left hand Modified On:01/25/2023 Status:confirmed I87.2 Chronic venous insuf ficiency Modified On:01/25/2023 Status:confirmed K21.9 Gastro-esophageal re flux disease Modified On:01/25/2023U Status:confirmed M19.90 DA (degenerative art hritis) Modified On:01/25/2023U Status:confirmed E11.9 Diabetes mellitus ty pe 2, diet-controlled Modified On:10/24/2023 Status:confirmed R60.0 Edema of both lower extremities Modified On:01/25/2023U Status:confirmed M54.50 Low back pain at mul tiple sites Modified On:01/25/2023 Status:confirmed R47.1 Dysarthria Modified On:01/25/2023U Status:confirmed I35.1 Aortic insufficiency Modified On:08/09/2023 Status:confirmed K52.9 Gastroenteritis Modified On:01/26/2023 Status:confirmed M79.606 Leg pain Modified On:05/02/2023 Status:confirmed R60.9 Edema Modified On:04/09/2024 Status:confirmed * Medical History: * Surgical History: B [facility] Surgery pedicle screw by dr duke 2012colonscopy [id number] hardware removal and fusion 2023 * Hospitalization/Major Diagno stic Procedure: b [facility] surgery 2012 * Family History: F ather: 78 yrs, Heart Disease, diagnosed with Unspecified heart disease. M other: 76 yrs, Heart Disease, diagnosed with Unspecified heart disease. B rother(s): alive. Sister(s): . D rinku(s): alive. 1 brother(s) , 1 sister(s) . 4 daughter(s) - healthy. . 787. * Social History: T obacco Use: T obacco Use/Smoking P atient is a f ormer smoker W hen did you stop smoking? 0 03/03/1986 H ow long has it been since you last smoked??> 10 years * Medications: T akingAspirin Adult Low Strength(Aspirin) 81 MG Tablet Delayed Release 1 tablet Orally Once a day Atorvastatin Calcium 10 MG Tablet 1 tablet Orally Once a day Blood Glucose Monitor Blood Glucose Test Strip Centrum Silver Ultra Mens FeroSul(Ferrous Sulfate) 325 (65 Fe) MG Tablet 1 tablet Orally daily Flonase Allergy Relief(Fluticasone Propionate) 50 MCG/ACT Suspension 1 spray in each nostril Nasally Once a day Glimepiride 1 MG Tablet 1 tablet with breakfast or the first main meal of the day Orally Once a day Metoprolol Tartrate 50 MG Tablet 1 tablet with food Orally Twice a day Omeprazole 20 MG Capsule Delayed Release 1 capsule 1/2 to 1 hour before morning meal Orally Once a day Pantoprazole Sodium 40 MG Tablet Delayed Release 1 tablet Orally Once a day Taking Aspirin Adult Low Strength(Aspirin) 81 MG Tablet Delayed Release 1 tablet Orally Once a day Taking Atorvastatin Calcium 10 MG Tablet 1 tablet Orally Once a day Taking Blood Glucose Monitor Taking Blood Glucose Test Strip Taking Centrum Silver Ultra Mens Taking FeroSul(Ferrous Sulfate) 325 (65 Fe) MG Tablet 1 tablet Orally daily Taking Flonase Allergy Relief(Fluticasone Propionate) 50 MCG/ACT Suspension 1 spray in each nostril Nasally Once a day Taking Glimepiride 1 MG Tablet 1 tablet with breakfast or the first main meal of the day Orally Once a day Taking Metoprolol Tartrate 50 MG Tablet 1 tablet with food Orally Twice a day Taking Omeprazole 20 MG Capsule Delayed Release 1 capsule 1/2 to 1 hour before morning meal Orally Once a day Taking Pantoprazole Sodium 40 MG Tablet Delayed Release 1 tablet Orally Once a day DiscontinuedAldactone(Spironolactone) 25 MG Tablet 1 tablet Orally once daily Amoxicillin-Pot Clavulanate 875-125 MG Tablet 1 tablet Orally every 12 hrs predniSONE 10 MG (48) Tablet Therapy Pack as directed Orally 5 a day/3day 4 a day/3 days 3 a day 3/ days 2 a day 3/ days 1 a day 3/days 1/2 a day 3/days Medication List reviewed and reconciled with the patientDiscontinued Aldactone(Spironolactone) 25 MG Tablet 1 tablet Orally once daily Discontinued Amoxicillin-Pot Clavulanate 875- 125 MG Tablet 1 tablet Orally every 12 hrs Discontinued predniSONE 10 MG (48) Tablet Therapy Pack as directed Orally 5 a day/3day 4 a day/3 days 3 a day 3/ days 2 a day 3/ days 1 a day 3/days 1/2 a day 3/days Medication List reviewed and reconciled with the patient * Allergies: N .K.D.A.no[Allergies Verified] Objective: * Vitals: W t:243lbs, Ht: 71 in, BP:126/82mm Hg, BMI:33.89Index, Ht-cm: 180.34 cm, Wt-k.22 kg. Assessment: * [facility]. [facility] - Z00.00 (Primary) Plan: * Treatment: * Procedure Codes: G 0438 ANNUAL WELL VISIT;INITIAL * Preventive Medicine: Screenings/Counseling: B DE ACTION PLAN Above Normal BMI Follow-up D ietary management education, guidance, and counseling F ALL RISK SCREENING Fall Risk Assessment: N o falls in the past year Are you afraid of falling? N o * * Sign off status: Completed Visit Status: C HK (Check Out) true * Provider: Bola Cota ([facility])MD Date: 0 11/11/2024 Generated for Sergeyi edi/Jose/Borisitting on: 0 03/23/2025 10:09 AM EDT History and Physical Notes * HPI (History of Present Illness) Category Sub-Category Detail Notes Category Not es Medicare Annual Wellness Visit Type of Visit: Initial Annual Wellness Visi t (IAWV) DO NOT USE - Pain Assessment Do you experience p ain?: No DO NOT USE - Hearing Screening DO NOT USE - Psychosocial Risks Have you been experiencing more stress or anxiety than usual?: No Are you experiencing any stress or anxie ty about your disease management?: No Cognitive Screening: Have you experience d any memory issues or problems with thinking?: No Have your family members, fr iends, caretakers, or others raised any concerns?: No Do you get confused or easily distracted more than you used to?: No Has your ability to concentrate seem to have declined recently?: No Self Assessment of Health: How would you rate your overall health the past four weeks?: Good How confident are you that y ou can control and manage most of your health problems?: Somewhat confident How have things been going f or you during the past four weeks?: Pretty well During the past four weeks, was someone available to help you if you needed and wanted help?: Yes, as much as I wanted (Example: if you felt nervous, lonely, o r blue; got sick and had to stay in bed; needed someone to talk to; help with daily chores; or needed help just taking care of yourself) Do you have any sexual problems?: No Do you have any troubles eating well?: N o Do you have any problems wit h tiredness or fatigue?: No Have you noticed any hearing difficulties?: No DO NOT USE - Activities of D aily Living/Home Safety How difficult is it for you to get around your house?: Not difficult How difficult is it for you to use the t oilet by yourself?: Not difficult How difficult is it for you to bathe or clean yourself?: Not difficult How difficult is it for you to dress you rself?: Not difficult How difficult is it for you to do routin e housework?: Not difficult How much does your family help with matthew y or routine chores?: Not at all How difficult is for you to do your own shopping?: Not difficult How difficult is it for you to prepare y our own food?: Not difficult Describe your ability to ijeoma n your daily/monthly budgets and pay your bills:: Good Are you currently licensed to drive a [employer] hicle?: Yes Do you feel that you are safe in your cu rrent home?: Yes DO NOT USE - Get Up and Go Evaluation Ov er 20 seconds DO NOT USE - Discussed Advance Directive s Patient has Living Will, Patient has DNR Physical Activity: Do you exercise regularly?: N o DO NOT USE - Personal Care Activities Ho w difficult is it for you to bathe or clean yourself?: Not difficult How difficult is it for you to dress you rself?: Not difficult DO NOT USE - Household Activities How di fficult is it for you to do routine housework?: Not difficult How much does your family help with matthew y or routine chores?: A little DO NOT USE - Daily Activities How diffic ult is it for you to do your own shopping?: Not difficult How difficult is it for you to prepare y our own food?: Not difficult DO NOT USE - Financial Activities Descri be your ability to plan your daily/monthly budgets and pay your bills:: Good Functional Ability and Safety Screening: Do you need assistance with any of the following? Select all that apply.: None Does your home have rugs in the hallway, lack grab bars in the bathroom, lack handrails on the stairs or have poor lighting?: No Do you feel unsteady and/or dizzy when s tanding or walking?: No Do you have smoke detectors in your home and routinely change the batteries?: Yes Do you have a fire extinguisher and know how to use it properly?: Yes Do you have any problems wit h your living situation, food, transportation, utilities, or safety?: No DO NOT USE - Vision Screening Questionna gregg Have you had an appointment with your Eye Doctor in the past year? : Yes Visual Acuity: N/A DO NOT USE - ETOH Use: Never Nutrition/Diet: On a typical day, ho w many servings of fruits and vegetables do you consume?: 2 In a typical week, how many servings of fried or high fat (such as cheese, fatty meat) do you consume?: 7 In a typical week, how many servings of high fiber or whole grain foods do you consume?: 7 Seat Belt: Do you always use your seat belt in your car?: Yes Are you having difficulties driving your car?: No Can you get to places out of walking dis tance without help?: Yes Dental: How would you descri be the condition of your mouth and teeth, including any false teeth or dentures?: Good Medication List Follow-Up: During the st four weeks, how much bodily pain do you have?: No pain Do you have a current opioid prescriptio n?: No Mental Wellness: During the past four weeks, how much have you been bothered by emotional problems such as feeling anxious, depressed, irritable, sad, or downhearted and blue?: Not at all During the past four weeks, has your physical and emotional health limited your social activities with family, friends, neighbors, or groups?: Not at all Sun Exposure: Do you protect yours elf from over exposure to the sun when outdoors?: Yes End of Life Planning: Do you have a living will? : Yes Do you have a Durable Power of Soccer Referee? : Yes Would you like to discuss this topic tod ay?: No Other Providers of Care: Care Team darren underwood with patient:: Yes, and updates made in [facility] Agree to complete [facility] Determinants of Health questionnaire: Yes Within the past 12 months, did you worry that your food would run out before you got money to buy more?: No Within the past 12 months, did the food you bought just not last and you didn't have money to buy more?: No Within the past 12 months, have you ever stayed: outside, in a car, in a a tent, in an overnight alf, or temporarily in someone else's home?: No Are you worried about losing your housing?: No Within the past 12 months, have you been able to get utilities (heat, electricity) when it was really needed?: No Within the past 12 months, has a lack of transportation kept you from medical appointments or from doing things needed for daily living?: No Do you feel physically or emotionally unsafe where you currently live?: No Would you like help with any of these needs that you have identified?: No
--- OUTSIDE RECORDS SUMMARY | 2025-03-17 09:01 | XMS_ITS ---
Author Organization The [facility] in [place] Address [address] [place] [address] Care Team Providers Care Math And Science Instructor Name Role Phone Robbin Cota Primary Care Provider REASON FOR VISIT yearly labs Encounters Encounter Location Date Provider Diagnosis [facility] [address] [place] [address] 03/17/2025 Robbin Cota Hyperlipidemia E78.5 ; Anemia, iron deficiency D50.9 ; Diabetes mellitus type 2, diet-controlled E11.9 ; Fatigue R53.83 ; Colon cancer screening Z12.11 and Encounter for prostate cancer screening Z12.5 Assessments Encounter Date Diagnosis (ICD Code) Assessment Notes Treatment Notes Treatment Clinical Notes Section Notes 03/17/2025 Hyperlipidemia (ICD-10 - E78.5) 03/17/2025 Anemia, iron deficiency (ICD-10 - D50.9) 03/17/2025 Diabetes mellitus type 2, diet-controlled (ICD-10 - E11.9) 03/17/2025 Fatigue (ICD-10 - R53.83) 03/17/2025 Colon cancer screening (ICD-10 - Z12.11) 03/17/2025 Encounter for prostate cancer screening (ICD-10 - Z12.5) Plan Of Treatment Pending Test Test Name Order Date FECAL OCCULT BLOOD 03/17/2025 CBC AUTO DIFF 03/17/2025 GLYCOHEMOGLOBIN A1C 03/17/2025 LIPID PROFILE 03/17/2025 PROF 14(COMP METB) 03/17/2025 THYROID PANEL (T4/TSH/FREE T3) PSA Total+% Free 03/17/2025 Progress Notes * Bishnu LOVE WDOB:1945 (79 yo M)Acc No.[id number]:03/17/2025 Patient: Bishnu NEAL :1945 A ge:79 Y S ex:Male Address:[address] [place] [address] [place] [phone] Subjective: * Chief Complaints: * Y early labs * Medical History: * Surgical History: * Hospitalization/Major Diagno stic Procedure: * Medications: Objective: * Vitals: * Physical Examination: Assessment: * Assessment: 1. H yperlipidemia - E78.5 (Primary) 2 . A nemia, iron deficiency - D50.9? 3. D iabetes mellitus type 2, diet-controlled - E11.9 4 . F atigue - R53.83 5 . C olon cancer screening - Z12.11 6 . E ncounter for prostate cancer screening - Z12.5 Plan: * Treatment: 2. D iabetes mellitus type 2, diet-controlled L AB: GLYCOHEMOGLOBIN A1C 3. F atigue L AB: CBC AUTO DIFF L AB: PROF 14(COMP METB) L AB: THYROID PANEL (T4/TSH/FREE T3) 4. C olon cancer screening L AB: FECAL OCCULT BLOOD 5. E ncounter for prostate cancer screening L AB: PSA Total+% Free * Procedure Codes: * true * Date: Generated for Printi ng/Fanormag/eTransmitting on: 0 03/23/2025 10:08 AM EDT
--- OUTSIDE RECORDS SUMMARY | 2025-03-20 07:20 | XMS_ITS ---
Author Organization [facility] Address [address] [place] [address] Care Team Providers Care Tool And Equipment Rental Clerk Name Role Phone Abrahan Cota Primary Care Provider Unavailzainab adi Jed Weiss Unavailable [phone] REASON FOR VISIT LUMBAR RECHECK Encounters Encounter Location Date Provider Diagnosis [facility] [address] [facility] [place] [address] [place] [address] 03/20/2025 Jed Weiss Plan Of Treatment Next Appt Details Provider Name:Jed Tamica Garcia, 03/27/2025 12:20:00 PM, [address] [place] [address], [phone], Progress Notes * QUETA QUIROGA WDOB:1945 (79 yo M)Acc No.[id number]:03/20/2025 Patient: Hanh AMAYA QUETA Guerrero Provider: Savannah Sanchez MD, PhD :1945 A ge:79 Y S ex:Male Date:03/20/2025 Address:[address] [facility] [address], [facility] Pcp:Abrahan Cota Subjective: * Chief Complaints: * 1 . LUMBAR RECHECK. * Medical History: Objective: * Vitals: Assessment: Plan: * Treatment: Forms: * Images: * Electronic signature of Gareth Weiss MD, PHD on 03/23/2025 at 10:08 AM EDT Sign off status: Pending * Provider: Savannah Sanchez MD, PhD Date: 0 03/20/2025 Generated for Wei daley/Jose/Nicole on: 0 03/23/2025 10:08 AM EDT
--- OUTSIDE RECORDS SUMMARY | 2025-03-23 10:09 | XMS_ITS | Patient Health Record ---
Author Organization [facility] Address [address] [place] [address] Care Team Providers Care Warehouse Associate Name Role Phone Abrahan Cota Primary Care Provider Unavailzainab Jed [place] Unavailable [phone] [place] Unavailable [phone] Priscilla Conroy Unavailable Reason For Referral No Information Medications Medication SIG (Take, Route, Frequency, Duration) Notes Start Date End Date Status Cyclobenzaprine Hydrochlorid e 10 mg 1 tab(s) orally 3 times a day prn muscle spasms 03/10/2024 Active Problems Problem Type SNOMED Code ICD Code Onset Dates Problem Status W/U Status Risk Notes Problem 667239379 Aftercare following surgery of the musculoskeletal system (Z47.89) Active confirmed Problem 377867883 Arthrodesis stat us (Z98.1) Active confirmed Problem 99768757 Muscle weakness (M62.81) Active confirmed Problem 494464655 Spinal stenosis, lumbosacral region (M48.07) Active confirmed Problem 87259817 Other intervertebral disc degeneration, 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 [place] [address] 06/06/2024 Austin Mell Aftercare following surgery of the musculoskeletal system Z47.89 and Arthrodesis status Z98.1 [facility] [address] [facility] [place] [address] 04/18/2024 [facility] Aftercare following surgery of the musculoskeletal system Z47.89 and Arthrodesis status Z98.1 [facility] [address] [facility] [place] [address] 09/19/2024 Priscilla [facility] Aftercare following surgery of the musculoskeletal system Z47.89 ; Muscle weakness M62.81 and Arthrodesis status Z98.1 [facility] [address] [place], [place] [phone] 02/26/2025 Jed Weiss Assessments Encounter Date Diagnosis (ICD Code) Assessment Notes Treatment Notes Treatment Clinical Notes Section Notes 04/18/2024 Aftercare following surgery of the musculoskeletal system (ICD-10 - Z47.89) 1. 6 weeks s/p hardware removal L4-5, L2-S1 decompression, L2-5 posterior fusion 06/06/2024 Aftercare following surgery of the musculoskeletal system (ICD-10 - Z47.89) 1. 3 months status post L4-5 hardware removal with L2-S1 decompression and L2-5 fusion 09/19/2024 Aftercare following surgery of the musculoskeletal system (ICD-10 - Z47.89) 1. 6 months s/p HWR L4-5, L2-S1 decompression, L2-5 fusion 09/19/2024 Muscle weakness (ICD-10 - M62.81) 1. 6 months s/ p HWR L4-5, L2-S1 decompression, L2-5 fusion 09/19/2024 Arthrodesis status (ICD-10 - Z98.1) 1. 6 months s/p HWR L4-5, L2-S1 decompression, L2-5 fusion 06/06/2024 Arthrodesis status (ICD-10 - Z98.1) 1. 3 months status post L4-5 hardware removal with L2-S1 decompression and L2-5 fusion 04/18/2024 Arthrodesis status (ICD-10 - Z98.1) 1. 6 weeks s/p hardware removal L4-5, L2-S1 decompression, L2-5 posterior fusion 06/06/2024 Other Plan established by Dr. [...] removal with L2-S1 decompression and L2-5 fusion 04/18/2024 Other Patient is doing well from a postoperative standpoint. We will see him back in 6 weeks for his next postop recheck. The patient is very much in agreement with the treatment and/or diagnostic plan set forth and all questions were answered to the patient's satisfaction. Thanks once again. If we can be of further service to your patients with disorders of the spine, cervical, thoracic, or lumbar, please do not hesitate to contact Dr. Sanchez. Best regards, 1. 6 weeks s/p hardware removal L4-5, L2-S1 decompression, L2-5 posterior fusion 09/19/2024 Other Plan established by Dr. Sanchez. Patient evaluated by myself and Dr. Sanchez today. Patient is doing well postoperatively. He is still having some left lower extremity weakness. If not improving we can consider physical therapy if patient would be amendable to this. We will see him back in 6 months for his next postop recheck. The patient is very much in agreement with the treatment and/or diagnostic plan set forth and all questions were answered to the patient's satisfaction. Thanks once again. If we can be of further service to your patients with disorders of the spine, cervical, thoracic, or lumbar, please do not hesitate to contact Dr. Sanchez. Best regards, 1. 6 months s/p HWR L4-5, L2-S1 decompression, L2-5 fusion Plan Of Treatment Pending Test Test Name Order Date Lumbar spine, 4v flex ext - 19556 2023 Lumbar spine, 4v flex ext - 90113 2024 Lumbar spine 2v ap and lat - 77520 04/18 Lumbar spine 2v ap and lat - 99384 06/06 Surgery Scheduling 02/12/2024 DME - Lumbar Support, Surgical OTS 03/10 SFS - Lumbar Spine PT Order, Isometrics & Strenghening w/Modalities as needed, 2-3 times per week for 6 weeks 01/04/2024 Type and Cross Blood 2 units 03/10/2024 BONE STIMULATOR 03/10/2024 MRI LUMBAR WITHOUT CONTRAST 12/07/2023 Future Test Test Name Order Date Chest 2 views - 18976 02/12/2024 CBC 02/12/2024 HGB A1C 02/12/2024 PT/PTT 02/12/2024 BMP 02/12/2024 MRSA (Bilateral Nares) PCR 02/12/2024 EKG 02/12/2024 Next Appt Details Provider Name:Jed Gerard air, 03/27/2025 12:20:00 PM, [address] [place] [address], [place], [address], Insurance Providers Payer Name Payer Address Payer Phone Subscriber Number Group Number Insured Name Patient Relationship to Insured Coverage Start Date Coverage End Date [employer] [address] [address] [place] [address] [id number] QUETA QUIROGA Self - patient is the insured [facility] [address] [place] [address] [id number] QUETA QUIROGA Self - patient is the insured Medical (General) History Surgical History Surgery Date(Month/Year) L2-S1 laminectomy, L2-5 PSF 03/12/2024
--- OUTSIDE RECORDS SUMMARY | 2025-03-23 10:09 | XMS_ITS | Patient Health Record ---
Author Organization The [facility] in [place] Address [address] [place] [address] Care Team Providers Care Computer Methods Analyst Name Role Phone Robbin Liz Primary Care Provider [phone] Allergies No Known Allergies Results Component Value Reference Range Notes US venous doppler LE BI Reviewed date:04/10/2024 06:16:45 PM Interpretation: Performing Lab: Notes/Report: Source Facility: [place] [address] Ultrasound Report Signed Patient: QUETA LOVE MR#: [id number] : 1945 Acct:[id number] Age/Sex: 78 / M ADM Date: 04/09/24 Loc: US Attending Dr: Kaitlynn Liz M.D. Ordering Physician: Kaitlynn Liz M.D. Date of Service: 04/09/24 Procedure(s): US venous doppler LE BI Accession Number(s): [id number] cc: Kaitlynn Liz M.D. [place] [address] Patient Name: QUETA LOVE MRN: [id number] date: 1945 Sex: M Assigned Patient Location: US Current Patient Location: Accession/Order Number: [id number] Exam Date: 04/09/2024 15:25 Report Date: 04/10/2024 05:38 At the request of: KAITLYNN LIZ Procedure: US venous doppler LE BI EXAMINATION: US venous doppler LE BI HISTORY: Edema R60.9 COMPARISON: None FINDINGS: REGION: Bilateral lower extremities THROMBI: None. COMPRESSIBILITY: Normal compressibility. FLOW: Normal waveform and antegrade flow between 5 and 20 cm/s. OTHER: Prior stripping of great saphenous vein. US/US venous doppler LE BI IMPRESSION: 1. No deep vein thrombus within the right or left lower extremity. Electronically authenticated by: CHELE PALAFOX Date: 04/10/2024 05:38 Dictated By: Chele Palafox M.D. Signed By: 04/10/24539 DD/ 7 TD/TT: Card Reader: [place] [address] Ultrasound Report Signed Patient: QUETA LOVE MR#: [id number] : 1945 Acct:[id number] Age/Sex: 78 / M ADM Date: 04/09/24 Loc: US Attending Dr: Kaitlynn Liz M.D. Ordering Physician: Kaitlynn Liz M.D. Date of Service: 04/09/24 Procedure(s): US jose ous doppler LE BI Accession Number(s): [id number] cc: Kaitlynn Liz M.D. [place] [id number] Patient Name: QUETA LOVE MRN: [id number] date: 1945 Sex: M Assigned Patient Location: US Current Patient Location: Accession/Order Numb er: [id number] Exam Date: 04/09/2024 15:25 Report Date: 04/10/2024 05:38 At the request of: KAITLYNN LIZ Procedure: US venous doppler LE BI EXAMINATION: US veno us doppler LE BI HISTORY: Edema R60.9 COMPARISON: None FINDINGS: REGION: Bilateral lo wer extremities THROMBI: None. COMPRESSIBILITY: Nor mal compressibility. FLOW: Normal wavefor m and antegrade flow between 5 and 20 cm/s. OTHER: Prior strippi ng of great saphenous vein. U S/US venous doppler LE BI IMPRESSION: 1. No deep vein thro mbus within the right or left lower extremity. Electronically authe nticated by: CHELE PALAFOX Date: 04/10/2024 05:38 Dictated By: Chele Palafox M.D. Signed By: 04/10/24 0540 DD/ 0538 TD/TT: Card Reader: XR lumbar spine min 4V Reviewed date:09/23/2024 01:21:31 PM Interpretation: Performing Lab: Notes/Report: Source Facility: [place] [address] XRay Report Signed Patient: QUETA LOVE MR#: [id number] : 1945 Acct:[id number] Age/Sex: 79 / M ADM Date: 09/19/24 Loc: EC Attending Dr: Gita Magana M.D. Ordering Physician: Gita Magana M.D. Date of Service: 09/19/24 Procedure(s): XR lumbar spine min 4V Accession Number(s): [id number] cc: Kaitlynn Liz M.D.; Gita Magana M.D. [place] [address] Patient Name: QUETA LOVE MRN: [id number] date: 1945 Sex: M Assigned Patient Location: Current Patient Location: Accession/Order Number: [id number] Exam Date: 09/19/2024 10:50 Report Date: 09/22/2024 21:24 At the request of: GITA MAGANA Procedure: XR lumbar spine min 4V EXAM: XR lumbar spine min 4V HISTORY: LUMBAR SPINE PAIN COMPARISON: 12/07/2023 FINDINGS/IMPRESSION: 1. No acute fracture or dislocation. 2. Posterior spinal fusion hardware at L2-L3, L4 and L4-5 with bilateral pedicle screws and interconnecting rods. 3. 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 4. Retrolisthesis of L1 on L2 measuring 0.5 cm. No instability on flexion-extension views. 5. Moderate disc degeneration at T10-T11 and T11-T12. 6. Overlying bowel gas pattern is nonspecific and nonobstructive. Electronically authenticated by: SENTHIL MONTALVO Date: 09/22/2024 21:24 Dictated By: Senthil Montalvo M.D. Signed By: 09/22/242125 DD/ 23 TD/TT: Card Reader: [place] [address] XRay Report Signed Patient: QUETA LOVE MR#: [id number] : 1945 Acct:[id number] Age/Sex: 79 / M ADM Date: 09/19/24 Loc: EC Attending Dr: Gita Magana M.D. Ordering Physician: Gita Magana M.D. Date of Service: 09/19/24 Procedure(s): XR lum bar spine min 4V Accession Number(s): [id number] cc: Kaitlynn Liz M.D. ; Gita Magana M.D. [place] [id number] Patient Name: QUETA LOVE MRN: [id number] date: 1945 Sex: M Assigned Patient Location: Current Patient Location: Accession/Order Numb er: [id number] Exam Date: 09/19/2024 10:50 Report Date: 09/22/2024 21:24 At the request of: GITA MAGANA Procedure: XR lumbar spine min 4V EXAM: XR lumbar spine min 4V HISTORY: LUMBAR SPINE PAIN COMPARISON: 12/07/2023 FINDINGS/IMPRESSION: 1. No acute fracture or dislocation. 2. Posterior spinal fusion hardware at L2-L3, L4 and L4-5 with bilateral pedicle screws and interconnecting rods. 3. Moderate disc deg eneration at T12-L1 and L1-L2. 4. Retrolisthesis of L1 on L2 measuring 0.5 cm. No instability on flexion-extension views. 5. Moderate disc deg eneration at T10-T11 and T11-T12. 6. Overlying bowel g as pattern is nonspecific and nonobstructive. Electronically authe nticated by: SENTHIL MONTALVO Date: 09/22/2024 21:24 Dictated By: Senthil Montalvo M.D. Signed By: 09/22/242125 DD/ 23 TD/TT: Card Reader: XR lumbar spine 2-3V Reviewed date:06/09/2024 08:39:19 PM Interpretation: Performing Lab: Notes/Report: Source Facility: [place] [address] XRay Report Signed Patient: QUETA LOVE MR#: [id number] : 1945 Acct:[id number] Age/Sex: 78 / M ADM Date: 06/06/24 Loc: EC Attending Dr: Gita Magana M.D. Ordering Physician: Gita Magana M.D. Date of Service: 06/06/24 Procedure(s): XR lumbar spine 2-3V Accession Number(s): [id number] cc: Kaitlynn Liz M.D.; Gita Magana M.D. [place] [address] Patient Name: QUETA LOVE MRN: [id number] date: 1945 Sex: M Assigned Patient Location: Current Patient Location: Accession/Order Number: [id number] Exam Date: 06/06/2024 11:27 Report Date: 06/08/2024 07:24 At the request of: GITA MAGANA Procedure: XR lumbar spine 2-3V EXAMINATION: XR lumbar spine 2-3V HISTORY: LUMBAR SPINE PAIN COMPARISON: XR lumbar spine 04/18/2024 FINDINGS: BONES: Posterior mechanical fusion and osseous facet fusion L2-L5 via bilateral pedicle screws and rods; no appreciable hardware fracture loosening. Minimal grade 1 retrolisthesis of L2 on 3. Posterior decompression L2-L5. DISC SPACES: Moderate narrowing L2-L3 and L5-S1. Mild narrowing at remaining levels. Intervertebral disc spacer at L4-L5. PARASPINOUS: Negative. No paraspinous abnormality is seen. OTHER: Negative. XR/XR lumbar spine 2-3V IMPRESSION: 1. Stable surgical changes without evidence of hardware failure or change in alignment. 2. Stable degenerative changes. Electronically authenticated by: CHELE PALAFOX Date: 06/08/2024 07:24 Dictated By: Chele Palafox M.D. Signed By: 06/08/24726 DD/ 3 TD/TT: Card Reader: [place] [address] XRay Report Signed Patient: QUETA LOVE MR#: [id number] : 1945 Acct:[id number] Age/Sex: 78 / M ADM Date: 06/06/24 Loc: EC Attending Dr: Gita Magana M.D. Ordering Physician: Gita Magana M.D. Date of Service: 06/06/24 Procedure(s): XR lum bar spine 2-3V Accession Number(s): [id number] cc: Kaitlynn Liz M.D. ; Gita Magana M.D. [place] [address] Patient Name: QUETA LOVE MRN: [id number] date: 1945 Sex: M Assigned Patient Location: Current Patient Location: Accession/Order Numb er: [id number] Exam Date: 11:27 Report Date: 06/08/2024 07:24 At the request of: GITA MAGANA Procedure: XR lumbar spine 2-3V EXAMINATION: XR lumb ar spine 2-3V HISTORY: LUMBAR SPINE PAIN COMPARISON: XR lumba r spine 04/18/2024 FINDINGS: BONES: Posterior mec hanical fusion and osseous facet fusion L2-L5 via bilateral pedicle screws and r ods; no appreciable hardware fracture loosening. Minimal grade 1 retrolisthes is of L2 on 3. Posterior decompression L2-L5. DISC SPACES: Moderat e narrowing L2-L3 and L5-S1. Mild narrowing at remaining levels. Intervertebr al disc spacer at L4-L5. PARASPINOUS: Negativ e. No paraspinous abnormality is seen. OTHER: Negative. X R/XR lumbar spine 2-3V IMPRESSION: 1. Stable surgical c hanges without evidence of hardware failure or change in alignment. 2. Stable degenerative changes. Electronically authe nticated by: CHELE PALAFOX Date: 06/08/2024 07:24 Dictated By: Chele Palafox M.D. Signed By: 06/08/24726 DD/ 3 TD/TT: Card Reader: XR lumbar spine 2-3V Reviewed date:04/21/2024 09:08:35 PM Interpretation: Performing Lab: Notes/Report: Source Facility: [place] [address] XRay Report Signed Patient: QUETA LOVE MR#: [id number] : 1945 Acct:[id number] Age/Sex: 78 / M ADM Date: 04/18/24 Loc: EC Attending Dr: Gita Magana M.D. Ordering Physician: Gita Magana M.D. Date of Service: 04/18/24 Procedure(s): XR lumbar spine 2-3V Accession Number(s): [id number] cc: Kaitlynn Liz M.D.; Gita Magana M.D. [place] [address] Patient Name: QUETA LOVE MRN: [id number] date: 1945 Sex: M Assigned Patient Location: Current Patient Location: Accession/Order Number: [id number] Exam Date: 04/18/2024 09:59 Report Date: 04/21/2024 11:06 At the request of: GITA MAGANA Procedure: XR lumbar spine 2-3V EXAMINATION: XR lumbar spine 2-3V HISTORY: LUMBAR SPINE PAIN COMPARISON: XR lumbar spine 12/07/2023 FINDINGS: BONES: Posterior mechanical fusion L2-L5 via bilateral pedicle screws and rods. Minimal grade 1 retrolisthesis of L2 on 3. Multilevel moderate degenerative facet arthropathy with bone encroachment neural foramen. Prior osseous fusion of the facet joints. Posterior decompression L2-L5. DISC SPACES: Intervertebral spacer at L4-L5. Marked narrowing L2-L3. Moderate narrowing L1-L2, L5-S1. PARASPINOUS: Negative. No paraspinous abnormality is seen. OTHER: Negative. XR/XR lumbar spine 2-3V IMPRESSION: 1. Interval revision of lumbar spine fusion and posterior decompression as detailed above. Electronically authenticated by: CHELE PALAFOX Date: 04/21/2024 11:06 Dictated By: Chele Palafox M.D. Signed By: 04/21/24 1108 DD/ 1106 TD/TT: Card Reader: [place] [address] XRay Report Signed Patient: QUETA LOVE MR#: [id number] : 1945 Acct:[id number] Age/Sex: 78 / M ADM Date: 04/18/24 Loc: EC Attending Dr: Gita Magana M.D. Ordering Physician: Gita Magana M.D. Date of Service: 04/18/24 Procedure(s): XR lum bar spine 2-3V Accession Number(s): [id number] cc: Kaitlynn Liz M.D. ; Gita Magana M.D. [place] [address] Patient Name: QUETA LOVE MRN: [id number] date: 1945 Sex: M Assigned Patient Location: Current Patient Location: Accession/Order Numb er: [id number] Exam Date: 04/18/2024 09:59 Report Date: 04/21/2024 11:06 At the request of: GITA MAGANA Procedure: XR lumbar spine 2-3V EXAMINATION: XR lumb ar spine 2-3V HISTORY: LUMBAR SPINE PAIN COMPARISON: XR lumba r spine 12/07/2023 FINDINGS: BONES: Posterior mec hanical fusion L2-L5 via bilateral pedicle screws and rods. Minimal grade 1 retr olisthesis of L2 on 3. Multilevel moderate degenerative facet arthropathy wi th bone encroachment neural foramen. Prior osseous fusion of the facet joints. Posterior decompression L2-L5. DISC SPACES: Interve rtebral spacer at L4-L5. Marked narrowing L2-L3. Moderate narrowing L1-L2, L5-S1. PARASPINOUS: Negativ e. No paraspinous abnormality is seen. OTHER: Negative. X R/XR lumbar spine 2-3V IMPRESSION: 1. Interval revision of lumbar spine fusion and posterior decompression as detailed above. Electronically authe nticated by: CHELE PALAFOX Date: 04/21/2024 11:06 Dictated By: Chele Palafox M.D. Signed By: 04/21/24 1108 DD/ 1106 TD/TT: Card Reader: Reason For Referral No Information Medications Medication SIG (Take, Route, Frequency, Duration) Notes Start Date End Date Status Centrum Silver Ultra Mens Active Fluticasone Propionate 50 MCG/ACT INSTILL 1 SPRAY IN EACH NOSTRIL ONCE DAILY FOR 30 DAYS for 30 Active Atorvastatin Calcium 10 MG 1 tablet Oral [...] a day for 90 days 07/30/2024 Active Glimepiride 1 mg TAKE ONE TABLET BY M OUTH DAILY WITH FIRST MEAL OF THE DAY for 90 Active FeroSul 325 (65 Fe) MG 1 tablet Orally d aily for 90 days Active Immunizations Vaccine Route Administration Date Status Comme nts Flu, Fluad (99294) 65 yrs an d older, single-dose syringe Unknown 07/01/2024 Administered Pneumococcal (Pneumovax 23) Unknown 08/01/2000 Administ ered Pneumococcal (Pneumovax 23) Unknown 06/28/2005 Administ ered Pneumococcal (Pneumovax 23) Unknown 08/08/2012 Administ ered Pneumococcal (Prevnar 13) Unknown 07/10/2018 Administer ed Spikevax Moderna Syringe Pre -Filled 50 mcg/0.5 mL Unknown 07/01/2024 Administered Social History Tobacco Use: Social History Observation Description Date Details (start date - stop date) Former Smoker NA - 03/03/1986 Tobacco Use/Smoking Question Answer Notes Patient is a former smoker When did you stop smoking? 03/03/1986 How long has it been since you last smoked? > 10 years Alcohol Screen (Audit-C) Question Answer Notes Did you have a drink containing alcohol in the p ast year? No Points 0 Interpretation Negative AUDIT-C (Standard) Question Answer Notes Did you have a drink containing alcohol in the p ast year? No Points 0 Interpretation Negative Problems Problem Type SNOMED Code ICD Code Onset Dates Problem Status W/U Status Risk Notes Problem Lumbosacral spondylosis without myelopathy (43264740) Other spondylosis, lumbar region (M47.896) Active confirmed Problem Balanitis (72977342) Balanitis (N48.1) Active confirmed Problem Hyperlipidemia (83604355) Hyperlipidemia (E78.5) Active confirmed Problem Mitral regurgitation (86097409) Mitral regurgitation (I34.0) Active confirmed Problem Hypertension (15547219) Hypertension (I10) Active confirmed Problem Edema (47178827) Edema (R60.9) Active confirmed Problem Left ventricular hypertrophy (43718480) Left ventricular hypertrophy (I51.7) Active confirmed Problem Insomnia (482781666) Insomnia (G47.00) Active confirmed Problem Disorder of lumbar disc (184730142) Lumbar disc disease (M51.9) Active confirmed Problem Leg pain (36952371) Leg pain (M79.606) Active confirmed Problem Dysarthria (7801424) Dysarthria (R47.1) Active confirmed Problem Aortic insufficiency (99760616) Aortic insufficiency (I35.1) Active confirmed Problem Gastroenteritis (96367056) Gastroenteritis (K52.9) Active confirmed Problem Overweight (809360950) Over weight (E66.3) Active confirmed Problem Iron deficiency anemia (06039083) Anemia, iron deficiency (D50.9) Active confirmed Problem Cardiovascular disease (29794181) Cardiovascular disease (I25.10) Active confirmed Problem Tinea cruris (823991851) Dermatophytosis, groin (B35.6) Active confirmed Problem Contracture of palmar fascia (040823228) Dupuytren's contracture of left hand (M72.0) Active confirmed Problem Chronic venous insufficiency (00909046) Chronic venous insufficiency (I87.2) Active confirmed Problem Gastro-esophageal reflux disease (009067367) Gastro-esophageal reflux disease (K21.9) Active confirmed Problem Osteoarthritis (304820240) DA (degenerative arthritis) (M19.90) Active confirmed Problem Type II diabetes mellitus without complication (924266812) Diabetes mellitus type 2, diet-controlled (E11.9) Active confirmed Problem Edema (815306867) Edema of both lower extremities (R60.0) Active confirmed Problem Low back pain (finding) (537473918) Low back pain at multiple sites (M54.50) Active confirmed Vital Signs Blood pressure diastolic 82 mm Hg 11/11/2024 Height 71 in 11/11/2024 Blood pressure systolic 126 mm Hg 11/11/2024 Weight 243 lbs 11/11/2024 BMI 33.89 kg/m2 11/11/2024 Encounters Encounter Location Date Provider Diagnosis [address] [address] 05/07/2024 [place] [address] [place] [address] 07/29/[address] [address] 08/06/2024 Robbin Liz Hypertension I10 [address] [address] 08/11/2024 Robbin Liz [place] [address] [place] [address] 10/01/2024 Robbin Liz [address] [address] 03/17/2025 Robbin Liz Hyperlipidemia E78.5 ; Anemia, iron deficiency D50.9 ; Diabetes mellitus type 2, diet-controlled E11.9 ; Fatigue R53.83 ; Colon cancer screening Z12.11 and Encounter for prostate cancer screening Z12.5 [facility] [address] [place] [address] 03/31/2024 Robbin Liz [facility] [address] [place] [address] 04/09/2024 Robbin Liz [facility] [address] [place] [address] 04/10/2024 Robbin Liz [facility] [address] [place] [address] 04/23/2024 Robbin Liz Lumbar disc disease M51.9 [facility] [address] [place] [address] 11/11/2024 Robbin Liz Encounter for [employer] annual wellness exam Z00.00 [facility] [address] [place] [address] 04/09/2024 Robbin Liz Edema R60.9 ; Hyperlipidemia E78.5 ; Hypertension I10 and Insomnia G47.00 [facility] [address] [place] [address] 08/06/2024 Robbin Liz Hypertension I10 ; Anemia, iron deficiency D50.9 ; Gastro-esophageal reflux disease K21.9 ; Diabetes mellitus type 2, diet-controlled E11.9 and Rash R21 Assessments Encounter Date Diagnosis (ICD Code) Assessment Notes Treatment Notes Treatment Clinical Notes Section Notes 04/09/2024 Edema (ICD-10 - R60.9) 04/09/2024 Hyperlipidemia (ICD-10 - E78.5) 08/06/2024 Hypertension (ICD-10 - I10) 08/06/2024 Anemia, iron deficiency (ICD-10 - D50.9) 11/11/2024 Encounter for Medicare annual wellness exam (ICD-10 - Z00.00) 04/23/2024 Lumbar disc disease (ICD-10 - M51.9) 08/06/2024 Hypertension (ICD-10 - I10) 03/17/2025 Hyperlipidemia (ICD-10 - E78.5) 03/17/2025 Anemia, iron deficiency (ICD-10 - D50.9) 03/17/2025 Diabetes mellitus type 2, diet-controlled (ICD-10 - E11.9) 08/06/2024 Gastro-esophageal reflux disease (ICD-10 - K21.9) 04/09/2024 Hypertension (ICD-10 - I10) 04/09/2024 Insomnia (ICD-10 - G47.00) 08/06/2024 Diabetes mellitus type 2, diet-controlled (ICD-10 - E11.9) 03/17/2025 Fatigue (ICD-10 - R53.83) 03/17/2025 Colon cancer screening (ICD-10 - Z12.11) 08/06/2024 Rash (ICD-10 - R21) 03/17/2025 Encounter for prostate cancer screening (ICD-10 - Z12.5) Plan Of Treatment Pending Test Test Name Order Date CULTURE, STOOL 08/06/2024 PSA, PROSTATE-SPECIFIC ANTIGEN CT Lumbar w/o contrast * 10/24/2023 FECAL OCCULT BLOOD 03/17/2025 Stool Occult Blood (iFOB) 08/09/2023 CMP14 08/09/2023 CBC W/AUTO DIFF 08/09/2023 CBC AUTO DIFF 03/17/2025 GLYCOHEMOGLOBIN A1C 03/17/2025 GLYCOHEMOGLOBIN A1C 08/06/2023 LIPID PROFILE 08/06/2023 LIPID PROFILE 03/17/2025 PROF 14(COMP METB) 03/17/2025 THYROID PROFILE WITH TSH 08/09/2023 THYROID PROFILE WITH TSH 08/06/2023 US JOSE DOP LEG LT 04/09/2024 US JOSE DOP LEG RT 04/09/2024 THYROID PANEL (T4/TSH/FREE T3) PSA Total+% Free 03/17/2025 Insurance Providers Payer Name Payer Address Payer Phone Subscriber Number Group Number Insured Name Patient Relationship to Insured Coverage Start Date Coverage End Date MEDICARE RAILROAD [address] [address] [place], [place] [phone] [id number] Queta Love Self - patient is the insured [facility] [address] [place] [address] [id number] Queta Love Self - patient is the insured Medications Administered Medication Instructions Date of Administration Dosage Notes Kenalog-40 10/24/2023 120 mg 120 Ketorolac Tromethamine 10/24/2023 60 mg 60 Orphenadrine Citrate 10/24/2023 60 mg 60 Triamcinolone 40 mg/ml 08/06/2024 120 mg Medical (General) History Medical History History ICD Code Over weight E66.3 Anemia, iron deficiency D50.9 Diabetes mellitus type 2, diet-controlle d E11.9 Edema of both lower extremities R60.0 Other spondylosis, lumbar region M47.896 Low back pain at multiple sites M54.50 Lumbar disc disease M51.9 Balanitis N48.1 Dupuytren's contracture of left hand M72 .0 Dysarthria R47.1 Cardiovascular disease I25.10 Dermatophytosis, groin B35.6 Insomnia G47.00 Chronic venous insufficiency I87.2 DA (degenerative arthritis) M19.90 Hyperlipidemia E78.5 Gastro-esophageal reflux disease K21.9 Aortic insufficiency I35.1 Mitral regurgitation I34.0 Hypertension I10 Left ventricular hypertrophy I51.7 spinal stenosis, lumbosacral region Surgical History Surgery Date(Month/Year) Back Surgery pedicle screw by dr duke 20 13 colonscopy 2019 L4-L5 hardware removal and fusion 2023 Hospitalization History Reason Date(Month/Year) back surgery 2012
[2025-03-23 10:39] LABS: Hematocrit 37.4 % (42.0-54.0); Hemoglobin 12.1 g/dL (14.0-18.0); Immature Granulocytes Abs Auto 0.04 10^3/uL (0.00-0.03); Immature Granulocytes Pct Auto 0.5 % (0.0-0.5); Lymphocytes Absolute Auto 1.7 10^3/uL (1.2-3.8); Mean Corpuscular HGB Conc 32.4 g/dL (29.9-35.2); Mean Corpuscular Hemoglobin 34.0 pg (25.9-34.0); Platelet Count 174 10^3/uL (150-450); Red Blood Count 3.56 10^6/uL (4.70-6.10); White Blood Count 7.3 10^3/uL (4.0-11.0)
[2025-03-23 11:19] LABS: Mean Corpuscular Volume 105.1 fL (80.0-94.0)
[2025-03-23 11:32] LABS: Alanine Aminotransferase 80 U/L (16-63); Albumin Globulin Ratio 0.8; Albumin Level 3.4 g/dL (3.4-5.0); Alkaline Phosphatase 131 U/L (46-116); Anion Gap 13.0; Aspartate Amino Transferase 67 U/L (15-37); Blood Urea Nitrogen 15.0 mg/dL (7.0-18.0); Calcium 9.5 mg/dL (8.5-10.1); Carbon Dioxide 29.6 mmol/L (21.0-32.0); Chloride 102 mmol/L (98-107); Cholesterol 170 mg/dL (<=200); Estimated GFR (African America >60 (>=60 mL/min/1.73m^2); Estimated GFR (Non-African Ame 54 (>=60 mL/min/1.73m^2); Free T3 2.38 pg/mL (2.18-3.98); Globulin 4.1 g/dL; Glucose 169 mg/dL (74-106); HDL Cholesterol 43 mg/dL (40-60); Potassium 4.6 mmol/L (3.5-5.1); Sodium 140 mmol/L (136-145); Thyroid Stimulating Hormone 5.023 uIU/mL (0.358-3.740); Total Protein 7.5 g/dL (6.4-8.2); Triglycerides 158 mg/dL (<=150); VLDL CHOLESTEROL 31.6 mg/dL
[2025-03-24 08:09] LABS: PSA, Free 1.07 ng/mL
== END 2025-03-23 10:05 | disposition home or self-care (01) ==
LOC: LAB 10:06
PROVIDERS: PCP Family Medicine; Visit Provider Family Medicine
DX: E78.5 Hyperlipidemia, unspecified (principal); R53.83 Other fatigue; Z12.11 Encounter for screening for malignant neoplasm of colon; Z12.5 Encounter for screening for malignant neoplasm of prostate; E11.9 Type 2 diabetes mellitus without complications
CPT/HCPCS: 36415; 80053; 80061; 83036; 84153; 84154; 84436; 84443; 84481; 85025

== ENCOUNTER 2025-03-31 13:42 | Outpatient (OUT) | payer MEDICARE, SELFPAY ==
--- NOTE | 2025-03-31 13:45 | US_ITS ---
[address] [address] Patient Name: QUETA QUIROGA MRN: [id number] date: 1945 Sex: M Assigned Patient Location: US Current Patient Location: US Accession/Order Number: [id number] Exam Date: 03/31/2025 15:16 Report Date: 03/31/2025 15:18 At the request of: KAITLYNN LIZ MD Procedure: US right upper quadrant LIMITED ABDOMINAL ULTRASOUND: CLINICAL HISTORY: Elevated liver enzymes COMPARISON: None TECHNIQUE: Grayscale and color Doppler images of the right upper quadrant organs were obtained. FINDINGS: Pancreas: Visualized portions appear unremarkable. Liver: Fatty infiltration. Gallbladder: Cholelithiasis. CBD: 5.5 mm RT KIDNEY: No Hydronephrosis US/US right upper quadrant IMPRESSION: FATTY INFILTRATION OF LIVER WITH CHOLELITHIASIS. NO ACUTE PROCESS IS SEEN.. Impression dictated by: Albert De La Fuente Jr., D.O. 03/31/2025 3:18 PM Dictation Location: [place] [address] Electronically authenticated by: [id number] Y Date: 03/31/2025 15:18
== END 2025-03-31 13:43 | disposition home or self-care (01) ==
LOC: US 13:42
PROVIDERS: PCP Family Medicine; Visit Provider Family Medicine
DX: R74.8 Abnormal levels of other serum enzymes (principal); K80.20 Calculus of gallbladder without cholecystitis without obstruction; K76.0 Fatty (change of) liver, not elsewhere classified
CPT/HCPCS: 76705

== ENCOUNTER 2025-04-10 08:44 | Outpatient (OUT) | payer MEDICARE, SELFPAY ==
--- OUTSIDE RECORDS SUMMARY | 2025-03-20 07:20 | XMS_ITS ---
Author Organization [facility] Address [address] [place] [address] Care Team Providers Care Deoiling Machine Operator Name Role Phone Abrahan Cota Primary Care Provider Jed Thomas [phone] REASON FOR VISIT LUMBAR RECHECK Encounters Encounter Location Date Provider Diagnosis [facility] [address] [place] [address] [place] [address] 03/20/2025 Jed Weiss Plan Of Treatment No Information Progress Notes * QUETA QUIROGA WDOB:1945 (79 yo M)Acc No.[id number]:03/20/2025 Patient: QUETA NEAL Provider: Savannah Sanchez MD, PhD :1945 A ge:79 Y S ex:Male Date:03/20/2025 Address:[address] [place], [place] [id number] Pcp:Abrahan Cota Subjective: * Chief Complaints: * 1 . LUMBAR RECHECK. * Medical History: Objective: * Vitals: Assessment: Plan: * Treatment: Forms: * Images: * Electronic signature of Gareth Weiss MD, PHD on 04/10/2025 at 08:45 AM EDT Sign off status: Pending * Provider: Savannah Sanchez MD, PhD Date: 03/20/2025 Generated for Printi ng/Faxing/eTransmitting on: 04/10/2025 08:45 AM EDT
--- OUTSIDE RECORDS SUMMARY | 2025-03-23 15:30 | XMS_ITS ---
Author Organization [facility] [place] Address [address] [place] [address] Care Team Providers Care Breaker Up Machine Operator Name Role Phone Cipriano Robbin Primary Care Provider REASON FOR VISIT labs Medications Medication SIG (Take, Route, Frequency, Duration) Notes Start Date End Date Status FeroSul 325 (65 Fe) MG 1 tablet Orally t wice daily for 90 days Active Metoprolol Tartrate 50 MG 1 tablet with food Orally Twice a day for 90 days 04/09/2024 Active Atorvastatin Calcium 10 MG 1 tablet Oral ly Once a day for 90 days 04/09/2024 Active Aspirin Adult Low Strength 81 MG 1 tablet Orally Once a day for 90 days Active Glimepiride 1 mg TAKE ONE TABLET BY M OUTH DAILY WITH FIRST MEAL OF THE DAY for 90 days Active Problems Problem Type SNOMED Code ICD Code Onset Dates Problem Status W/U Status Risk Notes Problem Hypothyroidism (E03.9) Active confirmed Encounters Encounter Location Date Provider Diagnosis [facility] [place] [facility] [address] [place] [address] 03/23/2025 Robbin Cota Hypothyroidism E03.9 ; Elevated liver enzymes R74.8 and Edema R60.9 Assessments Encounter Date Diagnosis (ICD Code) Assessment Notes Treatment Notes Treatment Clinical Notes Section Notes 03/23/2025 Hypothyroidism (ICD-10 - E03.9) 03/23/2025 Elevated liver enzymes (ICD-10 - R74.8) 03/23/2025 Edema (ICD-10 - R60.9) Plan Of Treatment Medication Medication Name Sig Start Date Stop Date Notes FeroSul 325 (65 Fe) MG 1 tablet Orally t wice daily for 90 days Omeprazole 20 MG 1 capsule 1/2 to 1 h our before morning meal Orally Once a day 07/30/2024 Metoprolol Tartrate 50 MG 1 tablet with food Orally Twice a day for 90 days 04/09/2024 Atorvastatin Calcium 10 MG 1 tablet Oral ly Once a day for 90 days 04/09/2024 Aspirin Adult Low Strength 81 MG 1 table t Orally Once a day for 90 days Glimepiride 1 mg TAKE ONE TABLET BY M OUTH DAILY WITH FIRST MEAL OF THE DAY for 90 days Pending Test Test Name Order Date US Abdomen - Limited 03/23/2025 THYROID PANEL (T4/TSH/FREE T3) Progress Notes * Bishnu LOVE WDOB:1945 (79 yo M)Acc No.[id number]:03/23/2025 Patient: Bishnu NEAL :1945 A ge:79 Y S ex:Male Address:[address] [place] [address] [address], [place] [address] * Refills Refill Glimepiride Tablet, 1 mg, 90 Each, TAKE ONE TABLET BY MOUTH DAILY WITH FIRST MEAL OF THE DAY, 90 days, Refills=3 Stop Omeprazole Capsule Delayed Release, 20 MG, Orally, 1 capsule 1/2 to 1 hour before morning meal, Once a day Refill Aspirin Adult Low Strength Tablet Delayed Release, 81 MG, Orally, 90 Tablet, 1 tablet, Once a day, 90 days, Refills=3 Refill Atorvastatin Calcium Tablet, 10 MG, Orally, 90 Tablet, 1 tablet, Once a day, 90 days, Refills=3 Refill FeroSul Tablet, 325 (65 Fe) MG, Orally, 180 Tablet, 1 tablet, twice daily, 90 days, Refills=3 Refill Metoprolol Tartrate Tablet, 50 MG, Orally, 180 Tablet, 1 tablet with food, Twice a day, 90 days, Refills=3 Subjective: * Chief Complaints: * L abs * Medical History: * Surgical History: * Hospitalization/Major Diagno stic Procedure: * Medications: Objective: * Vitals: * Physical Examination: Assessment: * Assessment: 1. H ypothyroidism - E03.9 (Primary) 2 . E levated liver enzymes - R74.8? 3. E diane - R60.9 Plan: * Treatment: 2.?Elevated liver enzymes?Imaging: US Abdomen - Limited* ATTN GALLBLADDER, PANCREAS, LIVER 3.?Edema? Refill FeroSul Tablet, 325 (65 Fe) MG, 1 tablet, Orally, twice daily, 90 days, 180 Tablet, Refills 3.??4.?Others? Refill Glimepiride Tablet, 1 mg, TAKE ONE TABLET BY MOUTH DAILY WITH FIRST MEAL OF THE DAY, 90 days, 90 Each, Refills 3;?Stop Omeprazole Capsule Delayed Release, 20 MG, 1 capsule 1/2 to 1 hour before morning meal, Orally, Once a day;?Refill Aspirin Adult Low Strength Tablet Delayed Release, 81 MG, 1 tablet, Orally, Once a day, 90 days, 90 Tablet, Refills 3;?Refill Atorvastatin Calcium Tablet, 10 MG, 1 tablet, Orally, Once a day, 90 days, 90 Tablet, Refills 3;?Refill Metoprolol Tartrate Tablet, 50 MG, 1 tablet with food, Orally, Twice a day, 90 days, 180 Tablet, Refills 3. ? * Procedure Codes: * true * Date: Generated for Wei daley/Jose/Borisitting on: 0 04/10/2025 08:46 AM EDT
--- OUTSIDE RECORDS SUMMARY | 2025-03-24 12:20 | XMS_ITS ---
Author Organization [facility] [place] Address [address] [place] [address] Care Team Providers Care Data Integration Developer Name Role Phone Cipriano Robbin Primary Care Provider Reason For Referral Diagnosis 1 PSA elevation (R97.2 0) Referral Organization [facility] Referring Provider First Name Robbin Referring Provider Last Name Cipriano Referring Provider [facility] icine Referred Provider Dao Grimm Referred Provider Specialty Urology Referral Priority Routine REASON FOR VISIT PSA Encounters Encounter Location Date Provider Diagnosis [facility] [address] [place] [address] 03/24/2025 Robbin Campbellchristoph PSA elevation R97.20 Assessments Encounter Date Diagnosis (ICD Code) Assessment Notes Treatment Notes Treatment Clinical Notes Section Notes 03/24/2025 PSA elevation (ICD-10 - R97.20) Plan Of Treatment Referrals Referral Date Details 03/27/2025 03/27/2025Dao Progress Notes * Bishnu LOVE WDOB:1945 (79 yo M)Acc No.[id number]:03/24/2025 Patient: Bishnu NEAL Cesar :1945 A ge:79 Y S ex:Male Address:[address] [place] [id number] Subjective: * Chief Complaints: * P SA * Medical History: * Surgical History: * Hospitalization/Major Diagno stic Procedure: * Medications: Objective: * Vitals: * Physical Examination: Assessment: * Assessment: 1. P SA elevation - R97.20 (Primary) Plan: * Treatment: * Procedure Codes: * true * Date: Generated for Wei daley/Jose/Nicole on: 0 04/10/2025 08:46 AM EDT Consultation Request Notes Referral Date Referring Provider Referred Provider Not es 03/27/2025 Robbin Cota Patrick
--- OUTSIDE RECORDS SUMMARY | 2025-03-27 08:20 | XMS_ITS ---
Author Organization [facility] Address [address] [place] [address] Care Team Providers Care Local Company Tanker Driver Name Role Phone Abrahan Cota Primary Care Provider Roby Gerard Bi Conradabdifatah Unavailable [phone] Austin Monte Unavailable [phone] Allergies No Known Allergies REASON FOR VISIT Lumbar recheck Medications Medication SIG (Take, Route, Frequency, Duration) Notes Start Date End Date Status Cyclobenzaprine Hydrochlorid e 10 mg 1 tab(s) orally 3 times a day prn muscle spasms 03/10/2024 Active pantoprazole 40 mg for 90 Days Active spironolactone 25 mg for 15 Days Active pantoprazole 40 mg TAKE ONE TABLET BY MOUTH ONCE DAILY for 90 Days Active omeprazole 20 mg for 90 Days A ctive Atorvastatin calcium 10 MG for 90 Days Active Metoprolol Tartrate 50 mg for 90 Days Active glimepiride 1 mg for 90 Days A ctive Aspirin Low Dose 81 mg TAKE ONE TABLET B Y MOUTH ONCE DAILY for 90 Days Active Vital Signs Height 71 in in 03/27/2025 Weight 230 lbs 03/27/2025 BMI 32.07 03/27/2025 Encounters Encounter Location Date Provider Diagnosis [facility] [address] [place] [address] 03/27/2025 Austin Monte Encounter for other orthopedic aftercare Z47.89 Assessments Encounter Date Diagnosis (ICD Code) Assessment Notes Treatment Notes Treatment Clinical Notes Section Notes 03/27/2025 Encounter for other orthopedic aftercare (ICD-10 - Z47.89) 1. 1 year status post L4-5 hardware removal with L2-S1 decompression and L2-5 fusion 03/27/2025 Other Plan established by Dr. Sanchez. Patient seen and evaluated by Dr. Sanchez today. He overall is doing well from a surgical standpoint. His main complaint is off balance symptoms which seems to be primarily from his left leg weakness. We did discuss getting a MRI of the cervical spine but overall he is happy since his pain is improved. We will otherwise see him back in the office on a as needed basis with any new or worsening symptoms. The patient is very much in agreement with the treatment and/or diagnostic plan set forth and all questions were answered to the patient's satisfaction. Thanks once again. If we can be of further service to your patients with disorders of the spine, cervical, thoracic, or lumbar, please do not hesitate to contact Dr. Sanchez. Best regards, 1. 1 year status post L4-5 hardware removal with L2-S1 decompression and L2-5 fusion Plan Of Treatment Treatment Notes Assessment Notes Other Plan established by Dr. Sanchez. Patient seen and evaluated by Dr. Sanchez today. He overall is doing well from a surgical standpoint. His main complaint is off balance symptoms which seems to be primarily from his left leg weakness. We did discuss getting a MRI of the cervical spine but overall he is happy since his pain is improved. We will otherwise see him back in the office on a as needed basis with any new or worsening symptoms. The patient is very much in agreement [...] Date Lumbar spine, 4v flex ext - 84082 2024 Next Appt Details Follow Up: prn, Reason: Progress Notes * QUETA QUIROGA WDOB:1945 (79 yo M)Acc No.[id number]:03/27/2025 Patient: Hanh AMAYA QUETA Cesar Provider: Celena Monte PA-C :1945 A ge:79 Y S ex:Male Date:03/27/2025 Address:[address] [place] [address] [address], [place], [id number] Pcp:Abrahan Cota Subjective: * Chief Complaints: * 1 . Lumbar recheck. * HPI: H PI: Dictated by Austin Monte PA-C The patient returns to the office today 1 year status post L4-5 hardware removal with L2-S1 decompression and L2-5 fusion. He overall is doing very well from surgery. He has had a significant improvement in his back and leg pain. He does complain of some numbness along the left side of his back and buttock that has not changed since surgery. He feels like that causes him to be off balance but he also has chronic weakness in the left leg. He denies neck pain or radicular symptoms. He denies weakness or dexterity issues. He feels like looking up causes him to be off balance. * ROS: M usculoskeletal: Denies N mary Pain. * Medical History: M edical History [...] times a day prn muscle spasms , Taking glimepiride 1 mg tablet , Taking Aspirin Low Dose 81 mg delayed release tablet TAKE ONE TABLET BY MOUTH ONCE DAILY , Taking Atorvastatin calcium 10 MG TABLET , Taking Metoprolol Tartrate 50 mg tablet , Taking pantoprazole 40 mg delayed release tablet TAKE ONE TABLET BY MOUTH ONCE DAILY , Taking omeprazole 20 mg delayed release capsule , Taking spironolactone 25 mg tablet , Taking pantoprazole 40 mg delayed release tablet , Medication List reviewed and reconciled with the patient * Allergies: N .K.D.A. Objective: * Vitals: H t: 71 in, Wt: 230 lbs, BMI:32.07. * Examination: G eneral examination: O n examination, the patient is well-developed, well-nourished, well-groomed, alert and oriented x3, normal mood. Antalgic gait, using a cane to ambulate. Well-healed lumbar incision. Limited lumbar ROM. Non tender over the lumbar spine. 5/5 muscle strength bilateral lower extremities except 4 out of 5 at the left iliopsoas. Sensory intact lower extremities. X -ray Imaging Studies: X -rays of the lumbar spine, 4 views AP, lateral, flexion and extension done in the office today shows instrumentation from L2-5. No complications with the hardware. No signs of any Instability or acute fractures. Assessment: * Assessment: 1. E ncounter for other orthopedic aftercare - Z47.89 (Primary) 1. 1 year status post L4-5 h ardware removal with L2-S1 decompression and L2-5 fusion. Plan: * Treatment: * Procedure Codes: 7 0 X-ray Lumbar Spine, 5 view complete * Preventive Medicine: MIPS Measures: C MS139 Fall Risk S creening: N o falls in the past year.? * Follow Up: p rn Forms: * Images: * Electronic signature of Onesimo Monte PA-C on 04/10/2025 at 08:46 AM EDT Sign off status: Pending * Provider: Celena Monte PA-C Date: 0 03/27/2025 Generated for Wei daley/Jose/Borisitting on: 0 04/10/2025 08:46 AM EDT History and Physical Notes * HPI (History of Present Illness) Category Sub-Category Detail Notes Category Not es HPI Dictated by Austin Monte PA-C The patient returns to the office today 1 year status post L4-5 hardware removal with L2-S1 decompression and L2-5 fusion. He overall is doing very well from surgery. He has had a significant improvement in his back and leg pain. He does complain of some numbness along the left side of his back and buttock that has not changed since surgery. He feels like that causes him to be off balance but he also has chronic weakness in the left leg. He denies neck pain or radicular symptoms. He denies weakness or dexterity issues. He feels like looking up causes him to be off balance. Examination Category Sub-Category Detail Notes Category Not es General examination On exami nation, the patient is well-developed, well-nourished, well-groomed, alert and oriented x3, normal mood. Antalgic gait, using a cane to ambulate. Well-healed lumbar incision. Limited lumbar ROM. Non tender over the lumbar spine. 5/5 muscle strength bilateral lower extremities except 4 out of 5 at the left iliopsoas. Sensory intact lower extremities. X-ray Imaging Studies X-rays of the lumbar spine, 4 views AP, lateral, flexion and extension done in the office today shows instrumentation from L2-5. No complications with the hardware. No signs of any Instability or acute fractures.
--- NOTE | 2025-04-10 | NM_ITS ---
The [address] [address] Patient Name: QUETA QUIROGA MRN: [id number] date: 1945 Sex: M Assigned Patient Location: [place] Current Patient Location: [place] Accession/Order Number: [id number] Exam Date: 04/10/2025 13:23 Report Date: 04/10/2025 13:38 At the request of: KAITLYNN LIZ MD Procedure: NM hepatobiliary w pharm HIDA SCAN WITH CCK CLINICAL HISTORY: GALLSTONE COMPARISON: Gallbladder ultrasound 03/31/2025 TECHNIQUE:Following the intravenous administration of 4.6 mCi of technetium 99m labeled Mebrofenin, anterior imaging of the abdomen was performed out to 60 minutes.8 ounces of ensure was given to calculate gallbladder ejection fraction. FINDINGS: There is uniform distribution of radionuclide within the liver. Normal gallbladder activity is seen within the first 60 minutes. The gallbladder ejection fraction is 54%. Normal is greater than 40%. NM/NM hepatobiliary w pharm IMPRESSION: Normal HIDA scan. Impression dictated by: Albert De La Fuente Jr., D.O. 04/10/2025 1:38 PM Dictation Location: [place] [address] Electronically authenticated by: [id number] Y Date: 04/10/2025 13:38
--- OUTSIDE RECORDS SUMMARY | 2025-04-10 08:47 | XMS_ITS | Clinical Summary ---
Author Organization [facility] Address [address] [place] [address] Care Team Providers Care Capability Lead Name Role Phone Unavailable Primary Care Provider Unavailabl e Allergies Active Allergy Reactions Criticality Noted Date Comments Cephalexin Itching Low 03/18/2024 Medications atenolol (Tenormin) 50 MG tablet Take 50 mg by mouth Daily 3 Active lisinopril 40 MG tablet Take 40 mg by mouth Daily 3 Active omeprazole (PriLOSEC) [address] capsule Take 20 mg by mouth Daily 3 Active fluticasone (Flonase) 50 MCG/ACT nasal spray 3 Active tacrolimus (Protopic) 0.1 % ointment Active furosemide (Lasix) 20 MG tablet Active nabumetone (Relafen) 500 MG tablet Active aspirin 81 MG EC tablet Active fluocinonide (Lidex) 0.05 % external solutionIndicati ons:Other seborrheic dermatitis Apply to affected areas on the scalp, up to twice a day when flared, 30 day supply 60 mL 11 4 Active triamcinolone (Kenalog) 0.1 % creamIndications :Rash and other nonspecific skin eruption Apply topically 2 (two) times a day as needed for rash 453.6 g 3 4 Active fluocinonide (Lidex) 0.05 % external solutionIndicati ons:Other atopic dermatitis Apply to affected areas on the scalp, up to twice a day when flared, 30 day supply 60 mL 11 4 Active ketoconazole (NIZOral) 2 % shampoo 11/11/202 4 Active traZODone (Desyrel) 50 MG tablet 4 Active traMADol (Ultram) 50 MG tablet Take 50 mg by mouth every 6 (six) hours if needed 4 Active simvastatin (Zocor) 20 MG tablet Take 20 mg by mouth in the evening 4 Active pantoprazole (ProtoNix) 40 MG EC tablet Take 40 mg by mouth Daily Active metoprolol tartrate (Lopressor) 50 MG tablet Take 50 mg by mouth Take with food. Active meloxicam (Mobic) 15 MG tablet Take 15 mg by mouth Daily 4 Active melatonin 5 MG tablet 4 Active glimepiride (Amaryl) 1 MG tablet Active FeroSul 325 (65 Fe) MG tablet Take 1 tablet by mouth Daily 4 Active Docusate Sodium (DSS) 100 MG capsule 4 Active cyclobenzaprine (Flexeril) 10 MG tablet Take 10 mg by mouth Daily Active atorvastatin (Lipitor) 10 MG tablet Take 10 mg by mouth Daily Active tacrolimus (Protopic) 0.1 % ointmentIndicati ons:Other atopic dermatitis Apply to affected areas, twice a day when flared, 30 day supply 30 g 11 4 Active fluocinonide (Lidex) 0.05 % creamIndications :Other atopic dermatitis Apply to affected areas, up to twice a day when flared, do not use one the face, groin, or underarms, 30 day supply 60 g 11 5 Active Active Problems No known active problems Encounters Date Type Department Care Team Description 01/29/2025 1:20 PM EDT [facility] [address] [place] [phone] Maribel Greer, BEHAVIOR INTERVENTIONIST-KNOWLEDGE ARCHITECT Other atopic dermatitis; Stasis dermatitis of both legs 01/29/2025 Bamboo [facility] [address] [place] [phone] Maribel Greer, BEHAVIOR INTERVENTIONIST-KNOWLEDGE ARCHITECT 01/29/2025 Travel from Last 3 Months Family History Medical History Relation Name Comments Psoriasis Neg Hx Social History Tobacco Use Types Packs/Day Years Used Date Smoking Tobacco: Never Tobacco Cessation:Counseling Given: Not Answered Sex and Gender Information Value Date Recorded Sex Assigned at Not on file Legal Sex Male 7:19 PM EDT Gender Identity Not on file Sexual Orientation Not on file Plan of Treatment Upcoming Encounters Date Type Department Care Team (Late st Contact Info) Description 05/28/2025 1:35 PM EDT Office Visit [facility] [address] [place] [phone] Maribel Greer, BEHAVIOR INTERVENTIONIST-KNOWLEDGE ARCHITECT [address] [place] [address] 01/28/2026 1:35 PM EDT Office Visit [facility] [address] [place] [address] Maribel Greer BEHAVIOR INTERVENTIONIST-KNOWLEDGE ARCHITECT [address] [place] [address] Health Maintenance Due Date Last Done Comments Pneumococcal Vaccine: 65+ Ye ars (1 of 1 - PCV) 1995 Influenza Vaccine (#1) 2025 , 06/26/2023, 06/22/2022, Additional history exists [place] [address] [facility]
--- OUTSIDE RECORDS SUMMARY | 2025-04-10 08:47 | XMS_ITS | Patient Health Record ---
Author Organization The [facility] in [place] Address [address] [place] [place] [address] Care Team Providers Care Wall Cleaner Name Role Phone Robbin Liz Primary Care Provider Allergies No Known Allergies Results Component Value Reference Range Notes XR lumbar spine 2-3V Reviewed date:06/09/2024 08:39:19 PM Interpretation: Performing Lab: Notes/Report: Source Facility: [place] [address] XRay Report Signed Patient: QUETA LOVE MR#: [id number] : 1945 Acct:[id number] Age/Sex: 78 / M ADM Date: 06/06/24 Loc: EC Attending Dr: Gita Magana M.D. Ordering Physician: Gita Magana M.D. Date of Service: 06/06/24 Procedure(s): XR lumbar spine 2-3V Accession Number(s): [id number] cc: Kaitlynn Liz M.D.; Gita Magana M.D. [address] [address] Patient Name: QUETA LOVE MRN: [id number] date: 1945 Sex: M Assigned Patient Location: EC Current Patient Location: Accession/Order Number: [id number] Exam Date: 06/06/2024 11:27 Report Date: 06/08/2024 [...] M.D. Signed By: 06/08/24726 DD/ 3 TD/TT: Neck Pinner: [place] [address] XRay Report Signed Patient: QUETA LOVE MR#: [id number] : 1945 Acct:[id number] Age/Sex: 78 / M ADM Date: 06/06/24 Loc: EC Attending Dr: Gita Magana M.D. Ordering Physician: Gita Magana M.D. Date of Service: 06/06/24 Procedure(s): XR lum bar spine 2-3V Accession Number(s): [id number] cc: Kaitlynn Liz M.D. ; Gita Magana M.D. [facility] [place] [address] Patient Name: QUETA LOVE MRN: [id number] date: 1945 Sex: M Assigned Patient Location: Current Patient Location: Accession/Order Numb er: [id number] Exam Date: 11:27 Report Date: 06/08/2024 07:24 At the request of: [facility] Procedure: XR lumbar spine 2-3V EXAMINATION: XR lumb ar spine 2-3V HISTORY: LUMBAR SPIN E PAIN COMPARISON: XR lumba r spine 04/18/2024 FINDINGS: BONES: Posterior mechanical fusion [...] failure or change in alignment. 2. Stable degenerati ve changes. Electronically authenticated by: CHELE PALAFOX Date: 06/08/2024 07:24 Dictated By: Chele Palafox M.D. Signed By: 06/08/24726 DD/ 3 TD/TT: Neck Pinner: BHAKTI T3 Reviewed date:03/23/2025 07:48:30 PM Interpretation: Performing Lab: Notes/Report: [facility] , Free T3 2.38 2.18-3.98 pg/mL Performing Lab: see note ML - [facility] LB T4 Reviewed date:03/23/2025 07:48:30 PM Interpretation: Performing Lab: Notes/Report: [facility] , T4 Thyroxine 7.20 4.50-12.10 ug/dL Performing Lab: see note ML - [facility] LB TSH Reviewed date:03/23/2025 07:48:30 PM Interpretation: Performing Lab: Notes/Report: [facility] , Thyroid Stimulating Hormone 5.023 0.358-3.740 uIU/mL Performing Lab: see note ML - [facility] LB US right upper quadrant Reviewed date:03/31/2025 03:36:40 PM Interpretation: Performing Lab: Notes/Report: Source Facility: [facility] [place] [address] [place] [address] Ultrasound Report Signed Patient: QUETA LOVE MR#: [id number] : 1945 Acct:[id number] Age/Sex: 79 / M ADM Date: 03/31/25 Loc: US Attending Dr: Kaitlynn Liz M.D. Ordering Physician: Kailtynn Liz M.D. Date of Service: 03/31/25 Procedure(s): US right upper quadrant Accession Number(s): [id number] cc: Kaitlynn Liz M.D. [place] [id number] Patient Name: QUETA LOVE MRN: [id number] date: 1945 Sex: M Assigned Patient Location: US Current Patient Location: US Accession/Order Number: [id number] Exam Date: 03/31/2025 15:16 Report Date: 03/31/2025 15:18 At the request of: KAITLYNN LIZ MD Procedure: US right upper quadrant LIMITED ABDOMINAL ULTRASOUND: CLINICAL HISTORY: Elevated liver enzymes COMPARISON: None TECHNIQUE: Grayscale and color Doppler images of the right upper quadrant organs were obtained. FINDINGS: Pancreas: Visualized portions appear unremarkable. Liver: Fatty infiltration. Gallbladder: Cholelithiasis. CBD: 5.5 mm RT KIDNEY: No Hydronephrosis US/US right upper quadrant IMPRESSION: FATTY INFILTRATION OF LIVER WITH CHOLELITHIASIS. NO ACUTE PROCESS IS SEEN.. Impression dictated by: Albert De La Fuente Jr., D.O. 03/31/2025 3:18 PM Dictation Location: [place] [address] Electronically authenticated by: [id number] Y Date: 03/31/2025 15:18 Dictated By: Albert De La Fuente M.D. Signed By: 03/31/25 1521 DD/ 1518 TD/TT: Neck Pinner: [place] [address] Ultrasound Report Signed Patient: QUETA LOVE MR#: [id number] : 1945 Acct:[id number] Age/Sex: 79 / M ADM Date: 03/31/25 Loc: US Attending Dr: Delores Liz M.D. Ordering Physician: Kaitlynn Liz M.D. Date of Service: 03/31/25 Procedure(s): US rig ht upper quadrant Accession Number(s): [id number] cc: Kaitlynn Liz M.D. [place] [address] Patient Name: QUETA LOVE MRN: [id number] date: 1945 Sex: M Assigned Patient Location: US Current Patient Location: US Accession/Order Numb er: [id number] Exam Date: 03/31/2025 15:16 Report Date: 03/31/2025 15:18 At the request of: KAITLYNN LIZ MD Procedure: US right upper quadrant LIMITED ABDOMINAL ULTRASOUND: CLINICAL HISTORY: Elevated liver enzymes COMPARISON: None TECHNIQUE: Grayscale and color Doppler images of the right upper quadrant organs were obtained. FINDINGS: Pancreas: Visualized portions appear unremarkable. Liver: Fatty infiltration. Gallbladder: Cholelithiasis. CBD: 5.5 mm RT KIDNEY: No Hydronephrosis US/US right upper quadrant IMPRESSION: FATTY INFILTRATION O F LIVER WITH CHOLELITHIASIS. NO ACUTE PROCESS IS SEEN.. Impression dictated by: Albert De La Fuente Jr., D.O. 03/31/2025 3:18 PM Dictation Location: [place] [address] Electronically authenticated by: [id number] Y Date: 03/31/2025 15:18 Dictated By: Albert De La Fuente M.D. Signed By: 03/31/25 1521 DD/ 1518 TD/TT: Neck Pinner: XR lumbar spine min 4V Reviewed date:09/23/2024 01:21:31 PM Interpretation: Performing Lab: Notes/Report: Source Facility: [facility] [place] [address] [place] [address] XRay Report Signed Patient: QUETA LOVE MR#: [id number] : 1945 Acct:[id number] Age/Sex: 79 / M ADM Date: 09/19/24 Loc: EC Attending Dr: Gita Magana M.D. Ordering Physician: Gita Magana M.D. Date of Service: 09/19/24 Procedure(s): XR lumbar spine min 4V Accession Number(s): [id number] cc: Kaitlynn Liz M.D.; Gita Magana M.D. [address] [address] Patient Name: QUETA LOVE MRN: [id number] date: 1945 Sex: M Assigned Patient Location: Current Patient Location: Accession/Order Number: [id number] Exam Date: 09/19/2024 10:50 Report Date: 09/22/2024 [...] is nonspecific and nonobstructive. Electronically authenticated by: SANTOS MONTALVO Date: 09/22/2024 21:24 Dictated By: Santos Montalvo M.D. Signed By: 09/22/242125 DD/ 23 TD/TT: Neck Pinner: [place] [address] XRay Report Signed Patient: QUETA LOVE MR#: [id number] : 1945 Acct:[id number] Age/Sex: 79 / M ADM Date: 09/19/24 Loc: EC Attending Dr: Gita Magana M.D. Ordering Physician: Gita Magana M.D. Date of Service: 09/19/24 Procedure(s): XR lum bar spine min 4V Accession Number(s): [id number] cc: Kaitlynn Liz M.D. ; Gita Magana M.D. [facility] [place] [address] Patient Name: QUETA LOVE MRN: [id number] date: 1945 Sex: M Assigned Patient Location: Current Patient Location: Accession/Order Numb er: [id number] Exam Date: 09/19/2024 10:50 Report Date: 09/22/2024 21:24 At the request of: GITA MAGANA Procedure: XR lumbar spine min 4V EXAM: XR lumbar spin e min 4V HISTORY: LUMBAR SPIN E PAIN COMPARISON: 12/07/2023 FINDINGS/IMPRESSION: 1. No acute [...] as pattern is nonspecific and nonobstructive. Electronically authenticated by: SANTOS MONTALVO Date: 09/22/2024 21:24 Dictated By: Santos Montalvo M.D. Signed By: 09/22/242125 DD/ 23 TD/TT: Neck Pinner: XR lumbar spine 2-3V Reviewed date:04/21/2024 09:08:35 PM Interpretation: Performing Lab: Notes/Report: Source Facility: [place] [address] [place] [address] XRay Report Signed Patient: QUETA LOVE MR#: [id number] : 1945 Acct:[id number] Age/Sex: 78 / M ADM Date: 04/18/24 Loc: EC Attending Dr: Gita Magana M.D. Ordering Physician: Gita Magana M.D. Date of Service: 04/18/24 Procedure(s): XR lumbar spine 2-3V Accession Number(s): [id number] cc: Kaitlynn Liz M.D.; Gita Magana M.D. [address] [address] Patient Name: QUETA LOVE MRN: [id number] date: 1945 Sex: M Assigned Patient Location: EC Current Patient Location: Accession/Order Number: [id number] Exam Date: 04/18/2024 09:59 Report Date: 04/21/2024 [...] Signed By: 04/21/24 1108 DD/ 1106 TD/TT: Neck Pinner: [place] [address] XRay Report Signed Patient: QUETA LOEV MR#: [id number] : 1945 Acct:[id number] Age/Sex: 78 / M ADM Date: 04/18/24 Loc: EC Attending Dr: Gita Magana M.D. Ordering Physician: Gita Magana M.D. Date of Service: 04/18/24 Procedure(s): XR lum bar spine 2-3V Accession Number(s): [id number] cc: Kaitlynn Liz M.D. ; Gita Magana M.D. [facility] [place] [address] Patient Name: QUETA LOVE MRN: [id number] date: 1945 Sex: M Assigned Patient Location: Current Patient Location: Accession/Order Numb er: [id number] Exam Date: 04/18/2024 09:59 Report Date: 04/21/2024 11:06 At the request of: GITA MAGANA Procedure: XR lumbar spine 2-3V EXAMINATION: XR lumb ar spine 2-3V HISTORY: LUMBAR SPIN E PAIN COMPARISON: XR lumba r spine 12/07/2023 FINDINGS: BONES: Posterior mechanical fusion [...] Signed By: 04/21/24 1108 DD/ 1106 TD/TT: Neck Pinner: US venous doppler LE BI Reviewed date:04/10/2024 06:16:45 PM Interpretation: Performing Lab: Notes/Report: Source Facility: [place] [address] [place] [address] Ultrasound Report Signed Patient: QUETA LOVE MR#: [id number] : 1945 Acct:[id number] Age/Sex: 78 / M ADM Date: 04/09/24 Loc: US Attending Dr: Kaitlynn Liz M.D. Ordering Physician: Kaitlynn Liz M.D. Date of Service: 04/09/24 Procedure(s): US venous doppler LE BI Accession Number(s): [id number] cc: Kaitlynn Liz M.D. [address] [id number] Patient Name: QUETA LOVE MRN: [facility]:[id number] date: 1945 Sex: M Assigned Patient Location: US Current Patient Location: Accession/Order Number: [id number] Exam Date: 04/09/2024 15:25 Report Date: 04/10/2024 [...] Signed By: 04/10/24 0540 DD/ 0538 TD/TT: Neck Pinner: [place] [address] Ultrasound Report Signed Patient: QUETA LOVE MR#: [id number] : 1945 Acct:[id number] Age/Sex: 78 / M ADM Date: 04/09/24 Loc: US Attending Dr: Delores Liz M.D. Ordering Physician: Kaitlynn Liz M.D. Date of Service: 04/09/24 Procedure(s): US jose ous doppler LE BI Accession Number(s): [id number] cc: Kaitlynn Liz M.D. [address] [id number] Patient Name: QUETA LOVE MRN: [id number] date: 1945 Sex: M Assigned Patient Location: US Current Patient Location: Accession/Order Numb er: [id number] Exam Date: 04/09/2024 15:25 Report Date: 04/10/2024 05:38 At the request of: KAITLYNN CIPRIANO Procedure: US venous doppler LE BI EXAMINATION: US veno us doppler LE BI HISTORY: Edema R60.9 COMPARISON: None FINDINGS: REGION: Bilateral lo wer extremities THROMBI: None. COMPRESSIBILITY: Nor mal compressibility. FLOW: Normal wavefor m and antegrade flow between 5 and 20 cm/s. OTHER: Prior strippi ng of great saphenous vein. US/US venous doppler LE BI IMPRESSION: 1. No deep vein thrombus within the right or left lower extremity. Electronically authenticated by: CHELE PALAFOX Date: 04/10/2024 05:38 Dictated By: Chele Palafox M.D. Signed By: 04/10/2440 DD/ TD/TT: Neck Pinner: PSA Total+% Free Reviewed date:03/24/2025 04:20:56 PM Interpretation: Performing Lab: Notes/Report: [facility] , Prostate Specific Ag 6.7 0.0-4.0 ng/mL Yashira ECLIA methodology. According to the [employer], Serum PSA should decrease and remain at undetectable levels after radical prostatectomy. The AUA defines biochemical recurrence as an initial PSA value 0.2 ng/mL or greater followed by a subsequent confirmatory PSA value 0.2 ng/mL or greater. Values obtained with different assay methods or kits cannot be used interchangeably. Results cannot be interpreted as absolute evidence of the presence or absence of malignant disease. PSA, Free 1.07 N/A ng/mL Yashira ECLIA methodology. % Free PSA 16.0 . % The table below lists the probability of prostate cancer for men with non-suspicious SUZY results and total PSA between 4 and 10 ng/mL, by patient age (Alexander et al, ALEX 1998, 279:1542). % Free PSA 50-64 yr 65-75 yr 0.00-10.00% 56% 55% 10.01-15.00% 24% 35% 15.01-20.00% 17% 23% 20.01-25.00% 10% 20% >25.00% 5% 9% Please note: Alexander et al did not make specific recommendations regarding the use of percent free PSA for any other population of men. Performed at: [facility] [address] [id number] Senior Compliance Officer: Roger Ravi PhD, Phone: [phone] Performing Lab: see note - [facility] LB PROF 14(COMP METB) Reviewed date:03/23/2025 07:48:30 PM Interpretation: Performing Lab: Notes/Report: [facility] , Sodium 140 136-145 mmol/L Potassium 4.6 3.5-5.1 mmol/L Chloride 102 98-107 mmol/L Carbon Dioxide 29.6 21.0-32.0 mmol/L Anion Gap 13.0 Glucose 169 74-106 mg/dL Blood Urea Nitrogen 15.0 7.0-18.0 mg/dL Creatinine 1.29 0.70-1.30 mg/dL Estimated GFR ( Mary >60 >=60 mL/min/1.73m 2 Estimated GFR (Non- Sarita 54 >=60 mL/min/1.73m 2 BUN Creatinine Ratio 11.6 Calcium 9.5 8.5-10.1 mg/dL Bilirubin Total 0.6 0.2-1.0 mg/dL Aspartate Amino Transferase 67 15-37 U/L Alanine Aminotransferase 80 16-63 U/L Alkaline Phosphatase 131 46-116 U/L Total Protein 7.5 6.4-8.2 g/dL Albumin Level 3.4 3.4-5.0 g/dL Globulin 4.1 Albumin Globulin Ratio 0.8 Performing Lab: see note ML - [facility] LB LIPID PROFILE Reviewed date:03/23/2025 07:48:30 PM Interpretation: Performing Lab: Notes/Report: [facility] , Triglycerides 158 <=150 mg/dL Cholesterol 170 <=200 mg/dL HDL Cholesterol 43 40-60 mg/dL > or =60 mg/dl - LOW CARDIOVASCULAR RISK <40 mg/dl - HIGH CARDIOVASCULAR RISK LDL Cholesterol Calculated 96.0 <100 mg/dl OPTIMAL 100-129 mg/dl NEAR OR ABOVE OPTIMAL 130-159 mg/dl BORDERLINE HIGH 160-189 mg/dl HIGH >190 mg/dl VERY HIGH VLDL CHOLESTEROL 31.6 Chol HDL Ratio 4.0 3.3 - 4.4 LOW RISK 4.4 - 7.1 AVERAGE RISK 7.1 - 11.0 MODERATE RISK >11.0 HIGH RISK Performing Lab: see note - [facility] LB GLYCOHEMOGLOBIN A1C Reviewed date:03/23/2025 07:48:30 PM Interpretation: Performing Lab: Notes/Report: [facility] , Glycohemoglobin A1C 7.3 4.5-6.2 % ADA RECOMMENDED LIMIT 4.0 - 6.0 ADA THERAPEUTIC TARGET < 7.0 ACTION SUGGESTED > 7.0 Estimated Average Glucose 163 Performing Lab: see note - [facility] LB CBC AUTO DIFF Reviewed date:03/23/2025 07:48:30 PM Interpretation: Performing Lab: Notes/Report: [facility] , White Blood Count 7.3 4.0-11.0 10 3/uL Red Blood Count 3.56 4.70-6.10 10 6/uL Hemoglobin 12.1 14.0-18.0 g/dL Hematocrit 37.4 42.0-54.0 % Mean Corpuscular Volume 105.1 80.0-94.0 fL 1+ M acrocytosis Present Mean Corpuscular Hemoglobin 34.0 25.9-34.0 pg Mean Corpuscular HGB Conc 32.4 29.9-35.2 g/dL Red Cell Distribution Width 13.2 11.0-15.0 % Platelet Count 174 150-450 10 3/uL Mean Platelet Volume 11.0 9.5-13.5 fL Neutrophils Percent Auto 63.3 43.0-75.0 % Lymphocytes Percent Auto 23.6 20.5-60.0 % Monocytes Percent Auto 12.3 1.7-12.0 % Eosinophils Percent Auto 0.0 0.9-7.0 % Basophils Percent Auto 0.3 0.2-2.0 % Immature Granulocytes Pct Auto 0.5 0.0-0.5 % Neutrophils Absolute Auto 4.6 1.4-6.5 10 3/uL Lymphocytes Absolute Auto 1.7 1.2-3.8 10 3/uL Monocytes Absolute Auto 0.9 0.3-0.8 10 3/uL Eosinophils Absolute Auto 0.0 0.0-0.7 10 3/uL Basophils Absolute Auto 0.0 0.0-0.1 10 3/uL Immature Granulocytes Abs Auto 0.04 0.00-0.03 10 3/uL Performing Lab: see note ML - [facility] LB Reason For Referral Diagnosis 1 PSA elevation (R97.2 0) Referral Organization [facility] Referring Provider First Name Robbin Referring Provider Last Name Cipriano Referring Provider Speciality [facility] ezekiel Referred Provider Dao Grimm Referred Provider Specialty Urology Referral Priority Routine Medications Medication SIG (Take, Route, Frequency, Duration) Notes Start Date End Date Status FeroSul 325 (65 Fe) MG 1 tablet Orally t wice daily for 90 days Active Centrum Silver Ultra Mens Active Fluticasone Propionate 50 MCG/ACT INSTILL 1 SPRAY IN EACH NOSTRIL ONCE DAILY FOR 30 DAYS for 30 Active Blood Glucose Test Strip Active Blood Glucose Monitor Active Metoprolol Tartrate 50 MG 1 tablet with food Orally Twice a day for 90 days 04/09/2024 Active Glimepiride 1 mg TAKE ONE TABLET BY M OUTH DAILY WITH FIRST MEAL OF THE DAY for 90 days Active Pantoprazole Sodium 40 MG 1 tablet Orall y Once a day for 90 days 04/09/2024 Active Atorvastatin Calcium 10 MG 1 tablet Oral ly Once a day for 90 days 04/09/2024 Active Aspirin Adult Low Strength 81 MG 1 tablet Orally Once a day for 90 days Active Immunizations Vaccine Route Administration Date Status Comme nts Flu, Fluad (89896) 65 yrs an d older, single-dose syringe [...] Risk Notes Problem Lumbosacral spondylosis without myelopathy (83575220) Other spondylosis, lumbar region (M47.896) Active confirmed Problem Balanitis (54710748) Balanitis (N48.1) Active confirmed Problem Hyperlipidemia (62052391) Hyperlipidemia (E78.5) Active confirmed Problem Mitral regurgitation (39816020) Mitral regurgitation (I34.0) Active confirmed Problem Hypertension (28671464) Hypertension (I10) Active confirmed Problem Hypothyroidism (24929362) Hypothyroidism (E03.9) Active confirmed Problem Edema (90695347) Edema (R60.9) Active confirmed Problem Left ventricular hypertrophy (26247914) Left ventricular hypertrophy (I51.7) Active confirmed Problem Insomnia (603968695) Insomnia (G47.00) Active confirmed Problem Disorder of lumbar disc (921240701) Lumbar disc disease (M51.9) Active confirmed Problem Leg pain (21038461) Leg pain (M79.606) Active confirmed Problem Dysarthria (9737284) Dysarthria (R47.1) Active confirmed Problem Aortic insufficiency (40594090) Aortic insufficiency (I35.1) Active confirmed Problem Gastroenteritis (48556008) Gastroenteritis (K52.9) Active confirmed Problem Overweight (941803079) Over weight (E66.3) Active confirmed Problem Iron deficiency anemia (56081521) Anemia, iron deficiency (D50.9) Active confirmed Problem Cardiovascular disease (29959117) Cardiovascular disease (I25.10) Active confirmed Problem Cholelithiasis without obstruction (74964751) Gall stone (K80.20) Active confirmed Problem Tinea cruris (336005918) Dermatophytosis, groin (B35.6) Active confirmed Problem Contracture of palmar fascia (419249123) Dupuytren's contracture of left hand (M72.0) Active confirmed Problem Chronic venous insufficiency (07104119) Chronic venous insufficiency (I87.2) Active confirmed Problem Gastro-esophageal reflux disease (063595255) Gastro-esophageal reflux disease (K21.9) Active confirmed Problem Osteoarthritis (705052700) DA (degenerative arthritis) (M19.90) Active confirmed Problem Type II diabetes mellitus without complication (390664274) Diabetes mellitus type 2, diet-controlled (E11.9) Active confirmed Problem Edema (620963713) Edema of both lower extremities (R60.0) Active confirmed Problem Low back pain (finding) (985320757) Low back pain at multiple sites (M54.50) Active confirmed Vital Signs Blood pressure diastolic 82 mm Hg 11/11/2024 Height 71 in 11/11/2024 Blood pressure systolic 126 mm Hg 11/11/2024 Weight 243 lbs 11/11/2024 BMI 33.89 kg/m2 11/11/2024 Encounters Encounter Location Date Provider Diagnosis [place] [address] [place] [address] 03/23/2025 Robbin Hoy Hypothyroidism E03.9 ; Elevated liver enzymes R74.8 and Edema R60.[address] [address] 03/24/2025 Robbin Campbelly PSA elevation R97.[address] [address] 03/31/2025 Robbin Hoy Gall stone K80.[address] [address] 05/07/2024 Robbin Campbelly [facility] [address] [place] [address] 07/29/2024 Robbin Campbelly [place] [address] [place] [address] 08/06/2024 Robbin Hoy Hypertension I10 [place] [address] [place] [address] 08/11/2024 Robbin Campbelly [place] [address] [place] [address] 10/01/2024 Robbin Campbelly [facility] [address] [place] [address] 03/17/2025 Robbin Hoy Hyperlipidemia E78.5 ; Anemia, iron deficiency D50.9 ; Diabetes mellitus type 2, diet-controlled E11.9 ; Fatigue R53.83 ; Colon cancer screening Z12.11 and Encounter for prostate cancer screening Z12.5 [facility] [address] [place] [address] 04/10/2024 Robbin Campbelly [facility] [address] [place] [address] 04/23/2024 Robbin Liz Lumbar disc disease M51.9 [facility] [address] [place] [address] 11/11/2024 Robbin Liz Encounter for [employer] annual wellness exam Z00.00 [facility] [address] [place] [address] 08/06/2024 Robbin Liz Hypertension I10 ; Anemia, iron deficiency D50.9 ; Gastro-esophageal reflux disease K21.9 ; Diabetes mellitus type 2, diet-controlled E11.9 and Rash R21 Assessments Encounter Date Diagnosis (ICD Code) Assessment Notes Treatment Notes Treatment Clinical Notes Section Notes 08/06/2024 Hypertension (ICD-10 - I10) 08/06/2024 Anemia, iron deficiency (ICD-10 - D50.9) 11/11/2024 Encounter for Medicare annual wellness exam (ICD-10 - Z00.00) 04/23/2024 Lumbar disc disease (ICD-10 - M51.9) 08/06/2024 Hypertension (ICD-10 - I10) 03/17/2025 Hyperlipidemia (ICD-10 - E78.5) 03/17/2025 Anemia, iron deficiency (ICD-10 - D50.9) 03/23/2025 Hypothyroidism (ICD-10 - E03.9) 03/23/2025 Elevated liver enzymes (ICD-10 - R74.8) 03/24/2025 PSA elevation (ICD-10 - R97.20) 03/31/2025 Gall stone (ICD-10 - K80.20) 03/23/2025 Edema (ICD-10 - R60.9) 03/17/2025 Diabetes mellitus type 2, diet-controlled (ICD-10 - E11.9) 08/06/2024 Gastro-esophageal reflux disease (ICD-10 - K21.9) 08/06/2024 Diabetes mellitus type 2, diet-controlled (ICD-10 - E11.9) 03/17/2025 Fatigue (ICD-10 - R53.83) 03/17/2025 Colon cancer screening (ICD-10 - Z12.11) 08/06/2024 Rash (ICD-10 - R21) 03/17/2025 Encounter for prostate cancer screening (ICD-10 - Z12.5) Plan Of Treatment Pending Test Test Name Order Date CULTURE, STOOL 08/06/2024 PSA, PROSTATE-SPECIFIC ANTIGEN 3 CT Lumbar w/o contrast * 10/24/2023 FECAL OCCULT BLOOD 03/17/2025 Stool Occult Blood (iFOB) 08/09/2023 CMP14 08/09/2023 CBC W/AUTO DIFF 08/09/2023 US Abdomen - Limited 03/23/2025 GLYCOHEMOGLOBIN A1C 08/06/2023 LIPID PROFILE 08/06/2023 THYROID PROFILE WITH TSH 08/06/2023 THYROID PROFILE WITH TSH 08/09/2023 US JOSE DOP LEG LT 04/09/2024 US JOSE DOP LEG RT 04/09/2024 THYROID PANEL (T4/TSH/FREE T3) 5 THYROID PANEL (T4/TSH/FREE T3) 5 HIDA w/EF 03/31/2025 Insurance Providers Payer Name Payer Address Payer Phone Subscriber Number Group Number Insured Name Patient Relationship to Insured Coverage Start Date Coverage End Date MEDICARE RAILROAD [address] [address] [place], [place] [id number] Queta Love Self - patient is the insured [facility] [address] [place] [address] [id number] Queta Love Self - patient is the [...]
--- OUTSIDE RECORDS SUMMARY | 2025-04-10 08:47 | XMS_ITS | Patient Health Record ---
Author Organization [facility] Address [address] [place] [address] Care Team Providers Care Rooming House Operator Name Role Phone Abrahan Cota Primary Care Provider Unavailzainab Gerard ClaJed solis Unavailable [phone] Mell Austin Unavailable [phone] Priscilla Conroy Unavailable [phone] Reason For Referral No Information Medications Medication SIG (Take, Route, Frequency, Duration) Notes Start Date End Date Status Cyclobenzaprine Hydrochlorid e 10 mg 1 tab(s) orally 3 times a day prn muscle spasms 03/10/2024 Active pantoprazole 40 mg for 90 Days Active Atorvastatin calcium 10 MG for 90 Days Active Metoprolol Tartrate 50 mg for 90 Days Active glimepiride 1 mg for 90 Days A ctive Aspirin Low Dose 81 mg TAKE ONE TABLET B Y MOUTH ONCE DAILY for 90 Days Active spironolactone 25 mg for 15 Days Active pantoprazole 40 mg TAKE ONE TABLET BY MOUTH ONCE DAILY for 90 Days Active omeprazole 20 mg for 90 Days A ctive Problems Problem Type SNOMED Code ICD Code Onset Dates Problem Status W/U Status Risk Notes Problem 480330464 Aftercare following surgery of the musculoskeletal system (Z47.89) Active confirmed Problem 814722294 Arthrodesis stat us (Z98.1) Active confirmed Problem 96295740 Muscle weakness (M62.81) Active confirmed Problem 453670073 Spinal stenosis, lumbosacral region (M48.07) Active confirmed Problem 12437761 Other intervertebral disc degeneration, 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 confirmed Problem 0082255 Radiculopathy, lumbosacral region (M54.17) Active confirmed Problem 205995669443417 Sciatica, left side (M54.32) Active confirmed Problem 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) Active confirmed Vital Signs Height 71 in in 03/27/2025 Weight 230 lbs 03/27/2025 BMI 32.07 03/27/2025 Encounters Encounter Location Date Provider Diagnosis [facility] [address] [place] [address] [place] [address] 06/06/2024 Austin Monte Aftercare following surgery of the musculoskeletal system Z47.89 and Arthrodesis status Z98.1 [facility] [address] [place] [address] 03/27/2025 Austin Monte Encounter for other orthopedic aftercare Z47.89 [facility] [address] [place] [address] [place] [address] 04/18/2024 Priscilla Harveyitera Aftercare following surgery of the musculoskeletal system Z47.89 and Arthrodesis status Z98.1 [facility] [address] [place] [address] [place] [address] 09/19/2024 Priscilla [facility] Aftercare following surgery of the musculoskeletal system Z47.89 ; Muscle weakness M62.81 and Arthrodesis status Z98.1 [facility] [address] [place], [place] [id number] 02/26/2025 Angelicaabdifatah GerardAbhishek Assessments Encounter Date Diagnosis (ICD Code) Assessment [...] p HWR L4-5, L2-S1 decompression, L2-5 fusion 03/27/2025 Encounter for other orthopedic aftercare (ICD-10 - Z47.89) 1. 1 year status post L4-5 hardware removal with L2-S1 decompression and L2-5 fusion 09/19/2024 Arthrodesis status (ICD-10 - [...] Date Lumbar spine, 4v flex ext - 68898 2024 Lumbar spine, 4v flex ext - 75365 2023 Lumbar spine, 4v flex ext - 42373 2024 Lumbar spine 2v ap and lat - 95197 04/18 Lumbar spine 2v ap and lat - 15745 06/06 Surgery Scheduling 02/12/2024 DME - Lumbar Support, Surgical OTS 03/10 SFS - Lumbar Spine PT Order, Isometrics & Strenghening w/Modalities as needed, 2-3 times per week for 6 weeks 01/04/2024 Type and Cross Blood 2 units 03/10/2024 BONE STIMULATOR 03/10/2024 MRI LUMBAR WITHOUT CONTRAST 12/07/2023 Future Test Test Name Order Date Chest 2 views - 15659 02/12/2024 CBC 02/12/2024 HGB A1C 02/12/2024 PT/PTT 02/12/2024 BMP 02/12/2024 MRSA (Bilateral Nares) PCR 02/12/2024 EKG 02/12/2024 Insurance Providers Payer Name Payer Address Payer Phone Subscriber Number Group Number Insured Name Patient Relationship to Insured Coverage Start Date Coverage End Date [employer] [address] [address] [place] [address] [id number] QUETA QUIROGA Self - patient is the insured [facility] SUPPLEMENT [address] [place] [address] [id number] QUETA QUIROGA Self - patient is the insured Medical (General) History Surgical History Surgery Date(Month/Year) L2-S1 laminectomy, L2-5 PSF 03/12/2024
== END 2025-04-10 08:45 | disposition home or self-care (01) ==
LOC: NM 08:45
PROVIDERS: PCP Family Medicine; Visit Provider Family Medicine
DX: K80.20 Calculus of gallbladder without cholecystitis without obstruction (principal)
CPT/HCPCS: 78227; A9537